=== PATIENT | female | born 1960 | race Caucasian/White ===

== ENCOUNTER → 2016-11-02 | Outpatient (CLI) | payer MEDICARE, MEDICAID ==
[~2016-11-02] MED LIST: ACETAMINOPHEN500 M3 PO; ALBUTEROL-200 PUFFS/ IH; ALBUTEROL0.09 MG/A1 IH; ASPIR-LOW81 MG PO; ASPIRIN 81MG TA81 MG PO; ATORVASTATIN CA20 MG PO; AVPAK AZITHROM250 MG PO; AZITHROMYCIN250 M1 PO; AZITHROMYCIN500 MG PO; BACTRIM DS 8001 TA1 PO; CALCITRIOL 00.25 MCG PO; CALCITRIOL0.25 MCG PO; CALCIUM 500 + D1 TA1 PO; CALCIUM500 MG PO; CARVEDILOL6.25 M1 PO; CARVEDILOL6.25 MG PO; CIPRO 500MG TA500 MG PO; CLARITIN10 MG OR; CLARITIN10 MG PO; CLOPIDOGREL75 M2 PO; COMBIVENT1 ARO IH; COUMADIN 5MG TAB5 MG PO; DIAZEPAM5 M1 PO; DIAZEPAM5 MG PO; DOCUSATE SODIU250 M1 PO; DOXYCYCLINE MO100 MG PO; DUONEB 3 MG/3 ML3 ML IH; EVISTA60 MG PO; EYE DROP ORIGIN15 ML OP; FAMOTIDINE 20MG20 MG PO; FLANAX220 MG PO; FLONASE 50 MCG16 GM; FUROSEMIDE 20MG20 MG PO; GABAPENTIN300 M1 PO; GABAPENTIN300 MG OR; GABAPENTIN300 MG PO; IBUPROFEN 600M600 MG PO; IBUPROFEN600 MG PO; IMDUR60 MG PO; IPRATROPIUM 2.2.5 ML IH; IPRATROPIUM BROM3 M1 IN; LANOXIN 0.120.125 MG PO; LEVAQUIN500 MG PO; LEVOFLOXACIN 5500 M1 PO; LEVOTHROID0.1 MG PO; LEVOTHYROXIN0.088 MG PO; LEVOTHYROXINE0.1 M2 PO; LIPITOR20 MG PO; LIPITOR40 MG PO; LISINOPRIL 5MG T5 MG PO; LISINOPRIL5 MG PO; LORTAB 500 MG-71 TAB PO; LOSARTAN POTAS100 MG PO; LOVENOX 6060 MG/0.6 SC; MACROBID100 M3 PO; MAGNESIUM400 MG PO; MEDROL 4MG. DOSE4 MG PO; METOPROLOL25 MG PO; MIRALAX(PO17 GM/1 PA PO; MUCINEX DM 60 M1 TER PO; NEURONTIN 300M300 MG PO; NICOTINE PATCH;14 MG TD; OMEPRAZOLE40 MG PO; OMNICEF 300 MG300 MG PO; ORAPRED15 MG/5 ML PO; OXYBUTYNIN5 MG PO; PERCOCET 5/3251 EACH PO; PHENERGAN 25MG.25 M1 PO; PLAVIX75 MG PO; PRAVASTATIN20 MG PO; PREDNICOT10 MG PO; PREDNISONE 20MG20 MG PO; PREDNISONE20 MG PO; RALOXIFENE HCL60 MG PO; RANITIDINE HCL150 MG OR; RANITIDINE HYD150 MG PO; SPIRIVA HA1 PUFF/INH IH; SULFAMETHOXAZOL1 TA6 PO; SYMBICORT1 AE1 IH; SYNTHROID 0.1M0.1 MG PO; SYNTHROID0.2 MG PO; TESSALON PERLE100 M1 PO; TESSALON PERLE100 MG PO; TESSALON PERLE200 MG PO; TRIAMCINOLON 0.80 G2 TP; TUMS REGULAR S500 MG PO; TYLENOL325 MG PO; VENTOLIN H0.09 MG/AC IH; VENTOLIN H0.09 MG/Ac IH; VIBRAMYCIN 100100 MG PO; WARFARIN4 MG PO; XARELTO15 MG PO; ZITHROMAX 250M250 MG PO; ZITHROMAX Z PA250 MG PO; ZITHROMAX Z-PA250 M1 PO; ZOFRAN4 MG PO; [UNRECOGNIZED DRUG - OTHER] PO
[2016-11-02 16:17] LABS: URINE BILIRUBIN - DIPSTICK NEGATIVE (NEG); URINE BLOOD TRACE-INTACT (NEG)
[2016-11-02 16:27] LABS: URINE SQUAMOUS CELLS OCC #/hpf (0-5)
[2016-11-02 16:36] LABS: HEMOGLOBIN 12.5 g/dL (12.2-16.2); LYMPH # 1.2 K/mm3 (0.7-4.5); LYMPH % 16.8 % (10-50.0)
[2016-11-02 17:32] LABS: BUN 11 mg/dL (7-18)
[2016-11-02 18:04] LABS: GFR (ESTIMATED) 52 ML/MIN (59-)
== END ==
LOC: LAB 15:16
PROVIDERS: Hospitalist
DX: N18.9 Chronic kidney disease, unspecified (principal); R82.99 Other abnormal findings in urine

== ENCOUNTER → 2016-11-04 | Outpatient (CLI) | payer MEDICARE, MEDICAID | LOC: LAB 14:16 | PROVIDERS: Hospitalist | DX: N18.9 Chronic kidney disease, unspecified (principal) ==

== ENCOUNTER 2017-04-03 12:54 | Emergency (ER) | payer MEDICARE, MEDICAID ==
[~2017-04-03] VITALS: Ht 149.9 cm; Wt 66.2 kg
[2017-04-03 13:16] LABS: URINE BILIRUBIN - DIPSTICK NEGATIVE (NEG); URINE BLOOD 3+ (NEG)
--- OUTSIDE RECORDS SUMMARY | 2017-04-03 13:16 | External Medical Summary Rpt ---
Author Author [employer] Organization [employer] Address Unknown Phone Unavailable Purpose Continuity of Care Document - through 2016
--- OUTSIDE RECORDS SUMMARY | 2017-04-03 13:31 | External Medical Summary Rpt ---
Author Author , Organization [employer] Address Unknown Phone Unavailable Care Team Providers Care Immigration Investigator Name Role Phone LURDES ANASTACIA, LURDES Unavailable Unavailable ANASTACIA LURDES ANASTACIA, LURDES Unavailable Unavailable ANASTACIA GILES, GILES Unavailable Unavailable GILES SONDRA, GILES Unavailable Unavailable SONDRA GILES SONDRA, GILES Unavailable Unavailable SONDRA GILES, FLO D, Unavailable Unavailable GILES, FLO D ALFARIS MOH, ALFARIS Unavailable Unavailable MOH ALFARIS MOH, ALFARIS Unavailable Unavailable MOH ROSARIO YEH JR, Unavailable Unavailable ROSARIO YEH JR [facility] Unavailable Unavailable [facility], [facility] Unavailable Unavailable INC, [facility] ANJUR-KAPALI GOMEZ, Unavailable Unavailable ANJUR-KAPALI GOMEZ ANJUR-KAPALI GOMEZ, Unavailable Unavailable ANJUR[facility]KAPAL[facility] GOMEZ TENA, TENA Unavailable Unavailable [facility] Unavailable Unavailable MEDICAL GROUP, [facility] BEINEKE ELISSA, BEINEKE Unavailable Unavailable ELISSA BESSON, BESSON Unavailable Unavailable BESSON IZA, BESSON Unavailable Unavailable IZA BESSON IZA, BESSON Unavailable Unavailable IZA KYARASON, COLBY A, Unavailable Unavailable BESSON COLBY A [facility] Unavailable [facility]available [facility] BIRD, BIRD Unavailable Unavailable BIRD ALL, BIRD ALL Unavailable Unavailable ANDER RODRIGUEZ, Unavailable Unavailable ANDER RODRIGUEZ SHANNA, ERLIN Unavailable Unavailable SHANNA PHILLIPS MD Unavailable Unavailable PSCPerla MD PSC JAZMIN CHAGO, JAZMIN Unavailable Unavailable [facility] Unavailable Unavailable [facility], [facility] Unavailable Unavailable [facility] AN[facility] OF Unavailable Unavailable [facility], [facility] CLEO GALLO Unavailable Unavailable CLEO NOHEMI, Unavailable Unavailable CLEO NOHEMI CLEO NOHEMI, Unavailable Unavailable CLEO NOHEMI CLEO, CIRA, Unavailable Unavailable CLEO, CIRA [facility] # [id number], Unavailable Unavailable [facility] # [id number] [id number], Unavailable Unavailable [id number] LAUREN STONE PA-C Unavailable Unavailable DEEPAK, LAUREN JENKINS PA-C DEEPAK NETTIE, NETTIE Unavailable Unavailable [facility] Unavailable [place]available [place] [facility] DON STEFANIE, Unavailable Unavailable DON STEFANIE DARCIE BRA, DARCIE BRA Unavailable Unavailable [facility], [facility] Unavailable Unavailable [facility], F[facility]UJI Unavailable Unavailable MEME FALLUJI, NEZAR M, Unavailable Unavailable FALLUJI, NEZAR M MARGARET BRAVO Unavailable Unavailable A, GEN BRAVOER A FEEBACK REE, FEEBACK Unavailable Unavailable REE SHAIKH THO, Unavailable Unavailable SHAIKH THO MCBRIDE MEL, Unavailable Unavailable MCBRIDE PARI DOUGLAS, Unavailable Unavailable PARI TYLER GIRON MAR, GIRON MAR Unavailable Unavailable AAMIR, AAMIR Unavailable Unavailable GAGUA IRI, GAGUA IRI Unavailable Unavailable BREEZY, BREEZY Unavailable Unavailable BREEZY MATY, BREEZY Unavailable Unavailable MATY BREEZY MATY, BREEZY Unavailable Unavailable MATY TIMOTHY TIJERINA S, Unavailable Unavailable BREEZY TIMOTHY S BRIJESH LIANG MD, Unavailable Unavailable BRIJESH LIANG MD, Unavailable Unavailable BRIJESH LIANG MD CORRIE RHO, CORRIE Unavailable Unavailable RHO CORRIE RHO, CORRIE Unavailable Unavailable RHO HAJIBRAHIM SARAH, Unavailable Unavailable HAJIBRAHIM SARAH ABRIL MARIJA, ABRIL Unavailable Unavailable ANY REDMOND, Unavailable Unavailable ANY MARROQUIN HARPEL STEFANIE, HARPEL Unavailable Unavailable STEFANIE HARPEL STEFANIE, HARPEL Unavailable Unavailable STEFANIE HARPEL, BRIJESH R, Unavailable Unavailable HARPEL, BRIJESH R SAMSON TIFFANIE, SAMSON Unavailable Unavailable TIFFANIE [facility] Un[facility] Unavailable INC, [facility] Unavailable Unavailable HOSPITAL P, [facility], Unavailable Unavailable [facility] AP WASSERMAN, AP Unavailable Unavailable JUAN M ATWOOD Unavailable Unavailable [facility] Unavailable Unavailable [facility], [facility] Unavailable Unavailable MEDICAL G, [facility] Un[facility], [facility] [employer] [facility], Unavailable Unavailable [facility] LAMIY, LAMIY Unavailable Unavailable LAMIY TAYLOR, LAMIY TAYLOR Unavailable Unavailable HERR, HERR Unavailable Unavailable HERR FRANKIE, HERR Unavailable Unavailable FRANKIE HERR FRANKIE, HERR Unavailable Unavailable FRANKIE SMITH GLE, SMTIH GLE Unavailable Unavailable SMITH, ROHAN L, Unavailable Unavailable SMITH, ROHAN L PEDRO DWI, PEDRO DWI Unavailable Unavailable PEDRO JR DWI, PEDRO Unavailable Unavailable JR DWI [place] [facility] ALBERT IAZ, ALBERT IZA Unavailable Unavailable ALBERT IZA, ALBERT IZA Unavailable Unavailable KATHY RUTLEDGE, Unavailable Unavailable KATHY RUTLEDGE MARCHINO IZA, Unavailable Unavailable MARCHINO IZA [facility] Unavailable Unavailable SERVICES, [facility] PARI PRATT, Unavailable Unavailable PARI PRATT COHEN Unavailable Unavailable COHEN JAM, Unavailable Unavailable COHEN PARI SIMPSON R, Unavailable Unavailable PARI COHEN R MCKEMIE JR IRAIDA, Unavailable Unavailable MCKEMIE JR IRAIDA MCKEMIE JR IRAIDA, Unavailable Unavailable MCKEMIE JR IRAIDA MOAMMAR NASIMA, MOAMMAR Unavailable Unavailable NASIMA MOAMMAR NASIMA, MOAMMAR Unavailable Unavailable NASIMA YOJANA MCCURDY, Unavailable Unavailable YOJANA MCCURDY PATRICK, Unavailable Unavailable CLYDE PEDRO JOHN M, Unavailable Unavailable [facility] Unavailable Unavailable [facility], [facility], Unavailable Unavailable [facility] Unavailable Unavailable LAB, [facility] PAVEZ MAR, PAVEZ MAR Unavailable Unavailable PETTEY JAM, PETTEY Unavailable Unavailable JAM PETTEY JAM, PETTEY Unavailable Unavailable JAM MERLENE MUB, MERLENE MUB Unavailable Unavailable MERLENE MUB, MERLENE MUB Unavailable Unavailable AGUDELO, AGUDELO Unavailable Unavailable AGUDELO NABIL, AGUDELO Unavailable Unavailable NABIL JACQUI TOD, JACQUI TOD Unavailable Unavailable ZIMMERMAN, ZIMMERMAN Unavailable Unavailable Sharif PEDRO, Unavailable Unavailable Sharif PEDRO MATY, Unavailable Unavailable DELIA MATY SCHULSTAD CARLOS, Unavailable Unavailable SCHULSTAD CARLOS SCHULSTAD, FLORECITA, Unavailable Unavailable SCHULSTAD, FLORECITA SHASHY LISA, SHASHY Unavailable Unavailable LISA PRATHERJAEI-CORNELL, Unavailable Unavailable SHOJAEI-CORNELL SOKAN BAB, SOKAN BAB Unavailable Unavailable SOKAN, TARYN O, Unavailable Unavailable SOKAN, TARYN O [facility] Unavailable Unavailable [facility], [facility] Unavailable [facility]available [facility], [facility], Unavailable Unavailable [facility], Unavailable Unavailable [facility] LAMBERT DON, Unavailable Unavailable LAMBERT DON LAMBERT DON, Unavailable Unavailable LAMBERT DON LAMBERT, DON R, Unavailable Unavailable LAMBERT, DON R [facility] Un[facility]available [place] [facility] WEHRMAN III IRAIDA, Unavailable Unavailable WEHRMAN III IRAIDA JERONIMO DON, JERONIMO DON Unavailable Unavailable JERONIMO HERRERA Unavailable Unavailable ALYCIA IV A, Unavailable Unavailable ALYCIA IV A [facility] Unavailable [facility] Un[facility], Un[facility], Unavailable [facility]available [facility] Purpose Continuity of Care Document - 11-22-2007 through 2016 Problems Code Diagnosis DOS Provider Status J0101 ACUTE 02-03-2017 [facility] RECURRENT PHYSICIANS MAXILLARY GROUP SINUSITIS J342 DEVIATED 02-03-2017 [facility] NASAL PHYSICIANS SEPTUM GROUP J432 CENTRILOBUL 02-02-2017 [place] AR [facility]ICAL EMPHYSEMA IMAGING ASS J449 CHRONIC 02-02-2017 [place] OBSTRUCTIVE MEDICAL PULMONARY IMAGING ASS DISEASE UNS R911 SOLITARY 02-02-2017 [place] PULMONARY MEDICAL NODULE IMAGING ASS E559 VITAMIN D 01-24-2017 [facility] UNSPECIFIED OF [place] E876 HYPOKALEMIA 01-24-2017 [facility] I10 ESSENTIAL 01-24-2017 [facility]IMARY [facility] HYPERTENSIO OF [place] N I701 ATHEROSCLER 01-24-2017 [facility] OSIS OF ASSOCIATES RENAL OF [place] ARTERY N189 CHRONIC 01-24-2017 [facility] K[facility]NEY [facility] DISEASE OF [place] UNSPECIFIED R339 RETENTION 01-04-2017 [facility] OF URINE [facility] P I471 SUPRAVENTRI 12-16-2016 [facility] C[facility] TACHYCARDIA INC I472 VENTRICULAR 12-16-2016 [facility] TACHYCARDIA INC R0609 OTHER FORMS 12-16-2016 [facility] DYSPNEA MEM [facility]OS[facility] INC R9431 ABNORMAL 12-16-2016 [facility] ELECTROCARD [facility] IOGRAM INC J309 ALLERGIC 12-08-2016 [place] [facility]PEC[facility] R002 PALPITATION 12-07-2016 [facility] G E039 HYPOTHYROID 12-06-2016 [facility] ISM PHYSICIANS UNSPECIFIED GROUP E8351 HYPOCALCEMI 12-06-2016 [facility] A PHYSICIANS GROUP E892 POSTPROCEDU 11-22-2016 [facility] RAL [facility]OC[facility]ATES HYPOPARATHY OF [place] ROIDISM N959 UNSPECIFIED 10-11-2016 [facility] MENOPAUSAL PHYSICIANS & GROUP PERIMENOPAU ROSALIE DISORDER R0781 PLEURODYNIA 10-11-2016 [facility] PHYSICIANS GROUP D649 ANEMIA 09-29-2016 [facility] P C498AWJ UNSPECIFIED 09-20-2016 [place] INJURY OF MEDICAL THORAX IMAGING ASS INITIAL ENCOUNTER Z98907S CONTUSION 09-16-2016 [facility] RT FRONT [facility] WALL THORAX INC INITIAL ENCOUNTER T65293 PERSONAL 09-16-2016 [facility] HISTORY OF [facility] NICOTINE INC DEPENDENCE K219 GASTRO-ESOP 09-14-2016 [facility] H REFLUX PHYSICIANS DISEASE GROUP WITHOUT ESOPHAGITIS E8342 HYPOMAGNESE 09-01-2016 [facility] CINDY PHYSICIANS GROUP G4734 IDIOPATH 09-01-2016 [facility] ALVEOL HYPOVENTILA [place] J439 EMPHYSEMA 09-01-2016 [facility] HOSPI R918 OTHER 09-01-2016 [facility] ABNORMAL HOSPI FINDING OF LUNG FIELD Z139 ENCOUNTER 09-01-2016 [facility] FOR PHYSICIANS SCREENING GROUP UNSPECIFIED R05 COUGH 08-25-2016 [place] [facility] R079 CHEST PAIN 08-25-2016 [place] UNSPECIFIED MEDICAL IMAGING ASS J069 ACUTE UPPER 08-22-2016 [facility] RESPIRATORY INC INFECTION UNSPECIFIED R0989 OTH SPEC SX 08-22-2016 [place] & SIGNS MEDICAL INVLV THE IMAGING ASS CIRC & RESP SYS N390 URINARY 07-21-2016 [facility] TRACT [facility] INFECTION INC SITE NOT SPECIFIED M78420 OTHER 07-12-2016 [facility] MUSCLE PHYSICIANS SPASM GROUP R56107 PAIN IN 07-12-2016 [facility] UNSPECIFIED PHYSICIANS LIMB GROUP N3020 OTHER 07-12-2016 [facility] CHRONIC [facility] CYSTITIS INC WITHOUT HEMATURIA H5712 OCULAR PAIN 07-11-2016 [facility] LEFT EYE [facility] INC R109 UNSPECIFIED 07-02-2016 [place] ABDOMINAL MEDICAL PAIN IMAGING ASS Z9049 ACQUIRED 07-02-2016 [facility] OTH MEDICAL SPEC PARTS IMAGING ASS DIGESTIVE TRACT H109 UNSPECIFIED 06-28-2016 [facility] PHYSICIANS CONJUNCTIVI GROUP TIS M46038 PAIN IN 06-21-2016 [facility] RIGHT ARM [facility] INC J04602 PAIN IN 06-21-2016 [facility] INC R55328 PAIN IN 06-21-2016 [facility] RIGHT LEG [facility] INC I54729 PAIN IN 06-21-2016 [facility]G [facility] INC D126 BENIGN 06-15-2016 [facility] NEOPLASM OF PHYSICIANS COLON GROUP UNSPECIFIED Y94272 PERSONAL 06-15-2016 [facility] HISTORY OF PHYSICIANS COLONIC GROUP POLYPS D497 NEOPLASM OF 06-03-2016 [facility] UNS BHV PHYSICIANS ENDOCRN GROUP GLAND & OTH PART NS E201 PSEUDOHYPOP 06-03-2016 [facility] ARATHYROIDI PHYSICIANS SM GROUP G737 MYOPATHY IN 06-03-2016 [facility] DISEASES PHYSICIANS CLASSIFIED GROUP ELSEWHERE K635 POLYP OF 06-03-2016 [facility] COLON PHYSICIANS GROUP Z09 ENC F/U 06-03-2016 [facility] EXAM AFTR ANESTH OF CMPL TX OTH THE BLUE THAN MALIG NEOPLSM Z1211 ENCOUNTER 06-03-2016 [facility] SCREENING PHYSICIANS MALIGNANT GROUP NEOPLASM OF COLON M859 DISORDER OF 05-20-2016 [facility] BONE PHYSICIANS DENSITY & GROUP STRUCTURE UNSPECIFIED J209 ACUTE 05-15-2016 [place] BRONCHITIS [facility] P G55875 ENCOUNTER 04-28-2016 [facility] AL EXAMINATION S80455 PAIN IN ARM 04-26-2016 [facility] PHYSICIANS UNSPECIFIED GROUP Y76617 PAIN IN LEG 04-26-2016 [facility] PHYSICIANS UNSPECIFIED GROUP M797 FIBROMYALGI 04-26-2016 [facility] A PHYSICIANS GROUP J441 CHRONIC 04-17-[address] [place] [address] [facility] PULMONARY INC DZ W/EXACERBAT ION 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 04-06-2016 [place] [facility] P N319 NEUROMUSCUL 04-06-2016 [facility] P OF BLADDER UNSPECIFIED N289 DISORDER OF 04-01-2016 [place] [facility]ICAL URETER IMAGING ASS UNSPECIFIED R1030 LOWER 04-01-2016 [place] ABDOMINAL MEDICAL PAIN IMAGING ASS UNSPECIFIED R3919 OTHER 04-01-2016 [place] DIFFICULTIE MEDICAL S WITH IMAGING ASS MICTURITION R1084 GENERALIZED 03-23-2016 [facility] P Z720 TOBACCO USE 03-23-2016 [facility] P W08731 SPONDYLOSIS 02-27-2016 [facility]O RADI[facility] MYELOPATH/R ASSOC ADICULOPATH Y LUMB RGN M545 LOW BACK 02-27-2016 [facility] PAIN [facility]IOLOGY ASSOC M546 PAIN IN 02-27-2016 [facility]ACIC [facility] SPINE ASSOC Z9889 OTHER 02-23-2016 NE[facility] SPECIFIED ASSOCIATES POSTPROCEDU OF [place] K06273 ATHEROSCLER 02-18-[address] [facility] QAGAN TAYAGUNGIN ART HEALTH EXT MEDICAL G WNTERMIT OSIEL LT LEG P58665 UNS 02-16-2016 [facility] QAGAN TAYAGUNGIN ART EXTREM BILATERAL LEGS I739 PERIPHERAL 02-16-2016 [facility] DISEASE UNSPECIFIED R3915 URGENCY OF 01-27-2016 [place] URINATION [facility] P J329 CHRONIC 01-15-2016 [facility] SINUSITIS PHYSICIANS UNSPECIFIED GROUP I6523 OCCLUSION & 01-01-[address] 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 I708 ATHEROSCLER 11-24-2015 [place] OSIS OF MEDICAL OTHER IMAGING ASS ARTERIES K17670 PAIN IN 11-24-2015 [place] UNSPECIFIED MEDICAL LOWER LEG IMAGING ASS W97838 OTH SPEC 11-24-2015 [facility] D/O BONE [facility] DENSITY INC STRUCTURE RT THIGH R202 PARESTHESIA 11-24-2015 [facility] OF SKIN [facility] INC G16526 FACIAL 11-24-2015 [place] WEAKNESS MEDICAL IMAGING ASS J22389 ENCOUNTER 11-24-2015 [facility] FOR [facility] SCREENING INC FOR OSTEOPOROSI S G64 OTHER 10-28-2015 [facility] DISORDERS PHYSICIANS OF GROUP PERIPHERAL NERVOUS SYSTEM G5791 UNSPECIFIED 10-25-2015 [facility] MONONEUROPA INC THY RIGHT LOWER LIMB G5792 UNSPECIFIED 10-25-2015 [facility] MONONEUROPA INC THY LEFT LOWER LIMB J40 BRONCHITIS 10-13-2015 [place] NOT MEDICAL SPECIFIED IMAGING ASS ACUTE OR CHRONIC R0602 SHORTNESS 10-13-2015 [place] OF BREATH MEDICAL IMAGING ASS J4531 MILD 09-30-2015 [facility]STENT [facility] ASTHMA WITH INC ACUTE EXACERBATIO N I491 ATRIAL 09-09-2015 [facility] DEPOLARIZAT MEDICAL G ION R0789 OTHER CHEST 09-09-[address] [facility] PAIN HEALTH MEDICAL G E119 TYPE 2 08-21-[address] 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 P RESPIRATORY ABNORMALITI ES 4019 UNSPECIFIED 07-23-2015 [facility] P N 5950 ACUTE 07-22-2015 [place] CYSTITIS [facility] P 5990 URINARY 07-22-2015 [facility] INFECTION INC SITE NOT SPECIFIED 61768 HEMATURIA 07-22-2015 [facility] UNSPECIFIED [facility] INC 56222 CHEST PAIN 07-10-2015 [facility] UNSPECIFIED MEDICAL IMAGING ASS 2724 OTHER AND 07-03-2015 [facility]NSPECIFIED [facility] INC HYPERLIPIDE CINDY 06459 ESOPHAGEAL 07-03-2015 [facility] ASS 94281 DIARRHEA 07-03-2015 [facility] 7906 OTHER 07-03-2015 [facility] ABNORMAL [facility] BLOOD INC CHEMISTRY 52551 OTHER 07-02-2015 [facility] CANDIDIASIS PHYSICIANS OF OTHER GROUP SPECIFIED SITES 5758 OTHER 07-02-2015 [facility] SPECIFIED [facility] DISORDER OF INC GALLBLADDER 7840 HEADACHE 07-02-2015 [facility] INC V1582 PERS HX 07-02-2015 [place] TOBACCO USE MEM HOS[facility] PRESENTING INC HAZARDS HEALTH 496 CHRONIC 06-20-2015 [facility] OBSTRUCTION [facility] NEC 26229 LUMP OR 04-24-2015 [place] MASS IN MEDICAL BREAST IMAGING ASS 2113 BENIGN 04-02-2015 [facility] NEOPLASM OF PHYSICIANS COLON GROUP 78166 REFLUX 04-02-2015 [facility] ESOPHAGITIS PHYSICIANS GROUP 43134 UNS 04-02-2015 [facility] GASTRITIS&G PHYSICIANS ASTRODUODIT GROUP IS W/O MENTION HEMORR V7651 SPECIAL 04-02-2015 [facility] SCREENING PHYSICIANS FOR GROUP MALIGNANT NEOPLASMS COLON 39703 OTHER 02-04-2015 [facility] P OF BLADDER 80941 OTHER 02-04-2015 [place] ABNORMALITY [facility] P URINATION 14403 OBSTRUCTIVE 01-24-2015 [facility] 226 BENIGN 11-11-2014 [facility] NEOPLASM OF THYROID GLANDS 17557 DYSPHAGIA 11-11-2014 [facility] UNSPECIFIED 490 BRONCHITIS 11-06-2014 [facility] P ACUTE OR CHRONIC 76206 ASTHMA, 11-06-2014 [facility] P UNSPECIFIED STATUS 60209 OTHER 11-03-2014 [place] DISEASES OF [facility] HOSPITAL P ELSEWHERE CLASSIFIED 7862 COUGH 11-03-2014 [place] [facility] 4439 UNSPECIFIED 10-07-2014 [place] PERIPHERAL MEDICAL VASCULAR IMAGING ASS DISEASE 62568 SOLITARY 09-11-[address] [place] [address] [facility] NODULE INC 47825 OBSTRUCTIVE 07-24-2014 [facility] CHRONIC PHYSICIANS BRONCHITIS GROUP WITH EXACERBATIO N 486 PNEUMONIA, 07-23-2014 [facility] ORGANISM PHYSICIANS UNSPECIFIED GROUP 2449 UNSPECIFIED 07-05-2014 [facility] HYPOTHYROID [facility] P ISM 4139 OTHER AND 07-05-2014 [facility] P PECTORIS 7823 EDEMA 07-05-2014 [facility] P 7295 PAIN IN 05-07-2014 [facility] SOFT [facility] TISSUES OF INC LIMB V1251 PERSONAL 05-07-2014 [facility] HISTORY, [facility] VENOUS INC THROMBOSIS AND EMBOLISM 67346 SHORTNESS 04-13-2014 [facility] MOH OF BREATH 69750 OTHER ANKLE 03-06-2014 [facility] SPRAIN AND [facility] STRAIN INC V571 OTHER 03-06-2014 [place] PHYSICAL [facility] THERAPY INC 15563 OTHER 02-21-2014 [facility] DISEASES OF LARYNX V5869 LONG-TERM 02-18-2014 [place] (CURRENT) [facility] USE OF INC OTHER MEDICATIONS 30554 HYPOCALCEMI 01-10-[address] [facility] INC V5861 LONG-TERM 11-16-2013 [facility] (CURRENT) [facility] USE OF INC ANTICOAGULA NTS 515 POSTINFLAMM 10-29-2013 [facility] ATORY NOHEMI PULMONARY FIBROSIS 4254 OTHER 10-26-2013 [facility] CARDIOMYOPA SHAGGY V143 PERSONAL 10-26-2013 [facility] HISTORY HOSPITAL ALLERGY OTH ANTI-INFECT CLAUDE AGT V145 PERSONAL 10-26-2013 [facility] HISTORY OF HOSPITAL ALLERGY TO NARCOTIC AGENT [address] 10-08-2013 [facility] SUBENDOCARD [facility] P SUBSQT EPIS CARE 92740 COR 10-08-2013 [facility] ATHEROSLERO [facility] P TYPE VESSEL QAGAN TAYAGUNGIN/JUDY T 16539 OTHER CHEST 10-08-2013 [facility] P V1255 PERSONAL 10-08-2013 [facility] HISTORY OF [facility] P EMBOLISM 26668 OSTEOARTHRO 09-12-2013 [facility] S UNSPEC NOHEMI GEN/LOC PELV REGION&THIG H 7242 LUMBAGO 09-12-2013 [facility] NOHEMI 5110 PLEURISY 09-04-2013 [facility] WITHOUT NOHEMI MENTION EFFUS/CURRE NT TB 2869 OTHER AND 08-27-2013 WEHRMAN III UNSPECIFIED [place] COAGULATION DEFECTS 68917 OTHER 08-27-2013 WEHRMAN III CHRONIC [place] PAIN 72192 METHICILLIN 08-21-2013 [facility] RESISTANT NOHEMI STAPHYLOCOC CUS AUREUS 3682 [address]IPLOPIA 08-21-[address] [facility] 7820 DISTURBANCE 08-21-2013 CLE[facility] OF SKIN NOHEMI SENSATION 7944 NONSPECIFIC 08-21-2013 [facility] ABNORM NOHEMI RESULTS KIDNEY FUNCTION STUDY 27957 DIAB W/O 08-18-2013 JERROD COUCH COMP TYPE II/UNS NOT STATED UNCNTRL 19234 ABDOMINAL 08-18-2013 [facility] PAIN, NOHEMI UNSPECIFIED SITE 7822 LOCALIZED 08-13-2013 [facility] SUPERFICIAL NOHEMI SWELLING MASS OR LUMP V1011 PERSONAL 08-11-2013 [facility] HISTORY NOHEMI MALIG NEOPLASM BRONCHUS&MELANY NG V711 OBSERVATION 08-11-2013 [facility] FOR NOHEMI SUSPECTED MALIGNANT NEOPLASM 7847 EPISTAXIS 08-07-2013 [facility] 98[address] CORONARY 08-02-2013 BESSON IZA ATHEROSCLER OSIS QAGAN TAYAGUNGIN CORONARY ARTERY 4821 PNEUMONIA 08-02-2013 [facility] 07181 OTHER 07-24-2013 JERONIMO DON PULMONARY EMBOLISM AND INFARCTION 4179 UNSPECIFIED 07-24-2013 [facility] DISEASE OF NOHEMI PULMONARY CIRCULATION 4239 UNSPECIFIED 07-24-2013 MERLENE MUB DISEASE OF PERICARDIUM 4242 TRICUSPID 07-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 MERLENE MUB VALVE DISORDERS SPEC NONRHEUMATI C 4280 CONGESTIVE 07-24-2013 MOAMMAR NASIMA HEART FAILURE UNSPECIFIED 4293 CARDIOMEGAL 07-24-2013 MERLENE MUB Y 15412 OTHER 07-24-2013 KYARASON IZA PULMONARY INSUFFICIEN CY NEC 73784 ACUTE AND 07-24-2013 MOAMMAR NASIMA CHRONIC RESPIRATORY FAILURE V141 PERSONAL 07-24-2013 KYARAYISEL IZA HISTORY ALLERGY OTHER ANTIBIOTIC AGENT V4502 AUTOMATIC 07-24-2013 [facility] IMPLANTABLE NOHEMI CARDIAC DEFIBRILLAT OR SITU V550 ATTENTION 07-24-2013 [facility] TO NOHEMI TRACHEOSTOM Y V551 ATTENTION 07-24-2013 [facility] TO NOHEMI GASTROSTOMY V5882 ENCOUNTER 07-24-2013 CORRIE RHO FITTING&ADJ NON-VASCULA R CATHETER NEC 4240 MITRAL 07-22-2013 ANJUR-KAPAL VALVE I GOMEZ DISORDERS 54590 ACUT 07-21-2013 ANJUR-KAPAL MYOCARD I GOMEZ INFARCT UNS SITE EPIS CARE UNS 67580 OTHER 07-20-2013 LURDES ANASTACIA NONSPECIFIC ABNORMAL FINDING OF LUNG FIELD 97730 ACUT 07-19-2013 [facility]BERT IZA MYOCARD INFARCT OTH INF WALL EPIS CARE UNS 7905 OTHER 07-19-2013 GAGUA IRI NONSPECIFIC ABNORMAL SERUM ENZYME LEVELS 22372 HYPOXEMIA 07-19-[address] [place] [address] 07-17-2013 BESSON IZA SUBENDOCARD IAL INFARCT INIT EPIS CARE 06094 ACUTE 07-17-2013 BESSON IZA SYSTOLIC HEART FAILURE 5180 PULMONARY 07-17-2013 CLE[facility] COLLAPSE NOHEMI 23921 ACUTE 07-17-2013 BESSON IZA RESPIRATORY FAILURE 3559 MONONEURITI 06-13-2013 CHRISTINE Simon OF [facility] UNSPECIFIED SITE 31942 PAIN IN 04-06-2013 CLEO JOINT, NOHEMI ANKLE AND FOOT 84100 ACHILLES 04-06-2013 PETTEY JAM BURSITIS OR TENDINITIS 38560 PLANTAR 04-06-2013 PETTE[facility] JAM FASCIAL FIBROMATOSI S 4011 ESSENTIAL 01-01-2013 [facility] VAL[facility]INE HYPERTENSIO N, BENIGN 74132 OTHER 01-01-2013 KEW[facility] VAL[facility] PREMATURE BEATS 4359 UNSPECIFIED 01-01-2013 [facility] VALENTINE TRANSIENT CEREBRAL ISCHEMIA 6272 SYMPTOMATIC 12-07-2012 [facility] STEFANIE MENOPAUSAL/ FEMALE CLIMACTERIC STATES 4373 CEREBRAL 10-12-2012 [facility] NONRUPTURED INC 4479 UNSPECIFIED 10-12-2012 [facility] DISORDERS [facility] OF ARTERIES INC AND ARTERIOLES 2409 GOITER, 10-06-2012 [facility] UNSPECIFIED NOHEMI 6259 UNSPEC 10-06-2012 [facility] W/FEMALE GENITAL ORGANS V7612 OTHER 10-06-2012 [facility] SCREENING [facility] MAMMOGRAM INC 4550 INTERNAL 09-28-2012 [facility] STEFANIE HEMORRHOIDS WITHOUT MENTION COMP V7231 ROUTINE 09-28-2012 [facility] STEFANIE GYNECOLOGIC AL EXAMINATION V7641 SCREENING 09-28-2012 [facility] STEFANIE FOR MALIGNANT NEOPLASM OF THE RECTUM 4928 OTHER 09-08-2012 [facility] EMPHYSEMA NOHEMI 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 52816 OCCL&STENOS 02-23-2012 [place] MX&BILAT MEDICAL PRECERBRL IMAGING ASS ART W/O INFARCT 80041 CHRONIC 02-23-2012 [facility] OBSTRUCTIVE [facility] ASTHMA INC UNSPECIFIED 7802 SYNCOPE AND 02-23-2012 [facility] COLLAPSE [facility] INC 48229 URGE 12-07-2011 [facility] INCONTINENC [facility] E INC 7866 SWELLING, 10-12-2011 [place] MEDICAL LUMP IN IMAGING ASS CHEST 69352 DISPLCMT 10-01-2011 [place] 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 95427 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-2011 [place] 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 V163 FAMILY 09-20-2011 [place] HISTORY OF MEDICAL MALIGNANT IMAGING ASS NEOPLASM OF BREAST 6256 FEMALE 07-20-2011 [facility] P E 98860 UNSPECIFIED 07-01-2011 [facility] URINARY [facility] INCONTINENC INC E 08793 HYPERCALCEM 04-08-2011 [facility] IA [facility] INC 5853 CHRONIC 04-08-2011 [facility] DISEASE INC STAGE III (MODERATE) 4241 AORTIC 03-26-2011 [facility] VALVE PHYSICIANS DISORDERS GROUP V7281 PRE-OPERATI 03-26-2011 [facility] VE PHYSICIANS CARDIOVASCU GROUP LAR EXAMINATION 2440 POSTSURGICA 11-30-2010 [facility] HURLEY HYPOTHYROID ISM 82175 DEHYDRATION 11-30-2010 [facility] INC 2768 HYPOPOTASSE 11-30-2010 [facility] H[place]LEY 7817 TETANY 11-30-2010 [facility] P 47112 ANAL OR 11-05-2010 C [facility] RECTAL PAIN JACQUELINE PALMER PSC 12092 FECAL 11-05-2010 C [facility] SMEARING JACQUELINE PALMER PSC 22020 DISORDER OF 10-27-2010 BRIJESH CADENA AND AZUL PALMER CARTILAGE UNSPECIFIED 4279 UNSPECIFIED 09-21-2010 [facility] CARDIAC PHYSICIANS DYSRHYTHMIA GROUP 7859 OTHER 09-07-2010 [place] SYMPTOMS MEDICAL INVOLVING IMAGING ASS CARDIOVASCU LAR SYSTEM 00687 OTH 09-07-2010 [place] NONSPECIFIC [facility] ABNORM CV INC SYSTEM FUNCTION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 HUMIDFR&M ASK ADMN SET A7003 YOUR YOUR SM VOL 6 PHARMACY PHARMACY NONFILTR [facility] PNEUMAT NEBULIZR DISPBL PHRM Q0513 YOUR YOUR DISPENSIN 6 PHARMACY PHARMACY [employer] LLC INHALATIO N RX; PER 30 DAYS AREO MASK A7015 YOUR YOUR USED W/ 6 PHARMACY PHARMACY DME [employer] ALBUTEROL J7620 YOUR YOUR TO 2.5 6 PHARMACY PHARMACY [employer] IPRATROPI UM BROM TO 0.5 MG XTRNL ECG 81875 ROSS HAWKINS & 48 HR 6 [facility] [place] [address] ROSS HAWKINS PARATHORM 6 [facility] ONE INC INC 25 96010 ROSS HAWKINS HYDROXY 6 [facility] INCLUDES INC INC FRACTIONS IF PERFORMED COMPREHEN 09806 ROSS HAWKINS SIVE 6 [facility] METABOLIC INC INC PANEL COLLECTIO 99310 ROSS HAWKINS N VENOUS [address] [facility] BLOOD INC INC VENIPUNCT URE EXTERNAL 60442 ROSS HAWKINS ECG [address] [facility] SCANNING INC INC ANALYSIS REPORT COMPREHEN 45132 ROSS HAWKINS SIVE 6 [facility] [place] [address] ROSS HAWKINS INFUSION [address] [facility] THERAPY/P INC INC ROPHYLAXI S /DX 1ST TO 1 HR ECG 63193 ROSS HAWKINS ROUTINE [address] [facility] ECG INC INC W/LEAST 12 LDS TRCG ONLY W/O I&R ECG 81195 ROSS HAWKINS ROUTINE [address] [facility] ECG INC INC W/LEAST 12 LDS TRCG ONLY W/O I&R RADIOLOGI 31676 ROSS HAWKINS C EXAM [address] [facility] CHEST 2 INC INC VIEWS FRONTAL&L ATERAL ECG 83058 ROSS ELDER ROUTINE 6 [facility] W/LEAST P 12 LDS I&R ONLY URNLS DIP 47168 ROSS HAWKINS 6 [facility] STICK/TAB INC INC [place] [address] ROSS HAWKINS TROPONIN [address] [facility] QUANTITAT INC INC CLAUDE PRTBLE E0431 DAREK MCGOWAN GASEOUS 6 HOME MAR O2 SYS MEDICAL RENT; EQUIPME FLWMTR HUMIDFR&M ASK O2 CONC 1 E1390 DAREK MCGOWAN DEL PORT 6 HOME MAR 85%/>02 MEDICAL CONC AT [facility] FLW RATE BASIC 24735 ROSS HAWKINS METABOLIC [address] [facility] PANEL INC INC CALCIUM TOTAL ECG 52793 ROSS KYARAYISEL ROUTINE 6 [facility] W/LEAST P 12 LDS I&R ONLY ECG 28275 ROSS HAWKINS ROUTINE 6 [facility] ECG INC INC W/LEAST 12 LDS TRCG ONLY W/O I&R BLOOD 20480 ROSS HAWKINS COUNT 6 [facility] COMPLETE INC INC AUTO&AUTO DIFRNTL WBC COLLECTIO 75606 ROSS ROSS N VENOUS 6 [facility]OS[facility] BLOOD INC INC VENIPUNCT URE ALBUTEROL J7620 YOUR YOUR TO 2.5 6 PHARMACY PHARMACY [employer] IPRATROPI UM BROM TO 0.5 MG PHRM Q0513 YOUR YOUR DISPENSIN 6 PHARMACY PHARMACY G [employer] INHALATIO N RX; PER 30 DAYS ADMN SET A7003 YOUR YOUR SM VOL 6 PHARMACY PHARMACY NONFILTR [employer] [facility] PNEUMAT NEBULIZR DISPBL RADIOLOGI 96850 ROSS HAWKINS C EXAM 6 [facility]OS[facility] CHEST 2 INC INC VIEWS FRONTAL&L ATERAL PRESSURIZ 35649 ROSS HAWKINS ED/NONPRE 6 [facility] SSURIZED INC INC INHALATIO N TREATMENT NONINVASI 96088 ROSS HAWKINS VE 6 [facility] EAR/PULSE INC INC OXIMETRY SINGLE DETER URETHROCY 17173 [place] ALL STOGRAPHY 6 MEDICAL VOIDING IMAGING RS&I ASS LOCM Q9965 ROSS HAWKINS 100-199 6 [facility] MG/ML INC INC IODINE CONCENTRA TION PER ML PRTBLE E0431 DAREK VOGTMARLENYSaida GASEOUS 6 HOME LISA O2 SYS MEDICAL RENT; EQUIPOH FLWMTR HUMIDFR&M ASK O2 CONC 1 E1390 DAREK SHASHY DEL PORT 6 HOME LISA 85%/>02 MEDICAL CONC AT [facility] FLW RATE AREO MASK A7015 YOUR YOUR USED W/ 6 PHARMACY PHARMACY DME [employer] LLC ADMN SET A7003 YOUR YOUR SM VOL 6 PHARMACY PHARMACY NONFILTR LLC LLC PNEUMAT NEBULIZR DISPBL PHRM Q0513 YOUR YOUR DISPENSIN 6 PHARMACY PHARMACY [employer] LLC INHALATIO N RX; PER 30 DAYS ALBUTEROL J7620 YOUR YOUR TO 2.5 6 PHARMACY PHARMACY [employer] IPRATROPI UM BROM TO 0.5 MG PRTBLE E0431 DAREK O'IRA GASEOUS 6 HOME MOL O2 SYS MEDICAL RENT; EQUIPOH FLWMTR HUMIDFR&M ASK O2 CONC 1 E1390 DAREK O'IRA DEL PORT 6 HOME MOL 85%/>02 MEDICAL CONC AT [facility] FLW RATE MRI 29844 CENTR[facility] GIRON MAR SPINAL 6 RADIOLOGY CANAL ASSOC THORACIC W/O CONTRAST MATRL MRI 26475 CENTR[facility] GIRON MAR SPINAL 6 RADIOLOGY CANAL ASSOC LUMBAR W/O CONTRAST MATERIAL NON-INVAS [address] MEME PHYSIOLOG MEDICAL IC STD G EXTREMITY ART 2 LEVEL DUP-SCAN 80312 [facility] 6 [facility] MEME ART/ARTL MEDICAL BPGS G COMPL BI STUDY DUP-SCAN [address] [facility] ART/ARTL BPGS COMPL BI STUDY NON-INVAS [address] PHYSIOLOG IC STD EXTREMITY ART 2 LEVEL DUP-SCAN 39797 NEPHROLOG NEEL ARTL JG 6 Y THO ABDL/PEL/ ASSOCIATE SCROT&/RP S OF BERRY R ORGN COM PRTBLE E0431 DAREK KERN GASEOUS 6 HOME SHANNA O2 SYS MEDICAL RENT; EQUIPME FLWMTR HUMIDFR&M ASK O2 CONC 1 E1390 DAREK KERN DEL PORT 6 HOME SHANNA 85%/>02 MEDICAL CONC AT [facility] FLW RATE LALA 97855 ROSS GILES POST-VOID 6 [facility] RESIDUAL P URINE&/BL ADDER CAP URNLS DIP 74342 ROSS DE SOUZA 6 [facility] STICK/TAB [place] [address] ROSS HAWKINS ABDOMEN & [address] [facility] PELVIS INC INC W/O CONTRAST MATERIAL CULTURE 10056 ROSS HAWKINS BACTERIAL [address] [facility] BLOOD INC INC AEROBIC W/ID ISOLATES BLOOD 54232 ROSS HAWKINS COUNT 6 [facility] COMPLETE INC INC AUTO&AUTO DIFRNTL WBC INJECTION J2405 ROSS TAIWANESE 6 [facility] H[facility] ESOTERIC ONDANSETR INC LABORATOR ON HCL I PER 1 MG THERAPEUT 43954 ROSS HAWKINS IC [address] [facility] INJECTION INC [place] [address] ROSS HAWKINS INFUSION [address] [facility] [facility] THERAPY/P INC INC ROPHYLAXI S /DX 1ST TO [place] [address] ROSS HAWKINS LACTATE 6 [facility] INC INC CULTURE 87097 ROSS HAWKINS BACTERIAL [address] [facility] INC INC QUANTTATI VE COLONY COUNT URINE SLCTV 31863 [facility] C[facility] 6 [facility] CAROTID/I MEDICAL NNOM ART G ANGIO XTRCRANL ART PRTBLE E0431 [facility] G[facility] 6 HOME IZA O2 SYS MEDICAL RENT; [facility] HUMIDFR&M ASK O2 CONC 1 E1390 DAREK ESCOBEDO DEL PORT 6 HOME IZA 85%/>02 [facility] FLW RATE KIDNEY [address]8599 [place] ALL IMG 6 MEDICAL MORPHOLOG IMAGING Y ASS VASCULAR FLOW 1 W/RX URNLS DIP 49639 ROSS GILES 6 [facility] LET RGNT P NON-AUTO W/O MICRSCP CALCIUM 10422 ROSS HAWKINS TOTAL 6 [facility] INC INC COLLECTIO 95235 ROSS HAWKINS N VENOUS [address] [facility] [facility] [place]LOOD [place] [address] ROSS HAWKINS FREE [address] [facility] [address] ROSS HAWKINS THYROID [address] [facility] STIMULATI INC INC NG HORMONE TSH O2 CONC 1 E1390 DAREK BELTRAN PORT 6 HOME HOME 85%/>02 MEDICAL MEDICAL CONC AT [facility] FLW [facility]ATE PRTBLE E0431 DAREKODNNA OSWALD GASEOUS 6 HOME HOME O2 SYS MEDICAL MEDICAL RENT; EQUIPME EQUIPME FLWMTR HUMIDFR&M ASK CT THORAX 78366 ROSS HAWKINS W/O [address] [facility] CONTRAST INC INC MATERIAL DUPLEX 52959 ROSS HAWKINS SCAN 6 [facility] HOS[facility] EXTRACRAN [place] [address] ROSS HAWKISN INFUSION 6 [facility] THERAPY/P INC INC ROPHYLAXI S /DX 1ST TO 1 HR CTA ABDL 39033 [facility]&BI 6 MEDICAL NOHEMI ILIOFEM IMAGING W/CONTRAS ASS T&[place] [address] ROSS HAWKINS INFUSION [address] [facility] THERAPY INC INC PROPHYLAX IS/DX EA HOUR O2 CONC 1 E1390 DAREKDONNA BELTRAN PORT 6 HOME SHANNA 85%/>02 [facility] FLW [facility]ATE PRTBLE E0431 DAREKDONNA KERN GASEOUS 6 HOME SHANNA O2 SYS MEDICAL RENT; EQUIPME FLWPAR HUMIDFR&M ASK COMPREHEN 38901 ROSS HAWKINS SIVE [address] [facility] METABOLIC INC INC PANEL BLOOD 40900 ROSS HAWKINS COUNT [address] [facility] COMPLETE INC INC AUTO&AUTO DIFRNTL WBC RADIOLOGI 23801 ROSS HAWKINS C EXAM [address] [facility] CHEST 2 INC INC VIEWS FRONTAL&L ATERAL ALBUTEROL J7620 YOUR YOUR TO 2.5 5 PHARMACY PHARMACY [employer] IPRATROPI UM BROM TO 0.5 MG PHRM Q0513 YOUR YOUR DISPENSIN 5 PHARMACY PHARMACY [employer] INHALATIO N RX; PER 30 DAYS PRTBLE E0431 DAREK SPRAGUE BRA GASEOUS 5 HOME O2 SYS MEDICAL RENT; EQUIPME FLWMTR HUMIDFR&M ASK O2 CONC 1 E1390 DAREKDONNA SEWELLK BRA DEL PORT 5 HOME 85%/>02 MEDICAL CONC AT [facility] FLW RATE RADIOLOGI 02727 ROSS HAWKINS C EXAM 5 [facility] CHEST 2 INC INC VIEWS FRONTAL&L ATERAL ECG 42179 [facility] ROUTINE 5 [facility] ECG MEDICAL MEDICAL W/LEAST G G 12 LDS W/I&R ALBUTEROL J7620 YOUR YOUR TO 2.5 5 PHARMACY PHARMACY [employer] IPRATROPI UM BROM TO 0.5 MG PHRM Q0513 YOUR YOUR DISPENSIN 5 PHARMACY PHARMACY [employer] INHALATIO N RX; PER 30 DAYS PRTBLE E0431 DAREKDONNA RAMIREZRELL GASEOUS 5 HOME HOME O2 SYS MEDICAL MEDICAL RENT; EQUIPOH EQUIPME FLWMTR HUMIDFR&M ASK O2 CONC 1 E1390 DAREK OSWALD DEL PORT 5 HOME HOME 85%/>02 MEDICAL MEDICAL CONC AT FLW RATE NONCOVERE A9270 [facility] IT[facility] OR 5 HOSPITAL HOSPITAL SERVICE NONCOVERE A9270 [facility] IT[facility] OR 5 HOSPITAL HOSPITAL SERVICE EPHYS 47649 [facility] LAMISaida TAYLOR EVAL 5 [facility] W/ABLATIO MEDICAL N G SUPRAVENT ARRHYTHMI A RADEX 14050 [place] BEINE ESOPHAGUS 5 MEDICAL ELISSA IMAGING ASS HEPATOBIL 35699 [place] CLEO IARY SYST 5 MEDICAL NOHEMI IMAGING IMAGING INCLUDING ASS GALLBLADD ER O2 CONC 1 E1390 DAREK O'IRA DEL PORT 5 HOME MOL 85%/>02 MEDICAL CONC AT [facility] FLW RATE PRTBLE E0431 DAREK O'IRA GASEOUS 5 HOME MOL O2 SYS MEDICAL RENT; EQUIPME FLWMTR HUMIDFR&M ASK XTRNL ECG 73234 ROSS ROSS & 48 HR 5 [facility] RECORDING INC INC XTRNL ECG 05392 ROSS ELDER 5 [facility] S RHYTHM P W/I&R UP TO 48 HRS ECG 81717 ROSS ELDER ROUTINE 5 [facility] W/LEAST P 12 LDS I&R ONLY ECHO 91065 ROSS HAWKINS TTHRC R-T 5 [facility] ER HOSP 2D INC INC W/WOM-MOD E COMPL SPEC&COLR D INSJ 93071 ROSS GILES NON-NDWEL [address] [facility] BLADDER P CATHETER RADIOLOGI 51713 [facility] ALL C EXAM 5 MEDICAL CHEST 2 IMAGING VIEWS ASS FRONTAL&[place] [address] [place]IRD ALL TRACT UPR 5 MEDICAL W/SM INT IMAGING W/MULT ASS SERIAL IMAGES RADIOLOGI 86586 [place] ALL C 5 MEDICAL EXAMINATI IMAGING ON CHEST ASS SINGLE VIEW FRONTAL THERAPEUT 38751 ROSS HAWKINS IC 5 [facility] INJECTION INC INC IV PUSH EACH NEW DRUG PHRM Q0513 YOUR YOUR DISPENSIN 5 PHARMACY PHARMACY [employer] INHALATIO N RX; PER 30 DAYS ALBUTEROL J7620 YOUR YOUR TO 2.5 5 PHARMACY PHARMACY [employer] IPRATROPI UM BROM TO 0.5 MG PRTBLE E0431 DAREK OSWALD GASEOUS 5 HOME HOME O2 SYS MEDICAL MEDICAL RENT; EQUIPME EQUIPME FLWPAR HUMIDFR&M ASK O2 CONC 1 E1390 DAREK OSWALD DEL PORT 5 HOME HOME 85%/>02 MEDICAL MEDICAL CONC AT EQUIPME EQUIPME PRSC FLW RATE DIAGNOSTI G0206 ROSS HAWKINS C 5 [facility] MAMMOGRAP INC INC HY INCL CAD WHEN PERF; UNI US BREAST 45661 ROSS HAWKINS UNI REAL 5 [facility] TIME INC INC WITH IMAGE COMPLETE US BREAST 71810 [facility] UNI REAL 5 MEDICAL MEDICAL TIME IMAGING IMAGING WITH ASS ASS IMAGE LIMITED COLONOSCO 56389 [facility] JACQUI TOD PY 5 PHYSICIAN W/BIOPSY S GROUP SINGLE/MU LTIPLE EGD 32501 [facility] JACQUI TOD TRANSORAL 5 PHYSICIAN BIOPSY S GROUP SINGLE/[place] [address] ROSS HAWKINS INFUSION 5 [facility] THERAPY INC INC PROPHYLAX IS/DX EA HOUR O2 CONC 1 E1390 DAREK OSWALD DEL PORT 5 HOME HOME 85%/>02 MEDICAL MEDICAL CONC AT EQUIPME EQUIPME PRSC FLW RATE PRTBLE E0431 DAREK OSWALD GASEOUS 5 HOME HOME O2 SYS MEDICAL MEDICAL RENT; EQUIPME EQUIPME FLWMTR HUMIDFR&M ASK LALA 26098 ROSS GILES POST-VOID 5 [facility] RESIDUAL P URINE&/BL ADDER CAP PRTBLE E0431 DAREK OSWALD GASEOUS 5 HOME HOME O2 SYS MEDICAL MEDICAL RENT; EQUIPME EQUIPME FLWMTR HUMIDFR&M ASK O2 CONC 1 E1390 DAREK BELTRAN PORT 5 HOME HOME 85%/>02 MEDICAL MEDICAL CONC AT EQUIPME EQUIPME PRSC FLW RATE POLYSOM 95240 BERRYTONY GHOSHDAISY MAR 6/>YRS 5 SLEEP 4/> NEUROSCIE ADDL NCES CENT RERE ATTND POLYSOM 91553 ROSS HAWKINS 6/>YRS 5 [facility] SLEEP 4/> INC INC ADDL RERE ATTND PRTBLE E0431 DAREK OSWALD GASEOUS 5 HOME HOME O2 SYS MEDICAL MEDICAL RENT; EQUIPME EQUIPME FLWMTR HUMIDFR&M ASK O2 CONC 1 E1390 DAREK OSWALD DEL PORT 5 HOME HOME 85%/>02 MEDICAL MEDICAL CONC AT EQUIPME [place] [address] [facility] LAMMARIA L TAYLOR ACTIVTD 5 [facility]ALTH ECG DWNLD MEDICAL W/R&I G </30 DAYS PHRM Q0513 YOUR YOUR DISPENSIN 5 PHARMACY PHARMACY [employer] INHALATIO N RX; PER 30 DAYS ALBUTEROL J7620 YOUR YOUR TO 2.5 5 PHARMACY PHARMACY [employer] IPRATROPI UM BROM TO 0.5 MG PRTBLE E0431 DAREKDONNA RAMIREZRELL GASEOUS 5 HOME HOME O2 SYS MEDICAL MEDICAL RENT; EQUIPME EQUIPME FLWMTR HUMIDFR&M ASK O2 CONC 1 E1390 DAREK BELTRAN PORT 5 HOME HOME 85%/>02 MEDICAL MEDICAL CONC AT EQUIPME EQUIPME PRSC FLW RATE THERAPEUT 55492 ROSS HAWKINS IC 5 [facility] PROPHYLAC INC INC TIC/DX INJECTION SUBQ/IM RADIOLOGI 54061 BALDEV LEMUS C EXAM 5 MEDICAL ELISSA CHEST 2 IMAGING VIEWS ASS FRONTAL&L ATERAL ECG 81156 ROSS VASQUEZ JR ROUTINE 5 [facility] W/LEAST P 12 LDS I&R ONLY PRTBLE E0431 DAREKDONNA RAMIREZRELL GASEOUS 5 HOME HOME O2 SYS MEDICAL MEDICAL RENT; EQUIPME EQUIPME FLWMTR HUMIDFR&M ASK O2 CONC 1 E1390 DAREK BELTRAN PORT 5 HOME HOME 85%/>02 MEDICAL MEDICAL CONC AT EQUIPME EQUIPME PRSC FLW RATE PULM G0424 ROSS HAWKINS REHAB 4 [facility] INCL EXER INC INC 1 HR PER SESS TO 2 PER DAY PULM G0424 ROSS HAWKINS REHAB 4 [facility] INCL EXER INC INC 1 HR PER SESS TO 2 PER DAY PULM G0424 ROSS HAWKINS REHAB 4 [facility] INCL EXER INC INC 1 HR PER SESS TO 2 PER DAY DUP-SCAN 75426 ROSS HAWKINS LXTR 4 [facility] ART/ARTL INC INC BPGS COMPL BI STUDY XTRNL ECG 67488 ROSS HAWKINS & 48 HR 4 [facility] RECORDING INC INC EXTERNAL 69521 ROSS HAWKINS ECG 4 [facility] SCANNING INC INC ANALYSIS REPORT NON-INVAS 19179 BALDEV GALLO CLAUDE 4 MEDICAL NOHEMI PHYSIOLOG IMAGING IC STUDY ASS EXTREMITY 3 LEVLS PRTBLE E0431 DAREK DAREK GASEOUS 4 HOME HOME O2 SYS MEDICAL MEDICAL RENT; EQUIPME EQUIPME FLWMTR HUMIDFR&M ASK O2 CONC 1 E1390 DAREK OSWALD DEL PORT 4 HOME HOME 85%/>02 MEDICAL MEDICAL CONC AT EQUIPME EQUIPME [facility] FLW RATE ALBUTEROL J7620 YOUR YOUR TO 2.5 4 PHARMACY PHARMACY [employer] IPRATROPI UM BROM TO 0.5 MG PHRM Q0513 YOUR YOUR DISPENSIN 4 PHARMACY PHARMACY [employer] INHALATIO N RX; PER [address] THORAX 28732 [facility] W/O 4 [facility] CONTRAST INC INC MATERIAL PRTBLE E0431 DAREK OSWALD GASEOUS 4 HOME HOME O2 [facility]; EQUIPME EQUIPME FLWMTR HUMIDFR&M ASK O2 CONC 1 E1390 DAREK OSWALD DEL [place] 4 HOME HOME 85%/>02 MEDICAL MEDICAL CONC AT EQUIPME EQUIPME [facility] FLW RATE ALBUTEROL J7620 YOUR YOUR TO 2.5 4 PHARMACY PHARMACY [employer] IPRATROPI UM BROM TO 0.5 MG PHRM Q0513 YOUR YOUR DISPENSIN 4 PHARMACY PHARMACY [employer] INHALATIO N RX; PER 30 DAYS PRTBLE E0431 DAREK OSWALD GASEOUS 4 HOME HOME O2 [facility]; EQUIPME EQUIPME FLWMTR HUMIDFR&M ASK O2 CONC 1 E1390 DAREK OSWALD DEL PORT 4 HOME HOME 85%/>02 MEDICAL MEDICAL CONC AT [facility] FL[facility] INJECTION J0696 [facility] 4 PHYSICIAN PHYSICIAN CEFTRIAXO S GROUP S GROUP NE SODIUM PER 250 MG THERAPEUT 52698 [facility] IC 4 PHYSICIAN PHYSICIAN PROPHYLAC S GROUP S GROUP TIC/DX INJECTION SUBQ/IM THERAPEUT 66245 [facility] IC 4 PHYSICIAN PHYSICIAN PROPHYLAC S GROUP S GROUP TIC/DX INJECTION SUBQ/IM INJECTION J1040 [facility] 4 PHYSICIAN PHYSICIAN METHYLPRE S GROUP S GROUP DNISOLONE ACETATE 80 MG INJECTION J0696 [facility] 4 PHYSICIAN PHYSICIAN CEFTRIAXO S GROUP S GROUP NE SODIUM PER 250 MG ECG 16914 ROSS VASQUEZ JR ROUTINE 4 [facility] ECG HOSPITAL W/LEAST P 12 LDS I&R ONLY PRTBLE E0431 DAREK OSWALD GASEOUS 4 HOME HOME O2 [facility]; EQUIPME EQUIPME FLWMTR HUMIDFR&M ASK O2 CONC 1 E1390 DAREK OSWALD DEL [place] 4 HOME HOME 85%/>02 MEDICAL MEDICAL CONC AT EQUIPME EQUIPME [facility] FLW RATE RADIOLOGI 69516 [place] C EXAM 4 MEDICAL NOHEMI CHEST 2 IMAGING VIEWS ASS FRONTAL&L ATERAL DUP-SCAN 84224 [facility] HAWKINS XTR VEINS 4 [facility] INC INC UNILATERA L/LIMITED STUDY ECG 47010 ALFARIS ALFARIS ROUTINE 4 [facility] ECG W/LEAST 12 LDS I&R ONLY BRNCDILAT 47656 JERROD ELDER RSPSE 4 IZA IZA SPMTRY PRE&POST- BRNCDILAT ADMN GAS 69736 ROS[facility] HAWKINS DILUT/WAS 4 [facility] HOUT LUNG INC INC VOL W/WO DISTRIB VENT&V GAS 11948 JERROD BESSON DILUT/WAS 4 IZA IZA HOUT LUNG VOL W/WO DISTRIB VENT&[place] [address] BESSON BESSON DIFFUSING 4 IZA IZA CAPACITY APPL 08348 [facility] HAWKINS MODALITY 4 [facility] 1/> AREAS INC INC ULTRASOUN D EA 15 MIN APPL 32774 [facility] HAWK[facility] MODALITY 4 [facility] 1/> AREAS INC INC IONTOPHOR ESIS EA 15 MIN THERAPEUT 63233 [facility] HAWKINS IC PX 1/> 4 [facility] AREAS INC INC EACH 15 MIN EXERCISES E-STIM G0283 [facility]WK[facility] 1/> AREAS 4 [facility] OTH THAN INC INC WND CARE PART TX PLAN E-STIM G0283 [facility] HAWKINS 1/> AREAS 4 [facility] OTH THAN INC INC WND CARE PART TX PLAN APPL 60710 ROSS HWAKINS MODALITY 4 [facility] 1/> AREAS INC INC IONTOPHOR ESIS EA 15 MIN PHYSICAL 45565 ROS[facility] HAWKINS THERAPY 4 [facility] EVALUATIO INC INC N APPL 18664 ROS[facility] HAWKINS MODALITY 4 [facility] 1/> AREAS INC INC ULTRASOUN D EA 15 MIN ESOPHAGOS 09799 [facility] COPY 4 FRANKIE FRANKIE FLEXIBLE GUIDE WIRE DILATION LARGSC 62354 [facility] EXC 4 FRANKIE FRANKIE OVI&/STRP G CORDS/EPI GL MCRSCP/TL SCP ECG 23417 [facility] ROUTINE 4 [facility] ECG INC INC W/LEAST 12 LDS TRCG ONLY W/O I&R RADIOLOGI 11967 [facility] HAWK[facility] C EXAM 4 [facility] CHEST 2 INC INC VIEWS FRONTAL&L ATERAL RADEX 63276 [facility] HAWKINS ESOPHAGUS 4 [facility] INC INC PHRM Q0513 YOUR YOUR DISPENSIN 4 PHARMACY PHARMACY [employer] INHALATIO N RX; PER 30 DAYS ALBUTEROL J7620 YOUR YOUR TO 2.5 4 PHARMACY PHARMACY [employer] IPRATROPI UM BROM TO 0.5 MG ALBUTEROL J7620 YOUR YOUR TO 2.5 4 PHARMACY PHARMACY [employer] IPRATROPI UM BROM TO 0.5 MG PHRM Q0513 YOUR YOUR DISPENSIN 4 PHARMACY PHARMACY [employer] INHALATIO N RX; PER 30 DAYS HOSPITAL G0463 [facility]WK[facility] OUTPATIEN 4 [facility] [facility] INC INC VISIT ASSESS & MGMT PT RADIOLOGI 52054 CLEO GALLO C EXAM 3 NOHEMI NOHEMI CHEST 2 VIEWS FRONTAL&L ATERAL ECG 24018 BREEZY TIJERINA ROUTINE 3 MATY MATY ECG W/LEAST 12 LDS I&R ONLY NONCOVERE A9270 [facility] D ITEM OR 3 [facility] HOSPITAL SERVICE THER 54145 ROSS HAWKINS PROPH/DX 3 [facility] NJX IV INC INC PUSH SINGLE/1S T SBST/DRUG PRESSURIZ 21218 ROSS HAWKINS ED/NONPRE 3 [facility] SSURIZED INC INC INHALATIO N TREATMENT ECG 71689 BREEZY CARBALLOEY ROUTINE 3 MATY MATY ECG W/LEAST 12 LDS I&R ONLY RHYTHM 62289 ROSS HAWKINS ECG 1-3 3 [facility] LEADS INC INC TRACING ONLY W/O I&R ECG 48689 ROSS HAWKINS ROUTINE 3 [facility] ECG INC INC W/LEAST 12 LDS TRCG ONLY W/O I&R RADIOLOGI 11813 ROSS HAWKINS C 3 [facility] EXAMINATI INC INC ON CHEST SINGLE VIEW FRONTAL PHRM Q0513 YOUR YOUR DISPENSIN 3 PHARMACY PHARMACY G FEE [employer] INHALATIO N RX; PER 30 DAYS ALBUTEROL J7620 YOUR YOUR TO 2.5 3 PHARMACY PHARMACY MG & [employer] IPRATROPI UM BROM TO 0.5 MG DUP-SCAN 19358 ROSS HAWKINS LXTR 3 [facility] ART/ARTL INC INC BPGS COMPL BI STUDY SPMTRY 19910 ROSS ROSS W/VC 3 [facility] EXPIRATOR INC INC Y JG W/WO MXML VOL VNTJ RADEX HIP 70365 CLEO CLEO 3 NOHEMI NOHEMI UNILATERA L COMPLETE MINIMUM 2 VIEWS RADEX 77246 CLEO CLEO SPINE 3 NOHEMI NOHEMI LUMBOSACR AL MINIMUM [address] THORAX 28160 ROSS HAWKINS W/O 3 [facility] CONTRAST INC INC MATERIAL 3D 89268 CLEO CLEO RENDERING 3 NOHEMI NOHEMI W/INTERP& POSTPROC DIFF WORK STATION ECG 26627 OSMAR PRASAD ROUTINE 3 III IRAIDA III IRAIDA ECG W/LEAST 12 LDS I&R ONLY RADIOLOGI 76837 CLEO CLEO C 3 NOHEMI NOHEMI [place]AMINATI [place] [address] CLEO CLEO HEAD/BRAI 3 NOHEMI NOHE[place] [address] CLEO CLEO RETROPERI 3 NOHEMI NOHEMI TONEAL REAL TIME W/IMAGE COMPLETE SBSQ 92449 JERROD ELDER NURSING 3 IZA IZA FACILITY CARE/DAY E/M STABLE 10 MIN SBSQ 55309 JERROD SPARROWSON NURSING 3 IZA IZA FACILITY CARE/DAY E/M STABLE 10 MIN RADIOLOGI 57055 CLEO CLEO C EXAM 3 NOHEMI NOHEMI CHEST 2 VIEWS FRONTAL&L ATERAL RADEX 73837 CLEO CLEO ABDOMEN 1 3 NOHEMI NOHEMI ANTEROPOS TERIOR VIEW SBSQ 69797 JERROD ELDER NURSING 3 IZA IZA FACILITY CARE/DAY E/M STABLE 10 MIN US SOFT 14014 CLEO CLEO TISSUE 3 NOHEMI NOHEMI HEAD & [place] [address] CLEO CLEO ABDOMINAL 3 NOHEMI NOHEMI REAL TIME W/IMAGE DOCUMENTA TION RADIOLOGI 05206 CLEO CLEO C EXAM 3 NOHEMI NOHEMI CHEST 2 VIEWS FRONTAL&L ATERAL ECHO 61992 MCKEMIE MCKEMIE TTHRC R-T 3 JR IRAIDA JR IRAIDA 2D W/WOM-MOD E COMPL SPEC&COLR D RADIOLOGI 68056 ROSS HAWKINS C EXAM 3 [facility] CHEST 2 INC INC VIEWS FRONTAL&L ATERAL ECG 41819 JERROD ELDER ROUTINE 3 IZA IZA ECG W/LEAST 12 LDS W/I&R RADIOLOGI 53545 CORRIE CORRIE C 3 RHO RHO EXAMINATI ON CHEST SINGLE VIEW FRONTAL RADIOLOGI 90679 SAMSON SAMSON C 3 TIFFANIE TIFFANIE EXAMINATI ON CHEST SINGLE VIEW FRONTAL RADIOLOGI 85718 CORRIE CORRIE C 3 RHO RHO EXAMINATI ON CHEST SINGLE VIEW FRONTAL CT THORAX 80580 CLEO CLEO W/O 3 NOHEMI NOHEMI CONTRAST MATERIAL ECHO 07989 MERLENE MUB MERLENE MUB TTHRC R-T 3 2D W/WOM-MOD E COMPL SPEC&COLR D ECG 85067 JERONIMO DON ROUTINE 3 ECG W/LEAST 12 LDS I&R ONLY INTUBATIO 59569 JERONIMO DON N 3 ENDOTRACH EAL EMERGENCY PROCEDURE CRITICAL 86239 MOAMMAR MOAMMAR CARE 3 NASIMA NASIMA ILL/INJUR ED PATIENT INIT 30-74 MIN CRITICAL 93452 JERONIMO DON CARE 3 ILL/INJUR ED PATIENT ADDL 30 MIN ECHO 72230 ANJUR-REANNA ANJUR-REANNA TTHRC R-T 3 ALI GOMEZ ALI GOMEZ 2D W/WOM-MOD E COMPL SPEC&COLR D ECG 84071 ANJUR-REANNA ANJUR-REANNA ROUTINE 3 ALI GOMEZ ALI GOMEZ ECG W/LEAST 12 LDS I&[place] [address] HAJIBRAHI HAJIBRAHI ABDOMEN & 3 M SARAH M SARAH PELVIS W/O CONTRAST MATERIAL RADIOLOGI 68551 LURDES LURDES C 3 ANASTACIA ANASTACIA EXAMINATI ON CHEST SINGLE VIEW FRONTAL ECG 83148 ALBERT IZA ALBERT IZA ROUTINE 3 ECG W/LEAST 12 LDS I&R ONLY ECG 80304 DELIA DELIA ROUTINE 3 MATY MATY ECG W/LEAST 12 LDS I&R ONLY RADIOLOGI 30480 WESTERFIE WESTERFIE C EXAM 3 LD IV A LD IV A CHEST 2 VIEWS FRONTAL&L ATERAL ECG 63217 JERROD SPARROWSON ROUTINE 3 IZA IZA ECG W/LEAST 12 LDS I&R ONLY RADIOLOGI 13126 CLEO CLEO C 3 NOHEMI NOHEMI EXAMINATI ON CHEST SINGLE VIEW FRONTAL ECHO 37638 MCKEMIE MCKEMIE TTHRC R-T 3 JR IRAIDA JR IRAIDA 2D W/WOM-MOD E COMPL SPEC&COLR D ECG 89364 BREEZY TIJERINA ROUTINE 3 MATY MATY ECG W/LEAST 12 LDS I&R ONLY RADIOLOGI 48434 CLEO CLEO C 3 NOHEMI NOHEMI EXAMINATI ON CHEST SINGLE VIEW FRONTAL INTUBATIO 30619 BREEZY TIJERINA N 3 MATY MATY ENDOTRACH EAL EMERGENCY PROCEDURE CONT 9671 ROSS HAWKINS INVASIVE 3 [facility]OS[facility] MECH VENT INC INC < 96 CONSECUTI VE HOURS INSERTION 9604 ROSS HAWKINS OF 3 [facility] ENDOTRACH INC INC EAL TUBE CRITICAL 59409 BREEZY [facility] CARE 3 MATY MATY ILL/INJUR ED PATIENT ADDL 30 MIN CRITICAL 94015 BREEZY [facility] 3 MATY MATY ILL/INJUR ED PATIENT INIT 30-74 MIN ALBUTEROL J7620 YOUR YOUR TO 2.5 3 PHARMACY PHARMACY [employer] IPRATROPI UM BROM TO 0.5 MG PHRM Q0513 YOUR YOUR DISPENSIN 3 PHARMACY PHARMACY G [facility] [employer] INHALATIO N RX; PER 30 DAYS RADEX 37457 CLEO CLEO FOOT 3 NOHEMI NOHEMI COMPLETE MINIMUM 3 VIEWS THERAPEUT 39737 HARPEL HARPEL IC 3 STEFANIE STEFANIE PROPHYLAC TIC/DX INJECTION SUBQ/IM INJECTION J1380 HARPEL HARPEL 3 STEFANIE STEFANIE ESTRADIOL VALERATE UP TO 10 MG INJECTION J1380 HARPEL HARPEL 3 STEFANIE STEFANIE ESTRADIOL VALERATE UP TO 10 MG THERAPEUT 88558 HARPEL HARPEL IC 3 STEFANIE STEFANIE PROPHYLAC TIC/DX INJECTION SUBQ/IM ALBUTEROL J7620 YOUR YOUR TO 2.5 2 PHARMACY PHARMACY MG & I[place]ROP[place] [address] [place] [address] CLEO CLEO ANGIOGRAP 2 NOHEMI NOHEMI HY HEAD W/CONTRAS T/NONCONT RAST SLCTV 04011 FALLUJI FALLUJI CATHJ 1ST 2 MEME MEME 2ND ORD THRC/BRCH /CPHLC BRNCH ECG 69628 ROSS HAWKINS ROUTINE 2 [facility] ECG INC INC W/LEAST 12 LDS TRCG ONLY W/O I&R ANGIOGRAP 09932 FALLUJI FALLUJI HY 2 MEME MEME CERVICOCE REBRAL CATHETER RS&I ANGIOGRAP 72682 FALLUJI FALLUJI HY 2 MEME MEME CAROTID CERVICAL BILATERAL RS&I US SOFT 21199 CLEO CLEO TISSUE 2 NOHEMI NOHEMI HEAD & NECK REAL TIME IMGE DOCM RADIOLOGI 90175 CLEO CLEO C EXAM 2 NOHEMI NOHEMI CHEST 2 VIEWS FRONTAL&L ATERAL COMPUTER- 26437 ROSS HAWKINS AIDED [address] [facility] DETECTION INC INC SCREENING MAMMOGRAP HY COMPREHEN 68176 ROSS HAWKINS SIVE 2 [facility] METABOLIC INC INC PANEL RADEX 67146 CLEO CLEO ESOPHAGUS 2 [place] [address] LARISA PERES RETROPERI 2 EMERGENCY EMERGENCY TONEAL SERVICES SERVICES REAL TIME W/IMAGE LIMITED COLLECTIO 16338 ROSS ROSS N VENOUS 2 [facility] BLOOD INC INC VENIPUNCT URE SCREENING G0202 ROSS HAWKINS 2 [facility] MAMMOGRAP INC INC HY HERNÁN INCL CAD WHEN PERFORMD ALBUTEROL J7620 YOUR YOUR TO 2.5 2 PHARMACY PHARMACY MG & IPRATROPI UM BROM TO 0.5 MG ADMN SET A7003 YOUR YOUR SM VOL 2 PHARMACY PHARMACY NONFILTR PNEUMAT NEBULIZR DISPBL BLOOD 42345 HARPEL HARPEL OCCULT 2 STEFANIE STEFANIE PEROXIDAS E ACTV QUAL FECES [address] THORAX 37531 ROSS HAWKINS W/O 2 [facility] CONTRAST INC INC MATERIAL CT THORAX 21648 CLEO CLEO 2 NOHEMI NOHEMI W/CONTRAS T MATERIAL 3D 03456 CLEO CLEO RENDERING 2 NOHEMI NOHEMI W/INTERP& POSTPROC DIFF WORK STATION ADMN SET A7003 YOUR YOUR SM VOL 2 PHARMACY PHARMACY NONFILTR PNEUMAT NEBULIZR DISPBL ALBUTEROL J7620 YOUR YOUR TO 2.5 2 PHARMACY PHARMACY MG & IPRATROPI UM BROM TO 0.5 MG THERAPEUT 78722 HARPEL HARPEL IC 2 STEFANIE STEFANIE PROPHYLAC TIC/DX INJECTION SUBQ/IM THERAPEUT 17569 HARPEL HARPEL IC 2 STEFANIE STEFANIE PROPHYLAC TIC/DX INJECTION SUBQ/IM THERAPEUT 95530 HARPEL HARPEL IC 2 STEFANIE STEFANIE PROPHYLAC TIC/DX INJECTION SUBQ/IM THERAPEUT 79817 HARPEL HARPEL IC 2 STEFANIE STEFANIE PROPHYLAC TIC/DX INJECTION SUBQ/IM CATH PLMT 72180 FALLUJI FALLUJI L HRT & 2 MEME MEME ARTS W/NJX & ANGIO IMG S&I ALBUTEROL J7620 YOUR YOUR TO 2.5 2 PHARMACY PHARMACY [facility] IPRATROPI UM BROM TO 0.5 MG THERAPEUT 02626 BRIJESH COLEY R IC 2 AZUL LIANG MD PROPHYLAC TIC/DX INJECTION SUBQ/IM E-STIM G0283 ROSS HAWKINS 1/> AREAS 2 [facility] OTH THAN INC INC WND CARE PART TX PLAN SPMTRY 94892 ROSS HAWKINS W/VC 2 [facility] EXPIRATOR INC INC Y JG W/WO MXML VOL VNTJ APPL 87779 ROSS HAWKINS MODALITY 2 [facility] 1/> AREAS INC INC ULTRASOUN D EA 15 MIN APPLICATI 30879 ROSS HAWKINS ON 2 [facility] MODALITY INC INC 1/> AREAS HOT/COLD PACKS APPL 69860 ROSS HAWKINS MODALITY 2 [facility] 1/> AREAS INC INC ULTRASOUN D EA 15 MIN APPLICATI 31737 ROSS HAWKINS ON 2 [facility] MODALITY INC INC 1/> AREAS HOT/COLD PACKS 3D 88426 ROSS HAWKINS RENDERING 2 [facility] INC INC W/INTERP& POSTPROC DIFF WORK STATION CT THORAX 89040 ROSS HAWKINS W/O 2 [facility] CONTRAST INC INC MATERIAL ECHO 51122 ROSS HAWKINS TTHRC R-T 2 [facility] 2D INC INC W/WOM-MOD E COMPL SPEC&COLR D E-STIM G0283 ROSS HAWKINS 1/> AREAS 2 [facility] OTH THAN INC INC WND CARE PART TX PLAN THERAPEUT 66389 AZUL LIANG IC 2 STEFANIE STEFANIE PROPHYLAC TIC/DX INJECTION SUBQ/IM DUPLEX 55395 ROSS HAWKINS SCAN 2 [facility] EXTRACRAN INC INC IAL ART COMPL BI STUDY THERAPEUT 32227 ROSS HAWKINS IC PX 1/> 2 [facility] AREAS INC INC EACH 15 MIN EXERCISES PHYSICAL 69131 ROSS HAWKINS THERAPY 2 [facility] EVALUATIO INC INC N XTRNL ECG 15829 BESSON BESSON 2 IZA IZA CONTINUOU S RHYTHM W/I&R UP TO 48 HRS EXTERNAL 26714 ROSS HAWKINS ECG 2 [facility] SCANNING INC INC ANALYSIS REPORT XTRNL ECG 42909 ROSS HAWKINS & 48 HR 2 [facility] RECORDING INC INC THERAPEUT 79522 BRIJESH COLEY R IC 2 AZUL LIANG MD PROPHYLAC TIC/DX INJECTION SUBQ/IM ALBUTEROL J7620 YOUR YOUR TO 2.5 2 PHARMACY PHARMACY & [facility] IPRATROPI UM BROM TO 0.5 MG AREO MASK A7015 YOUR YOUR USED W/ 2 PHARMACY PHARMACY [facility] ADMN SET A7003 YOUR YOUR SM VOL 2 [facility] NEBUL[facility]R DISPBL INJECTION J1380 BRIJESH LIANG 2 AZUL WATTS ESTRADIOL VALERATE UP TO 10 MG INJECTION J1380 BRIJESH LIANG MD STEFANIE ESTRADIOL VALERATE UP TO [address] THORAX 37866 ROSS HAWKINS W/O 1 [facility] CONTRAST INC INC MATERIAL 3D 34210 ROSS HAWKINS RENDERING 1 [facility] INC INC W/INTERP& POSTPROC DIFF WORK STATION 3D 29042 [facility] CLEO RENDERING 1 MEDICAL NOHEMI W/INTERP IMAGING & ASS POSTPROCE SS SUPERVISI ON MRI [address]1657 [place] CLEO SPINAL 1 MEDICAL NOHEMI CANAL IMAGING LUMBAR ASS W/O CONTRAST MATERIAL ADMN SET A7003 YOUR YOUR SM VOL 1 PHARMACY PHARMACY NONFILTR [employer] PNEUMAT NEBULIZR DISPBL ALBUTEROL J7620 YOUR YOUR TO 2.5 1 PHARMACY PHARMACY [employer] [facility] IPRATROPI UM BROM TO 0.5 MG AREO MASK A7015 YOUR YOUR USED W/ 1 PHARMACY PHARMACY [employer] COMPUTER- 17683 [facility] AIDED 1 MEDICAL MEDICAL DETECTION IMAGING IMAGING DX ASS ASS MAMMOGRAP HY NEBULIZER E0570 DAREK OSWALD WITH 1 HOME HOME [facility]PRESS[facility] MEDICAL MEDICAL R EQUIPME EQUIPME NEBULIZER E0570 DAREK OSWALD WITH 1 HOME [facility] MEDICAL MEDICAL R EQUIPME EQUIPME INSJ 08393 ROSS GILES NON-NDWEL [address] [facility] BLADDER P CATHETER CT THORAX 45213 [place] CLEO W/O 1 MEDICAL NOHEMI CONTRAST IMAGING MATERIAL ASS INJECTION J1380 BRIJESH LIANG 1 AZUL WATTS ESTRADIOL VALERATE UP TO 10 MG 3D 87100 [place] CLEO RENDERING 1 MEDICAL NOHEMI IMAGING W/INTERP& ASS POSTPROC DIFF WORK STATION REPAIR C1771 ROSS HAWKINS DEVICE [address] [facility] URINARY INC INC INCONTINE NCE W/[place] [address] ROSS HAWKINS INFUSION 1 [facility] THERAPY INC INC PROPHYLAX IS/DX EA HOUR ECG 71103 ROSS HAWKINS ROUTINE 1 [facility] ECG INC INC W/LEAST 12 LDS TRCG ONLY W/O I&R ECG 94272 ROSS ELDER ROUTINE 1 [facility] W/LEAST P 12 LDS I&R ONLY URNLS DIP 31830 ROSS HAWKINS 1 [facility] STICK/TAB INC INC LET REAGENT AUTO MICROSCOP Y ANES 40953 [facility] 1 ANESTH MARIJA TONEAL OF THE LWR ABD BLUE W/URINARY TRACT NOS SLING 46467 ROSS HAWKINS OPERATION 1 [facility] STRESS INC INC INCONTINE NCE PRESSURIZ 70884 ROSS HAWKINS ED/NONPRE 1 [facility] SSURIZED [place] [address] ROSS HAWKINS INFUSION 1 [facility] THERAPY/P INC INC ROPHYLAXI S /DX 1ST TO 1 HR NEBULIZER E0570 DAREK OSWALD WITH 1 HOME HOME [facility] MEDICAL MEDICAL R EQUIPME EQUIPME BLOOD 99242 ROSS HAWKINS COUNT 1 [facility] COMPLETE INC INC AUTO&AUTO DIFRNTL WBC COLLECTIO 99401 ROSS HAWKINS N VENOUS 1 [facility] BLOOD INC INC VENIPUNCT URE COMPREHEN 81420 ROSS HAWKINS SIVE 1 [facility] METABOLIC INC INC PANEL LIPID 85387 ROSS HAWKINS PANEL 1 [facility] INC INC BASIC 68830 ROSS HAWKINS METABOLIC 1 [facility] PANEL INC INC CALCIUM TOTAL ADMN SET A7003 YOUR YOUR SM VOL 1 [facility] PNE[facility] NEBUL[facility] DISPBL PHRM Q0513 YOUR YOUR DISPENSIN 1 PHARMACY PHARMACY G FEE [facility] INHALATIO N RX; PER 30 DAYS ALBUTEROL J7620 YOUR YOUR TO 2.5 1 PHARMACY PHARMACY & [facility] IPRATROPI UM BROM TO 0.5 MG INJECTION J1380 BRIJESH LIANG 1 AZUL PALMER STEFANIE ESTRADIOL VALERATE UP TO 10 MG NEBULIZER E0570 DAREK OSWALD WITH 1 HOME [facility]ICAL R EQUIPME EQUIPME URNLS DIP 60051 ROSS HAWKINS 1 [facility] STICK/TAB INC INC LET RGNT NON-AUTO W/O MICRSCP NEBULIZER E0570 DAREK OSWALD WITH 1 HOME [facility]ICAL MEDICAL R EQUIPME EQUIPME ADMN SET A7003 YOUR YOUR SM VOL 1 PHARMACY PHARMACY [facility] PNEUMAT NEBULIZR DISPBL AREO MASK A7015 YOUR YOUR USED W/ 1 PHARMACY PHARMACY [facility] 25 04893 ROSS HAWKINS HYDROXY 1 [facility] INCLUDES INC INC FRACTIONS IF PERFORMED COLLECTIO 35278 ROSS HAWKINS N VENOUS 1 [facility] BLOOD INC INC VENIPUNCT URE CALCIUM 81466 ROSS HAWKINS TOTAL 1 [facility] INC INC CALCIUM 77728 ROSS HAWKINS IONIZED 1 [facility] [place] [address] ROSS HAWKINS THYROXINE 1 [facility] [place] [address] ROSS HAWKINS THYROID 1 [facility] STIMULATI INC INC NG HORMONE TSH NEBULIZER E0570 DAREK OSWALD WITH 1 HOME MED HOME MED COMPRESSO EQUIP. L EQUIP. L R INJECTION J1380 BRIJESH LIANG 1 AZUL PALMER STEFANIE ESTRADIOL VALERATE UP TO 10 MG ALBUTEROL J7620 YOUR YOUR TO 2.5 1 PHARMACY PHARMACY [facility] [employer] [facility] IPRATROPI UM BROM TO 0.5 MG ADMN SET A7003 YOUR YOUR SM VOL 1 PHARMACY PHARMACY NONFILTR [facility] PNEUMAT NEBULIZR DISPBL PHRM Q0513 YOUR YOUR DISPENSIN 1 PHARMACY PHARMACY G [facility] [employer] [facility] INHALATIO N RX; PER 30 DAYS NEBULIZER E0570 DAREK OSWALD WITH 1 HOME MED HOME MED COMPRESSO EQUIP. L EQUIP. L R INJECTION J1380 BRIJESH LIANG 1 AZUL PALMER STEFANIE ESTRADIOL VALERATE UP TO 10 MG NEBULIZER E0570 DAREK OSWALD WITH 1 HOME MED HOME MED COMPRESSO EQUIP. L EQUIP. L R INJECTION J1380 BRIJESH LIANG 1 AZUL PALMER STEFANIE ESTRADIOL VALERATE UP TO 10 MG CREATININ 33952 ROSS ROSS E BLOOD [address] [facility] INC INC CT THORAX [address]97 [place] CLEO 1 MEDICAL NOHEMI W/CONTRAS IMAGING T ASS MATERIAL COLLECTIO 90788 ROSS ROSS N VENOUS [address] [facility] BLOOD INC INC VENIPUNCT URE CALCIUM 04885 ROSS HAWKINS TOTAL [address] [facility] [place] [address] ROSS HAWKINS UREA 1 [facility] NITROGEN INC INC QUANTITAT CLAUDE 3D 57302 [place] CLEO RENDERING 1 MEDICAL NOHEMI IMAGING W/INTERP& ASS POSTPROC DIFF WORK STATION CALCIUM 82587 ROSS HAWKINS IONIZED 1 [facility] INC INC NEBULIZER E0570 DAREK OSWALD WITH 1 HOME MED HOME MED COMPRESSO EQUIP. L EQUIP. L R THERAPEUT 39096 BRIJESH LIANG IC 1 AZUL WATTS PROPHYLAC TIC/DX INJECTION SUBQ/IM INJECTION J1380 BRIJESH LIANG 1 AZUL WATTS ESTRADIOL VALERATE UP TO 10 MG CALCIUM 33620 ROSS ROSS TOTAL [address] [facility] [place] [address] ROSS ROSS FREE 1 [facility] THYROXINE INC INC COLLECTIO 47119 ROSS ROSS N VENOUS 1 [facility]LO[facility] [place] [place] [address] ROSS HAWKINS THYROID 1 [facility] STIMULATI INC INC NG HORMONE TSH ALBUTEROL J7620 YOUR YOUR TO 2.5 1 PHARMACY PHARMACY [facility] IPRATROPI UM BROM TO 0.5 MG ADMN SET A7003 YOUR YOUR SM VOL 1 PHARMACY PHARMACY NONFILTR [facility] PNEUMAT NEBULIZR DISPBL PHRM Q0513 YOUR YOUR DISPENSIN 1 PHARMACY PHARMACY G [facility] [employer] INHALATIO N RX; PER 30 DAYS NEBULIZER E0570 DAREK OSWALD WITH 1 HOME MED HOME MED COMPRESSO EQUIP. L EQUIP. L R HOSPITAL 8[address] [facility] DISCHARGE 1 DON DON DAY MANAGEMEN T 30 MIN/< INITIAL 98588 [facility] 1 DON DON CARE/DAY 50 MINUTES ECG 99147 ROSS ELDER ROUTINE 1 [facility] W/LEAST P 12 LDS I&R ONLY ECG 78704 LARISA TIJERINA ROUTINE 1 EMERGENCY MATY ECG SERVICES W/LEAST 12 LDS I&R ONLY INJECTION J1380 BRIJESH LIANG 1 AZUL WATTS ESTRADIOL VALERATE UP TO 10 MG THERAPEUT 96911 BRIJESH LIANG IC 1 AZUL WATTS PROPHYLAC TIC/DX INJECTION SUBQ/IM NEBULIZER E0570 DAREK OSWALD WITH 1 HOME MED HOME MED COMPRESSO EQUIP. L EQUIP. L R US BONE 95625 BRIJESH LIANG DENSITY 0 AZUL WATTS LALA & INTERP PERIPH ANY METHO INJECTION J0970 BRIJESH LIANG 0 AZUL WATTS ESTRADIOL VALERATE UP TO [address] [place] [address] ROSS HAWKINS FREE 0 [facility] THYROXINE INC INC COLLECTIO 03465 ROSS HAWKINS N VENOUS [address] [facility] BLOOD INC INC VENIPUNCT URE CALCIUM 33768 ROSS HAWKINS IONIZED 0 [facility] INC INC US SOFT 22795 [place] CLEO TISSUE 0 MEDICAL NOHEMI HEAD & IMAGING [place] [address] ROSS HAWKINS THYROID 0 [facility] STIMULATI INC INC NG HORMONE TSH NEBULIZER E0570 DAREK OSWALD WITH 0 HOME MED HOME MED COMPRESSO EQUIP. L EQUIP. L R CYTP C/V 11944 BIO BIO AUTO THIN 0 REFERNCE REFERNCE LYR LABORATOR LABORATOR PREPJ SCR IES IES MNL RESCR PHYS SCREENING G0202 [place] CLEO 0 MEDICAL NOHEMI MAMMOGRAP IMAGING HY HERNÁN ASS INCL CAD WHEN PERFORMD COMPUTER- 71719 [place] CLEO AIDED 0 MEDICAL NOHEMI DETECTION IMAGING ASS SCREENING MAMMOGRAP HY IADNA 10387 BIO BIO NEISSERIA 0 REFERNCE REFERNCE LABORATOR LABORATOR GONORRHOE IES IES AE AMPLIFIED PROBE TQ IADNA 54209 BIO BIO CHLAMYDIA 0 REFERNCE REFERNCE LABORATOR LABORATOR TRACHOMAT IES IES IS AMPLIFIED PROBE TQ 3D 10377 ROSS HAWKINS RENDERING 0 [facility] INC INC W/INTERP& [place] [address] ROSS HAWKINS THYROID 0 [facility] STIMULATI [place] [address] ROSS HAWKINS FREE 0 [facility] THYROXINE INC INC CALCIUM 95301 ROSS HAWKINS TOTAL 0 [facility] INC INC DUPLEX 44613 [place] CLEO SCAN 0 MEDICAL NOHEMI EXTRACRAN IMAGING IAL ART ASS COMPL BI STUDY BLOOD 34314 ROSS HAWKINS COUNT 0 [facility] COMPLETE INC INC AUTO&AUTO DIFRNTL WBC COLLECTIO 68496 ROSS HAWKINS N VENOUS 0 [facility] BLOOD INC INC VENIPUNCT URE CT THORAX 31167 [place] CLEO W/O 0 MEDICAL NOHEMI CONTRAST IMAGING MATERIAL ASS XTRNL ECG 00971 ROSS HAWKINS & 48 HR 0 [facility] RECORDING INC INC ALBUTEROL [id number] YOUR YOUR TO 2.5 0 PHARMACY PHARMACY [facility] IPRATROPI UM BROM TO 0.5 MG ADMN SET [id number] DAREK OSWALD SM VOL 0 HOME MED HOME MED NONFILTR EQUIP. L EQUIP. L PNEUMAT NEBULIZR DISPBL COLLECTIO 09404 ROSS HAWKINS N VENOUS 0 [facility] BLOOD INC INC VENIPUNCT URE PHARM [id number] YOUR YOUR DISPEN 0 PHARMACY PHARMACY [facility] RX; INITIAL 30-DAY SUPPLY NEBULIZER E0570 DAREK OSWALD WITH 0 HOME MED HOME MED COMPRESSO [place] [id number] ROSS HAWKINS THYROID 0 [facility] ER [facility]OSP STIMULATI INC INC NG HORMONE TSH INJECTION J0970 BRIJESH LIANG 0 [facility] [place] ESTRADIOL VALERATE UP TO 40 MG [facility] [address]24 [facility] DISCHARGE 0 DON DON DAY MANAGEMEN T 30 MIN/< SBSQ 14543 [facility] 0 DON DON CARE/DAY 25 MINUTES SBSQ [id number] [facility] 0 DON DON CARE/DAY 25 MINUTES INITIAL 93878 [facility] 0 DON DON CARE/DAY 50 MINUTES RHYTHM 37542 LARISA AGUILAR BAB ECG 1-3 0 [facility] INTERPRET ATION & REPRT ON ECG [id number] ROSS VASQUEZ DWI ROUTINE 0 [facility] W/LEAST P 12 LDS I&R ONLY INJECTION J0970 BRIJESH LIANG 0 [place] [place] STEFANIE ESTRADIOL VALERATE UP TO 40 MG NON-INVAS 21432 [place] CLAUDE 0 MEDICAL NOHEMI PHYSIOLOG IMAGING IC STUDY ASS EXTREMITY 3 LEVLS N-INVAS 83386 ROSS HAWKINS PHYSIOLOG 0 [facility] IC STD INC INC LXTR ART COMPL BI ECHO 12949 [facility] TTHRC R-T 0 PHYSICIAN MEME 2D S GROUP W/WOM-MOD E COMPL SPEC&COLR D INJECTION J0970 BRIJESH LIANG 0 [place] ESTRADIOL VALERATE UP [place] [address] [place] [id number] ROSS HAWKINS INFUSION 0 [facility] THERAPY/P INC INC ROPHYLAXI S /DX 1ST TO 1 HR CYSTO 31433 [facility] CALIBRATI 0 LTH SONDRA ON DILAT UROLOGY URTL PSC STRIX/IZA NOSIS ANES 72086 [facility] SMITH GLE TRANSURET 0 ANESTH HRAL OF THE W/URETHRO BLUE CYSTOSCOP Y NOS DILAT 21339 ROSS HAWKINS FEMALE [address] [facility] URETHRA INC INC GENERAL/[place] [address] ROSS HAWKINS INFUSION 0 [facility] THERAPY INC INC PROPHYLAX IS/DX EA HOUR INJECTION J0970 BRIJESH LIANG, 0 [place] ESTRADIOL VALERATE UP TO 40 MG URINALYSI 60954 BRIJESH LIANG, S 0 [place] MICROSCOP IC ONLY INJECTION J0970 BRIJESH LIANG 0 [place] [place] STEFANIE ESTRADIOL VALERATE UP TO 40 MG COLONOSCO 28041 Perla PHILLIPS PY FLX DX 0 JACQUELINE GONZALEZ W/ERIN PALMER PSC SPEC WHEN PFRMD URINALYSI 61447 BRIJESH LIANG, S 0 [place] MICROSCOP IC ONLY INJECTION J0970 BRIJESH LIANG, 0 [place] ESTRADIOL VALERATE UP TO [address] THORAX 14042 BALDEV GALLO, W/O 0 MEDICAL CIRA CONTRAST IMAGING MATERIAL ASSOCIATE S 3D 91216 [place], RENDERING 0 MEDICAL CIRA IMAGING W/INTERP& ASSOCIATE POSTPROC S DIFF WORK STATION PULMONARY 77847 RODOLFO NOEL STRESS 0 [facility] TESTING SERV SIMPLE FOUNDATIO FUNCTIONA 44483 ROSS HAWKINS L 0 [facility] RESIDUAL INC INC CAPACITY OR RESIDUAL VOLUME DETER 35673 ROSS HAWKINS MALDISTRI 0 [facility] BJ OF INC INC INSPIRED GAS N WSHOT CURVE DETER 52207 ROSS HAWKINS AIRWY 0 [facility] CLOSING INC INC VOL 1 BRTH TSTS BRNCDILAT 13363 ROSS HAWKINS RSPSE 0 [facility] SPMTRY INC INC PRE&POST- BRNCDILAT ADMN CARBON 37381 RODOLFO NOEL MONOXIDE 0 [facility] DIFFW/CAP SERV FOUNDATIO PLETHYSMO 14747 RODOLFO NOEL GRAPY TOT 0 [facility] BDY I&R SERV ONLY FOUNDATIO SIMPLE 60592 BRIJESH LIANG UROFLOMET 0 [place] RY COMPLX 14264 BRIJESH LIANG CYSTOMETR 0 [place] O W/VOID PRESS & URETHRAL PROFIL URINLS 71175 BRIJESH LIANG, DIP 0 [place] STICK/TAB LET REAGNT NON-AUTO MICRSCPY URINLS 49453 BRIJESH LIANG, DIP 0 [place] STICK/TAB LET REAGNT NON-AUTO MICRSCPY INJECTION J0970 BRIJESH LIANG, 0 [place] ESTRADIOL VALERATE UP TO 40 MG INJECTION J0970 BRIJESH LIANG, 0 [place] ESTRADIOL VALERATE UP TO 40 MG RADIOLOGI 75241 Perla MOSLEY EXAM 0 MEDICAL CIRA CHEST 2 IMAGING VIEWS ASSOCIATE FRONTAL&L S ATERAL ECG 99500 ROSS JERROD, ROUTINE 0 [facility] W/LEAST PROF SERV 12 LDS I&R ONLY ECG 35170 ROSS HAWKINS ROUTINE 0 [facility] ECG INC INC W/LEAST 12 LDS TRCG ONLY W/O I&R PRESSURIZ 32044 ROSS ROSS ED/NONPRE 0 [facility] SSURIZED INC INC INHALATIO N TREATMENT INJECTION J0970 BRIJESH LIANG, 9 [place]UL [place] ESTRADIOL VALERATE UP TO 40 MG INJECTION J0970 BRIJESH LIANG 9 [place] ESTRADIOL VALERATE UP TO 40 MG CYTP C/V 04910 [facility] AUTO THIN 9 [facility] LYR PREPJ SCR MNL RESCR PHYS IADNA 79319 [facility] CHLAMYDIA 9 [facility] TRACHOMAT IS AMPLIFIED PROBE TQ IADNA 99082 [facility] NEISSERIA 9 [facility] GONORRHOE AE AMPLIFIED PROBE TQ SCREENING 89488 ROSS HAWKINS 9 [facility] MAMMOGRAP INC INC HY BILATERAL COMPUTER- 19854 ROSS HAWKINS AIDED 9 [facility] DETECTION INC INC SCREENING MAMMOGRAP HY INJECTION J0970 Colt GRANT MD ESTRADIOL VALERATE UP TO 40 MG I SI&R 75253 [facility] KWESI, F/NJX PX 9 PHYSICIAN NADEEM [place] DURING S GROUP C-CATHJ VENTR&/AT R ANGRPH I SI&R 76281 [facility] KWESI, F/NJX PX 9 PHYSICIAN NADEEM [place] DURING S GROUP C-CATHJ PULM&/OR SELECT INJECTION 63627 [facility] FALLUDAYO, CARDIAC 9 PHYSICIAN NADEEM [place] CATHJ L S GROUP VENTR/L ATR ANGIOGRAP H L HRT 29547 [facility] KWESI, CATHETERI 9 PHYSICIAN NADEEM GRTION S GROUP [place] [address] [facility] PRASHANTHUDAYO, C-CATHJ 9 PHYSICIAN NADEEM [place] F/[place] [address] [facility] PRASHANTHUDAYO, C-CATHJ 9 PHYSICIAN NADEEM [place] F/AORTOGR S GROUP APY ECG 46359 [place], ROUTINE 9 LEE Olguin C ECG CLINIC W/LEAST PSC 12 LDS I&R ONLY RADIOLOGI 77569 Perla MOSLEY EXAM 9 MEDICAL CASTOR CHEST 2 IMAGING VIEWS ASSOCIATE FRONTAL&L S ATERAL RADIOLOGI 71675 ROSS HAWKINS C EXAM 9 [facility]OS[facility] CHEST 2 INC INC VIEWS FRONTAL&L ATERAL BLOOD 37062 ROSS HAWKINS COUNT 9 [facility] COMPLETE INC INC AUTO&AUTO DIFRNTL WBC COLLECTIO 87229 ROSS HAWKINS N VENOUS 9 [facility] BLOOD INC INC VENIPUNCT URE COMPREHEN 51537 ROSS HAWKINS SIVE 9 [facility]OS[facility] METABOLIC INC INC PANEL INJECTION J0970 BRIJESH LIANG, 9 [place] ESTRADIOL VALERATE UP [place] 40 [place] [address] ROSS HAWKINS INFUSION 9 [facility] THERAPY/P INC INC ROPHYLAXI S /DX 1ST TO 1 HR ECHO 85143 ROSS HAWKINS TRANSESOP 9 [facility]OS[facility] HAG R-T INC INC 2D W/PRB IMG ACQUISJ I&R DOP 41523 ROSS HAWKINS ECHOCARD 9 [facility] COLOR [place] [address] ROSS HAWKINS INFUSION 9 [facility] THERAPY INC INC PROPHYLAX IS/DX EA HOUR 3D 44131 AYO HARRINGTON 9 MEDICAL [place] P IMAGING W/INTERP& ASSOCIATE POSTPROC S DIFF WORK STATION CT THORAX 98664 [place] KAZ, 9 MEDICAL [place]OJANA P W/CONTRAS IMAGING T ASSOCIATE MATERIAL S RADIOLOGI 21287 [facility] MCCURDY Perla EXAM 9 MEDICAL [place] P CHEST 2 IMAGING VIEWS ASSOCIATE FRONTAL&L S ATERAL ECG 83949 ROSS HAWKINS ROUTINE 9 [facility] ECG INC INC W/LEAST 12 LDS TRCG ONLY W/O I&R RADIOLOGI 76108 [facility] Perla GALLO EXAM 9 MEDICAL CIRA CHEST 2 IMAGING VIEWS ASSOCIATE FRONTAL&L S ATERAL ECG 78841 LARISA TIJERINA, ROUTINE 9 EMERGENCY TIMOTHY S ECG SERVICES W/LEAST 12 LDS ASSOCIATE I&R ONLY S ECHO 37693 [facility] KWESI [facility] R-T 9 PHYSICIAN NADEEM Simon GROUP W/WOM-MOD E COMPL SPEC&COLR D CREATINE 49153 ROSS HAWKINS KINASE 9 [facility] TOTAL INC INC NATRIURET 82205 ROSS HAWKINS IC 9 [facility] PEPTIDE INC INC BLOOD 09614 ROSS HAWKINS COUNT 9 [facility] COMPLETE INC INC AUTO&[place] [address] ROSS HAWKINS TROPONIN 9 [facility] QUANTITAT INC INC CLAUDE SEDIMENTA 31395 ROSS HAWKINS TION RATE [address] [facility] RBC INC INC NON-AUTOM ATED PRESSURIZ 28304 ROSS HAWKINS ED/NONPRE 9 [facility] SSURIZED INC INC INHALATIO N TREATMENT INJECTION J0970 BRIJESH LIANG, 9 [place] ESTRADIOL VALERATE UP TO 40 MG COMPREHEN 84970 ROSS HAWKINS SIVE 9 [facility] METABOLIC INC INC PANEL CREATINE 57475 ROSS HAWKINS KINASE MB 9 [facility] FRACTION INC INC ONLY INJECTION J0970 BRIJESH LIANG, Colt [place] ESTRADIOL VALERATE UP TO 40 MG RADIOLOGI 91896 PETRA LAMBERT C 9 DON R DON R EXAMINATI ON CHEST SINGLE VIEW FRONTAL INJECTION J0970 BRIJESH LIANG, 9 [place] ESTRADIOL VALERATE UP TO 40 MG OPHTHALMO 38556 TERENCE PRATT, FAUSTINOY 9 PARI YAÑEZ EXTENDED RETINAL DRAWING I&R 1ST INJECTION J0970 BRIJESH LIANG, 9 [place] ESTRADIOL VALERATE UP TO 40 MG INJECTION J0970 BRIJESH LIANG, 9 [place] ESTRADIOL VALERATE UP TO 40 MG INJECTION J0970 BRIJESH LIANG, 9 [place] ESTRADIOL VALERATE UP TO 40 MG INJECTION J1040 PETRA LAMBERT 9 DON R DON R METHYLPRE DNISOLONE ACETATE 80 MG INJECTION J0970 BRIJESH LIANG, 9 [place] ESTRADIOL VALERATE UP TO 40 MG BLOOD 15580 ROSS HAWKINS COUNT 9 [facility] COMPLETE INC INC AUTO&AUTO DIFRNTL WBC BASIC 49524 ROSS HAWKINS METABOLIC 9 [facility] PANEL INC INC CALCIUM TOTAL URNLS DIP 13400 ROSS HAWKINS 9 [facility] STICK/TAB INC INC LET REAGENT AUTO MICROSCOP Y RADIOLOGI 91245 [place] Perla GALLO EXAM 9 MEDICAL CIRA CHEST 2 IMAGING VIEWS ASSOCIATE FRONTAL&[place] [address] ROSS HAWKINS THYROID 9 [facility] STIMULATI [place] [address] ROSS HAWKINS THYROID 8 [facility] STIMULATI INC INC NG HORMONE TSH LIPID 65369 ROSS HAWKINS PANEL 8 [facility] INC INC CALCIUM 28251 ROSS HAWKINS TOTAL 8 [facility] INC INC COLLECTIO 61017 ROSS HAWKINS N VENOUS 8 [facility] BLOOD INC INC VENIPUNCT URE INJECTION J1040 PETRA LAMBERT 8 DON R DON R METHYLPRE DNISOLONE ACETATE 80 MG INJECTION J0970 Susannah GRANT MD ESTRADIOL VALERATE UP TO 40 MG INJECTION J0970 Susannah GRANT MD ESTRADIOL VALERATE UP [place] [address] [place] KAZ, GUIDANCE 8 MEDICAL [place] P NEEDLE IMAGING PLACEMENT ASSOCIATE IMG S&I S US BREAST 74556 ROSS HAWKINS REAL 8 [facility] TIME INC INC W/IMAGE DOCUMENTA TION CYTP EVAL 67190 PATHOLOGY PATHOLOGY FINE 8 & & NEEDLE CYTOLOGY CYTOLOGY ASPIRATE LAB LAB INTERP & REPORT PUNCTURE 36889 [place] FRANK MCCURDYATIO 8 MEDICAL [place] P N CYST [place]AG[place] [address] PATHOLOGY PATHOLOGY SURG 8 & & PATHOLOGY CYTOLOGY CYTOLOGY LAB LAB GROSS&MATY ROSCOPIC EXAM EGD 20922 [place] JENNIFER, TRANSORAL 8 [facility] BIOPSY SERV SINGLE/MU FOUNDATIO LTIPLE SPECIAL 50533 PATHOLOGY PATHOLOGY STAIN 8 & & GROUP 1 CYTOLOGY CYTOLOGY MICROORGA LAB LAB NISMS I&R SPCL STN 48856 PATHOLOGY PATHOLOGY 2 I&R 8 & & EXCPT CYTOLOGY CYTOLOGY MICROORG/ LAB LAB ENZYME/[place] NFS 46611 ROSS HAWKINS THER 8 [facility] PROPH/DX INC INC 1ST >1 HR IV NFUS 50128 ROSS HAWIKNS THER 8 [facility] PROPH/DX INC INC EA HR LIPID 67706 ROSS HAWKINS PANEL 8 [facility] INC INC COLLECTIO 06736 ROSS HAWKINS N VENOUS 8 [facility] BLOOD INC INC VENIPUNCT URE SIMPLE 78900 BRIJESH LIANG UROFLOMET 8 [place] RY COMPREHEN 18126 ROSS HAWKINS SIVE 8 [facility] METABOLIC INC INC PANEL URTL 04730 BRIJESH LIANG, PRESS 8 [place] PROFILE STDS BLADDER 19903 BRIJESH LIANG PRESSURE 8 [place] MEASUREME NT DURING FILLING US BREAST 53694 [place] KAZ REAL 8 MEDICAL [place] Licea TIME IMAGING W/IMAGE ASSOCIATE DOCUMENTA S TION BASIC 36813 ROSS HAWKINS METABOLIC 8 [facility] PANEL INC INC CALCIUM TOTAL CREATINE 33880 ROSS HAWKINS KINASE MB 8 [facility] FRACTION INC INC ONLY BLOOD 07653 ROSS HAWKINS COUNT 8 [facility] COMPLETE INC INC AUTO&[place] [address] ROSS HAWKINS TROPONIN 8 [facility] QUANTITAT INC INC CLAUDE CREATINE 01181 ROSS ROSS KINASE 8 [facility] TOTAL INC INC RADIOLOGI 68372 ROSS ROSS C EXAM [address] [facility] CHEST 2 INC INC VIEWS FRONTAL&L ATERAL ECG 30437 ROSS ROSS ROUTINE [address] [facility] ECG INC INC W/LEAST 12 LDS TRCG ONLY W/O I&R IAADIADOO 67406 PETRA LAMBERT, 8 XAVI [place] STREPTOCO CCUS GROUP A INJ J0702 PETRA LAMBERT, BETAMETHA 8 [place] SONE ACETATE & PHOSPHATE 3 MG INJECTION J0970 BRIJESH LIANG, 8 [place] ESTRADIOL VALERATE UP TO 40 MG SCR G0123 [facility] CYTOPATH 8 [facility] CERV/VAG INC INC SCR CYTOTECH UND PHYS SUPV CREATINE 54548 ROSS HAWKINS KINASE MB 8 [facility] FRACTION INC INC ONLY BASIC 49131 ROSS ROSS METABOLIC 8 [facility] PANEL INC INC CALCIUM TOTAL BLOOD 69654 ROSSNIHARIKA HAWKINS COUNT 8 [facility] COMPLETE INC INC AUTO&[place] [address] ROSSNIHARIKA HAWKINS TROPONIN 8 [facility] QUANTITAT INC INC CLAUDE FIBRIN 42589 ROSS ROSS DGRADJ 8 [facility] PRODUCTS INC INC D-DIMER QUAL/SEMI SYLWIA ECG 06251 ROSS HAWKINS ROUTINE 8 [facility] ECG INC INC W/LEAST 12 LDS TRCG ONLY W/O I&R RADIOLOGI 73662 ROSS ROSS C EXAM [address] [facility] CHEST 2 INC INC VIEWS FRONTAL&L ATERAL ECG 22615 ROSS KYARASON, ROUTINE 8 [facility] HOSPITAL W/LEAST PROF SERV 12 LDS I&R ONLY CREATINE 40519 ROSS HAWKINS KINASE 8 [facility] TOTAL INC INC IV NFUS 57170 ROSS HAWKINS THER 8 [facility] PROPH/DX INC INC EA HR ECG 51322 ROSS HAWKINS ROUTINE [address] [facility] ECG INC INC W/LEAST 12 LDS TRCG ONLY W/O I&R BLOOD 56414 ROSS ROSS COUNT 8 [facility]OS[facility] COMPLETE INC INC AUTO&[place] [address] ROSS HAWKINS THER [address] [facility] PROPH/DX INC INC 1ST >1 HR ENTEROLSS 95421 ALLRAN RAO FRING 8 JR, JR, INTSTINAL ROSARIO F ROSARIO F ADHESION SPX THER 03804 ROSS HAWKINS PROPH/DX [address] [facility] NJX EA INC INC SEQL IV PUSH SBST/DRUG BASIC 02216 ROSS ROSS METABOLIC [address] [facility] PANEL INC INC CALCIUM TOTAL ANESTHESI 90513 [facility] Chris SMITH ANESTH ROHAN L INTRAPERI OF THE TONEAL [place] LOWER ABD W/LAPS NOS INJECTION J2405 ROSS HAWKINS 8 [facility] ONDANSETR INC INC ON HCL PER 1 MG LAPAROSCO 41217 ROSS HAWKINS PY 8 [facility] ENTEROLYS INC INC IS SEPARATE PROCEDURE INJECTION J0970 BRIJESH LIANG, Susannah [place] ESTRADIOL VALERATE UP TO 40 MG COMPUTER- 61435 [facility] CIRO MCCURDY 8 FABIENNE Licea DETECTION IMAGING ASSOCIATE SCREENING S MAMMOGRAP HY SCREENING 53160 ROSS HAWKINS 8 [facility] MAMMOGRAP INC INC HY BILATERAL INJECTION J0970 BRIJESH LIANG, 8 [place] ESTRADIOL VALERATE UP TO 40 [place] [address] ROSS HAWKINS THER 8 [facility]OSP PROPH/DX INC INC 1ST >1 HR BLOOD 24241 ROSS ROSS COUNT 8 [facility]OS[facility] COMPLETE INC INC AUTO&AUTO DIFRNTL WBC BASIC 68914 ROSS HAWKINS METABOLIC 8 [facility]OS[facility] PANEL INC INC CALCIUM TOTAL INJECTION J0970 BRIJESH LIANG, 8 [place] ESTRADIOL VALERATE UP TO 40 MG DOPPLER 26326 ROSS HAWKINS ECHOCARD 8 [facility] PULSE INC INC WAVE W/SPECTRA L DISPLAY DOP 31930 ROSS HAWKINS ECHOCARD 8 [facility] COLOR INC INC FLOW VELOCITY MAPPING ECHO 70119 ROSS ROSS TRANSTHOR 8 [facility]OS[facility] AC R-T 2D INC INC W/WO M-MODE REC COMP RADEX 29490 ROSS HAWKINS SMALL 8 [facility]OS[facility] INTESTINE INC INC W/MULTIPL E SERIAL IMAGES XTRNL ECG 26919 ROSS HAWKINS & 48 HR 8 [facility]OS[facility] RECORDING INC INC EXTERNAL 71576 ROSS HAWKINS ECG 8 [facility]OS[facility] SCANNING INC INC ANALYSIS REPORT OPHTHALMO 11604 TERENCE PRATT, FAUSTINOY 8 PAIR YAÑEZ EXTENDED RETINAL DRAWING I&R 1ST INJECTION J1040 PETRA LAMBERT, 8 XAVI R DON R METHYLPRE DNISOLONE ACETATE 80 MG INJECTION J2250 [address] [place] HCL PER 1 MG INTRDUCR/ C1894 [facility] SHEATH [address] [place] [address] NOT GUID INTRACARD EP NON-LASR GLUCOSE 90141 [facility] QUANTITAT [address] [place] [address] CLAUDE BLOOD XCPT REAGENT STRIP CHLORIDE 27553 [facility] BLD [address] [place] [address] CREATININ 69626 [facility] BLOOD [address] [place] [address] COLLECTIO 56303 [facility] N VENOUS [address] [place] [address] BLOOD VENIPUNCT URE POTASSIUM [address] PLASMA/WH OLE BLOOD SODIUM [address] PLASMA OR WHOLE BLOOD INJECTION 19977 [facility] CARDIAC [address] [place] [address] CATHJ L VENTR/[place] [address] [facility] C-CATHJ [address] [place] [address] F/SLCTV C ANGRPH L HRT 29181 [facility] CATHETERI [address] [place] [address] ZATION RETROGRAD E BRACHIAL PERQ I SI&R 08699 [facility] F/MNX PX [address] [place] [address] DURING C-CATHJ VENTR&/AT R ANGRPH INJECTION J3010 [facility] FENTANYL [address] [place] [address] CITRATE 0.1 MG I SI&R 96175 [facility] F/MNX PX [address] [place] [address] DURING C-CATHJ PULM&/OR SELECT LOCM Q9967 [facility] [phone] [place] [address] MG/ML IODINE CONCENTRA TION PER ML BLOOD [address] [place] [address] [facility] UREA [address] [place] [address] NITROGEN QUANTITAT CLAUDE BLOOD [address] [place] AUTOMATED INJECTION J0970 BRIJESH LIANG, 8 AZ[place] ESTRADIOL VALERATE UP TO 40 MG RADEX 43136 [facility] MCCURDY, ABDOMEN 8 MEDICAL [place] Licea COMPL IMAGING W/DCBTS&/ ASSOCIATE ERC VIEWS S RADEX 81813 ROSS HAWKINS ABDOMEN [address] [facility] INC INC ANTEROPOS TERIOR VIEW INJECTION J0970 BRIJESH LIANG MD ESTRADIOL VALERATE UP TO 40 MG BLADDER 07689 BRIJESH [place] PRESSURE 8 AZUL LIANG MD MEASUREME NT DURING FILLING SIMPLE 59940 BRIJESH [place] UROFLOMET 8 AZUL LIANG MD RY ANES 48055 [facility] CHEYENNE LOWER 8 ANESTH INTESTINE ANESTHESI OF THE A OF THE [place] ENDOSCOPY [facility] DISTAL PL DUODENUM COLSC FLX 18137 ROSS HAWKINS W/RMVL 8 [facility] OF TUMOR INC [place] [address] ROSS HAWKINS THER 8 [facility] PROPH/DX INC INC 1ST >1 [place] [address] PATHOLOGY PATHOLOGY SURG 8 & & PATHOLOGY CYTOLOGY CYTOLOGY LAB LAB GROSS&MATY ROSCOPIC EXAM Encounters Encounter Start End Date Code Location Performer Type Date OFFICE 87380 [facility] HERR OUTPATIEN 7 7 PHYSICIAN T VISIT S GROUP 10 [facility] ROSS - 7 7 [facility] OUTPATIEN INC T OFFICE 24585 NEPHROLOG AGUDELO OUTPATIEN 7 7 Y T VISIT ASSOCIATE 25 S OF BERRY MINUTES OFFICE 89428 ROSS CHAN OUTPATIEN 7 7 [facility] T VISIT [facility] 10 [facility] ROSS - [address] [facility] OUTPATIEN INC T OFFICE 91104 [place] OUTPATIEN 7 7 MEDICAL T VISIT SERV 25 FOUNDATIO MINUTES N OFFICE 89566 [facility] LAMI OUTPATIEN 7 7 [facility] T VISIT MEDICAL 15 G MINUTES OFFICE 03492 [facility] OUTPATIEN 7 7 PHYSICIAN T VISIT S GROUP 15 MINUTES OFFICE 65418 NEPHROLOG AAMIR OUTPATIEN 7 7 Y T VISIT ASSOCIATE 25 S OF BERRY MINUTES OFFICE 28203 [facility] BREEZY OUTPATIEN 6 6 PHYSICIAN T VISIT S GROUP 25 MINUTES OFFICE 53069 [place] ZIMMERMAN OUTPATIEN 6 6 MEDICAL T NEW 20 SERV MINUTES FOUNDATIO N OFFICE 89458 NEPHROLOG TENA OUTPATIEN 6 6 Y T VISIT ASSOCIATE 25 S OF BERRY MINUTES OFFICE 83851 [facility]IE OUTPATIEN [address] MINUTES HOSPITAL ROSS - 6 6 [facility] OUTPATIEN [facility] ROSS - 6 6 [facility] OUTPATIEN INC T OFFICE 18710 [facility] BREEZY OUTPATIEN 6 6 PHYSICIAN MATY T VISIT S GROUP 25 MINUTES EMERGENCY 72380 ROSS 6 [address] [facility] T VISIT LIMITED/M INOR [facility] ROSS - 6 6 [facility] OUTPATIEN [facility] OFFICE 60305 [facility] JACQUI BRUNSON OUTPATIEN 6 6 PHYSICIAN T VISIT S GROUP 15 MINUTES OFFICE 96633 [facility] OUTPATI 6 6 Y OF CK JOSE T VISIT [place] 25 HOSPI [facility] ROSS - 6 6 [facility]IENT [facility] - 6 6 [facility] OUTPATIEN [facility] EMERGENCY 37538 ROSS [address] [facility] T VISIT LOW/MODER SEVERITY HOSPITAL ROSS - 6 6 [facility] OUTPATIEN [facility] ROSS - 6 6 [facility] OUTPATIEN INC HOSPITAL ROSS - 6 6 [facility] OUTPATIEN INC HOSPITAL ROSS - 6 6 [facility] OUTPATIEN INC HOSPITAL ROSS - 6 6 [facility] OUTPATIEN [facility] ROSS - 6 6 [facility] OUTPATIEN INC [facility] ROSS - 6 6 [facility] OUTPATIEN INC [facility] ROSS - 6 6 [facility] OUTPATIEN INC HOSPITAL ROSS - 6 6 [facility] OUTPATIEN INC T HOSPITAL ROSS - 6 6 [facility] OUTPATIEN INC T OFFICE 95036 [facility] JACQUELINE-M OUTPATIEN 6 6 PHYSICIAN OGHADDAM T VISIT S GROUP 15 MINUTES HOSPITAL ROSS - 6 6 [facility] OUTPATIEN INC T EMERGENCY 74394 ROSS 6 6 [facility] DEPARTMEN INC T VISIT LOW/MODER SEVERITY OFFICE 35330 [facility] OUTPATIEN 6 6 Y OF CK JOSE T VISIT [place] 40 HOSPI MINUTES OFFICE 33327 ROSS GILES OUTPATIEN 6 6 [facility] T VISIT HOSPITAL 10 P MINUTES HOSPITAL ROSS - 6 6 [facility] OUTPATIEN INC T OFFICE 48959 [facility] BREEZY OUTPATIEN 6 6 PHYSICIAN MATY T VISIT S GROUP 15 MINUTES OFFICE 73781 NEPHROLOG AGUDELO OUTPATIEN 6 6 Y NABIL T VISIT ASSOCIATE 25 S OF BERRY MINUTES HOSPITAL ROSS - 6 6 [facility] OUTPATIEN INC T OFFICE 59771 [facility] JACQUI TOD OUTPATIEN 6 6 PHYSICIAN T VISIT S GROUP 10 MINUTES HOSPITAL ROSS - 6 6 [facility] OUTPATIEN INC T OFFICE 67685 [facility] HERR OUTPATIEN 6 6 PHYSICIAN FRANKIE T VISIT S GROUP 10 MINUTES OFFICE 23732 [facility] HARPEL OUTPATIEN 6 6 PHYSICIAN STEFANIE T VISIT S GROUP 15 MINUTES HOSPITAL ROSS - 6 6 [facility] OUTPATIEN INC T OFFICE 82459 [facility] BREEZY OUTPATIEN 6 6 PHYSICIAN MATY T VISIT S GROUP 15 MINUTES EMERGENCY 18955 ROSS 6 6 [facility] DEPARTMEN INC T VISIT MODERATE SEVERITY HOSPITAL ROSS - 6 6 [facility] OUTPATIEN INC T EMERGENCY 06021 ROSS 6 6 [facility] DEPARTMEN INC T VISIT LOW/MODER SEVERITY HOSPITAL ROSS - 6 6 [facility] OUTPATIEN INC [facility] ROSS - [address] [facility] OUTPATIEN INC T OFFICE 72397 [facility] JACQUI TOD OUTPATIEN 6 6 PHYSICIAN T VISIT S GROUP 10 MINUTES OFFICE 15259 [facility] JACQUELINE-M OUTPATIEN 6 6 PHYSICIAN OGTASHIDDAM T NEW S GROUP MINUTES EMERGENCY 59670 ROSS 6 6 [facility] DEPARTMEN INC T VISIT LOW/MODER SEVERITY HOSPITAL ROSS - [address] [facility] OUTPATIEN [facility] T OFFICE 30389 ROSS LOWEKINS OUTPATIEN 6 6 [facility] 15 P [facility] ROSS - [address] [facility]IEN [facility] T OFFICE 14285 ROSS LOWEKINS OUTPATIEN 6 6 [facility] 10 P [facility] OAK[facility]URST - 6 6 [facility] [facility]IEN HOSP T OFFICE 96280 NEPHROLOG AGUDELO OUTPATIEN 6 6 Y NABIL T VISIT ASSOCIATE 25 S OF BERRY MINUTES [facility] [place] [id number] HOSPITAL OUTPATIEN T OFFICE 32056 [facility] HERR OUTPATIEN 6 6 PHYSICIAN FRANKIE T VISIT S GROUP 15 MINUTES OFFICE 59464 [facility] DON OUTPATIEN 6 6 HEALTH STEFANIE T NEW 45 MEDICAL MINUTES GROUP OFFICE 33784 ROSS GILES OUTPATIEN 6 6 [facility] 10 P MINUTES OFFICE 99007 [facility] HERR OUTPATIEN 6 6 PHYSICIAN FRANKIE T VISIT S GROUP 15 MINUTES OFFICE 54114 NEPHROLOG NEEL OUTPATIEN 6 6 Y THO T NEW 60 ASSOCIATE MINUTES S OF BERRY OFFICE 71040 RODOLFO COHEN OUTPATIEN 6 6 MEDICAL JAM T VISIT SERV 15 FOUNDATIO MINUTES N EMERGENCY [id number] ROSS 6 6 [facility] DEPARTMEN INC T VISIT HIGH/URGE NT SEVERITY HOSPITAL ROSS - 6 6 [facility] OUTPATIEN INC T OFFICE 55351 ROSS GILES OUTPATIEN 6 6 [facility] T VISIT HOSPITAL 15 P MINUTES HOSPITAL ROSS - [address] [facility] OUTPATIEN INC T OFFICE 17841 BRIJESH LIANG OUTPATIEN 6 6 AZUL WATTS T VISIT 15 MINUTES HOSPITAL ROSS - [address] [facility] OUTPATIEN INC T OFFICE 84856 [facility] PHYS[facility] STONE T [facility]ISIT S GROUP PA-Perla DEEPAK 15 MINUTES [facility] ROSS - [address] [facility] OUTPATIEN [facility] T EMERGENCY [address] [facility] DEPARTMEN INC T VISIT [facility]OW/MODER SEVERITY HOSPITAL ROSS - [address] [facility] OUTPATIEN [facility] ROSS - [address] [facility]IEN [facility] T OFFICE 82661 [facility] 5 [facility] T [facility]ISIT MEDICAL 15 G MINUTES [facility] [address] [facility] [address] ROSS - [address] [facility]EN [facility] ROSS - [address] [facility]EN [facility] ROSS - 5 5 [facility] ROSS [facility] 5 5 [facility] ROSS - 5 5 [facility] ROSS - 5 5 [facility]PATIEN INC T OFFICE 10621 [facility] LAUREN OUTPATIEN 5 5 PHYSICIAN STONE T VISIT S GROUP SALTY SOTELO 15 HOSPITAL ROSS - 5 5 [facility] ROSS - 5 5 [facility] ROSS - 5 5 [facility] OUTPATIEN INC T OFFICE 46035 CARMENZA CHANCEON OUTPATIEN 5 5 FRANKIE FRANKIE T VISIT [facility] ROSS [facility] 5 5 [facility] OUTPATIEN INC T EMERGENCY 82174 ROSS CARBALLOEY 5 5 [facility] T VISIT P MODERATE SEVERITY HOSPITAL ROSS - 5 5 [facility] OUTPATIEN INC T EMERGENCY 76095 ROSS CARBALLOEY 5 5 [facility] T VISIT P MODERATE SEVERITY HOSPITAL ROSS - 4 4 [facility] ROSS - 4 4 [facility] ROSS - 4 4 [facility] INC T OFFICE 76471 [facility] OUTPATIEN 4 4 PHYSICIAN T VISIT S GROUP MINUTES HOSPITAL ROSS [facility] 4 4 [facility] ROSS - 4 4 [facility] T OFFICE 03514 BREEZY TIJERINA OUTPATIEN 4 4 [facility] 20 MINUTES [facility] ROSS - [address] [facility] ROSS - [address] [facility] ROSS - [address] [facility] ROSS - [address] [facility] - 3 3 [facility] ROSS - [address] [facility] OUTPATIEN [facility] ROSS [facility] [address] [facility] OUTPATIEN [facility] ROSS - 3 [address] [facility] OUTPATIEN [facility] ROSS - [address] [facility]IEN [facility] ROSS [facility] [address] [facility] OUTPATIEN [facility] OFFICE 99160 MCKEMIE MCKEMIE OUTPATIEN 3 3 JR IRAIDA LOPEZ IRAIDA T VISIT 15 MINUTES EMERGENCY 48097 ALFARIS ALFARIS 3 3 [facility] T VISIT MODERATE SEVERITY HOSPITAL ROSS - [address] [facility] OUTPATIEN [facility] ROSS [facility] [address] [facility] INPATIENT [facility] OFFICE 58827 MCKEMIE CHRISTOKEMIE OUTPATIEN 3 3 JR IRAIDA LOPEZ IRAIDA T NEW 30 MINUTES OFFICE 45065 PETTEY PETTEY OUTPATIEN 3 3 AINSLEY SCHMITZ [facility] 30 MINUTES HOSPITAL ROSS - 3 3 [facility]EN [facility] OFFICE 91482 FALLUDAYO FALLUJI OUTPATIEN 3 3 [facility] VALENTINE T VISIT 25 MINUTES HOSPITAL ROSS - [address] [facility] OUTPATIEN [facility] ROSS [facility] [address] [facility] OUTPATIEN [facility] ROSS - 2 2 [facility] INC T OFFICE 30631 GILES GILES OUTPATIEN 2 2 SONDRA SONDAR T VISIT 5 MINUTES OFFICE 38525 HARPEL OUTPATIEN 2 2 STEFANIE T VISIT 5 MINUTES HOSPITAL ROSS - 2 2 [facility] ROSS - 2 2 [facility] ROSS - 2 2 [facility] ROSS - 2 2 [facility] INC T OFFICE 44507 BRIJESH LIANG OUTPATIEN 2 2 AZUL PALMER STEFANIE T VISIT 5 MINUTES OFFICE 78508 [facility]S OUTPATIEN 2 2 [facility] T VISIT INC 25 MINUTES HOSPITAL ROSS - 2 2 [facility] INC T OFFICE 93658 BRIJESH KAISERL OUTPATIEN 2 2 AZUL PALMER STEFANIE T VISIT 5 MINUTES OFFICE 66538 BRIJESH LIANG OUTPATIEN 2 2 AZ[facility] PALMER STEFANIE T VISIT 5 MINUTES HOSPITAL ROSS - 1 1 [facility] INC T OFFICE 67187 BRIJESH LIANG OUTPATIEN 1 1 AZ[facility] PALMER STEFANIE T VISIT 5 MINUTES HOSPITAL ROSS - 1 1 [facility] ROSS - 1 1 [facility] ROSS - 1 1 [facility] INC T OFFICE 95892 BRIJESH KAISERL OUTPATIEN 1 1 AZUL PALMER STEFANIE T VISIT 5 MINUTES OFFICE 31290 ROSS GILES OUTPATIEN 1 1 [facility] 25 P MINUTES HOSPITAL ROSS - 1 1 [facility] T OFFICE 25557 ROSS OUTPATIEN 1 1 [facility] T VISIT INC 25 MINUTES HOSPITAL ROSS - 1 1 [facility]IEN INC T OFFICE 14965 [facility] PRASHANTHU OUTPATIEN 1 1 PHYSICIAN MEME T VISIT S GROUP 25 MINUTES OFFICE 45358 BRIJESH LIANG OUTPATIEN 1 1 AZUL PALMER STEFANIE T VISIT 5 MINUTES OFFICE 14015 ROSS LOWEKINS OUTPATIEN 1 1 [facility] VISIT HOSPITAL 25 P MINUTES OFFICE 01669 BRIJESH LIANG OUTPATIEN 1 1 AZUL PALMER STEFANIE T VISIT 5 MINUTES OFFICE 71727 BRIJESH LIANG OUTPATIEN 1 1 AZ[facility] PALMER STEFANIE T VISIT 5 MINUTES HOSPITAL ROSS - 1 1 [facility] OUTPATIEN [facility] ROSS [facility] 1 1 [facility] OUTPATIEN [facility] OFFICE 15153 ROSS LOWEKINS OUTPATIEN 1 1 [facility] VISIT HOSP[facility] 25 P MINUTES HOSPITAL ROSS - [address] [facility] INPATIENT [facility] EMERGENCY 81422 LARISA TIJERINA DEPT 1 1 EMERGENCY MATY VISIT SERVICES HIGH SEVERITY& THREAT FUN OFFICE 78705 Perla PHILLIPS OUTPATIEN 1 1 JACQUELINE GONZALEZ T VISIT [facility] 25 MINUTES OFFICE 18140 BRIJESH LIANG OUTPATIEN 0 0 AZUL PALMER STEFANIE T VISIT 25 MINUTES HOSPITAL ROSS - 0 0 [facility] OUTPATIEN [facility] ROSS - 0 0 [facility] OUT[facility]IEN [facility] ROS[facility] - [address] [facility] OUTPATIEN INC T HOSPITAL ROSS - [address] [facility] OUTPATIEN [facility] T OFFICE 20662 BRIJESH LIANG OUTPATIEN 0 0 AZUL Hassan VISIT 5 MINUTES EMERGENCY 33855 LARISA AGUILAR [facility] DEPT 0 0 EMERGENCY VISIT SERVICES HIGH SEVERITY& THREAT FUNCJ [facility] ROSS - [address] [facility] INPATIENT INC OFFICE 50357 COMMONWEA GILES OUTPATIEN 0 0 LTH SONDRA T VISIT UROLOGY 25 PSC MINUTES OFFICE 38617 BRIJESH LIANG OUTPATIEN 0 0 AZUL WATTS T VISIT 5 MINUTES [facility] ROSS - [address] [facility] OUTPATIEN [facility] T OFFICE 56602 COMMONWEA GILES OUTPATIEN 0 0 LTH SONDRA T VISIT UROLOGY 25 PSC MINUTES OFFICE 45046 [facility] GILES OUTPATIEN 0 0 LTH SONDRA T VISIT UROLOGY 25 PSC MINUTES OFFICE 33499 BRIJESH LIANG OUTPATIEN 0 0 AZUL Hassan VISIT 5 MINUTES [facility] ROSS - [address] [facility] OUTPATIEN INC T OFFICE 81194 BRIJESH LIANG OUTPATIEN 0 0 [facility] [place] T VISIT 5 MINUTES OFFICE 40591 [facility] GILES OUTPATIEN 0 0 LTH SONDRA T VISIT UROLOGY 25 PSC MINUTES OFFICE 13992 BRIJESH LIANG OUTPATIEN 0 0 [place] [place] T VISIT 15 MINUTES OFFICE 72019 COMMONWEA GILES, OUTPATIEN 0 0 LTH FLO D T NEW 30 UROLOGY MINUTES PSC OFFICE 29280 BRIJESH LIANG OUTPATIEN 0 0 AZUL WATTS T VISIT 5 MINUTES OFFICE 27706 BRIJESH LIANG OUTPATIEN 0 0 AZUL COLEY R T VISIT 15 MINUTES OFFICE 69609 BRIJESH LIANG OUTPATIEN 0 0 AZUL COLEY R T VISIT 15 MINUTES OFFICE 02500 BRIJESH LIANG OUTPATIEN 0 0 AZUL COLEY R T VISIT 5 MINUTES HOSPITAL ROSS - 0 0 [facility] OUTPATIEN INC T OFFICE 95932 BRIJESH LIANG OUTPATIEN 0 0 [facility] [place] T VISIT 25 MINUTES HOSPITAL ROSS - 0 0 [facility] OUTPATIEN INC T OFFICE 81580 BRIJESH LIANG OUTPATIEN 0 0 [facility] [place] T VISIT 25 MINUTES OFFICE 41955 BRIJESH LIANG OUTPATIEN 0 0 [facility] [place] T VISIT 5 MINUTES EMERGENCY 09744 LARISA TIJERINA, 0 0 EMERGENCY [facility] SERVICES T VISIT HIGH/URGE ASSOCIATE NT S SEVERITY EMERGENCY 39904 ROSS 0 0 [facility] DEPARTMEN INC T VISIT MODERATE SEVERITY HOSPITAL ROSS - [address] [facility] T HOSPITAL ROSS - 0 0 [facility] OUTPATIEN INC T EMERGENCY 75417 ROSS 0 0 [facility] DEPARTMEN INC T VISIT LOW/MODER SEVERITY EMERGENCY 03900 LARISA TIJERINA, 0 0 EMERGENCY [facility] T VISIT HIGH/URGE ASSOCIATE NT S SEVERITY OFFICE 12879 BRIJESH LIANG OUTPATIEN 9 9 [facility] [place] T VISIT 5 MINUTES OFFICE 03445 SCHULSTMYNOR SCHULSTMYNOR CONSULTAT 9 9 , FLORECITA BERNABE ION NEW/ESTAB PATIENT 60 MIN OFFICE 62229 LESLIE GRANT 9 9 [facility] [place] T VISIT 40 MINUTES HOSPITAL ROSS - 9 9 [facility] OUTPATIEN INC T EMERGENCY 56966 LARISA CARRASCO, 9 9 EMERGENCY [facility] DEPARTMEN SERVICES T VISIT MODERATE ASSOCIATE SEVERITY S OFFICE 54260 LESLIE GRANT 9 9 [facility] [place] T VISIT 5 MINUTES EMERGENCY 54190 LARISA TYLER, 9 9 EMERGENCY [facility] DEPARTMEN SERVICES T VISIT HIGH/URGE ASSOCIATE NT S SEVERITY EMERGENCY 48424 ROSS 9 9 [facility] DEPARTMEN INC T VISIT LOW/MODER SEVERITY HOSPITAL ROSS - 9 9 [facility] OUTPATIEN INC T HOSPITAL ROSS - 9 9 [facility] OUTPATIEN INC T OFFICE 85432 [facility] LESLIE OROSCO 9 9 PHYSICIAN N[place]EM [place] T VISIT S GROUP 25 MINUTES OFFICE 21381 LESLIE GRANT 9 9 [facility] [place] T VISIT 5 MINUTES HOSPITAL ROSS - 9 9 [facility] OUTPATIEN INC T HOSPITAL ROSS - 9 9 [facility] OUTPATIEN INC T EMERGENCY 65393 ROSS 9 9 [facility] DEPARTMEN INC T VISIT LOW/MODER SEVERITY EMERGENCY 11186 LARISA AGUILAR, 9 9 EMERGENCY TARY[facility] DEPARTMEN SERVICES O T VISIT HIGH/URGE ASSOCIATE NT S SEVERITY OFFICE 20657 PETRA LAMBERT OUTPATIEN 9 9 DON R DON R T VISIT 15 MINUTES HOSPITAL ROSS - [address] [facility] OUTPATIEN INC T HOSPITAL ROSS - [address] [facility] OUTPATIEN INC T OFFICE 49376 LESLIE GRANT 9 9 [facility] [place] T VISIT 5 MINUTES EMERGENCY 12013 LARISA TIJERINA, DEPT 9 9 EMERGENCY TIMOTHY S VISIT SERVICES HIGH SEVERITY& ASSOCIATE THREAT S FUNCJ EMERGENCY [address] [facility] DEPARTMEN INC T VISIT HIGH/URGE NT SEVERITY OFFICE 33127 BRIJESH LIANG OUTCRISS 9 9 [place] [place] T VISIT 5 MINUTES EMERGENCY [address] [facility] DEPARTMEN INC T VISIT LIMITED/M INOR PROB HOSPITAL ROSS - [address] [facility] OUTPATIEN INC T EMERGENCY 45428 LARISA RUTLEDGE, 9 9 EMERGENCY KATHY J DEPARTMEN SERVICES T VISIT MODERATE ASSOCIATE SEVERITY S OFFICE 59256 PETRA LAMBERT OUTCRISS 9 9 DON R DON R T VISIT 15 MINUTES EMERGENCY 74792 LARISA MARROQUIN, 9 9 EMERGENCY ANY R DEPARTMEN SERVICES T VISIT MODERATE ASSOCIATE SEVERITY S EMERGENCY [address] [facility] DEPARTMEN INC T VISIT LIMITED/M INOR PROB HOSPITAL ROSS - [address] [facility] OUTPATIEN INC T OFFICE 13485 LESLIE BERTRAND 9 9 FABIENNE [place] T VISIT SERV 25 FOUNDATIO MINUTES OFFICE 50810 TERENCE PRATT OUTPATIDENNISE 9 9 PARI YAÑEZ T VISIT 40 MINUTES OFFICE 45870 LESLIE GRANT 9 9 [facility] [place] T VISIT 5 MINUTES OFFICE 28227 BRIJESH LIANG OUTPATIDENNISE 9 9 AZUL COLEY R T VISIT 5 MINUTES OFFICE 04248 JULIAN GRANTPATIDENNISE 9 9 AZ[facility] COLEY R T VISIT 5 MINUTES OFFICE 82806 PETRA LAMBERT OUTPATIEN 9 9 DON R DON R T VISIT 15 MINUTES OFFICE 37004 BRIJESH LIANG OUTPATIDENNISE 9 9 AZUL COLEY R T VISIT 5 MINUTES HOSPITAL ROSS - 9 9 [facility] OUTPATIEN INC T EMERGENCY 25491 ROSS 9 9 [facility] DEPARTMEN INC T VISIT MODERATE SEVERITY EMERGENCY 71376 JUSTINO TIJERINA, DEPT 9 9 [facility] VISIT CORPORATI HIGH ON SEVERITY& THREAT [facility] OFFICE 42942 PETRA LAMBERT OUTPATIEN 8 8 DON R DON R T VISIT 15 MINUTES HOSPITAL ROSS - 8 8 [facility] OUTPATIEN INC T OFFICE 87159 PETRA LAMBERT OUTPATIEN 8 8 DON R DON R T VISIT 15 MINUTES OFFICE 39928 LESLIE GRANT 8 8 AZUL [place] R T VISIT 5 MINUTES OFFICE 09546 BRIJESH LIANG OUTPATIDENNISE 8 8 [facility] [place] R T VISIT 25 MINUTES OFFICE 33067 LESLIE GRANT 8 8 [facility] [place] T VISIT 5 MINUTES OFFICE 10377 LESLIE OTOOLE 8 8 MEDICAL CLYDE T VISIT SERV 10 FOUNDATIO MINUTES OFFICE 73916 LESLIE GRANT 8 8 [place] [place] T VISIT 25 MINUTES OFFICE 59879 PETRA LAMBERT OUTPATIEN 8 8 DON R DON R T VISIT 15 MINUTES HOSPITAL ROSS - [address] [facility] OUTPATIEN [facility] T HOSPITAL ROSS - [address] [facility] OUTPATIEN [facility] T OFFICE 92890 LESLIE LEMUS 8 8 MEDICAL GEN T NEW 30 SERV ER A MINUTES FOUNDATIO OFFICE 06685 [facility] MEDICAL ANDER T VISIT SERV 25 FOUNDATIO MINUTES OFFICE 30819 PETRA LAMBERT OUTPATIEN 8 8 DON R DON R T VISIT 15 MINUTES HOSPITAL ROSS - [address] [facility] OUTPATIEN [facility] ROSS - [address] [facility] T EMERGENCY [address] [facility] DEPARTMEN [facility] T VISIT HIGH/URGE NT SEVERITY OFFICE 78735 PETRA LAMBERT OUTPATIEN 8 8 DON R DON R T VISIT 15 MINUTES OFFICE 43659 LESLIE GRANT 8 8 [place] [place] T VISIT 40 MINUTES OFFICE 14207 PETRA LAMBERT OUTPATIEN 8 8 DON R DON R T VISIT 15 MINUTES EMERGENCY [address] [facility] DEPARTMEN INC T VISIT MODERATE SEVERITY HOSPITAL ROSS - [address] [facility] OUTPATIEN [facility] T HOSPITAL ROSS - [address] [facility] OUTPATIEN INC T OFFICE 39324 LESLIE GRANT 8 8 [place] [place] T VISIT 5 MINUTES HOSPITAL ROSS - [address] [facility] T OFFICE 22198 ALLRAN ALLRAN OUTPATIEN 8 8 JR JOHN, T VISIT ROSARIO Mary 25 MINUTES OFFICE 63908 [facility] [place] [place] T VISIT 5 MINUTES OFFICE 76887 [facility] DON R DON R T VISIT 15 MINUTES OFFICE 42738 [facility] 8 8 [facility] T VISIT SERV 25 FOUNDATIO MINUTES EMERGENCY [address] [facility] DEPARTMEN [facility] T VISIT LOW/MODER SEVERITY HOSPITAL ROSS - [address] [facility] OUTPATIEN [facility]PITAL ROSS [facility] [address] [facility] T EMERGENCY [address] [facility] DEPARTMEN [facility] T VISIT HIGH/URGE NT SEVERITY OFFICE 42083 ALLRAN ALLRAN OUTPATIEN 8 8 JR JOHN, T VISIT ROSARIO Mary 15 MINUTES OFFICE 63159 ALLRAN ALLRAN OUTPATIEN 8 8 JR JOHN, T VISIT ROSARIO Mary 25 MINUTES OFFICE 47153 [facility] 8 8 [facility] [place] T VISIT 5 MINUTES HOSPITAL ROSS - [address] [facility] T HOSPITAL ROSS [facility] [address] [facility] T HOSPITAL ROSS - [address] [facility] T OFFICE 30581 [facility] 8 DON R DON R T VISIT 15 MINUTES OFFICE 07554 TERENCE PRATT, CLARI 8 8 PARI [facility]/ESTAB PATIENT 80 MIN [facility]OSPITAL [facility] - 8 8 [facility] [place] - 8 8 [facility] T OFFICE 46088 BRIJESH LIANG [facility] 8 8 AZUL Hassan VISIT 25 MINUTES OFFICE 42071 PETRA LAMBERT [facility] 8 8 XAVI [place] T VISIT 15 MINUTES [facility] [place] - 8 [facility] T OFFICE 93588 RODOLFO RODRIGUEZ [facility] 8 8 [facility] VISIT SERV 25 FOUNDATIO MINUTES
--- OUTSIDE RECORDS SUMMARY | 2017-04-03 13:31 | External Medical Summary Rpt ---
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 G[facility]ES POST-VOID 7 [facility] RESIDUAL P URINE&/BL ADDER CAP PRTBLE E0431 DAREK OSWALD GASEOUS 7 HOME HOME O2 SYS MEDICAL MEDICAL RENT; EQUIPME EQUIPME FLWMTR HUMIDFR&M ASK O2 CONC 1 E1390 DAREK OSWALD DEL PORT 7 HOME HOME 85%/>02 MEDICAL MEDICAL CONC AT EQUIPME EQUIPME PRSC FLW RATE ECHO 23142 [facility] TTHRC R-T 7 [facility] 2D INC INC W/WOM-MOD E COMPL SPEC&COLR D ECG 07744 [facility] LAM ROUTINE 7 [facility] ECG MEDICAL W/LEAST G 12 LDS W/I&R PRTBLE E0431 DAREK OSWALD GASEOUS 7 HOME [...] AT EQUIPME EQUIPME PRSC FLW RATE BLOOD 55463 [facility] COUNT 6 [facility] RETICULOC INC INC YTE AUTOMATED CULTURE 90012 [facility] BACTERIAL 6 [facility] INC INC [place]ANTT[place] [address] [facility] ERYTHROPO 6 [facility] IETIN INC INC IRON 58489 [facility] BINDING 6 [facility] CAPACITY INC INC RENAL 45667 [facility] FUNCTION 6 [facility] PANEL INC INC URNLS DIP 36278 [facility] 6 [facility] STICK/TAB INC INC [place] [address] [facility] FERRITIN 6 [facility] INC INC COLLECTIO 87096 [facility] N VENOUS 6 [facility] [place] [address] [facility] RETROPERI 6 [facility] TONEAL INC [place] W/[place] [address] BALDEV BIRD RETROPERI 6 MEDICAL TONEAL IMAGING [place] [address] [facility] IRON 6 [facility] INC INC RADEX 54445 BALDEV LAURAUTCHER RIBS 6 MEDICAL UNILATERA IMAGING L 2 VIEWS ASS RADEX 18182 [facility] RIBS UNI 6 [facility] W/POSTERO INC INC ANT CH MINIMUM 3 VIEWS RADEX 94265 BALDEV BIRD RIBS UNI 6 MEDICAL W/POSTERO IMAGING ANT CH ASS MINIMUM 3 VIEWS PRTBLE E0431 DAREK DAREK GASEOUS 6 HOME HOME O2 SYS MEDICAL MEDICAL RENT; EQUIPME EQUIPME FLWMTR HUMIDFR&M ASK O2 CONC 1 E1390 DAREK OSWALD DEL PORT 6 HOME HOME 85%/>02 MEDICAL MEDICAL CONC AT EQUIPME EQUIPME PRSC FLW RATE RADIOLOGI 11375 BALDEV BIRD ALL C EXAM 6 MEDICAL CHEST 2 IMAGING VIEWS ASS FRONTAL&L ATERAL ECG 26782 ROS[facility] ELDER ROUTINE 6 [facility] W/LEAST P 12 LDS I&R ONLY RADIOLOGI 18290 [facility] C EXAM 6 [facility] CHEST 2 INC INC VIEWS FRONTAL&L ATERAL PRESSURIZ 96525 [facility] ED/NONPRE 6 [facility] SSURIZED INC INC INHALATIO N TREATMENT PRTBLE E0431 DAREK OSWALD GASEOUS 6 HOME HOME O2 SYS MEDICAL MEDICAL RENT; EQUIPME EQUIPME FLWMTR HUMIDFR&M ASK O2 CONC 1 E1390 DAREK BELTRAN PORT 6 HOME HOME 85%/>02 MEDICAL MEDICAL CONC AT [facility] FLW RATE THERAPEUT 93050 [facility] IC 6 [facility] PROPHYLAC INC INC TIC/DX INJECTION SUBQ/IM THERAPEUT 45468 [facility] IC 6 [facility] PROPHYLAC INC INC TIC/DX INJECTION SUBQ/IM THERAPEUT 49637 [facility] IC 6 [facility] PROPHYLAC INC INC TIC/DX INJECTION SUBQ/IM PHRM Q0513 YOUR YOUR DISPENSIN 6 PHARMACY PHARMACY G [employer] INHALATIO N RX; PER 30 DAYS ADMN SET A7003 YOUR YOUR SM VOL 6 PHARMACY PHARMACY NONFILTR [facility] PNEUMAT NEBULIZR DISPBL ALBUTEROL J7620 YOUR YOUR TO 2.5 6 PHARMACY PHARMACY [employer] IPRATROPI UM BROM TO 0.5 MG THERAPEUT 03565 [facility] IC 6 [facility] PROPHYLAC INC INC TIC/DX INJECTION SUBQ/IM THERAPEUT 67876 [facility] IC 6 [facility] PROPHYLAC INC INC TIC/DX INJECTION SUBQ/IM THERAPEUT 04534 [facility] IC 6 [facility] PROPHYLAC INC INC TIC/DX INJECTION SUBQ/IM THERAPEUT 99717 [facility] IC 6 [facility] PROPHYLAC INC INC TIC/DX INJECTION SUBQ/IM THERAPEUT 75813 [facility] IC 6 [facility] PROPHYLAC INC INC TIC/DX INJECTION SUBQ/IM THERAPEUT 13853 [facility] IC 6 [facility] PROPHYLAC INC INC TIC/DX INJECTION SUBQ/IM THERAPEUT 56274 [facility] IC 6 [facility] PROPHYLAC INC INC TIC/DX INJECTION SUBQ/IM COLLECTIO 52484 [facility] N VENOUS 6 [facility] [place] [address] [facility] ABDOMINAL 6 [facility] REAL INC [place] [address] [facility] BIRD ALL ABDOMINAL 6 MEDICAL REAL IMAGING TIME ASS W/IMAGE LIMITED PRTBLE E0431 DAREK MCGOWAN GASEOUS 6 HOME MAR O2 SYS MEDICAL RENT; EQUIPME FLWMTR HUMIDFR&M ASK O2 CONC 1 E1390 DAREK MCGOWAN DEL PORT 6 HOME MAR 85%/>02 MEDICAL CONC AT [facility] FLW RATE CALCIUM 35949 [facility] IONIZED 6 [facility] INC INC NERVE 20102 [facility] CONDUCTIO 6 [facility] N STUDIES INC INC 5-6 STUDIES URNLS DIP 79365 [facility] 6 [facility] STICK/TAB INC INC LET REAGENT AUTO MICROSCOP Y RENAL 71944 [facility] FUNCTION 6 [facility] PANEL INC INC AREO MASK A7015 YOUR YOUR USED W/ 6 PHARMACY PHARMACY DME NEB [facility] ADMN SET A7003 YOUR YOUR SM VOL 6 PHARMACY PHARMACY NONFILMOSES [facility] PNEUMAT NEBULIZR DISPBL PHRM Q0513 YOUR YOUR DISPENSIN 6 PHARMACY PHARMACY G FEE [facility] INHALATIO N RX; PER 30 DAYS ALBUTEROL J7620 YOUR YOUR TO 2.5 6 PHARMACY PHARMACY [employer] IPRATROPI UM BROM TO 0.5 MG COLONOSCO 50577 [facility] PY 6 [facility] W/BIOPSY INC INC SINGLE/MU LTIPLE ANES 47983 COMMUNITY FEEBACK LOWER 6 ANESTH REE INTESTINE OF THE [place] [address] [facility]INS SURG 6 [facility] PATHOLOGY INC INC GROSS&MATY ROSCOPIC EXAM O2 CONC 1 E1390 DAREK WU DEL PORT 6 HOME CHAGO 85%/>02 MEDICAL CONC AT [facility] FLW RATE PRTBLE E0431 DAREK WU GASEOUS 6 HOME CHAGO O2 SYS MEDICAL RENT; EQUIPME FLWMTR HUMIDFR&M ASK ADMN SET A7003 YOUR YOUR SM VOL 6 PHARMACY PHARMACY NONFILTR [facility] PNEUMAT NEBULIZR DISPBL PHRM Q0513 YOUR YOUR DISPENSIN 6 PHARMACY PHARMACY G [employer] INHALATIO N RX; PER 30 DAYS AREO MASK A7015 YOUR YOUR USED W/ 6 PHARMACY PHARMACY DME [employer] ALBUTEROL J7620 YOUR YOUR TO 2.5 6 PHARMACY PHARMACY [employer] IPRATROPI UM BROM TO 0.5 MG XTRNL ECG 16511 [facility] & 48 HR 6 [facility] [place] [address] [facility] PARATHORM 6 [facility] ONE INC INC 25 21166 [facility] HYDROXY 6 [facility] INCLUDES INC INC FRACTIONS IF PERFORMED COMPREHEN 74066 [facility] SIVE 6 [facility] METABOLIC INC INC PANEL COLLECTIO 53002 [facility] N VENOUS 6 [facility] BLOOD INC INC VENIPUNCT URE EXTERNAL 29782 [facility] ECG 6 [facility] SCANNING INC INC ANALYSIS REPORT COMPREHEN 15823 [facility] SIVE 6 [facility] [place] [address] [facility] INFUSION 6 [facility] THERAPY/P INC INC ROPHYLAXI S /DX 1ST TO 1 HR ECG 66628 [facility] ROUTINE 6 [facility] ECG INC INC W/LEAST 12 LDS TRCG ONLY W/O I&R ECG 83098 [facility] ROUTINE 6 [facility] ECG INC INC W/LEAST 12 LDS TRCG ONLY W/O I&R RADIOLOGI 18152 [facility] C EXAM 6 [facility] CHEST 2 INC INC VIEWS FRONTAL&L ATERAL ECG 96994 ROS[facility] ELDER ROUTINE 6 [facility] W/LEAST P 12 LDS I&R ONLY URNLS DIP 61882 [facility] 6 [facility] STICK/TAB INC INC [place] [address] [facility] TROPONIN 6 [facility] QUANTITAT INC INC CLAUDE PRTBLE E0431 DAREK MCGOWAN GASEOUS 6 HOME MAR O2 SYS MEDICAL RENT; EQUIPME FLWMTR HUMIDFR&M ASK O2 CONC 1 E1390 DAREK MCGOWAN DEL PORT 6 HOME MAR 85%/>02 MEDICAL CONC AT [facility] FLW RATE BASIC 49238 ROS[facility] METABOLIC 6 [facility] PANEL INC INC CALCIUM TOTAL ECG 95969 ROSS KYARAYISEL ROUTINE 6 [facility] W/LEAST P 12 LDS I&R ONLY ECG 96043 [facility] ROUTINE 6 [facility]OSP ECG INC INC W/LEAST 12 LDS TRCG ONLY W/O I&R BLOOD 02252 [facility] COUNT 6 [facility] COMPLETE INC INC AUTO&AUTO DIFRNTL WBC COLLECTIO 90801 ROSS ROSS N VENOUS 6 [facility] BLOOD INC INC VENIPUNCT URE ALBUTEROL J7620 YOUR YOUR TO 2.5 6 PHARMACY PHARMACY [employer] IPRATROPI UM BROM TO 0.5 MG PHRM Q0513 YOUR YOUR DISPENSIN 6 PHARMACY PHARMACY G [employer] INHALATIO N RX; PER 30 DAYS ADMN SET A7003 YOUR YOUR SM VOL 6 PHARMACY PHARMACY NONFILTR [employer] [facility] PNEUMAT NEBULIZR DISPBL RADIOLOGI 70360 [facility] C EXAM 6 [facility] CHEST 2 INC INC VIEWS FRONTAL&L ATERAL PRESSURIZ 90945 [facility] ED/NONPRE 6 [facility]OS[facility] SSURIZED INC INC INHALATIO N TREATMENT NONINVASI 29426 [facility] VE 6 [facility] EAR/PULSE INC INC OXIMETRY SINGLE DETER URETHROCY 23038 [place] [facility] ALL STOGRAPHY 6 MEDICAL VOIDING IMAGING RS&I ASS LOCM Q9965 [facility] 100-199 6 [facility] MG/ML INC INC IODINE CONCENTRA TION PER ML PRTBLE E0431 DAREK VOGTMARLENYSaida GASEOUS 6 HOME LISA O2 SYS MEDICAL RENT; EQUIPIN FLWMTR HUMIDFR&M ASK O2 CONC 1 E1390 DAREK SHASHY DEL PORT 6 HOME LISA 85%/>02 MEDICAL CONC AT [facility] FLW RATE AREO MASK A7015 YOUR YOUR [...] 6 HOME MOL O2 SYS MEDICAL RENT; EQUIPIN FLWMTR HUMIDFR&M ASK O2 CONC 1 E1390 DAREK O'IRA DEL PORT 6 HOME MOL 85%/>02 MEDICAL CONC AT [facility] FLW RATE MRI 32896 CENTR[facility] GIRON MAR SPINAL 6 RADIOLOGY CANAL ASSOC THORACIC W/O CONTRAST MATRL MRI 26350 C[facility] GIRON MAR SPINAL 6 RADIOLOGY CANAL ASSOC LUMBAR W/O CONTRAST MATERIAL NON-INVAS [address] MEME PHYSIOLOG MEDICAL IC STD G EXTREMITY ART 2 LEVEL DUP-SCAN 88404 [facility] 6 [facility] MEME ART/ARTL MEDICAL BPGS G COMPL BI STUDY DUP-SCAN [address] [facility] ART/ARTL BPGS COMPL BI STUDY NON-INVAS [address] PHYSIOLOG IC STD EXTREMITY ART 2 LEVEL DUP-SCAN 96362 NEPHROLOG NEEL ARTL JG 6 Y THO ABDL/PEL/ ASSOCIATE SCROT&/RP S OF BERRY R ORGN COM PRTBLE E0431 DAREK KERN GASEOUS 6 HOME SHANNA O2 SYS MEDICAL RENT; EQUIPME FLWMTR HUMIDFR&M ASK O2 CONC 1 E1390 DAREK KERN DEL PORT 6 HOME SHANNA 85%/>02 MEDICAL CONC AT [facility] FLW RATE LALA 02629 ROS[facility] GILES POST-VOID 6 [facility] RESIDUAL P URINE&/BL ADDER CAP URNLS DIP 99638 [facility] DE SOUZA [address] [facility] STICK/TAB [place] [address] [facility] ABDOMEN & 6 [facility] PELVIS INC INC W/O CONTRAST MATERIAL CULTURE 26900 [facility] HAWKINS BACTERIAL 6 [facility] BLOOD INC INC AEROBIC W/ID ISOLATES BLOOD 36085 [facility] COUNT 6 [facility] COMPLETE INC INC AUTO&AUTO DIFRNTL WBC INJECTION J2405 ROSS STATELESS 6 [facility] H[facility] ESOTERIC ONDANSETR INC LABORATOR ON HCL I PER 1 MG THERAPEUT 11889 [facility] IC 6 [facility] INJECTION [place] [address] [facility] INFUSION 6 [facility] THERAPY/P INC INC ROPHYLAXI S /DX 1ST TO 1 [place] [address] [facility] LACTATE 6 [facility] INC INC CULTURE 15888 [facility] BACTERIAL 6 [facility] INC INC QUANTTATI VE COLONY COUNT URINE SLCTV 78086 [facility] CATH 6 [facility] CAROTID/I MEDICAL NNOM ART G ANGIO XTRCRANL ART PRTBLE E0431 [facility] GASEOUS 6 HOME IZA O2 SYS MEDICAL RENT; [facility] HUMIDFR&M ASK O2 CONC 1 E1390 DAREK ESCOBEDO DEL PORT 6 HOME IZA 85%/>02 [facility] FL[facility]ATE KIDNEY 79752 [place] [facility] ALL IMG 6 MEDICAL MORPHOLOG IMAGING Y ASS VASCULAR FLOW 1 W/RX URNLS DIP 08377 ROSS GILES 6 [facility] LET RGNT P NON-AUTO W/O MICRSCP CALCIUM 13473 [facility] TOTAL 6 [facility] INC INC COLLECTIO 08683 [facility] N VENOUS 6 [facility] [place] [address] [facility]WK[facility] FREE 6 [facility] [address] [facility] THYROID 6 [facility] STIMULATI INC INC NG HORMONE TSH O2 CONC 1 E1390 DAREK BELTRAN PORT 6 HOME HOME 85%/>02 MEDICAL [facility]ICAL [facility] FLW RATE PRTBLE E0431 DAREKDONNA OSWALD GASEOUS 6 HOME HOME O2 SYS MEDICAL MEDICAL RENT; EQUIPME EQUIPME FLWMTR HUMIDFR&M ASK CT THORAX 03516 [facility] W/O 6 [facility] CONTRAST INC INC MATERIAL DUPLEX 12395 [facility] HAWKINS SCAN 6 [facility] EXTRACRAN [place] [address] [facility]INS INFUSION 6 [facility] THERAPY/P INC INC ROPHYLAXI S /DX 1ST TO 1 HR CTA ABDL 50145 [facility]&BI 6 MEDICAL NOHEMI ILIOFEM IMAGING W/CONTRAS ASS T&[place] [address] [facility] INFUSION 6 [facility] THERAPY INC INC PROPHYLAX IS/DX EA HOUR O2 CONC 1 E1390 DAREKDONNA BELTRAN PORT 6 HOME SHANNA 85%/>02 [facility] FLW [facility]ATE PRTBLE E0431 DAREKDONNA KERN GASEOUS 6 HOME SHANNA O2 SYS MEDICAL RENT; EQUIPME FLWMIR HUMIDFR&M ASK COMPREHEN 74940 [facility] SIVE 5 [facility] METABOLIC INC INC PANEL BLOOD 31629 [facility] COUNT 5 [facility] COMPLETE INC INC AUTO&AUTO DIFRNTL WBC RADIOLOGI 66965 [facility] C EXAM 5 [facility] CHEST 2 INC INC VIEWS FRONTAL&L [...] PORT 5 HOME 85%/>02 MEDICAL CONC AT [facility] FLW RATE RADIOLOGI 18792 ROS[facility] HAWKINS C EXAM 5 [facility] CHEST 2 INC INC VIEWS FRONTAL&L ATERAL ECG 21054 [facility] ROUTINE 5 [facility] ECG [...] HOME HOME O2 SYS MEDICAL MEDICAL RENT; EQUIPIN EQUIPME FLWMTR HUMIDFR&M ASK O2 CONC 1 E1390 DAREK OSWALD DEL PORT 5 HOME HOME 85%/>02 MEDICAL MEDICAL CONC AT [facility] FLW RATE NONCOVERE A9270 [facility] ITEM OR 5 HOSPITAL HOSPITAL SERVICE NONCOVERE A9270 [facility] ITEM OR 5 [facility]PITAL HOSPITAL SERVICE EPHYS 68919 [facility] EVAL 5 [facility] W/ABLATIO MEDICAL N G SUPRAVENT ARRHYTHMI A RADEX 53478 [place] BE[facility] ESOPHAGUS 5 MEDICAL ELISSA IMAGING ASS HEPATOBIL 22833 [place] CLEO IARY SYST 5 MEDICAL NOHEMI IMAGING IMAGING INCLUDING ASS GALLBLADD ER O2 CONC 1 E1390 DAREK O'IRA DEL PORT 5 HOME MOL 85%/>02 MEDICAL CONC AT [facility] FLW RATE PRTBLE E0431 DAREK O'IRA GASEOUS 5 HOME MOL O2 SYS MEDICAL RENT; EQUIPME FLWMTR HUMIDFR&M ASK XTRNL ECG 12661 ROSS ROSS & 48 HR 5 [facility] RECORDING INC INC XTRNL ECG 07914 ROSS ELDER 5 [facility] S RHYTHM P W/I&R UP TO 48 HRS ECG 69996 ROSS ELDER ROUTINE 5 [facility] W/LEAST P 12 LDS I&R ONLY ECHO 31123 ROS[facility] HAWKINS TTHRC R-T 5 [facility] HOSP 2D INC INC W/WOM-MOD E COMPL SPEC&COLR D INSJ 83251 ROSS GILES NON-NDWEL [address] [facility] BLADDER P CATHETER RADIOLOGI 71047 [facility] ALL C EXAM 5 MEDICAL CHEST 2 IMAGING VIEWS ASS FRONTAL&[place] [address] [place] [facility] ALL TRACT UPR 5 MEDICAL W/SM INT IMAGING W/MULT ASS SERIAL IMAGES RADIOLOGI 57912 [place] [facility] ALL C 5 MEDICAL EXAMINATI IMAGING ON CHEST ASS SINGLE VIEW FRONTAL THERAPEUT 39337 [facility]WK[facility] IC 5 [facility] INJECTION INC INC IV PUSH EACH NEW DRUG PHRM Q0513 YOUR YOUR DISPENSIN 5 PHARMACY PHARMACY G [employer] INHALATIO N RX; PER 30 DAYS ALBUTEROL J7620 YOUR YOUR TO 2.5 5 PHARMACY PHARMACY [employer] IPRATROPI UM BROM TO 0.5 MG PRTBLE E0431 DAREK OSWALD GASEOUS 5 HOME HOME O2 SYS MEDICAL MEDICAL RENT; EQUIPME EQUIPME FLWMIR HUMIDFR&M ASK O2 CONC 1 E1390 DAREK OSWALD DEL PORT 5 HOME HOME 85%/>02 MEDICAL MEDICAL CONC AT EQUIPME EQUIPME PRSC FLW RATE DIAGNOSTI G0206 [facility] HAWKINS C 5 [facility] MAMMOGRAP INC INC HY INCL CAD WHEN PERF; UNI US BREAST 07100 ROSS HAWKINS UNI REAL 5 [facility] TIME INC INC WITH IMAGE COMPLETE US BREAST 63658 [facility] UNI REAL 5 MEDICAL MEDICAL TIME IMAGING IMAGING WITH ASS ASS IMAGE LIMITED COLONOSCO 48776 [facility] TOD PY 5 PHYSICIAN W/BIOPSY S GROUP SINGLE/MU LTIPLE EGD 83860 [facility] TOD TRANSORAL 5 PHYSICIAN BIOPSY S GROUP SINGLE/[place] [address] [facility] INFUSION 5 [facility] THERAPY INC INC PROPHYLAX IS/DX EA HOUR O2 CONC 1 E1390 DAREK OSWALD DEL PORT 5 HOME HOME 85%/>02 MEDICAL MEDICAL CONC AT EQUIPME EQUIPME PRSC FLW RATE PRTBLE E0431 DAREK OSWALD GASEOUS 5 HOME HOME O2 SYS MEDICAL MEDICAL RENT; EQUIPME EQUIPME FLWMTR HUMIDFR&M ASK LALA 38219 [facility] G[facility] POST-VOID 5 [facility] RESIDUAL P URINE&/BL ADDER CAP PRTBLE E0431 DAREK OSWALD GASEOUS 5 HOME HOME O2 SYS MEDICAL MEDICAL RENT; EQUIPME EQUIPME FLWMTR HUMIDFR&M ASK O2 CONC 1 E1390 DAREK BELTRAN PORT 5 HOME HOME 85%/>02 MEDICAL MEDICAL CONC AT EQUIPME EQUIPME PRSC FLW RATE POLYSOM 28849 BERRYTONY GHOSHDAISY MAR 6/>YRS 5 SLEEP 4/> NEUROSCIE ADDL NCES CENT RERE ATTND POLYSOM 57879 ROS[facility] HAWKINS 6/>YRS 5 [facility] SLEEP 4/> INC INC ADDL RERE ATTND PRTBLE E0431 DAREK OSWALD GASEOUS 5 HOME HOME O2 SYS MEDICAL MEDICAL RENT; EQUIPME EQUIPME FLWMTR HUMIDFR&M ASK O2 CONC 1 E1390 DAREK OSWALD DEL PORT 5 HOME HOME 85%/>02 MEDICAL MEDICAL CONC AT EQUIPME [place] [address] [facility] LAMMARIA L TAYLOR ACTIVTD 5 NE [...] AT EQUIPME EQUIPME PRSC FLW RATE THERAPEUT 43986 [facility]WKINS IC 5 [facility] PROPHYLAC INC INC TIC/DX INJECTION SUBQ/IM RADIOLOGI 78696 BALDEV LEMUS C EXAM 5 MEDICAL ELISSA CHEST 2 IMAGING VIEWS ASS FRONTAL&L ATERAL ECG 84524 ROSS VASQUEZ JR ROUTINE 5 [facility] W[facility]LEAST P 12 LDS I&R ONLY [...] PER SESS TO 2 PER DAY DUP-SCAN 87714 [facility]WKINS LXTR 4 [facility] ART/ARTL INC INC BPGS COMPL BI STUDY XTRNL ECG 40533 ROS[facility] HAWKINS & 48 HR 4 [facility] RECORDING INC INC EXTERNAL 47174 [facility] HAWKINS ECG 4 [facility] SCANNING INC INC ANALYSIS REPORT NON-INVAS 31216 BALDEV GALLO CLAUDE 4 MEDICAL NOHEMI PHYSIOLOG IMAGING IC STUDY ASS EXTREMITY 3 LEVLS PRTBLE E0431 DAREK DAREK GASEOUS 4 HOME HOME O2 SYS MEDICAL MEDICAL RENT; EQUIPME EQUIPME FLWMTR HUMIDFR&M ASK O2 CONC 1 E1390 DAREK OSWALD DEL PORT 4 HOME HOME 85%/>02 MEDICAL MEDICAL CONC AT EQUIPME EQUIPME [facility] FLW RATE ALBUTEROL J7620 YOUR YOUR TO 2.5 4 PHARMACY PHARMACY [employer] IPRATROPI UM BROM TO 0.5 MG PHRM Q0513 YOUR YOUR DISPENSIN 4 PHARMACY PHARMACY [employer] INHALATIO N RX; PER [address] THORAX 06323 [facility] HAWKINS W/O 4 [facility] CONTRAST INC INC MATERIAL PRTBLE E0431 DAREK OSWALD GASEOUS 4 HOME HOME O2 SYS MEDICAL MEDICAL RENT; EQUIPME EQUIPME FLWMTR HUMIDFR&M ASK O2 CONC 1 E1390 DAREK OSWALD DEL PORT 4 HOME HOME 85%/>02 MEDICAL MEDICAL CONC AT EQUIPME EQUIPME [facility] FLW RATE ALBUTEROL J7620 YOUR YOUR TO 2.5 4 PHARMACY PHARMACY [employer] IPRATROPI UM BROM TO 0.5 MG PHRM Q0513 YOUR YOUR DISPENSIN 4 PHARMACY PHARMACY [employer] INHALATIO N RX; PER 30 DAYS PRTBLE E0431 DAREK OSWALD GASEOUS 4 HOME HOME O2 SYS MEDICAL MEDICAL RENT; EQUIPME EQUIPME FLWMTR HUMIDFR&M ASK O2 CONC 1 E1390 DAREK OSWALD DEL PORT 4 HOME HOME 85%/>02 MEDICAL MEDICAL CONC AT E[facility] IN[facility] J0696 [facility] 4 PHYSICIAN PHYSICIAN CEFTRIAXO S GROUP S GROUP NE SODIUM PER 250 MG THERAPEUT 59922 [facility] IC 4 PHYSICIAN PHYSICIAN PROPHYLAC S GROUP S GROUP TIC/DX INJECTION SUBQ/IM THERAPEUT 11617 [facility] IC 4 PHYSICIAN PHYSICIAN PROPHYLAC S GROUP S GROUP TIC/DX INJECTION SUBQ/IM INJECTION J1040 [facility] 4 PHYSICIAN PHYSICIAN METHYLPRE S GROUP S GROUP DNISOLONE ACETATE 80 MG INJECTION J0696 [facility] 4 PHYSICIAN PHYSICIAN CEFTRIAXO S GROUP S GROUP NE SODIUM PER 250 MG ECG 71813 ROSS VASQUEZ JR ROUTINE 4 [facility] ECG HOSPITAL W/LEAST P 12 LDS I&R ONLY PRTBLE E0431 DAREK OSWALD GASEOUS 4 HOME HOME O2 SYS MEDICAL MEDICAL RENT; EQUIPME EQUIPME FLWMTR HUMIDFR&M ASK O2 CONC 1 E1390 DAREK OSWALD DEL PORT 4 HOME HOME 85%/>02 MEDICAL MEDICAL CONC AT EQUIPME EQUIPME PRSC FLW RATE RADIOLOGI 84052 IOWA CLEO C EXAM 4 MEDICAL NOHEMI CHEST 2 IMAGING VIEWS ASS FRONTAL&L ATERAL DUP-SCAN 69617 ROSS HAWKINS XTR VEINS 4 [facility] INC INC UNILATERA L/LIMITED STUDY ECG 97237 ALFARIS ALFARIS ROUTINE 4 [facility] ECG W/LEAST 12 LDS I&R ONLY BRNCDILAT 16119 JERROD ELDER RSPSE 4 IZA IZA SPMTRY PRE&POST- BRNCDILAT ADMN GAS 50636 ROSS HAWKINS DILUT/WAS 4 [facility] HOUT LUNG INC INC VOL W/WO DISTRIB VENT&V GAS 72840 JERROD BESSON DILUT/WAS 4 IZA IZA HOUT LUNG VOL W/[place] DISTRIB VENT&[place] [address] BESSON BESSON DIFFUSING 4 IZA IZA CAPACITY APPL 50928 ROSS HAWKINS MODALITY 4 [facility] 1/> AREAS INC INC ULTRASOUN D EA 15 MIN APPL 00235 ROSS HAWKINS MODALITY 4 [facility] 1/> AREAS INC INC IONTOPHOR ESIS EA 15 MIN THERAPEUT 40641 ROSS HAWKINS IC PX 1/> 4 [facility] AREAS INC INC EACH 15 MIN EXERCISES E-STIM G0283 ROSS HAWKINS 1/> AREAS 4 [facility] OTH THAN INC INC WND CARE PART TX PLAN E-STIM G0283 ROSS HAWKINS 1/> AREAS 4 [facility] OTH THAN INC INC WND CARE PART TX PLAN APPL 18585 ROSS HAWKINS MODALITY 4 [facility] 1/> AREAS INC INC IONTOPHOR ESIS EA 15 MIN PHYSICAL 75343 ROSS HAWKINS THERAPY 4 [facility] EVALUATIO INC INC N APPL 21108 ROSS HAWKINS MODALITY 4 [facility] 1/> AREAS INC INC ULTRASOUN D EA 15 MIN ESOPHAGOS 43401 CARMENZA HERR COPY 4 FRANKIE FRANKIE FLEXIBLE GUIDE WIRE DILATION LARGSC 35967 CARMENZA HERR EXC 4 FRANKIE FRANKIE OVI&/STRP G CORDS/EPI GL MCRSCP/TL SCP ECG 05854 ROSS HAWKINS ROUTINE 4 [facility] ECG INC INC W/LEAST 12 LDS TRCG ONLY W/O I&R RADIOLOGI 49848 ROSS HAWKINS C EXAM 4 [facility] CHEST 2 INC INC VIEWS FRONTAL&L ATERAL RADEX 31672 ROSS HAWKINS ESOPHAGUS 4 [facility] INC INC PHRM Q0513 YOUR YOUR DISPENSIN 4 PHARMACY PHARMACY [employer] INHALATIO N RX; PER 30 DAYS ALBUTEROL J7620 YOUR YOUR TO 2.5 4 PHARMACY PHARMACY [employer] IPRATROPI UM BROM TO 0.5 MG ALBUTEROL J7620 YOUR YOUR TO 2.5 4 PHARMACY PHARMACY [employer] IPRATROPI UM BROM TO 0.5 MG PHRM Q0513 YOUR YOUR DISPENSIN 4 PHARMACY PHARMACY [employer] INHALATIO N RX; PER 30 DAYS HOSPITAL G0463 ROSS HAWKINS OUTPATIEN 4 [facility] T CLIN INC INC VISIT ASSESS & MGMT PT RADIOLOGI 94602 CLEO GALLO C EXAM 3 NOHEMI NOHEMI CHEST 2 VIEWS FRONTAL&L ATERAL ECG 57102 BREEZY TIJERINA ROUTINE 3 MATY MATY ECG W/LEAST 12 LDS I&R ONLY NONCOVERE A9270 [facility] D ITEM OR 3 [facility] SERVICE THER 98108 ROSS HAWKINS PROPH/DX 3 [facility] NJX IV INC INC PUSH SINGLE/1S T SBST/DRUG PRESSURIZ 24136 ROSS HAWKINS ED/NONPRE 3 [facility] SSURIZED INC INC INHALATIO N TREATMENT ECG 49378 BREEZY CARBALLOEY ROUTINE 3 MATY MATY ECG W/LEAST 12 LDS I&R ONLY RHYTHM 81913 ROSS HAWKINS ECG 1-3 3 [facility] LEADS INC INC TRACING ONLY W/O I&R ECG 69966 ROSS HAWKINS ROUTINE 3 [facility] ECG INC INC W/LEAST 12 LDS TRCG ONLY W/O I&R RADIOLOGI 11251 ROSS HAWKINS C 3 [facility] EXAMINATI INC INC ON CHEST SINGLE VIEW FRONTAL PHRM Q0513 YOUR YOUR DISPENSIN 3 PHARMACY PHARMACY [employer] INHALATIO N RX; PER 30 DAYS ALBUTEROL J7620 YOUR YOUR TO 2.5 3 PHARMACY PHARMACY [employer] IPRATROPI UM BROM TO 0.5 MG DUP-SCAN 58700 ROSS HAWKINS LXTR 3 [facility] ART/ARTL INC INC BPGS COMPL BI STUDY SPMTRY 96839 ROSS ROSS W/VC 3 [facility] EXPIRATOR INC INC Y JG W/WO MXML VOL VNTJ RADEX HIP 26205 CLEO CLEO 3 NOHEMI NOHEMI UNILATERA L COMPLETE MINIMUM 2 VIEWS RADEX 26299 CLEO CLEO SPINE 3 NOHEMI NOHEMI LUMBOSACR AL MINIMUM [address] THORAX 96576 ROSS HAWKINS W/O 3 [facility] CONTRAST INC INC MATERIAL 3D 30344 CLEO CLEO RENDERING 3 NOHEMI NOHEMI W/INTERP& POSTPROC DIFF WORK STATION ECG 76236 OSMAR PRASAD ROUTINE 3 III IRAIDA III IRAIDA ECG W/LEAST 12 LDS I&R ONLY RADIOLOGI 08507 CLEO CLEO C 3 NOHEMI NOHEMI [place]AMINATI [place] [address] CLEO CLEO HEAD/BRAI 3 NOHEMI NOHE[place] [address] CLEO CLEO RETROPERI 3 NOHEMI NOHEMI TONEAL REAL TIME W/IMAGE COMPLETE SBSQ 23426 JERROD ELDER NURSING 3 IZA IZA FACILITY CARE/DAY E/M STABLE 10 MIN SBSQ 45176 JERROD SPARROWSON NURSING 3 IZA IZA FACILITY CARE/DAY E/M STABLE 10 MIN RADIOLOGI 92998 CLEO CLEO C EXAM 3 NOHEMI NOHEMI CHEST 2 VIEWS FRONTAL&L ATERAL RADEX 93358 CLEO CLEO ABDOMEN 1 3 NOHEMI NOHEMI ANTEROPOS TERIOR VIEW SBSQ 04097 JERROD ELDER NURSING 3 IZA IZA FACILITY CARE/DAY E/M STABLE 10 MIN US SOFT 23963 CELO CLEO TISSUE 3 NOHEMI NOHEMI HEAD & [place] [address] CLEO CLEO ABDOMINAL 3 NOHEMI NOHEMI REAL TIME W/IMAGE DOCUMENTA TION RADIOLOGI 55861 CLEO CLEO C EXAM 3 NOHEMI NOHEMI CHEST 2 VIEWS FRONTAL&L ATERAL ECHO 07814 MCKEMIE MCKEMIE TTHRC R-T 3 JR IRAIDA JR IRAIDA 2D W/WOM-MOD E COMPL SPEC&COLR D RADIOLOGI 10691 ROSS HAWKINS C EXAM 3 [facility] CHEST 2 INC INC VIEWS FRONTAL&L ATERAL ECG 69489 JERROD ELDER ROUTINE 3 IZA IAZ ECG W/LEAST 12 LDS W/I&R RADIOLOGI 61507 CORRIE CORRIE C 3 RHO RHO EXAMINATI ON CHEST SINGLE VIEW FRONTAL RADIOLOGI 17490 SAMSON SAMSON C 3 TIFFANIE TIFFANIE EXAMINATI ON CHEST SINGLE VIEW FRONTAL RADIOLOGI 92255 CORRIE CORRIE C 3 RHO RHO EXAMINATI ON CHEST SINGLE VIEW FRONTAL CT THORAX 43217 CLEO CLEO W/O 3 NOHEMI NOHEMI CONTRAST MATERIAL ECHO 42888 MERLENE MUB MERLENE MUB TTHRC R-T 3 2D W/WOM-MOD E COMPL SPEC&COLR D ECG 27927 JERONIMO DON ROUTINE 3 ECG W/LEAST 12 LDS I&R ONLY INTUBATIO 75833 JERONIMO DON N 3 ENDOTRACH EAL EMERGENCY PROCEDURE CRITICAL 28727 MOAMMAR MOAMMAR CARE 3 NASIMA NASIMA ILL/INJUR ED PATIENT INIT 30-74 MIN CRITICAL 59580 JERONIMO DON CARE 3 ILL/INJUR ED PATIENT ADDL 30 MIN ECHO 40376 ANJUR-REANNA ANJUR-REANNA TTHRC R-T 3 ALI GOMEZ ALI GOMEZ 2D W/WOM-MOD E COMPL SPEC&COLR D ECG 64644 ANJUR-REANNA ANJUR-REANNA ROUTINE 3 ALI GOMEZ ALI GOMEZ ECG W/LEAST 12 LDS I&[place] [address] HAJIBRAHI HAJIBRAHI ABDOMEN & 3 M SARAH M SARAH PELVIS W/O CONTRAST MATERIAL RADIOLOGI 20999 LURDES LURDES C 3 ANASTACIA ANASTACIA EXAMINATI ON CHEST SINGLE VIEW FRONTAL ECG 93235 ALBERT IZA ALBERT IZA ROUTINE 3 ECG W/LEAST 12 LDS I&R ONLY ECG 43310 DELIA DELIA ROUTINE 3 MATY MATY ECG W/LEAST 12 LDS I&R ONLY RADIOLOGI 54737 WESTERFIE WESTERFIE C EXAM 3 LD IV A LD IV A CHEST 2 VIEWS FRONTAL&L ATERAL ECG 30009 JERROD SPARROWSON ROUTINE 3 IZA IZA ECG W/LEAST 12 LDS I&R ONLY RADIOLOGI 38291 CLEO CLEO C 3 NOHEMI NOHEMI EXAMINATI ON CHEST SINGLE VIEW FRONTAL ECHO 08126 MCKEMIE MCKEMIE TTHRC R-T 3 JR IRAIDA JR IRAIDA 2D W/WOM-MOD E COMPL SPEC&COLR D ECG 47434 BREEZY TIJERINA ROUTINE 3 MATY MATY ECG W/LEAST 12 LDS I&R ONLY RADIOLOGI 12454 CLEO CLEO C 3 NOHEMI NOHEMI EXAMINATI ON CHEST SINGLE VIEW FRONTAL INTUBATIO 43684 BREEZY TIJERINA N 3 MATY MATY ENDOTRACH EAL EMERGENCY PROCEDURE CONT 9671 ROSS HAWKINS INVASIVE 3 [facility] HOSP MECH VENT INC INC < 96 CONSECUTI VE HOURS INSERTION 9604 ROSS HAWKINS OF 3 [facility] ENDOTRACH INC INC EAL TUBE CRITICAL 63412 BREEZY [facility] CARE 3 MATY MATY ILL/INJUR ED PATIENT ADDL 30 MIN CRITICAL 07962 BREEZY [facility] 3 MATY MATY ILL/INJUR ED PATIENT INIT 30-74 MIN ALBUTEROL J7620 YOUR YOUR TO 2.5 3 PHARMACY PHARMACY [employer] IPRATROPI UM BROM TO 0.5 MG PHRM Q0513 YOUR YOUR DISPENSIN 3 PHARMACY PHARMACY [employer] INHALATIO N RX; PER 30 DAYS RADEX 17288 CLEO CLEO FOOT 3 NOHEMI NOHEMI COMPLETE MINIMUM 3 VIEWS THERAPEUT 66129 HARPEL HARPEL IC 3 STEFANIE STEFANIE PROPHYLAC TIC/DX INJECTION SUBQ/IM INJECTION J1380 HARPEL HARPEL 3 STEFANIE STEFANIE ESTRADIOL VALERATE UP TO 10 MG INJECTION J1380 HARPEL HARPEL 3 STEFANIE STEFANIE ESTRADIOL VALERATE UP TO 10 MG THERAPEUT 82412 HARPEL HARPEL IC 3 STEFANIE STEFANIE PROPHYLAC TIC/DX INJECTION SUBQ/IM ALBUTEROL J7620 YOUR YOUR TO 2.5 2 PHARMACY PHARMACY MG & I[place]ATROP[place] [address] [place] [address] CLEO CLEO ANGIOGRAP 2 NOHEMI NOHEMI HY HEAD W/CONTRAS T/NONCONT RAST SLCTV 75390 FALLUJI FALLUJI CATHJ 1ST 2 MEME MEME 2ND ORD THRC/BRCH /CPHLC BRNCH ECG 66726 ROSS HAWKINS ROUTINE 2 [facility] HOSP ECG INC INC W/LEAST 12 LDS TRCG ONLY W/O I&R ANGIOGRAP 09125 FALLUJI FALLUJI HY 2 MEME MEME CERVICOCE REBRAL CATHETER RS&I ANGIOGRAP 17437 FALLUJI FALLUJI HY 2 MEME MEME CAROTID CERVICAL BILATERAL RS&I US SOFT 78151 CLEO CLEO TISSUE 2 NOHEMI NOHEMI HEAD & NECK REAL TIME IMGE DOCM RADIOLOGI 76921 CELO CLEO C EXAM 2 NOHEMI NOHEMI CHEST 2 VIEWS FRONTAL&L ATERAL COMPUTER- 57593 ROSS HAWKINS AIDED 2 [facility] DETECTION INC INC SCREENING MAMMOGRAP HY COMPREHEN 71257 ROSS HAWKINS SIVE 2 [facility] METABOLIC INC INC PANEL RADEX 85973 CLEO CLEO ESOPHAGUS 2 [place] [address] LARISA PERES RETROPERI 2 EMERGENCY EMERGENCY TONEAL SERVICES SERVICES REAL TIME W/IMAGE LIMITED COLLECTIO 18558 ROSS ROSS N VENOUS 2 [facility] BLOOD INC INC VENIPUNCT URE SCREENING G0202 ROSS HAWKINS 2 [facility] HOSP MAMMOGRAP INC INC HY HERNÁN INCL CAD WHEN PERFORMD ALBUTEROL J7620 YOUR YOUR TO 2.5 2 PHARMACY PHARMACY MG & IPRATROPI UM BROM TO 0.5 MG ADMN SET A7003 YOUR YOUR SM VOL 2 PHARMACY PHARMACY NONFILTR PNEUMAT NEBULIZR DISPBL BLOOD 34101 HARPEL HARPEL OCCULT 2 STEFANIE STEFANIE PEROXIDAS E ACTV QUAL FECES [address] THORAX 43074 ROSS HAWKINS W/O 2 [facility] CONTRAST INC INC MATERIAL CT THORAX 40114 CLEO CLEO 2 NOHEMI NOHEMI W/CONTRAS T MATERIAL 3D 88701 CLEO CLEO RENDERING 2 NOHEMI NOHEMI W/INTERP& POSTPROC DIFF WORK STATION ADMN SET A7003 YOUR YOUR SM VOL 2 PHARMACY PHARMACY NONFILTR PNEUMAT NEBULIZR DISPBL ALBUTEROL J7620 YOUR YOUR TO 2.5 2 PHARMACY PHARMACY MG & IPRATROPI UM BROM TO 0.5 MG THERAPEUT 33397 HARPEL HARPEL IC 2 STEFANIE STEFANIE PROPHYLAC TIC/DX INJECTION SUBQ/IM THERAPEUT 53729 HARPEL HARPEL IC 2 STEFANIE STEFANIE PROPHYLAC TIC/DX INJECTION SUBQ/IM THERAPEUT 06496 HARPEL HARPEL IC 2 STEFANIE STEFANIE PROPHYLAC TIC/DX INJECTION SUBQ/IM THERAPEUT 83536 HARPEL HARPEL IC 2 STEFANIE STEFANIE PROPHYLAC TIC/DX INJECTION SUBQ/IM CATH PLMT 28510 FALLUJI FALLUJI L HRT & 2 MEME MEME ARTS W/NJX & ANGIO IMG S&I ALBUTEROL J7620 YOUR YOUR TO 2.5 2 PHARMACY PHARMACY [facility] [employer] [facility] IPRATROPI UM BROM TO 0.5 MG THERAPEUT 97725 BRIJESH COLEY R IC 2 AZUL LIANG MD PROPHYLAC TIC/DX INJECTION SUBQ/IM E-STIM G0283 ROSS HAWKINS 1/> AREAS 2 [facility] OTH THAN INC INC WND CARE PART TX PLAN SPMTRY 74711 ROSS HAWKINS W/VC 2 [facility] EXPIRATOR INC INC Y JG W/WO MXML VOL VNTJ APPL 63689 ROSS HAWKINS MODALITY 2 [facility] 1/> AREAS INC INC ULTRASOUN D EA 15 MIN APPLICATI 36681 ROSS HAWKINS ON 2 [facility] MODALITY INC INC 1/> AREAS HOT/COLD PACKS APPL 80496 ROSS HAWKINS MODALITY 2 [facility] 1/> AREAS INC INC ULTRASOUN D EA 15 MIN APPLICATI 51045 ROSS HAWKINS ON 2 [facility] MODALITY INC INC 1/> AREAS HOT/COLD PACKS 3D 85564 ROSS HAWKINS RENDERING 2 [facility] INC INC W/INTERP& POSTPROC DIFF WORK STATION CT THORAX 73933 ROSS HAWKINS W/O 2 [facility] CONTRAST INC INC MATERIAL ECHO 24192 ROSS HAWKINS TTHRC R-T 2 [facility] 2D INC INC W/WOM-MOD E COMPL SPEC&COLR D E-STIM G0283 ROSS HAWKINS 1/> AREAS 2 [facility]OS[facility] OTH THAN INC INC WND CARE PART TX PLAN THERAPEUT 97252 AZUL LIANG IC 2 STEFANIE STEFANIE PROPHYLAC TIC/DX INJECTION SUBQ/IM DUPLEX 72896 ROSS HAWKINS SCAN 2 [facility] EXTRACRAN INC INC IAL ART COMPL BI STUDY THERAPEUT 44580 ROSS HAWKINS IC PX 1/> 2 [facility] AREAS INC INC EACH 15 MIN EXERCISES PHYSICAL 68221 ROSS HAWKINS THERAPY 2 [facility] EVALUATIO INC INC N XTRNL ECG 87219 BESSON BESSON 2 IZA IZA CONTINUOU S RHYTHM W/I&R UP TO 48 HRS EXTERNAL 83299 ROSS HAWKINS ECG 2 [facility] SCANNING INC INC ANALYSIS REPORT XTRNL ECG 29107 ROSS HAWKINS & 48 HR 2 [facility] RECORDING INC INC THERAPEUT 29606 BRIJESH COLEY R IC 2 AZUL LIANG MD PROPHYLAC TIC/DX INJECTION SUBQ/IM ALBUTEROL J7620 YOUR YOUR TO 2.5 2 PHARMACY PHARMACY & [facility] IPRATROPI UM BROM TO 0.5 MG AREO MASK A7015 YOUR YOUR USED W/ 2 PHARMACY PHARMACY [facility] ADMN SET A7003 YOUR YOUR SM VOL 2 PHARMACY PHARMACY NONFILMOSES [facility] PNEUMAT NEBULIZR DISPBL INJECTION J1380 BRIJESH LIANG 2 [facility]UL WATTS ESTRADIOL VALERATE UP TO 10 MG INJECTION J1380 BRIJESH LIANG MD STEFANIE ESTRADIOL VALERATE UP TO [address] THORAX 70799 ROSS HAWKINS W/O 1 [facility] HOSP CONTRAST INC INC MATERIAL 3D 64796 ROSS HAWKINS RENDERING 1 [facility] INC INC W/INTERP& POSTPROC DIFF WORK STATION 3D 70200 [facility] CLEO RENDERING 1 MEDICAL NOHEMI W/INTERP IMAGING & ASS POSTPROCE SS SUPERVISI ON MRI 46522 IOWA CLEO SPINAL 1 MEDICAL NOHEMI CANAL IMAGING LUMBAR ASS W/O CONTRAST MATERIAL ADMN SET A7003 YOUR YOUR SM VOL 1 PHARMACY PHARMACY NONFILTR [employer] PNEUMAT NEBULIZR DISPBL ALBUTEROL J7620 YOUR YOUR TO 2.5 1 PHARMACY PHARMACY [employer] [facility] IPRATROPI UM BROM TO 0.5 MG AREO MASK A7015 YOUR YOUR USED W/ 1 PHARMACY PHARMACY [employer] COM[employer]ER- 41246 [facility] AIDED 1 MEDICAL MEDICAL DETECTION IMAGING IMAGING DX ASS ASS MAMMOGRAP HY NEBULIZER E0570 DAREK OSWALD WITH 1 HOME HOME [facility]PRESSO MEDICAL MEDICAL R EQUIPME EQUIPME NEBULIZER E0570 DAREK OSWALD WITH 1 HOME HOME [facility] MEDICAL MEDICAL R EQUIPME EQUIPME INSJ 12288 ROSS GILES NON-NDWEL [address] [facility] BLADDER P CATHETER CT THORAX 87845 IOWA CLEO W/O 1 MEDICAL NOHEMI CONTRAST IMAGING MATERIAL ASS INJECTION J1380 BRIJESH LIANG 1 [facility] WATTS ESTRADIOL VALERATE UP TO 10 MG 3D 73850 IOWA CLEO RENDERING 1 MEDICAL NOHEMI IMAGING W/INTERP& ASS POSTPROC DIFF WORK STATION REPAIR C1771 ROSS HAWKINS DEVICE 1 [facility] URINARY INC INC INCONTINE [place] W/[place] [address] ROSS HAWKINS INFUSION 1 [facility] THERAPY INC INC PROPHYLAX IS/DX EA HOUR ECG 82151 ROSS HAWKINS ROUTINE 1 [facility] ECG INC INC W/LEAST 12 LDS TRCG ONLY W/O I&R ECG 95347 ROSS ELDER ROUTINE 1 [facility] W/LEAST P 12 LDS I&R ONLY URNLS DIP 83817 ROSS HAWKINS 1 [facility] STICK/TAB INC INC LET REAGENT AUTO MICROSCOP Y ANES 90521 [facility] EXTRAPERI 1 ANESTH MARIJA TONEAL OF THE LWR ABD BLUE W/URINARY TRACT NOS SLING 36826 ROSS HAWKINS OPERATION 1 [facility] STRESS INC INC INCONTINE NCE PRESSURIZ 15002 ROSS HAWKINS ED/NONPRE 1 [facility] SSURIZED [place] [address] ROSS HAWKINS INFUSION 1 [facility] THERAPY/P INC INC ROPHYLAXI S /DX 1ST TO 1 HR NEBULIZER E0570 DAREK OSWALD WITH 1 HOME HOME COMPRESSO MEDICAL MEDICAL R EQUIPME EQUIPME BLOOD 95775 ROSS HAWKINS COUNT 1 [facility] COMPLETE INC INC AUTO&AUTO DIFRNTL WBC COLLECTIO 30748 ROSS HAWKINS N VENOUS 1 [facility] BLOOD INC INC VENIPUNCT URE COMPREHEN 13285 ROSS HAWKINS SIVE 1 [facility] METABOLIC INC INC PANEL LIPID 62533 ROSS HAWKINS PANEL 1 [facility] INC INC BASIC 04000 ROSS HAWKINS METABOLIC 1 [facility] PANEL INC INC CALCIUM TOTAL ADMN SET A7003 YOUR YOUR SM VOL 1 PHARMACY PHARMACY [facility] PNEUMAT NEBULIZR DISPBL PHRM Q0513 YOUR YOUR DISPENSIN 1 PHARMACY PHARMACY G [facility] INHALATIO N RX; PER 30 DAYS ALBUTEROL J7620 YOUR YOUR TO 2.5 1 PHARMACY PHARMACY & [facility] IPRATROPI UM BROM TO 0.5 MG INJECTION J1380 BRIJESH LIANG 1 AZUL PALMER STEFANIE ESTRADIOL VALERATE UP TO 10 MG NEBULIZER E0570 DAREK OSWALD WITH 1 HOME HOME [facility]PRESS[facility] MEDICAL MEDICAL R EQUIPME EQUIPME URNLS DIP 80923 ROSS HAWKINS 1 [facility] STICK/TAB INC INC LET RGNT NON-AUTO W/O MICRSCP NEBULIZER E0570 DAREK OSWALD WITH 1 HOME HOME [facility]PRESS[facility] MEDICAL MEDICAL R EQUIPME EQUIPME ADMN SET A7003 YOUR YOUR SM VOL 1 PHARMACY PHARMACY [facility] PNEUMAT NEBULIZR DISPBL AREO MASK A7015 YOUR YOUR USED W/ 1 PHARMACY PHARMACY [facility] 25 29533 ROSS HAWKINS HYDROXY 1 [facility] INCLUDES INC INC FRACTIONS IF PERFORMED COLLECTIO 60508 ROSS HAWKINS N VENOUS 1 [facility]OS[facility] BLOOD INC INC VENIPUNCT URE CALCIUM 80165 ROSS HAWKINS TOTAL 1 [facility] INC INC CALCIUM 26582 ROSS HAWKINS IONIZED 1 [facility] [place] [address] ROSS HAWKINS THYROXINE 1 [facility] [place] [address] ROSS HAWKINS THYROID 1 [facility] HOS[facility] STIMULATI INC INC NG HORMONE TSH NEBULIZER E0570 DAREK OSWALD WITH 1 HOME MED HOME MED COMPRESSO EQUIP. L EQUIP. L R INJECTION J1380 BRIJESH LIANG 1 AZUL PALMER STEFANIE ESTRADIOL VALERATE UP TO 10 MG ALBUTEROL J7620 YOUR YOUR TO 2.5 1 PHARMACY PHARMACY [facility] IPRATROPI UM BROM TO 0.5 MG ADMN SET A7003 YOUR YOUR SM VOL 1 PHARMACY PHARMACY NONFILTR [facility] PNEUMAT NEBULIZR DISPBL PHRM Q0513 YOUR YOUR DISPENSIN 1 PHARMACY PHARMACY [facility] INHALATIO N RX; PER 30 DAYS NEBULIZER [...] ESTRADIOL VALERATE UP TO 10 MG CREATININ 29383 ROSS ROSS E BLOOD 1 [facility] INC INC CT THORAX 16167 IOWA CLEO 1 MEDICAL NOHEMI W/CONTRAS IMAGING T ASS MATERIAL COLLECTIO 67019 ROSS ROSS N VENOUS 1 [facility] BLOOD INC INC VENIPUNCT URE CALCIUM 53671 ROSS HAWKINS TOTAL 1 [facility] [place] [address] ROSS HAWKINS UREA 1 [facility] NITROGEN INC INC QUANTITAT CLAUDE 3D 87033 IOWA CLEO RENDERING 1 MEDICAL NOHEMI IMAGING W/INTERP& ASS POSTPROC DIFF WORK STATION CALCIUM 20798 ROSS HAWKINS IONIZED 1 [facility] HOSP INC INC NEBULIZER E0570 DAREK OSWALD WITH 1 HOME MED HOME MED COMPRESSO EQUIP. L EQUIP. L R THERAPEUT 41415 BRIJESH LIANG IC 1 [facility] WATTS PROPHYLAC TIC/DX INJECTION SUBQ/IM INJECTION J1380 BRIJESH LIANG 1 AZUL WATTS ESTRADIOL VALERATE UP TO 10 MG CALCIUM 66600 ROSS ROSS TOTAL 1 [facility] [place] [address] ROSS ROSS FREE 1 [facility] THYROXINE INC INC COLLECTIO 92828 ROSS ROSS N VENOUS 1 [facility] BLOOD [facility] [place] [address] ROSS HAWKINS THYROID 1 [facility] HOSP STIMULATI INC INC NG HORMONE TSH ALBUTEROL J7620 YOUR YOUR TO 2.5 1 PHARMACY PHARMACY [facility] IPRATROPI UM BROM TO 0.5 MG ADMN SET A7003 YOUR YOUR SM VOL 1 PHARMACY PHARMACY NONFILTR [facility] PNEUMAT NEBULIZR DISPBL PHRM Q0513 YOUR YOUR DISPENSIN 1 PHARMACY PHARMACY [facility] [employer] [facility] INHALATIO N RX; PER 30 DAYS NEBULIZER E0570 DAREK OSWALD WITH 1 HOME MED HOME MED COMPRESSO EQUIP. L EQUIP. L R [facility]OSP[facility] [address] [facility] DISCHARGE 1 DON DON DAY MANAGEMEN T 30 MIN/< INITIAL 09082 [facility] 1 DON DON CARE/DAY 50 MINUTES ECG 02618 ROSS ELDER ROUTINE 1 [facility] W/LEAST P 12 LDS I&R ONLY ECG 47735 LARISA TIJERINA ROUTINE 1 EMERGENCY MATY ECG SERVICES W/LEAST 12 LDS I&R ONLY INJECTION J1380 BRIJESH LIANG 1 [facility] WATTS ESTRADIOL VALERATE UP TO 10 MG THERAPEUT 39228 BRIJESH LIANG IC 1 [facility] WATTS PROPHYLAC TIC/DX INJECTION SUBQ/IM NEBULIZER E0570 DAREK OSWALD WITH 1 HOME MED HOME MED COMPRESSO EQUIP. L EQUIP. L R US BONE 63845 BRIJESH LIANG DENSITY 0 AZUL WATTS LALA & INTERP PERIPH ANY METHO INJECTION J0970 BRIJESH LIANG 0 AZUL WATTS ESTRADIOL VALERATE UP [place] [address] [place] [address] ROSS HAWKINS FREE 0 [facility] THYROXINE INC INC COLLECTIO 00616 [facility] N VENOUS 0 [facility] BLOOD INC INC VENIPUNCT URE CALCIUM 58905 [facility] IONIZED 0 [facility] INC INC US SOFT 97608 [facility] TISSUE 0 MEDICAL NOHEMI HEAD & IMAGING [place] [address] [facility] THYROID 0 [facility] STIMULATI INC INC NG HORMONE TSH NEBULIZER E0570 DAREK OSWALD WITH 0 HOME MED HOME MED COMPRESSO EQUIP. L EQUIP. L R CYTP C/V 36958 BIO BIO AUTO THIN 0 REFERNCE REFERNCE LYR LABORATOR LABORATOR PREPJ SCR IES IES MNL RESCR PHYS SCREENING G0202 [facility] 0 MEDICAL NOHEMI MAMMOGRAP IMAGING HY HERÁNN ASS INCL CAD WHEN PERFORMD COMPUTER- 59084 [facility] AIDED 0 [facility]ICAL [facility]MI DETECTION IMAGING ASS SCREENING MAMMOGRAP HY IADNA 38927 BIO BIO NEISSERIA 0 REFERNCE REFERNCE LABORATOR LABORATOR GONORRHOE IES IES AE AMPLIFIED PROBE TQ IADNA 98660 BIO BIO CHLAMYDIA 0 REFERNCE REFERNCE LABORATOR LABORATOR TRACHOMAT IES IES IS AMPLIFIED PROBE TQ 3D 51900 [facility] RENDERING 0 [facility] INC INC W/INTERP& [place] [address] [facility] THYROID 0 [facility] STIMULATI [place] [address] ROS[facility]WKINS FREE 0 [facility] THYROXINE INC INC CALCIUM 45961 ROS[facility] HAWKINS TOTAL 0 [facility] HOSP INC INC DUPLEX 92003 [facility] SCAN 0 MEDICAL NOHEMI EXTRACRAN IMAGING IAL ART ASS COMPL BI STUDY BLOOD 78778 [facility]WK[facility] COUNT 0 [facility]OSP COMPLETE INC INC AUTO&AUTO DIFRNTL WBC COLLECTIO 61632 [facility]WK[facility] N VENOUS 0 [facility] BLOOD INC INC VENIPUNCT URE CT THORAX 51592 [facility] [facility] W/O 0 MEDICAL NOHEMI CONTRAST IMAGING MATERIAL ASS XTRNL ECG 56132 ROS[facility] HAWKINS & 48 HR 0 [facility] RECORDING INC INC ALBUTEROL J7620 YOUR YOUR TO 2.5 0 PHARMACY PHARMACY [facility] IPRATROPI UM BROM TO 0.5 MG ADMN SET A7003 DAREK OSWALD SM VOL 0 HOME MED HOME MED NONFILTR EQUIP. L EQUIP. L PNEUMAT NEBULIZR DISPBL COLLECTIO 94044 [facility]WKINS N VENOUS 0 [facility] BLOOD INC INC VENIPUNCT URE PHARM G0333 YOUR YOUR DISPEN 0 PHARMACY PHARMACY [facility] [employer] RX; INITIAL 30-DAY SUPPLY NEBULIZER E0570 DAREK OSWALD WITH 0 HOME MED HOME MED COMPRESSO [place] [address] [facility] HAWKINS THYROID 0 [facility] HOSP STIMULATI INC INC NG HORMONE TSH INJECTION J0970 BRIJESH LIANG 0 [facility] ESTRADIOL VALERATE UP TO 40 MG [facility] 44296 [facility] DISCHARGE 0 DON DON DAY MANAGEMEN T 30 MIN/< SBSQ 12639 [facility] 0 DON DON CARE/DAY 25 MINUTES SBSQ 54507 [facility] 0 DON DON CARE/DAY 25 MINUTES INITIAL 62995 [facility] 0 DON DON CARE/DAY 50 MINUTES RHYTHM 22767 LARISA AGUILAR BAB ECG 1-3 0 [facility] INTERPRET ATION & REPRT ON ECG 33500 ROSS VASQUEZ DWI ROUTINE 0 [facility] W/LEAST P 12 LDS I&R ONLY INJECTION J0970 BRIJESH LIANG 0 [place] [place] STEFANIE ESTRADIOL VALERATE UP TO 40 MG NON-INVAS 60087 [facility]O CLAUDE 0 MEDICAL NOHEMI PHYSIOLOG IMAGING IC STUDY ASS EXTREMITY 3 LEVLS N-INVAS 67755 [facility] PHYSIOLOG 0 [facility] IC STD INC INC LXTR ART COMPL BI ECHO 61894 [facility] R-T 0 PHYSICIAN MEME 2D S GROUP W/WOM-MOD E COMPL SPEC&COLR D INJECTION J0970 BRIJESH LIANG 0 [facility] ESTRADIOL VALERATE UP [place] [address] [place] [address] [facility]WK[facility] INFUSION 0 [facility] THERAPY/P INC INC ROPHYLAXI S /DX 1ST TO 1 HR CYSTO 47533 [facility] G[facility]ES CALIBRATI 0 LTH SONDRA ON DILAT UROLOGY URTL PSC STRIX/IZA NOSIS ANES 96550 [facility] GLE TRANSURET 0 ANESTH HRAL OF THE W/URETHRO BLUE CYSTOSCOP Y NOS DILAT 24813 [facility] FEMALE 0 [facility] URETHRA INC INC GENERAL/[place] [address] [facility] INFUSION 0 [facility] THERAPY INC INC PROPHYLAX IS/DX EA HOUR INJECTION J0970 BRIJESH LIANG, 0 [place] ESTRADIOL VALERATE UP TO 40 MG URINALYSI 89972 BRIJESH LIANG, S 0 [place] [place] MICROSCOP IC ONLY INJECTION J0970 BRIJESH LIANG 0 [facility] [place] STEFANIE ESTRADIOL VALERATE UP TO 40 MG COLONOSCO 90196 Perla PHILLIPS PY FLX DX 0 JACQUELINE GONZALEZ W/ERIN PALMER PSC SPEC WHEN PFRMD URINALYSI 80110 BRIJESH LIANG, S 0 [facility] [place] MICROSCOP IC ONLY INJECTION J0970 BRIJESH LIANG, 0 [facility] [place] ESTRADIOL VALERATE UP TO [address] THORAX 17064 BALDEV GALLO, W/O 0 MEDICAL [facility]A CONTRAST IMAGING MATERIAL ASSOCIATE S 3D 92542 [place] CLEO, RENDERING 0 MEDICAL CIRA IMAGING W/INTERP& ASSOCIATE POSTPROC S DIFF WORK STATION PULMONARY 22595 RODOLFO NOEL STRESS 0 [facility] TESTING SERV SIMPLE FOUNDATIO FUNCTIONA 13732 [facility] L 0 [facility] RESIDUAL INC INC CAPACITY OR RESIDUAL VOLUME DETER 94600 [facility] MALDISTRI 0 [facility] BJ OF INC INC INSPIRED GAS N WSHOT CURVE DETER 25693 [facility]INS AIRWY 0 [facility] CLOSING INC INC VOL 1 BRTH TSTS BRNCDILAT 10331 [facility] RSPSE 0 [facility] SPMTRY INC INC PRE&POST- BRNCDILAT ADMN CARBON 33898 RODOLFO NOEL MONOXIDE 0 [facility] DIFFW/CAP SERV FOUNDATIO PLETHYSMO 23816 RODOLFO NOEL GRAPY TOT 0 [facility] BDY I&R SERV ONLY FOUNDATIO SIMPLE 84846 BRIJESH LIANG UROFLOMET 0 [facility] [place] RY COMPLX 25377 BRIJESH LIANG CYSTOMETR 0 [facility] [place] O W/VOID PRESS & URETHRAL PROFIL URINLS 47144 BRIJESH LIANG, DIP 0 [facility] [place] STICK/TAB LET REAGNT NON-AUTO MICRSCPY URINLS 50931 BRIJESH LIANG, DIP 0 [facility] [place] STICK/TAB LET REAGNT NON-AUTO MICRSCPY INJECTION J0970 BRIJESH LIANG, 0 [place] [place] ESTRADIOL VALERATE UP TO 40 MG INJECTION J0970 BRIJESH LIANG, 0 [place] [place] ESTRADIOL VALERATE UP TO 40 MG RADIOLOGI 76483 Perla MOSLEY EXAM 0 MEDICAL CIRA CHEST 2 IMAGING VIEWS ASSOCIATE FRONTAL&L S ATERAL ECG 13526 ROSS JERROD, ROUTINE 0 [facility] W/LEAST PROF SERV 12 LDS I&R ONLY ECG 20557 [facility] HAWKINS ROUTINE 0 [facility] ECG INC INC W/LEAST 12 LDS TRCG ONLY W/O I&R PRESSURIZ 67236 ROSS ROSS ED/NONPRE 0 [facility] SSURIZED INC INC INHALATIO N TREATMENT INJECTION J0970 BRIJESH LIANG, 9 [place] [place] ESTRADIOL VALERATE UP TO 40 MG INJECTION J0970 BRIJESH LIANG 9 [place] [place] ESTRADIOL VALERATE UP TO 40 MG CYTP C/V 37894 [facility] AUTO THIN 9 [facility] LYR PREPJ SCR MNL RESCR PHYS IADNA 37611 [facility] CHLAMYDIA 9 [facility] TRACHOMAT IS AMPLIFIED PROBE TQ IADNA 07311 [facility] NEISSERIA 9 [facility] GONORRHOE AE AMPLIFIED PROBE TQ SCREENING 07963 [facility] HAWKINS 9 [facility] MAMMOGRAP INC INC HY BILATERAL COMPUTER- 01544 [facility] HAWKINS AIDED 9 [facility] DETECTION INC INC SCREENING MAMMOGRAP HY INJECTION J0970 Colt GRANT MD ESTRADIOL VALERATE UP TO 40 MG I SI&R 14625 [facility], F/NJX PX 9 PHYSICIAN N[place] DURING S GROUP C-CATHJ VENTR&/AT R ANGRPH I SI&R 21515 [facility], F/NJX PX 9 PHYSICIAN N[place]EM [place] DURING S GROUP C-CATHJ PULM&/OR SELECT INJECTION 87938 [facility], CARDIAC 9 PHYSICIAN [place] CATHJ L S GROUP VENTR/L ATR ANGIOGRAP H L HRT 97159 [facility], CATHETERI 9 PHYSICIAN NADEEM GRTION S GROUP [place] [address] [facility], C-CATHJ 9 PHYSICIAN [place] F/[place] [address] [facility], C-CATHJ 9 PHYSICIAN [place] F/AORTOGR S GROUP APY ECG 36876 [place] MAYELA, ROUTINE 9 LEE [facility] C ECG CLINIC W/LEAST PSC 12 LDS I&R ONLY RADIOLOGI 34705 Perla MOSLEY EXAM 9 [facility] CHEST 2 IMAGING VIEWS ASSOCIATE FRONTAL&L S ATERAL RADIOLOGI 28180 ROSS HAWKINS C EXAM 9 [facility] HOSP CHEST 2 INC INC VIEWS FRONTAL&L ATERAL BLOOD 87066 ROSS HAWKINS COUNT 9 [facility]OSP COMPLETE INC INC AUTO&AUTO DIFRNTL WBC COLLECTIO 16133 ROSS HAWKINS N VENOUS 9 [facility] BLOOD INC INC VENIPUNCT URE COMPREHEN 01281 ROSS HAWKINS SIVE 9 [facility] HOSP METABOLIC INC INC PANEL INJECTION J0970 BRIJESH LIANG, 9 [place] ESTRADIOL VALERATE UP [place] [address] ROSS HAWKINS INFUSION 9 [facility] THERAPY/P INC INC ROPHYLAXI S /DX 1ST TO 1 HR ECHO 08418 ROSS HAWKINS TRANSESOP 9 [facility] HAG R-T INC INC 2D W/PRB IMG ACQUISJ I&R DOP 03164 ROSS HAWKINS ECHOCARD 9 [facility] COLOR [place] [address] ROSS HAWKINS INFUSION 9 [facility] THERAPY INC INC PROPHYLAX IS/DX EA HOUR 3D 63404 AYO HARRINGTON 9 [facility] [place] P IMAGING W/INTERP& ASSOCIATE POSTPROC S DIFF WORK STATION CT THORAX 69658 IOWA KAZ, 9 [facility]ICAL [facility] P W/CONTRAS IMAGING T ASSOCIATE MATERIAL S RADIOLOGI 02803 [facility] MCCURDY Perla EXAM 9 [facility] P CHEST 2 IMAGING VIEWS ASSOCIATE FRONTAL&L S ATERAL ECG 33826 [facility] HAWKINS ROUTINE 9 [facility] ECG INC INC W/LEAST 12 LDS TRCG ONLY W/O I&R RADIOLOGI 03731 [facility] Perla GALLO EXAM 9 [facility] CHEST 2 IMAGING VIEWS ASSOCIATE FRONTAL&L S ATERAL ECG 69225 LARISA TIJERINA, ROUTINE 9 EMERGENCY TIMOTHY S ECG SERVICES W/LEAST 12 LDS ASSOCIATE I&R ONLY S ECHO 67106 [facility] R-T 9 PHYSICIAN NADEEM Simon GROUP W/WOM-MOD E COMPL SPEC&COLR D CREATINE 97574 ROSS HAWKINS KINASE 9 [facility] TOTAL INC INC NATRIURET 88216 [facility] IC 9 [facility] PEPTIDE INC INC BLOOD 52333 [facility] HAWKINS COUNT 9 [facility] COMPLETE INC INC AUTO&[place] [address] ROSS HAWKINS TROPONIN 9 [facility] QUANTITAT INC INC CLAUDE SEDIMENTA 54783 ROSS HAWKINS TION RATE 9 [facility] RBC INC INC NON-AUTOM ATED PRESSURIZ 40721 ROSS HAWKINS ED/NONPRE 9 [facility] SSURIZED INC INC INHALATIO N TREATMENT INJECTION J0970 BRIJESH LIANG, 9 [place] ESTRADIOL VALERATE UP TO 40 MG COMPREHEN 12420 [facility] HAWKINS SIVE 9 [facility] METABOLIC INC INC PANEL CREATINE 22141 ROSS HAWKINS KINASE MB 9 [facility] FRACTION INC INC ONLY INJECTION J0970 BRIJESH LIANG, Colt [place] ESTRADIOL VALERATE UP TO 40 MG RADIOLOGI 41574 PETRA LAMBERT C 9 DON R DON R EXAMINATI ON CHEST SINGLE VIEW FRONTAL INJECTION J0970 BRIJESH LIANG, 9 [place] ESTRADIOL VALERATE UP TO 40 MG OPHTHALMO 12775 TERENCE PRATT, FAUSTINOY 9 PARI YAÑEZ EXTENDED [...] ESTRADIOL VALERATE UP TO 40 MG BLOOD 73679 ROS[facility] HAWKINS COUNT 9 [facility] COMPLETE INC INC AUTO&AUTO DIFRNTL WBC BASIC 85305 ROSS HAWKINS METABOLIC 9 [facility] PANEL INC INC CALCIUM TOTAL URNLS DIP 82001 [facility] HAWKINS 9 [facility] STICK/TAB INC INC LET REAGENT AUTO MICROSCOP Y RADIOLOGI 86448 [place]A Perla GALLO EXAM 9 MEDICAL CIRA CHEST 2 IMAGING VIEWS ASSOCIATE FRONTAL&[place] [address] ROSS HAWKINS THYROID 9 [facility] STIMULATI [place] [address] ROSS HAWKINS THYROID 8 [facility] STIMULATI INC INC NG HORMONE TSH LIPID 17438 ROSS HAWKINS PANEL 8 [facility] INC INC CALCIUM 63194 ROSS HAWKINS TOTAL 8 [facility] INC INC COLLECTIO 86949 ROSS HAWKINS N VENOUS 8 [facility] BLOOD INC INC VENIPUNCT URE INJECTION J1040 PETRA LAMBERT 8 DON R DON R METHYLPRE DNISOLONE ACETATE 80 MG INJECTION J0970 Susannah GRANT MD ESTRADIOL VALERATE UP TO 40 MG INJECTION J0970 Susannah GRANT MD ESTRADIOL VALERATE UP [place] [address] IOWA KAZ, GUIDANCE 8 [facility] [place] P NEEDLE IMAGING PLACEMENT ASSOCIATE IMG S&I S US BREAST 05229 ROSS HAWKINS REAL 8 [facility] TIME INC INC W/IMAGE DOCUMENTA TION CYTP EVAL 88219 PATHOLOGY PATHOLOGY FINE 8 & & NEEDLE CYTOLOGY CYTOLOGY ASPIRATE LAB LAB INTERP & REPORT PUNCTURE 76047 I[place]A FRANK MCCURDYATIO 8 [facility]ICAL [place] P N CYST [place] [address] PATHOLOGY PATHOLOGY SURG 8 & & PATHOLOGY CYTOLOGY CYTOLOGY LAB LAB GROSS&MATY ROSCOPIC EXAM EGD 50181 [place] JENNIFER, TRANSORAL 8 [facility] BIOPSY SERV SINGLE/MU FOUNDATIO LTIPLE SPECIAL 47821 PATHOLOGY PATHOLOGY STAIN 8 & & GROUP 1 CYTOLOGY CYTOLOGY MICROORGA LAB LAB NISMS I&R SPCL STN 09766 PATHOLOGY PATHOLOGY 2 I&R 8 & & EXCPT CYTOLOGY CYTOLOGY MICROORG/ LAB LAB ENZYME/[place] NFS 28155 [facility] HAWKINS THER 8 [facility] PROPH/DX INC INC 1ST >1 HR IV NFUS 65133 ROSS HAWKINS THER 8 [facility] PROPH/DX INC INC EA HR LIPID 56595 ROSS HAWKINS PANEL 8 [facility] INC INC COLLECTIO 06473 ROSS HAWKINS N VENOUS 8 [facility] BLOOD INC INC VENIPUNCT URE SIMPLE 86397 BRIJESH LIANG UROFLOMET 8 [facility] [place] RY COMPREHEN 58748 ROSS HAWKINS SIVE 8 [facility] METABOLIC INC INC PANEL URTL 95124 BRIJESH LIANG, PRESS 8 [facility] [place] PROFILE STDS BLADDER 54115 BRIJESH LIANG PRESSURE 8 [facility] [place] MEASUREME NT DURING FILLING US BREAST 20839 IOWA KAZ REAL 8 MEDICAL [facility] Licea TIME IMAGING W/IMAGE ASSOCIATE DOCUMENTA S TION BASIC 09876 ROSS HAWKINS METABOLIC 8 [facility] PANEL INC INC CALCIUM TOTAL CREATINE 31634 ROSS HAWKINS KINASE MB 8 [facility] FRACTION INC INC ONLY BLOOD 36571 ROSS HAWKINS COUNT 8 [facility] COMPLETE INC INC AUTO&[place] [address] ROSS HAWKINS TROPONIN 8 [facility] QUANTITAT INC INC CLAUDE CREATINE 27312 ROSS ROSS KINASE 8 [facility] TOTAL INC INC RADIOLOGI 84588 ROSS ROSS C EXAM 8 [facility] CHEST 2 INC INC VIEWS FRONTAL&L ATERAL ECG 23579 ROSS ROSS ROUTINE 8 [facility] ECG INC INC W/LEAST 12 LDS TRCG ONLY W/O I&R IAADIADOO 20789 PETRA LAMBERT, 8 XAVI [place] STREPTOCO CCUS GROUP A INJ J0702 PETRA LAMBERT, BETAMETHA 8 [facility] [place] SONE ACETATE & PHOSPHATE 3 MG INJECTION J0970 BRIJESH LIANG, 8 [place] ESTRADIOL VALERATE UP TO 40 MG SCR G0123 [facility] CYTOPATH 8 [facility] CERV/VAG INC INC SCR CYTOTECH UND PHYS SUPV CREATINE 72517 ROSS HAWKINS KINASE MB 8 [facility] FRACTION INC INC ONLY BASIC 35520 ROSS ROSS METABOLIC 8 [facility] PANEL INC INC CALCIUM TOTAL BLOOD 27894 ROSSNIHARIKA HAWKINS COUNT 8 [facility] COMPLETE INC INC AUTO&[place] [address] ROSSNIHARIKA HAWKINS TROPONIN 8 [facility] QUANTITAT INC INC CLAUDE FIBRIN 43875 ROSS ROSS DGRADJ 8 [facility] PRODUCTS INC INC D-DIMER QUAL/SEMI SYLWIA ECG 32154 ROSS HAWKINS ROUTINE 8 [facility] ECG INC INC W/LEAST 12 LDS TRCG ONLY W/O I&R RADIOLOGI 30691 ROSS ROSS C EXAM 8 [facility] CHEST 2 INC INC VIEWS FRONTAL&L ATERAL ECG 62113 ROSS KYARASON, ROUTINE 8 [facility] ECG HOSPITAL W/LEAST PROF SERV 12 LDS I&R ONLY CREATINE 69711 ROSS HAWKINS KINASE 8 [facility] TOTAL INC INC IV NFUS 34784 ROSS HAWKINS THER 8 [facility] PROPH/DX INC INC EA HR ECG 88009 ROSS HAWKINS ROUTINE 8 [facility] ECG INC INC W/LEAST 12 LDS TRCG ONLY W/O I&R BLOOD 49485 ROSS ROSS COUNT 8 [facility] COMPLETE INC INC AUTO&[place] [address] ROSS HAWKINS THER 8 [facility] PROPH/DX INC INC 1ST >1 HR ENTEROLSS 64738 ALLRAN RAO FRING 8 JR, JR, INTSTINAL ROSARIO F ROSARIO F ADHESION SPX THER 52938 ROSS HAWKINS PROPH/DX 8 [facility] NJX EA INC INC SEQL IV PUSH SBST/DRUG BASIC 48238 ROSS ROSS METABOLIC 8 [facility] PANEL INC INC CALCIUM TOTAL ANESTHESI 50460 [facility] Chris SMITH ANESTH ROHAN L INTRAPERI OF THE [place] LOWER ABD W/LAPS NOS INJECTION J2405 [facility] HAWKINS 8 [facility] ONDANSETR INC INC ON HCL PER 1 MG LAPAROSCO 58625 ROSS HAWKINS PY 8 [facility] ENTEROLYS INC INC IS SEPARATE PROCEDURE INJECTION J0970 BRIJESH LIANG, Susannah [place] ESTRADIOL VALERATE UP TO 40 MG COMPUTER- 22318 [facility] [place] [facility] [place] [facility]O MCCURDY 8 FABIENNE Licea DETECTION IMAGING ASSOCIATE SCREENING S MAMMOGRAP HY SCREENING 05520 ROSS HAWKINS 8 [facility] MAMMOGRAP INC INC HY BILATERAL INJECTION J0970 BRIJESH LIANG, 8 [place] ESTRADIOL VALERATE UP TO 40 [place] NFS 41238 ROSS HAWKINS THER 8 [facility] HOSP PROPH/DX INC INC 1ST >1 HR BLOOD 96141 ROSS ROSS COUNT 8 [facility] HOSP COMPLETE INC INC AUTO&AUTO DIFRNTL WBC BASIC 85796 ROSS HAWKINS METABOLIC 8 [facility]OSP PANEL INC INC CALCIUM TOTAL INJECTION J0970 BRIJESH LIANG, 8 [place] ESTRADIOL VALERATE UP TO 40 MG DOPPLER 45113 ROSS HAWKINS ECHOCARD 8 [facility] PULSE INC INC WAVE W/SPECTRA L DISPLAY DOP 18487 ROSS HAWKINS ECHOCARD 8 [facility] COLOR INC INC FLOW VELOCITY MAPPING ECHO 89651 ROSS ROSS TRANSTHOR 8 [facility] HOSP AC R-T 2D INC INC W/WO M-MODE REC COMP RADEX 28226 ROSS HAWKINS SMALL 8 [facility] HOSP INTESTINE INC INC W/MULTIPL E SERIAL IMAGES XTRNL ECG 11365 ROSS HAWKINS & 48 HR 8 [facility] RECORDING INC INC EXTERNAL 72507 ROSS HAWKINS ECG 8 [facility] SCANNING INC INC ANALYSIS REPORT OPHTHALMO 19239 TERENCE PRATT, FAUSTINOY 8 PARI YAÑEZ EXTENDED RETINAL DRAWING I&R 1ST INJECTION J1040 PETRA LAMBERT, 8 XAVI R DON R METHYLPRE DNISOLONE ACETATE 80 MG INJECTION J2250 [address] [place] HCL PER 1 MG INTRDUCR/ C1894 [facility] SHEATH [address] [place] [address] NOT GUID INTRACARD EP NON-LASR GLUCOSE 10923 [facility] QUANTITAT [address] [place] [address] CLAUDE BLOOD XCPT REAGENT STRIP CHLORIDE 47708 [facility] BLD [address] [place] [address] CREATININ 08879 [facility] BLOOD [address] [place] [address] COLLECTIO 02982 [facility] N VENOUS [address] [place] [address] BLOOD VENIPUNCT URE POTASSIUM [address] PLASMA/WH OLE BLOOD SODIUM [address] PLASMA OR WHOLE BLOOD INJECTION 98571 [facility] CARDIAC [address] [place] [address] CATHJ L VENTR/[place] [address] [facility] C-CATHJ [address] [place] [address] F/SLCTV C ANGRPH L HRT 51788 [facility] CATHETERI [address] [place] [address] ZATION RETROGRAD E BRACHIAL PERQ I SI&R 94665 [facility] F/KYX PX [address] [place] [address] DURING C-CATHJ VENTR&/AT R ANGRPH INJECTION J3010 [facility] FENTANYL [address] [place] [address] CITRATE 0.1 MG I SI&R 79223 [facility] F/KYX PX [address] [place] [address] DURING C-CATHJ PULM&/OR SELECT LOCM Q9967 [facility] 300-[address] [place] [address] MG/ML IODINE CONCENTRA TION PER ML BLOOD [address] [address] [facility] UREA [address] [place] [address] NITROGEN QUANTITAT CLAUDE BLOOD [address] PLATELET AUTOMATED INJECTION J0970 BRIJESH LIANG, 8 AZ[place] ESTRADIOL VALERATE UP TO 40 MG RADEX 80138 [facility] MCCURDY, ABDOMEN 8 MEDICAL [facility] Licea COMPL IMAGING W/DCBTS&/ ASSOCIATE ERC VIEWS S RADEX 44141 ROSS HAWKINS ABDOMEN 1 8 [facility] INC INC ANTEROPOS TERIOR VIEW INJECTION J0970 BRIJESH LIANG MD ESTRADIOL VALERATE UP TO 40 MG BLADDER 80656 BRIJESH [place] PRESSURE 8 AZUL LIANG MD MEASUREME NT DURING FILLING SIMPLE 67563 BRIJESH [place] UROFLOMET 8 AZUL LIANG MD RY ANES 48763 [facility] LOWER 8 ANESTH INTESTINE ANESTHESI OF THE A OF THE [place] ENDOS[facility] [place] DIST[place] PL DUODENUM COLSC FLX 32737 ROSS HAWKINS W/RMVL 8 [facility] OF TUMOR [place] [address] ROSS HAWKINS THER 8 [facility] PROPH/DX INC [place] 1ST >1 [place] [address] PATHOLOGY PATHOLOGY SURG 8 & & PATHOLOGY CYTOLOGY CYTOLOGY LAB LAB GROSS&MATY ROSCOPIC EXAM Encounters Encounter Start End Date Code Location Performer Type Date OFFICE 22421 [facility] 7 7 PHYSICIAN T VISIT S GROUP 10 [facility] ROSS - 7 7 [facility] OUTPATIEN INC T OFFICE 07617 NEPHROLOG AGUDELO OUTPATIEN 7 7 Y T VISIT ASSOCIATE 25 S OF BERRY MINUTES OFFICE 35971 ROSS CHAN OUTPATIEN 7 7 [facility] T VISIT [facility] 10 [facility] ROSS - 7 7 [facility] OUTPATIEN INC T OFFICE 43584 [place] [facility] OUTPATIEN 7 7 MEDICAL T VISIT SERV 25 FOUNDATIO MINUTES N OFFICE 42417 [facility] LAMI OUTPATIEN 7 7 [facility] T VISIT MEDICAL 15 G MINUTES OFFICE 62514 [facility] 7 7 PHYSICIAN T VISIT S GROUP 15 MINUTES OFFICE 27775 NEPHROLOG AAMIR OUTPATIEN 7 7 Y T VISIT ASSOCIATE 25 S OF BERRY MINUTES OFFICE 12984 [facility] OUTPATIEN 6 6 PHYSICIAN T VISIT S GROUP 25 MINUTES OFFICE 61980 [place] ZIMMERMAN OUTPATIEN 6 6 MEDICAL T NEW 20 SERV MINUTES FOUNDATIO N OFFICE 49935 NEPHROLOG TENA OUTPATIEN 6 6 Y T VISIT ASSOCIATE 25 S OF BERRY MINUTES OFFICE 72857 ROSS NETTIE OUTPATIEN [address] MINUTES HOSPITAL ROSS - 6 6 [facility] OUTPATIEN [facility] ROSS - 6 6 [facility] OUTPATIEN INC T OFFICE 91254 [facility] OUT[facility] 6 6 PHYSICIAN MATY T VISIT S GROUP 25 MINUTES EMERGENCY 38433 ROSS 6 6 [facility] DEPARTMEN [facility] T VISIT LIMITED/M INOR [facility] ROSS - 6 6 [facility] OUTPATIEN [facility] OFFICE 89065 [facility]UNSON OUTPATIEN 6 6 PHYSICIAN T VISIT S GROUP 15 MINUTES OFFICE 55455 [facility] OUTPATI 6 6 Y OF CK JOSE T VISIT [place] 25 HOSPI [facility] ROSS - 6 6 [facility] INPATIENT [facility] ROSS - 6 6 [facility] OUTPATIEN [facility] EMERGENCY 17016 ROSS 6 6 [facility] DEPARTMEN [facility] T VISIT LOW/MODER SEVERITY HOSPITAL ROSS - 6 6 [facility] OUTPATIEN [facility] ROSS - 6 6 [facility] OUTPATIEN INC [facility]OSPITAL ROSS - 6 6 [facility] OUTPATIEN INC [facility]ITAL ROSS - 6 6 [facility] OUTPATIEN INC [facility] ROSS - 6 6 [facility] OUTPATIEN [facility] ROSS - 6 6 [facility]PATIEN [facility] ROSS - 6 6 [facility] OUTPATIEN INC T [facility] ROSS - 6 6 [facility] OUTPATIEN INC [facility]OSPITAL ROSS - 6 6 [facility] OUTPATIEN INC T HOSPITAL ROSS - 6 6 [facility] OUTPATIEN INC T OFFICE 52896 [facility]M OUTPATIEN 6 6 PHYSICIAN OGHADDAM T VISIT S GROUP 15 MINUTES HOSPITAL ROSS - 6 6 [facility] OUTPATIEN INC T EMERGENCY 68406 ROSS 6 6 [facility] DEPARTMEN INC T VISIT LOW/MODER SEVERITY OFFICE 20175 [facility] OUTPATIEN 6 6 Y OF CK JOSE T VISIT [place] 40 HOSPI MINUTES OFFICE 78856 ROSS GILES OUTPATIEN 6 6 [facility] T VISIT HOSPITAL 10 P MINUTES HOSPITAL ROSS - 6 6 [facility] OUTPATIEN INC T OFFICE 81847 [facility] OUT[facility] 6 6 PHYSICIAN MATY T VISIT S GROUP 15 MINUTES OFFICE 11205 NEPHROLOG AGUDELO OUTPATIEN 6 6 Y NABIL T VISIT ASSOCIATE 25 S OF BERRY MINUTES HOSPITAL ROSS - 6 6 [facility] OUTPATIEN INC T OFFICE 09825 [facility] TOD OUTPATIEN 6 6 PHYSICIAN T VISIT S GROUP 10 MINUTES HOSPITAL ROSS - 6 6 [facility] OUTPATIEN INC T OFFICE 17922 [facility] OUTPATIEN 6 6 PHYSICIAN FRANKIE T VISIT S GROUP 10 MINUTES OFFICE 46117 [facility] OUTPATIEN 6 6 PHYSICIAN STEFANIE T VISIT S GROUP 15 MINUTES HOSPITAL ROSS - 6 6 [facility] OUTPATIEN INC T OFFICE 18005 [facility] OUT[facility] 6 6 PHYSICIAN MATY T VISIT S GROUP 15 MINUTES EMERGENCY 98748 ROSS 6 6 [facility] DEPARTMEN INC T VISIT MODERATE SEVERITY HOSPITAL ROSS - 6 6 [facility] OUTPATIEN INC T EMERGENCY 54914 ROSS 6 6 [facility] DEPARTMEN INC T VISIT LOW/MODER SEVERITY HOSPITAL ROSS - 6 6 [facility] ROS[facility] - 6 6 [facility] T OFFICE 25800 [facility] JACQU[facility] TOD OUTPATIEN 6 6 PHYSICIAN T VISIT S GROUP 10 MINUTES OFFICE 88123 [facility] JACQU[facility]-M OUTPATIEN 6 6 PHYSICIAN OGTASHIDDAM T NEW S GROUP MINUTES EMERGENCY 48811 ROSS 6 6 [facility] DEPARTMEN INC T VISIT LOW/MODER SEVERITY HOSPITAL ROSS - 6 6 [facility] T OFFICE 31642 [facility] OUTPATIEN 6 6 [facility] 15 P [facility] ROSS [facility] 6 6 [facility] T OFFICE 80817 ROSS LOWEKINS OUTPATIEN 6 6 [facility] 10 P [facility] POMPEYS PILLAR - 6 6 [facility] T OFFICE 21315 NEPHROLOG AGUDELO OUTPATIEN 6 6 Y NABIL T VISIT ASSOCIATE 25 S OF BERRY MINUTES [facility] [place] [place] [address] OUTPATIEN T OFFICE 81762 [facility] OUTPATIEN 6 6 PHYSICIAN FRANKIE T VISIT S GROUP 15 MINUTES OFFICE 91918 [facility] DON OUTPATIEN 6 6 HEALTH STEFANIE T NEW 45 MEDICAL MINUTES GROUP OFFICE 76396 [facility] GILES OUTPATIEN 6 6 [facility] 10 P MINUTES OFFICE 86703 [facility] 6 6 PHYSICIAN FRANKIE T VISIT S GROUP 15 MINUTES OFFICE 35754 NEPHROLOG NEEL OUTPATIEN 6 6 Y THO T NEW 60 ASSOCIATE MINUTES S OF BERRY OFFICE 17607 RODOLFO COHEN OUTPATIEN 6 6 MEDICAL JAM T VISIT SERV 15 FOUNDATIO MINUTES N EMERGENCY 93572 ROSS 6 6 [facility] DEPARTMEN INC T VISIT HIGH/URGE NT SEVERITY HOSPITAL ROSS - 6 6 [facility] OUTPATI[facility] INC T OFFICE 69331 ROS[facility] GILES OUTPATIEN 6 6 [facility] T VISIT HOSPITAL 15 P MINUTES HOSPITAL ROSS - 6 6 [facility] INC T OFFICE 87733 BRIJESH LIANG OUTPATIEN 6 6 AZUL WATTS T VISIT 15 MINUTES HOSPITAL ROSS [facility] 6 6 [facility] INC T OFFICE 32215 [facility] 5 PHYSICIAN STONE T VISIT S GROUP PA-Perla DEEPAK 15 MINUTES [facility] ROSS [facility] 5 5 [facility] T EMERGENCY 79840 ROSS 5 5 [facility] DEPARTMEN INC T VISIT LOW/MODER SEVERITY HOSPITAL ROSS [facility] 5 5 [facility] ROSS [facility] 5 5 [facility] T OFFICE 68282 [facility] VIS[facility] 15 G MINUTES [facility] [address] [facility] [address] ROSS - 5 5 [facility] ROSS [facility] 5 5 [facility] ROSS - 5 5 [facility] T [facility] ROSS - 5 5 [facility] ROSS - 5 5 [facility] T [facility] ROSS - 5 5 [facility] INC T OFFICE 50570 [facility] OUT[facility] 5 5 PHYSICIAN STONE T VISIT S GROUP SALTY SOTELO 15 [facility] ROSS - 5 5 [facility] ROSS - 5 5 [facility] ROSS - 5 5 [facility] INC T OFFICE 62373 CARMENZA CHANCEON OUTPATIEN 5 5 FRANKIE FRANKIE T VISIT [facility] ROSS - 5 5 [facility] OUTPATI[facility] INC T EMERGENCY 50171 ROSS CARBALLOEY 5 5 [facility] T VISIT P MODERATE SEVERITY HOSPITAL ROSS - 5 5 [facility] T EMERGENCY 47587 ROSS CARBALLOEY 5 5 [facility] T VISIT P MODERATE SEVERITY HOSPITAL ROSS - 4 4 [facility] ROSS - 4 4 [facility] ROSS - 4 4 [facility] T OFFICE 14019 [facility] 4 4 PHYSICIAN T VISIT S GROUP MINUTES HOSPITAL ROSS - 4 4 [facility] ROSS - 4 4 [facility] T OFFICE 56912 BREEZY TIJERINA OUTPATIEN 4 4 [facility] 20 MINUTES [facility] ROSS - 4 4 [facility] ROSS [facility] 4 4 [facility] ROSS - 4 4 [facility] ROSS [facility] 4 4 [facility] - 3 3 [facility] 3 3 [facility] ROSS [facility] 3 3 [facility] ROSS - 3 3 [facility] ROSS - 3 3 [facility] ROSS [facility] 3 3 [facility] OFFICE 34670 MCKEMIE MCKEMIE OUTPATIEN 3 3 JR IRAIDA LOPEZ IRAIDA T VISIT 15 MINUTES EMERGENCY 36554 ALFARIS ALFARIS 3 3 [facility] T VISIT MODERATE SEVERITY HOSPITAL ROSS - 3 3 [facility]PAT[facility]EN [facility] ROSS - 3 3 [facility] INPATIENT [facility] OFFICE 38337 MCKEMIE CHRISTOKEMIE OUTPATIEN 3 3 JR IRAIDA LOPEZ IRAIDA T NEW 30 MINUTES OFFICE 55024 PETTEY PETTEY OUTPATIEN 3 3 AINSLEY SCHMITZ [facility] 30 MINUTES HOSPITAL ROSS - 3 3 [facility]EN [facility] OFFICE 68818 FALLUDAYO FALLUJI OUTPATIEN 3 3 MEM[facility] VALENTINE T VISIT 25 MINUTES HOSPITAL ROSS - 2 2 [facility] ROSS [facility] 2 2 [facility] ROSS - 2 2 [facility] T OFFICE 16975 GILES GILES OUTPATIEN 2 2 SONDRA SONDRA T VISIT 5 MINUTES OFFICE 41787 HARPEL OUTPATIEN 2 2 STEFANIE T VISIT 5 MINUTES HOSPITAL ROSS - 2 2 [facility] ROSS - 2 2 [facility] ROSS - 2 2 [facility] ROSS - 2 2 [facility] T OFFICE 04563 BRIJESH LIANG OUTPATIEN 2 2 AZUL PALMER STEFANIE T VISIT 5 MINUTES OFFICE 54539 ROSS OUTPATIEN 2 2 [facility] T VISIT INC 25 MINUTES HOSPITAL ROSS - 2 2 [facility] T OFFICE 47621 BRIJESH KAISERL OUTPATIEN 2 2 AZUL PALMER STEFANIE T VISIT 5 MINUTES OFFICE 16428 BRIJESH LIANG OUTPATIEN 2 2 AZUL PALMER STEFANIE T VISIT 5 MINUTES HOSPITAL ROSS - 1 1 [facility] T OFFICE 81494 BRIJESH LIANG OUTPATIEN 1 1 AZUL PALMER STEFANIE T VISIT 5 MINUTES HOSPITAL ROSS - 1 1 [facility] ROSS - 1 1 [facility] ROSS - 1 1 [facility] T OFFICE 53811 BRIJESH KAISERL OUTPATIEN 1 1 AZUL PALMER STEFANIE T VISIT 5 MINUTES OFFICE 48241 ROSS GILES OUTPATIEN 1 1 [facility] 25 P MINUTES HOSPITAL ROSS - 1 1 [facility] T OFFICE 39678 ROSS OUTPATIEN 1 1 [facility] T VISIT INC 25 MINUTES HOSPITAL ROSS - 1 1 [facility] T OFFICE 81994 [facility] PRASHANTHU OUTPATIEN 1 1 PHYSICIAN MEM[facility] T VISIT S GROUP 25 MINUTES OFFICE 33537 BRIJESH LIANG OUTPATIEN 1 1 AZUL PALMER STEFANIE T VISIT 5 MINUTES OFFICE 52412 ROSS LOWEKINS OUTPATIEN 1 1 [facility] 25 P MINUTES OFFICE 94712 BRIJESH LIANG OUTPATIEN 1 1 AUZL PALMER STEFANIE T VISIT 5 MINUTES OFFICE 10725 BRIJESH LIANG OUTPATIEN 1 1 AZUL PALMER STEFANIE T VISIT 5 MINUTES HOSPITAL ROSS - 1 1 [facility]EN [facility] ROSS [facility] 1 1 [facility] OFFICE 63961 ROSS LOWEKINS OUTPATIEN 1 1 [facility] 25 P MINUTES HOSPITAL ROSS - 1 1 [facility] INPATIENT [facility] EMERGENCY 63966 LARISA TIJERINA DEPT 1 1 EMERGENCY MATY VISIT SERVICES HIGH SEVERITY& THREAT FUN OFFICE 42191 Perla PHILLIPS OUTPATIEN 1 1 JACQUELINE GONZALEZ T VISIT [facility] 25 MINUTES OFFICE 61296 BRIJESH LIANG OUTPATIEN 0 0 AZUL PALMER STEFANIE T VISIT 25 MINUTES HOSPITAL ROSS - 0 0 [facility]PAT[facility]EN [facility] ROSS - 0 0 [facility] ROSS - 0 0 [facility] OUTPATIEN INC T HOSPITAL ROSS - 0 0 [facility] OUTPATIEN [facility] T OFFICE 87420 BRIJESH LIANG OUTPATIEN 0 0 AZUL Hassan VISIT 5 MINUTES EMERGENCY 49943 LARISA AGUILAR [facility] DE[facility] 0 0 EMERGENCY VISIT SERVICES HIGH SEVERITY& THREAT FUNCJ [facility] ROSS - 0 0 [facility] INPATIENT INC OFFICE 99631 [facility] OUTPATIEN 0 0 LTH SONDRA T VISIT UROLOGY 25 PSC MINUTES OFFICE 20049 BRIJESH LIANG OUTPATIEN 0 0 AZUL WATTS T VISIT 5 MINUTES [facility] ROSS - 0 0 [facility] OUTPATIEN [facility] T OFFICE 06802 [facility] OUTPATIEN 0 0 LTH SONDRA T VISIT UROLOGY 25 PSC MINUTES OFFICE 85106 [facility] OUTPATIEN 0 0 LTH SONDRA T VISIT UROLOGY 25 PSC MINUTES OFFICE 79017 BRIJESH LIANG OUTPATIEN 0 0 AZUL Hassan VISIT 5 MINUTES [facility] ROSS - 0 0 [facility] OUTPATIEN INC T OFFICE 66467 BRIJESH LIANG OUTPATIEN 0 0 [facility] [place] T VISIT 5 MINUTES OFFICE 32842 [facility] OUTPATIEN 0 0 LTH SONDRA T VISIT UROLOGY 25 PSC MINUTES OFFICE 51607 BRIJESH LIANG OUTPATIEN 0 0 [facility] [place] T VISIT 15 MINUTES OFFICE 88947 [facility], OUTPATIEN 0 0 LTH FLO D T NEW 30 UROLOGY MINUTES PSC OFFICE 46957 BRIJESH LIANG OUTPATIEN 0 0 AZUL WATTS T VISIT 5 MINUTES OFFICE 36726 BRIJESH LIANG OUTPATIEN 0 0 AZUL [place] R T VISIT 15 MINUTES OFFICE 37450 BRIJESH LIANG OUTPATIEN 0 0 AZUL COLEY R T VISIT 15 MINUTES OFFICE 07875 BRIJESH LIANG OUTPATIEN 0 0 AZUL COLEY R T VISIT 5 MINUTES HOSPITAL ROSS - 0 0 [facility]PATIEN INC T OFFICE 75310 BRIJESH LIANG OUTPATIEN 0 0 [facility] [place] T VISIT 25 MINUTES HOSPITAL ROSS - 0 0 [facility] OUTPATIEN INC T OFFICE 39331 BRIJESH LIANG OUTPATIEN 0 0 [place] [place] T VISIT 25 MINUTES OFFICE 51649 BRIJESH LIANG OUTPATIEN 0 0 AZUL [place] T VISIT 5 MINUTES EMERGENCY 45110 LARISA TIJERINA, 0 0 EMERGENCY [facility] SERVICES T VISIT HIGH/URGE ASSOCIATE NT S SEVERITY EMERGENCY 14654 ROSS 0 0 [facility] DEPARTMEN INC T VISIT MODERATE SEVERITY HOSPITAL ROSS - 0 0 [facility] OUTPATIEN [facility] T HOSPITAL ROSS - 0 0 [facility] OUTPATIEN INC T EMERGENCY 13079 ROSS 0 0 [facility] DEPARTMEN INC T VISIT LOW/MODER SEVERITY EMERGENCY 29471 LARISA TIJERINA, 0 0 EMERGENCY [facility] T VISIT HIGH/URGE ASSOCIATE NT S SEVERITY OFFICE 73167 BRIJESH LIANG OUTPATIEN 9 9 [facility] [place] T VISIT 5 MINUTES OFFICE 64047 SCHULSTMYNOR SCHULSTMYNOR CONSULTAT 9 9 , FLORECITA BERNABE ION NEW/ESTAB PATIENT 60 MIN OFFICE 33532 LESLIE GRANT 9 9 [facility] [place] T VISIT 40 MINUTES HOSPITAL ROSS - 9 9 [facility] OUTPATIEN INC T EMERGENCY 49001 LARISA CARRASCO, 9 9 EMERGENCY [facility] DEPARTMEN SERVICES T VISIT MODERATE ASSOCIATE SEVERITY S OFFICE 21641 LESLIE GRANT 9 9 [place] [place] T VISIT 5 MINUTES EMERGENCY 66557 LARISA TYLER, 9 9 EMERGENCY [facility] DEPARTMEN SERVICES T VISIT HIGH/URGE ASSOCIATE NT S SEVERITY EMERGENCY 27067 ROSS 9 9 [facility] DEPARTMEN INC T VISIT LOW/MODER SEVERITY HOSPITAL ROSS - 9 9 [facility] OUTPATIEN INC T HOSPITAL ROSS - 9 9 [facility] OUTPATIEN INC T OFFICE 70573 [facility] LESLIE OROSCO 9 9 PHYSICIAN N[place]EM [place] T VISIT S GROUP 25 MINUTES OFFICE 94992 LESLIE GRANT 9 9 [facility] [place] T VISIT 5 MINUTES HOSPITAL ROSS - 9 9 [facility] OUTPATIEN INC T HOSPITAL ROSS - 9 9 [facility] OUTPATIEN INC T EMERGENCY 60373 RSOS 9 9 [facility] DEPARTMEN INC T VISIT LOW/MODER SEVERITY EMERGENCY 87112 LARISA AGUILAR, 9 9 EMERGENCY TARYN DEPARTMEN SERVICES O T VISIT HIGH/URGE ASSOCIATE NT S SEVERITY OFFICE 64397 PETRA LAMBERT OUTPATIEN 9 9 DON R DON R T VISIT 15 MINUTES HOSPITAL ROSS - 9 9 [facility] OUTPATIEN INC T HOSPITAL ROSS - 9 9 [facility] OUTPATIEN INC T OFFICE 01363 LESLIE GRANT 9 9 [facility] [place] T VISIT 5 MINUTES EMERGENCY 21990 LARISA TIJERINA, DEPT 9 9 EMERGENCY TIMOTHY S VISIT SERVICES HIGH SEVERITY& ASSOCIATE THREAT S FUNCJ EMERGENCY 83344 ROSS 9 9 [facility] DEPARTMEN INC T VISIT HIGH/URGE NT SEVERITY OFFICE 07696 BRIJESH LIANG OUTCRISS 9 9 [place] [place] T VISIT 5 MINUTES EMERGENCY 21183 ROSS 9 9 [facility] DEPARTMEN INC T VISIT LIMITED/M [facility] ROSS - 9 9 [facility] OUTPATIEN INC T EMERGENCY 04629 LARISA RUTLEDGE, 9 9 EMERGENCY KATHY J DEPARTMEN SERVICES T VISIT MODERATE ASSOCIATE SEVERITY S OFFICE 87496 PETRA LAMBERT OUTCRISS 9 9 DON R DON R T VISIT 15 MINUTES EMERGENCY 23482 LARISA MARROQUIN, 9 9 EMERGENCY ANY R DEPARTMEN SERVICES T VISIT MODERATE ASSOCIATE SEVERITY S EMERGENCY 08368 ROSS 9 9 [facility] DEPARTMEN INC T VISIT LIMITED/M [facility] ROSS - 9 9 [facility] OUTPATIEN INC T OFFICE 59900 LESLIE BERTRAND 9 9 FABIENNE [place] T VISIT SERV 25 FOUNDATIO MINUTES OFFICE 88240 TERENCE PRATT OUTPATIDENNISE 9 9 PARI YAÑEZ T VISIT 40 MINUTES OFFICE 65756 LESLIE GRANT 9 9 [facility] [place] T VISIT 5 MINUTES OFFICE 27654 BRIJESH LIANG OUTPATIDENNISE 9 9 AZUL COLEY R T VISIT 5 MINUTES OFFICE 82127 JULIAN GRANTPATIDENNISE 9 9 AZUL COLEY R T VISIT 5 MINUTES OFFICE 14989 PETRA LAMBERT OUTPATIEN 9 9 DON R DON R T VISIT 15 MINUTES OFFICE 26916 BRIJESH LIANG OUTPATIDENNISE 9 9 AZUL CO[place] R T VISIT 5 MINUTES HOSPITAL ROSS - 9 9 [facility] OUTPATIEN INC T EMERGENCY 18606 ROSS 9 9 [facility] DEPARTMEN INC T VISIT MODERATE SEVERITY EMERGENCY 26377 JUSTINO TIJERINA, DEPT [address] [facility] VISIT CORPORATI HIGH ON SEVERITY& THREAT [facility] OFFICE 39268 PETRA LAMBERT OUTPATIEN 8 8 DON R DON R T VISIT 15 MINUTES HOSPITAL ROSS - 8 8 [facility] OUTPATIEN INC T OFFICE 38487 PETRA LAMBERT OUTPATIEN 8 8 DON R DON R T VISIT 15 MINUTES OFFICE 34224 LESLIE GRANT 8 8 AZUL [place] R T VISIT 5 MINUTES OFFICE 93409 BRIJESH LIANG OUTPATIDENNISE 8 8 AZUL [place] R T VISIT 25 MINUTES OFFICE 50311 LESLIE GRANT 8 8 [place] [place] T VISIT 5 MINUTES OFFICE 16159 LESLIE OTOOLE 8 8 MEDICAL CLYDE T VISIT SERV 10 FOUNDATIO MINUTES OFFICE 42245 LESLIE GRANT 8 8 [place] [place] T VISIT 25 MINUTES OFFICE 63478 PETRA LAMBERT OUTPATIEN 8 8 DON R DON R T VISIT 15 MINUTES HOSPITAL ROSS - 8 8 [facility] T HOSPITAL ROSS - 8 8 [facility] OUTPATIEN [facility] T OFFICE 73785 LESLIE LEMUS 8 8 MEDICAL GEN T NEW 30 SERV ER A MINUTES FOUNDATIO OFFICE 29435 RODOLFO RODRIGUEZ [facility] 8 8 MEDICAL ANDER T VISIT SERV 25 FOUNDATIO MINUTES OFFICE 04793 PETRA LAMBERT OUTPATIEN 8 8 DON R DON R T VISIT 15 MINUTES HOSPITAL ROSS - 8 8 [facility] ROSS - 8 8 [facility] T EMERGENCY 24782 ROSS 8 8 [facility] DEPARTMEN [facility] T VISIT HIGH/URGE NT SEVERITY OFFICE 51396 PETRA LAMBERT OUTPATIEN 8 8 DON R DON R T VISIT 15 MINUTES OFFICE 02857 LESLIE GRANT 8 8 [place] [place] T VISIT 40 MINUTES OFFICE 05655 PETRA LAMBERT OUTPATIEN 8 8 DON R DON R T VISIT 15 MINUTES EMERGENCY 72192 ROSS 8 8 [facility] DEPARTMEN INC T VISIT MODERATE SEVERITY HOSPITAL ROSS - 8 8 [facility] OUTPATIEN [facility] T HOSPITAL ROSS - 8 8 [facility]PATIEN INC T OFFICE 38457 LESLIE GRANT 8 8 AZ[facility] [place] T VISIT 5 MINUTES HOSPITAL ROSS - 8 8 [facility] OUTPATIEN [facility] T OFFICE 16511 ALLRAN ALLRAN OUTPATIEN 8 8 JR JOHN, T VISIT ROSARIO Mary 25 MINUTES OFFICE 76688 [facility]RIJESH [facility] 8 8 [place] [place] T VISIT 5 MINUTES OFFICE 70528 [facility] DON R DON R T VISIT 15 MINUTES OFFICE 25487 RODOLFO RODRIGUEZ [facility] 8 8 [facility] T VISIT SERV 25 FOUNDATIO MINUTES EMERGENCY 82331 ROSS 8 8 [facility] DEPARTMEN [facility] T VISIT LOW/MODER SEVERITY HOSPITAL ROSS - 8 8 [facility] ROSS - 8 8 MEM [facility] OUTPATIEN [facility] T EMERGENCY 32590 ROSS 8 8 [facility] DEPARTMEN [facility] T VISIT HIGH/URGE NT SEVERITY OFFICE 66869 ALLRAN ALLRAN OUTPATIEN 8 8 JR JOHN, T VISIT ROSARIO Mary 15 MINUTES OFFICE 09582 ALLRAN ALLRAN OUTPATIEN 8 8 JR JOHN, T VISIT ROSARIO Mary 25 MINUTES OFFICE 48040 [facility]RIJESH [facility] 8 8 [place] [place] T VISIT 5 MINUTES HOSPITAL ROSS - 8 8 [facility]PATIEN [facility] T HOSPITAL ROSS - 8 8 [facility]PATIEN [facility] T HOSPITAL ROSS - 8 8 [facility] OUTPATIEN [facility] T OFFICE 75614 [facility] DON R DON R T VISIT 15 MINUTES OFFICE 58323 TERENCE PRATT, CLARI 8 8 PARI [place] [facility]/ESTAB PATIENT 80 MIN [facility] - 8 8 [facility] 8 8 [facility] T OFFICE 19573 BRIJESH LIANG [facility] 8 8 AZUL Hassan VISIT 25 MINUTES OFFICE 87508 PETRA LAMBERT [facility] 8 8 XAVI [place] T VISIT 15 MINUTES HOSPITAL [place] - 8 [facility] T OFFICE 45546 RODOLFO RODRIGUEZ [facility] 8 8 [facility] VISIT SERV 25 FOUNDATIO MINUTES
--- OUTSIDE RECORDS SUMMARY | 2017-04-03 13:33 | External Medical Summary Rpt ---
Author Author , Organization [employer] Address Unknown Phone Unavailable Purpose Continuity of Care Document - 08-21-2015 through 2016 Immunization Name Date Route CVX Reacti Commen Provid Is Given on t er Refuse d Influe 140 Histor [place] No nza, 2014 uscula ical P-Free r Inform ation - Source Unspec ified
--- OUTSIDE RECORDS SUMMARY | 2017-04-03 13:33 | External Medical Summary Rpt ---
Author Author JUAN Sauceda, [employer] Organization [employer] Address Unknown Phone Unavailable
--- OUTSIDE RECORDS SUMMARY | 2017-04-03 13:33 | External Medical Summary Rpt ---
Author Author , Organization [employer] Address Unknown Phone Unavailable Purpose Continuity of Care Document - 08-21-2015 through 2016 Immunization Name Date Route CVX Reacti Commen Provid Is Given on t er Refuse d Influe 140 Histor OR No nza, 2014 uscula ical P-Free r Inform ation - Source Unspec ified
[2017-04-03] MEDS ORDERED: ZOFRAN ODT4 MG PO (13:40)
[2017-04-03] MEDS ORDERED: KEFLEX 500MG.500 MG PO (13:40)
--- NOTE | 2017-04-03 13:42 | Urgent Treatment Center Report ---
History of Present Issue Date/Time Seen by Provider 04/03/17 0265 Visit Reason Pt arrived:Walked Presenting Problem:PT STATES SHE HAS A HEADCAHE, BURNING AND PAIN WHEN SHE URINATES AND BLOOD IN URINE. Location if Accident: Onset of symptoms date/time:/ or onset unknown for:MEDICAL HX UNKNOWN Have you (or family members/close friends) recently traveled outside the [place]? N If Yes, where/when: Have you had exposure to infectious disease within the past month? TB? Other? Specify: Source patient Exam Limitations no limitations Comment 56-year-old female presents today for burning, painful urination, headache, nausea, and blood in urine that started yesterday. Patient states she has decreased kidney function ALLERGIES Coded Allergies: azithromycin (From ZITHROMAX Z-JACI) (Mild, 09/16/16) codeine (Mild, 09/16/16) guaifenesin (From MUCINEX) (Mild, 09/16/16) Home Medications Active Scripts Magnesium Oxide (Magnesium) 400 MG PO BID #60 TAB Ref 1 Prov: 08/27/16 Calcium Carbonate (TUMS) 500 MG PO BID #120 TAB Ref 3 Prov: 08/27/16 Naproxen Sodium (Flanax) 220 MG PO BID PRN pain #10 TAB Prov: 09/16/16 ALBUTEROL-IPRATROPIUM (Iprat-Albut 0.5-3(2.5) MG/3 Ml) 3 ML IN Q6H6 1 Days Prov: 08/13/13 Gabapentin 300 MG PO TID 1 Days Prov: 08/13/13 Acetaminophen (Acetaminophen Extra Strength) 500 MG PO Q4HP PRN PAIN NEEDED 1 Days Prov: 08/13/13 Reported Medications Atorvastatin Calcium (Atorvastatin) 20 MG PO DAILY Fluticasone Propionate (Flonase 50 Mcg Nasal Kirvin) 1 SPRAY NA DAILY #1 BOT ALBUTEROL (Ventolin Hfa) 1 PUFF IH Q6H6 Tiotropium [place] (Spiriva) 1 PUFF IH DAILY #30 ASPIRIN (Aspirin) 81 MG PO DAILY Losartan Potassium (Losartan 100MG) 100 MG PO DAILY Levothyroxine Sodium (Levothyroxine 0.088MG) 0.088 MG PO DAILY CLOPIDOGREL BISULFATE (Clopidogrel) 75 MG PO DAILY #90 RALOXIFENE HCL (Raloxifene HCl) 60 MG PO DAILY #90 Calcitriol (Calcitriol 0.25MCG Capsule) 0.25 MCG PO BID History Medical History General CAD? No Angina: Yes ND: Yes Hypertension? Yes Hyperlipidemia? Yes CHF? Yes DVT? No PE? No COPD? Yes Asthma? No Anemia? No GERD? No Gastric ulcers? No GI Bleed? No Hernia? No Thyroid Problems? Yes Hypothyroidism? Yes CVA? Yes Seizures? No Diabetes? No Insulin Dependent: No Insulin Pump: No Home FSBS? No Renal Insuffiency? Yes UTI? Yes Stones? No BPH? No GB Disease: Yes Nephritic Syndrome? No Asplenia? No Hepatitis? No Sickle Cell Disease? No Arthritis? Yes Migraines? No Cataracts? No Glaucoma? No MRSA? No HIV? No TB? No Anxiety? No Depression? No Cancer? No More? No Immunization HX DT/Tetanus 1-4 Years Ago Flu Refused Pneumonia Received In Past Surgical Hx Previous Surgery?Y GALLBLADDER X 2 TONSILLS THYROID HYSTERECTOMY APPENDIX, CYST REMOVED BLADDER TACK X 2 HERNÁN BREAST BIOPSY D& C, SEVERAL HEART CATH X 6 Family History Family HX Diabetes Yes CAD Yes Hypertension Yes Hyperlipidemia Yes Cancer Yes TB No Social History Smoking Hx Smoker: Current Every Day Smoker Tobacco: Yes Type Cigarettes Packs/day 1 1/2 - 2 Packs Alcohol Alcohol: No Review of Systems All Other Systems Reviewed and Negative Genitourinary see HPI, frequency, hesitancy, hematuria, pain. Physical Exam Vital Signs Vital Signs Date Time Temp Pulse Resp B/P Pulse O2 O2 Flow FiO2 Ox Delivery Rate 04/03 1305 97.7 82 20 153/73 96 / 1300 97.7 82 20 153/73 96 - WBC >12,000 or <4,000 or 10% bands? 2 or more SIRS Criteria Met? B/P:153/73 MAP:99 Creatinine >2.0? UA output<0.5ml/kg/hr for 2 hrs? Platelet count >100,000? Lactate >2.0mmol/1? INR >1.2 or PTT > than 60 sec? Evidence of Organ Dysfunction? Provider documented clinical suspician of infection? Sepsis Criteria Count: 1 Sepsis Risk: General Appearance normal appearance, no apparent distress Respiratory Status Yes: trachea midline, chest symmetrical. No: respiratory distress. Lung Sounds bilateral: normal breath sounds, lungs clear. Cardiovascular normal exam, regular rate/rhythm Back CVA tenderness (L) Extremities non-tender, normal range of motion Neurologic alert, normal exam, no motor/sensory deficits, oriented x 3 Medical Decision Making LABS/Meds/Orders Pt receiving controlled substance in ED? No Results/Orders Laboratory Tests 04/03/17 1307: Urine Color RED, Urine Appearance Clear, Urine pH 7.5, Ur Specific Beecher 1.010 , Urine Protein 100, Urine Ketones NEGATIVE, Urine Blood 3+ H, Urine Nitrate NEGATIVE, Urine Bilirubin NEGATIVE, Urine Urobilinogen 0.2, Ur Leukocyte Esterase 2+ H, Urine Glucose NEGATIVE Current Medication Orders Sig/Cuong Start time Last Medication Dose Route Stop Time Status Admin Ceftriaxone Sodium 1 GM ONCE ONE 04/03 1345 AC IM 04/03 1346 Lidocaine HCl 0 ONCE ONE 04/03 1345 AC IM 04/03 1346 Ondansetron HCl 4 MG Q8HP PRN 04/03 1345 CKDr PO Ceftriaxone Sodium 0 .STK-MED ONE 04/03 1338 DC .ROUTE Lidocaine HCl 0 .STK-MED ONE 04/03 1338 DC IJ Ondansetron HCl 0 .STK-MED ONE 04/03 1338 DC .ROUTE Orders Procedure Date/time Status CULTURE, URINE 04/03 1315 Active UTC URINE DIPSTICK 04/03 1307 Complete Departure Departure Time of Disposition 1338 Disposition DC Home or Self Care(routine) Clinical Impression Primary Impression: UTI (urinary tract infection) Qualifiers: Urinary tract infection type: site unspecified Hematuria presence: with hematuria Qualified Code: N39.0 - Urinary tract infection, site not specified Condition STABLE Referrals Mago PALMER,Mat Melo (Family): Tomorrow-Call Office Patient Instructions DI for Urinary Tract Infection (UTI) Additional Instructions Increase fluids,Tylenol and Motrin as needed for pain or fever, follow-up with PCP tomorrow-call for appointment ,return or be seen in the ER if symptoms worsen or do not improve Discharge Counseling Counseled pt/family regarding diagnosis, test results, medications/RX, home care, follow up needs Prescriptions Current Visit Scripts CEPHALEXIN (Keflex 500MG Capsule) 500 MG PO BID 10 Days Ondansetron (Zofran 4MG Odt) 4 MG PO Q8HP PRN NAUSEA [address] on Keflex pending culture results due to kidney function at 6122
[2017-04-03 13:45] VITALS: BP 153/73
== END 2017-04-03 13:48 | disposition home or self-care (01) ==
LOC: ER 12:54 → UTC 12:54
PROVIDERS: Nurse Practitioner Family
DX: N39.0 Urinary tract infection, site not specified (principal); I10 Essential (primary) hypertension; J44.9 Chronic obstructive pulmonary disease, unspecified; Z72.0 Tobacco use

== ENCOUNTER 2017-04-05 21:40 | Emergency (ER) | payer MEDICARE, MEDICAID ==
[~2017-04-05] VITALS: Ht 149.9 cm; Wt 66.2 kg
[~2017-04-05 21:40] MED LIST changes: +KEFLEX 500MG.500 MG PO; +ZOFRAN ODT4 MG PO
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
--- OUTSIDE RECORDS SUMMARY | 2017-04-05 22:18 | External Medical Summary Rpt ---
Author Author , Organization [employer] Address Unknown Phone Unavailable Care Team Providers Care Director Online Marketing Name Role Phone LURDES ANASTACIA, LURDES Unavailable Unavailable ANASTACIA LURDES ANASTACIA, LURDES Unavailable Unavailable ANASTACIA GILES, GILES Unavailable Unavailable GILES SONDRA, GILES Unavailable Unavailable SONDRA GILES SONDRA, GILES Unavailable Unavailable SONDRA GILES, FLO D, Unavailable Unavailable GILES, FLO D ALFARIS MOH, ALFARIS Unavailable Unavailable MOH ALFARIS MOH, ALFARIS Unavailable Unavailable MOH ROSARIO YEH JR, Unavailable Unavailable ROSARIO YEH JR [facility] Unavailable Unavailable [facility], [facility] Unavailable Unavailable INC, [facility] Any Johnson MD, Unavailable Unavailable Any Johnson MD ANJUR-KAPALI GOMEZ, Unavailable Unavailable ANJUR-KAPALI GOMEZ ANJUR-KAPALI GOMEZ, Unavailable Unavailable ANJUR-KAPALI GOMEZ TENA, TENA Unavailable Unavailable [facility] Unavailable Unavailable [facility], [facility] BEINEKE ELISSA, BEINEKE Unavailable Unavailable ELISSA BESSON, BESSON Unavailable Unavailable BESSON IZA, BESSON Unavailable Unavailable IZA BESSON IZA, BESSON Unavailable Unavailable IZA JERROD JAN A, Unavailable Unavailable BESSON JAN A [facility]available [facility]available [facility], [facility] BIRD, BIRD Unavailable Unavailable BIRD ALL, BIRD ALL Unavailable Unavailable ANDER RODRIGUEZ, Unavailable Unavailable ANDER RODRIGUEZ BRUNSON Unavailable Unavailable SHANNA PHILLIPS MD Unavailable Unavailable PSC, C FLORECITA PHILLIPS MD PSC JAZMIN CHAGO, JAZMIN Unavailable Unavailable CHAGO [facility], Unavailable Unavailable [facility] Unavailable [facility], [facility] Unavailable Unavailable [facility] Unavailable Unavailable [facility] CLEO, CLEO Unavailable Unavailable CLEO NOHEMI, Unavailable Unavailable CLEO NOHEMI CLEO NOHEMI, Unavailable Unavailable CLEO NOHEMI CLEO, CIRA, Unavailable Unavailable CLEO, CIRA [id number], Unavailable Unavailable [id number], Unavailable Unavailable [id number] LAUREN STONE PA-C Unavailable Unavailable DEEPAK, LAUREN JENKINS PA-C DEEPAK NETTIE, NETTIE Unavailable Unavailable [facility] Unavailable [place]available [place] DON STEFANIE, Unavailable Unavailable DON STEFANIE DARCIE BRA, DARCIE BRA Unavailable Unavailable [facility], [facility] Unavailable Unavailable [facility], [facility] Unavailable Unavailable [facility] FALLUJI, NEZAR M, Unavailable Unavailable FALLUJI, NEZAR M MARGARET BRAVO Unavailable Unavailable A, MARGARET BRAVO A FEEBACK REE, FEEBACK Unavailable Unavailable REE SHAIKH THO, Unavailable Unavailable SHAIKH THO MCBRIDE JOSE, Unavailable Unavailable MCBRIDE JOSE TYLER, PARI P, Unavailable Unavailable TYLER, PARI P AAMIR, AAMIR Unavailable Unavailable FRYMAN EUG, FRYMAN Unavailable Unavailable EUG GAGUA IRI, GAGUA IRI Unavailable Unavailable BREEZY, BREEZY Unavailable Unavailable BREEZY MATY, BREEZY Unavailable Unavailable MATY BREEZY MATY, BREEZY Unavailable Unavailable MATY TIMOTHY MERCEDES S, Unavailable Unavailable TIMOTHY MERCEDES S BRIJESH LIANG MD, Unavailable Unavailable BRIJESH LIANG MD, Unavailable Unavailable BRIJESH LIANG MD CORRIE RHO, CORRIE Unavailable Unavailable RHO CORRIE RHO, CORRIE Unavailable Unavailable RHO HAJIBRAHIM SARAH, Unavailable Unavailable HAJIBRAHIM SARAH ABRIL MARIJA, ABRIL Unavailable Unavailable ANY REDMOND, Unavailable Unavailable ANY MARROQUIN HARPEL STEFANIE, HARPEL Unavailable Unavailable STEFANIE HARPEL STEFANIE, HARPEL Unavailable Unavailable BRIJESH MADRID R, Unavailable Unavailable BRIJESH LIANG R SAMSON TIFFANIE, SAMSON Unavailable Unavailable TIFFANIE [facility] Unavailable Unavailable INC, [facility] Unavailable Unavailable HOSPITAL P, [facility], Unavailable Unavailable [facility] AP WASSERMAN, DE SOUZA Unavailable Unavailable LISY Kath NOBLE, Unavailable Unavailable Kath MCGOWAN MAR, JUAN M Unavailable Unavailable [facility] Unavailable Unavailable MEDICAL G, [facility] Elizabeth Pressley MD, Unavailable Unavailable Elizabeth Pressley MD [facility], Unavailable Unavailable [facility] LAMIY, LAMIY Unavailable Unavailable LAMIY TAYLOR, [...] RUTLEDGE MARCHINO IZA, Unavailable Unavailable MARCHINO IZA [facility] Unavailable Unavailable SERVICES, [facility] PARI PRATT, Unavailable Unavailable PARI PRATT COHEN Unavailable Unavailable COHENMAMTA SCHMITZ, Unavailable Unavailable PARI PETIT, Unavailable Unavailable PARI COHEN R MCKEMIE JR [...] Unavailable Sharif PEDRO, Unavailable Unavailable Sharif PEDRO DELIA MATY, Unavailable Unavailable DELIA MATY SCHULSTAD CARLOS, Unavailable Unavailable SCHULSTAD CARLOS SCHULSTAD, FLORECITA, Unavailable Unavailable SCHULSTAD, FLORECITA ONELY LISA, SHASHY Unavailable Unavailable LIAS SHOJAEI-CORNELL, Unavailable Unavailable SHOJAEI-CORNELL SOKAN BAB, SOKAN BAB Unavailable Unavailable SOKAN, TARYN O, Unavailable Unavailable SOKAN, TARYN O [facility] Unavailable Unavailable [facility] L, [facility] Unavailable Unavailable [facility], [facility], Unavailable Unavailable [facility], Unavailable Unavailable [facility] Jan Elder MD, Unavailable Unavailable Jan HURLEY, Unavailable Unavailable PETRA HURLEY, Unavailable Unavailable XAVI NUGENT R, Unavailable Unavailable XAVI LAMBERT R [facility] Un[facility] Alessandro Castro MD, Unavailable Unavailable Alessandro Castro MD WEHRMAN III IRAIDA, Unavailable Unavailable WEHRMAN III [...] Diagnosis DOS Provider Status J0101 ACUTE 02-03-2017 [facility] RECURRENT PHYSICIANS MAXILLARY GROUP SINUSITIS J342 DEVIATED 02-03-2017 [facility] NASAL PHYSICIANS SEPTUM GROUP J432 CENTRILOBUL 02-02-2017 [facility] EMPHYSEMA IMAGING ASS J449 CHRONIC 02-02-2017 [place] OBSTRUCTIVE [facility]ICAL PULMONARY IMAGING ASS DISEASE UNS R911 SOLITARY 02-02-2017 [place] PULMONARY [facility] NODULE IMAGING ASS E559 VITAMIN D 01-24-2017 [facility] UNSPECIFIED OF BERRY E876 HYPOKALEMIA 01-24-2017 [facility] [place] I10 ESSENTIAL 01-24-2017 [facility] PRIMARY [facility] HYPERTENSIO OF [place]ERRY N I701 ATHEROSCLER 01-24-2017 [facility] OSIS OF ASSOCIATES RENAL OF [place] ARTERY N189 CHRONIC 01-24-2017 [facility] KIDNEY [facility] DISEASE OF [place]ERR[place] UNSPECIFIED R339 RETENTION 01-04-2017 [facility] OF URINE [facility] P I471 SUPRAVENTRI 12-16-2016 [facility] CULAR [facility] TACHYCARDIA INC I472 VENTRICULAR 12-16-2016 [facility] TACHYCARDIA INC R0609 OTHER FORMS 12-16-2016 [facility] OF DYSPNEA MEM HOS[facility] INC R9431 ABNORMAL 12-16-2016 [facility] ELECTROCARD [facility] IOGRAM INC J309 ALLERGIC 12-08-2016 [facility] UNSPECIFIED FOUNDATION R002 PALPITATION 12-07-2016 [facility] Video Furnace E039 HYPOTHYROID 12-06-2016 [facility] ISM PHYSICIANS UNSPECIFIED GROUP E8351 HYPOCALCEMI 12-06-2016 [facility] A PHYSICIANS GROUP E892 POSTPROCEDU 11-22-2016 [facility] RAL ASSOC[facility]ATES HYPOPARATHY OF [place] ROIDISM N959 UNSPECIFIED 10-11-2016 [facility] MENOPAUSAL PHYSICIANS & GROUP PERIMENOPAU ROSALIE DISORDER R0781 PLEURODYNIA 10-11-2016 [facility] PHYSICIANS GROUP D649 ANEMIA 09-29-2016 [facility] P H356UDF UNSPECIFIED 09-20-2016 [place] INJURY OF MEDICAL THORAX IMAGING ASS INITIAL ENCOUNTER U25339G CONTUSION 09-16-2016 [facility] RT FRONT [facility] WALL THORAX INC INITIAL ENCOUNTER Y46299 PERSONAL 09-16-2016 [facility] HISTORY OF [facility] NICOTINE INC DEPENDENCE K219 GASTRO-ESOP 09-14-2016 [facility] REFLUX PHYSICIANS DISEASE GROUP WITHOUT ESOPHAGITIS E8342 HYPOMAGNESE 09-01-2016 [facility] CINDY PHYSICIANS GROUP G4734 IDIOPATH 09-01-2016 [facility] NONOBST HOSPI ALVEOL HYPOVENTILA [place] J439 EMPHYSEMA 09-01-2016 [facility] HOSPI R918 OTHER 09-01-2016 [facility] ABNORMAL HOSPI FINDING OF LUNG FIELD Z139 ENCOUNTER 09-01-2016 [facility] FOR PHYSICIANS SCREENING GROUP UNSPECIFIED R05 COUGH 08-25-2016 [facility] [facility] R079 CHEST PAIN 08-25-2016 [place] UNSPECIFIED MEDICAL IMAGING ASS J069 ACUTE UPPER 08-22-2016 [place] [facility] RESPIRATORY INC INFECTION UNSPECIFIED R0989 OT SPEC SX 08-22-2016 [place] & SIGNS MEDICAL INVLV THE IMAGING ASS CIRC & RESP SYS N390 URINARY 07-21-2016 [facility] TRACT [facility] INFECTION INC SITE NOT SPECIFIED H92636 OTHER 07-12-2016 [facility] MUSCLE PHYSICIANS SPASM GROUP R55876 PAIN IN 07-12-2016 [facility] UNSPECIFIED PHYSICIANS LIMB GROUP N3020 OTHER 07-12-2016 [facility] CHRONIC [facility] CYSTITIS INC WITHOUT HEMATURIA H5712 OCULAR PAIN 07-11-2016 [facility] LEFT EYE [facility] INC R109 UNSPECIFIED 07-02-2016 [place] ABDOMINAL MEDICAL PAIN IMAGING ASS Z9049 ACQUIRED 07-02-2016 [place] ABSENCE OT MEDICAL SPEC PARTS IMAGING ASS DIGESTIVE TRACT H109 UNSPECIFIED 06-28-2016 [facility] PHYSICIANS CONJUNCTIVI GROUP TIS L37011 PAIN IN 06-21-2016 [facility] RIGHT ARM [facility] INC K14807 PAIN IN 06-21-2016 [facility] LEFT ARM [facility] INC H88161 PAIN IN 06-21-2016 [facility] RIGHT LEG [facility] INC F15154 PAIN IN 06-21-2016 [facility] LEFT LEG [facility] INC D126 BENIGN 06-15-2016 [facility] NEOPLASM OF PHYSICIANS COLON GROUP UNSPECIFIED U59625 PERSONAL 06-15-2016 [facility] HISTORY OF PHYSICIANS COLONIC GROUP POLYPS D497 NEOPLASM OF 06-03-2016 [facility] UNS BHV PHYSICIANS ENDOCRN GROUP GLAND & OTH PART NS E201 PSEUDOHYPOP 06-03-2016 [facility] ARATHYROIDI PHYSICIANS SM GROUP G737 MYOPATHY IN 06-03-2016 [facility] DISEASES PHYSICIANS CLASSIFIED GROUP ELSEWHERE K635 POLYP OF 06-03-2016 [facility] COLON PHYSICIANS GROUP Z09 ENC F/U 06-03-2016 COMMUNITY EXAM AFTR ANESTH OF CMPL TX OTH THE BLUE THAN MALIG NEOPLSM Z1211 ENCOUNTER 06-03-2016 [facility] SCREENING PHYSICIANS MALIGNANT GROUP NEOPLASM OF COLON M859 DISORDER OF 05-20-2016 [facility] BONE PHYSICIANS DENSITY & GROUP STRUCTURE UNSPECIFIED J209 ACUTE 05-15-2016 [facility] BRONCHITIS [facility] P V34602 ENCOUNTER 04-28-2016 [facility] FOR OTHER [facility] EXAMINATION L77177 PAIN IN ARM 04-26-2016 [facility] PHYSICIANS UNSPECIFIED GROUP D15904 PAIN IN LEG 04-26-2016 [facility] PHYSICIANS UNSPECIFIED GROUP M797 FIBROMYALGI 04-26-2016 [facility] A PHYSICIANS GROUP J441 CHRONIC 04-17-2016 [facility] OBSTRUCTIVE [facility] PULMONARY INC DZ W/EXACERBAT ION 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 04-06-2016 [place] KIDNEY [facility] P N319 NEUROMUSCUL 04-06-2016 [facility] P OF BLADDER UNSPECIFIED N289 DISORDER OF 04-01-2016 [place] [facility] MEDICAL URETER IMAGING ASS UNSPECIFIED R1030 LOWER 04-01-2016 [place] ABDOMINAL MEDICAL PAIN IMAGING ASS UNSPECIFIED R3919 OTHER 04-01-2016 [place] DIFFICULTIE MEDICAL S WITH IMAGING ASS MICTURITION R1084 GENERALIZED 03-23-2016 [place] ABDOMINAL [facility] P Z720 TOBACCO USE 03-23-2016 [facility] P D07918 SPONDYLOSIS 02-27-2016 [facility] W/O RADIOLOGY MYELOPATH/R ASSOC ADICULOPATH Y LUMB RGN M545 LOW BACK 02-27-2016 [facility] PAIN RADIOLOGY ASSOC M546 PAIN IN 02-27-2016 [facility] THORACIC [facility] SPINE ASSOC Z9889 OTHER 02-23-2016 NEPHROLOGY SPECIFIED ASSOCIATES POSTPROCEDU OF [place]ERRY [facility] STATES W28564 ATHEROSCLER 02-18-2016 [facility] [place] ART HEALTH EXT MEDICAL G WNTERMIT OSIEL LT LEG Z25669 UNS 02-16-2016 [facility] [place] ART EXTREM BILATERAL LEGS I739 PERIPHERAL 02-16-2016 [facility] DISEASE UNSPECIFIED R3915 URGENCY OF 01-27-2016 [place] URINATION [facility] P J329 CHRONIC 01-15-2016 [facility] SINUSITIS PHYSICIANS UNSPECIFIED GROUP I6523 OCCLUSION & 01-01-2016 [facility] STENOSIS HEALTH BILATERAL MEDICAL G CAROTID ARTERIES E049 NONTOXIC 12-15-2015 [facility] GOITER [facility] UNSPECIFIED INC 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 I708 ATHEROSCLER 11-24-2015 [place] OSIS OF MEDICAL OTHER IMAGING ASS ARTERIES T12577 PAIN IN 11-24-2015 [place] UNSPECIFIED MEDICAL LOWER LEG IMAGING ASS I54576 OTH SPEC 11-24-2015 [facility] D/O BONE [facility] DENSITY INC STRUCTURE RT THIGH R202 PARESTHESIA 11-24-2015 [facility] OF SKIN [facility] INC Z54435 FACIAL 11-24-2015 [place] WEAKNESS MEDICAL IMAGING ASS R23768 ENCOUNTER 11-24-2015 [facility] FOR [facility] SCREENING INC FOR OSTEOPOROSI S G64 OTHER 10-28-2015 [facility] DISORDERS PHYSICIANS OF GROUP PERIPHERAL NERVOUS SYSTEM G5791 UNSPECIFIED 10-25-2015 [facility] MONONEUROPA INC THY RIGHT LOWER LIMB G5792 UNSPECIFIED 10-25-2015 [facility] [facility] MONONEUROPA INC THY LEFT LOWER LIMB J40 BRONCHITIS 10-13-2015 [place] NOT MEDICAL SPECIFIED IMAGING ASS ACUTE OR CHRONIC R0602 SHORTNESS 10-13-2015 [facility] OF BREATH MEDICAL IMAGING ASS J4531 MILD 09-30-2015 [place] PERSISTENT [facility] ASTHMA WITH INC ACUTE EXACERBATIO N I491 ATRIAL 09-09-2015 [facility] DEPOLARIZAT MEDICAL G ION R0789 OTHER CHEST 09-09-2015 [facility] PAIN HEALTH MEDICAL G E119 TYPE 2 08-21-2015 [facility] DIABETES [facility] MELLITUS MEDICAL G WITHOUT COMPLICATIO NS I4891 UNSPECIFIED 08-20-2015 [facility] FIBRILLATIO N I493 VENTRICULAR 08-20-2015 [facility] DEPOLARIZAT ION Z23 ENCOUNTER 08-20-2015 [facility] IMMUNIZATIO N J21097 OTHER LONG 08-20-2015 [facility] CURRENT DRUG THERAPY E785 HYPERLIPIDE 08-14-2015 [facility] UNSPECIFIED 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 P RESPIRATORY ABNORMALITI ES 4019 UNSPECIFIED 07-23-2015 [facility] P N 5950 ACUTE 07-22-2015 [place] CYSTITIS [facility] P 5990 URINARY 07-22-2015 [place] TRACT [facility] INFECTION INC SITE NOT SPECIFIED 36480 HEMATURIA 07-22-2015 [place] UNSPECIFIED MEM [facility]OS[facility] INC 53927 CHEST PAIN 07-10-2015 [place] UNSPECIFIED [facility]ICAL IMAGING ASS 2724 OTHER AND 07-03-2015 [facility] UNSPECIFIED [facility] INC HYPERLIPIDE CINDY 41598 ESOPHAGEAL 07-03-2015 [place] REFLUX MEDICAL IMAGING ASS 98667 DIARRHEA 07-03-2015 [place] [facility] 7906 OTHER 07-03-2015 [facility] ABNORMAL [facility] BLOOD INC CHEMISTRY 08631 OTHER 07-02-2015 [facility] CANDIDIASIS PHYSICIANS OF OTHER GROUP SPECIFIED SITES 5758 OTHER 07-02-2015 [facility] SPECIFIED [facility] DISORDER OF INC GALLBLADDER 7840 HEADACHE 07-02-2015 [facility] INC V1582 PERS HX 07-02-2015 [facility] TOBACCO USE [facility]OS[facility] PRESENTING INC [facility]ZAR[facility] 496 CHRONIC 06-20-2015 [facility] OBSTRUCTION [facility] NEC 39115 LUMP OR 04-24-2015 [place] MASS IN MEDICAL BREAST IMAGING ASS 2113 BENIGN 04-02-2015 [facility] NEOPLASM OF PHYSICIANS COLON GROUP 17559 REFLUX 04-02-2015 [facility] ESOPHAGITIS PHYSICIANS GROUP 59075 UNS 04-02-2015 [facility] GASTRITIS&G PHYSICIANS ASTRODUODIT GROUP IS W/O MENTION HEMORR V7651 SPECIAL 04-02-2015 [facility] SCREENING PHYSICIANS FOR GROUP MALIGNANT NEOPLASMS COLON 83203 OTHER 02-04-2015 [place] SPECIFIED [facility] P OF BLADDER 52594 OTHER 02-04-2015 [place] ABNORMALITY [facility] P URINATION 07551 OBSTRUCTIVE 01-24-2015 [place] [facility] NEUROSCIENC APNEA ES CENT 226 BENIGN 11-11-2014 [facility] NEOPLASM OF THYROID GLANDS 10558 DYSPHAGIA 11-11-2014 [facility] UNSPECIFIED 490 BRONCHITIS 11-06-2014 [facility] SPECIFIED HOSPITAL P ACUTE OR CHRONIC 66849 ASTHMA, 11-06-2014 [facility] UNSPECIFIED [facility] HOSPITAL P UNSPECIFIED STATUS 49675 OTHER 11-03-2014 [place] DISEASES OF [facility] LUNG NOT HOSPITAL P ELSEWHERE CLASSIFIED 7862 COUGH 11-03-2014 [place] [facility] 4439 UNSPECIFIED 10-07-2014 [place] PERIPHERAL MEDICAL VASCULAR IMAGING ASS DISEASE 02537 SOLITARY 09-11-2014 [place] PULMONARY [facility] NODULE INC 90037 OBSTRUCTIVE 07-24-2014 [facility] CHRONIC PHYSICIANS BRONCHITIS GROUP WITH EXACERBATIO N 486 PNEUMONIA, 07-23-2014 [facility] ORGANISM PHYSICIANS UNSPECIFIED GROUP 2449 UNSPECIFIED 07-05-2014 [facility] HYPOTHYROID HOSPITAL P ISM 4139 OTHER AND 07-05-2014 [place] UNSPECIFIED [facility] P PECTORIS 7823 EDEMA 07-05-2014 [facility] P 7295 PAIN IN 05-07-2014 [facility] SOFT [facility] TISSUES OF INC LIMB V1251 PERSONAL 05-07-2014 [facility] HISTORY, [facility]OS[facility] VENOUS INC THROMBOSIS AND EMBOLISM 15971 SHORTNESS 04-13-2014 [facility] MOH OF BREATH 16911 OTHER ANKLE 03-06-2014 [facility] SPRAIN AND [facility]OS[facility] STRAIN INC V571 OTHER 03-06-2014 [facility] PHYSICAL [facility] THERAPY INC 61478 OTHER 02-21-2014 [facility] DISEASES OF LARYNX V5869 LONG-TERM 02-18-2014 [facility] (CURRENT) [facility]OS[facility] USE OF INC OTHER MEDICATIONS 73063 HYPOCALCEMI 01-10-2014 [facility] A [facility] INC V5861 LONG-TERM 11-16-2013 [facility] (CURRENT[facility] USE OF INC ANTICOAGULA NTS 515 POSTINFLAMM 10-29-2013 [facility] ATORY NOHEMI PULMONARY FIBROSIS 4254 OTHER 10-26-2013 [facility] CARDIOMYOPA SHAGGY V143 PERSONAL 10-26-2013 [facility] ALLERGY OTH ANTI-INFECT CLAUDE AGT V145 PERSONAL 10-26-2013 [facility] ALLERGY TO NARCOTIC AGENT 69553 ACUT ND 10-08-2013 [place] [facility]END[facility]ARD [facility] P SUBSQT EPIS CARE 44440 COR 10-08-2013 [place] [facility]OS[facility] P TYPE VESSEL [place]/JUDY T 80696 OTHER CHEST 10-08-2013 [place] PAIN [facility] P V1255 PERSONAL 10-08-2013 [place] HISTORY OF [facility] P EMBOLISM 53193 OSTEOARTHRO 09-12-2013 [facility] S UNSPEC NOHEMI GEN/LOC PELV REGION&THIG H 7242 LUMBAGO 09-12-2013 [facility] NOHEMI 5110 PLEURISY 09-04-2013 [facility] WITHOUT NOHEMI MENTION EFFUS/CURRE NT TB 2869 OTHER AND 08-27-2013 WEHRMAN III UNSPECIFIED [place] COAGULATION DEFECTS 43006 OTHER 08-27-2013 WEHRMAN III CHRONIC [place] PAIN 86020 METHICILLIN 08-21-2013 [facility] RESISTANT NOHEMI STAPHYLOCOC CUS AUREUS 3682 DIPLOPIA 08-21-2013 [facility] INC 7820 DISTURBANCE 08-21-2013 [facility] OF SKIN NOHEMI SENSATION 7944 NONSPECIFIC 08-21-2013 [facility] ABNORM NOHEMI RESULTS KIDNEY FUNCTION STUDY 12386 DIAB W/O 08-18-2013 JERROD COUCH COMP TYPE II/UNS NOT STATED UNCNTRL 75428 ABDOMINAL 08-18-2013 [facility] PAIN, NOHEMI UNSPECIFIED SITE 7822 LOCALIZED 08-13-2013 [facility] SUPERFICIAL NOHEMI SWELLING MASS OR LUMP V1011 PERSONAL 08-11-2013 [facility] HISTORY NOHEMI MALIG NEOPLASM BRONCHUS&MELANY NG V711 OBSERVATION 08-11-2013 [facility] FOR NOHEMI SUSPECTED MALIGNANT NEOPLASM 7847 EPISTAXIS 08-07-2013 [facility] 20732 CORONARY 08-02-2013 JERROD COUCH ATHEROSCLER [place] CORONARY ARTERY 4821 PNEUMONIA 08-02-2013 [facility] DUE TO MEM HOSP PSEUDOMONAS INC 69915 OTHER 07-24-2013 JERONIMO DON PULMONARY EMBOLISM AND INFARCTION 4179 UNSPECIFIED 07-24-2013 [facility] DISEASE OF NOHEMI PULMONARY CIRCULATION 4239 UNSPECIFIED 07-24-2013 MERLENE MUB DISEASE OF PERICARDIUM 4242 TRICUSPID 07-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 MERLENE MUB VALVE DISORDERS SPEC NONRHEUMATI C 4280 CONGESTIVE 07-24-2013 MOAMMAR NASIMA HEART FAILURE UNSPECIFIED 4293 CARDIOMEGAL 07-24-2013 MERLENE MUB Y 64360 OTHER 07-24-2013 JERROD COUCH PULMONARY INSUFFICIEN CY NEC 58357 ACUTE AND 07-24-2013 MOAMMAR NASIMA CHRONIC RESPIRATORY FAILURE V141 PERSONAL 07-24-2013 JERROD COUCH HISTORY ALLERGY OTHER ANTIBIOTIC AGENT V4502 AUTOMATIC 07-24-2013 [facility] IMPLANTABLE NOHEMI CARDIAC DEFIBRILLAT OR SITU V550 ATTENTION 07-24-2013 [facility] TO NOHEMI TRACHEOSTOM Y V551 ATTENTION 07-24-2013 [facility] TO NOHEMI GASTROSTOMY V5882 ENCOUNTER 07-24-2013 CORRIE RHO FITTING&ADJ NON-VASCULA R CATHETER NEC 4240 MITRAL 07-22-2013 ANJUR-KAPAL VALVE I GOMEZ DISORDERS 58128 ACUT 07-21-2013 ANJUR-KAPAL MYOCARD I GOMEZ INFARCT UNS SITE EPIS CARE UNS 16789 OTHER 07-20-2013 LURDES ANASTACIA NONSPECIFIC ABNORMAL FINDING OF LUNG FIELD 61942 ACUT 07-19-2013 ALBERT IZA MYOCARD INFARCT OTH INF WALL EPIS CARE UNS 7905 OTHER 07-19-2013 GAGUA IRI NONSPECIFIC ABNORMAL SERUM ENZYME LEVELS 27792 HYPOXEMIA 07-19-2013 GAGUA IRI 67344 ACUT ND 07-17-2013 JERROD IZA SUBENDOCARD IAL INFARCT INIT EPIS CARE 25625 ACUTE 07-17-2013 BESSON IZA SYSTOLIC HEART FAILURE 5180 PULMONARY 07-17-2013 [facility] COLLAPSE NOHEMI 12676 ACUTE 07-17-2013 KYARASON IZA RESPIRATORY FAILURE 3559 MONONEURITI 06-13-2013 CHRISTINE Simon OF [place] UNSPECIFIED SITE 69087 PAIN IN 04-06-2013 [facility] JOINT, NOHEMI ANKLE AND FOOT 49889 ACHILLES 04-06-2013 PETTEY JAM BURSITIS OR TENDINITIS 86491 PLANTAR 04-06-2013 PETTEY JAM FASCIAL FIBROMATOSI S 4011 ESSENTIAL 01-01-2013 [facility] HYPERTENSIO N, BENIGN 53221 OTHER 01-01-2013 [facility] PREMATURE BEATS 4359 UNSPECIFIED 01-01-2013 [facility] TRANSIENT CEREBRAL ISCHEMIA 6272 SYMPTOMATIC 12-07-2012 HARPEL STEFANIE MENOPAUSAL/ FEMALE CLIMACTERIC STATES 4373 CEREBRAL 10-12-2012 [facility]EUR[facility], [facility] NONRUPTURED INC 4479 UNSPECIFIED 10-12-2012 [facility] DISORDERS [facility] OF ARTERIES INC AND ARTERIOLES 2409 GOITER, 10-06-2012 [facility] UNSPECIFIED NOHEMI 6259 UNSPEC 10-06-2012 [facility] W/FEMALE GENITAL ORGANS V7612 OTHER 10-06-2012 [facility] SCREENING [facility] MAMMOGRAM INC 4550 INTERNAL 09-28-2012 HARPEL STEFANIE HEMORRHOIDS WITHOUT MENTION COMP V7231 ROUTINE 09-28-2012 HAR[facility] STEFANIE GYNECOLOGIC AL EXAMINATION V7641 SCREENING 09-28-2012 HARPEL STEFANIE FOR MALIGNANT NEOPLASM OF THE RECTUM 4928 OTHER 09-08-2012 [facility] EMPHYSEMA NOHEMI 21296 MIXED 07-11-2012 GIL[facility]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 E URGE AND STRESS 95841 OCCL&STENOS 02-23-2012 [place] [facility]&BILAT [facility] PRECERBRL IMAGING ASS ART W/O INFARCT 91998 CHRONIC 02-23-2012 [facility] OBSTRUCTIVE [facility] ASTHMA INC UNSPECIFIED 7802 SYNCOPE AND 02-23-2012 [facility] COLLAPSE [facility] INC 36763 URGE 12-07-2011 [facility] INCONTINENC [facility] E INC 7866 SWELLING, 10-12-2011 [place], OR MEDICAL LUMP IN IMAGING ASS CHEST 00202 DISPLCMT 10-01-2011 [place] 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 91386 DEGEN 10-01-2011 [place] 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 V163 FAMILY 09-20-2011 [place] HISTORY OF MEDICAL MALIGNANT IMAGING ASS NEOPLASM OF BREAST 6256 FEMALE 07-20-2011 [facility] P E 22251 UNSPECIFIED 07-01-2011 [facility] E [id number] HYPERCALCEM 04-08-2011 [facility] 5853 CHRONIC 04-08-2011 [facility] STAGE III (MODERATE) 4241 AORTIC 03-26-2011 [facility] [id number] PRE-OPERATI 03-26-2011 [facility] CARDIOVASCU GROUP LAR EXAMINATION 2440 POSTSURGICA 11-30-2010 [facility] HURLEY HYPOTHYROID ISM 24842 DEHYDRATION 11-30-2010 [facility] 2768 HYPOPOTASSE 11-30-2010 LAMBERTAlfred HURLEY 7817 TETANY 11-30-2010 [facility] P 53021 ANAL OR 11-05-2010 [facility] RECTAL PAIN JACQUELINE PALMER PSC [id number] FECAL 11-05-2010 [facility] SMEARING JACQUELINE PALMER PSC [id number] DISORDER OF 10-27-2010 BRIJESH [facility] BONE AND AZUL PALMER CARTILAGE UNSPECIFIED 4279 UNSPECIFIED 09-21-2010 [facility] DYSRHYTHMIA GROUP 7859 OTHER 09-07-2010 [place] [facility] ASS CARDIOVASCU LAR SYSTEM 92260 OTH 09-07-2010 [facility] ABNORM CV INC SYSTEM FUNCTION STUDY 3569 UNSPEC 07-28-2010 [facility] HER[facility]IDI 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 7931 NONSPEC 03-05-2010 [place] [facility] LUNG FIELD 4919 UNSPECIFIED 02-23-2010 [facility] BRONCH[facility] 61906 EXTRINSIC 02-23-2010 [place] [facility] [place], SERV UNSPECIFIED FOUNDATIO 94522 UNS PROLAPS 02-10-2010 [facility] VAG DAVIS LIANG MD W/O MENTION UTERN PROLAPS 5119 UNSPECIFIED 01-07-2010 [facility] 4660 ACUTE 12-17-2009 [facility] 4559 RESIDUAL 08-26-2009 [place], HEMORRHOIDA FLORECITA L SKIN TAGS V780 SCREENING 08-26-2009 BRIJESH [place] FOR IRON AZUL PALMER DEFICIENCY ANEMIA 7804 DIZZINESS 08-22-2009 [facility] GIDDINESS [facility] 25220 OBST 07-07-2009 [facility] BR[facility] W/ACUTE BRONCHITIS 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 [facility]AS[facility] 7856 ENLARGEMENT 06-13-2009 [facility] NODES INC 4168 OTHER 06-11-2009 [facility] PULMONARY SERVICES HEART [facility] DISEASES 30670 ABDOMINAL 06-11-2009 [place] [facility] PA[facility] RIGHT SERV UPPER FOUNDATIO QUADRANT 80053 ASTHMA 06-04-2009 [facility] UNSPECIFIED [facility]ERGENCY WITH SERVICES EXACERBATIO ASSOCIATES N 7291 UNSPECIFIED 06-04-2009 [facility] MYOSITIS PROF SERV 5693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 07-18-2013 11:00 Name Value Interpretat Reference Comment ion Range O2% 98 % 07-15-2013 04:49 Name Value Interpretat Reference Comment ion Range Body 99.2 [degF] Temperature Weight 0 [oz_av] Measured Weight 58.968 kg Measured 07-15-2013 04:15 Name Value Interpretat Reference Comment ion Range BP 86 mm[Hg] Diastolic BP Systolic 156 mm[Hg] Heart 114 /min Rate/Pulse O2% 91 % Respiratory 12 /min Rate Results Labs Lab Lab Date Result Refere Interp Status Commen Order Detail nces retati t Range on Urinalysis macro (dipstick) panel in Urine (04-03-2017 13:07) Appeara Clear CLEAR complet nce of 017 ed Urine 13:07 Bilirub NEGATIV NEG complet in 017 E ed [Presen 13:07 ce] in Urine by Test strip Erythro 3+ NEG Abnorma complet cytes 017 l ed [Presen 13:07 ce] in Urine Color RED YELLOW complet of 017 ed Urine 13:07 Ketones NEGATIV NEG complet 017 E ed [Presen 13:07 ce] in Urine by Automat ed test strip Leukocy 2+ NEG Abnorma complet te 017 l ed esteras 13:07 e [Presen ce] in Urine by Automat ed test strip Nitrite NEGATIV NEG complet 017 E ed [Presen 13:07 ce] in Urine by Test strip Urobili 0.2 NEG complet nogen 017 ed [Presen 13:07 ce] in Urine by Test strip COMPREHENSIVE METABOLIC PANEL (10-29-2013 23:00) Glucose 102 74-106 complet 013 mg/dL ed Bld-mCn 23:00 c BUN 12 7-18 complet Bld-mCn 013 mg/dL ed c 23:00 Creat 1.3 0.6-1.0 complet SerPl-m 013 mg/dL ed Cnc 23:00 GFR/BSA 43 59- complet .pred 013 ML/MIN ed SerPl 23:00 Schwart z-vRate Sodium 137 136-145 complet SerPl-s 013 mmoL/L ed Cnc 23:00 Potassi 3.8 3.5-5.1 complet um 013 mmoL/L ed SerPl-s 23:00 Cnc Chlorid 98 98-107 complet e 013 mmoL/L ed SerPl-s 23:00 Cnc CO2 30 21.0-32 complet SerPl-s 013 mmoL/L .0 ed Cnc 23:00 Calcium 8.2 8.5-10. complet 013 mg/dL 1 ed SerPl-m 23:00 Cnc Prot 8.4 6.4-8.2 complet SerPl-m 013 gm/dL ed Cnc 23:00 Albumin 10-29- 3.5 3.4-5.0 complet 013 gm/dL ed SerPl-m 23:00 Cnc Globuli 10-29- 4.9 1.3-3.2 complet n 013 gm/dL ed Ser-mCn 23:00 c Albumin 10-29- 0.7 UNK 1.1-1.8 complet /Glob 013 ed SerPl-m 23:00 Rto Bilirub 0.3 0.2-1.0 complet 013 mg/dL ed SerPl-m 23:00 Cnc AST 25 U/L 15-37 complet SerPl-c 013 ed Cnc 23:00 ALT 39 U/L 30-65 complet SerPl-c 013 ed Cnc 23:00 ALP 142 U/L 50-136 complet SerPl-c 013 ed Cnc 23:00 D Dimer PPP (10-29-2013 23:00) D Dimer 312 0-400 complet PPP 013 ng/mL ed 23:00 PROTIME/INR (10-29-2013 23:00) PROTHRO 18.1 9.9-11. complet MBIN 013 SECONDS 6 ed TIME 23:00 INR Bld 1.68 0.9-1.1 complet 013 UNK ed 23:00 CBC with AUTO DIFF (10-29-2013 23:00) WBC # 10-29-2 6.6 4.8-10. complet Bld 013 K/MM3 8 ed Auto 23:00 RBC # 10-29-2 3.84 4.2-5.4 complet Bld 013 M/mm3 ed Auto 23:00 Hgb 11.2 12.2-16 complet Bld-mCn 013 g/dL .2 ed c 23:00 Hct Fr 33.3 % 37.0-47 complet Bld 013 .0 ed 23:00 MCV RBC 86.7 fl 82.2-97 complet 013 .8 ed 23:00 MCH RBC 29.2 pg 27-31.2 complet Qn 013 ed Auto 23:00 MEAN 33.7 31.8-35 complet CORPUSC 013 g/dl .4 ed ULAR 23:00 HGB CONC RDW RBC 30-2 14.4 % 11.5-17 complet Auto 013 .5 ed 23:00 Platele 10-29-2 557 142-424 complet t Bld 013 K/mm3 ed Ql 23:00 Manual MEAN 30-2 6.7 fl 7.4-10. complet PLATELE 013 4 ed T 23:00 VOLUME Granulo 30-2 63.1 % 37.0-80 complet cytes 013 .0 ed Fr Bld 23:00 Auto LYMPH % 30-2 21.2 % 10-50.0 complet 013 ed 23:00 Monocyt 30-2 8.3 % 1.7-9.3 complet es Fr 013 ed Bld 23:00 Auto Eosinop 30-2 6.7 % 0.1-12. complet hil Fr 013 0 ed Bld 23:00 Auto Basophi 30-2 0.7 % 0.1-2.0 complet ls Fr 013 ed Bld 23:00 Auto Granulo 30-2 4.2 1.8-7.8 complet cytes # 013 K/mm3 ed Bld 23:00 Auto Lymphoc 30-2 1.4 0.7-4.5 complet ytes Fr 013 K/mm3 ed Bld 23:00 Auto Monocyt 30-2 0.6 0.1-1.0 complet es # 013 K/mm3 ed Bld 23:00 Auto Eosinop 30-2 0.5 0.0-0.4 complet hil # 013 K/mm3 ed Bld 23:00 Auto Basophi 12-30-2 0.1 0-0.2 complet ls # 013 K/MM3 ed Bld 23:00 Auto URINALYSIS/COMPLETE (10-08-2013 01:15) URINE YELLOW YELLOW complet COLOR 013 ed 01:15 URINE CLEAR CLEAR complet APPEARA 013 ed NCE 01:15 URINE NEGATIV NEG complet GLUCOSE 013 E ed - 01:15 DIPSTIC K URINE NEGATIV NEG complet BILIRUB 013 E ed IN - 01:15 DIPSTIC K URINE NEGATIV NEG complet KETONE 013 E mg/dL ed 01:15 URINE Less 1.005-1 complet SPECIFI 013 than or .030 ed C 01:15 equal GRAVITY to 1.005 URINE NEGATIV NEG complet BLOOD 013 E ed 01:15 URINE 6.5 UNK 5.0-8.5 complet PH 013 ed 01:15 URINE NEGATIV NEG complet PROTEIN 013 E mg/dL ed - 01:15 DIPSTIC K URINE 0.2 NEG complet UROBILI 013 E.U./dL ed NOGEN - 01:15 DIPSTIC K URINE NEGATIV NEG complet NITRATE 013 E ed - 01:15 DIPSTIC K URINE NEGATIV NEG complet LEUK 013 E ed ESTERAS 01:15 E URINE TRACE NONE complet AMORPH 013 ed SEDIMEN 01:15 T COMPREHENSIVE METABOLIC PANEL (10-08-2013 01:00) Glucose 103 74-106 complet 013 mg/dL ed Bld-mCn 01:00 c BUN 16 7-18 complet Bld-mCn 013 mg/dL ed c 01:00 Creat 1.1 0.6-1.0 complet SerPl-m 013 mg/dL ed Cnc 01:00 GFR/BSA 53 59- complet .pred 013 ML/MIN ed SerPl 01:00 Schwart z-vRate Sodium 136 136-145 complet SerPl-s 013 mmoL/L ed Cnc 01:00 Potassi 4.2 3.5-5.1 complet um 013 mmoL/L ed SerPl-s 01:00 Cnc Chlorid 99 98-107 complet e 013 mmoL/L ed SerPl-s 01:00 Cnc CO2 28 21.0-32 complet SerPl-s 013 mmoL/L .0 ed Cnc 01:00 Calcium 7.7 8.5-10. complet 013 mg/dL 1 ed SerPl-m 01:00 Cnc Prot 8.4 6.4-8.2 complet SerPl-m 013 gm/dL ed Cnc 01:00 Albumin 3.8 3.4-5.0 complet 013 gm/dL ed SerPl-m 01:00 Cnc Globuli 4.6 1.3-3.2 complet n 013 gm/dL ed Ser-mCn 01:00 c Albumin 0.8 UNK 1.1-1.8 complet /Glob 013 ed SerPl-m 01:00 Rto Bilirub 0.4 0.2-1.0 complet 013 mg/dL ed SerPl-m 01:00 Cnc AST 63 U/L 15-37 complet SerPl-c 013 ed Cnc 01:00 ALT 79 U/L 30-65 complet SerPl-c 013 ed Cnc 01:00 ALP 123 U/L 50-136 complet SerPl-c 013 ed Cnc 01:00 PROTIME/INR (10-08-2013 01:00) PROTHRO 19.5 9.9-11. complet MBIN 013 SECONDS 6 ed TIME 01:00 INR Bld 1.81 0.9-1.1 complet 013 UNK ed 01:00 CBC with AUTO DIFF (10-08-2013 01:00) WBC # 10-08- 6.7 4.8-10. complet Bld 013 K/MM3 8 ed Auto 01:00 RBC # 10-08- 4.12 4.2-5.4 complet Bld 013 M/mm3 ed Auto 01:00 Hgb 12.2 12.2-16 complet Bld-mCn 013 g/dL .2 ed c 01:00 Hct Fr 36.5 % 37.0-47 complet Bld 013 .0 ed 01:00 MCV RBC 88.6 fl 82.2-97 complet 013 .8 ed 01:00 MCH RBC 29.6 pg 27-31.2 complet Qn 013 ed Auto 01:00 MEAN 33.4 31.8-35 complet CORPUSC 013 g/dl .4 ed ULAR 01:00 HGB CONC RDW RBC 14.2 % 11.5-17 complet Auto 013 .5 ed 01:00 Platele 451 142-424 complet t Bld 013 K/mm3 ed Ql 01:00 Manual MEAN 6.9 fl 7.4-10. complet PLATELE 013 4 ed T 01:00 VOLUME Granulo 63.4 % 37.0-80 complet cytes 013 .0 ed Fr Bld 01:00 Auto LYMPH % 20.1 % 10-50.0 complet 013 ed 01:00 Monocyt 2 8.6 % 1.7-9.3 complet es Fr 013 ed Bld 01:00 Auto Eosinop 7.3 % 0.1-12. complet hil Fr 013 0 ed Bld 01:00 Auto Basophi 2 0.7 % 0.1-2.0 complet ls Fr 013 ed Bld 01:00 Auto Granulo 2 4.3 1.8-7.8 complet cytes # 013 K/mm3 ed Bld 01:00 Auto Lymphoc 2 1.4 0.7-4.5 complet ytes Fr 013 K/mm3 ed Bld 01:00 Auto Monocyt 10-08-2 0.6 0.1-1.0 complet es # 013 K/mm3 ed Bld 01:00 Auto Eosinop 2 0.5 0.0-0.4 complet hil # 013 K/mm3 ed Bld 01:00 Auto Basophi 10-08-2 0.1 0-0.2 complet ls # 013 K/MM3 ed Bld 01:00 Auto COMPREHENSIVE METABOLIC PANEL (08-27-2013 13:00) Glucose 108 74-106 complet 013 mg/dL ed Bld-mCn 13:00 c BUN 13 7-18 complet Bld-mCn 013 mg/dL ed c 13:00 Creat 1.4 0.6-1.0 complet SerPl-m 013 mg/dL ed Cnc 13:00 ESTIMAT 42 50-200 complet ED 013 ML/MIN ed CREATIN 13:00 INE CLEARAN CE GFR 40 59- complet (ESTIMA 013 ML/MIN ed PAUL) 13:00 Sodium 137 136-145 complet SerPl-s 013 mmoL/L ed Cnc 13:00 Potassi 3.6 3.5-5.1 complet um 013 mmoL/L ed SerPl-s 13:00 Cnc Chlorid 97 98-107 complet e 013 mmoL/L ed SerPl-s 13:00 Cnc CO2 29 21.0-32 complet SerPl-s 013 mmoL/L .0 ed Cnc 13:00 Calcium 6.6 8.5-10. complet 013 mg/dL 1 ed SerPl-m 13:00 Cnc Prot 6.4 6.4-8.2 complet SerPl-m 013 gm/dL ed Cnc 13:00 Albumin 2.8 3.4-5.0 complet 013 gm/dL ed SerPl-m 13:00 Cnc Globuli 3.6 1.3-3.2 complet n 013 gm/dL ed Ser-mCn 13:00 c Albumin 0.8 UNK 1.1-1.8 complet /Glob 013 ed SerPl-m 13:00 Rto Bilirub 0.4 0.2-1.0 complet 013 mg/dL ed SerPl-m 13:00 Cnc AST 14 U/L 15-37 complet SerPl-c 013 ed Cnc 13:00 ALT 32 U/L 30-65 complet SerPl-c 013 ed Cnc 13:00 ALP 91 U/L 50-136 complet SerPl-c 013 ed Cnc 13:00 PROTIME/INR (08-27-2013 13:00) PROTHRO 08-27- 15.8 9.9-11. complet MBIN 013 SECONDS 6 ed TIME 13:00 INR Bld 1.47 0.9-1.1 complet 013 UNK ed 13:00 CBC with AUTO DIFF (08-27-2013 13:00) WBC # 08-27-2 13.5 4.8-10. complet Bld 013 K/MM3 8 ed Auto 13:00 RBC # 08-27-2 3.32 4.2-5.4 complet Bld 013 M/mm3 ed Auto 13:00 Hgb 10-28-2 10.2 12.2-16 complet Bld-mCn 013 g/dL .2 ed c 13:00 Hct Fr 31.5 % 37.0-47 complet Bld 013 .0 ed 13:00 MCV RBC 95.1 fl 82.2-97 complet 013 .8 ed 13:00 MCH RBC 30.7 pg 27-31.2 complet Qn 013 ed Auto 13:00 MEAN 32.3 31.8-35 complet CORPUSC 013 g/dl .4 ed ULAR 13:00 HGB CONC RDW RBC 14.4 % 11.5-17 complet Auto 013 .5 ed 13:00 Platele 538 142-424 complet t Bld 013 K/mm3 ed Ql 13:00 Manual MEAN 6.8 fl 7.4-10. complet PLATELE 013 4 ed T 13:00 VOLUME Granulo 66.5 % 37.0-80 complet cytes 013 .0 ed Fr Bld 13:00 Auto LYMPH % 19.1 % 10-50.0 complet 013 ed 13:00 Monocyt 2 9.3 % 1.7-9.3 complet es Fr 013 ed Bld 13:00 Auto Eosinop 08-27-2 4.6 % 0.1-12. complet hil Fr 013 0 ed Bld 13:00 Auto Basophi 08-27-2 0.5 % 0.1-2.0 complet ls Fr 013 ed Bld 13:00 Auto Granulo 08-27-2 9.0 1.8-7.8 complet cytes # 013 K/mm3 ed Bld 13:00 Auto Lymphoc 08-27-2 2.6 0.7-4.5 complet ytes Fr 013 K/mm3 ed Bld 13:00 Auto Monocyt 08-27-2 1.3 0.1-1.0 complet es # 013 K/mm3 ed Bld 13:00 Auto Eosinop 08-27-2 0.6 0.0-0.4 complet hil # 013 K/mm3 ed Bld 13:00 Auto Basophi 08-27-2 0.1 0-0.2 complet ls # 013 K/MM3 ed Bld 13:00 Auto PROTIME/INR (08-24-2013 00:25) PROTHRO 08-24- 20.1 9.9-11. complet MBIN 013 SECONDS 6 ed TIME 00:25 INR Bld 08-24-2 1.87 0.9-1.1 complet 013 UNK ed 00:25 BASIC METABOLIC PANEL (08-24-2013 00:15) Glucose 109 74-106 complet 013 mg/dL ed Bld-mCn 00:15 c BUN 14 7-18 complet Bld-mCn 013 mg/dL ed c 00:15 Creat 1.3 0.6-1.0 complet SerPl-m 013 mg/dL ed Cnc 00:15 GFR 43 59- complet (ESTIMA 013 ML/MIN ed PAUL) 00:15 Sodium 140 136-145 complet SerPl-s 013 mmoL/L ed Cnc 00:15 Potassi 4.2 3.5-5.1 complet um 013 mmoL/L ed SerPl-s 00:15 Cnc Chlorid 100 98-107 complet e 013 mmoL/L ed SerPl-s 00:15 Cnc CO2 31 21.0-32 complet SerPl-s 013 mmoL/L .0 ed Cnc 00:15 Calcium 8.1 8.5-10. complet 013 mg/dL 1 ed SerPl-m 00:15 Cnc CBC with AUTO DIFF (08-24-2013 00:15) WBC # 08-24-2 9.2 4.8-10. complet Bld 013 K/MM3 8 ed Auto 00:15 RBC # 08-24-2 3.71 4.2-5.4 complet Bld 013 M/mm3 ed Auto 00:15 Hgb 11.5 12.2-16 complet Bld-mCn 013 g/dL .2 ed c 00:15 Hct Fr 35.3 % 37.0-47 complet Bld 013 .0 ed 00:15 MCV RBC 95.0 fl 82.2-97 complet 013 .8 ed 00:15 MCH RBC 10-25-2 31.0 pg 27-31.2 complet Qn 013 ed Auto 00:15 MEAN 1025-2 32.6 31.8-35 complet CORPUSC 013 g/dl .4 ed ULAR 00:15 HGB CONC RDW RBC 1025-2 14.2 % 11.5-17 complet Auto 013 .5 ed 00:15 Platele 10-25-2 368 142-424 complet t Bld 013 K/mm3 ed Ql 00:15 Manual MEAN 25-2 7.4 fl 7.4-10. complet PLATELE 013 4 ed T 00:15 VOLUME Granulo -25-2 79.5 % 37.0-80 complet cytes 013 .0 ed Fr Bld 00:15 Auto LYMPH % 10-25-2 12.3 % 10-50.0 complet 013 ed 00:15 Monocyt 10-25-2 6.6 % 1.7-9.3 complet es Fr 013 ed Bld 00:15 Auto Eosinop 10-25-2 1.3 % 0.1-12. complet hil Fr 013 0 ed Bld 00:15 Auto Basophi 10-25-2 0.2 % 0.1-2.0 complet ls Fr 013 ed Bld 00:15 Auto Granulo 10-25-2 7.3 1.8-7.8 complet cytes # 013 K/mm3 ed Bld 00:15 Auto Lymphoc 10-25-2 1.1 0.7-4.5 complet ytes Fr 013 K/mm3 ed Bld 00:15 Auto Monocyt 10-25-2 0.6 0.1-1.0 complet es # 013 K/mm3 ed Bld 00:15 Auto Eosinop 10-25-2 0.1 0.0-0.4 complet hil # 013 K/mm3 ed Bld 00:15 Auto Basophi 10-25-2 0.0 0-0.2 complet ls # 013 K/MM3 ed Bld 00:15 Auto BASIC METABOLIC PANEL (08-23-2013 06:45) Glucose 08-23-2 114 74-106 complet 013 mg/dL ed Bld-mCn 06:45 c BUN 08-23-2 14 7-18 complet Bld-mCn 013 mg/dL ed c 06:45 Creat 24-2 1.3 0.6-1.0 complet SerPl-m 013 mg/dL ed Cnc 06:45 ESTIMAT 24-2 45 50-200 complet ED 013 ML/MIN ed CREATIN 06:45 INE CLEARAN CE GFR 08-23-2 43 59- complet (ESTIMA 013 ML/MIN ed PAUL) 06:45 Sodium 08-23-2 139 136-145 complet SerPl-s 013 mmoL/L ed Cnc 06:45 Potassi 08-23-2 4.2 3.5-5.1 complet um 013 mmoL/L ed SerPl-s 06:45 Cnc Chlorid 08-23-2 100 98-107 complet e 013 mmoL/L ed SerPl-s 06:45 Cnc CO2 08-23-2 30 21.0-32 complet SerPl-s 013 mmoL/L .0 ed Cnc 06:45 Calcium 08-23-2 7.5 8.5-10. complet 013 mg/dL 1 ed SerPl-m 06:45 Cnc CBC with AUTO DIFF (08-23-2013 06:45) WBC # 24-2 9.5 4.8-10. complet Bld 013 K/MM3 8 ed Auto 06:45 RBC # 24-2 3.46 4.2-5.4 complet Bld 013 M/mm3 ed Auto 06:45 Hgb 08-23-2 10.8 12.2-16 complet Bld-mCn 013 g/dL .2 ed c 06:45 Hct Fr 08-23-2 32.8 % 37.0-47 complet Bld 013 .0 ed 06:45 MCV RBC 08-23-2 94.8 fl 82.2-97 complet 013 .8 ed 06:45 MCH RBC 08-23-2 31.1 pg 27-31.2 complet Qn 013 ed Auto 06:45 MEAN 24-2 32.8 31.8-35 complet CORPUSC 013 g/dl .4 ed ULAR 06:45 HGB CONC RDW RBC 24-2 14.2 % 11.5-17 complet Auto 013 .5 ed 06:45 Platele -24-2 314 142-424 complet t Bld 013 K/mm3 ed Ql 06:45 Manual MEAN 24-2 7.5 fl 7.4-10. complet PLATELE 013 4 ed T 06:45 VOLUME Granulo 10-24-2 80.1 % 37.0-80 complet cytes 013 .0 ed Fr Bld 06:45 Auto LYMPH % 10-24-2 12.4 % 10-50.0 complet 013 ed 06:45 Monocyt 10-24-2 6.7 % 1.7-9.3 complet es Fr 013 ed Bld 06:45 Auto Eosinop 10-24-2 0.7 % 0.1-12. complet hil Fr 013 0 ed Bld 06:45 Auto Basophi 10-24-2 0.2 % 0.1-2.0 complet ls Fr 013 ed Bld 06:45 Auto Granulo 10-24-2 7.6 1.8-7.8 complet cytes # 013 K/mm3 ed Bld 06:45 Auto Lymphoc 10-24-2 1.2 0.7-4.5 complet ytes Fr 013 K/mm3 ed Bld 06:45 Auto Monocyt 10-24-2 0.6 0.1-1.0 complet es # 013 K/mm3 ed Bld 06:45 Auto Eosinop 10-24-2 0.1 0.0-0.4 complet hil # 013 K/mm3 ed Bld 06:45 Auto Basophi 10-24-2 0.0 0-0.2 complet ls # 013 K/MM3 ed Bld 06:45 Auto C dif Tox A+B Stl Ql (08-23-2013 04:30) C dif 08-23-2 NOT NOT complet Tox A+B 013 DETECTE DETECTE ed Stl Ql 04:30 D COMPREHENSIVE METABOLIC PANEL (08-22-2013 06:05) Glucose 128 74-106 complet 013 mg/dL ed Bld-mCn 06:05 c BUN 14 7-18 complet Bld-mCn 013 mg/dL ed c 06:05 Creat 1.6 0.6-1.0 complet SerPl-m 013 mg/dL ed Cnc 06:05 ESTIMAT 08-22- 39 50-200 complet ED 013 ML/MIN ed CREATIN 06:05 INE CLEARAN CE GFR 34 59- complet (ESTIMA 013 ML/MIN ed PAUL) 06:05 Sodium 08-22- 129 136-145 complet SerPl-s 013 mmoL/L ed Cnc 06:05 Potassi 08-22-2 4.6 3.5-5.1 complet um 013 mmoL/L ed SerPl-s 06:05 Cnc Chlorid 08-22- 92 98-107 complet e 013 mmoL/L ed SerPl-s 06:05 Cnc CO2 08-22- 26 21.0-32 complet SerPl-s 013 mmoL/L .0 ed Cnc 06:05 Calcium 08-22-2 6.9 8.5-10. complet 013 mg/dL 1 ed SerPl-m 06:05 Cnc Prot 08-22-2 6.4 6.4-8.2 complet SerPl-m 013 gm/dL ed Cnc 06:05 Albumin 08-22-2 2.7 3.4-5.0 complet 013 gm/dL ed SerPl-m 06:05 Cnc Globuli 08-22-2 3.7 1.3-3.2 complet n 013 gm/dL ed Ser-mCn 06:05 c Albumin 08-22- 0.7 UNK 1.1-1.8 complet /Glob 013 ed SerPl-m 06:05 Rto Bilirub 08-22-2 0.5 0.2-1.0 complet 013 mg/dL ed SerPl-m 06:05 Cnc AST 08-22- 40 U/L 15-37 complet SerPl-c 013 ed Cnc 06:05 ALT 08-22- 56 U/L 30-65 complet SerPl-c 013 ed Cnc 06:05 ALP 08-22- 133 U/L 50-136 complet SerPl-c 013 ed Cnc 06:05 CBC with AUTO DIFF (08-22-2013 06:05) WBC # 08-22-2 7.9 4.8-10. complet Bld 013 K/MM3 8 ed Auto 06:05 RBC # 08-22-2 3.18 4.2-5.4 complet Bld 013 M/mm3 ed Auto 06:05 Hgb 08-22-2 9.8 12.2-16 complet Bld-mCn 013 g/dL .2 ed c 06:05 Hct Fr 08-22- 29.8 % 37.0-47 complet Bld 013 .0 ed 06:05 MCV RBC 08-22-2 93.7 fl 82.2-97 complet 013 .8 ed 06:05 MCH RBC 10-23-2 30.8 pg 27-31.2 complet Qn 013 ed Auto 06:05 MEAN 10-23-2 32.9 31.8-35 complet CORPUSC 013 g/dl .4 ed ULAR 06:05 HGB CONC RDW RBC 10-23-2 13.6 % 11.5-17 complet Auto 013 .5 ed 06:05 Platele 10-23-2 251 142-424 complet t Bld 013 K/mm3 ed Ql 06:05 Manual MEAN -23-2 7.7 fl 7.4-10. complet PLATELE 013 4 ed T 06:05 VOLUME Granulo 10-23-2 80.4 % 37.0-80 complet cytes 013 .0 ed Fr Bld 06:05 Auto LYMPH % 10-23-2 12.6 % 10-50.0 complet 013 ed 06:05 Monocyt 10-23-2 6.5 % 1.7-9.3 complet es Fr 013 ed Bld 06:05 Auto Eosinop 10-23-2 0.5 % 0.1-12. complet hil Fr 013 0 ed Bld 06:05 Auto Basophi 10-23-2 0.0 % 0.1-2.0 complet ls Fr 013 ed Bld 06:05 Auto Granulo 10-23-2 6.3 1.8-7.8 complet cytes # 013 K/mm3 ed Bld 06:05 Auto Lymphoc 10-23-2 1.0 0.7-4.5 complet ytes Fr 013 K/mm3 ed Bld 06:05 Auto Monocyt 10-23-2 0.5 0.1-1.0 complet es # 013 K/mm3 ed Bld 06:05 Auto Eosinop 10-23-2 0.0 0.0-0.4 complet hil # 013 K/mm3 ed Bld 06:05 Auto Basophi 10-23-2 0.0 0-0.2 complet ls # 013 K/MM3 ed Bld 06:05 Auto CREATININE (08-21-2013 15:37) URINE 08-21-2 YELLOW YELLOW complet COLOR 013 ed 15:37 URINE 08-21-2 CLEAR CLEAR complet APPEARA 013 ed NCE 15:37 URINE 08-21-2 NEGATIV NEG complet GLUCOSE 013 E ed - 15:37 DIPSTIC K URINE 10-22-2 NEGATIV NEG complet BILIRUB 013 E ed IN - 15:37 DIPSTIC K URINE 10-22-2 NEGATIV NEG complet KETONE 013 E mg/dL ed 15:37 URINE 10-22-2 1.010 1.005-1 complet SPECIFI 013 UNK .030 ed C 15:37 GRAVITY URINE 22-2 NEGATIV NEG complet BLOOD 013 E ed 15:37 URINE 10--2 5.5 UNK 5.0-8.5 complet PH 013 ed 15:37 URINE 10-22-2 NEGATIV NEG complet PROTEIN 013 E mg/dL ed - 15:37 DIPSTIC K URINE 1022-2 0.2 NEG complet UROBILI 013 E.U./dL ed NOGEN - 15:37 DIPSTIC K URINE 1022-2 NEGATIV NEG complet NITRATE 013 E ed - 15:37 DIPSTIC K URINE 10-22-2 NEGATIV NEG complet LEUK 013 E ed ESTERAS 15:37 E URINE 10-2 OCC 0 complet RBC 013 rbc/hpf ed 15:37 URINE 10--2 OCC 0-5 complet SQUAMOU 013 #/hpf ed S CELLS 15:37 URINE 08-21-2 TRACE O complet BACTERI 013 ed A 15:37 URINE 10--2 3-5 NONE complet FINE 013 #/lpf ed GRAN 15:37 CAST URINE 08-21-2 1+ NONE complet AMORPH 013 ed SEDIMEN 15:37 T Vancomycin Trough SerPl-nc (08-21-2013 09:05) Vancomy 22.0 10.0-20 complet avery 013 mcg/mL .0 ed Trough 09:05 SerPl-m Cnc Tobramycin Ran SerPl-mCnc (08-21-2013 09:05) Tobramy 08-21- 14.8 complet avery Ran 013 ug/mL ed 09:05 SerPl-m Cnc CREATININE (08-21-2013 09:05) Creat 08-21- 3.1 0.6-1.0 complet SerPl-m 013 mg/dL ed Cnc 09:05 Creat 20 50-200 complet Cl 013 ML/MIN ed predict 09:05 ed SerPl C-G-vRa te GFR 16 59- Low complet (ESTIMA 013 ML/MIN alert ed PAUL) 09:05 PROTIME/INR (08-21-2013 09:05) PROTHRO --2 17.9 9.9-11. complet MBIN 013 SECONDS 6 ed TIME 09:05 INR Bld 08-21-2 1.66 0.9-1.1 complet 013 UNK ed 09:05 CBC with AUTO DIFF (08-21-2013 09:05) WBC # 10-22-2 5.7 4.8-10. complet Bld 013 K/MM3 8 ed Auto 09:05 RBC # 22-2 3.40 4.2-5.4 complet Bld 013 M/mm3 ed Auto 09:05 Hgb 08-21-2 10.8 12.2-16 complet Bld-mCn 013 g/dL .2 ed c 09:05 Hct Fr 08-21-2 33.2 % 37.0-47 complet Bld 013 .0 ed 09:05 MCV RBC 08-21-2 97.5 fl 82.2-97 complet 013 .8 ed 09:05 MCH RBC 08-21-2 31.6 pg 27-31.2 complet Qn 013 ed Auto 09:05 MEAN 08-21-2 32.4 31.8-35 complet CORPUSC 013 g/dl .4 ed ULAR 09:05 HGB CONC RDW RBC 08-21-2 14.3 % 11.5-17 complet Auto 013 .5 ed 09:05 Platele 08-21-2 213 142-424 complet t Bld 013 K/mm3 ed Ql 09:05 Manual MEAN 08-21-2 7.2 fl 7.4-10. complet PLATELE 013 4 ed T 09:05 VOLUME Granulo 08-21-2 67.3 % 37.0-80 complet cytes 013 .0 ed Fr Bld 09:05 Auto LYMPH % 08-21-2 14.2 % 10-50.0 complet 013 ed 09:05 Monocyt 08-21-2 5.6 % 1.7-9.3 complet es Fr 013 ed Bld 09:05 Auto Eosinop 08-21-2 12.8 % 0.1-12. complet hil Fr 013 0 ed Bld 09:05 Auto Basophi 08-21-2 0.1 % 0.1-2.0 complet ls Fr 013 ed Bld 09:05 Auto Granulo -22-2 3.8 1.8-7.8 complet cytes # 013 K/mm3 ed Bld 09:05 Auto Lymphoc -22-2 0.8 0.7-4.5 complet ytes Fr 013 K/mm3 ed Bld 09:05 Auto Monocyt 10-22-2 0.3 0.1-1.0 complet es # 013 K/mm3 ed Bld 09:05 Auto Eosinop -22-2 0.7 0.0-0.4 complet hil # 013 K/mm3 ed Bld 09:05 Auto Basophi 22-2 0.0 0-0.2 complet ls # 013 K/MM3 ed Bld 09:05 Auto Tobramycin Ran SerPl-mCnc (08-21-2013 01:05) Tobramy 08-21-2 19.4 complet vaery Ran 013 ug/mL ed 01:05 SerPl-m Cnc Tobramycin Ran SerPl-mCnc (08-20-2013 14:10) Tobramy 21-2 1.8 complet avery Ran 013 ug/mL ed 14:10 SerPl-m Cnc Tobramycin Ran SerPl-mCnc (08-20-2013 10:20) Tobramy 10-21-2 3.1 complet avery Ran 013 ug/mL ed 10:20 SerPl-m Cnc URINALYSIS/COMPLETE (08-20-2013 09:30) URINE 10-21-2 YELLOW YELLOW complet COLOR 013 ed 09:30 URINE 10-21-2 CLEAR CLEAR complet APPEARA 013 ed NCE 09:30 URINE 10-21-2 NEGATIV NEG complet GLUCOSE 013 E ed - 09:30 DIPSTIC K URINE 10-21-2 NEGATIV NEG complet BILIRUB 013 E ed IN - 09:30 DIPSTIC K URINE 10-21-2 NEGATIV NEG complet KETONE 013 E mg/dL ed 09:30 URINE 10-21-2 Less 1.005-1 complet SPECIFI 013 than or .030 ed C 09:30 equal GRAVITY to 1.005 URINE 10-21-2 NEGATIV NEG complet BLOOD 013 E ed 09:30 URINE 10-21-2 6.0 UNK 5.0-8.5 complet PH 013 ed 09:30 URINE 10-21-2 NEGATIV NEG complet PROTEIN 013 E mg/dL ed - 09:30 DIPSTIC K URINE 10-21-2 0.2 NEG complet UROBILI 013 E.U./dL ed NOGEN - 09:30 DIPSTIC K URINE 10-21-2 NEGATIV NEG complet NITRATE 013 E ed - 09:30 DIPSTIC K URINE 10-21-2 NEGATIV NEG complet LEUK 013 E ed ESTERAS 09:30 E URINE 10-21-2 OCC 0 complet RBC 013 rbc/hpf ed 09:30 URINE 10-21-2 5-10 O complet WBC 013 wbc/hpf ed 09:30 URINE 10-21-2 OCC 0-5 complet SQUAMOU 013 #/hpf ed S CELLS 09:30 URINE 10-21-2 OCC NONE complet HYALINE 013 #/lpf ed CAST 09:30 CBC with Manual DIFF (08-19-2013 08:55) WBC # 10-20-2 9.0 4.8-10. complet Bld 013 K/MM3 8 ed Auto 08:55 RBC # 10-20-2 4.05 4.2-5.4 complet Bld 013 M/mm3 ed Auto 08:55 Hgb 10-20-2 12.4 12.2-16 complet Bld-mCn 013 g/dL .2 ed c 08:55 Hct Fr 10-20-2 38.6 % 37.0-47 complet Bld 013 .0 ed 08:55 MCV RBC 10-20-2 95.4 fl 82.2-97 complet 013 .8 ed 08:55 MCH RBC 10-20-2 30.8 pg 27-31.2 complet Qn 013 ed Auto 08:55 MEAN 10-20-2 32.2 31.8-35 complet CORPUSC 013 g/dl .4 ed ULAR 08:55 HGB CONC RDW RBC 10-20-2 14.8 % 11.5-17 complet Auto 013 .5 ed 08:55 Platele 10-20-2 298 142-424 complet t Bld 013 K/mm3 ed Ql 08:55 Manual MEAN 10-20-2 7.5 fl 7.4-10. complet PLATELE 013 4 ed T 08:55 VOLUME Granulo 10-20-2 72.7 % 37.0-80 complet cytes 013 .0 ed Fr Bld 08:55 Auto LYMPH % 10-20-2 13.0 % 10-50.0 complet 013 ed 08:55 Monocyt 10-20-2 5.7 % 1.7-9.3 complet es Fr 013 ed Bld 08:55 Auto Eosinop 10-20-2 8.5 % 0.1-12. complet hil Fr 013 0 ed Bld 08:55 Auto Basophi 10-20-2 0.2 % 0.1-2.0 complet ls Fr 013 ed Bld 08:55 Auto Granulo 10-20-2 6.5 1.8-7.8 complet cytes # 013 K/mm3 ed Bld 08:55 Auto Lymphoc 10-20-2 1.2 0.7-4.5 complet ytes Fr 013 K/mm3 ed Bld 08:55 Auto Monocyt 10-20-2 0.5 0.1-1.0 complet es # 013 K/mm3 ed Bld 08:55 Auto Eosinop 10-20-2 0.8 0.0-0.4 complet hil # 013 K/mm3 ed Bld 08:55 Auto Basophi 10-20-2 0.0 0-0.2 complet ls # 013 K/MM3 ed Bld 08:55 Auto TOTAL 10-20-2 100 complet CELLS 013 #CELLS ed COUNTED 08:55 NEUTROP 10-20-2 64 % 42-76 complet HILS 013 ed 08:55 Neuts 10-20-2 7 % 0-8 complet Band Fr 013 ed Bld 08:55 Auto LYMPH 10-20-2 18 % 10-50 complet 013 ed 08:55 Variant 10-20-2 1 % 0-5 complet Lymphs 013 ed Fr Bld 08:55 Manual MONOCYT 10-20-2 10 % 2-9 complet E 013 ed 08:55 PLATELE 10-20-2 NORMAL complet T 013 ed ESTIMAT 08:55 E Anisocy 10-20-2 1+ complet tosis 013 ed Bld Ql 08:55 Smear MYCOPLASMA IGM (RAPID) (08-19-2013 08:55) MYCOPLA 10-20-2 NON-ABDULAZIZ NONREAC complet SMA IGM 013 CTIVE TIVE ed 08:55 (RAPID) Vancomycin Trough [facility] (08-18-2013 09:30) Vancomy 10-19-2 18.4 10.0-20 complet avery 013 mcg/mL .0 ed Trough 09:30 SerPl-m Cnc COMPREHENSIVE METABOLIC PANEL (08-18-2013 06:40) Glucose 08-18- 98 74-106 complet 013 mg/dL ed Bld-mCn 06:40 c BUN 08-18-2 6 mg/dL 7-18 complet Bld-mCn 013 ed c 06:40 Creat 08-18-2 1.0 0.6-1.0 complet SerPl-m 013 mg/dL ed Cnc 06:40 ESTIMAT 08-18-2 62 50-200 complet ED 013 ML/MIN ed CREATIN 06:40 INE CLEARAN CE GFR 59 59- complet (ESTIMA 013 ML/MIN ed PAUL) 06:40 Sodium 08-18- 139 136-145 complet SerPl-s 013 mmoL/L ed Cnc 06:40 Potassi 08-18- 3.9 3.5-5.1 complet um 013 mmoL/L ed SerPl-s 06:40 Cnc Chlorid 103 98-107 complet e 013 mmoL/L ed SerPl-s 06:40 Cnc CO2 08-18- 26 21.0-32 complet SerPl-s 013 mmoL/L .0 ed Cnc 06:40 Calcium 08-18-2 6.6 8.5-10. complet 013 mg/dL 1 ed SerPl-m 06:40 Cnc Prot 08-18-2 5.8 6.4-8.2 complet SerPl-m 013 gm/dL ed Cnc 06:40 Albumin 08-18-2 3.0 3.4-5.0 complet 013 gm/dL ed SerPl-m 06:40 Cnc Globuli 08-18-2 2.8 1.3-3.2 complet n 013 gm/dL ed Ser-mCn 06:40 c Albumin 08-18-2 1.1 UNK 1.1-1.8 complet /Glob 013 ed SerPl-m 06:40 Rto Bilirub 08-18-2 0.4 0.2-1.0 complet 013 mg/dL ed SerPl-m 06:40 Cnc AST 08-18- 42 U/L 15-37 complet SerPl-c 013 ed Cnc 06:40 ALT 08-18-2 51 U/L 30-65 complet SerPl-c 013 ed Cnc 06:40 ALP 10-19-2 101 U/L 50-136 complet SerPl-c 013 ed Cnc 06:40 PROTIME/INR (08-18-2013 06:40) PROTHRO 10-19-2 33.9 9.9-11. complet MBIN 013 SECONDS 6 ed TIME 06:40 INR Bld 1019-2 3.13 0.9-1.1 complet 013 UNK ed 06:40 CBC with AUTO DIFF (08-18-2013 06:40) WBC # 10-19-2 5.5 4.8-10. complet Bld 013 K/MM3 8 ed Auto 06:40 RBC # 10-19-2 3.46 4.2-5.4 complet Bld 013 M/mm3 ed Auto 06:40 Hgb 10-19-2 10.7 12.2-16 complet Bld-mCn 013 g/dL .2 ed c 06:40 Hct Fr 10-19-2 33.3 % 37.0-47 complet Bld 013 .0 ed 06:40 MCV RBC 10-19-2 96.1 fl 82.2-97 complet 013 .8 ed 06:40 MCH RBC 10-19-2 30.8 pg 27-31.2 complet Qn 013 ed Auto 06:40 MEAN 10-19-2 32.0 31.8-35 complet CORPUSC 013 g/dl .4 ed ULAR 06:40 HGB CONC RDW RBC 10-19-2 14.4 % 11.5-17 complet Auto 013 .5 ed 06:40 Platele 10-19-2 280 142-424 complet t Bld 013 K/mm3 ed Ql 06:40 Manual MEAN 10-19-2 7.1 fl 7.4-10. complet PLATELE 013 4 ed T 06:40 VOLUME Granulo 10-19-2 58.3 % 37.0-80 complet cytes 013 .0 ed Fr Bld 06:40 Auto LYMPH % 10-19-2 21.8 % 10-50.0 complet 013 ed 06:40 Monocyt 10-19-2 8.1 % 1.7-9.3 complet es Fr 013 ed Bld 06:40 Auto Eosinop 10-19-2 11.5 % 0.1-12. complet hil Fr 013 0 ed Bld 06:40 Auto Basophi 10-19-2 0.3 % 0.1-2.0 complet ls Fr 013 ed Bld 06:40 Auto Granulo 08-18-2 3.2 1.8-7.8 complet cytes # 013 K/mm3 ed Bld 06:40 Auto Lymphoc 08-18-2 1.2 0.7-4.5 complet ytes Fr 013 K/mm3 ed Bld 06:40 Auto Monocyt 08-18-2 0.5 0.1-1.0 complet es # 013 K/mm3 ed Bld 06:40 Auto Eosinop 08-18-2 0.6 0.0-0.4 complet hil # 013 K/mm3 ed Bld 06:40 Auto Basophi 08-18-2 0.0 0-0.2 complet ls # 013 K/MM3 ed Bld 06:40 Auto PROTIME/INR (08-15-2013 06:00) PROTHRO 08-15- 24.8 9.9-11. complet MBIN 013 SECONDS 6 ed TIME 06:00 INR Bld 2.30 0.9-1.1 complet 013 UNK ed 06:00 PROTIME/INR (08-14-2013 11:35) PROTHRO 08-14-2 24.8 9.9-11. complet MBIN 013 SECONDS 6 ed TIME 11:35 INR Bld 2.30 0.9-1.1 complet 013 UNK ed 11:35 BASIC METABOLIC PANEL (08-13-2013 10:30) Glucose 88 74-106 complet 013 mg/dL ed Bld-mCn 10:30 c BUN 6 mg/dL 7-18 complet Bld-mCn 013 ed c 10:30 Creat 1.0 0.6-1.0 complet SerPl-m 013 mg/dL ed Cnc 10:30 ESTIMAT 63 50-200 complet ED 013 ML/MIN ed CREATIN 10:30 INE CLEARAN CE GFR 59 59- complet (ESTIMA 013 ML/MIN ed PAUL) 10:30 Sodium 143 136-145 complet SerPl-s 013 mmoL/L ed Cnc 10:30 Potassi 4.1 3.5-5.1 complet um 013 mmoL/L ed SerPl-s 10:30 Cnc Chlorid 101 98-107 complet e 013 mmoL/L ed SerPl-s 10:30 Cnc CO2 32 21.0-32 complet SerPl-s 013 mmoL/L .0 ed Cnc 10:30 Calcium 7.6 8.5-10. complet 013 mg/dL 1 ed SerPl-m 10:30 Cnc Vancomycin Trough SerPl-mCnc (08-13-2013 10:30) Vancomy 15.1 10.0-20 complet avery 013 mcg/mL .0 ed Trough 10:30 SerPl-m Cnc PROTIME/INR (08-13-2013 10:30) PROTHRO 17.7 9.9-11. complet MBIN 013 SECONDS 6 ed TIME 10:30 INR Bld 1.65 0.9-1.1 complet 013 UNK ed 10:30 BASIC METABOLIC PANEL (08-12-2013 10:00) Glucose 83 74-106 complet 013 mg/dL ed Bld-mCn 10:00 c BUN 2 mg/dL 7-18 complet Bld-mCn 013 ed c 10:00 Creat 1.0 0.6-1.0 complet SerPl-m 013 mg/dL ed Cnc 10:00 ESTIMAT 62 50-200 complet ED 013 ML/MIN ed CREATIN 10:00 INE CLEARAN CE GFR 59 59- complet (ESTIMA 013 ML/MIN ed PAUL) 10:00 Sodium 140 136-145 complet SerPl-s 013 mmoL/L ed Cnc 10:00 Potassi 4.1 3.5-5.1 complet um 013 mmoL/L ed SerPl-s 10:00 Cnc Chlorid 103 98-107 complet e 013 mmoL/L ed SerPl-s 10:00 Cnc CO2 31 21.0-32 complet SerPl-s 013 mmoL/L .0 ed Cnc 10:00 Calcium 7.4 8.5-10. complet 013 mg/dL 1 ed SerPl-m 10:00 Cnc Vancomycin Trough SerPl-mCnc (08-12-2013 10:00) Vancomy 6.7 10.0-20 complet avery 013 mcg/mL .0 ed Trough 10:00 SerPl-m Cnc PROTIME/INR (08-12-2013 10:00) PROTHRO 14.4 9.9-11. complet MBIN 013 SECONDS 6 ed TIME 10:00 INR Bld 1.34 0.9-1.1 complet 013 UNK ed 10:00 BNP Bld-mCnc (08-11-2013 08:25) BNP 229 0-100 complet Bld-mCn 013 pg/mL ed c 08:25 BASIC METABOLIC PANEL (08-10-2013 09:10) Glucose 72 74-106 complet 013 mg/dL ed Bld-mCn 09:10 c BUN 3 mg/dL 7-18 complet Bld-mCn 013 ed c 09:10 Creat 1.0 0.6-1.0 complet SerPl-m 013 mg/dL ed Cnc 09:10 ESTIMAT 60 50-200 complet ED 013 ML/MIN ed CREATIN 09:10 INE CLEARAN CE GFR 59 59- complet (ESTIMA 013 ML/MIN ed PAUL) 09:10 Sodium 142 136-145 complet SerPl-s 013 mmoL/L ed Cnc 09:10 Potassi 3.4 3.5-5.1 complet um 013 mmoL/L ed SerPl-s 09:10 Cnc Chlorid 105 98-107 complet e 013 mmoL/L ed SerPl-s 09:10 Cnc CO2 24 21.0-32 complet SerPl-s 013 mmoL/L .0 ed Cnc 09:10 Calcium 6.7 8.5-10. complet 013 mg/dL 1 ed SerPl-m 09:10 Cnc Magnesium SerPl-mCnc (08-10-2013 09:10) Magnesi 08-10- 1.3 1.4-2.2 complet um 013 mg/dL ed SerPl-m 09:10 Cnc PROTIME/INR (08-10-2013 09:10) PROTHRO 10-11-2 11.2 9.9-11. complet MBIN 013 SECONDS 6 ed TIME 09:10 INR Bld 10-11-2 1.05 0.9-1.1 complet 013 UNK ed 09:10 CBC with AUTO DIFF (08-10-2013 09:10) WBC # 10-11-2 6.8 4.8-10. complet Bld 013 K/MM3 8 ed Auto 09:10 RBC # 10-11-2 3.77 4.2-5.4 complet Bld 013 M/mm3 ed Auto 09:10 Hgb 10-11-2 12.0 12.2-16 complet Bld-mCn 013 g/dL .2 ed c 09:10 Hct Fr 10-11-2 37.0 % 37.0-47 complet Bld 013 .0 ed 09:10 MCV RBC 10-11-2 98.3 fl 82.2-97 complet 013 .8 ed 09:10 MCH RBC -11-2 31.7 pg 27-31.2 complet Qn 013 ed Auto 09:10 MEAN 10-11-2 32.3 31.8-35 complet CORPUSC 013 g/dl .4 ed ULAR 09:10 HGB CONC RDW RBC 10-11-2 14.7 % 11.5-17 complet Auto 013 .5 ed 09:10 Platele 10-11-2 388 142-424 complet t Bld 013 K/mm3 ed Ql 09:10 Manual MEAN 10-11-2 7.3 fl 7.4-10. complet PLATELE 013 4 ed T 09:10 VOLUME Granulo 10-11-2 58.1 % 37.0-80 complet cytes 013 .0 ed Fr Bld 09:10 Auto LYMPH % 10-11-2 21.9 % 10-50.0 complet 013 ed 09:10 Monocyt 10-11-2 8.3 % 1.7-9.3 complet es Fr 013 ed Bld 09:10 Auto Eosinop 10-11-2 11.1 % 0.1-12. complet hil Fr 013 0 ed Bld 09:10 Auto Basophi 10-11-2 0.6 % 0.1-2.0 complet ls Fr 013 ed Bld 09:10 Auto Granulo 10-11-2 3.9 1.8-7.8 complet cytes # 013 K/mm3 ed Bld 09:10 Auto Lymphoc 08-10-2 1.5 0.7-4.5 complet ytes Fr 013 K/mm3 ed Bld 09:10 Auto Monocyt 08-10-2 0.6 0.1-1.0 complet es # 013 K/mm3 ed Bld 09:10 Auto Eosinop 11-2 0.8 0.0-0.4 complet hil # 013 K/mm3 ed Bld 09:10 Auto Basophi 2 0.0 0-0.2 complet ls # 013 K/MM3 ed Bld 09:10 Auto URINALYSIS/COMPLETE (08-08-2013 18:00) URINE GITA YELLOW complet COLOR 013 ed 18:00 URINE CLEAR CLEAR complet APPEARA 013 ed NCE 18:00 URINE NEGATIV NEG complet GLUCOSE 013 E ed - 18:00 DIPSTIC K URINE NEGATIV NEG complet BILIRUB 013 E ed IN - 18:00 DIPSTIC K URINE NEGATIV NEG complet KETONE 013 E mg/dL ed 18:00 URINE 1.010 1.005-1 complet SPECIFI 013 UNK .030 ed C 18:00 GRAVITY URINE 3+ NEG complet BLOOD 013 ed 18:00 URINE 7.0 UNK 5.0-8.5 complet PH 013 ed 18:00 URINE 1+ NEG complet PROTEIN 013 mg/dL ed - 18:00 DIPSTIC K URINE 0.2 NEG complet UROBILI 013 E.U./dL ed NOGEN - 18:00 DIPSTIC K URINE NEGATIV NEG complet NITRATE 013 E ed - 18:00 DIPSTIC K URINE 1+ NEG complet LEUK 013 ed ESTERAS 18:00 E URINE TNTC 0 complet RBC 013 rbc/hpf ed 18:00 URINE 1020 O complet WBC 013 wbc/hpf ed 18:00 URINE 10-20 0-5 complet SQUAMOU 013 #/hpf ed S CELLS 18:00 COMPREHENSIVE METABOLIC PANEL (08-08-2013 17:00) Glucose 103 74-106 complet 013 mg/dL ed Bld-mCn 17:00 c BUN 5 mg/dL 7-18 complet Bld-mCn 013 ed c 17:00 Creat 1.0 0.6-1.0 complet SerPl-m 013 mg/dL ed Cnc 17:00 ESTIMAT 59 50-200 complet ED 013 ML/MIN ed CREATIN 17:00 INE CLEARAN CE GFR 59 59- complet (ESTIMA 013 ML/MIN ed PAUL) 17:00 Sodium 141 136-145 complet SerPl-s 013 mmoL/L ed Cnc 17:00 Potassi 3.1 3.5-5.1 complet um 013 mmoL/L ed SerPl-s 17:00 Cnc Chlorid 103 98-107 complet e 013 mmoL/L ed SerPl-s 17:00 Cnc CO2 26 21.0-32 complet SerPl-s 013 mmoL/L .0 ed Cnc 17:00 Calcium 7.0 8.5-10. complet 013 mg/dL 1 ed SerPl-m 17:00 Cnc Prot 6.8 6.4-8.2 complet SerPl-m 013 gm/dL ed Cnc 17:00 Albumin 3.6 3.4-5.0 complet 013 gm/dL ed SerPl-m 17:00 Cnc Globuli 3.2 1.3-3.2 complet n 013 gm/dL ed Ser-mCn 17:00 c Albumin 1.1 UNK 1.1-1.8 complet /Glob 013 ed SerPl-m 17:00 Rto Bilirub 0.6 0.2-1.0 complet 013 mg/dL ed SerPl-m 17:00 Cnc AST 14 U/L 15-37 complet SerPl-c 013 ed Cnc 17:00 ALT 28 U/L 30-65 complet SerPl-c 013 ed Cnc 17:00 ALP 83 U/L 50-136 complet SerPl-c 013 ed Cnc 17:00 PROTIME/INR (08-08-2013 17:00) PROTHRO 12.5 9.9-11. complet MBIN 013 SECONDS 6 ed TIME 17:00 INR Bld 1.17 0.9-1.1 complet 013 UNK ed 17:00 ACT PARTIAL THROMBO TIME (08-08-2013 17:00) ACT 33.4 25.3-32 complet PARTIAL 013 SECONDS .0 ed 17:00 THROMBO TIME CBC with AUTO DIFF (08-08-2013 17:00) WBC # 12.6 4.8-10. complet Bld 013 K/MM3 8 ed Auto 17:00 RBC # 4.03 4.2-5.4 complet Bld 013 M/mm3 ed Auto 17:00 Hgb 12.4 12.2-16 complet Bld-mCn 013 g/dL .2 ed c 17:00 Hct Fr 38.9 % 37.0-47 complet Bld 013 .0 ed 17:00 MCV RBC 96.7 fl 82.2-97 complet 013 .8 ed 17:00 MCH RBC 30.7 pg 27-31.2 complet Qn 013 ed Auto 17:00 MEAN 31.7 31.8-35 complet CORPUSC 013 g/dl .4 ed ULAR 17:00 HGB CONC RDW RBC 14.3 % 11.5-17 complet Auto 013 .5 ed 17:00 Platele 455 142-424 complet t Bld 013 K/mm3 ed Ql 17:00 Manual MEAN 7.4 fl 7.4-10. complet PLATELE 013 4 ed T 17:00 VOLUME Granulo 82.8 % 37.0-80 complet cytes 013 .0 ed Fr Bld 17:00 Auto LYMPH % 9.6 % 10-50.0 complet 013 ed 17:00 Monocyt 4.1 % 1.7-9.3 complet es Fr 013 ed Bld 17:00 Auto Eosinop 3.3 % 0.1-12. complet hil Fr 013 0 ed Bld 17:00 Auto Basophi 2 0.3 % 0.1-2.0 complet ls Fr 013 ed Bld 17:00 Auto Granulo 10.4 1.8-7.8 complet cytes # 013 K/mm3 ed Bld 17:00 Auto Lymphoc 1.2 0.7-4.5 complet ytes Fr 013 K/mm3 ed Bld 17:00 Auto Monocyt 2 0.5 0.1-1.0 complet es # 013 K/mm3 ed Bld 17:00 Auto Eosinop 0.4 0.0-0.4 complet hil # 013 K/mm3 ed Bld 17:00 Auto Basophi 2 0.0 0-0.2 complet ls # 013 K/MM3 ed Bld 17:00 Auto URINALYSIS/COMPLETE (07-24-2013 02:15) URINE -24-2 YELLOW YELLOW complet COLOR 013 ed 02:15 URINE -24-2 CLEAR CLEAR complet APPEARA 013 ed NCE 02:15 URINE -24-2 NEGATIV NEG complet GLUCOSE 013 E ed - 02:15 DIPSTIC K URINE -24-2 NEGATIV NEG complet BILIRUB 013 E ed IN - 02:15 DIPSTIC K URINE -24-2 NEGATIV NEG complet KETONE 013 E mg/dL ed 02:15 URINE -24-2 1.010 1.005-1 complet SPECIFI 013 UNK .030 ed C 02:15 GRAVITY URINE 24-2 1+ NEG complet BLOOD 013 ed 02:15 URINE 24-2 5.5 UNK 5.0-8.5 complet PH 013 ed 02:15 URINE -24-2 NEGATIV NEG complet PROTEIN 013 E mg/dL ed - 02:15 DIPSTIC K URINE -24-2 0.2 NEG complet UROBILI 013 E.U./dL ed NOGEN - 02:15 DIPSTIC K URINE -24-2 NEGATIV NEG complet NITRATE 013 E ed - 02:15 DIPSTIC K URINE -24-2 NEGATIV NEG complet LEUK 013 E ed ESTERAS 02:15 E URINE -24-2 OCC 0 complet RBC 013 rbc/hpf ed 02:15 URINE 09-24-2 OCC O complet WBC 013 wbc/hpf ed 02:15 URINE 5-10 0-5 complet SQUAMOU 013 #/hpf ed S CELLS 02:15 ARTERIAL BLOOD GAS (07-24-2013 01:43) ARTERIA 07-24- 7.19 7.35-7. Low complet L PH 013 MMOL/L 45 alert ed 01:43 ARTERIA 89.3 35.0-45 complet L PCO2 013 MMHG .0 ed 01:43 ARTERIA 209.8 80-100 complet L PO2 013 MMHG ed 01:43 ARTERIA 33.5 22.0-26 complet L HCO3 013 MMOL/L .0 ed 01:43 ARTERIA 36.2 23-27 complet L TCO2 013 MMOL/L ed 01:43 Base 5.0 -2.4-+2 complet excess 013 MMOL/L .3 ed BldA-sC 01:43 nc ARTERIA 3 % 90-100 Low complet L O2 013 alert ed SAT 01:43 OXYGEN 100% complet 013 ed 01:43 Arteria ACCEPTA complet l 013 BLE ed patency 01:43 Wrist a BASIC METABOLIC PANEL (07-24-2013 01:30) Glucose 151 74-106 complet 013 mg/dL ed Bld-mCn 01:30 c BUN 14 7-18 complet Bld-mCn 013 mg/dL ed c 01:30 Creat 1.3 0.6-1.0 complet SerPl-m 013 mg/dL ed Cnc 01:30 GFR 43 59- complet (ESTIMA 013 ML/MIN ed PAUL) 01:30 Sodium 135 136-145 complet SerPl-s 013 mmoL/L ed Cnc 01:30 Potassi 5.2 3.5-5.1 complet um 013 mmoL/L ed SerPl-s 01:30 Cnc Chlorid 95 98-107 complet e 013 mmoL/L ed SerPl-s 01:30 Cnc CO2 37 21.0-32 complet SerPl-s 013 mmoL/L .0 ed Cnc 01:30 Calcium -24-2 8.9 8.5-10. complet 013 mg/dL 1 ed SerPl-m 01:30 Cnc BNP Bld-mCnc (07-24-2013 01:30) BNP -24-2 382 0-100 complet Bld-mCn 013 pg/mL ed c 01:30 TROPONIN I (07-24-2013 01:30) TROPONI 24-2 0.03 0.00-0. complet N I 013 ng/mL 06 ed 01:30 CBC with AUTO DIFF (07-24-2013 01:30) WBC # 24-2 16.5 4.8-10. complet Bld 013 K/MM3 8 ed Auto 01:30 RBC # 24-2 4.72 4.2-5.4 complet Bld 013 M/mm3 ed Auto 01:30 Hgb -24-2 14.8 12.2-16 complet Bld-mCn 013 g/dL .2 ed c 01:30 Hct Fr 07-24-2 45.6 % 37.0-47 complet Bld 013 .0 ed 01:30 MCV RBC 24-2 96.5 fl 82.2-97 complet 013 .8 ed 01:30 MCH RBC 24-2 31.3 pg 27-31.2 complet Qn 013 ed Auto 01:30 MEAN 24-2 32.4 31.8-35 complet CORPUSC 013 g/dl .4 ed ULAR 01:30 HGB CONC RDW RBC 24-2 13.7 % 11.5-17 complet Auto 013 .5 ed 01:30 Platele -24-2 570 142-424 complet t Bld 013 K/mm3 ed Ql 01:30 Manual MEAN 24-2 7.4 fl 7.4-10. complet PLATELE 013 4 ed T 01:30 VOLUME Granulo 24-2 65.3 % 37.0-80 complet cytes 013 .0 ed Fr Bld 01:30 Auto LYMPH % -24-2 22.6 % 10-50.0 complet 013 ed 01:30 Monocyt -24-2 7.0 % 1.7-9.3 complet es Fr 013 ed Bld 01:30 Auto Eosinop -24-2 4.9 % 0.1-12. complet hil Fr 013 0 ed Bld 01:30 Auto Basophi 24-2 0.2 % 0.1-2.0 complet ls Fr 013 ed Bld 01:30 Auto Granulo 07-24-2 10.8 1.8-7.8 complet cytes # 013 K/mm3 ed Bld 01:30 Auto Lymphoc 07-24-2 3.7 0.7-4.5 complet ytes Fr 013 K/mm3 ed Bld 01:30 Auto Monocyt 07-24-2 1.2 0.1-1.0 complet es # 013 K/mm3 ed Bld 01:30 Auto Eosinop 07-24-2 0.8 0.0-0.4 complet hil # 013 K/mm3 ed Bld 01:30 Auto Basophi 07-24-2 0.0 0-0.2 complet ls # 013 K/MM3 ed Bld 01:30 Auto BASIC METABOLIC PANEL (07-18-2013 05:00) Glucose 139 74-106 complet 013 mg/dL ed Bld-mCn 05:00 c BUN 12 7-18 complet Bld-mCn 013 mg/dL ed c 05:00 Creat 1.1 0.6-1.0 complet SerPl-m 013 mg/dL ed Cnc 05:00 ESTIMAT 59 50-200 complet ED 013 ML/MIN ed CREATIN 05:00 INE CLEARAN CE GFR 53 59- complet (ESTIMA 013 ML/MIN ed PAUL) 05:00 Sodium 141 136-145 complet SerPl-s 013 mmoL/L ed Cnc 05:00 Potassi 3.5 3.5-5.1 complet um 013 mmoL/L ed SerPl-s 05:00 Cnc Chlorid 100 98-107 complet e 013 mmoL/L ed SerPl-s 05:00 Cnc CO2 34 21.0-32 complet SerPl-s 013 mmoL/L .0 ed Cnc 05:00 Calcium 6.6 8.5-10. complet 013 mg/dL 1 ed SerPl-m 05:00 Cnc CBC with AUTO DIFF (07-18-2013 05:00) WBC # 09-18-2 18.4 4.8-10. complet Bld 013 K/MM3 8 ed Auto 05:00 RBC # 09-18-2 4.23 4.2-5.4 complet Bld 013 M/mm3 ed Auto 05:00 Hgb -18-2 13.3 12.2-16 complet Bld-mCn 013 g/dL .2 ed c 05:00 Hct Fr 18-2 40.4 % 37.0-47 complet Bld 013 .0 ed 05:00 MCV RBC 18-2 95.6 fl 82.2-97 complet 013 .8 ed 05:00 MCH RBC 18-2 31.5 pg 27-31.2 complet Qn 013 ed Auto 05:00 MEAN 18-2 32.9 31.8-35 complet CORPUSC 013 g/dl .4 ed ULAR 05:00 HGB CONC RDW RBC 18-2 13.7 % 11.5-17 complet Auto 013 .5 ed 05:00 Platele -18-2 379 142-424 complet t Bld 013 K/mm3 ed Ql 05:00 Manual MEAN 07-18-2 7.7 fl 7.4-10. complet PLATELE 013 4 ed T 05:00 VOLUME Granulo 18-2 91.4 % 37.0-80 complet cytes 013 .0 ed Fr Bld 05:00 Auto LYMPH % -18-2 4.0 % 10-50.0 complet 013 ed 05:00 Monocyt -18-2 4.0 % 1.7-9.3 complet es Fr 013 ed Bld 05:00 Auto Eosinop -18-2 0.5 % 0.1-12. complet hil Fr 013 0 ed Bld 05:00 Auto Basophi -18-2 0.0 % 0.1-2.0 complet ls Fr 013 ed Bld 05:00 Auto Granulo -18-2 16.8 1.8-7.8 complet cytes # 013 K/mm3 ed Bld 05:00 Auto Lymphoc -18-2 0.8 0.7-4.5 complet ytes Fr 013 K/mm3 ed Bld 05:00 Auto Monocyt 09-18-2 0.7 0.1-1.0 complet es # 013 K/mm3 ed Bld 05:00 Auto Eosinop 2 0.1 0.0-0.4 complet hil # 013 K/mm3 ed Bld 05:00 Auto Basophi 07-18-2 0.0 0-0.2 complet ls # 013 K/MM3 ed Bld 05:00 Auto Tobramycin Ran SerPl-mCnc (07-17-2013 21:15) Tobramy 07-17-2 2.3 complet avery Ran 013 ug/mL ed 21:15 SerPl-m Cnc COMPREHENSIVE METABOLIC PANEL (07-17-2013 21:15) Glucose 312 74-106 complet 013 mg/dL ed Bld-mCn 21:15 c BUN 11 7-18 complet Bld-mCn 013 mg/dL ed c 21:15 Creat 1.1 0.6-1.0 complet SerPl-m 013 mg/dL ed Cnc 21:15 ESTIMAT 59 50-200 complet ED 013 ML/MIN ed CREATIN 21:15 INE CLEARAN CE GFR 53 59- complet (ESTIMA 013 ML/MIN ed PAUL) 21:15 Sodium 139 136-145 complet SerPl-s 013 mmoL/L ed Cnc 21:15 Potassi 4.3 3.5-5.1 complet um 013 mmoL/L ed SerPl-s 21:15 Cnc Chlorid 102 98-107 complet e 013 mmoL/L ed SerPl-s 21:15 Cnc CO2 26 21.0-32 complet SerPl-s 013 mmoL/L .0 ed Cnc 21:15 Calcium 07-17- 6.6 8.5-10. complet 013 mg/dL 1 ed SerPl-m 21:15 Cnc Prot 07-17- 7.3 6.4-8.2 complet SerPl-m 013 gm/dL ed Cnc 21:15 Albumin 07-17- 3.3 3.4-5.0 complet 013 gm/dL ed SerPl-m 21:15 Cnc GLOBULI 4.0 1.3-3.2 complet N 013 gm/dL ed 21:15 ALB/SHALOM 0.8 UNK 1.1-1.8 complet B RATIO 013 ed 21:15 Bilirub 09-17-2 0.2 0.2-1.0 complet 013 mg/dL ed SerPl-m 21:15 Cnc AST 17-2 33 U/L 15-37 complet SerPl-c 013 ed Cnc 21:15 ALT -17-2 45 U/L 30-65 complet SerPl-c 013 ed Cnc 21:15 ALP -17-2 90 U/L 50-136 complet SerPl-c 013 ed Cnc 21:15 CBC with AUTO DIFF (07-17-2013 21:15) WBC # -17-2 23.9 4.8-10. complet Bld 013 K/MM3 8 ed Auto 21:15 RBC # 09-17-2 4.16 4.2-5.4 complet Bld 013 M/mm3 ed Auto 21:15 Hgb -17-2 13.2 12.2-16 complet Bld-mCn 013 g/dL .2 ed c 21:15 Hct Fr 17-2 41.1 % 37.0-47 complet Bld 013 .0 ed 21:15 MCV RBC -17-2 98.9 fl 82.2-97 complet 013 .8 ed 21:15 MCH RBC -17-2 31.7 pg 27-31.2 complet Qn 013 ed Auto 21:15 MEAN -17-2 32.0 31.8-35 complet CORPUSC 013 g/dl .4 ed ULAR 21:15 HGB CONC RDW RBC -17-2 14.0 % 11.5-17 complet Auto 013 .5 ed 21:15 Platele -17-2 514 142-424 complet t Bld 013 K/mm3 ed Ql 21:15 Manual MEAN -17-2 7.9 fl 7.4-10. complet PLATELE 013 4 ed T 21:15 VOLUME Granulo -17-2 89.0 % 37.0-80 complet cytes 013 .0 ed Fr Bld 21:15 Auto LYMPH % -17-2 6.2 % 10-50.0 complet 013 ed 21:15 Monocyt 09-17-2 4.3 % 1.7-9.3 complet es Fr 013 ed Bld 21:15 Auto Eosinop -17-2 0.3 % 0.1-12. complet hil Fr 013 0 ed Bld 21:15 Auto Basophi -17-2 0.1 % 0.1-2.0 complet ls Fr 013 ed Bld 21:15 Auto Granulo -17-2 21.3 1.8-7.8 complet cytes # 013 K/mm3 ed Bld 21:15 Auto Lymphoc -17-2 1.5 0.7-4.5 complet ytes Fr 013 K/mm3 ed Bld 21:15 Auto Monocyt -17-2 1.0 0.1-1.0 complet es # 013 K/mm3 ed Bld 21:15 Auto Eosinop -17-2 0.1 0.0-0.4 complet hil # 013 K/mm3 ed Bld 21:15 Auto Basophi -17-2 0.0 0-0.2 complet ls # 013 K/MM3 ed Bld 21:15 Auto ARTERIAL BLOOD GAS (07-17-2013 21:04) ARTERIA 07-17-2 7.27 7.35-7. complet L PH 013 MMOL/L 45 ed 21:04 ARTERIA 17-2 59.8 35.0-45 complet L PCO2 013 MMHG .0 ed 21:04 ARTERIA 17-2 53.9 80-100 complet L PO2 013 MMHG ed 21:04 ARTERIA 17-2 26.6 22.0-26 complet L HCO3 013 MMOL/L .0 ed 21:04 ARTERIA 17-2 28.4 23-27 complet L TCO2 013 MMOL/L ed 21:04 Base 07-17- -0.4 -2.4-+2 complet excess 013 MMOL/L .3 ed BldA-sC 21:04 nc ARTERIA 07-17- 83.1 % 90-100 Low complet L O2 013 alert ed SAT 21:04 OXYGEN 07-17- 32% VIA complet 013 n/c ed 21:04 Arteria 07-17-2 PATIENT complet l 013 UNABLE ed patency 21:04 Wrist a Tobramycin Ran SerPl-[facility] (07-17-2013 15:00) Tobramy 6.8 complet avery Ran 013 ug/mL ed 15:00 SerPl-[facility] COMPREHENSIVE METABOLIC PANEL (07-17-2013 05:10) Glucose 157 74-106 complet 013 mg/dL ed Bld-mCn 05:10 c BUN 8 mg/dL 7-18 complet Bld-mCn 013 ed c 05:10 Creat 0.9 0.6-1.0 complet SerPl-m 013 mg/dL ed Cnc 05:10 ESTIMAT 70 50-200 complet ED 013 ML/MIN ed CREATIN 05:10 INE CLEARAN CE GFR 66 59- complet (ESTIMA 013 ML/MIN ed PAUL) 05:10 Sodium 141 136-145 complet SerPl-s 013 mmoL/L ed Cnc 05:10 Potassi 3.6 3.5-5.1 complet um 013 mmoL/L ed SerPl-s 05:10 Cnc Chlorid 106 98-107 complet e 013 mmoL/L ed SerPl-s 05:10 Cnc CO2 26 21.0-32 complet SerPl-s 013 mmoL/L .0 ed Cnc 05:10 Calcium 6.2 8.5-10. complet 013 mg/dL 1 ed SerPl-m 05:10 Cnc Prot 6.2 6.4-8.2 complet SerPl-m 013 gm/dL ed Cnc 05:10 Albumin 2.6 3.4-5.0 complet 013 gm/dL ed SerPl-m 05:10 Cnc Globuli 3.6 1.3-3.2 complet n 013 gm/dL ed Ser-mCn 05:10 c Albumin 0.7 UNK 1.1-1.8 complet /Glob 013 ed SerPl-m 05:10 Rto Bilirub 0.2 0.2-1.0 complet 013 mg/dL ed SerPl-m 05:10 Cnc AST 20 U/L 15-37 complet SerPl-c 013 ed Cnc 05:10 ALT 33 U/L 30-65 complet SerPl-c 013 ed Cnc 05:10 ALP 78 U/L 50-136 complet SerPl-c 013 ed Cnc 05:10 Magnesium SerPl-mCnc (07-17-2013 05:10) Magnesi -17-2 1.9 1.4-2.2 complet um 013 mg/dL ed SerPl-m 05:10 Cnc CBC with AUTO DIFF (07-17-2013 05:10) WBC # 09-17-2 15.5 4.8-10. complet Bld 013 K/MM3 8 ed Auto 05:10 RBC # -17-2 3.72 4.2-5.4 complet Bld 013 M/mm3 ed Auto 05:10 Hgb -17-2 11.8 12.2-16 complet Bld-mCn 013 g/dL .2 ed c 05:10 Hct Fr -17-2 35.3 % 37.0-47 complet Bld 013 .0 ed 05:10 MCV RBC -17-2 94.7 fl 82.2-97 complet 013 .8 ed 05:10 MCH RBC -17-2 31.8 pg 27-31.2 complet Qn 013 ed Auto 05:10 MEAN -17-2 33.5 31.8-35 complet CORPUSC 013 g/dl .4 ed ULAR 05:10 HGB CONC RDW RBC -17-2 13.6 % 11.5-17 complet Auto 013 .5 ed 05:10 Platele -17-2 358 142-424 complet t Bld 013 K/mm3 ed Ql 05:10 Manual MEAN -17-2 7.8 fl 7.4-10. complet PLATELE 013 4 ed T 05:10 VOLUME Granulo -17-2 92.1 % 37.0-80 complet cytes 013 .0 ed Fr Bld 05:10 Auto LYMPH % -17-2 4.6 % 10-50.0 complet 013 ed 05:10 Monocyt -17-2 3.1 % 1.7-9.3 complet es Fr 013 ed Bld 05:10 Auto Eosinop -17-2 0.2 % 0.1-12. complet hil Fr 013 0 ed Bld 05:10 Auto Basophi -17-2 0.0 % 0.1-2.0 complet ls Fr 013 ed Bld 05:10 Auto Granulo -17-2 14.2 1.8-7.8 complet cytes # 013 K/mm3 ed Bld 05:10 Auto Lymphoc 09-17-2 0.7 0.7-4.5 complet ytes Fr 013 K/mm3 ed Bld 05:10 Auto Monocyt 07-17-2 0.5 0.1-1.0 complet es # 013 K/mm3 ed Bld 05:10 Auto Eosinop 07-17- 0.0 0.0-0.4 complet hil # 013 K/mm3 ed Bld 05:10 Auto Basophi 07-17- 0.0 0-0.2 complet ls # 013 K/MM3 ed Bld 05:10 Auto BASIC METABOLIC PANEL (07-16-2013 05:05) Glucose 144 74-106 complet 013 mg/dL ed Bld-mCn 05:05 c BUN 11 7-18 complet Bld-mCn 013 mg/dL ed c 05:05 Creat 1.0 0.6-1.0 complet SerPl-m 013 mg/dL ed Cnc 05:05 ESTIMAT 61 50-200 complet ED 013 ML/MIN ed CREATIN 05:05 INE CLEARAN CE GFR 59 59- complet (ESTIMA 013 ML/MIN ed PAUL) 05:05 Sodium 139 136-145 complet SerPl-s 013 mmoL/L ed Cnc 05:05 Potassi 3.3 3.5-5.1 complet um 013 mmoL/L ed SerPl-s 05:05 Cnc Chlorid 103 98-107 complet e 013 mmoL/L ed SerPl-s 05:05 Cnc CO2 23 21.0-32 complet SerPl-s 013 mmoL/L .0 ed Cnc 05:05 Calcium 6.0 8.5-10. complet 013 mg/dL 1 ed SerPl-m 05:05 Cnc Magnesium SerPl-mCnc (07-16-2013 05:05) Magnesi 1.3 1.4-2.2 complet um 013 mg/dL ed SerPl-m 05:05 Cnc BNP Bld-mCnc (07-16-2013 05:05) BNP 1030 0-100 complet Bld-mCn 013 pg/mL ed c 05:05 CBC with AUTO DIFF (07-16-2013 05:05) WBC # 09-16-2 15.6 4.8-10. complet Bld 013 K/MM3 8 ed Auto 05:05 RBC # 09-16-2 3.90 4.2-5.4 complet Bld 013 M/mm3 ed Auto 05:05 Hgb 09-16-2 12.0 12.2-16 complet Bld-mCn 013 g/dL .2 ed c 05:05 Hct Fr -16-2 36.8 % 37.0-47 complet Bld 013 .0 ed 05:05 MCV RBC -16-2 94.4 fl 82.2-97 complet 013 .8 ed 05:05 MCH RBC -16-2 30.9 pg 27-31.2 complet Qn 013 ed Auto 05:05 MEAN -16-2 32.7 31.8-35 complet CORPUSC 013 g/dl .4 ed ULAR 05:05 HGB CONC RDW RBC -16-2 13.4 % 11.5-17 complet Auto 013 .5 ed 05:05 Platele -16-2 297 142-424 complet t Bld 013 K/mm3 ed Ql 05:05 Manual MEAN -16-2 7.8 fl 7.4-10. complet PLATELE 013 4 ed T 05:05 VOLUME Granulo -16-2 91.8 % 37.0-80 complet cytes 013 .0 ed Fr Bld 05:05 Auto LYMPH % 09-16-2 5.3 % 10-50.0 complet 013 ed 05:05 Monocyt 09-16-2 2.3 % 1.7-9.3 complet es Fr 013 ed Bld 05:05 Auto Eosinop 09-16-2 0.6 % 0.1-12. complet hil Fr 013 0 ed Bld 05:05 Auto Basophi 09-16-2 0.0 % 0.1-2.0 complet ls Fr 013 ed Bld 05:05 Auto Granulo 09-16-2 14.3 1.8-7.8 complet cytes # 013 K/mm3 ed Bld 05:05 Auto Lymphoc 09-16-2 0.8 0.7-4.5 complet ytes Fr 013 K/mm3 ed Bld 05:05 Auto Monocyt 09-16-2 0.4 0.1-1.0 complet es # 013 K/mm3 ed Bld 05:05 Auto Eosinop 0.1 0.0-0.4 complet hil # 013 K/mm3 ed Bld 05:05 Auto Basophi 0.0 0-0.2 complet ls # 013 K/MM3 ed Bld 05:05 Auto LIPID PROFILE (07-16-2013 05:00) Cholest 144 Less complet 013 mg/dL than ed SerPl-m 05:00 200 Cnc HDLc 49.0 40-60 complet SerPl-m 013 MG/DL ed Cnc 05:00 LDLc 78.4 0-130 complet SerPl 013 mg/dL ed Calc-mC 05:00 nc VLDL 16.6 0-40 complet CHOLEST 013 UNK ed CHAYO 05:00 Trigl 83 30-200 complet SerPl-m 013 mg/dL ed Cnc 05:00 DRUG-TRIAGE,URINE (07-15-2013 13:10) ARTERIA 7.37 7.35-7. complet L PH 013 MMOL/L 45 ed 13:10 ARTERIA 40.8 35.0-45 complet L PCO2 013 MMHG .0 ed 13:10 ARTERIA 179.4 80-100 complet L PO2 013 MMHG ed 13:10 ARTERIA 23.1 22.0-26 complet L HCO3 013 MMOL/L .0 ed 13:10 ARTERIA 24.3 23-27 complet L TCO2 013 MMOL/L ed 13:10 Base -2.2 -2.4-+2 complet excess 013 MMOL/L .3 ed BldA-sC 13:10 nc ARTERIA 99.3 % 90-100 complet L O2 013 ed SAT 13:10 TIDAL 500 UNK complet VOLUME 013 ed 13:10 OXYGEN 50 UNK complet 013 ed 13:10 VENT 4 UNK complet RATE 013 ed 13:10 PEEP 07-15- 5 UNK complet 013 ed 13:10 PRESSUR 10 UNK complet E 013 ed SUPPORT 13:10 Arteria ACCEPTA complet l 013 BLE ed patency 13:10 Wrist a SOURCE RIGHT complet 013 BRACHIA ed 13:10 L DRUG-TRIAGE,URINE (07-15-2013 04:58) ARTERIA 7.19 7.35-7. Low complet L PH 013 MMOL/L 45 alert ed 04:58 ARTERIA 67.1 35.0-45 complet L PCO2 013 MMHG .0 ed 04:58 ARTERIA 187.9 80-100 complet L PO2 013 MMHG ed 04:58 ARTERIA 24.9 22.0-26 complet L HCO3 013 MMOL/L .0 ed 04:58 ARTERIA 26.9 23-27 complet L TCO2 013 MMOL/L ed 04:58 Base -3.4 -2.4-+2 complet excess 013 MMOL/L .3 ed BldA-sC 04:58 nc ARTERIA 99.1 % 90-100 complet L O2 013 ed SAT 04:58 TIDAL 07-15-2 500 UNK complet VOLUME 013 ed 04:58 OXYGEN --2 60 UNK complet 013 ed 04:58 VENT 07-15-2 16 UNK complet RATE 013 ed 04:58 PEEP --2 5 UNK complet 013 ed 04:58 PRESSUR 07-15-2 10 UNK complet E 013 ed SUPPORT 04:58 Arteria PATIENT complet l 013 UNABLE ed patency 04:58 Wrist a SOURCE LEFT complet 013 RADIAL ed 04:58 ARTERIAL BLOOD GAS (07-15-2013 04:10) ARTERIA 6.97 7.35-7. Low complet L PH 013 MMOL/L 45 alert ed 04:10 ARTERIA 98.1 35.0-45 complet L PCO2 013 MMHG .0 ed 04:10 ARTERIA 155.7 80-100 complet L PO2 013 MMHG ed 04:10 ARTERIA 22.1 22.0-26 complet L HCO3 013 MMOL/L .0 ed 04:10 ARTERIA -9.6 23-27 complet L TCO2 013 MMOL/L ed 04:10 Base 25.1 -2.4-+2 complet excess 013 MMOL/L .3 ed BldA-sC 04:10 nc ARTERIA 98.1 % 90-100 complet L O2 013 ed SAT 04:10 OXYGEN 100% complet 013 AMBU ed 04:10 Arteria PATIENT complet l 013 UNABLE ed patency 04:10 Wrist a COMPREHENSIVE METABOLIC PANEL (07-15-2013 04:00) Glucose 289 74-106 complet 013 mg/dL ed Bld-mCn 04:00 c BUN 8 mg/dL 7-18 complet Bld-mCn 013 ed c 04:00 Creat 1.3 0.6-1.0 complet SerPl-m 013 mg/dL ed Cnc 04:00 GFR 43 59- complet (ESTIMA 013 ML/MIN ed PAUL) 04:00 Sodium 140 136-145 complet SerPl-s 013 mmoL/L ed Cnc 04:00 Potassi 4.4 3.5-5.1 complet um 013 mmoL/L ed SerPl-s 04:00 Cnc Chlorid 101 98-107 complet e 013 mmoL/L ed SerPl-s 04:00 Cnc CO2 30 21.0-32 complet SerPl-s 013 mmoL/L .0 ed Cnc 04:00 Calcium 7.5 8.5-10. complet 013 mg/dL 1 ed SerPl-m 04:00 Cnc Prot 7.9 6.4-8.2 complet SerPl-m 013 gm/dL ed Cnc 04:00 Albumin 3.5 3.4-5.0 complet 013 gm/dL ed SerPl-m 04:00 Cnc Globuli 4.4 1.3-3.2 complet n 013 gm/dL ed Ser-mCn 04:00 c Albumin 0.8 UNK 1.1-1.8 complet /Glob 013 ed SerPl-m 04:00 Rto Bilirub 0.3 0.2-1.0 complet 013 mg/dL ed SerPl-m 04:00 Cnc AST 21 U/L 15-37 complet SerPl-c 013 ed Cnc 04:00 ALT 07-15- 32 U/L 30-65 complet SerPl-c 013 ed Cnc 04:00 ALP 109 U/L 50-136 complet SerPl-c 013 ed Cnc 04:00 PROTIME/INR (07-15-2013 04:00) PROTHRO 07-15-2 10.0 9.9-11. complet MBIN 013 SECONDS 6 ed TIME 04:00 INR Bld 07-15-2 0.93 0.9-1.1 complet 013 UNK ed 04:00 CBC with AUTO DIFF (07-15-2013 04:00) WBC # -15-2 18.6 9.0-30. complet Bld 013 K/MM3 0 ed Auto 04:00 RBC # 07-15-2 4.71 4.04-5. complet Bld 013 M/mm3 48 ed Auto 04:00 Hgb 14.8 17.0-24 complet Bld-mCn 013 g/dL .0 ed c 04:00 Hct Fr 46.6 % 53.0-70 complet Bld 013 .0 ed 04:00 MCV RBC 07-15- 98.9 fl 81-99 complet 013 ed 04:00 MCH RBC 07-15- 31.4 pg 27-31.2 complet Qn 013 ed Auto 04:00 MEAN 31.7 31.8-35 complet CORPUSC 013 g/dl .4 ed ULAR 04:00 HGB CONC RDW RBC 07-15-2 13.7 % 11.5-17 complet Auto 013 .5 ed 04:00 Platele 07-15- 501 142-424 complet t Bld 013 K/mm3 ed Ql 04:00 Manual MEAN 8.0 fl 7.4-10. complet PLATELE 013 4 ed T 04:00 VOLUME Granulo 69.5 % 37.0-80 complet cytes 013 .0 ed Fr Bld 04:00 Auto LYMPH % 23.7 % 10-50 complet 013 ed 04:00 Monocyt 07-15-2 4.2 % complet es Fr 013 ed Bld 04:00 Auto Eosinop 2.0 % 0.1-12. complet hil Fr 013 0 ed Bld 04:00 Auto Basophi 07-15-2 0.5 % 0.1-2.0 complet ls Fr 013 ed Bld 04:00 Auto Granulo 07-15-2 12.9 1.8-7.8 complet cytes # 013 K/mm3 ed Bld 04:00 Auto Lymphoc 07-15-2 4.4 0.7-4.5 complet ytes Fr 013 K/mm3 ed Bld 04:00 Auto Monocyt 07-15-2 0.8 0.1-1.0 complet es # 013 K/mm3 ed Bld 04:00 Auto Eosinop 07-15-2 0.4 0.0-0.4 complet hil # 013 K/mm3 ed Bld 04:00 Auto Basophi 07-15-2 0.1 0-0.2 complet ls # 013 K/MM3 ed Bld 04:00 Auto GLYCOHEMOGLOBIN (A1c) (07-15-2013 04:00) HEMOGLO 07-15-2 5.1 % 0.0-7.0 complet BIN A1C 013 ed 04:00 Procedures Procedure DOS Code Location Performer Comment CT THORAX 27452 EREN CLEO W/O 7 MEDICAL CONTRAST IMAGING MATERIAL ASS O2 CONC 1 E1390 DAREK RAMIREZRELL DEL PORT 7 HOME HOME 85%/>02 MEDICAL [facility] FL[facility] PRTBLE E0431 DAREK OSWALD GASEOUS 7 HOME HOME O2 SYS MEDICAL MEDICAL RENT; EQUIPME EQUIPME FLWMTR HUMIDFR&M ASK LALA 77306 ROSS GILES POST-VOID 7 [facility] RESIDUAL P URINE&/BL ADDER CAP PRTBLE E0431 DAREK RAMIREZRELL GASEOUS 7 HOME HOME O2 SYS MEDICAL MEDICAL RENT; EQUIPME EQUIPME FLWMTR HUMIDFR&M ASK O2 CONC 1 E1390 DAREK RAMIREZRELL DEL PORT 7 HOME HOME 85%/>02 MEDICAL MEDICAL CONC AT EQUIPME EQUIPME [facility] FLW RATE ECHO 38978 ROSS HAWKINS TTHRC R-T 7 [facility] INC INC W/WOM-MOD E COMPL SPEC&COLR D ECG 22007 [facility] ROUTINE 7 [facility] ECG MEDICAL W/LEAST G 12 LDS W/I&R O2 CONC 1 E1390 DAREK BELTRAN PORT 7 HOME HOME 85%/>02 MEDICAL MEDICAL CONC AT EQUIPME EQUIPME PRSC FLW RATE PRTBLE E0431 DAREK OSWALD GASEOUS 7 HOME HOME O2 SYS MEDICAL MEDICAL RENT; EQUIPME EQUIPME FLWMTR HUMIDFR&M ASK PRTBLE E0431 DAREK OSWALD GASEOUS 7 HOME HOME O2 SYS MEDICAL MEDICAL RENT; EQUIPME EQUIPME FLWMTR HUMIDFR&M ASK O2 CONC 1 E1390 DAREK OSWALD DEL PORT 7 HOME HOME 85%/>02 MEDICAL MEDICAL CONC AT EQUIPME EQUIPME PRSC FLW RATE O2 CONC 1 E1390 DAREK OSWALD DEL PORT 6 HOME HOME 85%/>02 MEDICAL MEDICAL CONC AT EQUIPME EQUIPME PRSC FLW RATE PRTBLE E0431 DAREK OSWALD GASEOUS 6 HOME HOME O2 SYS MEDICAL MEDICAL RENT; EQUIPME EQUIPME FLWMTR [place]FR&[place] [address] ROSS HAWKINS RETROPERI 6 [facility] TONEAL [place] [address] [place] RETROPERI 6 MEDICAL TONEAL IMAGING REAL TIME ASS W/IMAGE LIMITED COLLECTIO 17577 ROSS HAWKINS N VENOUS 6 [facility] BLOOD INC INC VENIPUNCT URE RENAL 02224 ROSS HAWKINS FUNCTION 6 [facility] PANEL INC INC URNLS DIP 44278 ROSS HAWKINS 6 [facility] STICK/TAB INC INC [place] [address] ROSS HAWKINS ERYTHROPO 6 [facility] IETIN INC INC IRON 60727 ROSS HAWKINS BINDING 6 [facility] CAPACITY INC INC CULTURE 12942 ROSS HAWKINS BACTERIAL 6 [facility] INC INC QUANTTATI VE COLONY COUNT URINE BLOOD 71552 ROSS HAWKINS COUNT 6 [facility] [place] [address] ROSS HAWKINS IRON 6 [place] [address] ROSS HAWKINS FERRITIN 6 [facility] INC INC RADEX 65392 ROSS HAWKINS RIBS UNI 6 [facility] W/POSTERO INC INC ANT CH MINIMUM 3 VIEWS RADEX 71414 [facility] RIBS 6 MEDICAL [place] IMAGING L 2 VIEWS ASS RADEX 90141 ROSS HAWKINS RIBS UNI 6 [facility] W/POSTERO INC INC ANT CH MINIMUM 3 VIEWS O2 CONC 1 E1390 DAREKDONNA RAMIREZRELL DEL PORT 6 HOME HOME 85%/>02 MEDICAL MEDICAL CONC AT EQUIPME EQUIPME PRSC FLW RATE PRTBLE E0431 DAREK DAREK GASEOUS 6 HOME HOME O2 SYS MEDICAL MEDICAL RENT; EQUIPME EQUIPME FLWMTR HUMIDFR&M ASK RADIOLOGI 16575 [place] ALL C EXAM 6 MEDICAL CHEST 2 IMAGING VIEWS ASS FRONTAL&L ATERAL ECG 46288 ROSS ELDER ROUTINE [address] [facility] W/LEAST P 12 LDS I&R ONLY RADIOLOGI 82371 ROSS ROSS C EXAM 6 [facility] CHEST 2 INC INC VIEWS FRONTAL&L ATERAL PRESSURIZ 28123 ROSS ROSS ED/NONPRE 6 [facility] SSURIZED INC INC INHALATIO N TREATMENT O2 CONC 1 E1390 DAREK RAMIREZRELL DEL PORT 6 HOME HOME 85%/>02 MEDICAL MEDICAL CONC AT EQUIPME EQUIPME PRSC FLW RATE PRTBLE E0431 DAREK DAREK GASEOUS 6 HOME HOME O2 SYS MEDICAL MEDICAL RENT; EQUIPME EQUIPME FLWMTR HUMIDFR&M ASK THERAPEUT 30648 ROSS HAWKINS IC 6 [facility] PROPHYLAC INC INC TIC/DX INJECTION SUBQ/IM THERAPEUT 37940 ROSS HAWKINS IC 6 [facility] PROPHYLAC INC INC TIC/DX INJECTION SUBQ/IM THERAPEUT 48910 ROSS HAWKINS IC 6 [facility] PROPHYLAC INC INC TIC/DX INJECTION SUBQ/IM PHRM Q0513 YOUR YOUR DISPENSIN 6 PHARMACY PHARMACY G [employer] INHALATIO N RX; PER 30 DAYS ADMN SET A7003 YOUR YOUR SM VOL 6 PHARMACY PHARMACY NONFILTR [facility] PNEUMAT NEBULIZR DISPBL ALBUTEROL J7620 YOUR YOUR TO 2.5 6 PHARMACY PHARMACY [employer] IPRATROPI UM BROM TO 0.5 MG THERAPEUT 66576 ROSS HAWKINS IC 6 [facility] PROPHYLAC INC INC TIC/DX INJECTION SUBQ/IM THERAPEUT 92250 ROSS HAWKINS IC 6 [facility] PROPHYLAC INC INC TIC/DX INJECTION SUBQ/IM THERAPEUT 90150 ROSS HAWKINS IC 6 [facility] PROPHYLAC INC INC TIC/DX INJECTION SUBQ/IM THERAPEUT 78328 ROSS HAWKINS IC 6 [facility] PROPHYLAC INC INC TIC/DX INJECTION SUBQ/IM THERAPEUT 94760 ROSS HAKWINS IC 6 [facility] PROPHYLAC INC INC TIC/DX INJECTION SUBQ/IM THERAPEUT 27872 ROSS HAWKINS IC 6 [facility] PROPHYLAC INC INC TIC/DX INJECTION SUBQ/IM THERAPEUT 53912 ROSS HAWKINS IC 6 [facility] PROPHYLAC INC INC TIC/[place]JECTION SUBQ/[place] [address] ROSS HAWKINS ABDOMINAL 6 [facility] REAL INC [place] [address] [place] ABDOMINAL 6 MEDICAL REAL IMAGING TIME ASS W/IMAGE LIMITED COLLECTIO 01019 ROSS HAWKINS N VENOUS 6 [facility] BLOOD INC INC VENIPUNCT URE PRTBLE E0431 DAREK MCGOWAN GASEOUS 6 HOME MAR O2 SYS MEDICAL RENT; [facility] HUMIDFR&M ASK O2 CONC 1 E1390 DAREK MCGOWAN DEL PORT 6 HOME MAR 85%/>02 MEDICAL CONC AT [facility] FLW RATE CALCIUM 21514 ROSS ROSS IONIZED 6 [facility] HOS[facility] INC INC NERVE 74574 ROSS HAWKINS CONDUCTIO 6 [facility] N STUDIES INC INC 5-6 STUDIES RENAL 55831 ROSS HAWKINS FUNCTION 6 [facility] PANEL INC INC URNLS DIP 08194 ROSS HAWKINS 6 [facility] STICK/TAB INC INC LET REAGENT AUTO MICROSCOP Y AREO MASK A7015 YOUR YOUR USED W/ 6 PHARMACY PHARMACY [facility] ADMN SET A7003 YOUR YOUR SM VOL 6 PHARMACY PHARMACY [facility] PNEUMAT NEBULIZR DISPBL ALBUTEROL J7620 YOUR YOUR TO 2.5 6 PHARMACY PHARMACY [facility] IPRATROPI UM BROM TO 0.5 MG PHRM Q0513 YOUR YOUR DISPENSIN 6 PHARMACY PHARMACY [facility] INHALATIO N RX; PER 30 DAYS COLONOSCO 43892 ROSS ROSS PY 6 [facility] W/BIOPSY INC INC SINGLE/MU LTIPLE ANES 31902 [facility] FEEBACK LOWER 6 ANESTH REE INTESTINE OF THE [place] [address] ROSS ROSS SURG 6 [facility] PATHOLOGY INC INC GROSS&MATY ROSCOPIC EXAM PRTBLE E0431 DAREK JAZMIN GASEOUS 6 HOME [place] O2 SYS MEDICAL RENT; EQUIPME FLWMTR HUMIDFR&M ASK O2 CONC 1 E1390 DAREK WU DEL PORT 6 HOME [place] 85%/>02 MEDICAL CONC AT EQUIPME PRS FLW RATE AREO MASK A7015 YOUR YOUR USED W/ 6 PHARMACY PHARMACY [facility] ADMN SET A7003 YOUR YOUR SM VOL 6 PHARMACY PHARMACY [facility] PNEUMAT NEBULIZR DISPBL ALBUTEROL J7620 YOUR YOUR TO 2.5 6 PHARMACY PHARMACY [facility] IPRATROPI UM BROM TO 0.5 MG PHRM Q0513 YOUR YOUR DISPENSIN 6 PHARMACY PHARMACY [facility] INHALATIO N RX; PER 30 DAYS EXTERNAL 56758 ROSS HAWKINS ECG 6 [facility] SCANNING [place] [address] ROSS HAWKINS PARATHORM 6 [facility] ONE INC INC 25 17802 ROSS HAWKINS HYDROXY 6 [facility] INCLUDES INC INC FRACTIONS IF PERFORMED COMPREHEN 29531 ROSS ROSS SIVE 6 [facility] METABOLIC INC INC PANEL XTRNL ECG 49614 ROSS HAWKINS & 48 HR 6 [facility] RECORDING INC INC COLLECTIO 14797 ROSS HAWKINS N VENOUS 6 [facility] BLOOD INC INC VENIPUNCT URE ECG 65143 ROSS HAWKINS ROUTINE 6 [facility] ECG INC INC W/LEAST 12 LDS TRCG ONLY W/O I&R COMPREHEN 87518 ROSS HAWKINS SIVE 6 [facility] [address] ROSS HAWKINS INFUSION 6 [facility] THERAPY/P INC INC ROPHYLAXI S /DX 1ST TO 1 HR ECG 71448 ROSS HAWKINS ROUTINE 6 [facility] ECG INC INC W/LEAST 12 LDS TRCG ONLY W/O I&[place] [address] ROSS HAWKINS TROPONIN 6 [facility] QUANTITAT INC INC CLAUDE ECG 79002 ROSS ELDER ROUTINE 6 [facility] W/LEAST P 12 LDS I&R ONLY RADIOLOGI 77477 ROSS HAWKINS C EXAM 6 [facility] CHEST 2 INC INC VIEWS FRONTAL&L ATERAL URNLS DIP 13010 ROSS HAWKINS 6 [facility] STICK/TAB INC INC LET REAGENT AUTO MICROSCOP Y O2 CONC 1 E1390 DAREK BELTRAN PORT 6 HOME MAR 85%/>02 MEDICAL CONC AT [facility] FLW RATE PRTBLE E0431 DAREK MCGOWAN GASEOUS 6 HOME MAR O2 SYS MEDICAL RENT; EQUIPME FLWMTR HUMIDFR&M ASK BLOOD 36683 ROSS HAWKINS COUNT 6 [facility] COMPLETE INC INC AUTO&AUTO DIFRNTL WBC COLLECTIO 96021 ROSS HAWKINS N VENOUS 6 [facility] BLOOD INC INC VENIPUNCT URE ECG 11679 ROSS SPARROWSON ROUTINE 6 [facility] W/LEAST P 12 LDS I&R ONLY ECG 13553 ROSS HAWKINS ROUTINE 6 [facility] ECG INC INC W/LEAST 12 LDS TRCG ONLY W/O I&R BASIC 02398 ROSS HAWKINS METABOLIC 6 [facility] PANEL INC INC CALCIUM TOTAL ADMN SET A7003 YOUR YOUR SM VOL 6 PHARMACY PHARMACY NONFILTR [employer] [facility] PNEUMAT NEBULIZR DISPBL ALBUTEROL J7620 YOUR YOUR TO 2.5 6 PHARMACY PHARMACY [employer] [facility] IPRATROPI UM BROM TO 0.5 MG PHRM Q0513 YOUR YOUR DISPENSIN 6 PHARMACY PHARMACY [employer] [facility] INHALATIO N RX; PER 30 DAYS PRESSURIZ 18698 ROSS HAWKINS ED/NONPRE 6 [facility] SSURIZED INC INC INHALATIO N TREATMENT NONINVASI 61423 ROSS HAWKINS VE 6 [facility] EAR/PULSE INC INC OXIMETRY SINGLE DETER RADIOLOGI 00943 ROSS HAWKINS C EXAM 6 [facility] HOSP CHEST 2 INC INC VIEWS FRONTAL&L ATERAL O2 CONC 1 E1390 DAREK HEDRICK DEL PORT 6 HOME LISA 85%/>02 MEDICAL CONC AT EQUIPME PRSC FLW RATE URETHROCY 31351 [place] STOGRAPHY 6 MEDICAL VOIDING IMAGING RS&I ASS PRTBLE E0431 DAREK HEDRICK GASEOUS 6 HOME LISA O2 SYS MEDICAL RENT; EQUIPME FLWMTR HUMIDFR&M ASK LOCM Q9965 ROSS ROSS 100-199 6 [facility] MG/ML INC INC IODINE CONCENTRA TION PER ML PHRM Q0513 YOUR YOUR DISPENSIN 6 PHARMACY PHARMACY [employer] [facility] INHALATIO N RX; PER 30 DAYS AREO MASK A7015 YOUR YOUR USED W/ 6 PHARMACY PHARMACY [facility] [employer] ALBUTEROL J7620 YOUR YOUR TO 2.5 6 PHARMACY PHARMACY [employer] [facility] IPRATROPI UM BROM TO 0.5 MG ADMN SET A7003 YOUR YOUR SM VOL 6 PHARMACY PHARMACY [facility] PNEUMAT NEBULIZR DISPBL O2 CONC 1 E1390 DAREK Ortiz'IRA DEL PORT 6 HOME MOL 85%/>02 MEDICAL CONC AT [facility] FLW RATE PRTBLE E0431 DAREK Alcantar'IRA GASEOUS 6 HOME MOL O2 SYS MEDICAL RENT; [facility] FLWMTR HUMIDFR&M ASK MRI 36747 [facility] SPINAL 6 [facility] THORACIC W/O CONTRAST MATRL MRI 28177 [facility] SPINAL 6 [facility] H[facility]P LUMBAR W/O CONTRAST MATERIAL NON-INVAS [address] PHYSIOLOG MEDICAL IC STD G EXTREMITY ART 2 LEVEL DUP-SCAN [address] ART/ARTL MEDICAL BPGS G COMPL BI STUDY DUP-SCAN [address] ART/ARTL BPGS COMPL BI STUDY NON-INVAS [address] PHYSIOLOG IC STD EXTREMITY ART 2 LEVEL DUP-SCAN 01811 NEPHROLOG NEEL PIMENTEL JG 6 Y THO ABDL/PEL/ ASSOCIATE SCROT&/RP S OF BERRY R ORGN COM O2 CONC 1 E1390 DAREK KERN DEL PORT 6 HOME SHANNA 85%/>02 MEDICAL CONC AT [facility] FLW RATE PRTBLE E0431 DAREK KERN GASEOUS 6 HOME SHANNA O2 SYS MEDICAL RENT; [facility] FLWMTR HUMIDFR&M ASK LALA 66792 ROSS GILES POST-VOID 6 [facility] RESIDUAL P URINE&/[place] [address] ROSS HAWKINS ABDOMEN & 6 [facility] PELVIS INC INC W/O CONTRAST MATERIAL CULTURE 08225 [facility] BACTERIAL 6 [facility] BLOOD INC INC AEROBIC W/ID ISOLATES BLOOD 44781 [facility] COUNT 6 [facility] COMPLETE INC INC AUTO&AUTO DIFRNTL WBC URNLS DIP 55408 ROSS DE SOUZA 6 [facility] LISY STICK/TAB INC LET REAGENT AUTO MICROSCOP Y CULTURE 10784 [facility] BACTERIAL 6 [facility] INC INC QUANTTATI VE COLONY COUNT URINE INJECTION J2405 ROSS VALLE 6 [facility] ESOTERIC ONDANSETR INC LABORATOR ON HCL I PER [address] [place] [address] ROSS HAWKINS LACTATE 6 [facility] [place] [address] ROSS HAWKINS INFUSION 6 [facility] THERAPY/P INC INC ROPHYLAXI S /DX 1ST TO 1 HR THERAPEUT 68494 [facility]WK[facility] IC 6 [facility] INJECTION INC INC IV PUSH EACH NEW DRUG SLCTV 37757 [facility] CATH 6 [facility] CAROTID/I MEDICAL NNOM ART G ANGIO XTRCRANL ART PRTBLE E0431 [facility] GASEOUS 6 HOME IZA O2 SYS MEDICAL RENT; [facility] H[facility]&M ASK O2 CONC 1 E1390 [facility] DEL PORT 6 HOME IZA 85%/>02 MEDICAL CONC AT EQUIPME PRS FLW RATE KIDNEY [address] [place] ALL IMG 6 MEDICAL MORPHOLOG IMAGING Y ASS VASCULAR FLOW 1 W/RX URNLS DIP 18649 ROSS CHAN 6 [facility] LET RGNT P NON-AUTO W/O MICRSCP CALCIUM 61182 ROS[facility] HAWKINS TOTAL 6 [facility] [place] [address] [facility] HAWK[facility] THYROID 6 [facility] STIMULATI [place] [address] ROSS HAWKINS FREE 6 [facility] THYROXINE INC INC COLLECTIO 99485 ROSS HAWKINS N VENOUS 6 [facility]OS[facility] BLOOD INC INC VENIPUNCT URE O2 CONC 1 E1390 [facility] DEL PORT 6 HOME HOME 85%/>02 MEDICAL MEDICAL CONC AT EQUIPME EQUIPAZ PRS FLW RATE PRTBLE E0431 DAREK OSWALD GASEOUS 6 HOME HOME O2 SYS MEDICAL MEDICAL RENT; EQUIPME EQUIPME FLWMTR HUMIDFR&M ASK CTA ABDL 30234 [place] CLE[place] AORTA&BI 6 MEDICAL [place] ILIOFEM IMAGING W/CONTRAS ASS T&POSTP CT THORAX 29751 ROSS HAWKINS W/O 6 [facility] CONTRAST INC INC MATERIAL DUPLEX 46936 [place] CLE[place] SCAN 6 MEDICAL [place] EXTRACRAN IMAGING [place] [address] [facility]WKINS INFUSION 6 [facility] THERAPY INC INC PROPHYLAX IS/[place] [address] [facility]S HAWKINS INFUSION 6 [facility] THERAPY/P INC INC ROPHYLAXI S /DX 1ST TO 1 HR O2 CONC 1 E1390 D[facility] KERN DEL PORT 6 HOME SHANNA 85%/>02 MEDICAL CONC AT [facility] FLW RATE PRTBLE E0431 DAREK ERLIN GASEOUS 6 HOME SHANNA O2 SYS MEDICAL RENT; [facility] FLWMTR HUMIDFR&M ASK BLOOD 39135 ROSSNIHARIKA HAWKINS COUNT 5 [facility] COMPLETE INC INC AUTO&AUTO DIFRNTL WBC COMPREHEN 96729 ORSS HAWKINS SIVE 5 [facility] METABOLIC INC INC PANEL RADIOLOGI 86913 [place] ALL C EXAM 5 MEDICAL CHEST 2 IMAGING VIEWS ASS FRONTAL&L ATERAL ALBUTEROL J7620 YOUR YOUR TO 2.5 5 PHARMACY PHARMACY [facility] IPRATROPI UM BROM TO 0.5 MG PHRM Q0513 YOUR YOUR DISPENSIN 5 PHARMACY [facility]ARMACY [facility] INHALATIO N RX; PER 30 DAYS PRTBLE E0431 DAREKDONNA SEWELLK BRA GASEOUS 5 HOME O2 SYS MEDICAL RENT; EQUIPAZ FLWMTR HUMIDFR&M ASK O2 CONC 1 E1390 DAREK SPRAGUE BRA DEL PORT 5 HOME 85%/>02 MEDICAL CONC AT [facility] FLW RATE RADIOLOGI 36237 ROSS HAWKINS C EXAM 5 [facility] CHEST 2 INC INC VIEWS FRONTAL&L ATERAL ECG 79715 [facility] ROUTINE 5 [facility] ECG MEDICAL MEDICAL W/LEAST G G 12 LDS W/I&R ALBUTEROL J7620 YOUR YOUR TO 2.5 5 PHARMACY PHARMACY [facility] IPRATROPI UM BROM TO 0.5 MG PHRM Q0513 YOUR YOUR DISPENSIN 5 PHARMACY PHARMACY [facility] INHALATIO N RX; PER 30 DAYS O2 CONC 1 E1390 DAREK RAMIREZRELL DEL PORT 5 HOME HOME 85%/>02 MEDICAL MEDICAL CONC AT EQUIPME EQUIPAZ PRSC FLW RATE PRTBLE E0431 DAREK DAREK GASEOUS 5 HOME HOME O2 SYS MEDICAL MEDICAL RENT; EQUIPAZ EQUIPAZ FLWMTR HUMIDFR&M ASK NONCOVERE A9270 [facility] ITEM OR [address] [place] [address] HOSPITAL SERVICE NONCOVERE A9270 [facility] ITEM OR [address] [place] [address] HOSPITAL SERVICE EPHYS 140[address] [facility] LAMMARIA L [place]AY[place] EVAL 5 [place] [facility] W/ABLATIO MEDICAL N G SUPRAVENT ARRHYTHMI A RADEX 36258 [place] BEINE ESOPHAGUS 5 MEDICAL ELISSA IMAGING ASS HEPATOBIL 83989 [place] CELO IARY SYST 5 MEDICAL NOHEMI IMAGING IMAGING INCLUDING ASS GALLBLADD ER PRTBLE E0431 DAREK O'IRA GASEOUS 5 HOME MOL O2 SYS MEDICAL RENT; EQUIPME FLWMTR HUMIDFR&M ASK O2 CONC 1 E1390 DAREK BenitesIRA DEL PORT 5 HOME MOL 85%/>02 MEDICAL CONC AT EQUIPAZ PRSC FLW RATE XTRNL ECG 85079 [facility]S [facility] S RHYTHM P W/I&R UP TO 48 HRS XTRNL ECG 29601 ROSS HAWKINS & 48 HR 5 [facility] RECORDING INC INC ECG 35021 ROSS ELDER ROUTINE [address] [facility] W/LEAST P 12 LDS I&R ONLY ECHO 34241 ROSS HAWKINS TTHRC R-T 5 [facility] 2D INC INC W/WOM-MOD E COMPL SPEC&COLR D INSJ 98259 ROSS GILES NON-NDWEL 5 [facility] BLADDER P CATHETER RADIOLOGI 37644 [place] BIRD ALL C EXAM 5 MEDICAL CHEST 2 IMAGING VIEWS ASS FRONTAL&[place] [address] ROSS HAWKINS TRACT UPR 5 [facility] W/SM INT INC INC W/MULT SERIAL IMAGES THERAPEUT 28049 ROSS HAWKINS IC 5 [facility] INJECTION INC INC IV PUSH EACH NEW DRUG RADIOLOGI [address] [facility] C 5 MEDICAL EXAMINATI IMAGING ON CHEST ASS SINGLE VIEW FRONTAL ALBUTEROL J7620 YOUR YOUR TO 2.5 5 PHARMACY PHARMACY [employer] IPRATROPI UM BROM TO 0.5 MG PHRM Q0513 YOUR YOUR DISPENSIN 5 PHARMACY PHARMACY G F[facility] [employer] INHALATIO N RX; PER 30 DAYS O2 CONC 1 E1390 DAREK OSWALD DEL PORT 5 HOME HOME 85%/>02 MEDICAL MEDICAL CONC AT EQUIPME EQUIPME PRSC FLW RATE PRTBLE E0431 DAREK DAREK GASEOUS 5 HOME HOME O2 SYS MEDICAL MEDICAL RENT; EQUIPME EQUIPME FLWMTR HUMIDFR&M ASK US BREAST 66163 ROSS HAWKINS UNI REAL 5 [facility] TIME INC INC WITH IMAGE COMPLETE US BREAST 87926 [facility] REAL 5 MEDICAL MEDICAL TIME IMAGING IMAGING WITH ASS ASS IMAGE LIMITED DIAGNOSTI G0206 ROSS HAWKINS C 5 [facility] MAMMOGRAP INC INC HY INCL CAD WHEN PERF; UNI COLONOSCO 74900 [facility] JACQUI TOD PY 5 PHYSICIAN W/BIOPSY S GROUP SINGLE/MU LTIPLE EGD 71321 [facility] JACQUI TOD TRANSORAL 5 PHYSICIAN BIOPSY S GROUP SINGLE/[place] [address] ROSS HAWKINS INFUSION 5 [facility] THERAPY INC INC PROPHYLAX IS/DX EA HOUR PRTBLE E0431 DAREK RAMIREZRELL GASEOUS 5 HOME HOME O2 SYS MEDICAL MEDICAL RENT; EQUIPME EQUIPME FLWMTR HUMIDFR&M ASK O2 CONC 1 E1390 ADREK [place] PORT 5 HOME HOME 85%/>02 MEDICAL MEDICAL CONC AT EQUIPME EQUIPME PRSC FLW RATE LALA 21471 ROSS GILES POST-VOID 5 [facility] RESIDUAL P URINE&/BL ADDER CAP PRTBLE E0431 DAREK OSWALD GASEOUS 5 HOME HOME O2 SYS MEDICAL MEDICAL RENT; EQUIPME EQUIPME FLWMTR HUMIDFR&M ASK O2 CONC 1 E1390 DAREK [place] 5 HOME HOME 85%/>02 MEDICAL MEDICAL CONC AT EQUIPME EQUIPME PRS FLW RATE POLYSOM 13012 LEE XIE MAR 6/>YRS 5 SLEEP 4/> NEUROSCIE ADDL NCES CENT RERE ATTND POLYSOM 34225 ROSS HAWKINS 6/>YRS 5 [facility] SLEEP 4/> INC INC ADDL RERE ATTND O2 CONC 1 E1390 DAREK [place] PORT 5 HOME HOME 85%/>02 MEDICAL MEDICAL CONC AT EQUIPME EQUIPME PRSC FLW RATE PRTBLE E0431 DAREK OSWALD GASEOUS 5 HOME HOME O2 SYS MEDICAL MEDICAL RENT; EQUIPME EQUIPME FLWMTR HUMIDFR&[place] [address] [facility] CAR [place]AY[place] ACTIVTD 5 [place] [facility] ECG DWNLD MEDICAL W/R&I G </30 DAYS ALBUTEROL J7620 YOUR YOUR TO 2.5 5 PHARMACY PHARMACY [employer] [facility] IPRATROPI UM BROM TO 0.5 MG PHRM Q0513 YOUR YOUR DISPENSIN 5 PHARMACY PHARMACY G FEE LLC LLC INHALATIO N RX; PER 30 DAYS PRTBLE E0431 DAREK OSWALD GASEOUS 5 HOME HOME O2 SYS MEDICAL MEDICAL RENT; EQUIPME EQUIPME FLWMTR HUMIDFR&M ASK O2 CONC 1 E1390 DAREK [place] PORT 5 HOME HOME 85%/>02 MEDICAL MEDICAL CONC AT EQUIPME EQUIPME [facility] FLW RATE THERAPEUT 96164 ROSS HAWKINS IC 5 [facility] PROPHYLAC INC INC TIC/DX INJECTION SUBQ/IM RADIOLOGI 73629 [facility] LEMUS C EXAM 5 MEDICAL ELISSA CHEST 2 IMAGING VIEWS ASS FRONTAL&L ATERAL ECG 61715 ROSS VASQUEZ JR ROUTINE 5 [facility] W/LEAST P 12 LDS I&R ONLY O2 CONC 1 E1390 DAREK [place] PORT 5 HOME HOME 85%/>02 MEDICAL MEDICAL CONC AT EQUIPME EQUIPME PRS FLW RATE PRTBLE E0431 DAREKDONNA OSWALD GASEOUS 5 HOME HOME O2 SYS MEDICAL MEDICAL RENT; EQUIPME EQUIPME FLWMTR HUMIDFR&M ASK PULM G0424 ROSS HAWKINS REHAB 4 MEM [...] HR PER SESS TO 2 PER DAY EXTERNAL 11491 ROSS HAWKINS ECG 4 [facility] SCANNING INC INC ANALYSIS REPORT NON-INVAS 73303 [place] CLEO CLAUDE 4 MEDICAL NOHEMI PHYSIOLOG IMAGING IC STUDY ASS EXTREMITY 3 LEVLS XTRNL ECG 43293 ROSS HAWKINS & 48 HR 4 [facility] RECORDING INC INC DUP-SCAN 49076 ROSS HAWKINS LXTR 4 [facility] ART/ARTL INC INC BPGS COMPL BI STUDY O2 CONC 1 E1390 DAREK [place] 4 HOME HOME 85%/>02 MEDICAL MEDICAL CONC AT EQUIPME EQU[facility]ME [facility] FLW RATE PRTBLE E0431 DAREK DAREK GASEOUS 4 HOME HOME O2 SYS MEDICAL MEDICAL RENT; EQUIPME EQUIPME FLWMTR HUMIDFR&M ASK PHRM Q0513 YOUR YOUR DISPENSIN 4 PHARMACY PHARMACY G [facility] [employer] INHALATIO N RX; PER 30 DAYS ALBUTEROL J7620 YOUR YOUR TO 2.5 4 PHARMACY PHARMACY [facility] [employer] [facility] IPRATROPI UM BROM TO 0.[address] THORAX 28392 ROSS HAWKINS W/O 4 [facility] CONTRAST INC INC MATERIAL O2 CONC 1 E1390 DAREK OSWALD DEL PORT 4 HOME HOME 85%/>02 MEDICAL MEDICAL CONC AT EQUIPME EQUIPME PRSC FLW RATE PRTBLE E0431 DAREK OSWALD GASEOUS 4 HOME HOME O2 SYS MEDICAL MEDICAL RENT; EQUIPME EQUIPME FLWMTR HUMIDFR&M ASK ALBUTEROL J7620 YOUR YOUR TO 2.5 4 PHARMACY PHARMACY [employer] IPRATROPI UM BROM TO 0.5 MG PHRM Q0513 YOUR YOUR DISPENSIN 4 PHARMACY PHARMACY G [facility] [employer] INHALATIO N RX; PER 30 DAYS PRTBLE E0431 DAREK OSWALD GASEOUS 4 HOME HOME O2 SYS MEDICAL MEDICAL RENT; EQUIPME EQUIPME FLWMTR HUMIDFR&M ASK O2 CONC 1 E1390 DAREK OSWALD DEL PORT 4 HOME HOME 85%/>02 MEDICAL MEDICAL CONC AT EQUIPME EQUIPME PRSC FLW RATE INJECTION J0696 [facility] 4 PHYSICIAN PHYSICIAN CEFTRIAXO S GROUP S GROUP NE SODIUM PER 250 MG THERAPEUT 28563 [facility] IC 4 PHYSICIAN PHYSICIAN PROPHYLAC S GROUP S GROUP TIC/DX INJECTION SUBQ/IM THERAPEUT 14758 [facility] IC 4 PHYSICIAN PHYSICIAN PROPHYLAC S GROUP S GROUP TIC/DX INJECTION SUBQ/IM INJECTION J0696 [facility] 4 PHYSICIAN PHYSICIAN CEFTRIAXO S GROUP S GROUP NE SODIUM PER 250 MG INJECTION J1040 [facility] 4 PHYSICIAN PHYSICIAN METHYLPRE S GROUP S GROUP DNISOLONE ACETATE 80 MG ECG 50299 ROSS VASQUEZ JR ROUTINE 4 [facility] W/LEAST P 12 LDS I&R ONLY PRTBLE E0431 DAREK OSWALD GASEOUS 4 HOME HOME O2 SYS MEDICAL MEDICAL RENT; EQUIPME EQUIPME FLWMTR HUMIDFR&M ASK O2 CONC 1 E1390 DAREK OSWALD DEL [place] 4 HOME HOME 85%/>02 MEDICAL MEDICAL CONC AT EQUIPME EQUIPME PRSC FLW RATE RADIOLOGI 97673 BALDEV GALLO C EXAM 4 MEDICAL NOHEMI CHEST 2 IMAGING VIEWS ASS FRONTAL&L ATERAL DUP-SCAN 04639 ROSS HAWKINS XTR VEINS 4 [facility] INC INC UNILATERA L/LIMITED STUDY ECG 81774 ALFARIS ALFARIS ROUTINE 4 [facility] ECG W/LEAST 12 LDS I&R ONLY BRNCDILAT 66774 JERROD ELDER RSPSE 4 IZA IZA SPMTRY PRE&POST- BRNCDILAT ADMN GAS 34098 ROSS HAWKINS DILUT/WAS 4 [facility] HOUT LUNG INC INC VOL W/WO DISTRIB VENT&V GAS 01410 JERROD SPARROWSON DILUT/WAS 4 IAZ IZA HOUT LUNG VOL W/WO DISTRIB VENT&[place] [address] KYARASON BESSON DIFFUSING 4 IZA IZA CAPACITY APPL 16275 ROSS HAWKINS MODALITY 4 [facility] 1/> AREAS INC INC ULTRASOUN D EA 15 MIN APPL 88657 ROSS HAWKINS MODALITY 4 [facility] 1/> AREAS INC INC IONTOPHOR ESIS EA 15 MIN THERAPEUT 37885 ROSS HAWKINS IC PX 1/> 4 [facility] AREAS INC INC EACH 15 MIN EXERCISES E-STIM G0283 ROSS HAWKINS 1/> AREAS 4 [facility] OTH THAN INC INC WND CARE PART TX PLAN E-STIM G0283 ROSS HAWKINS 1/> AREAS 4 [facility] OTH THAN INC INC WND CARE PART TX PLAN APPL 73080 ROSS HAWKINS MODALITY 4 [facility] 1/> AREAS INC INC IONTOPHOR ESIS EA 15 MIN PHYSICAL 94604 ROSS HAWKINS THERAPY 4 [facility] EVALUATIO INC INC N APPL 79250 ROSS HAWKINS MODALITY 4 [facility] 1/> AREAS INC INC ULTRASOUN D EA 15 MIN ESOPHAGOS 24808 [facility] COPY 4 FRANKIE FRANKIE FLEXIBLE GUIDE WIRE DILATION LARGSC 07706 [facility] EXC 4 FRANKIE FRANKIE OVI&/STRP G CORDS/EPI GL MCRSCP/TL SCP ECG 26121 ROSS HAWKINS ROUTINE 4 [facility] ECG INC INC W/LEAST 12 LDS TRCG ONLY W/O I&R RADIOLOGI 19711 ROSS HAWKINS C EXAM 4 [facility] CHEST 2 INC INC VIEWS FRONTAL&L ATERAL RADEX 95652 ROSS HAWKINS ESOPHAGUS 4 [facility] INC INC ALBUTEROL J7620 YOUR YOUR TO 2.5 4 PHARMACY PHARMACY [employer] [facility] IPRATROPI UM BROM TO 0.5 MG PHR Q0513 YOUR YOUR DISPENSIN 4 PHARMACY PHARMACY [facility] LLC INHALATIO N RX; PER 30 DAYS PHRM Q0513 YOUR YOUR DISPENSIN 4 PHARMACY PHARMACY [facility] [employer] [facility] INHALATIO N RX; PER 30 DAYS ALBUTEROL J7620 YOUR YOUR TO 2.5 4 PHARMACY PHARMACY [employer] [facility] IPRATROPI UM BROM TO 0.5 MG [facility] G0463 ROSS HAWKINS OUTPATIEN 4 [facility] T CLIN INC INC VISIT ASSESS & MGMT PT RADIOLOGI 00500 CLEO GALLO C EXAM 3 NOHEMI NOHEMI CHEST 2 VIEWS FRONTAL&L ATERAL ECG 99195 BREEZY MERCEDES ROUTINE 3 MATY MATY ECG W/LEAST 12 LDS I&R ONLY NONCOVERE A9270 [facility] ITEM OR 3 [facility] HOSPITAL SERVICE RADIOLOGI 75570 ROSS HAWKINS C 3 [facility] EXAMINATI INC INC ON CHEST SINGLE VIEW FRONTAL ECG 59920 ROSS HAWKINS ROUTINE 3 [facility] ECG INC INC W/LEAST 12 LDS TRCG ONLY W/O I&R ECG 66419 BREEZY MERCEDES ROUTINE 3 MATY MATY ECG W/LEAST 12 LDS I&R ONLY RHYTHM 70412 ROSS HAWKINS ECG 1-3 3 [facility] LEADS INC INC TRACING ONLY W/O I&R PRESSURIZ 01623 ROSS HAWKINS ED/NONPRE 3 [facility] SSURIZED INC INC INHALATIO N TREATMENT THER 72828 ROSS HAWKINS PROPH/DX 3 [facility] NJX IV INC INC PUSH SINGLE/1S T SBST/DRUG PHRM Q0513 YOUR YOUR DISPENSIN 3 PHARMACY PHARMACY [facility] [employer] INHALATIO N RX; PER 30 DAYS ALBUTEROL J7620 YOUR YOUR TO 2.5 3 PHARMACY PHARMACY [facility] [employer] [facility] IPRATROPI UM BROM TO 0.5 MG DUP-SCAN 53538 ROSS HAWKINS LXTR 3 [facility] ART/ARTL INC INC BPGS COMPL BI STUDY SPMTRY 76090 ROSS ALANIZON W/VC 3 [facility] EXPIRATOR INC INC Y JG W/WO MXML VOL VNTJ RADEX 25977 ROSS HAWKINS SPINE 3 [facility] LUMBOSACR INC INC AL MINIMUM 4 VIEWS RADEX HIP 11006 ROSS HAWKINS 3 [facility] UNILATERA INC INC L COMPLETE MINIMUM [address] THORAX 57323 ROSS HAWKINS W/O 3 [facility] CONTRAST INC INC MATERIAL 3D 79993 CLEO CLEO RENDERING 3 NOHEMI NOHEMI W/INTERP& POSTPROC DIFF WORK STATION ECG 21842 OSMAR PRASAD ROUTINE 3 III IRAIDA III IRAIDA ECG W/LEAST 12 LDS I&R ONLY RADIOLOGI 97242 CLEO CLEO C 3 NOHEMI NOHEMI [place]AMINAT[place] [address] ROSS ALANIZON HEAD/BRAI 3 [facility] N W/O INC INC CONTRAST MATERIAL SBSQ 69289 [facility]ON [facility] NURSING 3 IZA IZA FACILITY CARE/DAY E/M [place] 10 [place] [address] CLEO CLEO RETROPERI 3 NOHEMI NOHEMI TONEAL REAL TIME W/IMAGE COMPLETE SBSQ 31288 [facility] 3 IZA IZA FACILITY CARE/DAY E/M STABLE 10 MIN RADIOLOGI 27575 CLEO CLEO C EXAM 3 NOHEMI NOHEMI CHEST 2 VIEWS FRONTAL&L ATERAL RADEX 03942 CLEO CLEO ABDOMEN 1 3 NOHEMI NOHEMI ANTEROPOS TERIOR VIEW SBSQ 47442 JERROD ELDER NURSING 3 IZA IZA FACILITY CARE/DAY E/M ST[place] [address] CLEO CLEO ABDOMINAL 3 NOHEMI NOHEMI REAL TIME W/IMAGE DOCUMENTA TION US SOFT 09645 CLEO CLEO TISSUE 3 NOHEMI NOHEMI HEAD & NECK REAL TIME IMGE DOCM RADIOLOGI 88313 CLEO CLEO C EXAM 3 NOHEMI NOHEMI CHEST 2 VIEWS FRONTAL&L ATERAL ECHO 83314 MCKEMIE MCKEMIE TTHRC R-T 3 JR IRAIDA JR IRAIDA 2D W/WOM-MOD E COMPL SPEC&COLR D RADIOLOGI 16843 ROSS HAWKINS C EXAM 3 [facility] CHEST 2 INC INC VIEWS FRONTAL&L ATERAL ECG 67194 JERROD JERROD ROUTINE 3 IZA IZA ECG W/LEAST 12 LDS W/I&R RADIOLOGI 02940 CORRIE CORRIE C 3 RHO RHO EXAMINATI ON CHEST SINGLE VIEW FRONTAL RADIOLOGI 45529 SAMSON SAMSON C 3 TIFFANIE TIFFANIE EXAMINATI ON CHEST SINGLE VIEW FRONTAL RADIOLOGI 79098 CORRIE CORRIE C 3 RHO RHO EXAMINATI ON CHEST SINGLE VIEW FRONTAL INTUBATIO 83313 JERONIMO DON N 3 ENDOTRACH EAL EMERGENCY PROCEDURE ECHO 38086 MERLENE MUB MERLENE MUB TTHRC R-T 3 2D W/WOM-MOD E COMPL SPEC&COLR D ECG 68965 JERROD SPARROWYISEL ROUTINE 3 IZA IZA ECG W/LEAST 12 LDS I&R ONLY CT THORAX 32768 CLEO CLEO W/O 3 NOHEMI NOHEMI CONTRAST MATERIAL CRITICAL 68212 MOAMMAR MOAMMAR CARE 3 NASIMA NASIMA ILL/INJUR ED PATIENT INIT 30-74 MIN CRITICAL 94710 JERONIMO DON CARE 3 ILL/INJUR ED PATIENT ADDL 30 MIN ECHO 51688 ANJUR-REANNA ANJUR-REANNA TTHRC R-T 3 ALI GOMEZ ALI GOMEZ 2D W/WOM-MOD E COMPL SPEC&COLR D ECG 03435 ANJUR-REANNA ANJUR-RAENNA ROUTINE 3 ALI GOMEZ ALI GOMEZ ECG W/LEAST 12 LDS I&[place] [address] HAJIBRAHI HAJIBRAHI ABDOMEN & 3 M SARAH M SARAH PELVIS W/O CONTRAST MATERIAL RADIOLOGI 78807 LURDES LURDES C 3 ANASTACIA ANASTACIA EXAMINATI ON CHEST SINGLE VIEW FRONTAL ECG 39500 ALBERT IZA ALBERT IZA ROUTINE 3 ECG W/LEAST 12 LDS I&R ONLY ECG 47728 DELIA DELIA ROUTINE 3 MATY MATY ECG W/LEAST 12 LDS I&R ONLY RADIOLOGI 48657 WESTERFIE WESTERFIE C EXAM 3 LD IV A LD IV A CHEST 2 VIEWS FRONTAL&L ATERAL ECG 14677 KYARASON BESSON ROUTINE 3 IZA IZA ECG W/LEAST 12 LDS I&R ONLY RADIOLOGI 64915 CLEO CLEO C 3 NOHEMI NOHEMI EXAMINATI ON CHEST SINGLE VIEW FRONTAL ECHO 61063 MCKEMIE MCKEMIE TTHRC R-T 3 JR IRAIDA KHOURY 2D W/WOM-MOD E COMPL SPEC&COLR D ECG 46390 MCKEMIE MCKEMIE ROUTINE 3 JR IRAIDA KHOURY ECG W/LEAST 12 LDS I&R ONLY RADIOLOGI 23266 CLEO LCEO C 3 NOHEMI NOHEMI EXAMINATI ON CHEST SINGLE VIEW FRONTAL INTUBATIO 62600 BREEZY CARBALLOEY N 3 MATY MATY ENDOTRACH EAL EMERGENCY PROCEDURE CRITICAL 40220 BREEZY [facility] CARE 3 MATY MATY ILL/INJUR ED PATIENT ADDL 30 MIN CRITICAL 48647 [facility] MATY MATY ILL/INJUR ED PATIENT INIT 30-74 MIN CONT 9671 ROSS HAWKINS INVASIVE 3 [facility] MECH VENT INC INC < 96 CONSECUTI VE HOURS INSERTION 9604 ROSS HAWKINS OF 3 [facility] ENDOTRACH INC INC EAL TUBE PHRM Q0513 YOUR YOUR DISPENSIN 3 PHARMACY PHARMACY G [facility] [employer] INHALATIO N RX; PER 30 DAYS ALBUTEROL J7620 YOUR YOUR TO 2.5 3 PHARMACY PHARMACY [facility] IPRATROPI UM BROM TO 0.5 MG RADEX 28015 CLEO CLEO FOOT 3 NOHEMI NOHEMI COMPLETE MINIMUM 3 VIEWS INJECTION J1380 HARPEL HARPEL 3 STEFANIE STEFANIE ESTRADIOL VALERATE UP TO 10 MG THERAPEUT 92798 HARPEL HARPEL IC 3 STEFANIE STEFANIE PROPHYLAC TIC/DX INJECTION SUBQ/IM THERAPEUT 53017 HARPEL HARPEL IC 3 STEFANIE STEFANIE PROPHYLAC TIC/DX INJECTION SUBQ/IM INJECTION J1380 HARPEL HARPEL 3 STEFANIE STEFANIE ESTRADIOL VALERATE UP TO 10 MG ALBUTEROL J7620 YOUR YOUR TO 2.5 2 PHARMACY PHARMACY MG & IPRATROPI [place] [address] [place] [address] CLEO CLEO ANGIOGRAP 2 NOHEMI NOHEMI HY HEAD W/CONTRAS T/NONCONT RAST ANGIOGRAP 35232 FALLUJI FALLUJI HY 2 MEME MEME CAROTID CERVICAL BILATERAL RS&I ECG 63866 ROSS HAWKINS ROUTINE 2 [facility] ECG INC INC W/LEAST 12 LDS TRCG ONLY W/O I&R ANGIOGRAP 73663 FALLUJI FALLUJI HY 2 MEME MEME CERVICOCE REBRAL CATHETER RS&I SLCTV 72896 FALLUJI FALLUJI CATHJ 1ST 2 MEME MEME 2ND ORD THRC/BRCH /[place] [address] LARISA TENORIOI 2 EMERGENCY EMERGENCY TONEAL SERVICES SERVICES REAL TIME W/IMAGE LIMITED COMPREHEN 03609 ROSS HAWKINS SIVE 2 [facility] METABOLIC INC INC PANEL COLLECTIO 42657 ROSS HAWKINS N VENOUS 2 [facility] BLOOD INC INC VENIPUNCT URE US SOFT 70082 CLEO CLEO TISSUE 2 NOHEMI NOHEMI HEAD & NECK REAL TIME IMGE DOC COMPUTER- 20158 ROSS HAWKINS AIDED 2 [facility] DETECTION INC INC SCREENING MAMMOGRAP HY RADEX 49660 ROSS HAWKINS ESOPHAGUS 2 [facility] INC INC RADIOLOGI 19442 ROSS HAWKINS C EXAM 2 [facility] CHEST 2 INC INC VIEWS FRONTAL&L ATERAL SCREENING G0202 ROSS HAWKINS 2 [facility] MAMMOGRAP INC INC HY HERNÁN INCL CAD WHEN PERFORMD BLOOD 03799 HARPEL HARPEL OCCULT 2 STEFANIE STEFANIE PEROXIDAS E ACTV QUAL FECES 1 DETER ADMN SET A7003 YOUR YOUR SM VOL 2 PHARMACY PHARMACY NONFILTR PNEUMAT NEBULIZR DISPBL ALBUTEROL J7620 YOUR YOUR TO 2.5 2 PHARMACY PHARMACY MG & IPRATROPI UM BROM TO 0.[address] THORAX 76269 CLEO CLEO 2 NOHEMI NOHEMI W/CONTRAS T MATERIAL CT THORAX 31762 ROSS ROSS W/O 2 [facility] CONTRAST INC INC MATERIAL 3D 40880 CLEO CLEO RENDERING 2 NOHEMI NOHEMI W/INTERP& POSTPROC DIFF WORK STATION ADMN SET A7003 YOUR YOUR SM VOL 2 PHARMACY PHARMACY NONFILTR PNEUMAT NEBULIZR DISPBL ALBUTEROL J7620 YOUR YOUR TO 2.5 2 PHARMACY PHARMACY MG & IPRATROPI UM BROM TO 0.5 MG THERAPEUT 08134 HARPEL HARPEL IC 2 STEFANIE STEFANIE PROPHYLAC TIC/DX INJECTION SUBQ/IM THERAPEUT 23381 HARPEL HARPEL IC 2 STEFANIE STEFANIE PROPHYLAC TIC/DX INJECTION SUBQ/IM THERAPEUT 12210 HARPEL HARPEL IC 2 STEFANIE STEFANIE PROPHYLAC TIC/DX INJECTION SUBQ/IM THERAPEUT 65936 HARPEL HARPEL IC 2 STEFANIE STEFANIE PROPHYLAC TIC/DX INJECTION SUBQ/IM CATH PLMT 19867 FALLUDAYO ALFORDUDAYO L HRT & 2 MEME MEME ARTS W/NJX & ANGIO IMG S&I ALBUTEROL J7620 YOUR YOUR TO 2.5 2 PHARMACY PHARMACY [facility] IPRATROPI UM BROM TO 0.5 MG THERAPEUT 43655 BRIJESH COLEY R IC 2 AZUL LIANG MD PROPHYLAC TIC/DX INJECTION SUBQ/IM SPMTRY 39289 ROSS HAWKINS W/VC 2 [facility] EXPIRATOR INC INC Y JG W/WO MXML VOL VNTJ E-STIM G0283 ROSS HAWKINS 1/> AREAS 2 [facility] OTH THAN INC INC WND CARE PART TX PLAN APPLICATI 57530 ROSS HAWKINS ON 2 [facility] MODALITY INC INC 1/> AREAS HOT/COLD PACKS APPL 62338 ROSS HAWKINS MODALITY 2 [facility] 1/> AREAS INC INC ULTRASOUN D EA 15 MIN THERAPEUT 65620 ROSS HAWKINS IC PX 1/> 2 [facility] AREAS INC INC EACH 15 MIN EXERCISES APPL 60926 ROSS HAWKINS MODALITY 2 [facility] 1/> AREAS INC INC ULTRASOUN D EA 15 MIN PHYSICAL 47812 ROSS HAWKINS THERAPY 2 [facility] EVALUATIO INC INC N APPLICATI 92875 ROSS HAWKINS ON 2 [facility] MODALITY INC INC 1/> AREAS HOT/COLD PACKS E-STIM G0283 ROSS HAWKINS 1/> AREAS 2 [facility] OTH THAN INC INC WND CARE PART TX PLAN ECHO 79413 ROSS HAWKINS TTHRC R-T 2 [facility] 2D INC INC W/WOM-MOD E COMPL SPEC&COLR D CT THORAX 43263 ROSS HAWKINS W/O 2 [facility] CONTRAST INC INC MATERIAL 3D 90662 ROSS HAWKINS RENDERING 2 [facility] INC INC W/INTERP& POSTPROC DIFF WORK STATION THERAPEUT 00906 AZUL LIANG IC 2 STEFANIE WATTS PROPHYLAC TIC/DX INJECTION SUBQ/IM DUPLEX 38032 ROSS HAWKINS SCAN 2 [facility] EXTRACRAN INC INC IAL ART COMPL BI STUDY XTRNL ECG 48311 JERROD ELDER 2 IZA IZA CONTINUOU S RHYTHM W/I&R UP TO 48 HRS EXTERNAL 37911 ROSS HAWKINS ECG 2 [facility] SCANNING INC INC ANALYSIS REPORT XTRNL ECG 45700 ROSS HAWKINS & 48 HR 2 [facility] RECORDING INC INC THERAPEUT 40882 BRIJESH [place] IC 2 AZUL LIANG MD PROPHYLAC TIC/DX INJECTION SUBQ/IM AREO MASK A7015 YOUR YOUR USED W/ 2 PHARMACY PHARMACY [employer] ALBUTEROL J7620 YOUR YOUR TO 2.5 2 PHARMACY PHARMACY [employer] IPRATROPI UM BROM TO 0.5 MG ADMN SET A7003 YOUR YOUR SM VOL 2 PHARMACY PHARMACY [employer] [facility] PNEUMAT NEBULIZR DISPBL INJECTION J1380 BRIJESH LIANG 2 AZUL WATTS ESTRADIOL VALERATE UP TO 10 MG INJECTION J1380 BRIJESH LIANG MD STEFANIE ESTRADIOL VALERATE UP TO [address] THORAX 63643 ROSS HAWKINS W/O 1 [facility] CONTRAST INC INC MATERIAL 3D 46452 [place] CLEO RENDERING 1 MEDICAL NOHEMI IMAGING W/INTERP& ASS POSTPROC DIFF WORK STATION 3D 37743 [place] CLEO RENDERING 1 MEDICAL NOHEMI W/INTERP IMAGING & ASS POSTPROCE SS SUPERVISI [place] MRI 43864 [place] CLEO SPINAL 1 MEDICAL NOHEMI CANAL IMAGING LUMBAR ASS W/O CONTRAST MATERIAL ADMN SET A7003 YOUR YOUR SM VOL 1 PHARMACY PHARMACY [employer] PNEUMAT NEBULIZR DISPBL ALBUTEROL J7620 YOUR YOUR TO 2.5 1 PHARMACY PHARMACY [facility] IPRATROPI UM BROM TO 0.5 MG AREO MASK A7015 YOUR YOUR USED W/ 1 PHARMACY PHARMACY [employer] COMPUTER- [id number] [facility] AIDED 1 MEDICAL MEDICAL DETECTION IMAGING IMAGING DX ASS ASS MAMMOGRAP HY NEBULIZER E0570 DAREK OSWALD WITH 1 HOME HOME [facility]PRESS[facility] MEDICAL MEDICAL R EQUIPME EQUIPME NEBULIZER E0570 DAREK OSWALD WITH 1 HOME [facility]ICAL MEDICAL R EQUIPME EQUIPME INSJ 06763 ROSS GILES NON-NDWEL 1 [facility] BLADDER P CATHETER 3D 67559 [place] [facility] 1 MEDICAL NOHEMI IMAGING W/INTERP& ASS POSTPROC DIFF WORK STATION CT THORAX 79034 [place] W/O 1 MEDICAL NOHEMI CONTRAST IMAGING MATERIAL ASS INJECTION J1380 BRIJESH LIANG 1 [facility] PALMER STEFANIE ESTRADIOL VALERATE UP TO 10 MG ECG 27819 [facility] ROUTINE 1 [facility] ECG INC INC W/LEAST 12 LDS TRCG ONLY W/O I&R SLING 80654 ROS[facility] HAWKINS OPERATION 1 [facility] STRESS INC INC INCONTINE NCE URNLS DIP 40540 ROSS HAWKINS 1 [facility] STICK/TAB INC INC LET REAGENT AUTO MICROSCOP Y ECG 64314 ROSS ELDER ROUTINE [address] [facility] W/LEAST P 12 LDS I&R ONLY ANES 23128 [facility] 1 ANESTH MARIJA TONEAL OF THE LWR ABD BLUE W/URINARY TRACT NOS REPAIR C1771 ROS[facility] HAWKINS DEVICE 1 [facility] URINARY INC INC INCONTINE NCE W/[place] [address] ROS[facility] HAWKINS INFUSION 1 [facility] THERAPY INC INC PROPHYLAX IS/DX EA HOUR PRESSURIZ 01889 ROSS HAWKINS ED/NONPRE 1 [facility] SSURIZED [place] [address] [facility] HAWKINS INFUSION 1 [facility] THERAPY/P INC INC ROPHYLAXI S /DX 1ST TO 1 HR NEBULIZER E0570 DAREK OSWALD WITH 1 HOME HOME [facility] MEDICAL MEDICAL R EQUIPME EQUIPME BLOOD 13748 [facility] HAWKINS COUNT 1 [facility] COMPLETE INC INC AUTO&AUTO DIFRNTL WBC COLLECTIO 48998 ROSS ROSS N VENOUS 1 [facility] BLOOD INC INC VENIPUNCT URE LIPID 83222 ROS[facility]WKINS PANEL 1 [facility] INC INC COMPREHEN 10846 ROS[facility] HAWKINS SIVE 1 [facility] METABOLIC INC INC PANEL BASIC 50054 ROSS ROSS METABOLIC 1 [facility] PANEL INC INC CALCIUM TOTAL ADMN SET A7003 YOUR YOUR SM VOL 1 PHARMACY PHARMACY [facility] PNEUMAT NEBULIZR DISPBL ALBUTEROL J7620 YOUR YOUR TO 2.5 1 PHARMACY PHARMACY [facility] & [facility] IPRATROPI UM BROM TO 0.5 MG PHRM Q0513 YOUR YOUR DISPENSIN 1 PHARMACY PHARMACY G FEE [facility] INHALATIO N RX; PER 30 DAYS INJECTION J1380 BRIJESH LIANG 1 [facility] W[facility]TS ESTRADIOL VALERATE UP TO 10 MG NEBULIZER E0570 DAREK OSWALD WITH 1 HOME HOME [facility] MEDICAL MEDICAL R EQUIPME EQUIPME URNLS DIP 05064 [facility] 1 [facility] STICK/TAB INC INC LET RGNT NON-AUTO W/O MICRSCP NEBULIZER E0570 DAREK OSWALD WITH 1 HOME HOME [facility] MEDICAL MEDICAL R EQUIPME EQUIPME ADMN SET A7003 YOUR YOUR SM VOL 1 PHARMACY PHARMACY [facility] PNEUMAT NEBULIZR DISPBL AREO MASK A7015 YOUR YOUR USED W/ 1 PHARMACY PHARMACY [facility] COLLECTIO 59156 ROSS ROSS N VENOUS 1 [facility] BLOOD INC INC VENIPUNCT URE 25 79198 ROSS HAWKINS HYDROXY 1 [facility] INCLUDES INC INC FRACTIONS IF PERFORMED CALCIUM 26619 ROSS HAWKINS IONIZED 1 [facility] INC INC CALCIUM 87047 ROSS HAWKINS TOTAL 1 [place] [address] ROSS HAWKINS THYROID 1 [facility] [place]UL[place] [address] ROSS HAWKINS THYROXINE 1 [facility] TOTAL INC INC NEBULIZER E0570 DAREK OSWALD WITH 1 HOME MED HOME MED COMPRESSO EQUIP. L EQUIP. L R INJECTION J1380 BRIJESH LIANG 1 [place] WATTS ESTRADIOL VALERATE UP TO 10 MG ADMN SET A7003 YOUR YOUR SM VOL 1 PHARMACY PHARMACY NONFILTR [facility] PNEUMAT NEBULIZR DISPBL ALBUTEROL J7620 YOUR YOUR TO 2.5 1 PHARMACY PHARMACY [facility] IPRATROPI UM BROM TO 0.5 MG PHRM Q0513 YOUR YOUR DISPENSIN 1 PHARMACY PHARMACY G FEE [facility] INHALATIO N RX; PER 30 DAYS NEBULIZER E0570 DAREK OSWALD WITH 1 HOME MED HOME MED COMPRESSO EQUIP. L EQUIP. L R INJECTION J1380 BRIJESH LIANG 1 AZUL PALMER STEFANIE ESTRADIOL VALERATE UP TO 10 MG NEBULIZER E0570 DAREK OSWALD WITH 1 HOME MED HOME MED COMPRESSO EQUIP. L EQUIP. L R INJECTION J1380 BRIJESH LIANG 1 AZUL WATTS ESTRADIOL VALERATE UP TO 10 MG CALCIUM 91545 ROSS HAWKINS TOTAL 1 [facility] INC INC CT THORAX 42619 [facility] 1 MEDICAL NOHEMI W/CONTRAS IMAGING T ASS MATERIAL CALCIUM 37399 ROSS HAWKINS IONIZED 1 [facility] INC INC CREATININ 06085 ROSS HAWKINS E BLOOD 1 [facility] [place] [address] ROSS HAWKINS UREA 1 [facility] NITROGEN INC INC QUANTITAT CLAUDE COLLECTIO 19397 ROSS HAWKINS N VENOUS 1 [facility] BLOOD INC INC VENIPUNCT URE 3D 61842 [facility] RENDERING 1 MEDICAL NOHEMI IMAGING W/INTERP& ASS POSTPROC DIFF WORK STATION NEBULIZER E0570 DAREK OSWALD WITH 1 HOME MED HOME MED COMPRESSO EQUIP. L EQUIP. L R INJECTION J1380 BRIJESH LIANG 1 [place] WATTS ESTRADIOL VALERATE UP TO 10 MG THERAPEUT 82001 BRIJESH LIANG IC 1 [place] WATTS PROPHYLAC TIC/DX INJECTION SUBQ/IM COLLECTIO 18752 ROSS HAWKINS N VENOUS 1 [facility] BLOOD INC INC VENIPUNCT URE CALCIUM 50566 ROSS HAWKINS TOTAL 1 [facility] [place] [address] ROSS HAWKINS FREE 1 [facility] [place] [address] ROSS HAWKINS THYROID 1 [facility] STIMULATI INC INC NG HORMONE TSH ALBUTEROL J7620 YOUR YOUR TO 2.5 1 PHARMACY PHARMACY MG & [employer] IPRATROPI UM BROM TO 0.5 MG ADMN SET A7003 YOUR YOUR SM VOL 1 PHARMACY PHARMACY NONFILTR [employer] PNEUMAT NEBULIZR DISPBL PHRM Q0513 YOUR YOUR DISPENSIN 1 PHARMACY PHARMACY G FEE [employer] INHALATIO N RX; PER 30 DAYS NEBULIZER E0570 DAREK OSWALD WITH 1 HOME MED HOME MED COMPRESSO EQUIP. L EQUIP. L [facility] [address] [facility] DISCHARGE 1 DON DON DAY MANAGEMEN T 30 MIN/< INITIAL 30655 [facility] 1 DON DON CARE/DAY 50 MINUTES ECG 35921 ROSS ELDER ROUTINE [address] [facility] W/LEAST P 12 LDS I&R ONLY ECG 15916 LARISA MERCEDES ROUTINE 1 [facility] ECG SERVICES W/LEAST 12 LDS I&R ONLY THERAPEUT 42130 BRIJESH LIANG IC 1 [place] WATTS PROPHYLAC TIC/DX INJECTION SUBQ/IM INJECTION J1380 BRIJESH LIANG 1 AZUL PALMER STEFANIE ESTRADIOL VALERATE UP TO 10 MG NEBULIZER E0570 DAREK OSWALD WITH 1 HOME MED HOME MED COMPRESSO EQUIP. L EQUIP. L R INJECTION J0970 BRIJESH LIANG 0 [place] WATTS ESTRADIOL VALERATE UP TO 40 MG US BONE 56950 BRIJESH LIANG DENSITY 0 AZUL WATTS LALA & [place] [address] ROSS HAWKINS FREE 0 [facility] [place] [address] ROSS HAWKINS THYROID 0 [facility] STIMULATI INC INC NG HORMONE TSH CALCIUM 24593 ROSS ALANIZON IONIZED 0 [facility] INC INC COLLECTIO 76265 ROSS HAWKINS N VENOUS 0 [facility] BLOOD INC INC VENIPUNCT URE US SOFT 98349 BALDEV LAURAUTCHER TISSUE 0 MEDICAL [place] HEAD & IMAGING NECK REAL ASS TIME IMGE DOCM NEBULIZER E0570 DAREK OSWALD WITH 0 HOME MED HOME MED COMPRESSO EQUIP. L EQUIP. L R CYTP C/V 77439 BIO BIO AUTO THIN 0 REFERNCE REFERNCE LYR LABORATOR LABORATOR PREPJ SCR IES IES MNL RESCR PHYS IADNA 59531 BIO BIO CHLAMYDIA 0 REFERNCE REFERNCE LABORATOR LABORATOR TRACHOMAT IES IES IS AMPLIFIED PROBE TQ COMPUTER- 59095 ROSS ALANIZON AIDED 0 [facility] DETECTION INC INC SCREENING MAMMOGRAP HY IADNA 19677 BIO BIO NEISSERIA 0 REFERNCE REFERNCE LABORATOR LABORATOR GONORRHOE IES IES AE AMPLIFIED PROBE TQ SCREENING G0202 ROSS HAWKINS 0 [facility] MAMMOGRAP INC INC HY HERNÁN INCL CAD WHEN PERFORMD CT THORAX 06700 ROSS HAWKINS W/O 0 [facility] CONTRAST INC INC MATERIAL BLOOD 98312 ROSS HAWKINS COUNT 0 [facility] COMPLETE INC INC AUTO&AUTO DIFRNTL WBC 3D 61539 ROSS HAWKINS RENDERING 0 [facility] INC INC W/INTERP& POSTPROC DIFF WORK STATION COLLECTIO 85936 ROSS HAWKINS N VENOUS 0 [facility] [place] [address] ROSS HAWKINS THYROID 0 [facility] STIMULAT[place] [address] ROSS HAWKINS FREE 0 [facility] THYROXINE INC INC DUPLEX 23402 ROSS ROSS SCAN 0 [facility] EXTRACRAN INC INC IAL ART COMPL BI STUDY CALCIUM 07975 ROSS HAWKINS TOTAL 0 [facility] INC INC ADMN SET A7003 DAREK OSWALD SM VOL 0 HOME MED HOME MED NONFILTR EQUIP. L EQUIP. L PNEUMAT NEBULIZR DISPBL PHARM G0333 YOUR YOUR DISPEN 0 PHARMACY PHARMACY [employer] RX; INITIAL 30-DAY SUPPLY NEBULIZER E0570 DAREK DAREK WITH 0 HOME MED HOME MED COMPRESSO EQUIP. L EQUIP. L R ALBUTEROL J7620 YOUR YOUR TO 2.5 0 PHARMACY PHARMACY [employer] IPRATROPI UM BROM TO 0.5 [place] [address] ROSS HAWKINS THYROID 0 [facility] STIMULATI INC INC NG HORMONE TSH COLLECTIO 84424 ROSS HAWKINS N VENOUS 0 [facility] BLOOD INC INC VENIPUNCT URE XTRNL ECG 67844 ROSS HAWKINS & 48 HR 0 [facility] RECORDING INC INC INJECTION J0970 BRIJESH LIANG 0 AZ[place] WATTS ESTRADIOL VALERATE UP TO 40 [facility] [address] [facility] DISCHAR[facility] 0 DON DON DAY MANAGEMEN T 30 MIN/< SBSQ 48219 [facility] 0 DON DON CARE/DAY 25 MINUTES SBSQ 35911 [facility] 0 DON DON CARE/DAY 25 MINUTES INITIAL 50670 [facility] 0 DON DON CARE/DAY 50 MINUTES RHYTHM 91130 LARISA SYKES ECG 1-3 0 [facility] INTERPRET ATION & REPRT ON ECG 94785 ROSS VASQUEZ DWI ROUTINE 0 [facility] W/LEAST P 12 LDS I&R ONLY INJECTION J0970 BRIJESH LIANG 0 [place] WATTS ESTRADIOL VALERATE UP TO 40 MG N-INVAS 23088 ROSS HAWKINS PHYSIOLOG 0 [facility] IC STD INC INC LXTR ART COMPL BI NON-INVAS 72057 ROSS HAWKINS CLAUDE 0 [facility] PHYSIOLOG INC INC IC STUDY EXTREMITY 3 LEVLS ECHO 22679 ROSS HAWKINS TTHRC R-T 0 [facility] 2D INC INC W/WOM-MOD E COMPL SPEC&COLR D INJECTION J0970 BRIJESH LIANG 0 AZUL PALMER STEFANIE ESTRADIOL VALERATE UP TO 40 MG CYSTO 47524 [facility] CALIBRATI 0 LTH SONDRA ON DILAT UROLOGY URTL PSC STRIX/[place] [address] ROSS HAWKINS INFUSION 0 [facility] THERAPY/P INC INC ROPHYLAXI S /DX 1ST TO 1 HR DILAT 51956 ROSS HAWKINS FEMALE 0 [facility] URETHRA INC INC GENERAL/C NDJ SPINAL ANES ANES 54603 [facility] TRANSURET 0 ANESTH HRAL OF THE W/[place] N[place] [address] ROSS HAWKINS INFUSION 0 [facility] THERAPY INC INC PROPHYLAX IS/DX EA HOUR INJECTION J0970 BRIJESH LIANG, 0 [place] ESTRADIOL VALERATE UP TO 40 MG URINALYSI 90334 BRIJESH LIANG, S 0 [place] MICROSCOP IC ONLY INJECTION J0970 BRIJESH LIANG 0 AZUL PALMER STEFANIE ESTRADIOL VALERATE UP TO 40 MG COLONOSCO 54263 Perla PHILLIPS PY FLX DX 0 JACQUELINE GONZALEZ W/ERIN PALMER PSC SPEC WHEN PFRMD URINALYSI 03618 BRIJESH LIANG, S 0 AZUL DAVIDSON IC ONLY INJECTION J0970 BRIJESH LIANG, 0 [place] ESTRADIOL VALERATE UP TO [address] THORAX 02984 BALDEV GALLO, W/O 0 MEDICAL [facility] CONTRAST IMAGING MATERIAL ASSOCIATE S 3D 56441 BALDEV CLEO, RENDERING 0 MEDICAL CIR[facility] IMAGING W/INTERP& ASSOCIATE POSTPROC S DIFF WORK STATION CARBON 10455 RODOLFO COHEN MONOXIDE 0 [facility] DIFFW/CAP SERV FOUNDATIO BRNCDILAT 85343 ROSS HAWKINS RSPSE 0 [facility] SPMTRY INC INC PRE&POST- BRNCDILAT ADMN FUNCTIONA 93919 ROSS HAWKINS L 0 [facility] RESIDUAL INC INC CAPACITY OR RESIDUAL VOLUME DETER 16149 ROSS HAWKINS MALDISTRI 0 [facility] BJ OF INC INC INSPIRED GAS N WSHOT CURVE DETER 81899 ROSS HAWKINS AIRWY 0 [facility] CLOSING INC INC VOL 1 BRTH TSTS PLETHYSMO 50006 RODOLFO COHEN GRAPY TOT 0 [facility] BDY I&R SERV ONLY FOUNDATIO PULMONARY 34698 RODOLFO COHEN STRESS 0 [facility] TESTING SERV SIMPLE FOUNDATIO URINLS 25309 BRIJESH LIANG, DIP 0 [place] [place] STICK/TAB LET REAGNT NON-AUTO MICRSCPY SIMPLE 20116 BRIJESH LIANG UROFLOMET 0 [place] [place] RY COMPLX 37487 BRIJESH LIANG CYSTOMETR 0 [place] [place] O W/VOID PRESS & URETHRAL PROFIL URINLS 78232 BRIJESH LIANG, DIP 0 [place] STICK/TAB LET REAGNT NON-AUTO MICRSCPY INJECTION J0970 BRIJESH LIANG, 0 [place] ESTRADIOL VALERATE UP TO 40 MG INJECTION J0970 BRIJESH LIANG, 0 [place] ESTRADIOL VALERATE UP TO 40 MG ECG 89849 ROSS HAWKINS ROUTINE 0 [facility] ECG INC INC W/LEAST 12 LDS TRCG ONLY W/O I&R ECG 60040 ROSS ELDER, ROUTINE 0 [facility] W/LEAST PROF SERV 12 LDS I&R ONLY RADIOLOGI 88638 Perla MOSLEY EXAM 0 MEDICAL CIRA CHEST 2 IMAGING VIEWS ASSOCIATE FRONTAL&L S ATERAL PRESSURIZ 57229 ROSS HAWKINS ED/NONPRE 0 [facility] SSURIZED INC INC INHALATIO N TREATMENT INJECTION J0970 Colt GRANT MD ESTRADIOL VALERATE UP TO 40 MG INJECTION J0970 Colt GRANT MD ESTRADIOL VALERATE UP TO 40 MG IADNA 98781 [facility] CHLAMYDIA 9 [facility] TRACHOMAT IS AMPLIFIED PROBE TQ CYTP C/V 92042 [facility] AUTO THIN 9 [facility] LYR PREPJ SCR MNL RESCR PHYS IADNA 27689 [facility] NEISSERIA 9 [facility] GONORRHOE AE AMPLIFIED PROBE TQ COMPUTER- 38059 ROSS HAWKINS AIDED 9 [facility] DETECTION INC INC SCREENING MAMMOGRAP HY SCREENING 91776 ROSS HAWKINS 9 [facility] MAMMOGRAP INC INC HY BILATERAL INJECTION J0970 BRIJESH LIANG, Colt [place] ESTRADIOL VALERATE UP TO 40 MG INJECTION 38517 [facility] FALLUJI, CARDIAC 9 PHYSICIAN NADEEM RAMSEY L S GROUP VENTR/L ATR ANGIOGRAP H L HRT 39662 [facility] FALLUJI, CATHETERI 9 PHYSICIAN NADEEM DIANE S GROUP [place] [address] [facility] FALLUJI, C-CATHJ 9 PHYSICIAN NADEEM [place] F/SLCTV C S GROUP ANGRPH I SI&R 32173 [facility] FALLU[facility], F/NJX PX 9 PHYSICIAN NADEEM [place] DURING S GROUP C-CATHJ VENTR&/AT R ANGRPH I SI&R 95909 [facility] FALLU[facility], F/NJX PX 9 PHYSICIAN NADEEM [place] DURING S GROUP C-CATHJ PULM&/[place] [address] [facility] Perla OROSCO-CATHJ 9 PHYSICIAN NADEEM Mary/AORTOGR S GROUP APY ECG 17857 GLENIS BOB 9 [facility] ECG CLINIC W/LEAST PSC 12 LDS I&R ONLY RADIOLOGI 04210 Perla MOSLEY EXAM 9 MEDICAL CIRA CHEST 2 IMAGING VIEWS ASSOCIATE FRONTAL&L S ATERAL RADIOLOGI 16776 Perla MOSLEY EXAM 9 MEDICAL CIRA CHEST 2 IMAGING VIEWS ASSOCIATE FRONTAL&L S ATERAL COLLECTIO 96183 ROSS HAWKINS N VENOUS 9 [facility] BLOOD INC INC VENIPUNCT URE BLOOD 50756 ROSS HAWKINS COUNT 9 [facility] COMPLETE INC INC AUTO&AUTO DIFRNTL WBC COMPREHEN 73368 ROSS HAWKINS SIVE 9 [facility] METABOLIC INC INC PANEL INJECTION J0970 BRIJESH LIANG, 9 [place] ESTRADIOL VALERATE UP TO 40 MG DOP 37774 ROSS HAWKINS ECHOCARD 9 [facility] COLOR INC INC FLOW VELOCITY MAPPING ECHO 09717 ROSS HAWKINS TRANSESOP 9 [facility] HAG R-T INC INC 2D W/PRB IMG ACQUISJ [place] [address] ROSS HAWKINS INFUSION 9 [facility] THERAPY INC [place] [address] ROSS HAWKINS INFUSION 9 [facility] THERAPY/P INC INC ROPHYLAXI S /DX 1ST TO [address] THORAX 15113 ROSS HAWKINS 9 [facility] W/CONTRAS INC INC T MATERIAL 3D 83269 ROSS HAWKINS RENDERING 9 [facility] INC INC W/INTERP& POSTPROC DIFF WORK STATION RADIOLOGI 68360 ROSS HAWKINS C EXAM 9 [facility] CHEST 2 INC INC VIEWS FRONTAL&L ATERAL RADIOLOGI 93947 Perla MOSLEY EXAM 9 MEDICAL CIRA CHEST 2 IMAGING VIEWS ASSOCIATE FRONTAL&L S ATERAL NATRIURET 18698 ROSS HAWKINS IC 9 [facility] PEPTIDE INC INC ECG 67069 ROSS BESSON, ROUTINE 9 [facility] W/LEAST PROF SERV 12 L[place] [address] ROSS HAWKINS TROPONIN 9 [facility] QUANTITAT INC INC CLAUDE ECHO 84402 [facility] FALLUDAYO, TTHRC R-T 9 PHYSICIAN NADEEM Simon GROUP W/WOM-MOD E COMPL SPEC&COLR D BLOOD 03122 ROSS HAWKINS COUNT 9 [facility] COMPLETE INC INC AUTO&AUTO DIFRNTL WBC ECG 12652 ROSS HAWKINS ROUTINE 9 [facility] ECG INC INC W/LEAST 12 LDS TRCG ONLY W/O I&R COMPREHEN 13033 ROSS HAWKINS SIVE 9 [facility] METABOLIC INC INC PANEL CREATINE 71072 ROSS HAWKINS KINASE MB 9 [facility] FRACTION INC INC ONLY CREATINE 17805 ROSS HAWKINS KINASE 9 [facility] TOTAL INC INC INJECTION J0970 Colt GRANT MD ESTRADIOL VALERATE UP TO 40 MG SEDIMENTA 27190 ROSS HAWKINS TION RATE 9 [facility] RBC INC INC NON-AUTOM ATED PRESSURIZ 35166 ROSS HAWKINS ED/NONPRE 9 [facility] SSURIZED INC INC INHALATIO N TREATMENT INJECTION J0970 Colt GRANT MD ESTRADIOL VALERATE UP TO 40 MG RADIOLOGI 54005 PETRA LAMBERT C 9 DON R DON R EXAMINATI ON CHEST SINGLE VIEW FRONTAL INJECTION J0970 Colt GRANT MD ESTRADIOL VALERATE UP TO 40 MG OPHTHALMO 62163 TERENCE PRATT, ANSELMO 9 PARI YAÑEZ EXTENDED RETINAL DRAWING I&R 1ST INJECTION J0970 Colt GRANT MD ESTRADIOL VALERATE UP TO 40 MG INJECTION J0970 BRIJESH LIANG, 9 [place] ESTRADIOL VALERATE UP TO 40 MG INJECTION J0970 BRIJESH LIANG, 9 [place] ESTRADIOL VALERATE UP TO 40 MG INJECTION J1040 PETRA LAMBERT, 9 DON R DON R METHYLPRE DNISOLONE ACETATE 80 MG INJECTION J0970 BRIJESH LIANG, 9 [place] ESTRADIOL VALERATE UP [place] [address] [place] [address] ROSS HAWKINS THYROID 9 [facility] STIMULATI INC INC NG HORMONE TSH BASIC 40600 ROSS HAWKINS METABOLIC 9 [facility] PANEL INC INC CALCIUM TOTAL URNLS DIP 85024 ROSS HAWKINS 9 [facility] STICK/TAB INC INC LET REAGENT AUTO MICROSCOP Y RADIOLOGI 43516 ROSS HAWKINS C EXAM 9 [facility] CHEST 2 INC INC VIEWS FRONTAL&L ATERAL BLOOD 66979 ROSS HAWKINS COUNT 9 [facility] COMPLETE INC INC AUTO&AUTO DIFRNTL WBC COLLECTIO 54224 ROSS HAWKINS N VENOUS 8 [facility] BLOOD INC INC VENIPUNCT URE LIPID 63185 ROSS HAWKINS PANEL 8 [facility] INC INC CALCIUM 03449 ROSS HAWKINS TOTAL 8 [facility] [place] [address] ROSS HAWKINS THYROID 8 [facility] STIMULATI INC INC NG HORMONE TSH INJECTION J1040 PETRA LAMBERT, Susannah HURLEY R DON R METHYLPRE DNISOLONE ACETATE 80 MG INJECTION J0970 BRIJESH LIANG, 8 [place] ESTRADIOL VALERATE UP TO 40 MG INJECTION J0970 Susannah GRANT MD ESTRADIOL VALERATE UP TO 40 MG PUNCTURE 11815 ROSS HAWKINS ASPIRATIO 8 [facility] N CYST INC INC BREAST CYTP EVAL 54513 PATHOLOGY PATHOLOGY FINE 8 & & NEEDLE CYTOLOGY CYTOLOGY ASPIRATE LAB LAB INTERP & RE[place] [address] ROSS HAWKINS GUIDANCE 8 [facility] NEEDLE INC INC PLACEMENT IMG S&I US BREAST 69646 [facility] LAUGHLIN 8 MED[facility] [place] P TIME IMAGING W/IMAGE ASSOCI[place] [address] PATHOLOGY PATHOLOGY SURG 8 & & PATHOLOGY CYTOLOGY CYTOLOGY LAB LAB GROSS&MATY ROSCOPIC EXAM EGD 99723 RODOLFO JENNIFER, TRANSORAL 8 [facility] ANDER BIOPSY SERV SINGLE/MU FOUNDATIO LTIPLE IV NFUS 37763 ROSS HAWKINS THER 8 [facility] PROPH/DX INC INC EA HR SPECIAL 61969 PATHOLOGY PATHOLOGY STAIN 8 & & GROUP 1 CYTOLOGY CYTOLOGY MICROORGA LAB LAB NISMS I&R SPCL STN 90263 PATHOLOGY PATHOLOGY 2 I&R 8 & & EXCPT CYTOLOGY CYTOLOGY MICROORG/ LAB [place] [address]96 ROSS HAWKINS THER 8 [facility] PROPH/DX INC INC 1ST >1 HR COMPREHEN 82446 ROSS HAWKINS SIVE 8 [facility] METABOLIC INC INC PANEL LIPID 38796 ROSS HAWKINS PANEL 8 [facility] INC INC URTL 33333 BRIJESH LIANG, PRESS 8 [place] PROFILE STDS BLADDER 23767 BRIJESH LIANG, PRESSURE 8 [place] MEASUREME NT DURING FILLING SIMPLE 58712 BRIJESH LIANG, UROFLOMET 8 [place] RY US BREAST 74071 [facility] LAUGHLIN 8 [facility]ICAL [place] P TIME IMAGING W/IMAGE ASSOCIATE DOCUMENTA S TION COLLECTIO 92195 ROSS HAWKINS N VENOUS 8 [facility] [place] [address] ROSS HAWKINS TROPONIN 8 [facility] QUANTITAT INC INC CLAUDE BLOOD 94871 ROSS HAWKINS COUNT 8 [facility] COMPLETE INC INC AUTO&AUTO DIFRNTL WBC RADIOLOGI 61631 ROSS HAWKINS C EXAM 8 [facility] CHEST 2 INC INC VIEWS FRONTAL&L ATERAL ECG 82852 ROSS HAWKINS ROUTINE 8 [facility] ECG INC INC W/LEAST 12 LDS TRCG ONLY W/O I&R BASIC 44369 ROSS HAWKINS METABOLIC 8 [facility] PANEL INC INC CALCIUM TOTAL CREATINE 72145 ROSS HAWKINS KINASE 8 [facility] TOTAL INC INC CREATINE 54850 ROSS HAWKINS KINASE MB 8 [facility] FRACTION INC INC ONLY INJ J0702 PETRA LAMBERT BETAMETHA 8 [facility] [place] SONE ACETATE & PHOSPHATE 3 MG IAADIADOO 69916 PETRA LAMBERT, Susannah DON R XAVI R STREPTOCO CCUS GROUP A INJECTION J0970 BRIJESH LIANG, 8 [place] ESTRADIOL VALERATE UP TO 40 MG SCR G0123 [facility] AMER[facility]ATH CYTOPATH 8 [facility] CERV/VAG INC INC SCR CYTOTECH UND PHYS SUPV FIBRIN 47461 ROSS HAWKINS DGRADJ 8 [facility] PRODUCTS INC INC D-DIMER QUAL/SEMI SYLWIA CREATINE 65846 ROSS HAWKINS KINASE 8 [facility] TOTAL INC INC BASIC 20710 ROSS HAWKINS METABOLIC 8 [facility] PANEL INC INC CALCIUM TOTAL ECG 89020 ROSS HAWKINS ROUTINE 8 [facility] ECG INC INC W/LEAST 12 LDS TRCG ONLY W/O I&R CREATINE 02464 ROSS HAWKINS KINASE MB 8 [facility] FRACTION INC INC ONLY BLOOD 93911 ROSS HAWKINS COUNT 8 [facility] COMPLETE INC INC AUTO&AUTO DIFRNTL WBC RADIOLOGI 57544 [place] ePrla GALLO EXAM 8 MEDICAL CIRA CHEST 2 IMAGING VIEWS ASSOCIATE FRONTAL&L S ATERAL ECG 13919 ROSS SPARROWSON, ROUTINE 8 [facility] W/LEAST PROF SERV 12 LDS I&[place] [address] ROSS HAWKINS TROPONIN 8 [facility] QUANTITAT INC INC CLAUDE IV NFUS 35780 ROSS HAWKINS THER 8 [facility] PROPH/DX INC INC EA HR ENTEROLSS 81716 RAO OBRIENJULIOCESAR FENTON 8 JR, JR, INTSTINAL ROSARIO F ROSARIO F ADHESION SPX BLOOD 57094 ROSS HAWKINS COUNT 8 [facility] COMPLETE INC INC AUTO&AUTO DIFRNTL WBC ANESTHESI 29757 [facility] SM[facility] 8 ANESTH ROHAN L [facility] A[facility] W/LAPS NOS ECG 91830 ROSS HAWKINS ROUTINE 8 [facility] ECG INC INC W/LEAST 12 LDS TRCG ONLY W/O I&R IV NFS 76694 ROSS HAWKINS THER 8 [facility] PROPH/DX INC INC 1ST >1 HR BASIC 54918 ROSS HAWKINS METABOLIC 8 [facility] PANEL INC INC CALCIUM TOTAL LAPAROSCO 67956 ROSS HAWKINS PY 8 [facility] ENTEROLYS INC INC IS SEPARATE PROCEDURE THER 07363 ROSS HAWKINS PROPH/DX 8 [facility] NJX EA INC INC SEQL IV PUSH SBST/DRUG INJECTION J2405 ROSS HAWKINS 8 [facility] ONDANSETR INC INC ON HCL PER 1 MG INJECTION J0970 Susannah GRANT MD ESTRADIOL VALERATE UP TO 40 MG COMPUTER- 01199 [place] CIRO MCCURDY 8 [facility]ICAL [place] P DETECTION IMAGING ASSOCIATE SCREENING S MAMMOGRAP HY SCREENING 53249 [place] Susannah MCCURDY MEDICAL [place] P MAMMOGRAP IMAGING HY ASSOCIATE BILATERAL S INJECTION J0970 Susannah GRANT MD ESTRADIOL VALERATE UP TO 40 [place]FS [address]4798 ROSS HAWKINS THER 8 [facility] PROPH/DX INC INC 1ST >1 HR BASIC 16662 ROSS HAWKINS METABOLIC 8 [facility] PANEL INC INC CALCIUM TOTAL BLOOD 10601 [facility] COUNT 8 [facility] COMPLETE INC INC AUTO&AUTO DIFRNTL WBC ECHO 68618 [facility] HAWKINS TRANSTHOR 8 [facility] AC R-T 2D INC INC W/WO M-MODE REC COMP DOP 54847 ROS[facility] HAWKINS ECHOCARD 8 [facility] COLOR INC INC FLOW VELOCITY MAPPING INJECTION J0970 BRIJESH LIANG, 8 AZUL [place] ESTRADIOL VALERATE UP TO 40 MG DOPPLER 56730 ROS[facility] HAWKINS ECHOCARD 8 [facility] PULSE INC INC WAVE W/SPECTRA L DISPLAY RADEX 55495 ROBERT HARRINGTON 8 [facility]ICAL [place] INTESTINE IMAGING ASSOCIATE W/MULTIPL S E SERIAL IMAGES EXTERNAL 05286 ROSS HAWKINS ECG 8 [facility] SCANNING INC INC ANALYSIS REPORT XTRNL ECG 83180 ROSS HAWKINS & 48 HR 8 [facility] RECORDING INC INC INJECTION J1040 PETRA LAMBERT, 8 XAVI R XAVI [place] METHYLPRE DNISOLONE ACETATE 80 MG OPHTHALMO 58232 TERENCE PRATT, FAUSTINOY 8 PARI YAÑEZ EXTENDED RETINAL DRAWING I&R 1ST CREATININ 78292 [facility] E BLOOD [address] [place] [address] CHLORIDE 75531 [facility] BLD [address] [place] [address] INJECTION 88534 [facility] CARDIAC [address] [place] [address] CATHJ L VENTR/L ATR ANGIOGRAP H INJECTION J3010 [facility] FENTANYL [address] [place] [address] CITRATE 0.1 MG BLOOD 49552 [facility] COUNT [address] [place] [address] PLATELET AUTOMATED I SI&R 64210 [facility]/MAX PX [address] [place] [address] DURING C-CATHJ PULM&/OR SELECT I SI&R 31478 [facility]/MAX PX [address] [place] [address] DURING C-CATHJ VENTR&/[place] [address] [facility] C-[address] F/SLCTV C ANGRPH L HRT 17124 [facility] CATHETER[address] ZATION RETROGRAD E BRACHIAL PERQ POTASSIUM [address] PLASMA/WH OLE BLOOD INJECTION J2[address] [place] HCL PER 1 MG SODIUM [address] PLASMA OR WHOLE BLOOD GLUCOSE 11807 [facility] QUANTITAT [address] [place] [address] CLAUDE BLOOD XCPT REAGENT STRIP BLOOD 78065 [facility] COUNT [address] [place] [address] [place] [address] [facility] UREA [address] [place] [address] NITROGEN QUANTITAT CLAUDE COLLECTIO 85196 [facility] N VENOUS [address] [place] [address] BLOOD VENIPUNCT URE LOCM Q9967 [facility] [phone] [place] [address] MG/ML IODINE CONCENTRA TION PER ML INTRDUCR/ C1894 [facility] SHEATH [address] [place] [address] NOT GUID INTRACARD EP NON-LASR INJECTION J0970 BRIJESH LIANG, 8 AZUL [place] ESTRADIOL VALERATE UP TO 40 MG RADEX 22194 [facility] ABDOMEN 1 8 [facility] INC ANTEROPOS TERIOR VIEW RADEX 33242 [place] KAZ, ABDOMEN 8 [facility] COMPL IMAGING W/DCBTS&/ ASSOCIATE ERC VIEWS S INJECTION J0970 BRIJESH [place] 8 AZUL LIANG MD ESTRADIOL VALERATE UP TO 40 MG SIMPLE 72947 BRIJESH [place] UROFLOMET 8 AZUL LIANG MD RY BLADDER 69462 BRIJESH [place] PRESSURE 8 AZUL LIANG MD MEASUREME NT DURING FILLING ANES 45668 [facility] LOWER 8 ANESTH INTESTINE ANESTHESI OF THE [facility] [place] [address] PATHOLOGY PATHOLOGY SURG 8 & & PATHOLOGY CYTOLOGY CYTOLOGY LAB LAB GROSS&MATY ROSCOPIC EXAM COLSC FLX 65679 [facility] W/RMVL 8 [facility] OF TUM[facility] INC INC POLYP LESION [place] [address] [facility] ALANIZON THER 8 [facility] PROPH/DX INC INC 1ST >1 HR CONTINUOU 96.71 Jan Elder MD INVASIVE MECHANICA L VENTILATI ON <96 CONSEC HRS INSERT 96.04 Elizabeth Pressley MD EAL TUBE Encounters Encounter Start End Date Code Location Performer Type Date OFFICE 13682 [facility] HERR OUTPATIEN 7 7 PHYSICIAN T VISIT S GROUP 10 [facility] ROSS - 7 7 [facility]IEN INC T OFFICE 59765 NEPHROLOG AGUDELO OUTPATIEN 7 7 Y T VISIT ASSOCIATE 25 S OF BERRY MINUTES OFFICE 26720 ROSS GILES OUTPATIEN 7 7 [facility] T VISIT HOSPITAL 10 P [facility] ROSS - 7 7 [facility] OUTPATIEN INC T OFFICE 79159 [place] OUTPATIEN 7 7 MEDICAL T VISIT SERV 25 FOUNDATIO MINUTES N OFFICE 48823 [facility] LAMISaida OUTPATIEN 7 7 [facility] T VISIT MEDICAL 15 G MINUTES OFFICE 40924 [facility] OUTPATIEN 7 7 PHYSICIAN T VISIT S GROUP 15 MINUTES OFFICE 70892 NEPHROLOG AAMIR OUTPATIEN 7 7 Y T VISIT ASSOCIATE 25 S OF BERRY MINUTES OFFICE 12712 [facility] BREEZY OUTPATIEN 6 6 PHYSICIAN T VISIT S GROUP 25 MINUTES OFFICE 56055 RODOLFO ZIMMERMAN OUTPATIEN 6 6 MEDICAL T NEW 20 SERV MINUTES FOUNDATIO N OFFICE 76031 NEPHROLOG TENA OUTPATIEN 6 6 Y T VISIT ASSOCIATE 25 S OF BERRY MINUTES OFFICE 17445 ROSS ACOSTAIMONE OUTPATIEN 6 6 [facility] MINUTES HOSPITAL ROSS - 6 6 [facility]EN INC [facility]PITAL ROSS - 6 6 [facility]IEN INC T OFFICE 82309 [facility] BREEZY OUTPATIEN 6 6 PHYSICIAN MATY T VISIT S GROUP 25 MINUTES EMERGENCY 38534 ROSS 6 6 [facility] T VISIT LIMITED/M INOR PROB HOSPITAL ROSS - 6 6 [facility] OUTPATIEN [facility] T OFFICE 43467 [facility] JACQUI BRUNSON OUTPATIEN 6 6 PHYSICIAN T VISIT S GROUP 15 MINUTES OFFICE 55926 [facility] DARRIN OUTPATIEN 6 6 PHYSICIAN EUG T VISIT S GROUP 25 MINUTES HOSPITAL ROSS - 6 6 [facility] ROSS - 6 6 [facility] OUTPATIEN [facility] EMERGENCY 28173 ROSS 6 6 [facility] T VISIT LOW/MODER SEVERITY HOSPITAL ROSS - 6 6 [facility] OUTPATIEN [facility] HOSPITAL ROSS - 6 6 [facility]EN [facility] HOSPITAL ROSS - 6 6 [facility]EN [facility] HOSPITAL ROSS [facility] 6 6 [facility]EN [facility] HOSPITAL ROSS - 6 6 [facility] HOSPITAL ROSS - 6 6 [facility] HOSPITAL ROSS - 6 6 [facility]PATIEN [facility] HOSPITAL ROSS - 6 6 [facility]PATIEN [facility] HOSPITAL ROSS - 6 6 [facility] OUTPATIEN [facility] T OFFICE 76145 [facility] AZEEM OUTPATIEN 6 6 PHYSICIAN OGHADDAM T VISIT S GROUP 15 MINUTES HOSPITAL ROSS - 6 6 [facility] OUTPATIEN [facility] HOSPITAL ROSS - 6 6 [facility] OUTPATIEN INC T EMERGENCY 58551 ROSS 6 6 [facility] DEPARTMEN INC T VISIT LOW/MODER SEVERITY OFFICE 94369 RAKESH BRYAN OUTPATIEN 6 6 Y OF CK JOSE T VISIT [place] 40 HOSPI MINUTES OFFICE 69679 ROSS LOWEKINS OUTPATIEN 6 6 [facility] 10 P MINUTES HOSPITAL ROSS - 6 6 [facility] OUTPATIEN INC T OFFICE 48149 [facility] BREEZY OUTPATIEN 6 6 PHYSICIAN MATY T VISIT S GROUP 15 MINUTES OFFICE 20538 NEPHROLOG AGUDELO OUTPATIEN 6 6 Y NABIL T VISIT ASSOCIATE 25 S OF BERRY MINUTES HOSPITAL ROSS - 6 6 [facility] OUTPATIEN INC T OFFICE 51429 [facility] JACQUI TOD OUTPATIEN 6 6 PHYSICIAN T VISIT S GROUP 10 MINUTES HOSPITAL ROSS - 6 6 [facility] OUTPATIEN INC T OFFICE 41222 [facility] HERR OUTPATIEN 6 6 PHYSICIAN FRANKIE T VISIT S GROUP 10 MINUTES OFFICE 01099 [facility] HARPEL OUTPATIEN 6 6 PHYSICIAN STEFANIE T VISIT S GROUP 15 MINUTES OFFICE 54677 [facility] BREEZY OUTPATIEN 6 6 PHYSICIAN MATY T VISIT S GROUP 15 MINUTES HOSPITAL ROSS - 6 6 [facility] OUTPATIEN INC T EMERGENCY 03709 ROSS 6 6 [facility] DEPARTMEN INC T VISIT MODERATE SEVERITY HOSPITAL ROSS - 6 6 [facility] OUTPATIEN INC T EMERGENCY 69263 ROSS 6 6 [facility] DEPARTMEN INC T VISIT LOW/MODER SEVERITY HOSPITAL ROSS - 6 6 [facility] OUTPATIEN INC T OFFICE 43944 [facility] JACQUI FELIXD OUTPATIEN 6 6 PHYSICIAN T VISIT S GROUP 10 MINUTES HOSPITAL ROSS - 6 6 [facility] OUTPATIEN INC T OFFICE 41348 [facility] JACQUELINE-M OUTPATIEN 6 6 PHYSICIAN OGHADDAM T NEW 45 S GROUP MINUTES HOSPITAL ROSS - 6 6 [facility] OUTPATIEN INC T EMERGENCY 70463 ROSS 6 6 [facility] INC T VISIT LOW/MODER SEVERITY OFFICE 57967 ROSS LOWEKINS OUTPATIEN 6 6 [facility] VISIT [facility] 15 P MINUTES HOSPITAL ROSS [facility] 6 6 [facility] OUTPATIEN [facility] T OFFICE 35056 ROSS LOWEKINS OUTPATIEN 6 6 [facility] VISIT [facility] 10 P MINUTES HOSPITAL CENTRAL - 6 6 [facility] OUTPATIEN HOSP T OFFICE 83151 NEPHROLOG AGUDELO OUTPATIEN 6 6 Y NABIL T VISIT ASSOCIATE 25 S OF BERRY MINUTES [facility] [place] [address] HOSPITAL OUTPATIEN T OFFICE 04195 [facility] HERR OUTPATIEN 6 6 PHYSICIAN FRANKIE T VISIT S GROUP 15 MINUTES OFFICE 61666 UATSDIN DON OUTPATIEN 6 6 HEALTH STEFANIE T NEW 45 MEDICAL MINUTES GROUP OFFICE 10157 ROSS GILES OUTPATIEN 6 6 [facility] 10 P MINUTES OFFICE 23011 [facility] HERR OUTPATIEN 6 6 PHYSICIAN FRANKIE T VISIT S GROUP 15 MINUTES OFFICE 83314 NEPHROLOG SHAIKH OUTPATIEN 6 6 Y THO T NEW 60 ASSOCIATE MINUTES S OF BERRY OFFICE 43872 [place] OUTPATIEN 6 6 MEDICAL JAM T VISIT SERV 15 FOUNDATIO MINUTES N EMERGENCY 95610 ROSS 6 6 [facility] DEPARTMEN [facility] T VISIT HIGH/URGE NT SEVERITY HOSPITAL ROSS - 6 6 [facility] OUTPATIEN [facility] T OFFICE 04711 ROSS GILES OUTPATIEN 6 6 [facility] VISIT [facility] 15 P MINUTES HOSPITAL ROSS - 6 6 [facility] OUTPATIEN [facility] T OFFICE 11285 BRIJESH LIANG OUTPATIEN 6 6 AZUL WATTS T VISIT 15 MINUTES HOSPITAL ROSS - 6 6 [facility] OUTPATIEN [facility] T OFFICE 79081 [facility] LAUREN NELSON 5 5 PHYSICIAN JENKINS T VISIT S GROUP SALTY SOTELO 15 MINUTES EMERGENCY 54417 ROSS 5 5 [facility] DEPARTMEN [facility] T VISIT LOW/MODER SEVERITY HOSPITAL ROSS - 5 5 [facility] OUTPATIEN [facility] ROSS - 5 5 [facility] OUTPATIEN [facility] HOSPITAL ROSS - 5 5 [facility] OUTPATIEN [facility] T OFFICE 56009 [facility] 5 5 [facility] VIS[facility] 15 G MINUTES [facility] [address] [facility] [address] IN[facility]IENT HOSPITAL ROSS - 5 5 [facility]PATIEN [facility] ROSS - 5 5 [facility] OUTPATIEN [facility] HOSPITAL ROSS - 5 5 [facility] OUTPATIEN [facility] ROSS - 5 5 [facility] OUTPATIEN [facility] ROSS - 5 5 [facility] OUTPATIEN [facility] T OFFICE 86272 HMJuliana AGUILAR OUTPATIEN 5 5 PHYSICIAN STONE T VISIT S GROUP SALTY SOTELO 15 MINUTES HOSPITAL ROSS - 5 5 [facility]PATIEN INC [facility] ROSS - 5 5 [facility]EN [facility] ROSS - 5 5 [facility] INC [facility] ROSS - 5 5 [facility] OUTPATIEN INC T OFFICE 03487 CARMENZA HERR OUTPATIEN 5 5 FRANKIE FRANKIE T VISIT 10 MINUTES EMERGENCY 39581 ROSS MERCEDES 5 5 [facility] T VISIT P MODERATE SEVERITY HOSPITAL ROSS - 5 5 [facility] OUTPATIEN INC EMERGENCY 08892 ROSS MERCEDES 5 5 [facility] T VISIT P MODERATE SEVERITY HOSPITAL ROSS - 5 5 [facility] OUTPATIEN INC [facility]PITAL ROSS - 4 4 [facility] ROSS - 4 4 [facility] ROSS - 4 4 [facility] OUTPATIEN INC T OFFICE 51328 [facility] OUTPATIEN 4 4 PHYSICIAN T VISIT S GROUP 25 MINUTES HOSPITAL ROSS - 4 4 [facility] OUTPATIEN INC [facility] ROSS - 4 4 [facility] OUTPATIEN INC T OFFICE 43236 BREEZY BREEZY OUTPATIEN 4 4 [facility] T NEW 20 HOSPITAL ROSS - 4 4 [facility] OUTPATIEN INC [facility]PITAL ROSS - 4 4 [facility] ROSS - 4 4 [facility] ROSS - 4 4 [facility] OUTPATIEN INC Emergency ERICH Mercedes MD (ER) 3 23:16 3 01:07 [facility] [place] [address] 3 [facility] IMP Ross Johnson MD (IN) 3 01:10 3 03:40 [facility] ROSS - 3 3 [facility] OUTPATIEN [facility] HOSPITAL ROSS [facility] 3 3 [facility] OUTPATIEN [facility] ROSS - 3 3 [facility] OUTPATIEN [facility] HOSPITAL ROSS - 3 3 [facility] OUTPATIEN [facility] Emergency ERICH Prasad (ER) 3 12:15 3 16:27 [facility] Emergency ERICH Mercedes MD (ER) 3 23:38 3 01:05 [facility] ROSS - 3 3 [facility] IMP (IN) 3 14:10 3 10:30 Inpatient IMP Ross McYurymie (IN) 3 07:00 3 14:10 [facility] Goran OFFICE 17310 MCKEMIE MCKEMIE OUTPATIEN 3 3 JR IRAIDA IRAIDA T VISIT 15 MINUTES Emergency ERICH MCKINNON (ER) 3 21:46 3 21:54 [facility] EMERGENCY 63195 ALFARIS ALFARIS 3 3 [facility] T VISIT [facility] ROSS - 3 3 [facility] OUTPATIEN [facility] T Emergency ERICH Pressley MD (ER) 3 01:47 3 06:27 [facility] Inpatient IMP Ross Castro (IN) 3 04:31 3 11:50 Aliya Francois [facility] ROSS - 3 3 [facility] INPATIENT INC OFFICE 73990 SUSYSTACEY SUSYEDGAREarl OUTPATIEN 3 3 JR IRAIDA [facility] 30 MINUTES [facility] ROSS - 3 3 [facility] OUTPATIEN INC OFFICE 55371 PETTEY PETTEY OUTPATIEN 3 3 [facility] 30 MINUTES OFFICE 13900 FALLUDAYO FALLUJI OUTPATIEN 3 3 [facility] T VISIT 25 MINUTES HOSPITAL ROSS - 2 2 [facility] OUTPATIEN [facility] ROSS - 2 2 [facility] ROSS - 2 2 [facility] OUTPATIEN [facility] T OFFICE 02512 GILES GILES OUTPATIEN 2 2 SONDRA SONDRA T VISIT 5 MINUTES OFFICE 96412 HARPERNELL OUTPATIEN 2 2 STEFANIE T VISIT 5 MINUTES HOSPITAL ROSS - 2 2 [facility] OUTPATIEN [facility] ROSS - 2 2 [facility] ROSS - 2 2 [facility] OUTPATIEN [facility] HOSPITAL ROSS - 2 2 [facility] OUTPATIEN INC T OFFICE 36444 BRIJESH LIANG OUTPATIEN 2 2 AZUL WATTS T VISIT 5 MINUTES OFFICE 36875 ROSS OUTPATIEN 2 2 [facility] T VISIT INC 25 MINUTES HOSPITAL ROSS - 2 2 [facility] OUTPATIEN INC T OFFICE 59153 BRIJESH LIANG OUTPATIEN 2 2 AZ[facility] WATTS T VISIT 5 MINUTES OFFICE 64516 BRIJESH ANDINOPEL OUTPATIEN 2 2 AZUL PALMER STEFANIE T VISIT 5 MINUTES HOSPITAL ROSS - 1 1 [facility] OUTPATIEN INC T OFFICE 14917 BRIJESH [place] HARPEL OUTPATIEN 1 1 AZUL PALMER STEFANIE T VISIT 5 MINUTES HOSPITAL ROSS - 1 1 [facility] OUTPATIEN INC T HOSPITAL ROSS - 1 1 [facility] OUTPATIEN INC T HOSPITAL ROSS - 1 1 [facility] OUTPATIEN INC T OFFICE 29652 BRIJESH [place] HARPEL OUTPATIEN 1 1 AZUL PALMER STEFANIE T VISIT 5 MINUTES OFFICE 53957 ROSS LOWEKINS OUTPATIEN 1 1 [facility] VISIT HOSPITAL 25 P MINUTES HOSPITAL ROSS - 1 1 [facility] OUTPATIEN INC T OFFICE 04216 ROSS OUTPATIEN 1 1 [facility] T VISIT INC 25 MINUTES HOSPITAL ROSS - 1 1 [facility] OUTPATIEN INC T OFFICE 64738 [facility] OUTPATIEN 1 1 PHYSICIAN MEME T VISIT S GROUP 25 MINUTES OFFICE 03919 BRIJESH ANDINOPEL OUTPATIEN 1 1 AZUL PALMER STEFANIE T VISIT 5 MINUTES OFFICE 56870 ROSS GILES OUTPATIEN 1 1 [facility] 25 P MINUTES OFFICE 54873 BRIJESH ANDINOPEL OUTPATIEN 1 1 AZUL PALMER STEFANIE T VISIT 5 MINUTES OFFICE 85555 BRIJESH KAISERL OUTPATIEN 1 1 AZUL PALMER STEFANIE T VISIT 5 MINUTES HOSPITAL ROSS - 1 1 [facility] OUTPATIEN INC T HOSPITAL ROSS - 1 1 [facility] OUTPATIEN [facility] OFFICE 32923 ROSS GILES OUTPATIEN 1 1 [facility] SONDRA VISIT HOSPITAL 25 P MINUTES HOSPITAL ROSS - 1 1 [facility] INPATIENT [facility] EMERGENCY 24085 LARISA MERCEDES DEPT 1 1 EMERGENCY MATY VISIT SERVICES HIGH SEVERITY& THREAT FUNCJ OFFICE 84602 Perla PHILLIPS OUTPATIEN 1 1 JACQUELINE GONZALEZ T VISIT PSC 25 MINUTES OFFICE 92680 BRIJESH LIANG OUTPATIEN 0 0 AZ[facility] WATTS T VISIT 25 MINUTES HOSPITAL ROSS - 0 0 [facility] OUTPATIEN [facility] ROSS - 0 0 [facility] ROSS - 0 0 [facility] ROSS [facility] 0 0 [facility] OUTPATIEN [facility] OFFICE 57013 BRIJESH LIANG OUTPATIEN 0 0 AZUL WATTS T VISIT 5 MINUTES HOSPITAL ROSS - 0 0 [facility] INPATIENT [facility] EMERGENCY 21824 LARISA SYKES DEPT 0 0 EMERGENCY VISIT SERVICES HIGH SEVERITY& THREAT FUNCJ OFFICE 06684 COMM[facility] GILES OUTPATIEN 0 0 LT SONDRA T VISIT UROLOGY 25 PSC MINUTES OFFICE 35189 BRIJESH LIANG OUTPATIEN 0 0 AZ[facility] WATTS T VISIT 5 MINUTES HOSPITAL ROSS - 0 0 [facility] OUTPATIEN [facility] T OFFICE 50051 COMMONWEA GILES OUTPATIEN 0 0 LTH SONDRA T VISIT UROLOGY 25 PSC MINUTES OFFICE 25929 [facility] GILES OUTPATIEN 0 0 LTH SONDRA T VISIT UROLOGY 25 PSC MINUTES OFFICE 90042 BRIJESH R HARPEL OUTPATIEN 0 0 HARPEL MD WATTS T VISIT 5 MINUTES HOSPITAL ROSS - 0 0 [facility] OUTPATIEN INC T OFFICE 43134 COMMONWEA GILES OUTPATIEN 0 0 LTH SONDRA T VISIT UROLOGY 25 PSC MINUTES OFFICE 88713 BRIJESH [place] HARPEL, OUTPATIEN 0 0 THUPEL MD COLEY R T VISIT 5 MINUTES OFFICE 76087 BRIJESH [place] HARPEL, OUTPATIEN 0 0 HARPEL MD COLEY R T VISIT 15 MINUTES OFFICE 77746 BRIJESHSUSAN LIANG OUTPATIEN 0 0 THUPEL MD WATTS T VISIT 5 MINUTES OFFICE 71357 COMMONWEA GILES, OUTPATIEN 0 0 [facility] F[facility] T NEW 30 UROLOGY MINUTES PSC OFFICE 00757 BRIJESH [place] HARPEL, OUTPATIEN 0 0 HARPEL MD COLEY R T VISIT 15 MINUTES OFFICE 34741 BRIJESH [place] HARPEL, OUTPATIEN 0 0 HARPEL MD COLEY R T VISIT 15 MINUTES OFFICE 05911 BRIJESH R HARPEL, OUTPATIEN 0 0 AWILDAL MD COLEY R T VISIT 5 MINUTES HOSPITAL ROSS - 0 0 [facility] OUTPATIEN INC T OFFICE 51272 BRIJESH [place] HARPEL, OUTPATIEN 0 0 AWILDAL MD COLEY R T VISIT 25 MINUTES HOSPITAL ROSS - 0 0 [facility] OUTPATIEN INC T OFFICE 99303 BRIJESH R HARPEL, OUTPATIEN 0 0 AZUL COLEY R T VISIT 25 MINUTES OFFICE 60703 BRIJESH ANDINOPEAdrian, OUTPATIEN 0 0 AZUL COLEY R T VISIT 5 MINUTES HOSPITAL ROSS - 0 0 [facility] OUTPATIEN INC T EMERGENCY 36658 ROSS 0 0 [facility] DEPARTMEN INC T VISIT MODERATE SEVERITY EMERGENCY 76000 LARISA MERCEDES, [address] [facility] T VISIT HIGH/URGE ASSOCIATE NT S SEVERITY EMERGENCY 13024 LARISA MERCEDES, [address] [facility] T VISIT HIGH/URGE ASSOCIATE NT S SEVERITY EMERGENCY 19301 ROSS 0 0 [facility] DEPARTMEN INC T VISIT LOW/MODER SEVERITY HOSPITAL ROSS - 0 0 [facility] OUTPATIEN INC T OFFICE 32170 LESLIE GRANT 9 9 [facility] [place] T VISIT 5 MINUTES OFFICE 48652 [facility] CON[facility] 9 9 , FLORECITAFLORECITA Campbell ION NEW/ESTAB PATIENT 60 MIN OFFICE 65496 LESLIE GRANT 9 9 AZ[facility] [place] T VISIT 40 MINUTES EMERGENCY 34868 LARISA CARRASCO, 9 9 EMERGENCY [facility] DEPARTMEN SERVICES T VISIT MODERATE ASSOCIATE SEVERITY S HOSPITAL ROSS - 9 9 [facility] OUTPATIEN INC T OFFICE 43333 LESLIE GRANT 9 9 [place] [place] T VISIT 5 MINUTES EMERGENCY 30295 ROSS 9 9 [facility] DEPARTMEN INC T VISIT LOW/MODER SEVERITY EMERGENCY 54331 LARISA TYLER, 9 9 EMERGENCY PARI DEPARTMEN SERVICES T VISIT HIGH/URGE ASSOCIATE NT S SEVERITY HOSPITAL ROSS - 9 9 [facility] OUTPATIEN INC T OFFICE 24699 [facility] LESLIE OROSCO 9 9 PHYSICIAN NADEEM [place] T VISIT S GROUP 25 MINUTES HOSPITAL ROSS - 9 9 [facility] OUTPATIEN INC T OFFICE 39251 LESLIE GRANT 9 9 [facility] [place] T VISIT 5 MINUTES HOSPITAL ROSS - 9 9 [facility] OUTPATIEN INC T HOSPITAL ROSS - 9 9 [facility] OUTPATIEN INC T EMERGENCY 68358 ROSS 9 9 [facility] DEPARTMEN INC T VISIT LOW/MODER SEVERITY OFFICE 15523 LESLIE BERTRAND 9 9 MEDICAL ANDER T VISIT SERV 15 FOUNDATIO MINUTES EMERGENCY 04390 LARISA AGUILAR, 9 9 EMERGENCY [facility] DEPARTMEN SERVICES O T VISIT HIGH/URGE ASSOCIATE NT S SEVERITY HOSPITAL ROSS - 9 9 [facility] OUTPATIEN INC T EMERGENCY 42291 ROSS 9 9 [facility] DEPARTMEN INC T VISIT HIGH/URGE NT SEVERITY OFFICE 15663 LESLIE GRANT 9 9 [facility] [place] T VISIT 5 MINUTES EMERGENCY 20401 LARISA MERCEDES, DEPT 9 9 EMERGENCY AL[place]A S VISIT SERVICES HIGH SEVERITY& ASSOCIATE THREAT S [facility] ROSS - 9 9 [facility] OUTPATIEN INC T OFFICE 06385 LESLIE GRANT 9 9 [facility] [place] T VISIT 5 MINUTES HOSPITAL ROSS - 9 9 [facility] OUTPATIEN INC T EMERGENCY 38352 ROSS 9 9 [facility] DEPARTMEN INC T VISIT LIMITED/M INOR PROB EMERGENCY 62173 LARISA RUTLEDGE 9 9 EMERGENCY [facility] DEPARTMEN SERVICES T VISIT MODERATE ASSOCIATE SEVERITY S OFFICE 57479 PETRA LAMBERT OUTPATIEN 9 9 DON R DON R T VISIT 15 MINUTES EMERGENCY 91121 LARISA MARROQUIN, [address] [facility] SERVICES T VISIT MODERATE ASSOCIATE SEVERITY S EMERGENCY 80575 ROSS 9 9 [facility] DEPARTMEN INC T VISIT LIMITED/M INOR PROB HOSPITAL ROSS - 9 9 [facility] OUTPATIEN INC T OFFICE 61842 RODOLFO RODRIGUEZ OUTPATIEN 9 9 FABIENNE WORTHINGTON T VISIT SERV 25 FOUNDATIO MINUTES OFFICE 29244 TERENCE PRATT OUTPATIEN 9 9 PARI YAÑEZ T VISIT 40 MINUTES OFFICE 24563 LESLIE GRANT 9 9 AZUL COLEY R T VISIT 5 MINUTES OFFICE 33189 JULIAN GRANTPATIDENNISE 9 9 AZUL COLEY R T VISIT 5 MINUTES OFFICE 20070 JULIAN GRANTPATIDENNISE 9 9 AZUL COLEY R T VISIT 5 MINUTES OFFICE 18677 PETRA LAMBERT OUTPATIEN 9 9 DON R DON R T VISIT 15 MINUTES OFFICE 43278 LESLIE GRANT 9 9 AZUL COLEY R T VISIT 5 MINUTES EMERGENCY 83497 ROSS 9 9 [facility] DEPARTMEN INC T VISIT MODERATE SEVERITY HOSPITAL ROSS - 9 9 [facility] OUTPATIEN INC T EMERGENCY 17418 JUSTINO MERCEDES, DEPT 9 9 NATIONAL TIMOTHY S VISIT CORPORATI HIGH ON SEVERITY& THREAT [facility] ROSS - 8 8 [facility] OUTPATIEN INC T OFFICE 81919 PETRA LAMBERT OUTPATIEN 8 8 DON R DON R T VISIT 15 MINUTES OFFICE 11733 PETRA LAMBERT OUTPATIEN 8 8 DON R DON R T VISIT 15 MINUTES OFFICE 57611 BRIJESH LIANG OUTPATIEN 8 8 AZUL PALMER BRIJESH R T VISIT 5 MINUTES OFFICE 38320 BRIJESH LIANG OUTPATIDENNISE 8 8 AZUL PALMER BRIJESH R T VISIT 25 MINUTES OFFICE 96972 BRIJESH LIANG OUTPATIEN 8 8 AZUL PALMER BRIJESH R T VISIT 5 MINUTES OFFICE 59623 LESLIE OTOOLE 8 8 MEDICAL CLYED T VISIT SERV 10 FOUNDATIO MINUTES OFFICE 23566 BRIJESH LIANG OUTPATIDENNISE 8 8 AZUL COLEY R T VISIT 25 MINUTES OFFICE 74765 PETRA LAMBERT OUTPATIEN 8 8 DON R DON R T VISIT 15 MINUTES HOSPITAL ROSS - 8 8 [facility] OUTPATIEN INC T HOSPITAL ROSS - 8 8 [facility] OUTPATIEN INC T OFFICE 18530 LESLIE LEMUS 8 8 MEDICAL GEN T NEW 30 SERV ER A MINUTES FOUNDATIO OFFICE 79665 LESLIE BERTRAND 8 8 MEDICAL ANDER T VISIT SERV 25 FOUNDATIO MINUTES OFFICE 21626 PETRA LAMBERT OUTPATIEN 8 8 DON R DON R T VISIT 15 MINUTES HOSPITAL ROSS - 8 8 [facility] OUTPATIEN INC T HOSPITAL ROSS - 8 8 [facility] OUTPATIEN INC T EMERGENCY 43479 ROSS 8 8 [facility] DEPARTMEN INC T VISIT HIGH/URGE NT SEVERITY OFFICE 31933 PETRA LAMBERT OUTPATIEN 8 8 DON R DON R T VISIT 15 MINUTES OFFICE 00909 LESLIE GRANT 8 8 [place] [place] T VISIT 40 MINUTES OFFICE 21866 PETRA LAMBERT OUTPATIEN 8 8 DON R DON R T VISIT 15 MINUTES HOSPITAL ROSS - 8 8 [facility] OUTPATIEN INC T EMERGENCY 57715 ROSS 8 8 [facility] DEPARTMEN INC T VISIT MODERATE SEVERITY HOSPITAL [facility] - 8 8 [facility] INC T OFFICE 99927 BRIJESH LIANG OUTPATIDENNISE 8 8 [place] T VISIT 5 MINUTES HOSPITAL ROSS - 8 8 [facility] INC T OFFICE 75174 [facility] JR JOHN, T VISIT ROSARIO Mary ROSARIO F 25 MINUTES OFFICE 51447 LESLIE GRANT 8 8 [place] T VISIT 5 MINUTES OFFICE 11745 PETRA LAMBERT OUTPATIEN 8 8 DON R DON R T VISIT 15 MINUTES OFFICE 67923 LESLIE BERTRAND 8 8 FABIENNE [place] T VISIT SERV 25 FOUNDATIO MINUTES EMERGENCY [id number] ROSS 8 8 [facility] DEPARTMEN INC T VISIT LOW/MODER SEVERITY HOSPITAL ROSS - 8 8 [facility] OUTPATIEN INC T HOSPITAL ROSS [facility] 8 8 [facility] OUTPATIEN INC T EMERGENCY [id number] ROSS 8 8 [facility] DEPARTMEN INC T VISIT HIGH/URGE NT SEVERITY OFFICE 81002 ALLRAN ALLRAN OUTPATIEN 8 8 JR JOHN, T VISIT ROSARIO Mary 15 MINUTES OFFICE 96446 ALLJULIOCESAR YEH [facility] 8 8 JR JOHN, T VISIT ROSARIO Mary 25 MINUTES OFFICE 61475 BRIJESH LIANG [facility] 8 8 [place] Hassan VISIT 5 MINUTES [facility] [place] - 8 8 [facility] [place] [facility] 8 8 [facility] [place] [facility] 8 8 [facility] T OFFICE 19482 TERENCE PRATT, CONSULTFRANCISCO 8 8 [facility] [facility] PATIENT 80 MIN OFFICE 05224 [facility] 8 8 DON R DON R T VISIT 15 MINUTES [facility] - 8 8 [facility] [place] [facility] 8 [facility] T OFFICE 19958 BRIJESH LIANG [facility] 8 8 [place] VISIT 25 MINUTES OFFICE 71225 [facility] 8 DON R DON R T VISIT 15 MINUTES [facility] [place] - 8 8 [facility]PATIEN [facility] T OFFICE 82306 R[facility]FO [facility]ODRIGUEZ [facility] 8 8 FABIENNE [place] T VISIT SERV 25 FOUNDATIO MINUTES
--- OUTSIDE RECORDS SUMMARY | 2017-04-05 22:18 | External Medical Summary Rpt ---
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 Goran [place] hematuria [facility] 244.9 272.4 275.42 305.1 Smoker [facility] 415.19 Pulmonary [place] embolism [facility] 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 [facility] 427.89 Ectopic [place] beats [facility] [id number] Acute [place] urinary [facility] tract Hospital infection 482.1 Pneumonia [place] due to [facility] [id number] 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 9% SO EMLANY TI ON CE 00 10 1 No [...] RO 40 -2 SE 96 0- Lo RI 10 20 ng DE 20 13 er [...] MC ti G ve TA BL ET RI 11 10 9 No RA 52 -1 [...] 25 0M G Ca ps ul e RI 11 10 0 No RA 52 -1 [...] TI ve -G RE LF LI Q ND 51 10 10 No OM 07 -1 [...] TI ve -G RE LF LI Q ND 51 10 3 No OM 07 -1 [...] TI ON DI 63 09 0 No ND 32 -2 IV 30 4- Lo AN [...] RO 40 -1 SE 96 8- Lo RI 10 20 ng DE 20 13 er [...] RO 40 -1 SE 96 7- Lo RI 10 20 ng DE 20 13 er [...] 40 ve 0 MG TA BL ET ND 51 09 2 No AV 07 -1 [...] RO 40 -1 SE 96 5- Lo RI 10 20 ng DE 20 13 er 4 40 Ac ti MG ve /4 ML AL RI 00 09 0 No DA 40 -1 [...] ti ML ve Sy ri ng e ND 00 09 3 No OM 64 -1 [...] 20 20 AR 10 10 10 MA RI 1 CY CH # AE L 05 S 43 7 50 02 02 00 15 5 CV 52 GA Ac 11 -1 -2 .0 S 21 IN ti 10 7- 6- 00 PH 96 EY ve 85 20 20 AR 10 10 10 MA RI 1 CY CH AE #5 L 43 [...] 40 59- complet (ESTIMA 013 ML/MIN ed PALU) 13:00 Sodium 137 136-145 complet SerPl-s 013 [...] SerPl-mCnc (08-21-2013 01:05) Tobramy 08-21-2 19.4 complet avery Ran 013 ug/mL ed 01:05 SerPl-m Cnc [...] CTIVE TIVE ed 08:55 (RAPID) Vancomycin Trough [facility] (08-18-2013 09:30) Vancomy 10-19-2 18.4 10.0-20 complet [...] 43 59- complet (ESTIMA 013 ML/MIN ed APUL) 01:30 Sodium 135 136-145 complet SerPl-s 013 [...] ed patency 21:04 Wrist a Tobramycin [facility] (07-17-2013 15:00) Tobramy 6.8 complet avery Ran 013 ug/mL ed 15:00 [facility] COMPREHENSIVE METABOLIC PANEL (07-17-2013 05:10) Glucose 157 [...] DOS Code Location Performer Comment CT THORAX 43455 EREN CLEO W/O 7 MEDICAL CONTRAST IMAGING MATERIAL ASS O2 CONC 1 E1390 DAREK RAMIREZRELL DEL PORT 7 HOME HOME 85%/>02 MEDICAL MEDICAL CONC AT [facility] FLW [facility]ATE PRTBLE E0431 DAREK OSWALD GASEOUS 7 HOME HOME O2 SYS MEDICAL MEDICAL RENT; EQUIPME EQUIPME FLWMTR HUMIDFR&M ASK LALA 78040 ROSS GILES POST-VOID 7 [facility] RESIDUAL P URINE&/BL ADDER CAP PRTBLE E0431 DAREK RAMIREZRELL GASEOUS 7 HOME HOME O2 SYS MEDICAL MEDICAL RENT; EQUIPME EQUIPME FLWMTR HUMIDFR&M ASK O2 CONC 1 E1390 DAREK RAMIREZRELL DEL PORT 7 HOME HOME 85%/>02 MEDICAL MEDICAL CONC AT EQUIPME EQUIPME [facility] FLW RATE ECHO 44687 ROSS HAWKINS TTHRC R-T 7 MEM HOS[facility]OS[facility] INC INC W/WOM-MOD E COMPL SPEC&COLR D ECG 57671 [facility] LAMIY ROUTINE 7 [facility] ECG [...] RENT; EQUIPME EQUIPME FLWMTR [place]FR&[place] [address] ROSS HAWKINS RETROPERI 6 [facility] H[facility]OS[facility] TONEAL INC [place] [address] [place] RETROPERI 6 MEDICAL TONEAL IMAGING REAL TIME ASS W/IMAGE LIMITED COLLECTIO 81299 ROS[facility] HAWKINS N VENOUS 6 [facility] BLOOD INC INC VENIPUNCT URE RENAL 35383 ROS[facility] HAWKINS FUNCTION 6 [facility] PANEL INC INC URNLS DIP 93786 [facility] HAWKINS 6 [facility] STICK/TAB INC INC [place] [address] ROSS HAWKINS ERYTHROPO 6 [facility] IETIN INC INC IRON 34709 ROSS HAWKINS BINDING 6 [facility] CAPACITY INC INC CULTURE 27463 ROS[facility] BACTERIAL 6 [facility]OS[facility] INC INC QUANTTATI VE COLONY COUNT URINE BLOOD 28899 [facility]WK[facility] COUNT 6 [facility] [place] [address] ROS[facility] HAWKINS IRON 6 [place] [address] ROS[facility] HAWKINS FERRITIN 6 [facility] INC INC RADEX 16165 ROSS HAWKINS RIBS UNI 6 MEM H[facility] W/POSTERO INC INC ANT CH MINIMUM 3 VIEWS RADEX 66803 [facility] RIBS 6 MEDICAL [place] IMAGING L 2 VIEWS ASS RADEX 42058 ROS[facility] HAWKINS RIBS UNI 6 MEM HOS[facility]OS[facility] W/POSTERO INC INC ANT CH MINIMUM 3 VIEWS O2 CONC 1 E1390 DAREKDONNA RAMIREZRELL DEL PORT 6 HOME HOME 85%/>02 MEDICAL MEDICAL CONC AT EQUIPME EQUIPME PRSC FLW RATE PRTBLE E0431 DAREK DAREK GASEOUS 6 HOME HOME O2 SYS MEDICAL MEDICAL RENT; EQUIPME EQUIPME FLWMTR HUMIDFR&M ASK RADIOLOGI 19306 [place] ALL C EXAM 6 MEDICAL CHEST 2 IMAGING VIEWS ASS FRONTAL&L ATERAL ECG 54507 ROSS ELDER ROUTINE 6 [facility] W/LEAST P 12 LDS I&R ONLY RADIOLOGI 60875 ROSS ROSS C EXAM 6 MEM HOS[facility]OS[facility] CHEST 2 INC INC VIEWS FRONTAL&L ATERAL PRESSURIZ 85852 ROSS ROSS ED/NONPRE 6 [facility] HOS[facility] HOS[facility] SSURIZED INC INC INHALATIO N TREATMENT O2 CONC 1 E1390 DAREK RAMIREZRELL DEL PORT 6 HOME HOME 85%/>02 MEDICAL MEDICAL CONC AT EQUIPME EQUIPME PRSC FLW RATE PRTBLE E0431 DAREK DAREK GASEOUS 6 HOME HOME O2 SYS MEDICAL MEDICAL RENT; EQUIPME EQUIPME FLWMTR HUMIDFR&M ASK THERAPEUT 36762 [facility] HAWKINS IC 6 MEM HOSP [facility]OS[facility] PROPHYLAC INC INC TIC/DX INJECTION SUBQ/IM THERAPEUT 60012 ROS[facility] HAWKINS IC 6 [facility] H[facility]OS[facility] PROPHYLAC INC INC TIC/DX INJECTION SUBQ/IM THERAPEUT 20780 [facility] HAWKINS IC 6 [facility] H[facility]OS[facility] PROPHYLAC INC INC TIC/DX INJECTION SUBQ/IM PHRM Q0513 YOUR YOUR DISPENSIN 6 PHARMACY PHARMACY [facility] [employer] INHALATIO N RX; PER 30 DAYS ADMN SET A7003 YOUR YOUR SM VOL 6 PHARMACY PHARMACY NONFILTR [facility] PNEUMAT NEBULIZR DISPBL ALBUTEROL J7620 YOUR YOUR TO 2.5 6 PHARMACY PHARMACY [employer] IPRATROPI UM BROM TO 0.5 MG THERAPEUT 35237 ROS[facility] HAWKINS IC 6 MEM HOS[facility]OS[facility] PROPHYLAC INC INC TIC/DX INJECTION SUBQ/IM THERAPEUT 84246 ROS[facility] HAWKINS IC 6 [facility] H[facility]OS[facility] PROPHYLAC INC INC TIC/DX INJECTION SUBQ/IM THERAPEUT 84557 ROSS HAWKINS IC 6 [facility] PROPHYLAC INC INC TIC/DX INJECTION SUBQ/IM THERAPEUT 35044 ROSS HAWKINS IC 6 [facility] PROPHYLAC INC INC TIC/DX INJECTION SUBQ/IM THERAPEUT 88505 ROSS HAWKINS IC 6 [facility] PROPHYLAC INC INC TIC/DX INJECTION SUBQ/IM THERAPEUT 70361 ROSS HAWKINS IC 6 [facility] PROPHYLAC INC INC TIC/DX INJECTION SUBQ/IM THERAPEUT 99794 ROS[facility] HAWKINS IC 6 [facility] PROPHYLAC INC INC TIC/[place] INJECTION SUBQ/[place] [address] ROSS HAWKINS ABDOMINAL 6 [facility] REAL INC [place] [address] [place] ALL ABDOMINAL 6 MEDICAL REAL IMAGING TIME ASS W/IMAGE LIMITED COLLECTIO 66318 [facility] HAWKINS N VENOUS 6 [facility] BLOOD INC INC VENIPUNCT URE PRTBLE E0431 DAREK MCGOWAN GASEOUS 6 HOME MAR O2 SYS MEDICAL RENT; [facility] HUMIDFR&M ASK O2 CONC 1 E1390 DAREK MCGOWAN DEL PORT 6 HOME MAR 85%/>02 MEDICAL CONC AT [facility] FLW RATE CALCIUM 93249 ROSS ROSS IONIZED 6 MEM HOSP [facility] HOS[facility] INC INC NERVE 00965 ROSS [facility]WKINS CONDUCTIO 6 [facility] H[facility] N STUDIES INC INC 5-6 STUDIES RENAL 95518 ROSS HAWKINS FUNCTION 6 [facility] H[facility] PANEL INC INC URNLS DIP 10805 ROS[facility] HAWKINS 6 [facility] H[facility] STICK/TAB INC INC LET REAGENT AUTO MICROSCOP Y AREO MASK A7015 YOUR YOUR USED W/ 6 PHARMACY PHARMACY [facility] ADMN SET A7003 YOUR YOUR SM VOL 6 PHARMACY PHARMACY [facility] PNEUMAT NEBULIZR DISPBL ALBUTEROL J7620 YOUR YOUR TO 2.5 6 PHARMACY PHARMACY [facility] IPRATROPI UM BROM TO 0.5 MG PHRM Q0513 YOUR YOUR DISPENSIN 6 PHARMACY PHARMACY [facility] INHALATIO N RX; PER 30 DAYS COLONOSCO 66378 ROSS ROSS PY 6 [facility] H[facility] W/BIOPSY INC INC SINGLE/MU LTIPLE ANES 02637 [facility] FEEBACK LOWER 6 ANESTH REE INTESTINE OF THE [place] [address] ROSS ROSS SURG 6 [facility] PATHOLOGY INC INC GROSS&MATY ROSCOPIC EXAM PRTBLE E0431 DAREK JAZMIN GASEOUS 6 HOME [place] O2 SYS MEDICAL RENT; EQUIPME FLWMTR HUMIDFR&M ASK O2 CONC 1 E1390 DAREK WU DEL PORT 6 HOME [place] 85%/>02 MEDICAL CONC AT EQUIPME PRS FLW RATE AREO MASK A7015 YOUR YOUR USED W/ 6 PHARMACY PHARMACY [facility] ADMN SET A7003 YOUR YOUR SM VOL 6 PHARMACY PHARMACY [facility] PNEUMAT NEBULIZR DISPBL ALBUTEROL J7620 YOUR YOUR TO 2.5 6 PHARMACY PHARMACY [facility] & [facility] IPRATROPI UM BROM TO 0.5 MG PHRM Q0513 YOUR YOUR DISPENSIN 6 PHARMACY PHARMACY [facility] INHALATIO N RX; PER 30 DAYS EXTERNAL 10657 ROS[facility] HAWKINS ECG 6 MEM HOSP [facility] SCANNING [place] [address] ROSS HAWKINS PARATHORM 6 [facility] H[facility] ONE INC INC 25 01225 ROSS HAWKINS HYDROXY 6 [facility] HOS[facility] INCLUDES INC INC FRACTIONS IF PERFORMED COMPREHEN 50515 ROSS ROSS SIVE 6 [facility] HOS[facility] METABOLIC INC INC PANEL XTRNL ECG 59000 ROSS HAWKINS & 48 HR 6 [facility] RECORDING INC INC COLLECTIO 80582 ROSS HAWKINS N VENOUS 6 [facility] BLOOD INC INC VENIPUNCT URE ECG 76776 ROS[facility] HAWKINS ROUTINE 6 [facility] ECG INC INC W/LEAST 12 LDS TRCG ONLY W/O I&R COMPREHEN 91813 ROSS HAWKINS SIVE 6 [facility] HOS[facility] [address] ROSS HAWKINS INFUSION 6 [facility] THERAPY/P INC INC ROPHYLAXI S /DX 1ST TO 1 HR ECG 71944 ROSS HAWKINS ROUTINE 6 [facility] ECG INC INC W/LEAST 12 LDS TRCG ONLY W/O I&[place] [address] ROSS HAWKINS TROPONIN 6 [facility] QUANTITAT INC INC CLAUDE ECG 81280 ROSS ELDER ROUTINE 6 [facility] W/LEAST P 12 LDS I&R ONLY RADIOLOGI 51254 ROSS HAWKINS C EXAM 6 [facility] CHEST 2 INC INC VIEWS FRONTAL&L ATERAL URNLS DIP 79015 ROSS HAWKINS 6 [facility] STICK/TAB INC INC LET REAGENT AUTO MICROSCOP Y O2 CONC 1 E1390 DAREK BELTRAN PORT 6 HOME MAR 85%/>02 MEDICAL CONC AT [facility] FLW RATE PRTBLE E0431 DAREK MCGOWAN GASEOUS 6 HOME MAR O2 SYS MEDICAL RENT; EQUIPME FLWMTR HUMIDFR&M ASK BLOOD 71932 ROS[facility] HAWKINS COUNT 6 [facility] COMPLETE INC INC AUTO&AUTO DIFRNTL WBC COLLECTIO 86094 ROS[facility] HAWKINS N VENOUS 6 [facility] H[facility] BLOOD INC INC VENIPUNCT URE ECG 46825 ROSS SPARROWSON ROUTINE 6 [facility] W/LEAST P 12 LDS I&R ONLY ECG 19591 ROSS HAWKINS ROUTINE 6 [facility] H[facility] ECG INC INC W/LEAST 12 LDS TRCG ONLY W/O I&R BASIC 19847 ROSS HAWKINS METABOLIC 6 [facility] PANEL INC INC CALCIUM TOTAL ADMN SET A7003 YOUR YOUR SM VOL 6 PHARMACY PHARMACY NONFILTR [employer] [facility] PNEUMAT NEBULIZR DISPBL ALBUTEROL J7620 YOUR YOUR TO 2.5 6 PHARMACY PHARMACY [employer] [facility] IPRATROPI UM BROM TO 0.5 MG PHRM Q0513 YOUR YOUR DISPENSIN 6 PHARMACY PHARMACY [employer] [facility] INHALATIO N RX; PER 30 DAYS PRESSURIZ 25535 ROSS HAWKINS ED/NONPRE 6 [facility] SSURIZED INC INC INHALATIO N TREATMENT NONINVASI 83176 ROSS HAWKINS VE 6 [facility] EAR/PULSE INC INC OXIMETRY SINGLE DETER RADIOLOGI 34671 ROSS HAWKINS C EXAM 6 [facility] CHEST 2 INC INC VIEWS FRONTAL&L ATERAL O2 CONC 1 E1390 DAREK HEDRICK DEL PORT 6 HOME LISA 85%/>02 MEDICAL CONC AT EQUIPME PRSC FLW RATE URETHROCY 38077 [place] ALL STOGRAPHY 6 MEDICAL VOIDING IMAGING RS&I ASS PRTBLE E0431 DAREK HEDRICK GASEOUS 6 HOME LISA O2 SYS MEDICAL RENT; EQUIPME FLWMTR HUMIDFR&M ASK LOCM Q9965 ROSS ROSS 100-199 6 MEM HOSP [facility]OS[facility] MG/ML INC INC IODINE CONCENTRA TION PER ML PHRM Q0513 YOUR YOUR DISPENSIN 6 PHARMACY PHARMACY [employer] [facility] INHALATIO N RX; PER 30 DAYS AREO MASK A7015 YOUR YOUR USED W/ 6 PHARMACY PHARMACY [facility] [employer] ALBUTEROL J7620 YOUR YOUR TO 2.5 6 PHARMACY PHARMACY [employer] [facility] IPRATROPI UM BROM TO 0.5 MG ADMN SET A7003 YOUR YOUR SM VOL 6 PHARMACY PHARMACY [facility] PNEUMAT NEBULIZR DISPBL O2 CONC 1 E1390 DAREK Ortiz'IRA DEL PORT 6 HOME MOL 85%/>02 MEDICAL CONC AT [facility] FLW RATE PRTBLE E0431 DAREK Alcantar'IRA GASEOUS 6 HOME MOL O2 SYS MEDICAL RENT; [facility] FLWMTR HUMIDFR&M ASK MRI 25807 [facility] SPINAL 6 [facility] THORACIC W/O CONTRAST MATRL MRI 77872 [facility] SPINAL 6 [facility] LUMBAR W/O CONTRAST MATERIAL NON-INVAS [address] PHYSIOLOG MEDICAL IC STD G EXTREMITY ART 2 LEVEL DUP-SCAN [address] ART/ARTL MEDICAL BPGS G COMPL BI STUDY DUP-SCAN [address] ART/ARTL BPGS COMPL BI STUDY NON-INVAS [address] PHYSIOLOG IC STD EXTREMITY ART 2 LEVEL DUP-SCAN 29023 NEPHROLOG NEEL PIMENTEL JG 6 Y THO ABDL/PEL/ ASSOCIATE SCROT&/RP S OF BERRY R ORGN COM O2 CONC 1 E1390 DAREK KERN DEL PORT 6 HOME SHANNA 85%/>02 MEDICAL CONC AT [facility] FLW RATE PRTBLE E0431 DAREK KERN GASEOUS 6 HOME SHANNA O2 SYS MEDICAL RENT; [facility] FLWMTR HUMIDFR&M ASK LALA 15344 ROSS GILES POST-VOID 6 [facility] RESIDUAL P URINE&/[place] [address] ROSS HAWKINS ABDOMEN & 6 MEM HOS[facility]OS[facility] PELVIS INC INC W/O CONTRAST MATERIAL CULTURE 63039 ROS[facility] HAWKINS BACTERIAL 6 MEM HOS[facility]OS[facility] BLOOD INC INC AEROBIC W/ID ISOLATES BLOOD 57261 ROS[facility] HAWKINS COUNT 6 [facility]OS[facility] COMPLETE INC INC AUTO&AUTO DIFRNTL WBC URNLS DIP 07859 ROSS DE SOUZA 6 [facility] LISY STICK/TAB INC LET REAGENT AUTO MICROSCOP Y CULTURE 35940 ROS[facility] HAWKINS BACTERIAL 6 [facility] H[facility] INC INC QUANTTATI VE COLONY COUNT URINE INJECTION J2405 ROSS VALLE 6 MEM HOSP ESOTERIC ONDANSETR INC LABORATOR [place] HCL I PER 1 [place] [address] ROSS HAWKINS LACTATE 6 [facility] HOS[facility] [place] [place] [address] ROSS HAWKINS INFUSION 6 MEM HOS[facility]OS[facility] THERAPY/P INC INC ROPHYLAXI S /DX 1ST TO 1 HR THERAPEUT 15049 ROSS HAWKINS IC 6 [facility] H[facility] INJECTION INC INC IV PUSH EACH NEW DRUG SLCTV 68169 [facility] CATH 6 COUNT INCLUDES THE [facility] CAROTID/I MEDICAL NNOM ART G ANGIO XTRCRANL ART PRTBLE E0431 DAREK [facility] GASEOUS 6 HOME IZA O2 SYS MEDICAL RENT; [facility] HUMID[facility]&M ASK O2 CONC 1 E1390 DAREK [facility] DEL PORT 6 HOME IZA 85%/>02 MEDICAL CONC AT EQUIPME PRS FLW RATE KIDNEY 20877 [place] ALL IMG 6 MEDICAL MORPHOLOG IMAGING Y ASS VASCULAR FLOW 1 W/RX URNLS DIP 03776 ROSS CHAN 6 [facility] LET RGNT P NON-AUTO W/O MICRSCP CALCIUM 34334 ROSS HAWKINS TOTAL 6 [facility] [place] [address] ROSS HAWKINS THYROID 6 [facility] STIMULATI [place] [address] ROSS HAWKINS FREE 6 [facility] THYROXINE INC INC COLLECTIO 10526 ROSS HAWKINS N VENOUS 6 [facility] BLOOD INC INC VENIPUNCT URE O2 CONC 1 E1390 DAREK [facility] DEL PORT 6 HOME HOME 85%/>02 MEDICAL MEDICAL CONC AT EQUIPME EQUIPNY PRS FLW RATE PRTBLE E0431 DAREK OSWALD GASEOUS 6 HOME HOME O2 SYS MEDICAL MEDICAL RENT; EQUIPME EQUIPME FLWMTR HUMIDFR&M ASK CTA ABDL 59115 [place] AORTA&BI 6 MEDICAL NOHEMI ILIOFEM IMAGING W/CONTRAS ASS T&POSTP CT THORAX 31583 ROS[facility] HAWKINS W/O 6 [facility] CONTRAST INC INC MATERIAL DUPLEX 03336 [place] SCAN 6 MEDICAL NOHEMI EXTRACRAN IMAGING [place] [address] ROS[facility] HAWKINS INFUSION 6 [facility] HOS[facility] THERAPY INC [place] [address] ROSS HAWKINS INFUSION 6 [facility] H[facility] THERAPY/P INC INC ROPHYLAXI S /DX 1ST TO 1 HR O2 CONC 1 E1390 DAREK KERN DEL PORT 6 HOME SHANNA 85%/>02 MEDICAL CONC AT [facility] FLW RATE PRTBLE E0431 DAREK ERLIN GASEOUS 6 HOME SHANNA O2 SYS MEDICAL RENT; [facility] FLWMTR HUMIDFR&M ASK BLOOD 72576 ROSSNIHARIKA HAWKINS COUNT 5 [facility] COMPLETE INC INC AUTO&AUTO DIFRNTL WBC COMPREHEN 37647 ROS[facility] HAWKINS SIVE 5 [facility] H[facility] METABOLIC INC INC PANEL RADIOLOGI 53922 [place] ALL C EXAM 5 MEDICAL CHEST 2 IMAGING VIEWS ASS FRONTAL&L ATERAL ALBUTEROL J7620 YOUR YOUR TO 2.5 5 PHARMACY PHARMACY [employer] IPRATROPI UM BROM TO 0.5 MG PHRM Q0513 YOUR YOUR DISPENSIN 5 PHARMACY PHARMACY [employer] INHALATIO N RX; PER 30 DAYS PRTBLE E0431 DAREKDONNA SEWELLK BRA GASEOUS 5 HOME O2 SYS MEDICAL RENT; EQUIPNY FLWMTR HUMIDFR&M ASK O2 CONC 1 E1390 DAREK SPRAGUE BRA DEL PORT 5 HOME 85%/>02 MEDICAL CONC AT [facility] FLW RATE RADIOLOGI 52711 ROSS HAWKINS C EXAM 5 [facility] CHEST 2 INC INC VIEWS FRONTAL&L ATERAL ECG 67249 [facility] ROUTINE 5 [facility] ECG MEDICAL MEDICAL W/LEAST G G [...] HOME 85%/>02 MEDICAL MEDICAL CONC AT EQUIPME EQUIPNY PRSC FLW RATE PRTBLE E0431 DAREK DAREK GASEOUS 5 HOME HOME O2 SYS MEDICAL MEDICAL RENT; EQUIPNY EQUIPNY FLWMTR HUMIDFR&M ASK NONCOVERE [id number] [facility] ITEM OR [address] [place] [address] HOSPITAL SERVICE NONCOVERE [id number] [facility] ITEM OR [address] [place] [address] HOSPITAL SERVICE EPHYS 09270 [facility] LAMMARIA L TAYLOR EVAL 5 [facility] W/ABLATIO MEDICAL N G SUPRAVENT ARRHYTHMI A RADEX 09074 [place] [facility] ESOPHAGUS 5 MEDICAL ELISSA IMAGING ASS HEPATOBIL 72122 [place] IARY SYST 5 MEDICAL NOHEMI IMAGING IMAGING INCLUDING ASS GALLBLADD ER PRTBLE E0431 DAREK O'IRA GASEOUS 5 HOME MOL O2 SYS MEDICAL RENT; EQUIPME FLWMTR HUMIDFR&M ASK O2 CONC 1 E1390 DAREK BenitesIRA DEL PORT 5 HOME MOL 85%/>02 MEDICAL CONC AT EQUIPNY PRSC FLW RATE XTRNL ECG 89663 ROSS ELDER 5 [facility] S RHYTHM P W/I&R UP TO 48 HRS XTRNL ECG 79798 ROSS HAWKINS & 48 HR 5 [facility] RECORDING INC INC ECG 36395 ROSS ELDER ROUTINE 5 [facility] W/LEAST P 12 LDS I&R ONLY ECHO 15083 ROSS HAWKINS TTHRC R-T 5 [facility] 2D INC INC W/WOM-MOD E COMPL SPEC&COLR D INSJ 44927 ROSS GILES NON-NDWEL 5 [facility] BLADDER P CATHETER RADIOLOGI 95171 [place] ALL C EXAM 5 MEDICAL CHEST 2 IMAGING VIEWS ASS FRONTAL&[place] [address] ROSS HAWKINS TRACT UPR 5 [facility] W/SM INT INC INC W/MULT SERIAL IMAGES THERAPEUT 50514 ROSS HAWKINS IC 5 [facility] INJECTION INC INC IV PUSH EACH NEW DRUG RADIOLOGI 13874 [facility] ALL C 5 MEDICAL EXAMINATI IMAGING ON CHEST ASS SINGLE VIEW FRONTAL ALBUTEROL J7620 YOUR YOUR TO 2.5 5 PHARMACY PHARMACY [employer] IPRATROPI UM BROM TO 0.5 MG PHRM Q0513 YOUR YOUR DISPENSIN 5 PHARMACY PHARMACY G [employer] INHALATIO N RX; PER 30 DAYS O2 CONC 1 E1390 DAREK OSWALD DEL PORT 5 HOME HOME 85%/>02 MEDICAL MEDICAL CONC AT EQUIPME EQUIPME PRSC FLW RATE PRTBLE E0431 DAREK DAREK GASEOUS 5 HOME HOME O2 SYS MEDICAL MEDICAL RENT; EQUIPME EQUIPME FLWMTR HUMIDFR&M ASK US BREAST 75858 ROSS HAWKINS UNI REAL 5 [facility] TIME INC INC WITH IMAGE COMPLETE US BREAST 22690 [facility] REAL 5 MEDICAL MEDICAL TIME IMAGING IMAGING WITH ASS ASS IMAGE LIMITED DIAGNOSTI G0206 ROSS HAWKINS C 5 [facility] MAMMOGRAP INC INC HY INCL CAD WHEN PERF; UNI COLONOSCO 26663 [facility] JACQUI TOD PY 5 PHYSICIAN W/BIOPSY S GROUP SINGLE/MU LTIPLE EGD 96418 [facility] JACQUI TOD TRANSORAL 5 PHYSICIAN BIOPSY S GROUP SINGLE/[place] [address] ROSS HAWKINS INFUSION 5 [facility] THERAPY INC INC PROPHYLAX IS/DX EA HOUR PRTBLE E0431 DAREK RAMIREZRELL GASEOUS 5 HOME HOME O2 SYS MEDICAL MEDICAL RENT; EQUIPME EQUIPME FLWMTR HUMIDFR&M ASK O2 CONC 1 E1390 DAREK [place] PORT 5 HOME HOME 85%/>02 MEDICAL MEDICAL CONC AT EQUIPME EQUIPME PRSC FLW RATE LALA 45496 ROSS GILES POST-VOID 5 [facility] RESIDUAL P URINE&/BL ADDER CAP PRTBLE E0431 DAREK OSWALD GASEOUS 5 HOME HOME O2 SYS MEDICAL MEDICAL RENT; EQUIPME EQUIPME FLWMTR HUMIDFR&M ASK O2 CONC 1 E1390 DAREK [place] 5 HOME HOME 85%/>02 MEDICAL MEDICAL CONC AT EQUIPME EQUIPME PRS FLW RATE POLYSOM 66026 LEE XIE MAR 6/>YRS 5 SLEEP 4/> NEUROSCIE ADDL NCES CENT RERE ATTND POLYSOM 63793 ROSS HAWKINS 6/>YRS 5 [facility] SLEEP 4/> INC INC ADDL RERE ATTND O2 CONC 1 E1390 DAREK [place] 5 HOME HOME 85%/>02 MEDICAL MEDICAL CONC AT EQUIPME EQUIPME PRSC FLW RATE PRTBLE E0431 DAREK OSWALD GASEOUS 5 HOME HOME O2 SYS MEDICAL MEDICAL RENT; EQUIPME EQUIPME FLWMTR HUMIDFR&[place] [address] [facility] CAR [place] ACTIVTD 5 [facility] ECG DWNLD MEDICAL W/R&I G </30 [...] 85%/>02 MEDICAL MEDICAL CONC AT EQUIPME EQUIPME [facility] FLW RATE THERAPEUT 08408 ROSS HAWKINS IC 5 [facility] PROPHYLAC INC INC TIC/DX INJECTION SUBQ/IM [facility]OLOGI 42526 [facility] L[facility] C EXAM 5 MEDICAL ELISSA CHEST 2 IMAGING VIEWS ASS FRONTAL&L ATERAL ECG 07523 ROSS VASQUEZ JR ROUTINE 5 [facility] W/LEAST P 12 LDS I&R ONLY O2 [...] PER SESS TO 2 PER DAY EXTERNAL 74699 ROSS HAWKINS ECG 4 [facility] SCANNING INC INC ANALYSIS REPORT NON-INVAS 92578 [place] CLEO CLAUDE 4 MEDICAL NOHEMI PHYSIOLOG IMAGING IC STUDY ASS EXTREMITY 3 LEVLS XTRNL ECG 63694 ROSS HAWKINS & 48 HR 4 [facility] RECORDING INC INC DUP-SCAN 25494 ROSS HAWKINS LXTR 4 [facility] ART/ARTL INC INC BPGS COMPL BI STUDY O2 CONC 1 E1390 DAREK [place] 4 HOME HOME 85%/>02 MEDICAL MEDICAL CONC AT EQUIPME EQUIPME [facility] FLW RATE PRTBLE E0431 DAREK DAREK GASEOUS 4 HOME HOME O2 SYS MEDICAL MEDICAL RENT; EQUIPME EQUIPME FLWMTR HUMIDFR&M ASK PHRM Q0513 YOUR YOUR DISPENSIN 4 PHARMACY PHARMACY G [employer] INHALATIO N RX; PER 30 DAYS ALBUTEROL J7620 YOUR YOUR TO 2.5 4 PHARMACY PHARMACY [employer] [facility] [employer] [facility] IPRATROPI UM BROM TO 0.[address] THORAX 41686 ROSS HAWKINS W/O 4 [facility] MEM [...] EQUIPME EQUIPME PRSC FLW RATE INJECTION J0696 [facility] 4 PHYSICIAN PHYSICIAN CEFTRIAXO S GROUP S GROUP NE SODIUM PER 250 MG THERAPEUT 97703 [facility] IC 4 PHYSICIAN PHYSICIAN PROPHYLAC S GROUP S GROUP TIC/DX INJECTION SUBQ/IM THERAPEUT 59146 [facility] IC 4 PHYSICIAN PHYSICIAN PROPHYLAC S GROUP S GROUP TIC/DX INJECTION SUBQ/IM INJECTION J0696 [facility] 4 PHYSICIAN PHYSICIAN CEFTRIAXO S GROUP S GROUP NE SODIUM PER 250 MG INJECTION J1040 [facility] 4 PHYSICIAN PHYSICIAN METHYLPRE S GROUP S GROUP DNISOLONE ACETATE 80 MG ECG 72312 ROSS VASQUEZ JR ROUTINE 4 [facility] W/LEAST P 12 LDS I&R ONLY PRTBLE E0431 DAREK OSWALD GASEOUS 4 HOME HOME O2 SYS MEDICAL MEDICAL RENT; EQUIPME EQUIPME FLWMTR HUMIDFR&M ASK O2 CONC 1 E1390 DAREK OSWALD [place] 4 HOME HOME 85%/>02 MEDICAL MEDICAL CONC AT EQUIPME EQUIPME PRSC FLW RATE RADIOLOGI 21240 BALDEV GALLO C EXAM 4 MEDICAL NOHEMI CHEST 2 IMAGING VIEWS ASS FRONTAL&L ATERAL DUP-SCAN 67841 ROSS HAWKINS XTR VEINS 4 [facility] INC INC UNILATERA L/LIMITED STUDY ECG 16779 ALFARIS ALFARIS ROUTINE 4 [facility] ECG W/LEAST 12 LDS I&R ONLY BRNCDILAT 58961 JERROD ELDER RSPSE 4 IZA IZA SPMTRY PRE&POST- BRNCDILAT ADMN GAS 70533 ROSS HAWKINS DILUT/WAS 4 [facility] HOUT LUNG INC INC VOL W/WO DISTRIB VENT&V GAS 50183 JERROD SPARROWSON DILUT/WAS 4 IZA IZA HOUT LUNG VOL W/[place] DISTRIB VENT&[place] [address] KYARASON BESSON DIFFUSING 4 IZA IZA CAPACITY APPL 09801 ROSS HAWKINS MODALITY 4 [facility] 1/> AREAS INC INC ULTRASOUN D EA 15 MIN APPL 93020 ROSS HAWKINS MODALITY 4 [facility] 1/> AREAS INC INC IONTOPHOR ESIS EA 15 MIN THERAPEUT 02179 ROSS HAWKINS IC PX 1/> 4 [facility] AREAS INC INC EACH 15 MIN EXERCISES E-STIM G0283 ROSS HAWKINS 1/> AREAS 4 [facility] OTH THAN INC INC WND CARE PART TX PLAN E-STIM G0283 ROSS HAWKINS 1/> AREAS 4 [facility] OTH THAN INC INC WND CARE PART TX PLAN APPL 18820 ROSS HAWKINS MODALITY 4 [facility] 1/> AREAS INC INC IONTOPHOR ESIS EA 15 MIN PHYSICAL 27994 ROSS HAWKINS THERAPY 4 [facility] EVALUATIO INC INC N APPL 78061 ROSS HAWKINS MODALITY 4 [facility] 1/> AREAS INC INC ULTRASOUN D EA 15 MIN ESOPHAGOS 73068 [facility] COPY 4 FRANKIE FRANKIE FLEXIBLE GUIDE WIRE DILATION LARGSC 65824 CARMEN[facility] HERR EXC 4 FRANKIE FRANKIE OVI&/STRP G CORDS/EPI GL MCRSCP/TL SCP ECG 27480 ROSS HAWKINS ROUTINE 4 [facility] ECG INC INC W/LEAST 12 LDS TRCG ONLY W/O I&R RADIOLOGI 74222 ROSS HAWKINS C EXAM 4 [facility] CHEST 2 INC INC VIEWS FRONTAL&L ATERAL RADEX 13162 ROSS HAWKINS ESOPHAGUS 4 [facility] MEM [...] LLC IPRATROPI UM BROM TO 0.5 MG [facility] G0463 ROSS HAWKINS OUTPATIEN 4 [facility] T CLIN INC INC VISIT ASSESS & MGMT PT RADIOLOGI 16798 CLEO GALLO C EXAM 3 NOHEMI NOHEMI CHEST 2 VIEWS FRONTAL&L ATERAL ECG 01752 BREEZY MERCEDES ROUTINE 3 MATY MATY ECG W/LEAST 12 LDS I&R ONLY NONCOVERE A9270 [facility] ITEM OR 3 [facility] HOSPITAL SERVICE RADIOLOGI 68840 ROSS HAWKINS C 3 [facility] EXAMINATI INC INC ON CHEST SINGLE VIEW FRONTAL ECG 42950 ROSS HAWKINS ROUTINE 3 [facility] ECG INC INC W/LEAST 12 LDS TRCG ONLY W/O I&R ECG 71443 BREEZY MERCEDES ROUTINE 3 MATY MATY ECG W/LEAST 12 LDS I&R ONLY RHYTHM 92918 ROSS HAWKINS ECG 1-3 3 [facility] LEADS INC INC TRACING ONLY W/O I&R PRESSURIZ 20683 ROSS HAWKINS ED/NONPRE 3 [facility] SSURIZED INC INC INHALATIO N TREATMENT THER 50148 ROSS HAWKINS PROPH/DX 3 [facility] NJX IV INC INC PUSH SINGLE/1S T SBST/DRUG PHRM Q0513 YOUR YOUR DISPENSIN 3 PHARMACY PHARMACY [facility] [employer] INHALATIO N RX; PER 30 DAYS ALBUTEROL J7620 YOUR YOUR TO 2.5 3 PHARMACY PHARMACY [employer] [facility] IPRATROPI UM BROM TO 0.5 MG DUP-SCAN 12133 ROSS HAWKINS LXTR 3 [facility] ART/ARTL INC INC BPGS COMPL BI STUDY SPMTRY 47990 ROSS ALANIZON W/VC 3 [facility] EXPIRATOR INC INC Y JG W/WO MXML VOL VNTJ RADEX 61604 ROSS HAWKINS SPINE 3 [facility] LUMBOSACR INC INC AL MINIMUM 4 VIEWS RADEX HIP 12989 ROSS HAWKINS 3 [facility] UNILATERA INC INC L COMPLETE MINIMUM [address] THORAX 53605 ROSS HAWKINS W/O 3 [facility] CONTRAST INC INC MATERIAL 3D 21079 CLEO CLEO RENDERING 3 NOHEMI NOHEMI W/INTERP& POSTPROC DIFF WORK STATION ECG 93626 OSMAR PRASAD ROUTINE 3 III IRAIDA III IRAIDA ECG W/LEAST 12 LDS I&R ONLY RADIOLOGI 38635 CLEO CLEO C 3 NOHEMI NOHEMI [place]AMINAT[place] [address] ROSS ALANIZON HEAD/BRAI 3 [facility] N W/O INC INC CONTRAST MATERIAL SBSQ 49718 [facility]ON [facility] NURSING 3 IZA IZA FACILITY CARE/DAY E/M STABLE 10 [place] [address]22 CLEO CLEO RETROPERI 3 NOHEMI NOHEMI TONEAL REAL TIME W/IMAGE COMPLETE SBSQ 98959 BESSON B[facility] 3 IZA IZA FACILITY CARE/DAY E/M STABLE 10 MIN RADIOLOGI 74821 CLEO CLEO C EXAM 3 NOHEMI NOHEMI CHEST 2 VIEWS FRONTAL&L ATERAL RADEX 65785 CLEO CLEO ABDOMEN 1 3 NOHEMI NOHEMI ANTEROPOS TERIOR VIEW SBSQ 02230 JERROD ELDER NURSING 3 IZA IZA FACILITY CARE/DAY E/M STABLE 10 MIN US 03444 CLEO CLEO ABDOMINAL 3 NOHEMI NOHEMI REAL TIME W/IMAGE DOCUMENTA TION US SOFT 37904 CLEO CLEO TISSUE 3 NOHEMI NOHEMI HEAD & NECK REAL TIME IMGE DOCM RADIOLOGI 28257 CLEO CLEO C EXAM 3 NOHEMI NOHEMI CHEST 2 VIEWS FRONTAL&L ATERAL ECHO 10325 MCKEMIE MCKEMIE TTHRC R-T 3 JR IRAIDA JR IRAIDA 2D W/WOM-MOD E COMPL SPEC&COLR D RADIOLOGI 27606 ROSS HAWKINS C EXAM 3 [facility] CHEST 2 INC INC VIEWS FRONTAL&L ATERAL ECG 96013 JERROD JERROD ROUTINE 3 IZA IZA ECG W/LEAST 12 LDS W/I&R RADIOLOGI 86128 CORRIE CORRIE C 3 RHO RHO EXAMINATI ON CHEST SINGLE VIEW FRONTAL RADIOLOGI 78000 SAMSON SAMSON C 3 TIFFANIE TIFFANIE EXAMINATI ON CHEST SINGLE VIEW FRONTAL RADIOLOGI 56045 CORRIE CORRIE C 3 RHO RHO EXAMINATI ON CHEST SINGLE VIEW FRONTAL INTUBATIO 56771 JERONIMO DON N 3 ENDOTRACH EAL EMERGENCY PROCEDURE ECHO 47012 MERLENE MUB MERLENE MUB TTHRC R-T 3 2D W/WOM-MOD E COMPL SPEC&COLR D ECG 49038 JERROD SPARROWYISEL ROUTINE 3 IZA IZA ECG W/LEAST 12 LDS I&R ONLY CT THORAX 51795 CLEO CLEO W/O 3 NOHEMI NOHEMI CONTRAST MATERIAL CRITICAL 31104 MOAMMAR MOAMMAR CARE 3 NASIMA NASIMA ILL/INJUR ED PATIENT INIT 30-74 MIN CRITICAL 04880 JERONIMO DON CARE 3 ILL/INJUR ED PATIENT ADDL 30 MIN ECHO 10151 ANJUR-REANNA ANJUR-REANNA TTHRC R-T 3 ALI GOMEZ ALI GOMEZ 2D W/WOM-MOD E COMPL SPEC&COLR D ECG 00429 ANJUR-REANNA ANJUR-REANNA ROUTINE 3 ALI GOMEZ ALI GOMEZ ECG W/LEAST 12 LDS I&[place] [address] HAJIBRAHI HAJIBRAHI ABDOMEN & 3 M SARAH M SARAH PELVIS W/O CONTRAST MATERIAL RADIOLOGI 73331 LURDES LURDES C 3 ANASTACIA ANASTACIA EXAMINATI ON CHEST SINGLE VIEW FRONTAL ECG 21847 ALBERT IZA ALBERT IZA ROUTINE 3 ECG W/LEAST 12 LDS I&R ONLY ECG 71494 DELIA DELIA ROUTINE 3 MATY MATY ECG W/LEAST 12 LDS I&R ONLY RADIOLOGI 39363 WESTERFIE WESTERFIE C EXAM 3 LD IV A LD IV A CHEST 2 VIEWS FRONTAL&L ATERAL ECG 36922 KYARASON BESSON ROUTINE 3 IZA IZA ECG W/LEAST 12 LDS I&R ONLY RADIOLOGI 60707 CLEO CLEO C 3 NOHEMI NOHEMI EXAMINATI ON CHEST SINGLE VIEW FRONTAL ECHO 53759 MCKEMIE MCKEMIE TTHRC R-T 3 JR IRAIDA KHOURY 2D W/WOM-MOD E COMPL SPEC&COLR D ECG 78343 MCKEMIE MCKEMIE ROUTINE 3 JR IRAIDA KHOURY ECG W/LEAST 12 LDS I&R ONLY RADIOLOGI 09937 CLEO CLEO C 3 NOHEMI NOHEMI EXAMINATI ON CHEST SINGLE VIEW FRONTAL INTUBATIO 41042 BREEZY CARBALLOEY N 3 MATY MATY ENDOTRACH EAL EMERGENCY PROCEDURE CRITICAL 70634 BREEZY [facility] CARE 3 MATY MATY ILL/INJUR ED PATIENT ADDL 30 MIN [facility] MATY MATY ILL/INJUR ED PATIENT INIT 30-74 MIN CONT 9671 ROSS HAWKINS INVASIVE 3 [facility] MECH VENT INC INC < 96 CONSECUTI VE HOURS INSERTION 9604 ROSS HAWKINS OF 3 [facility] ENDOTRACH INC INC EAL TUBE PHRM Q0513 YOUR YOUR DISPENSIN 3 PHARMACY PHARMACY [facility] [employer] [employer] INHALATIO N RX; PER 30 DAYS ALBUTEROL J7620 YOUR YOUR TO 2.5 3 PHARMACY PHARMACY [employer] [facility] IPRATROPI UM BROM TO 0.5 MG RADEX 74222 CLEO CLEO FOOT 3 NOHEMI NOHEMI COMPLETE MINIMUM 3 VIEWS INJECTION J1380 HARPEL HARPEL 3 STEFANIE STEFANIE ESTRADIOL VALERATE UP TO 10 MG THERAPEUT 28272 HARPEL HARPEL IC 3 STEFANIE STEFANIE PROPHYLAC TIC/DX INJECTION SUBQ/IM THERAPEUT 57415 HARPEL HARPEL IC 3 STEFANIE STEFANIE PROPHYLAC TIC/DX INJECTION SUBQ/IM INJECTION J1380 HARPEL HARPEL 3 STEFANIE STEFANIE ESTRADIOL VALERATE UP TO 10 MG ALBUTEROL J7620 YOUR YOUR TO 2.5 2 PHARMACY PHARMACY MG & IPRATROPI [place] [address] [place] [address] CLEO CLEO ANGIOGRAP 2 NOHEMI NOHEMI HY HEAD W/CONTRAS T/NONCONT RAST ANGIOGRAP 65798 FALLUJI FALLUJI HY 2 MEME MEME CAROTID CERVICAL BILATERAL RS&I ECG 65227 ROSS HAWKINS ROUTINE 2 [facility] ECG INC INC W/LEAST 12 LDS TRCG ONLY W/O I&R ANGIOGRAP 25257 FALLUJI FALLUJI HY 2 MMEE MEME CERVICOCE REBRAL CATHETER RS&I SLCTV 16709 FALLUJI FALLUJI CATHJ 1ST 2 MEME MEME 2ND ORD THRC/BRCH /[place] [address] LARISA TENORIOI 2 EMERGENCY EMERGENCY TONEAL SERVICES SERVICES REAL TIME W/IMAGE LIMITED COMPREHEN 91352 ROSS HAWKINS SIVE 2 [facility] METABOLIC INC INC PANEL COLLECTIO 39672 ROSS HAWKINS N VENOUS 2 [facility] BLOOD INC INC VENIPUNCT URE US SOFT 20444 CLEO CLEO TISSUE 2 NOHEMI NOHEMI HEAD & NECK REAL TIME IMGE DOC COMPUTER- 42963 ROSS HAWKINS AIDED 2 [facility] DETECTION INC INC SCREENING MAMMOGRAP HY RADEX 20821 ROSS HAWKINS ESOPHAGUS 2 [facility] INC INC RADIOLOGI 46771 ROSS HAWKINS C EXAM 2 [facility] CHEST 2 INC INC VIEWS FRONTAL&L ATERAL SCREENING G0202 ROSS HAWKINS 2 [facility] MAMMOGRAP INC INC HY HERNÁN INCL CAD WHEN PERFORMD BLOOD 65346 HARPEL HARPEL OCCULT 2 STEFANIE STEFANIE PEROXIDAS E ACTV QUAL FECES 1 DETER ADMN SET A7003 YOUR YOUR SM VOL 2 PHARMACY PHARMACY NONFILTR PNEUMAT NEBULIZR DISPBL ALBUTEROL J7620 YOUR YOUR TO 2.5 2 PHARMACY PHARMACY MG & IPRATROPI UM BROM TO 0.[address] THORAX 28863 CLEO CLEO 2 NOHEMI NOHEMI W/CONTRAS T MATERIAL CT THORAX 88857 ROSS ROSS W/O 2 [facility] CONTRAST INC INC MATERIAL 3D 72393 CLEO CLEO RENDERING 2 NOHEMI NOHEMI W/INTERP& POSTPROC DIFF WORK STATION ADMN SET A7003 YOUR YOUR SM VOL 2 PHARMACY PHARMACY NONFILTR PNEUMAT NEBULIZR DISPBL ALBUTEROL J7620 YOUR YOUR TO 2.5 2 PHARMACY PHARMACY MG & IPRATROPI UM BROM TO 0.5 MG THERAPEUT 07317 HARPEL HARPEL IC 2 STEFANIE STEFANIE PROPHYLAC TIC/DX INJECTION SUBQ/IM THERAPEUT 01787 HARPEL HARPEL IC 2 STEFANIE STEFANIE PROPHYLAC TIC/DX INJECTION SUBQ/IM THERAPEUT 17209 HARPEL HARPEL IC 2 STEFANIE STEFANIE PROPHYLAC TIC/DX INJECTION SUBQ/IM THERAPEUT 62048 HARPEL HARPEL IC 2 STEFANIE STEFANIE PROPHYLAC TIC/DX INJECTION SUBQ/IM CATH PLMT 43728 FALLUDAYO ALFORDUDAYO L HRT & 2 MEME MEME ARTS W/NJX & ANGIO IMG S&I ALBUTEROL J7620 YOUR YOUR TO 2.5 2 PHARMACY PHARMACY [facility] IPRATROPI UM BROM TO 0.5 MG THERAPEUT 98409 BRIJESH COLEY R IC 2 AZUL LIANG MD PROPHYLAC TIC/DX INJECTION SUBQ/IM SPMTRY 84854 ROSS HAWKINS W/VC 2 [facility] EXPIRATOR INC INC Y JG W/WO MXML VOL VNTJ E-STIM G0283 ROSS HAWKINS 1/> AREAS 2 [facility] OTH THAN INC INC WND CARE PART TX PLAN APPLICATI 91623 ROSS HAWKINS ON 2 [facility] MODALITY INC INC 1/> AREAS HOT/COLD PACKS APPL 35521 ROSS HAWKINS MODALITY 2 [facility] 1/> AREAS INC INC ULTRASOUN D EA 15 MIN THERAPEUT 89103 ROSS HAWKINS IC PX 1/> 2 [facility] AREAS INC INC EACH 15 MIN EXERCISES APPL 45311 ROSS HAWKINS MODALITY 2 [facility] 1/> AREAS INC INC ULTRASOUN D EA 15 MIN PHYSICAL 14708 ROSS HAWKINS THERAPY 2 [facility] EVALUATIO INC INC N APPLICATI 72584 ROSS HAWKINS ON 2 [facility] MODALITY INC INC 1/> AREAS HOT/COLD PACKS E-STIM G0283 ROSS HAWKINS 1/> AREAS 2 [facility]OS[facility] OTH THAN INC INC WND CARE PART TX PLAN ECHO 81896 ROSS HAWKINS TTHRC R-T 2 [facility] 2D INC INC W/WOM-MOD E COMPL SPEC&COLR D CT THORAX 38905 ROSS HAWKINS W/O 2 [facility] CONTRAST INC INC MATERIAL 3D 69119 ROSS HAWKINS RENDERING 2 [facility] INC INC W/INTERP& POSTPROC DIFF WORK STATION THERAPEUT 97030 AZUL LIANG IC 2 STEFANIE WATTS PROPHYLAC TIC/DX INJECTION SUBQ/IM DUPLEX 55441 ROSS HAWKINS SCAN 2 [facility] EXTRACRAN INC INC IAL ART COMPL BI STUDY XTRNL ECG 16751 JERROD ELDER 2 IZA IZA CONTINUOU S RHYTHM W/I&R UP TO 48 HRS EXTERNAL 02205 ROSS HAWKINS ECG 2 [facility] SCANNING INC INC ANALYSIS REPORT XTRNL ECG 35138 ROSS HAWKINS & 48 HR 2 [facility] RECORDING INC INC THERAPEUT 24900 BRIJESH [place] IC 2 AZUL LIANG MD PROPHYLAC TIC/DX INJECTION SUBQ/IM AREO MASK A7015 YOUR YOUR USED W/ 2 PHARMACY PHARMACY [employer] ALBUTEROL J7620 YOUR YOUR TO 2.5 2 PHARMACY PHARMACY [employer] IPRATROPI UM BROM TO 0.5 MG ADMN SET A7003 YOUR YOUR SM VOL 2 PHARMACY PHARMACY [employer] [facility] PNEUMAT NEBULIZR DISPBL INJECTION J1380 BRIJESH LIANG 2 AZUL WATTS ESTRADIOL VALERATE UP TO 10 MG INJECTION J1380 BRIJESH LIANG MD STEFANIE ESTRADIOL VALERATE UP TO [address] THORAX 13011 ROSS HAWKINS W/O 1 [facility] HOSP CONTRAST INC INC MATERIAL 3D 02439 [place] CLEO RENDERING 1 MEDICAL NOHEMI IMAGING W/INTERP& ASS POSTPROC DIFF WORK STATION 3D 98564 [place] CLEO RENDERING 1 MEDICAL NOHEMI W/INTERP IMAGING & ASS POSTPROCE [place]PERVIS[place] MRI 81406 [place] CLEO SPINAL 1 MEDICAL NOHEMI CANAL IMAGING LUMBAR ASS W/O CONTRAST MATERIAL ADMN SET A7003 YOUR YOUR SM VOL 1 PHARMACY PHARMACY [employer] PNEUMAT NEBULIZR DISPBL ALBUTEROL J7620 YOUR YOUR TO 2.5 1 PHARMACY PHARMACY [employer] IPRATROPI UM BROM TO 0.5 MG AREO MASK A7015 YOUR YOUR USED W/ 1 PHARMACY PHARMACY [employer] COMPUTER- 84266 [facility] AIDED 1 MEDICAL MEDICAL DETECTION IMAGING IMAGING DX ASS ASS MAMMOGRAP HY NEBULIZER E0570 DAREK OSWALD WITH 1 HOME HOME [facility]PRESSO MEDICAL MEDICAL R EQUIPME EQUIPME NEBULIZER E0570 DAREK OSWALD WITH 1 HOME HOME COMPRESSO MEDICAL MEDICAL R EQUIPME EQUIPME INSJ 52084 ROSS GILES NON-NDWEL 1 [facility] BLADDER P CATHETER 3D 42448 [place] CLEO RENDERING 1 MEDICAL NOHEMI IMAGING W/INTERP& ASS POSTPROC DIFF WORK STATION CT THORAX 12022 [place] CLEO W/O 1 MEDICAL NOHEMI CONTRAST IMAGING MATERIAL ASS INJECTION J1380 BRIJESH LIANG 1 AZUL PALMER STEFANIE ESTRADIOL VALERATE UP TO 10 MG ECG 05545 ROSS HAWKINS ROUTINE 1 [facility] ECG INC INC W/LEAST 12 LDS TRCG ONLY W/O I&R SLING 06916 ROSS HAWKINS OPERATION 1 [facility]OS[facility] STRESS INC INC INCONTINE NCE URNLS DIP 04629 ROSS HAWKINS 1 [facility]OS[facility] STICK/TAB INC INC LET REAGENT AUTO MICROSCOP Y ECG 69539 ROSS ELDER ROUTINE 1 [facility] W/LEAST P 12 LDS I&R ONLY ANES 81937 [facility] 1 ANESTH MARIJA TONEAL OF THE LWR ABD BLUE W/URINARY TRACT NOS REPAIR C1771 ROSS HAWKINS DEVICE 1 MEM [facility]OS[facility] URINARY INC INC INCONTINE NCE W/[place] [address] ROSS HAWKINS INFUSION 1 [facility] THERAPY INC INC PROPHYLAX IS/DX EA HOUR PRESSURIZ 90452 ROSS HAWKINS ED/NONPRE 1 MEM [facility] HOSP SSURIZED [place] [address] ROSS HAWKINS INFUSION 1 [facility] THERAPY/P INC INC ROPHYLAXI S /DX 1ST TO 1 HR NEBULIZER E0570 DAREK OSWALD WITH 1 HOME HOME [facility]PRESS[facility] MEDICAL MEDICAL R EQUIPME EQUIPME BLOOD 19438 ROSS HAWKINS COUNT 1 [facility] COMPLETE INC INC AUTO&AUTO DIFRNTL WBC COLLECTIO 13329 ROSS ROSS N VENOUS 1 [facility] BLOOD INC INC VENIPUNCT URE LIPID 49703 ROSS HAWKINS PANEL 1 [facility] INC INC COMPREHEN 82614 ROSS HAWKINS SIVE 1 [facility] METABOLIC INC INC PANEL BASIC 42189 ROSS ROSS METABOLIC 1 [facility] PANEL INC INC CALCIUM TOTAL ADMN SET A7003 YOUR YOUR SM VOL 1 PHARMACY PHARMACY [facility] PNEUMAT NEBULIZR DISPBL ALBUTEROL J7620 YOUR YOUR TO 2.5 1 PHARMACY PHARMACY [facility] & [facility] IPRATROPI UM BROM TO 0.5 MG PHRM Q0513 YOUR YOUR DISPENSIN 1 PHARMACY PHARMACY G FEE [facility] INHALATIO N RX; PER 30 DAYS INJECTION J1380 BRIJESH LIANG 1 AZUL WATTS ESTRADIOL VALERATE UP TO 10 MG NEBULIZER E0570 DAREK OSWALD WITH 1 HOME HOME [facility]ICAL R EQUIPME EQUIPME URNLS DIP 08694 ROSS HAWKINS 1 [facility] STICK/TAB INC INC LET RGNT NON-AUTO W/O MICRSCP NEBULIZER E0570 DAREK OSWALD WITH 1 HOME HOME [facility]ICAL [facility]ICAL R EQUIPME EQUIPME ADMN SET A7003 YOUR YOUR SM VOL 1 PHARMACY PHARMACY [facility] PNEUMAT NEBULIZR DISPBL AREO MASK A7015 YOUR YOUR USED W/ 1 PHARMACY PHARMACY [facility] COLLECTIO 42963 ROSS ROSS N VENOUS 1 [facility] BLOOD INC INC VENIPUNCT URE 25 86654 ROSS HAWKINS HYDROXY 1 [facility] INCLUDES INC INC FRACTIONS IF PERFORMED CALCIUM 57711 ROSS HAWKINS IONIZED 1 [facility] INC INC CALCIUM 48268 ROSS HAWKINS TOTAL 1 [place] [address] ROSS HAWKINS THYROID 1 MEM H[facility]OS[facility] STIMULATI [place] [address] ROSS HAWKINS THYROXINE 1 [facility]OS[facility] TOTAL INC INC NEBULIZER E0570 DAREK OSWALD WITH 1 HOME MED HOME MED COMPRESSO EQUIP. L EQUIP. L R INJECTION J1380 BRIJESH LIANG 1 AZUL WATTS ESTRADIOL VALERATE UP TO 10 MG ADMN SET A7003 YOUR YOUR SM VOL 1 PHARMACY PHARMACY NONFILTR [employer]ising [facility] PNEUMAT NEBULIZR DISPBL ALBUTEROL J7620 YOUR YOUR TO 2.5 1 PHARMACY PHARMACY [facility] IPRATROPI UM BROM TO 0.5 MG PHRM Q0513 YOUR YOUR DISPENSIN 1 PHARMACY PHARMACY G FEE [employer] [facility] INHALATIO N RX; PER 30 [...] ESTRADIOL VALERATE UP TO 10 MG CALCIUM 85119 ROSS HAWKINS TOTAL 1 [facility] INC INC CT THORAX 30096 [facility] 1 MEDICAL [facility]HE[facility] W/CONTRAS IMAGING T ASS MATERIAL CALCIUM 42441 ROSS HAWKINS IONIZED 1 [facility] INC CREATININ 95184 ROSS HAWKINS E BLOOD 1 [facility] [place] [address] ROSS HAWKINS UREA 1 [facility] NITROGEN INC INC QUANTITAT CLAUDE COLLECTIO 63118 ROSS HAWKINS N VENOUS 1 [facility] BLOOD INC INC VENIPUNCT URE 3D 95998 [facility] RENDERING 1 MEDICAL [facility] IMAGING W/INTERP& ASS POSTPROC DIFF WORK STATION NEBULIZER E0570 DAREK OSWALD WITH 1 HOME MED HOME MED COMPRESSO EQUIP. L EQUIP. L R INJECTION J1380 BRIJESH LIANG 1 [facility] ESTRADIOL VALERATE UP TO 10 MG THERAPEUT 12693 BRIJESH LIANG IC 1 [facility] PROPHYLAC TIC/DX INJECTION SUBQ/IM COLLECTIO 55605 ROSS HAWKINS N VENOUS 1 [facility] BLOOD INC INC VENIPUNCT URE CALCIUM 02249 ROSS HAWKINS TOTAL 1 [facility] [place] [address] ROSS HAWKINS FREE 1 [facility] [place] [address] ROSS HAWKINS THYROID 1 [facility] STIMULATI INC INC NG HORMONE TSH ALBUTEROL J7620 YOUR YOUR TO 2.5 1 PHARMACY PHARMACY [facility] [employer] IPRATROPI UM BROM TO 0.5 MG ADMN SET A7003 YOUR YOUR SM VOL 1 PHARMACY PHARMACY NONFILTR [employer] PNEUMAT NEBULIZR DISPBL PHRM Q0513 YOUR YOUR DISPENSIN 1 PHARMACY PHARMACY G FEE [employer] INHALATIO N RX; PER 30 DAYS NEBULIZER E0570 DAREK OSWALD WITH 1 HOME MED HOME MED COMPRESSO EQUIP. L EQUIP. L [facility] 22758 [facility] DISCHARGE 1 DON DON DAY MANAGEMEN T 30 MIN/< INITIAL [id number] [facility] DON DON CARE/DAY 50 MINUTES ECG 74363 ROSS ELDER ROUTINE 1 [facility] W/LEAST P 12 LDS I&R ONLY ECG 81757 LARISA MERCEDES ROUTINE 1 [facility] ECG SERVICES W/LEAST 12 LDS I&R ONLY THERAPEUT 11285 BRIJESH LIANG IC 1 [facility] PROPHYLAC TIC/DX INJECTION SUBQ/IM INJECTION J1380 BRIJESH LIANG 1 [facility] STEFANIE ESTRADIOL VALERATE UP TO 10 MG NEBULIZER E0570 DAREK OSWALD WITH 1 HOME MED HOME MED COMPRESSO EQUIP. L EQUIP. L R INJECTION J0970 BRIJESH LIANG 0 [facility] ESTRADIOL VALERATE UP TO 40 MG US BONE 48615 BRIJESH LIANG DENSITY 0 [facility] LALA & [place] [address] ROSS HAWKINS FREE 0 [facility] [place] [address] ROSS HAWKINS THYROID 0 [facility] STIMULATI INC INC NG HORMONE TSH CALCIUM 38942 ROSS ALANIZON IONIZED 0 [facility] INC INC COLLECTIO 90187 ROSS HAWKINS N VENOUS 0 [facility] BLOOD INC INC VENIPUNCT URE US SOFT 60659 BALDEV LAURAUTCHER TISSUE 0 [facility] HEAD & IMAGING NECK REAL ASS TIME IMGE DOCM NEBULIZER E0570 DAREK OSWALD WITH 0 HOME MED HOME MED COMPRESSO EQUIP. L EQUIP. L R CYTP C/V 18514 BIO BIO AUTO THIN 0 REFERNCE REFERNCE LYR LABORATOR LABORATOR PREPJ SCR IES IES MNL RESCR PHYS IADNA 96621 BIO BIO CHLAMYDIA 0 REFERNCE REFERNCE LABORATOR LABORATOR TRACHOMAT IES IES IS AMPLIFIED PROBE TQ COMPUTER- 22299 ROSS ALANIZON AIDED 0 [facility] DETECTION INC INC SCREENING MAMMOGRAP HY IADNA 60878 BIO BIO NEISSERIA 0 REFERNCE REFERNCE LABORATOR LABORATOR GONORRHOE IES IES AE AMPLIFIED PROBE TQ SCREENING G0202 ROSS HAWKINS 0 [facility] MAMMOGRAP INC INC HY HERNÁN INCL CAD WHEN PERFORMD CT THORAX 47085 ROSS HAWKINS W/O 0 [facility] CONTRAST INC INC MATERIAL BLOOD 65823 ROSS HAWKINS COUNT 0 [facility] COMPLETE INC INC AUTO&AUTO DIFRNTL WBC 3D 75119 ROSS HAWKINS RENDERING 0 [facility] INC INC W/INTERP& POSTPROC DIFF WORK STATION COLLECTIO 29561 ROSS HAWKINS N VENOUS 0 [facility] [place] [address] ROSS HAWKINS THYROID 0 [facility] STIMULATI [place] [address] ROSS HAWKINS FREE 0 [facility] THYROXINE INC INC DUPLEX 32029 ROSS ROSS SCAN 0 [facility] EXTRACRAN INC INC IAL ART COMPL BI STUDY CALCIUM 77365 ROSS HAWKINS TOTAL 0 [facility] INC INC ADMN SET A7003 DAREK [...] [place] 0.5 [place] [address] ROSS HAWKINS THYROID 0 [facility] STIMULATI INC INC NG HORMONE TSH COLLECTIO 00366 ROSS HAWKINS N VENOUS 0 [facility] BLOOD INC INC VENIPUNCT URE XTRNL ECG 79373 ROSS HAWKINS & 48 HR 0 [facility] RECORDING INC INC INJECTION J0970 BRIJESH LIANG 0 AZUL WATTS ESTRADIOL VALERATE UP TO 40 MG [facility] 26700 [facility] DISCHARGE 0 DON DON DAY MANAGEMEN T 30 MIN/< SBSQ 78823 [facility] 0 DON DON CARE/DAY 25 MINUTES SBSQ 97518 [facility] 0 DON DON CARE/DAY 25 MINUTES INITIAL 55371 [facility] 0 DON DON CARE/DAY 50 MINUTES RHYTHM 34003 LARISA SYKES ECG 1-3 0 [facility] INTERPRET ATION & REPRT ON ECG 01754 ROSS VASQUEZ DWI ROUTINE 0 [facility] W/LEAST P 12 LDS I&R ONLY INJECTION J0970 BRIJESH LIANG 0 AZUL WATTS ESTRADIOL VALERATE UP TO 40 MG N-INVAS 55906 ROSS HAWKINS PHYSIOLOG 0 [facility] IC STD INC INC LXTR ART COMPL BI NON-INVAS 90919 ROSS HAWKINS CLAUDE 0 [facility] PHYSIOLOG INC INC IC STUDY EXTREMITY 3 LEVLS ECHO 87620 ROSS HAWKINS TTHRC R-T 0 [facility] 2D INC INC W/WOM-MOD E COMPL SPEC&COLR D INJECTION J0970 BRIJESH LIANG 0 AZUL PALMER STEFANIE ESTRADIOL VALERATE UP TO 40 MG CYSTO 23075 [facility] CALIBRATI 0 LTH SONDRA ON DILAT UROLOGY URTL PSC STRIX/[place] [address] ROSS HAWKINS INFUSION 0 [facility] THERAPY/P INC INC ROPHYLAXI S /DX 1ST TO 1 HR DILAT 84305 ROSS HAWKINS FEMALE 0 [facility] URETHRA INC INC GENERAL/C NDJ SPINAL ANES ANES 68024 [facility] TRANSURET 0 ANESTH HRAL OF THE W/[place] [address] ROSS HAWKINS INFUSION 0 [facility] THERAPY INC INC PROPHYLAX IS/DX EA HOUR INJECTION J0970 BRIJESH LIANG, 0 [place] ESTRADIOL VALERATE UP TO 40 MG URINALYSI 42694 BRIJESH LIANG, S 0 [place] MICROSCOP IC ONLY INJECTION J0970 BRIJESH LIANG 0 AZUL PALMER STEFANIE ESTRADIOL VALERATE UP TO 40 MG COLONOSCO 17270 ePrla PHILLIPS PY FLX DX 0 JACQUELINE GONZALEZ W/ERIN PALMER PSC SPEC WHEN PFRMD URINALYSI 86918 BRIJESH LIANG, S 0 AZUL DAVIDSON IC ONLY INJECTION J0970 BRIJESH LIANG, 0 [place] ESTRADIOL VALERATE UP TO [address] THORAX 26361 BALDEV GALLO, W/O 0 MEDICAL CIRA CONTRAST IMAGING MATERIAL ASSOCIATE S 3D 04409 BALDEV CLEO, RENDERING 0 MEDICAL CIRA IMAGING W/INTERP& ASSOCIATE POSTPROC S DIFF WORK STATION CARBON 46231 RODOLFO COHEN MONOXIDE 0 [facility] DIFFW/CAP SERV FOUNDATIO BRNCDILAT 31094 ROSS HAWKINS RSPSE 0 [facility] SPMTRY INC INC PRE&POST- BRNCDILAT ADMN FUNCTIONA 41457 ROSS HAWKINS L 0 [facility] RESIDUAL INC INC CAPACITY OR RESIDUAL VOLUME DETER 57775 ROSS HAWKINS MALDISTRI 0 [facility] BJ OF INC INC INSPIRED GAS N WSHOT CURVE DETER 84193 ROSS HAWKINS AIRWY 0 [facility] CLOSING INC INC VOL 1 BRTH TSTS PLETHYSMO 79983 RODOLFO COHEN GRAPY TOT 0 [facility] BDY I&R SERV ONLY FOUNDATIO PULMONARY 83957 RODOLFO COHEN STRESS 0 [facility] TESTING SERV SIMPLE FOUNDATIO URINLS 84925 BRIJESH LIANG, DIP 0 [place] [place] STICK/TAB LET REAGNT NON-AUTO MICRSCPY SIMPLE 01068 BRIJESH LIANG UROFLOMET 0 [facility] [place] RY COMPLX 84548 BRIJESH LIANG CYSTOMETR 0 [facility] [place] O W/VOID PRESS & URETHRAL PROFIL URINLS 86512 BRIJESH LIANG, DIP 0 [place] [place] STICK/TAB LET REAGNT NON-AUTO MICRSCPY INJECTION J0970 BRIJESH LIANG, 0 [place] ESTRADIOL VALERATE UP TO 40 MG INJECTION J0970 BRIJESH LIANG, 0 [place] ESTRADIOL VALERATE UP TO 40 MG ECG 57249 ROSS HAWKINS ROUTINE 0 [facility] ECG INC INC W/LEAST 12 LDS TRCG ONLY W/O I&R ECG 31978 ROSS ELDER, ROUTINE 0 [facility] W/LEAST PROF SERV 12 LDS I&R ONLY RADIOLOGI 81081 Perla MOSLEY EXAM 0 MEDICAL CIRA CHEST 2 IMAGING VIEWS ASSOCIATE FRONTAL&L S ATERAL PRESSURIZ 94507 ROSS HAWKINS ED/NONPRE 0 [facility] SSURIZED INC INC INHALATIO N TREATMENT INJECTION J0970 Colt GRANT MD ESTRADIOL VALERATE UP TO 40 MG INJECTION J0970 Colt GRANT MD ESTRADIOL VALERATE UP TO 40 MG IADNA 57407 [facility] [place] TRACHOMAT IS AMPLIFIED PROBE TQ CYTP C/V 60072 [facility] AUTO THIN 9 [facility] LYR PREPJ SCR MNL RESCR PHYS IADNA 00005 [facility] [place] 9 [facility] GONORRHOE AE AMPLIFIED PROBE TQ COMPUTER- 68691 ROSS HAWKINS AIDED 9 [facility] DETECTION INC INC SCREENING MAMMOGRAP HY SCREENING 49500 ROSS HAWKINS 9 [facility] MAMMOGRAP INC INC HY BILATERAL INJECTION J0970 BRIJESH LIANG, Colt [place] ESTRADIOL VALERATE UP TO 40 MG INJECTION 62741 [facility] FALLUJI, CARDIAC 9 PHYSICIAN NADEEM RAMSEY L S GROUP VENTR/L ATR ANGIOGRAP H L HRT 52416 [facility] FALLUJI, CATHETERI 9 PHYSICIAN NADEEM DIANE S GROUP [place] [address] [facility] FALLUJI, C-CATHJ 9 PHYSICIAN NADEEM [place] F/SLCTV C S GROUP ANGRPH I SI&R 24558 [facility] FALLUJI, F/NJX PX 9 PHYSICIAN NADEEM [place] DURING S GROUP C-CATHJ VENTR&/AT R ANGRPH I SI&R 90559 [facility] FALLUJI, F/NJX PX 9 PHYSICIAN NADEEM [place] DURING S GROUP C-CATHJ PULM&/[place] [address] [facility] Perla OROSCO-CATHJ 9 PHYSICIAN NADEEM Mary/AORTOGR S GROUP APY ECG 58209 GLENIS BOB 9 LEE Duncan ECG CLINIC W/LEAST PSC 12 LDS I&R ONLY RADIOLOGI 91251 Perla MOSLEY EXAM 9 MEDICAL CIRA CHEST 2 IMAGING VIEWS ASSOCIATE FRONTAL&L S ATERAL RADIOLOGI 54941 Perla MOSLEY EXAM 9 MEDICAL CIRA CHEST 2 IMAGING VIEWS ASSOCIATE FRONTAL&L S ATERAL COLLECTIO 28432 ROSS HAWKINS N VENOUS 9 [facility] BLOOD INC INC VENIPUNCT URE BLOOD 63961 ROSS HAWKINS COUNT 9 [facility] COMPLETE INC INC AUTO&AUTO DIFRNTL WBC COMPREHEN 26198 ROSS HAWKINS SIVE 9 [facility] METABOLIC INC INC PANEL INJECTION J0970 BRIJESH LIANG, 9 [place] ESTRADIOL VALERATE UP TO 40 MG DOP 36367 ROSS HAWKINS ECHOCARD 9 [facility] COLOR INC INC FLOW VELOCITY MAPPING ECHO 55195 ROSS HAWKINS TRANSESOP 9 [facility] HAG R-T INC INC 2D W/PRB IMG ACQUISJ I&[place] [address] ROSS HAWKINS INFUSION 9 [facility] THERAPY INC [place] [address] ROSS HAWKINS INFUSION 9 [facility] THERAPY/P INC INC ROPHYLAXI S /DX 1ST TO [address] THORAX 19771 ROSS HAWKINS 9 [facility] W/CONTRAS INC INC T MATERIAL 3D 32037 ROSS HAWKINS RENDERING 9 [facility] INC INC W/INTERP& POSTPROC DIFF WORK STATION RADIOLOGI 47402 ROSS HAWKINS C EXAM 9 [facility] CHEST 2 INC INC VIEWS FRONTAL&L ATERAL RADIOLOGI 73801 Perla MOSLEY EXAM 9 MEDICAL CIRA CHEST 2 IMAGING VIEWS ASSOCIATE FRONTAL&L S ATERAL NATRIURET 48973 ROSS HAWKINS IC 9 [facility] PEPTIDE INC INC ECG 23528 ROSS BESSON, ROUTINE 9 [facility] W/LEAST PROF SERV 12 LDS I&[place] [address] ROSS HAWKINS TROPONIN 9 [facility] QUANTITAT INC INC CLAUDE ECHO 17585 [facility] FALLUDAYO, TTHRC R-T 9 PHYSICIAN NADEEM Simon GROUP W/WOM-MOD E COMPL SPEC&COLR D BLOOD 53759 ROSS HAWKINS COUNT 9 [facility] COMPLETE INC INC AUTO&AUTO DIFRNTL WBC ECG 41107 ROSS HAWKINS ROUTINE 9 [facility] ECG INC INC W/LEAST 12 LDS TRCG ONLY W/O I&R COMPREHEN 94240 ROSS HAWKINS SIVE 9 [facility] METABOLIC INC INC PANEL CREATINE 40403 ROSS HAWKINS KINASE MB 9 [facility] FRACTION INC INC ONLY CREATINE 11827 ROSS HAWKINS KINASE 9 [facility] TOTAL INC INC INJECTION J0970 Colt GRANT MD ESTRADIOL VALERATE UP TO 40 MG SEDIMENTA 16125 ROSS HAWKINS TION RATE 9 [facility] RBC INC INC NON-AUTOM ATED PRESSURIZ 00941 ROSS HAWKINS ED/NONPRE 9 [facility] SSURIZED INC INC INHALATIO N TREATMENT INJECTION J0970 Colt GRANT MD ESTRADIOL VALERATE UP TO 40 MG RADIOLOGI 48364 PETRA LAMBERT C 9 DON R DON R EXAMINATI ON CHEST SINGLE VIEW FRONTAL INJECTION J0970 Colt GRANT MD ESTRADIOL VALERATE UP TO 40 MG OPHTHALMO 69062 TERENCE PRATT, ANSELMO 9 PARI YAÑEZ EXTENDED [...] VALERATE UP TO [address] [place] [address] ROSS HAWKINS THYROID 9 [facility] STIMULATI INC INC NG HORMONE TSH BASIC 34826 ROSS HAWKINS METABOLIC 9 [facility] PANEL INC INC CALCIUM TOTAL URNLS DIP 42242 ROSS HAWKINS 9 [facility] STICK/TAB INC INC LET REAGENT AUTO MICROSCOP Y RADIOLOGI 13998 ROSS HAWKINS C EXAM 9 [facility] CHEST 2 INC INC VIEWS FRONTAL&L ATERAL BLOOD 08064 ROSS HAWKINS COUNT 9 [facility] COMPLETE INC INC AUTO&AUTO DIFRNTL WBC COLLECTIO 21952 ROSS HAWKINS N VENOUS 8 [facility] BLOOD INC INC VENIPUNCT URE LIPID 71190 ROSS HAWKINS PANEL 8 [facility] INC INC CALCIUM 30598 ROSS HAWKINS TOTAL 8 [facility] [place] [place] [address] ROSS HAWKINS THYROID 8 [facility] STIMULATI INC INC NG HORMONE TSH INJECTION J1040 PETRA LAMBERT, Susannah HURLEY R DON R METHYLPRE DNISOLONE ACETATE 80 MG INJECTION J0970 BRIJESH LIANG, 8 [place] ESTRADIOL VALERATE UP TO 40 MG INJECTION J0970 Susannah GRANT MD ESTRADIOL VALERATE UP TO 40 MG PUNCTURE 62256 ROSS HAWKINS ASPIRATIO 8 [facility] N CYST INC INC BREAST CYTP EVAL 23538 PATHOLOGY PATHOLOGY FINE 8 & & NEEDLE CYTOLOGY CYTOLOGY ASPIRATE LAB LAB INTERP & RE[place] [address] ROSS HAWKINS GUIDANCE 8 [facility] NEEDLE INC INC PLACEMENT IMG S&I US BREAST 66276 [facility] 8 MEDICAL [place] P TIME IMAGING W/IMAGE [place] [address] PATHOLOGY PATHOLOGY SURG 8 & & PATHOLOGY CYTOLOGY CYTOLOGY LAB LAB GROSS&MATY ROSCOPIC EXAM EGD 08558 RODOLFO JENNIFER, TRANSORAL 8 [facility] ANDER BIOPSY SERV SINGLE/MU FOUNDATIO LTIPLE IV NFUS 50274 ROSS HAWKINS THER 8 [facility] PROPH/DX INC INC EA HR SPECIAL 97585 PATHOLOGY PATHOLOGY STAIN 8 & & GROUP 1 CYTOLOGY CYTOLOGY MICROORGA LAB LAB NISMS I&R SPCL STN 55995 PATHOLOGY PATHOLOGY 2 I&R 8 & & EXCPT CYTOLOGY CYTOLOGY MICROORG/ LAB LAB ENZYME/IM CYT IV NFS 79287 ROSS HAWKINS THER 8 [facility] PROPH/DX INC INC 1ST >1 HR COMPREHEN 37892 ROSS HAWKINS SIVE 8 [facility] METABOLIC INC INC PANEL LIPID 50955 ROSS HAWKINS PANEL 8 [facility] INC INC URTL 73521 BRIJESH LIANG, PRESS 8 [place] PROFILE STDS BLADDER 33225 BRIJESH LIANG, PRESSURE 8 [place] MEASUREME NT DURING FILLING SIMPLE 97270 BRIJESH LIANG, UROFLOMET 8 [place] RY US BREAST 99357 [facility] 8 MEDICAL [place] P TIME IMAGING W/IMAGE ASSOCIATE DOCUMENTA S TION COLLECTIO 55685 ROSS HAWKINS N VENOUS 8 [facility] [place] [address] ROSS HAWKINS TROPONIN 8 [facility] QUANTITAT INC INC CLAUDE BLOOD 32892 ROSS HAWKINS COUNT 8 [facility] COMPLETE INC INC AUTO&AUTO DIFRNTL WBC RADIOLOGI 46053 ROSS HAWKINS C EXAM 8 [facility] CHEST 2 INC INC VIEWS FRONTAL&L ATERAL ECG 76632 ROSS HAWKINS ROUTINE 8 [facility] ECG INC INC W/LEAST 12 LDS TRCG ONLY W/O I&R BASIC 61331 ROSS HAWKINS METABOLIC 8 [facility] PANEL INC INC CALCIUM TOTAL CREATINE 79165 ROSS HAWKINS KINASE 8 [facility]OS[facility] TOTAL INC INC CREATINE 76112 ROSS HAWKINS KINASE MB 8 [facility] FRACTION INC INC ONLY INJ J0702 PETRA LAMBERT BETAMETHA 8 XAVI [place] SONE ACETATE & PHOSPHATE 3 MG IAADIADOO 38305 PETRA LAMBERT, Susannah DON R XAVI R STREPTOCO CCUS GROUP A INJECTION J0970 BRIJESH LIANG, 8 [place] ESTRADIOL VALERATE UP TO 40 MG SCR G0123 [facility] AMER[facility]ATH CYTOPATH 8 [facility] CERV/VAG INC INC SCR CYTOTECH UND PHYS SUPV FIBRIN 90854 ROSS HAWKINS DGRADJ 8 [facility] PRODUCTS INC INC D-DIMER QUAL/SEMI SYLWIA CREATINE 56430 ROSS HAWKINS KINASE 8 [facility] TOTAL INC INC BASIC 09635 ROSS HAWKINS METABOLIC 8 [facility] PANEL INC INC CALCIUM TOTAL ECG 27119 ROSS HAWKINS ROUTINE 8 [facility] ECG INC INC W/LEAST 12 LDS TRCG ONLY W/O I&R CREATINE 96237 ROSS HAWKINS KINASE MB 8 [facility] FRACTION INC INC ONLY BLOOD 14021 ROSS HAWKINS COUNT 8 [facility] COMPLETE INC INC AUTO&AUTO DIFRNTL WBC RADIOLOGI 97424 [place] Perla GALLO EXAM 8 MEDICAL CIRA CHEST 2 IMAGING VIEWS ASSOCIATE FRONTAL&L S ATERAL ECG 21437 ROSS SPARROWSON, ROUTINE 8 [facility] W/LEAST PROF SERV 12 LDS I&[place] [address] ROSS HAWKINS TROPONIN 8 [facility] QUANTITAT INC INC CLAUDE IV NFUS 17728 ROSS HAWKINS THER 8 [facility] PROPH/DX INC INC EA HR ENTEROLSS 40663 RAO OBRIENJULIOCESAR FENTON 8 JR, JR, INTSTINAL ROSARIO F ROSARIO F ADHESION SPX BLOOD 32771 ROSS HAWKINS COUNT 8 [facility] COMPLETE INC INC AUTO&AUTO DIFRNTL WBC ANESTHESI 38129 [facility] Chris SMITH 8 ANESTH ROHAN L [facility]TRAPERI [facility] L[facility] ABD W/LAPS NOS ECG 32887 ROSS HAWKINS ROUTINE 8 [facility] ECG INC INC W/LEAST 12 LDS TRCG ONLY W/O I&R IV NFS 58602 ROSS HAWKINS THER 8 [facility] PROPH/DX INC INC 1ST >1 HR BASIC 62710 ROSS HAWKINS METABOLIC 8 [facility] PANEL INC INC CALCIUM TOTAL LAPAROSCO 36881 ROSS HAWKINS PY 8 [facility] ENTEROLYS INC INC IS SEPARATE PROCEDURE THER 61400 ROSS HAWKINS PROPH/DX 8 [facility] NJX EA INC INC SEQL IV PUSH SBST/DRUG INJECTION J2405 ROSS HAWKINS 8 [facility] ONDANSETR INC INC ON HCL PER 1 MG INJECTION J0970 Susannah GRANT MD ESTRADIOL VALERATE UP TO 40 MG COMPUTER- 63880 [place] CIRO MCCURDY 8 MEDICAL [place] P DETECTION IMAGING ASSOCIATE SCREENING S MAMMOGRAP HY SCREENING 17323 [place] Susannah MCCURDY MEDICAL [place] P MAMMOGRAP IMAGING HY ASSOCIATE BILATERAL S INJECTION J0970 Susannah GRANT MD ESTRADIOL VALERATE UP TO 40 [place] [address] ROSS HAWKINS THER 8 [facility] PROPH/DX INC INC 1ST >1 HR BASIC 72896 ROSS HAWKINS METABOLIC 8 [facility] PANEL INC INC CALCIUM TOTAL BLOOD 85923 ROSS HAWKINS COUNT 8 [facility] COMPLETE INC INC AUTO&AUTO DIFRNTL WBC ECHO 65990 ROSS HAWKINS TRANSTHOR 8 [facility] AC R-T 2D INC INC W/WO M-MODE REC COMP DOP 15383 ROSS HAWKINS ECHOCARD 8 [facility] COLOR INC INC FLOW VELOCITY MAPPING INJECTION J0970 BRIJESH LIANG, 8 AZ[place] ESTRADIOL VALERATE UP TO 40 MG DOPPLER 65429 ROSS HAWKINS ECHOCARD 8 [facility] PULSE INC INC WAVE W/SPECTRA L DISPLAY RADEX 91134 ROBERT HARRINGTON 8 MEDICAL [place] Licea INTESTINE IMAGING ASSOCIATE W/MULTIPL S E SERIAL IMAGES EXTERNAL 95608 ROSS HAWKINS ECG 8 [facility] SCANNING INC INC ANALYSIS REPORT XTRNL ECG 55504 ROSS HAWKINS & 48 HR 8 [facility] RECORDING INC INC INJECTION J1040 PETRA LAMBERT, 8 XAVI R XAVI [place] METHYLPRE DNISOLONE ACETATE 80 MG OPHTHALMO 80463 TERENCE PRATT, FAUSTINOY 8 PARI YAÑEZ EXTENDED RETINAL DRAWING I&R 1ST CREATININ [address] [facility] E BLOOD [address] [place] [address] [facility] BLD [address] [place] [address] [facility] CARDIAC [address] [place] [address] CATHJ L VENTR/L ATR ANGIOGRAP H INJECTION J3010 [facility] FENTANYL [address] [place] [address] CITRATE 0.[address] [facility] COUNT [address] [place] [address] PLATELET AUTOMATED I SI&R 03257 [facility]/WIX PX [address] [place] [address] DURING C-CATHJ PULM&/OR SELECT I SI&R 68047 [facility]/WIX PX [address] [place] [address] DURING C-CATHJ VENTR&/[place] [address] [facility] C-[address] F/SLCTV C ANGRPH L HRT [address] [facility] [address]HE[address] ZATION RETROGRAD E BRACHIAL PERQ POTASSIUM [address] PLASMA/WH OLE BLOOD INJECTION J2250 [address] [place] HCL PER 1 MG SODIUM [address] PLASMA OR WHOLE BLOOD GLUCOSE 65581 [facility] QUANTITAT [address] [place] [address] CLAUDE BLOOD XCPT REAGENT STRIP BLOOD 34458 [facility] COUNT [address] [place] [address] [place] [address] [facility] UREA [address] [place] [address] NITROGEN QUANTITAT CLAUDE COLLECTIO 52200 [facility] N VENOUS [address] [place] [address] BLOOD VENIPUNCT URE LOCM Q9967 [facility] [phone] [place] [address] MG/ML IODINE CONCENTRA TION PER ML INTRDUCR/ C1894 [facility] SHEATH [address] [place] [address] NOT GUID INTRACARD EP NON-LASR INJECTION J0970 BRIJESH LIANG, 8 AZUL [place] ESTRADIOL VALERATE UP TO 40 MG RADEX 85559 ROSS HAWKINS ABDOMEN 1 8 [facility] INC INC ANTEROPOS TERIOR VIEW RADEX 99160 [place] KAZ, ABDOMEN 8 MEDICAL [place] Licea COMPL IMAGING W/DCBTS&/ ASSOCIATE ERC VIEWS S INJECTION J0970 BRIJESH [place] 8 AZUL LIANG MD ESTRADIOL VALERATE UP TO 40 MG SIMPLE 28611 BRIJESH [place] UROFLOMET 8 AZUL LIANG MD RY BLADDER 46291 BRIJESH [place] PRESSURE 8 AZUL LIANG MD MEASUREME NT DURING FILLING ANES 34690 [facility] LOWER 8 ANESTH INTESTINE ANESTHESI OF THE A OF THE [facility] [place] [address] PATHOLOGY PATHOLOGY SURG 8 & & PATHOLOGY CYTOLOGY CYTOLOGY LAB LAB GROSS&MATY ROSCOPIC EXAM COLSC FLX 35050 ROSS HAWKINS W/RMVL 8 [facility] OF TUMOR INC [place] [address] ROSS ALANIZON THER 8 [facility] PROPH/DX INC INC 1ST >1 HR CONTINUOU 96.71 Jan Elder MD INVASIVE MECHANICA L VENTILATI ON <96 CONSEC HRS INSERT 96.04 Elizabeth Pressley MD EAL TUBE Encounters Encounter Start End Date Code Location Performer Type Date OFFICE 94586 [facility] HERR OUTPATIEN 7 7 PHYSICIAN T VISIT S GROUP 10 [facility] ROSS - 7 7 [facility] OUTPATIEN INC T OFFICE 12972 NEPHROLOG AGUDELO OUTPATIEN 7 7 Y T VISIT ASSOCIATE 25 S OF BERRY MINUTES OFFICE 42523 ROSS GILES OUTPATIEN 7 7 [facility] T VISIT HOSPITAL 10 P [facility] ROSS - 7 7 [facility] OUTPATIEN INC T OFFICE 52253 [place] [facility] OUTPATIEN 7 7 MEDICAL T VISIT SERV 25 FOUNDATIO MINUTES N OFFICE 60133 [facility] LAMISaida OUTPATIEN 7 7 [facility] T VISIT MEDICAL 15 G MINUTES OFFICE 61395 [facility] OUTPATIEN 7 7 PHYSICIAN T VISIT S GROUP 15 MINUTES OFFICE 13608 NEPHROLOG AAMIR OUTPATIEN 7 7 Y T VISIT ASSOCIATE 25 S OF BERRY MINUTES OFFICE 60828 [facility] BREEZY OUTPATIEN 6 6 PHYSICIAN T VISIT S GROUP 25 MINUTES OFFICE 02106 [place] ZIMMERMAN OUTPATIEN 6 6 MEDICAL T NEW 20 SERV MINUTES FOUNDATIO N OFFICE 15944 NEPHROLOG TENA OUTPATIEN 6 6 Y T VISIT ASSOCIATE 25 S OF BERRY MINUTES OFFICE 43067 [facility]S ACOSTAIMONE OUTPATIEN 6 6 [facility] 20 HOSPITAL MINUTES HOSPITAL ROSS - 6 6 [facility] INC [facility]PITAL ROSS - 6 6 [facility] OUTPATIEN INC T OFFICE 09401 [facility] BREEZY OUTPATIEN 6 6 PHYSICIAN MATY T VISIT S GROUP 25 MINUTES EMERGENCY [id number] ROS[facility] 6 6 [facility] T VISIT LIMITED/M INOR PROB HOSPITAL ROSS - 6 6 [facility] OUTPATIEN [facility] T OFFICE 26356 [facility] JACQUI BRUNSON OUTPATIEN 6 6 PHYSICIAN T VISIT S GROUP 15 MINUTES OFFICE 34842 [facility] DARRIN OUTPATIEN 6 6 PHYSICIAN EUG T VISIT S GROUP 25 MINUTES HOSPITAL ROSS - [address] [facility] ROSS - 6 6 [facility] EMERGENCY 13775 ROSS 6 6 [facility] T VISIT [facility]OW/MODER SEVERITY HOSPITAL ROSS - 6 6 [facility]EN [facility] HOSPITAL ROSS - 6 6 [facility] ROSS - 6 6 [facility] ROSS - 6 6 [facility] ROSS - 6 6 [facility] ROSS - 6 6 [facility] ROSS - 6 6 [facility] ROSS - 6 6 [facility] ROSS [facility] 6 6 [facility] OUTPATIEN [facility] T OFFICE 07045 [facility] AZEEM OUTPATIEN 6 6 PHYSICIAN OGHADDAM T VISIT S GROUP 15 MINUTES HOSPITAL ROSS [facility] 6 6 [facility]PITAL ROSS - 6 6 [facility] OUTPATIEN INC T EMERGENCY 12730 ROSS 6 6 [facility] DEPARTMEN INC T VISIT LOW/MODER SEVERITY OFFICE 43609 RAKESH BRYAN OUTPATIEN 6 6 Y OF CK JOSE T VISIT [place] 40 HOSPI MINUTES OFFICE 51706 [facility] LOWEKINS OUTPATIEN 6 6 [facility] 10 P MINUTES HOSPITAL ROSS - 6 6 [facility] OUTPATIEN INC T OFFICE 83082 [facility] BREEZY OUTPATIEN 6 6 PHYSICIAN MATY T VISIT S GROUP 15 MINUTES OFFICE 91934 NEPHROLOG AGUDELO OUTPATIEN 6 6 Y NABIL T VISIT ASSOCIATE 25 S OF BERRY MINUTES HOSPITAL ROSS - 6 6 [facility] OUTPATIEN INC T OFFICE 42260 [facility] JACQUI TOD OUTPATIEN 6 6 PHYSICIAN T VISIT S GROUP 10 MINUTES HOSPITAL ROSS - 6 6 [facility] OUTPATIEN INC T OFFICE 00290 [facility] HERR OUTPATIEN 6 6 PHYSICIAN FRANKIE T VISIT S GROUP 10 MINUTES OFFICE 02075 [facility] HARPEL OUTPATIEN 6 6 PHYSICIAN STEFANIE T VISIT S GROUP 15 MINUTES OFFICE 58720 [facility] BREEZY OUTPATIEN 6 6 PHYSICIAN MATY T VISIT S GROUP 15 MINUTES HOSPITAL ROSS - 6 6 [facility] OUTPATIEN INC T EMERGENCY 87802 ROSS 6 6 [facility] DEPARTMEN INC T VISIT MODERATE SEVERITY HOSPITAL ROSS - 6 6 [facility] OUTPATIEN INC T EMERGENCY 65804 ROSS 6 6 [facility] DEPARTMEN INC T VISIT LOW/MODER SEVERITY HOSPITAL ROSS - 6 6 [facility] OUTPATIEN INC T OFFICE 84571 [facility] JACQUI FELIXD OUTPATIEN 6 6 PHYSICIAN T VISIT S GROUP 10 MINUTES HOSPITAL ROSS - 6 6 [facility] OUTPATIEN INC T OFFICE 84928 [facility] JACQUELINE-M OUTPATIEN 6 6 PHYSICIAN OGHADDAM T NEW 45 S GROUP MINUTES HOSPITAL ROSS - 6 6 [facility] OUTPATIEN INC T EMERGENCY 09753 ROSS 6 6 [facility] INC T VISIT LOW/MODER SEVERITY OFFICE 31412 [facility] LOWEKINS OUTPATIEN 6 6 [facility] VISIT [facility] 15 P MINUTES HOSPITAL ROSS - 6 6 [facility] OUTPATIEN [facility] T OFFICE 65122 ROSS LOWEKINS OUTPATIEN 6 6 [facility] VISIT [facility] 10 P MINUTES HOSPITAL CENTRAL - 6 6 LATTER[facility]DAY OUTPATIEN HOSP T OFFICE 08548 NEPHROLOG AGUDELO OUTPATIEN 6 6 Y NABIL T VISIT ASSOCIATE 25 S OF BERRY MINUTES [facility] [place] [address] HOSPITAL OUTPATIEN T OFFICE 22199 [facility] HERR OUTPATIEN 6 6 PHYSICIAN FRANKIE T VISIT S GROUP 15 MINUTES OFFICE 27062 LATTER-DAY DON OUTPATIEN 6 6 HEALTH STEFANIE T NEW 45 MEDICAL MINUTES GROUP OFFICE 56201 ROSS GILES OUTPATIEN 6 6 [facility] T VISIT HOSPITAL 10 P MINUTES OFFICE 36299 [facility] HERR OUTPATIEN 6 6 PHYSICIAN FRANKIE T VISIT S GROUP 15 MINUTES OFFICE 81430 NEPHROLOG SHAIKH OUTPATIEN 6 6 Y THO T NEW 60 ASSOCIATE MINUTES S OF BERRY OFFICE 44651 [place] [facility] OUTPATIEN 6 6 MEDICAL JAM T VISIT SERV 15 FOUNDATIO MINUTES N EMERGENCY 05667 ROSS 6 6 [facility] DEPARTMEN [facility] T VISIT HIGH/URGE NT SEVERITY HOSPITAL ROSS - 6 6 [facility] OUTPATIEN [facility] T OFFICE 03868 ROSS GILES OUTPATIEN 6 6 [facility] T VISIT HOSPITAL 15 P MINUTES HOSPITAL ROSS - 6 6 [facility] OUTPATIEN [facility] T OFFICE 71383 BRIJESH LIANG OUTPATIEN 6 6 AZUL WATTS T VISIT 15 MINUTES HOSPITAL ROSS - 6 6 [facility] OUTPATIEN [facility] T OFFICE 36774 [facility] LAUREN NELSON 5 5 PHYSICIAN JENKINS T VISIT S GROUP SALTY SOTELO 15 MINUTES EMERGENCY 74331 ROSS 5 5 [facility] DEPARTMEN [facility] T VISIT LOW/MODER SEVERITY HOSPITAL ROSS - 5 5 [facility]EN [facility] ROSS [facility] 5 5 [facility]EN [facility] H[facility]PITAL ROSS - 5 5 [facility] OUTPATIEN [facility] T OFFICE 10059 [facility] 5 5 [facility] T VISIT [facility] 15 G MINUTES [facility] [address] [facility] [address] IN[facility]IENT HOSPITAL ROSS - 5 5 [facility] ROSS [facility] 5 5 [facility] HOSPITAL ROSS - 5 5 [facility] ROSS - 5 5 [facility] OUTPAT[facility]EN [facility] ROSS [facility] 5 5 [facility] OUTPATIEN [facility] T OFFICE 70021 HMJuliana AGUILAR OUTPATIEN 5 5 PHYSICIAN STONE T VISIT S GROUP SALTY SOTELO 15 MINUTES HOSPITAL ROSS - 5 5 [facility] ROSS - 5 5 [facility] ROSS - 5 5 [facility] ROSS - 5 5 [facility] OUTPATIEN INC T OFFICE 96811 CARMENZA HERR OUTPATIEN 5 5 FRANKIE FRANKIE T VISIT 10 MINUTES EMERGENCY 71977 ROSS MERCEDES 5 5 [facility] T VISIT P MODERATE SEVERITY HOSPITAL ROSS - 5 5 [facility] OUTPATIEN INC EMERGENCY 67199 ROSS MERCEDES 5 5 [facility] T VISIT P MODERATE SEVERITY HOSPITAL ROSS - 5 5 [facility] ROSS - 4 4 [facility] ROSS - 4 4 [facility] ROSS - 4 4 [facility] OUTPATIEN INC T OFFICE 02749 [facility] OUTPATIEN 4 4 PHYSICIAN T VISIT S GROUP 25 MINUTES HOSPITAL ROSS - 4 4 [facility] ROSS - 4 4 [facility] OUTPATIEN INC T OFFICE 97210 BREEZY BREEZY OUTPATIEN 4 4 [facility] T NEW 20 HOSPITAL ROSS - 4 4 [facility] ROSS - 4 4 [facility] ROSS - 4 4 [facility] ROSS - 4 4 [facility] OUTPATIEN INC Emergency ERICH Mercedes MD (ER) 3 23:16 3 01:07 [facility] [place] [address] 3 [facility] In[facility] IMP Ross Johnson MD (IN) 3 01:10 3 03:40 [facility] ROSS - 3 3 [facility] OUTPATIEN [facility] HOSPITAL ROSS - 3 3 [facility] OUTPATIEN [facility] ROSS [facility] 3 3 [facility] OUTPATIEN [facility] HOSPITAL ROSS - 3 3 [facility] Emergency ERICH Prasad (ER) 3 12:15 3 16:27 [facility] Emergency ERICH Mercdees MD (ER) 3 23:38 3 01:05 [facility] ROSS - 3 3 [facility] Inpatient IMP (IN) 3 14:10 3 10:30 Inpatient IMP Ross McYurymie (IN) 3 07:00 3 14:10 [facility] Goran OFFICE 51614 MCKEMIE MCKEMIE OUTPATIEN 3 3 JR IRAIDA IRAIDA T VISIT 15 MINUTES Emergency ERICH MCKINNON (ER) 3 21:46 3 21:54 [facility] EMERGENCY 62769 ALFARIS ALFARIS 3 3 [facility] T VISIT [facility] HOSPITAL ROSS - 3 3 [facility] OUTPATIEN [facility] T Emergency ERICH Pressley MD (ER) 3 01:47 3 06:27 [facility] Inpatient IMP Ross Castro (IN) 3 04:31 3 11:50 Aliya Francois [facility] ROSS - 3 3 [facility] INPATIENT INC OFFICE 70281 SUSYSTACEY SUSYEDGAREarl OUTPATIEN 3 3 JR IRAIDA [facility] 30 MINUTES [facility] ROSS - 3 3 [facility] OUTPATIEN INC OFFICE 48532 PETTEY PETTEY OUTPATIEN 3 3 AINSLEY SCHMITZ [facility] 30 MINUTES OFFICE 97121 FALLUDAYO FALLUJI OUTPATIEN 3 3 MEM[facility] VALENTINE T VISIT 25 MINUTES HOSPITAL ROSS - 2 2 [facility] ROSS - 2 2 [facility] ROSS - 2 2 [facility] OUTPATIEN [facility] T OFFICE 02620 GILES GILES OUTPATIEN 2 2 SONDRA SONDRA T VISIT 5 MINUTES OFFICE 90509 HARPERNELL OUTPATIEN 2 2 STEFANIE T VISIT 5 MINUTES HOSPITAL ROSS - 2 2 [facility] ROSS [facility] 2 2 [facility] ROSS [facility] 2 2 [facility] HOSPITAL ROSS - 2 2 [facility] OUTPATIEN INC T OFFICE 92408 BRIJESH LIANG OUTPATIEN 2 2 AZUL WATTS T VISIT 5 MINUTES OFFICE 66933 ROSS OUTPATIEN 2 2 [facility] T VISIT INC 25 MINUTES HOSPITAL ROSS - 2 2 [facility] OUTPATIEN INC T OFFICE 32963 BRIJESH LIANG OUTPATIEN 2 2 AZ[facility] WATTS T VISIT 5 MINUTES OFFICE 41283 BRIJESH ANDINOPEL OUTPATIEN 2 2 AZUL PALMER STEFANIE T VISIT 5 MINUTES HOSPITAL ROSS - 1 1 [facility] OUTPATIEN INC T OFFICE 35477 BRIJESH [place] HARPEL OUTPATIEN 1 1 AZUL PALMER STEFANIE T VISIT 5 MINUTES HOSPITAL ROSS - 1 1 [facility]EN INC T HOSPITAL ROSS - 1 1 [facility] T HOSPITAL ROSS - 1 1 [facility] OUTPATIEN INC T OFFICE 48935 BRIJESH [place] HARPEL OUTPATIEN 1 1 AZUL PALMER STEFANIE T VISIT 5 MINUTES OFFICE 19252 ROSS LOWEKINS OUTPATIEN 1 1 [facility] VISIT HOSPITAL 25 P MINUTES HOSPITAL ROSS - 1 1 [facility] OUTPATIEN INC T OFFICE 63773 ROSS OUTPATIEN 1 1 [facility] T VISIT INC 25 MINUTES HOSPITAL ROSS - 1 1 [facility] OUTPATIEN INC T OFFICE 69198 [facility] OUT[facility] 1 1 PHYSICIAN MEME T VISIT S GROUP 25 MINUTES OFFICE 44465 BRIJESH ANDINOPEL OUTPATIEN 1 1 AZUL PALMER STEFANIE T VISIT 5 MINUTES OFFICE 30155 ROSS GILES OUTPATIEN 1 1 [facility] T VISIT HOSPITAL 25 P MINUTES OFFICE 12185 BRIJESH ANDINOPEL OUTPATIEN 1 1 AZUL PALEMR STEFANIE T VISIT 5 MINUTES OFFICE 06337 BRIJESH KAISERL OUTPATIEN 1 1 AZUL PALMER STEFANIE T VISIT 5 MINUTES HOSPITAL ROSS - 1 1 [facility] OUTPATIEN INC T HOSPITAL ROSS - 1 1 [facility] OFFICE 50729 ORSS GILES OUTPATIEN 1 1 [facility] SONDRA VISIT HOSPITAL 25 P MINUTES HOSPITAL ROSS - 1 1 [facility] INPATIENT [facility] EMERGENCY 82374 LARISA MERCEDES DEPT 1 1 EMERGENCY MATY VISIT SERVICES HIGH SEVERITY& THREAT FUNCJ OFFICE 83410 Perla PHILLIPS OUTPATIEN 1 1 JACQUELINE GONZALEZ T VISIT PSC 25 MINUTES OFFICE 31956 BRIJESH LIANG OUTPATIEN 0 0 AZUL WATTS T VISIT 25 MINUTES HOSPITAL ROSS - 0 0 [facility] OUTPATIEN [facility] ROSS - 0 0 [facility] - 0 0 [facility] 0 0 [facility] OUTPAT[facility] OFFICE 35030 BRIJESH LIANG OUTPATIEN 0 0 AZUL WATTS T VISIT 5 MINUTES HOSPITAL ROSS - 0 0 [facility] INPATIENT [facility] EMERGENCY 20038 LARISA SYKES DEPT 0 0 EMERGENCY VISIT SERVICES HIGH SEVERITY& THREAT FUNCJ OFFICE 95720 COMMON[facility] GILES OUTPATIEN 0 0 LT SONDRA T VISIT UROLOGY 25 PSC MINUTES OFFICE 97531 BRIJESH LIANG OUTPATIEN 0 0 AZUL WATTS T VISIT 5 MINUTES HOSPITAL ROSS - 0 0 [facility] OUTPATIEN [facility] T OFFICE 97107 COMMONWEA GILES OUTPATIEN 0 0 LTH SONDRA T VISIT UROLOGY 25 PSC MINUTES OFFICE 29087 [facility]ON[facility] GILES OUTPATIEN 0 0 LTH SONDRA T VISIT UROLOGY 25 PSC MINUTES OFFICE 01634 BRIJESH R HARPEL OUTPATIEN 0 0 HARPEL MD WATTS T VISIT 5 MINUTES HOSPITAL ROSS - 0 0 [facility] OUTPATIEN INC T OFFICE 49449 COMMONWE[facility] GILES OUTPATIEN 0 0 LTH SONDRA T VISIT UROLOGY 25 PSC MINUTES OFFICE 47441 BRIJESH [place] HARPEL, OUTPATIEN 0 0 THUPEL MD COLEY R T VISIT 5 MINUTES OFFICE 86583 BRIJESH [place] HARPEL, OUTPATIEN 0 0 HARPEL MD COLEY R T VISIT 15 MINUTES OFFICE 22064 BRIJESHSUSAN LIANG OUTPATIEN 0 0 THUPEL MD WATTS T VISIT 5 MINUTES OFFICE 52562 COMMONWEA GILES, OUTPATIEN 0 0 [facility] FLO D T NEW 30 UROLOGY MINUTES PSC OFFICE 07624 BRIJESH [place] HARPEL, OUTPATIEN 0 0 HARPEL MD COLEY R T VISIT 15 MINUTES OFFICE 79245 BRIJESH [place] HARPEL, OUTPATIEN 0 0 HARPEL MD COLEY R T VISIT 15 MINUTES OFFICE 97831 BRIJESH R HARPEL, OUTPATIEN 0 0 AWILDAL MD COLEY R T VISIT 5 MINUTES HOSPITAL ROSS - 0 0 [facility] OUTPATIEN INC T OFFICE 79962 BRIJESH [place] HARPEL, OUTPATIEN 0 0 AWILDAL MD COLEY R T VISIT 25 MINUTES HOSPITAL ROSS - 0 0 [facility] OUTPATIEN INC T OFFICE 58257 BRIJESH R HARPEL, OUTPATIEN 0 0 AZUL COLEY R T VISIT 25 MINUTES OFFICE 70148 BRIJESH ANDINOPEAdrian, OUTPATIEN 0 0 AZUL COLEY R T VISIT 5 MINUTES HOSPITAL ROSS - 0 0 [facility] OUTPATIEN INC T EMERGENCY 02775 ROSS 0 0 [facility] DEPARTMEN INC T VISIT MODERATE SEVERITY EMERGENCY 13181 LARISA MERCEDES, 0 0 EMERGENCY [facility] SERVICES T VISIT HIGH/URGE ASSOCIATE NT S SEVERITY EMERGENCY 11463 LARISA MERCEDES, 0 0 EMERGENCY [facility] SERVICES T VISIT HIGH/URGE ASSOCIATE NT S SEVERITY EMERGENCY 59415 ROSS 0 0 [facility] DEPARTMEN INC T VISIT LOW/MODER SEVERITY HOSPITAL ROSS - 0 0 [facility] OUTPATIEN INC T OFFICE 48792 LESLIE GRANT 9 9 AZ[facility] [place] T VISIT 5 MINUTES OFFICE 01636 [facility] CONSULTAT 9 9 , FLORECITAFLORECITA Campbell ION NEW/ESTAB PATIENT 60 MIN OFFICE 60504 LESLIE GRANT 9 9 AZ[facility] [place] T VISIT 40 MINUTES EMERGENCY 98635 LARISA CARRASCO, 9 9 EMERGENCY [facility] DEPARTMEN SERVICES T VISIT MODERATE ASSOCIATE SEVERITY S HOSPITAL ROSS - 9 9 [facility] OUTPATIEN INC T OFFICE 98136 LESLIE GRANT 9 9 AZUL [place] T VISIT 5 MINUTES EMERGENCY 60142 ROSS 9 9 [facility] DEPARTMEN INC T VISIT LOW/MODER SEVERITY EMERGENCY 20378 LARISA TYLER, 9 9 EMERGENCY PARI DEPARTMEN SERVICES T VISIT HIGH/URGE ASSOCIATE NT S SEVERITY HOSPITAL ROSS - 9 9 [facility] OUTPATIEN INC T OFFICE 72540 [facility] LESLIE OROSCO 9 9 PHYSICIAN NADEEM [place] T VISIT S GROUP 25 MINUTES HOSPITAL ROSS - 9 9 [facility] OUTPATIEN INC T OFFICE 06953 LESLIE GRANT 9 9 AZUL [place] T VISIT 5 MINUTES HOSPITAL ROSS - 9 9 [facility] OUTPATIEN INC T HOSPITAL ROSS - 9 9 [facility] OUTPATIEN INC T EMERGENCY 00476 ROSS 9 9 [facility] DEPARTMEN INC T VISIT LOW/MODER SEVERITY OFFICE 52543 LESLIE BERTRAND 9 9 MEDICAL ANDER T VISIT SERV 15 FOUNDATIO MINUTES EMERGENCY 95461 LARISA AGUILAR, 9 9 EMERGENCY [facility] DEPARTMEN SERVICES O T VISIT HIGH/URGE ASSOCIATE NT S SEVERITY HOSPITAL ROSS - 9 9 [facility] OUTPATIEN INC T EMERGENCY 02755 ROSS 9 9 [facility] DEPARTMEN INC T VISIT HIGH/URGE NT SEVERITY OFFICE 24478 LESLIE GRANT 9 9 AZ[facility] [place] T VISIT 5 MINUTES EMERGENCY 04738 LARISA MERCEDSE, DEPT 9 9 EMERGENCY [place] S VISIT SERVICES HIGH SEVERITY& ASSOCIATE THREAT S [facility] ROSS - 9 9 [facility] OUTPATIEN INC T OFFICE 42750 LESLIE GRANT 9 9 AZUL [place] T VISIT 5 MINUTES HOSPITAL ROSS - 9 9 [facility] OUTPATIEN INC T EMERGENCY 72977 ROSS 9 9 [facility] DEPARTMEN INC T VISIT LIMITED/M INOR PROB EMERGENCY 94703 LARISA RUTLEDGE 9 9 EMERGENCY [facility] DEPARTMEN SERVICES T VISIT MODERATE ASSOCIATE SEVERITY S OFFICE 40553 PETRA LAMBERT OUTPATIEN 9 9 DON R DON R T VISIT 15 MINUTES EMERGENCY 02396 LARISA MARROQUIN, 9 9 EMERGENCY ANY R [facility] SERVICES T VISIT MODERATE ASSOCIATE SEVERITY S EMERGENCY 68167 ROSS 9 9 [facility] DEPARTMEN INC T VISIT LIMITED/M INOR PROB HOSPITAL ROSS - 9 9 [facility] OUTPATIEN INC T OFFICE 36380 RODOLFO RODRIGUEZ OUTPATIEN 9 9 FABIENNE WORTHINGTON T VISIT SERV 25 FOUNDATIO MINUTES OFFICE 19659 TERENCE PRATT OUTPATIEN 9 9 PARI YAÑEZ T VISIT 40 MINUTES OFFICE 77269 LESLIE GRANT 9 9 AZUL COLEY R T VISIT 5 MINUTES OFFICE 45740 JULIAN GRANTPATIDENNISE 9 9 AZUL COLEY R T VISIT 5 MINUTES OFFICE 96812 JULIAN GRANTPATIDENNISE 9 9 AZUL COLEY R T VISIT 5 MINUTES OFFICE 75115 PETRA LAMBERT OUTPATIEN 9 9 DON R DON R T VISIT 15 MINUTES OFFICE 54157 LESLIE GRANT 9 9 AZUL COLEY R T VISIT 5 MINUTES EMERGENCY 22927 ROSS 9 9 [facility] DEPARTMEN INC T VISIT MODERATE SEVERITY HOSPITAL ROSS - 9 9 [facility] OUTPATIEN INC T EMERGENCY 37295 JUSTINO MERCEDES, DEPT 9 9 NATIONAL TIMOTHY S VISIT CORPORATI HIGH ON SEVERITY& THREAT [facility] ROSS - 8 8 [facility] OUTPATIEN INC T OFFICE 65559 PETRA LAMBERT OUTPATIEN 8 8 DON R DON R T VISIT 15 MINUTES OFFICE 68450 PETRA LAMBERT OUTPATIEN 8 8 DON R DON R T VISIT 15 MINUTES OFFICE 90155 BRIJESH LIANG OUTPATIEN 8 8 AZUL PALMER BRIJESH R T VISIT 5 MINUTES OFFICE 84782 BRIJESH LIANG OUTPATIDENNISE 8 8 AZUL PALMER BRIJESH R T VISIT 25 MINUTES OFFICE 21850 BRIJESH LIANG OUTPATIEN 8 8 AZUL PALMER BRIJESH R T VISIT 5 MINUTES OFFICE 44260 LESLIE OTOOLE 8 8 MEDICAL CLYDE T VISIT SERV 10 FOUNDATIO MINUTES OFFICE 65404 BRIJESH LIANG OUTPATIDENNISE 8 8 AZUL COLEY R T VISIT 25 MINUTES OFFICE 95027 PETRA LAMBERT OUTPATIEN 8 8 DON R DON R T VISIT 15 MINUTES HOSPITAL ROSS - 8 8 [facility] OUTPATIEN INC T HOSPITAL ROSS - 8 8 [facility] OUTPATIEN INC T OFFICE 88222 LESLIE LEMUS 8 8 MEDICAL GEN T NEW 30 SERV ER A MINUTES FOUNDATIO OFFICE 03424 LESLIE BERTRAND 8 8 MEDICAL ANDER T VISIT SERV 25 FOUNDATIO MINUTES OFFICE 58860 PETRA LAMBERT OUTPATIEN 8 8 DON R DON R T VISIT 15 MINUTES HOSPITAL ROSS - 8 8 [facility] OUTPATIEN INC T HOSPITAL ROSS - 8 8 [facility] OUTPATIEN INC T EMERGENCY 17209 ROSS 8 8 [facility] DEPARTMEN INC T VISIT HIGH/URGE NT SEVERITY OFFICE 07372 PETRA LAMBERT OUTPATIEN 8 8 DON R DON R T VISIT 15 MINUTES OFFICE 31406 LESLIE GRANT 8 8 AZUL [place] T VISIT 40 MINUTES OFFICE 67058 PETRA LAMBERT OUTPATIEN 8 8 DON R DON R T VISIT 15 MINUTES HOSPITAL ROSS - 8 8 [facility] OUTPATIEN INC T EMERGENCY 77653 ROSS 8 8 [facility] DEPARTMEN INC T VISIT MODERATE SEVERITY HOSPITAL ROSS - 8 8 [facility] OUTPATIEN INC T OFFICE 83499 BRIJESH LIANG OUTPATIDENNISE 8 8 AZ[facility] [place] T VISIT 5 MINUTES HOSPITAL ROSS - 8 8 [facility] OUTPATIEN INC T OFFICE 56654 [facility]AN [facility] JR JOHN, T VISIT ROSARIO Mary ROSARIO F 25 MINUTES OFFICE 92965 LESLIE GRANT 8 8 AZ[facility] [place] T VISIT 5 MINUTES OFFICE 87173 PETRA LAMBERT OUTPATIEN 8 8 DON R DON R T VISIT 15 MINUTES OFFICE 87588 LESLIE BERTRAND 8 8 FABIENNE WORTHINGTON T VISIT SERV 25 FOUNDATIO MINUTES EMERGENCY 46294 ROSS 8 8 [facility] DEPARTMEN INC T VISIT LOW/MODER SEVERITY HOSPITAL ROSS - 8 8 [facility] OUTPATIEN INC T HOSPITAL ROSS - 8 8 [facility] OUTPATIEN INC T EMERGENCY 39038 ROSS 8 8 [facility] DEPARTMEN INC T VISIT HIGH/URGE NT SEVERITY OFFICE 86820 ALLRAN ALLRAN OUTPATIEN 8 8 JR JOHN, T VISIT ROSARIO Mary 15 MINUTES OFFICE 55085 ALLJULIOCESAR [facility] 8 8 JR JOHN, T VISIT ROSARIO Mary 25 MINUTES OFFICE 10797 [facility] 8 8 AZUL Hassan VISIT 5 MINUTES H[facility] [place] - 8 8 [facility]EN [facility] [place] [facility] 8 8 [facility]PATIEN [facility] [place] - 8 8 [facility] OUTPATIEN [facility] T OFFICE 78307 TERENCE PRATT, CONSULTFRANCISCO 8 8 PARI [place] [facility] PATIENT 80 MIN OFFICE 12723 PETRA [facility] 8 8 DON R DON R T VISIT 15 MINUTES [facility]OSP[facility] 8 [facility] [place] [facility] OUT[facility] T OFFICE 64087 [facility]ESH [facility] 8 8 AZUL Hassan VISIT 25 MINUTES OFFICE 24822 [facility] 8 DON R DON R T VISIT 15 MINUTES [facility] [place] - 8 8 [facility] OUTPATIEN [facility] T OFFICE 45365 RODOLFO RODRIGUEZ [facility] 8 8 FBAIENNE WORTHINGTON T VISIT SERV 25 FOUNDATIO MINUTES
[2017-04-05 22:24] VITALS: BP 141/69
--- OUTSIDE RECORDS SUMMARY | 2017-04-05 22:36 | External Medical Summary Rpt ---
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 HAWKINS TTHRC R-T 7 [facility] 2D INC INC W/WOM-MOD E COMPL SPEC&COLR D ECG 82066 [facility] LAM ROUTINE 7 [facility] ECG MEDICAL W/LEAST G 12 LDS [...] MEDICAL RENT; EQUIPME EQUIPME FLWMTR HUMIDFR&M ASK RENAL 20212 [facility] FUNCTION 6 [facility] PANEL INC INC URNLS DIP 27955 [facility] 6 [facility] STICK/TAB INC INC [place] [address] ROSS HAWKINS ERYTHROPO 6 [facility] IETIN INC INC IRON 73950 ROSS HAWKINS BINDING 6 [facility] CAPACITY INC INC BLOOD 89389 [facility] COUNT 6 [facility] RETICULOC INC INC YTE AUTOMATED CULTURE 65708 ROSS HAWKINS BACTERIAL 6 [facility] INC INC QUANTTAT[place] [address] ROSS HAWKINS FERRITIN 6 [facility] [place] [address] ROSS HAWKINS IRON 6 [facility] INC INC COLLECTIO 22914 ROSS HAWKINS N VENOUS 6 [facility] [place] [address] ROSS HAWKINS RETROPERI 6 [facility] TONEAL INC [place] [address] BALDEV BIRD RETROPERI 6 MEDICAL TONEAL IMAGING REAL TIME ASS W/IMAGE LIMITED RADEX 89952 BALDEV LAURAUTCHER RIBS 6 MEDICAL UNILATERA IMAGING L 2 VIEWS ASS RADEX 15138 ROSS HAWKINS RIBS UNI 6 [facility] W/POSTERO INC INC ANT CH MINIMUM 3 VIEWS RADEX 30463 BALDEV BIRD RIBS UNI 6 MEDICAL W/POSTERO IMAGING ANT CH ASS MINIMUM 3 VIEWS O2 CONC 1 E1390 DAREK OSWALD DEL PORT 6 HOME HOME 85%/>02 MEDICAL MEDICAL CONC AT EQUIPME EQUIPME PRSC FLW RATE PRTBLE E0431 DAREK RAMIREZRELL GASEOUS 6 HOME HOME O2 SYS MEDICAL MEDICAL RENT; EQUIPME EQUIPME FLWMTR HUMIDFR&M ASK RADIOLOGI 06486 BALDEV BIRD ALL C EXAM 6 MEDICAL CHEST 2 IMAGING VIEWS ASS FRONTAL&L ATERAL ECG 01391 ROSS ELDER ROUTINE 6 [facility] W/LEAST P 12 LDS I&R ONLY RADIOLOGI 72307 ROS[facility] HAWKINS C EXAM 6 [facility] CHEST 2 INC INC VIEWS FRONTAL&L ATERAL PRESSURIZ 16906 ROSS HAWKINS ED/NONPRE 6 [facility] SSURIZED INC INC INHALATIO N TREATMENT PRTBLE E0431 DAREK RAMIREZRELL GASEOUS 6 HOME HOME O2 SYS MEDICAL MEDICAL RENT; EQUIPME EQUIPME FLWMTR HUMIDFR&M ASK O2 CONC 1 E1390 DAREK BELTRAN PORT 6 HOME HOME 85%/>02 MEDICAL MEDICAL CONC AT [facility] FLW RATE THERAPEUT 09055 ROSS HAWKINS IC 6 [facility] PROPHYLAC INC INC TIC/DX INJECTION SUBQ/IM THERAPEUT 03055 ROS[facility] HAWKINS IC 6 [facility] PROPHYLAC INC INC TIC/DX INJECTION SUBQ/IM THERAPEUT 58785 [facility] HAWKINS IC 6 [facility] PROPHYLAC INC INC TIC/DX INJECTION SUBQ/IM ALBUTEROL J7620 YOUR YOUR TO 2.5 6 PHARMACY PHARMACY [employer] IPRATROPI UM BROM TO 0.5 MG ADMN SET A7003 YOUR YOUR SM VOL 6 PHARMACY PHARMACY NONFIL Fon [facility] PNEUMAT NEBULIZR DISPBL PHRM Q0513 YOUR YOUR DISPENSIN 6 PHARMACY PHARMACY G FEE Fon [facility] INHALATIO N RX; PER 30 DAYS THERAPEUT 19412 [facility] HAWKINS IC 6 [facility] PROPHYLAC INC INC TIC/DX INJECTION SUBQ/IM THERAPEUT 24569 ROS[facility] HAWKINS IC 6 [facility] PROPHYLAC INC INC TIC/DX INJECTION SUBQ/IM THERAPEUT 11044 ROSS HAWKINS IC 6 [facility] PROPHYLAC INC INC TIC/DX INJECTION SUBQ/IM THERAPEUT 63780 ROS[facility] HAWKINS IC 6 [facility] PROPHYLAC INC INC TIC/DX INJECTION SUBQ/IM THERAPEUT 45794 ROSS HAKWINS IC 6 [facility] PROPHYLAC INC INC TIC/DX INJECTION SUBQ/IM THERAPEUT 92877 [facility] HAWKINS IC 6 [facility] PROPHYLAC INC INC TIC/DX INJECTION SUBQ/IM THERAPEUT 78258 [facility] HAWKINS IC 6 [facility] PROPHYLAC INC INC TIC/[place] INJECTION SUBQ/[place] [address] ROSS HAWKINS ABDOMINAL 6 [facility] REAL [place] [address] [place] ALL ABDOMINAL 6 MEDICAL REAL IMAGING TIME ASS W/IMAGE LIMITED COLLECTIO 94726 ROS[facility] HAWKINS N VENOUS 6 [facility] BLOOD INC INC VENIPUNCT URE O2 CONC 1 E1390 DAREK MCGOWAN DEL PORT 6 HOME MAR 85%/>02 MEDICAL CONC AT [facility] FLW RATE CALCIUM 39700 ROSS HAWKINS IONIZED 6 [facility] INC INC PRTBLE E0431 DAREK MCGOWAN GASEOUS 6 HOME MAR O2 SYS MEDICAL RENT; EQUIPME FLWMTR HUMIDFR&M ASK URNLS DIP 46038 [facility] HAWKINS 6 [facility] STICK/TAB INC INC LET REAGENT AUTO MICROSCOP Y RENAL 84375 ROSS HAWKINS FUNCTION 6 [facility] PANEL INC INC NERVE 53561 ROSS HAWKINS CONDUCTIO 6 [facility] N STUDIES INC INC 5-6 STUDIES ADMN SET A7003 YOUR YOUR SM VOL 6 PHARMACY PHARMACY NONFILTR Fon [facility] PNEUMAT NEBULIZR DISPBL ALBUTEROL J7620 YOUR YOUR TO 2.5 6 PHARMACY PHARMACY [employer] [facility] IPRATROPI UM BROM TO 0.5 MG AREO MASK A7015 YOUR YOUR USED W/ 6 PHARMACY PHARMACY [employer] PHR Q0513 YOUR YOUR DISPENSIN 6 PHARMACY PHARMACY G FEE [employer] INHALATIO N RX; PER 30 DAYS COLONOSCO 33336 [facility] HAWKINS PY 6 [facility] W/BIOPSY INC INC SINGLE/MU LTIPLE ANES 94521 COMMUNITY FEEBACK LOWER 6 ANESTH REE INTESTINE OF [place] [address] ROSS HAWKINS SURG 6 [facility] PATHOLOGY INC INC GROSS&MATY ROSCOPIC EXAM O2 CONC 1 E1390 DAREKDONNA WU DEL PORT 6 HOME CHAGO 85%/>02 MEDICAL CONC AT [facility] FLW RATE PRTBLE E0431 DAREK WU GASEOUS 6 HOME CHAGO O2 SYS MEDICAL RENT; EQUIPME FLWMTR HUMIDFR&M ASK AREO MASK A7015 YOUR YOUR USED W/ 6 PHARMACY PHARMACY [employer] PHRM Q0513 YOUR YOUR DISPENSIN 6 PHARMACY PHARMACY G FEE [employer] INHALATIO N RX; PER 30 DAYS ADMN SET A7003 YOUR YOUR SM VOL 6 PHARMACY PHARMACY NONFILTR Fon LLC PNEUMAT NEBULIZR DISPBL ALBUTEROL J7620 YOUR YOUR TO 2.5 6 PHARMACY PHARMACY MG & LLC LLC IPRATROPI UM BROM TO 0.5 MG COMPREHEN 83829 [facility]WKINS SIVE 6 [facility] METABOLIC INC INC PANEL COLLECTIO 51242 ROSS HAWKINS N VENOUS 6 [facility] BLOOD INC INC VENIPUNCT URE EXTERNAL 47273 ROSS HAWKINS ECG 6 [facility] SCANNING [place] [address] ROSS HAWKINS PARATHORM 6 [facility] ONE INC INC 25 29153 ROSS HAWKINS HYDROXY 6 [facility] INCLUDES INC INC FRACTIONS IF PERFORMED XTRNL ECG 24246 ROSS HAWKINS & 48 HR 6 [facility] RECORDING INC INC ECG 27759 ROSS HAWKINS ROUTINE 6 [facility] ECG INC INC W/LEAST 12 LDS TRCG ONLY W/O I&R COMPREHEN 05864 ROS[facility] HAWKINS SIVE 6 [facility] [place] [address] ROSS HAWKINS INFUSION 6 [facility] THERAPY/P INC INC ROPHYLAXI S /DX 1ST TO 1 HR URNLS DIP 31270 ROS[facility] HAWKINS 6 [facility] STICK/TAB INC INC [place] [address] ROSS HAWKINS TROPONIN 6 [facility] QUANTITAT INC INC CLAUDE ECG 23515 ROSS ELDER ROUTINE 6 [facility] W/LEAST P 12 LDS I&R ONLY ECG 06025 ROSS HAWKINS ROUTINE 6 [facility] ECG INC INC W/LEAST 12 LDS TRCG ONLY W/O I&R RADIOLOGI 78654 ROSS HAWKINS C EXAM 6 [facility] CHEST 2 INC INC VIEWS FRONTAL&L ATERAL O2 CONC 1 E1390 DAREK JUAN M DEL PORT 6 HOME MAR 85%/>02 MEDICAL CONC AT [facility] FLW RATE PRTBLE E0431 DAREK JUAN M GASEOUS 6 HOME MAR O2 SYS MEDICAL RENT; [facility] FLWMTR HUMIDFR&M ASK BLOOD 12595 ROSS HAWKINS COUNT 6 [facility] COMPLETE INC INC AUTO&AUTO DIFRNTL WBC BASIC 39588 ROSS HAWKINS METABOLIC 6 [facility] PANEL INC INC CALCIUM TOTAL ECG 29679 ROSS ROSS ROUTINE 6 [facility] ECG INC INC W/LEAST 12 LDS TRCG ONLY W/O I&R COLLECTIO 15157 ROSS HAWKINS N VENOUS 6 [facility] BLOOD INC INC VENIPUNCT URE ECG 96978 ROSS ELDER ROUTINE 6 [facility] W/LEAST P 12 LDS I&R ONLY ALBUTEROL J7620 YOUR YOUR TO 2.5 6 PHARMACY PHARMACY [employer] & [employer] IPRATROPI UM BROM TO 0.5 MG ADMN SET A7003 YOUR YOUR SM VOL 6 PHARMACY PHARMACY NONFILTR Fon [facility] PNEUMAT NEBULIZR DISPBL PHRM Q0513 YOUR YOUR DISPENSIN 6 PHARMACY PHARMACY G F[employer] INHALATIO N RX; PER 30 DAYS NONINVASI 00791 ROSS HAWKINS VE 6 [facility] EAR/PULSE INC INC OXIMETRY SINGLE DETER PRESSURIZ 01632 ROSS HAWKINS ED/NONPRE 6 [facility] SSURIZED INC INC INHALATIO N TREATMENT RADIOLOGI 73118 ROSS HAWKINS C EXAM 6 [facility] CHEST 2 INC INC VIEWS FRONTAL&L ATERAL O2 CONC 1 E1390 DAREK HEDRICK DEL PORT 6 HOME LISA 85%/>02 MEDICAL CONC AT [facility] FLW RATE URETHROCY 01317 BALDEV BIRD ALL STOGRAPHY 6 MEDICAL VOIDING IMAGING RS&I ASS LOCM Q9965 ROSS HAWKINS 100-199 6 [facility] MG/ML INC INC IODINE CONCENTRA TION PER ML PRTBLE E0431 DAREK HEDRICK GASEOUS 6 HOME LISA O2 SYS MEDICAL RENT; EQUIPME FLWMTR HUMIDFR&M ASK AREO MASK A7015 YOUR YOUR USED W/ 6 PHARMACY PHARMACY [employer] PHRM Q0513 YOUR YOUR DISPENSIN [address] [facility] [facility] INHALATIO N RX; PER 30 DAYS ALBUTEROL J7620 YOUR YOUR TO 2.5 6 PHARMACY PHARMACY MG & LLC LLC IPRATROPI UM BROM TO 0.5 MG ADMN SET A7003 YOUR YOUR SM VOL 6 PHARMACY PHARMACY NONFILTR LLC LLC PNEUMAT NEBULIZR DISPBL O2 CONC 1 E1390 DAREK O'IRA DEL PORT 6 HOME MOL 85%/>02 MEDICAL CONC AT EQUIPME PRSC FLW RATE PRTBLE E0431 DAREK O'IRA GASEOUS 6 HOME MOL O2 SYS MEDICAL RENT; EQUIPME FLWMTR HUMIDFR&M ASK MRI 13832 [facility] SPINAL 6 [facility] LUMBAR W/O CONTRAST MATERIAL MRI 28567 [facility] SPINAL 6 [facility] THORACIC W/O CONTRAST MATRL DUP-SCAN [address] ART/ARTL MEDICAL BPGS G COMPL BI STUDY NON-INVAS [address] PHYSIOLOG MEDICAL IC STD G EXTREMITY ART 2 LEVEL NON-INVAS [address] PHYSIOLOG IC STD EXTREMITY ART 2 LEVEL DUP-SCAN 75783 NEPHROLOG NEEL ARTL JG 6 Y THO ABDL/PEL/ ASSOCIATE SCROT&/RP S OF BERRY R ORGN COM DUP-SCAN 32226 [facility] LXTR [address] [place] [address] ART/ARTL BPGS COMPL BI STUDY O2 CONC 1 E1390 DAREK ERLIN DEL PORT 6 HOME SHANNA 85%/>02 MEDICAL CONC AT EQUIPME PRSC FLW RATE PRTBLE E0431 DAREK KERN GASEOUS 6 HOME SHANNA O2 SYS MEDICAL RENT; EQUIPME FLWMTR HUMIDFR&M ASK LALA 21913 ROSS GILES POST-VOID 6 [facility] RESIDUAL P URINE&/[place] [address] ROSS HAWKINS LACTATE 6 [facility] INC INC CULTURE 31266 ROSS HAWKINS BACTERIAL 6 [facility] INC INC QUANTTATI VE COLONY COUNT URINE INJECTION J2405 ROSS FAROESE 6 MEM HOS[facility] ESOTERIC ONDANSETR INC LABORATOR [place]CL [place] [address] [place] [address] ROSS HAWKINS ABDOMEN & 6 [facility] PELVIS INC INC W/O CONTRAST MATERIAL CULTURE 44632 ROSS HAWKINS BACTERIAL 6 [facility] BLOOD INC INC AEROBIC W/ID ISOLATES BLOOD 68202 ROSS HAWKINS COUNT 6 [facility] COMPLETE INC INC AUTO&AUTO DIFRNTL WBC URNLS DIP 72253 ROSS DE SOUZA 6 [facility] LISY STICK/TAB INC LET REAGENT AUTO MICROSCOP Y THERAPEUT 63249 ROSS HAWKINS IC 6 [facility] INJECTION [place] [address] ROSS HAWKINS INFUSION 6 [facility] THERAPY/P INC INC ROPHYLAXI S /DX 1ST TO 1 HR SLCTV 97621 [facility] CATH [address] [facility] CAROTID/I MEDICAL NNOM ART G ANGIO XTRCRANL ART O2 CONC 1 E1390 DAREK [facility] DEL PORT 6 HOME IZA 85%/>02 MEDICAL CONC AT EQUIPME PRS FLW RATE PRTBLE E0431 [facility] 6 HOME IZA O2 SYS MEDICAL RENT; [facility] FLWCTR HUMIDFR&M ASK KIDNEY 83812 [place] ALL IMG 6 MEDICAL MORPHOLOG IMAGING Y ASS VASCULAR FLOW 1 W/RX URNLS DIP 28919 ROSS GILES 6 [facility] LET RGNT P NON-AUTO W/O MICRSCP COLLECTIO 17159 ROSS HAWKINS N VENOUS 6 [facility] H[facility] [place]LO[place] [address] ROSS HAWKINS FREE 6 [facility] [place] [address] ROSS HAWKINS THYROID 6 MEM H[facility] STIMULATI INC INC NG HORMONE TSH CALCIUM 29769 ROSS HAWKINS TOTAL 6 [facility] INC INC O2 CONC 1 E1390 DAREK BELTRAN PORT 6 HOME HOME 85%/>02 MEDICAL MEDICAL CONC AT EQUIPME [facility] FLW RATE PRTBLE E0431 DAREKDONNA OSWALD GASEOUS 6 HOME HOME O2 SYS MEDICAL MEDICAL RENT; EQUIPIA EQUIPIA FLWMTR HUMIDFR&[place] [address] ROSS HAWKINS INFUSION 6 [facility] THERAPY/P INC INC ROPHYLAXI S /DX 1ST TO [address] THORAX 98337 ROSS HAWKINS W/O 6 [facility] [address] ROSS HAWKINS INFUSION 6 [facility] THERAPY INC INC PROPHYLAX IS/DX EA HOUR CTA ABDL 48580 [place] AORTA&BI 6 MEDICAL NOHEMI ILIOFEM IMAGING W/CONTRAS ASS T&POSTP DUPLEX 49312 ROSS HAWKINS SCAN 6 [facility] EXTRACRAN INC INC IAL ART COMPL BI STUDY O2 CONC 1 E1390 DAREK BELTRAN PORT 6 HOME SHANNA 85%/>02 MEDICAL CONC AT EQUIPME [facility] FLW RATE PRTBLE E0431 DAREK KERN GASEOUS 6 HOME SHANNA O2 SYS MEDICAL RENT; EQUIPME FLWMTR HUMIDFR&M ASK BLOOD 80275 ROS[facility] HAWKINS COUNT 5 [facility] COMPLETE INC INC AUTO&AUTO DIFRNTL WBC COMPREHEN 09013 ROS[facility] HAWKINS SIVE 5 [facility] METABOLIC INC INC PANEL RADIOLOGI 58140 ROSS HAWKINS C EXAM 5 [facility] CHEST [...] PORT 5 HOME 85%/>02 MEDICAL CONC AT [facility] FLW RATE RADIOLOGI 36786 ROSS HAWKINS C EXAM 5 [facility] CHEST 2 INC INC VIEWS FRONTAL&L ATERAL ECG 66362 [facility] ROUTINE 5 [facility] [...] HOME HOME O2 SYS MEDICAL MEDICAL RENT; EQUIPIA EQUIPME FLWMTR HUMIDFR&M ASK O2 CONC 1 E1390 DAREK OSWALD DEL PORT 5 HOME HOME 85%/>02 MEDICAL MEDICAL CONC AT [facility] FLW RATE NONCOVERE A9270 [facility] ITEM OR 5 HOSPITAL HOSPITAL SERVICE NONCOVERE A9270 [facility] ITEM OR 5 HOSPITAL HOSPITAL SERVICE EPHYS 66200 [facility] LAMISaida TAYLOR EVAL 5 [facility] W/ABLATIO MEDICAL N G SUPRAVENT ARRHYTHMI A RADEX 84250 [place] ESOPHAGUS 5 MEDICAL ELISSA IMAGING ASS HEPATOBIL 11716 [place] IARY SYST 5 MEDICAL NOHEMI IMAGING IMAGING INCLUDING ASS GALLBLADD ER O2 CONC 1 E1390 DAREK O'IRA DEL PORT 5 HOME MOL 85%/>02 MEDICAL CONC AT [facility] FLW RATE PRTBLE E0431 DAREK O'IRA GASEOUS 5 HOME MOL O2 SYS MEDICAL RENT; EQUIPME FLWMTR HUMIDFR&M ASK XTRNL ECG 39365 ROSS ROSS & 48 HR 5 [facility] RECORDING INC INC XTRNL ECG 21540 ROSS ELDER 5 [facility] S RHYTHM P W/I&R UP TO 48 HRS ECG 90582 ROSS ELDER ROUTINE 5 [facility] W/LEAST P 12 LDS I&R ONLY ECHO 43388 ROSS HAWKINS TTHRC R-T 5 [facility]OS[facility] 2D INC INC W/WOM-MOD E COMPL SPEC&COLR D INSJ 61346 ROSS GILES NON-NDWEL 5 [facility] BLADDER P CATHETER RADIOLOGI 24384 [facility] ALL C EXAM 5 MEDICAL CHEST 2 IMAGING VIEWS ASS FRONTAL&[place] [address] [place] ALL TRACT UPR 5 MEDICAL W/SM INT IMAGING W/MULT ASS SERIAL IMAGES RADIOLOGI 89012 [place] ALL C 5 MEDICAL EXAMINATI IMAGING ON CHEST ASS SINGLE VIEW FRONTAL THERAPEUT 96877 ROSS HAWKINS IC 5 [facility] INJECTION INC INC IV PUSH EACH NEW DRUG PHRM Q0513 YOUR YOUR DISPENSIN 5 PHARMACY PHARMACY G FEE [employer] INHALATIO N RX; PER 30 DAYS ALBUTEROL J7620 YOUR YOUR TO 2.5 5 PHARMACY PHARMACY [employer] IPRATROPI UM BROM TO 0.5 MG O2 CONC 1 E1390 DAREK OSWALD DEL PORT 5 HOME HOME 85%/>02 MEDICAL MEDICAL CONC AT EQUIPME EQUIPME PRSC FLW RATE PRTBLE E0431 DAREK OSWALD GASEOUS 5 HOME HOME O2 SYS MEDICAL MEDICAL RENT; EQUIPME EQUIPME FLWMTR HUMIDFR&M ASK DIAGNOSTI G0206 ROSS HAWKINS C 5 [facility] MAMMOGRAP INC INC HY INCL CAD WHEN PERF; UNI US BREAST 15314 ROSS HAWKINS UNI REAL 5 [facility] TIME INC INC WITH IMAGE COMPLETE US BREAST 12901 [facility] UNI REAL 5 MEDICAL MEDICAL TIME IMAGING IMAGING WITH ASS ASS IMAGE LIMITED COLONOSCO 92682 [facility] JACQUI TOD PY 5 PHYSICIAN W/BIOPSY S GROUP SINGLE/MU LTIPLE EGD 83740 [facility] JACQUI TOD TRANSORAL 5 PHYSICIAN BIOPSY S GROUP SINGLE/[place] [address] ROSS HAWKINS INFUSION 5 [facility] THERAPY INC INC PROPHYLAX IS/DX EA HOUR O2 CONC 1 E1390 DAREK [place] PORT 5 HOME HOME 85%/>02 MEDICAL MEDICAL CONC AT EQUIPME EQUIPME PRSC FLW RATE PRTBLE E0431 DAREK OSWALD GASEOUS 5 HOME HOME O2 SYS MEDICAL MEDICAL RENT; EQUIPME EQUIPME FLWMTR HUMIDFR&M ASK LALA 18304 ROSS GILES POST-VOID 5 [facility] RESIDUAL P URINE&/BL ADDER CAP O2 CONC 1 E1390 DAREK [place] 5 HOME HOME 85%/>02 MEDICAL MEDICAL CONC AT EQUIPME EQUIPME PRSC FLW RATE PRTBLE E0431 DAREK OSWALD GASEOUS 5 HOME HOME O2 SYS MEDICAL MEDICAL RENT; EQUIPME EQUIPME FLWMTR HUMIDFR&M ASK POLYSOM 88259 LEE XIE MAR 6/>YRS 5 SLEEP 4/> NEUROSCIE ADDL NCES CENT RERE ATTND POLYSOM 15098 ROSS HAWKINS 6/>YRS 5 [facility] SLEEP 4/> INC INC ADDL RERE ATTND PRTBLE E0431 DAREK OSWALD GASEOUS 5 HOME HOME O2 SYS MEDICAL MEDICAL RENT; EQUIPME EQUIPME FLWMTR HUMIDFR&M ASK O2 CONC 1 E1390 DAREK [place] 5 HOME HOME 85%/>02 MEDICAL MEDICAL CONC AT EQUIP[place] [address] [facility] [place] ACTIVTD 5 [facility] ECG DWNLD [...] AT EQUIPME EQUIPME PRSC FLW RATE THERAPEUT 08811 ROSS HAWKINS IC 5 [facility] PROPHYLAC INC INC TIC/DX INJECTION SUBQ/IM ECG 05716 ROSS VASQUEZ JR ROUTINE 5 [facility] W/LEAST P 12 LDS I&R ONLY RADIOLOGI 77252 [facility] 5 MEDICAL ELISSA CHEST 2 IMAGING VIEWS ASS FRONTAL&L ATERAL O2 CONC 1 E1390 DAREK [place] [...] PER SESS TO 2 PER DAY DUP-SCAN 71655 ROSS HAWKINS LXTR 4 [facility] ART/ARTL INC INC BPGS COMPL BI STUDY XTRNL ECG 72586 ROSS HAWKINS & 48 HR 4 [facility] RECORDING INC INC EXTERNAL 85156 ROSS HAWKINS ECG 4 [facility] SCANNING INC INC ANALYSIS REPORT NON-INVAS 26211 ERENSaida CLEO CLAUDE 4 MEDICAL NOHEMI PHYSIOLOG IMAGING IC STUDY ASS EXTREMITY 3 LEVLS O2 CONC 1 E1390 DAREK [place]TRAN [place] 4 HOME HOME 85%/>02 MEDICAL MEDICAL CONC AT EQUIPME EQUIPME PRSC FLW RATE PRTBLE E0431 DAREK DAREK GASEOUS 4 HOME HOME O2 SYS MEDICAL MEDICAL RENT; EQUIPME EQUIPME FLWMTR HUMIDFR&M ASK PHRM Q0513 YOUR YOUR DISPENSIN 4 PHARMACY PHARMACY [employer] INHALATIO N RX; PER 30 DAYS ALBUTEROL J7620 YOUR YOUR TO 2.5 4 PHARMACY PHARMACY [employer] IPRATROPI UM BROM TO 0.[address] THORAX 54410 ROSS HAWKINS W/O 4 [facility] CONTRAST INC INC MATERIAL O2 CONC 1 E1390 DAREK RAMIREZRELL DEL PORT 4 HOME HOME 85%/>02 MEDICAL MEDICAL CONC AT EQUIPME EQUIPME PRSC FLW RATE PRTBLE E0431 DAREK DAREK GASEOUS 4 HOME HOME O2 SYS MEDICAL MEDICAL RENT; EQUIPME EQUIPME FLWMTR HUMIDFR&M ASK PHRM Q0513 YOUR YOUR DISPENSIN 4 PHARMACY PHARMACY [employer] INHALATIO N RX; PER 30 DAYS ALBUTEROL J7620 YOUR YOUR TO 2.5 4 PHARMACY PHARMACY [employer] IPRATROPI UM BROM TO 0.5 MG O2 CONC 1 E1390 DAREK OSWALD DEL PORT 4 HOME HOME 85%/>02 MEDICAL MEDICAL CONC AT EQUIPME EQUIPME PRSC FLW RATE PRTBLE E0431 DAREK DAREK GASEOUS 4 HOME HOME O2 SYS MEDICAL MEDICAL RENT; EQUIPME EQUIPME FLWMTR HUMIDFR&M ASK INJECTION J0696 [facility] 4 PHYSICIAN PHYSICIAN CEFTRIAXO S GROUP S GROUP NE SODIUM PER 250 MG THERAPEUT 27027 [facility] IC 4 PHYSICIAN PHYSICIAN PROPHYLAC S GROUP S GROUP TIC/DX INJECTION SUBQ/IM THERAPEUT 32218 [facility] IC 4 PHYSICIAN PHYSICIAN PROPHYLAC S GROUP S GROUP TIC/DX INJECTION SUBQ/IM INJECTION J0696 [facility] 4 PHYSICIAN PHYSICIAN CEFTRIAXO S GROUP S GROUP NE SODIUM PER 250 MG INJECTION J1040 [facility] 4 PHYSICIAN PHYSICIAN METHYLPRE S GROUP S GROUP DNISOLONE ACETATE 80 MG ECG 63022 ROSS VASQUEZ JR ROUTINE 4 [facility] W/LEAST P 12 LDS I&R ONLY O2 CONC 1 E1390 DAREK OSWALD DEL PORT 4 HOME HOME 85%/>02 MEDICAL MEDICAL CONC AT EQUIPME EQUIPME PRSC FLW RATE PRTBLE E0431 DAREK OSWALD GASEOUS 4 HOME HOME O2 SYS MEDICAL MEDICAL RENT; EQUIPME EQUIPME FLWMTR HUMIDFR&M ASK RADIOLOGI 93869 [place] C EXAM 4 MEDICAL NOHEMI CHEST 2 IMAGING VIEWS ASS FRONTAL&L ATERAL DUP-SCAN 36459 ROSS HAWKINS XTR VEINS 4 [facility] INC INC UNILATERA L/LIMITED STUDY ECG 92704 ALFARIS ALFARIS ROUTINE 4 [facility] ECG W/LEAST 12 LDS I&R ONLY GAS 43802 ROSS HAWKINS DILUT/WAS 4 [facility] HOUT LUNG INC INC VOL W/WO DISTRIB VENT&V BRNCDILAT 15604 BESYISEL SPARROWSON RSPSE 4 IZA IZA SPMTRY PRE&POST- BRNCDILAT ADMN GAS 14120 BESSON BESSON DILUT/WAS 4 IZA IZA HOUT LUNG VOL W/[place] DISTRIB VENT&[place] [address] BESSON BESSON DIFFUSING 4 IZA IZA CAPACITY APPL 39849 ROSS HAWKINS MODALITY 4 [facility] 1/> AREAS INC INC IONTOPHOR ESIS EA 15 MIN THERAPEUT 48873 ROSS HAWKINS IC PX 1/> 4 [facility] AREAS INC INC EACH 15 MIN EXERCISES APPL 59060 ROSS HAWKINS MODALITY 4 [facility] 1/> AREAS INC INC ULTRASOUN D EA 15 MIN E-STIM G0283 ROSS HAWKINS 1/> AREAS 4 [facility] OTH THAN INC INC WND CARE PART TX PLAN E-STIM G0283 ROSS HAWKINS 1/> AREAS 4 [facility] OTH THAN INC INC WND CARE PART TX PLAN APPL 44460 ROSS HAWKINS MODALITY 4 [facility] 1/> AREAS INC INC ULTRASOUN D EA 15 MIN APPL 82085 ROSS HAWKINS MODALITY 4 [facility] 1/> AREAS INC INC IONTOPHOR ESIS EA 15 MIN PHYSICAL 78194 ROSS HAWKINS THERAPY 4 [facility] EVALUATIO INC INC N LARGSC 66547 CARMENZA HERR EXC 4 FRANKIE FRANKIE OVI&/STRP G CORDS/EPI GL MCRSCP/TL SCP ESOPHAGOS 03170 CARMENZA HERR COPY 4 FRANKIE FRANKIE FLEXIBLE GUIDE WIRE DILATION ECG 89722 ROSS HAKWINS ROUTINE 4 [facility] ECG INC INC W/LEAST 12 LDS TRCG ONLY W/O I&R RADEX 82806 ROSS HAWKINS ESOPHAGUS 4 [facility] INC INC RADIOLOGI 20354 ROSS HAWKINS C EXAM 4 [facility] CHEST 2 INC INC VIEWS FRONTAL&L ATERAL ALBUTEROL J7620 YOUR YOUR TO 2.5 4 PHARMACY PHARMACY [facility] [employer] IPRATROPI UM BROM TO 0.5 MG [facility] Q0513 YOUR YOUR DISPENSIN 4 PHARMACY PHARMACY G [facility] [employer] INHALATIO N RX; PER 30 DAYS PHR Q0513 YOUR YOUR DISPENSIN 4 PHARMACY PHARMACY G FEE Fon [facility] INHALATIO N RX; PER 30 DAYS ALBUTEROL J7620 YOUR YOUR TO 2.5 4 PHARMACY PHARMACY [facility] [employer] IPRATROPI UM BROM TO 0.5 MG [facility] G0463 ROSS HAWKINS OUTPATIEN 4 [facility] T CLIN INC INC VISIT ASSESS & MGMT PT RADIOLOGI 03451 CLEO GALLO C EXAM 3 NOHEMI NOHEMI CHEST 2 VIEWS FRONTAL&L ATERAL ECG 13966 BREEZY TIJERINA ROUTINE 3 MATY MATY ECG W/LEAST 12 LDS I&R ONLY NONCOVERE A9270 [facility] D ITEM OR 3 [facility] SERVICE RADIOLOGI 36676 ROSS HAWKINS C 3 [facility] EXAMINATI INC INC ON CHEST SINGLE VIEW FRONTAL RHYTHM 69189 ROSS HAWKINS ECG 1-3 3 [facility] LEADS INC INC TRACING ONLY W/O I&R ECG 56066 BREEZY BREEZY ROUTINE 3 MATY MATY ECG W/LEAST 12 LDS I&R ONLY THER 38308 ROSS HAWKINS PROPH/DX 3 [facility] NJX IV INC INC PUSH SINGLE/1S T SBST/DRUG ECG 56349 ROSS HAWKINS ROUTINE 3 [facility] ECG INC INC W/LEAST 12 LDS TRCG ONLY W/O I&R PRESSURIZ 83771 ROSS ALANIZON ED/NONPRE 3 [facility] SSURIZED INC INC INHALATIO N TREATMENT PHRM Q0513 YOUR YOUR DISPENSIN 3 PHARMACY PHARMACY [facility] [employer] INHALATIO N RX; PER 30 DAYS ALBUTEROL J7620 YOUR YOUR TO 2.5 3 PHARMACY PHARMACY [facility] [employer] IPRATROPI UM BROM TO 0.5 MG DUP-SCAN 38665 ROSS ALANIZON LXTR 3 [facility] ART/ARTL INC INC BPGS COMPL BI STUDY SPMTRY 69705 ROSS ALANIZON W/VC 3 [facility] EXPIRATOR INC INC Y JG W/WO MXML VOL VNTJ RADEX HIP 86689 CLEO CLEO 3 NOHEMI NOHEMI UNILATERA L COMPLETE MINIMUM 2 VIEWS RADEX 94184 CLEO CLEO SPINE 3 NOHEMI NOHEMI LUMBOSACR AL MINIMUM 4 VIEWS 3D 40714 CLEO CLEO RENDERING 3 NOHEMI NOHEMI W/INTERP& POSTPROC DIFF WORK STATION CT THORAX 57633 ROSS HAWKINS W/O 3 [facility] CONTRAST INC INC MATERIAL ECG 49885 OSMAR PRASAD ROUTINE 3 III IRAIDA III IRAIDA ECG W/LEAST 12 LDS I&R ONLY RADIOLOGI 09044 CLEO CLEO C 3 NOHEMI NOHEMI [place]AMINATI [place] [address] CLEO CLEO HEAD/BRAI 3 NOHEMI NOHE[place] [address] CLEO CLEO RETROPERI 3 NOHEMI NOHEMI TONEAL REAL TIME W/IMAGE COMPLETE SBSQ 15374 JERROD ELDER NURSING 3 IZA IZA FACILITY CARE/DAY E/M STABLE 10 MIN SBSQ 66429 JERROD SPARROWSON NURSING 3 IZA IZA FACILITY CARE/DAY E/M STABLE 10 MIN RADIOLOGI 04516 CLEO CLEO C EXAM 3 NOHEMI NOHEMI CHEST 2 VIEWS FRONTAL&L ATERAL RADEX 69345 CLEO CLEO ABDOMEN 1 3 NOHEMI NOHEMI ANTEROPOS TERIOR VIEW SBSQ 10185 JERROD ELDER NURSING 3 IZA IZA FACILITY CARE/DAY E/M STABLE 10 [place] [address] CLEO CLEO ABDOMINAL 3 NOHEMI NOHEMI REAL TIME W/IMAGE DOCUMENTA TION US SOFT 84650 CLEO CLEO TISSUE 3 NOHEMI NOHEMI HEAD & NECK REAL TIME IMGE DOC RADIOLOGI 32089 CLEO CLEO C EXAM 3 NOHEMI NOHEMI CHEST 2 VIEWS FRONTAL&L ATERAL ECHO 27069 MCKEMIE MCKEMIE TTHRC R-T 3 JR IRAIDA JR IRAIDA 2D W/WOM-MOD E COMPL SPEC&COLR D RADIOLOGI 72510 ROSS HAWKINS C EXAM 3 [facility] CHEST 2 INC INC VIEWS FRONTAL&L ATERAL ECG 47852 JERROD ELDER ROUTINE 3 IZA IZA ECG W/LEAST 12 LDS W/I&R RADIOLOGI 31281 CORRIE CORRIE C 3 RHO RHO EXAMINATI ON CHEST SINGLE VIEW FRONTAL RADIOLOGI 96324 SAMSON SAMSON C 3 TIFFANIE TIFFANIE EXAMINATI ON CHEST SINGLE VIEW FRONTAL RADIOLOGI 42169 CORRIE CORRIE C 3 RHO RHO EXAMINATI ON CHEST SINGLE VIEW FRONTAL INTUBATIO 04391 JERONIMO DON N 3 ENDOTRACH EAL EMERGENCY PROCEDURE ECHO 41250 MERLENE MUB MERLENE MUB TTHRC R-T 3 2D W/WOM-MOD E COMPL SPEC&COLR D CRITICAL 43463 MOAMMAR MOAMMAR CARE 3 NASIMA NASIMA ILL/INJUR ED PATIENT INIT 30-74 MIN ECG 81108 JERONIMO DON ROUTINE 3 ECG W/LEAST 12 LDS I&R ONLY CRITICAL 06861 JERONIMO DON CARE 3 ILL/INJUR ED PATIENT ADDL [address] THORAX 13417 CLEO CLEO W/O 3 NOHEMI NOHEMI CONTRAST MATERIAL ECHO 06471 ANJUR-REANNA ANJUR-REANNA TTHRC R-T 3 ALI GOMEZ ALI GOMEZ 2D W/WOM-MOD E COMPL SPEC&COLR D ECG 34125 ANJUR-REANNA ANJUR-REANNA ROUTINE 3 ALI GOMEZ ALI GOMEZ ECG W/LEAST 12 LDS I&[place] [address] HAJIBRAHI HAJIBRAHI ABDOMEN & 3 M SARAH M SARAH PELVIS W/O CONTRAST MATERIAL RADIOLOGI 64181 LURDES LURDES C 3 ANASTACIA ANASTACIA EXAMINATI ON CHEST SINGLE VIEW FRONTAL ECG 82155 ALBERT IZA ALBERT IZA ROUTINE 3 ECG W/LEAST 12 LDS I&R ONLY ECG 79496 DELIA DELIA ROUTINE 3 MATY MATY ECG W/LEAST 12 LDS I&R ONLY RADIOLOGI 87203 WESTERFIE WESTERFIE C EXAM 3 LD IV A LD IV A CHEST 2 VIEWS FRONTAL&L ATERAL RADIOLOGI 74208 CLEO CLEO C 3 NOHEMI NOHEMI EXAMINATI ON CHEST SINGLE VIEW FRONTAL ECG 32897 JERROD ELDER ROUTINE 3 IZA IZA ECG W/LEAST 12 LDS I&R ONLY ECHO 03084 MCKEMIE MCKEMIE TTHRC R-T 3 JR IRAIDA JR IRAIDA 2D W/WOM-MOD E COMPL SPEC&COLR D CRITICAL 66439 BREEZY TIJERINA CARE 3 MATY MATY ILL/INJUR ED PATIENT INIT 30-74 MIN RADIOLOGI 34707 CLEO CLEO C 3 NOHEMI NOHEMI EXAMINATI ON CHEST SINGLE VIEW FRONTAL INTUBATIO 32684 BREEZY TIJERINA N 3 MATY MATY ENDOTRACH EAL EMERGENCY PROCEDURE ECG 81426 BREEZY TIJERINA ROUTINE 3 MATY MATY ECG W/LEAST 12 LDS I&R ONLY CRITICAL 45766 BREEZY TIJERINA CARE 3 MATY MATY ILL/INJUR ED PATIENT ADDL 30 MIN CONT 9671 ROSS HAWKINS INVASIVE 3 [facility] INC < 96 CONSECUTI VE HOURS INSERTION 9604 ROSS HAWKINS OF 3 [facility] ENDOTRACH INC INC EAL TUBE PHRM Q0513 YOUR YOUR DISPENSIN 3 PHARMACY PHARMACY [facility] [employer] [facility] INHALATIO N RX; PER 30 DAYS ALBUTEROL J7620 YOUR YOUR TO 2.5 3 PHARMACY PHARMACY [facility] [employer] [facility] IPRATROPI UM BROM TO 0.5 MG RADEX 70623 CLEO CLEO FOOT 3 NOHEMI NOHEMI COMPLETE MINIMUM 3 VIEWS INJECTION J1380 HARPEL HARPEL 3 STEFANIE STEFANIE ESTRADIOL VALERATE UP TO 10 MG THERAPEUT 17866 HARPEL HARPEL IC 3 STEFANIE STEFANIE PROPHYLAC TIC/DX INJECTION SUBQ/IM THERAPEUT 17581 HARPEL HARPEL IC 3 STEFANIE STEFANIE PROPHYLAC TIC/DX INJECTION SUBQ/IM INJECTION J1380 HARPEL HARPEL 3 STEFANIE STEFANIE ESTRADIOL VALERATE UP TO 10 MG ALBUTEROL J7620 YOUR YOUR TO 2.5 2 PHARMACY PHARMACY MG & I[place]ROP[place] [address] [place] [address] CLEO CLEO ANGIOGRAP 2 NOHEMI NOHEMI HY HEAD W/CONTRAS T/NONCONT RAST SLCTV 97126 FALLUJI FALLUJI CATHJ 1ST 2 MEME MEME 2ND ORD THRC/BRCH /CPHLC BRNCH ANGIOGRAP 88432 FALLUJI FALLUJI HY 2 MEME MEME CAROTID CERVICAL BILATERAL RS&I ECG 28813 ROSS HAWKINS ROUTINE 2 [facility] ECG INC INC W/LEAST 12 LDS TRCG ONLY W/O I&R ANGIOGRAP 55333 FALLUJI FALLUJI HY 2 MEME MEME CERVICOCE REBRAL CATHETER RS&I COLLECTIO 11313 ROSS ALANIZON N VENOUS 2 [facility] BLOOD INC INC VENIPUNCT URE COMPUTER- 01288 ROSS HAWKINS AIDED 2 [facility] DETECTION INC INC SCREENING MAMMOGRAP HY RADEX 17877 CLEO CLEO ESOPHAGUS 2 NOHEMI NOHEMI US SOFT 50099 CLEO CLEO TISSUE 2 NOHEMI NOHEMI HEAD & [place] [address] LARISA PERES RETROPERI 2 EMERGENCY EMERGENCY TONEAL SERVICES SERVICES REAL TIME W/IMAGE LIMITED COMPREHEN 09354 ROSS HAWKINS SIVE 2 [facility] METABOLIC INC INC PANEL RADIOLOGI 25508 CLEO CLEO C EXAM 2 NOHEMI NOHEMI CHEST 2 VIEWS FRONTAL&L ATERAL SCREENING G0202 ROSS HAWKINS 2 [facility] MAMMOGRAP INC INC HY HERNÁN INCL CAD WHEN PERFORMD BLOOD 35625 HARPEL HARPEL OCCULT 2 STEFANIE STEFANIE PEROXIDAS E ACTV QUAL FECES 1 DETER ADMN SET A7003 YOUR YOUR SM VOL 2 PHARMACY PHARMACY NONFILTR PNEUMAT NEBULIZR DISPBL ALBUTEROL J7620 YOUR YOUR TO 2.5 2 PHARMACY PHARMACY MG & IPRATROPI UM BROM TO 0.5 MG 3D 37767 CLEO CLEO RENDERING 2 NOHEMI NOHEMI W/INTERP& POSTPROC DIFF WORK STATION CT THORAX 87238 CLEO CLEO 2 NOHEMI NOHEMI W/CONTRAS T MATERIAL CT THORAX 16632 ROSS HAWKINS W/O 2 [facility] CONTRAST INC INC MATERIAL ADMN SET A7003 YOUR YOUR SM VOL 2 PHARMACY PHARMACY NONFILTR PNEUMAT NEBULIZR DISPBL ALBUTEROL J7620 YOUR YOUR TO 2.5 2 PHARMACY PHARMACY MG & IPRATROPI UM BROM TO 0.5 MG THERAPEUT 45857 HARPEL HARPEL IC 2 STEFANIE STEFANIE PROPHYLAC TIC/DX INJECTION SUBQ/IM THERAPEUT 88638 HARPEL HARPEL IC 2 STEFANIE STEFANIE PROPHYLAC TIC/DX INJECTION SUBQ/IM THERAPEUT 88848 HARPEL HARPEL IC 2 STEFANIE STEFANIE PROPHYLAC TIC/DX INJECTION SUBQ/IM THERAPEUT 83019 HARPEL HARPEL IC 2 STEFANIE STEFANIE PROPHYLAC TIC/DX INJECTION SUBQ/IM CATH PLMT 74145 FALLUJI FALLUJI L HRT & 2 MEEM MEME ARTS W/NJX & ANGIO IMG S&I ALBUTEROL J7620 YOUR YOUR TO 2.5 2 PHARMACY PHARMACY [facility] IPRATROPI UM BROM TO 0.5 MG THERAPEUT 52229 BRIJESH COLEY R IC 2 AZUL LIANG MD PROPHYLAC TIC/DX INJECTION SUBQ/IM APPLICATI 20000 ROSS HAWKINS ON 2 [facility] MODALITY INC INC 1/> AREAS HOT/COLD PACKS APPL 54263 ROSS HAWKINS MODALITY 2 [facility] 1/> AREAS INC INC ULTRASOUN D EA 15 MIN SPMTRY 18753 ROSS HAWKINS W/VC 2 [facility] EXPIRATOR INC INC Y JG W/WO MXML VOL VNTJ E-STIM G0283 ROSS HAWKINS 1/> AREAS 2 [facility] OTH THAN INC INC WND CARE PART TX PLAN CT THORAX 10961 ROSS HAWKINS W/O 2 [facility] CONTRAST INC INC MATERIAL E-STIM G0283 ROSS HAWKINS 1/> AREAS 2 [facility]OS[facility] OTH THAN INC INC WND CARE PART TX PLAN ECHO 42556 ROSS HAWKINS TTHRC R-T 2 [facility] 2D INC INC W/WOM-MOD E COMPL SPEC&COLR D APPL 41862 ROSS HAWKINS MODALITY 2 [facility] 1/> AREAS INC INC ULTRASOUN D EA 15 MIN APPLICATI 76381 ROSS HAWKINS ON 2 [facility] MODALITY INC INC 1/> AREAS HOT/COLD PACKS THERAPEUT 65931 AZUL ANDINOPEL IC 2 STEFANIE STEFANIE PROPHYLAC TIC/DX INJECTION SUBQ/IM PHYSICAL 14804 ROSS HAWKINS THERAPY 2 [facility] EVALUATIO INC INC N THERAPEUT 84956 ROSS HAWKINS IC PX 1/> 2 [facility] AREAS INC INC EACH 15 MIN EXERCISES 3D 47295 ROSS HAWKINS RENDERING 2 [facility] INC INC W/INTERP& POSTPROC DIFF WORK STATION DUPLEX 21815 ROSS HAWKINS SCAN 2 [facility] EXTRACRAN INC INC IAL ART COMPL BI STUDY XTRNL ECG 05703 JERROD SPARROWSON 2 IZA IZA CONTINUOU S RHYTHM W/I&R UP TO 48 HRS EXTERNAL 75199 ROSS ALANIZON ECG 2 [facility] INC ANALYSIS REPORT XTRNL ECG 06577 ROSS HAWKINS & 48 HR 2 [facility] RECORDING INC INC THERAPEUT 11780 BRIJESH COLEY R IC 2 AZUL LIANG MD PROPHYLAC TIC/DX INJECTION SUBQ/IM ALBUTEROL J7620 YOUR YOUR TO 2.5 2 PHARMACY PHARMACY MG & [facility] LLC IPRATROPI UM BROM TO 0.5 MG ADMN SET A7003 YOUR YOUR SM VOL [address] NON[address]TR [facility] PNEUMAT NEBULIZR DISPBL AREO MASK A7015 YOUR YOUR USED W/ 2 PHARMACY PHARMACY [facility]ME [facility] INJECTION J1380 BRIJESH LIANG 2 [facility] WATTS ESTRADIOL VALERATE UP TO 10 MG INJECTION J1380 BRIJESH LIANG 2 AZUL PALMER STEFANIE ESTRADIOL VALERATE UP TO 10 MG 3D 03377 ROSS HAWKINS RENDERING 1 [facility]OS[facility] INC INC W/INTERP& POSTPROC DIFF WORK STATION CT THORAX 13746 ROSS HAWKINS W/O 1 [facility] CONTRAST INC INC MATERIAL 3D 50008 BALDEV CLEO RENDERING 1 MEDICAL NOHEMI W/INTERP IMAGING & ASS POSTPROCE SS SUPERVISI ON MRI 73044 [facility] CLEO SPINAL 1 MEDICAL NOHEMI CANAL IMAGING LUMBAR ASS W/O CONTRAST MATERIAL ADMN SET A7003 YOUR YOUR SM VOL 1 PHARMACY PHARMACY NONFILTR [employer] [facility] PNEUMAT NEBULIZR DISPBL ALBUTEROL J7620 YOUR YOUR TO 2.5 1 PHARMACY PHARMACY [facility] [employer] [facility] IPRATROPI UM BROM TO 0.5 MG AREO MASK A7015 YOUR YOUR USED W/ 1 PHARMACY PHARMACY [employer] COMPUTER- 56578 [facility] AIDED 1 MEDICAL MEDICAL DETECTION IMAGING IMAGING DX ASS ASS MAMMOGRAP HY NEBULIZER E0570 DAREK OSWALD WITH 1 HOME [facility] R EQUIPME EQUIPME NEBULIZER E0570 DAREK OSWALD WITH 1 HOME [facility] R EQUIPME EQUIPME INSJ 54721 ROSS GILES NON-NDWEL 1 [facility] BLADDER P CATHETER CT THORAX 11345 [place] CLEO W/O 1 MEDICAL NOHEMI CONTRAST IMAGING MATERIAL ASS INJECTION J1380 BRIJESH LIANG 1 AZUL WATTS ESTRADIOL VALERATE UP TO 10 MG 3D 38738 [place] CLEO RENDERING 1 MEDICAL NOHEMI IMAGING W/INTERP& ASS POSTPROC DIFF WORK STATION ECG 94532 ROSS HAWKINS ROUTINE 1 [facility] ECG INC INC W/LEAST 12 LDS TRCG ONLY W/O I&R REPAIR C1771 ROSS HAWKINS DEVICE 1 [facility] URINARY INC INC INCONTINE NCE W/SLING GRAFT ECG 67268 ROSS ELDER ROUTINE 1 [facility] W/LEAST P 12 LDS I&R ONLY SLING 81492 ROSS HAWKINS OPERATION 1 [facility] [place] [address] ROSS HAWKINS INFUSION 1 MEM [facility] THERAPY INC INC PROPHYLAX IS/DX EA HOUR ANES 57812 [facility] ANESTH MARIJA TONEAL OF THE LWR ABD BLUE W/URINARY TRACT NOS PRESSURIZ 44832 ROSS HAWKINS ED/NONPRE 1 [facility] SSURIZED [place] [address] ROSS HAWKINS INFUSION 1 [facility] THERAPY/P INC INC ROPHYLAXI S /DX 1ST TO 1 HR URNLS DIP 39381 ROSS HAWKINS 1 [facility] STICK/TAB INC INC LET REAGENT AUTO MICROSCOP Y NEBULIZER E0570 DAREK OSWALD WITH 1 HOME [facility] R EQUIPME EQUIPME BASIC 94685 ROSS HAWKINS METABOLIC 1 [facility] PANEL INC INC CALCIUM TOTAL COLLECTIO 98757 ROSS HAWKINS N VENOUS 1 [facility] H[facility] BLOOD INC INC VENIPUNCT URE COMPREHEN 65204 ROSS HAWKINS SIVE 1 [facility] METABOLIC INC INC PANEL LIPID 54896 ROSS HAWKINS PANEL 1 [facility] INC INC BLOOD 69226 ROSS HAWKINS COUNT 1 [facility] COMPLETE INC INC AUTO&AUTO DIFRNTL WBC PHRM Q0513 YOUR YOUR DISPENSIN [address] [facility] [facility] INHALATIO N RX; PER 30 DAYS ALBUTEROL J7620 YOUR YOUR TO 2.5 1 [address] & [facility] IPRATROPI UM BROM TO 0.5 MG ADMN SET A7003 YOUR YOUR SM VOL 1 PHARMACY PHARMACY [facility] PNEUMAT NEBULIZR DISPBL INJECTION J1380 BRIJESH LIANG 1 [employer] WATTS ESTRADIOL VALERATE UP TO 10 MG NEBULIZER E0570 DAREK OSWALD WITH 1 HOME [facility] R EQUIPME EQUIPME URNLS DIP 12519 ROSS HAWKINS 1 [facility] STICK/TAB INC INC LET RGNT NON-AUTO W/O MICRSCP NEBULIZER E0570 DAREK OSWALD WITH 1 HOME [facility] R EQUIPME EQUIPME ADMN SET A7003 YOUR YOUR SM VOL 1 PHARMACY PHARMACY [facility] PNEUMAT NEBULIZR DISPBL AREO MASK A7015 YOUR YOUR USED W/ 1 PHARMACY PHARMACY [facility] CALCIUM 99409 ROSS HAWKINS TOTAL 1 [facility] INC INC 25 31476 ROSS HAWKINS HYDROXY 1 [facility] INCLUDES [place] [address] ROSS HAWKINS THYROID 1 [facility] STIMULATI [place] [address] ROSS HAWKINS THYROXINE 1 [facility] TOTAL INC INC CALCIUM 21029 ROSS HAWKINS IONIZED 1 [facility] INC INC COLLECTIO 13444 ROSS HAWKINS N VENOUS 1 [facility] BLOOD INC INC VENIPUNCT URE NEBULIZER E0570 DAREK OSWALD WITH 1 HOME MED HOME MED [facility]PRESSO EQUIP. L EQUIP. L R INJECTION J1380 BRIJESH LIANG 1 AZUL PALMER STEFANIE ESTRADIOL VALERATE UP TO 10 MG ALBUTEROL J7620 YOUR YOUR TO 2.5 1 PHARMACY PHARMACY MG & [facility] IPRATROPI UM BROM TO 0.5 MG ADMN SET A7003 YOUR YOUR SM VOL [address]TR [facility] PNEUMAT NEBULIZR DISPBL PHRM Q0513 YOUR YOUR DISPENSIN 1 PHARMACY PHARMACY G FEE [facility] INHALATIO N RX; PER 30 DAYS NEBULIZER E0570 DAREK OSWALD WITH 1 HOME MED HOME MED COMPRESSO EQUIP. L EQUIP. L R INJECTION J1380 BRIJESH LIANG MD STEFANIE ESTRADIOL VALERATE UP TO 10 MG NEBULIZER E0570 DAREK DAREK WITH 1 HOME MED HOME MED COMPRESSO EQUIP. L EQUIP. L R INJECTION J1380 BRIJESH LIANG MD STEFANIE ESTRADIOL VALERATE UP TO 10 MG COLLECTIO 86254 ROSS HAWKINS N VENOUS 1 [facility] BLOOD INC INC VENIPUNCT URE 3D 95079 ERENSaida CLEO RENDERING 1 MEDICAL NOHEMI IMAGING W/INTERP& [place] [address] ROSS HAWKINS UREA 1 [facility] NITROGEN INC INC QUANTITAT CLAUDE CT THORAX 27267 ERENSaida CLEO 1 MEDICAL NOHEMI W/CONTRAS IMAGING T ASS MATERIAL CREATININ 33880 ROSS HAWKINS E BLOOD 1 [facility] INC CALCIUM 19054 ROSSNIHARIKA ALANIZON TOTAL 1 [facility] CALCIUM 59251 ROSS ALANIZON IONIZED 1 [facility] NEBULIZER E0570 DAREK OSWALD WITH 1 HOME MED HOME MED COMPRESSO EQUIP. L EQUIP. L R INJECTION J1380 BRIJESH LIANG 1 [employer] WATTS ESTRADIOL VALERATE UP TO 10 MG THERAPEUT 48598 BRIJESH LIANG IC 1 [employer] WATTS PROPHYLAC TIC/DX INJECTION SUBQ/IM CALCIUM 02861 ROSS ROSS TOTAL 1 [facility] COLLECTIO 62021 ROSS HAWKINS N VENOUS 1 [facility] BLOOD [facility] [place] [address] ROSS HAWKINS FREE 1 [facility] THYROXINE [facility] [place] [address] ROSS HAWKINS THYROID 1 [facility] STIMULATI INC INC NG HORMONE TSH ADMN SET A7003 YOUR YOUR SM VOL 1 PHARMACY PHARMACY NONFILTR [employer] PNEUMAT NEBULIZR DISPBL ALBUTEROL J7620 YOUR YOUR TO 2.5 1 PHARMACY PHARMACY [facility] [employer] IPRATROPI UM BROM TO 0.5 MG PHRM Q0513 YOUR YOUR DISPENSIN 1 PHARMACY PHARMACY [facility] [employer] [facility] INHALATIO N RX; PER 30 DAYS NEBULIZER E0570 DAREK OSWALD WITH 1 HOME MED HOME MED COMPRESSO EQUIP. L EQUIP. L R HOSP[facility] 97308 [facility] DISCHARGE 1 DON DON DAY MANAGEMEN T 30 MIN/< ECG 06761 ROSS ELDER ROUTINE 1 [facility] W/LEAST P 12 LDS I&R ONLY INITIAL [address]10[address] [facility] 1 DON DON CARE/DAY 50 MINUTES ECG 94108 LARISA TIJERINA ROUTINE 1 EMERGENCY MATY ECG SERVICES W/LEAST 12 LDS I&R ONLY THERAPEUT 15355 BRIJESH LIANG IC 1 [facility] WATTS PROPHYLAC TIC/DX INJECTION SUBQ/IM INJECTION J1380 BRIJESH LIANG 1 [employer] [facility] ESTRADIOL VALERATE UP TO 10 MG NEBULIZER E0570 DAREK OSWALD WITH 1 HOME MED HOME MED COMPRESSO EQUIP. L EQUIP. L R INJECTION J0970 BRIJESH ANDINOPEL 0 [place] [facility] ESTRADIOL VALERATE UP TO 40 MG US BONE 22371 BRIJESH LIANG DENSITY 0 [facility] LALA & INTERP PERIPH ANY METHO COLLECTIO 31201 [facility] N VENOUS 0 [facility] BLOOD INC INC VENIPUNCT URE US SOFT 34661 [place] TISSUE 0 MEDICAL NOHEMI HEAD & IMAGING N[place] [address] [facility] HAWKINS FREE 0 [facility] [place] [address] ROSS HAWKINS THYROID 0 [facility] STIMULATI INC INC NG HORMONE TSH CALCIUM 54279 [facility]WK[facility] IONIZED 0 [facility] INC INC NEBULIZER E0570 DAREK OSWALD WITH 0 HOME MED HOME MED COMPRESSO EQUIP. L EQUIP. L R IADNA 87614 BIO BIO NEISSERIA 0 REFERNCE REFERNCE LABORATOR LABORATOR GONORRHOE IES IES AE AMPLIFIED PROBE TQ CYTP C/V 44749 BIO BIO AUTO THIN 0 REFERNCE REFERNCE LYR LABORATOR LABORATOR PREPJ SCR IES IES MNL RESCR PHYS IADNA 36508 BIO BIO CHLAMYDIA 0 REFERNCE REFERNCE LABORATOR LABORATOR TRACHOMAT IES IES IS AMPLIFIED PROBE TQ COMPUTER- 68479 [place] AIDED 0 [facility]ICAL NO[facility]MI DETECTION IMAGING ASS SCREENING MAMMOGRAP HY SCREENING G0202 [place] 0 MEDICAL NOHEMI MAMMOGRAP IMAGING HY HERNÁN ASS INCL CAD WHEN PERFORMD BLOOD 92144 [facility]WK[facility] COUNT 0 [facility] COMPLETE INC INC AUTO&AUTO DIFRNTL WBC COLLECTIO 38084 [facility]WK[facility] N VENOUS 0 [facility] BLOOD INC INC VENIPUNCT URE 3D 61073 ROSS HAWKINS RENDERING 0 [facility] INC W/INTERP& POSTPROC DIFF WORK STATION DUPLEX 96131 BALDEV GALLO SCAN 0 MEDICAL NOHEMI EXTRACRAN IMAGING IAL ART ASS COMPL BI STUDY CALCIUM 51296 ROSS HAWKINS TOTAL 0 [facility] INC CT THORAX 26939 BALDEV GALLO W/O 0 MEDICAL NOHE[facility] [place] [address] ROSS HAWKINS THYROID 0 [facility] STIMULATI [place] [address] ROSS HAWKINS FREE 0 [facility] [address] ROSS HAWKINS THYROID 0 [facility] INC NG HORMONE TSH NEBULIZER E0570 DAREK OSWALD WITH 0 HOME MED HOME MED COMPRESSO EQUIP. L EQUIP. L R ADMN SET A7003 DAREK OSWALD SM VOL 0 HOME MED HOME MED NONFILTR EQUIP. L EQUIP. L PNEUMAT NEBULIZR DISPBL XTRNL ECG 57052 ROSSNIHARIKA HAWKINS & 48 HR 0 [facility] INC PHARM G0333 YOUR YOUR DISPEN 0 PHARMACY PHARMACY [facility] [employer] [facility] RX; INITIAL 30-DAY SUPPLY ALBUTEROL J7620 YOUR YOUR TO 2.5 0 PHARMACY PHARMACY [facility] IPRATROPI UM BROM TO 0.5 MG COLLECTIO 14075 ROSS HAWKINS N VENOUS 0 [facility] BLOOD [facility] INC VENIPUNCT URE INJECTION J0970 BRIJESH LIANG 0 [place] [facility] ESTRADIOL VALERATE UP TO 40 MG [facility] 77244 [facility] DISCHARGE 0 DON DON DAY MANAGEMEN T 30 MIN/< SBSQ 46[address] [facility] 0 DON DON CARE/DAY [address] [facility] 0 DON DON CARE/DAY 25 MINUTES ECG 56174 ROSS VASQUEZ DWI ROUTINE 0 [facility] W/LEAST P 12 LDS I&R ONLY RHYTHM 56997 LARISA AGUILAR BAB ECG 1-3 0 [facility] SERVICES INTERPRET ATION & REPRT ON INITIAL 45275 [facility] 0 DON DON CARE/DAY 50 MINUTES INJECTION J0970 BRIJESH LIANG 0 [place] [facility] STEFANIE ESTRADIOL VALERATE UP TO 40 MG NON-INVAS 40346 [place] CLA[place]DE 0 MEDICAL NOHEMI PHYSIOLOG IMAGING IC STUDY ASS EXTREMITY 3 LEVLS N-INVAS 82300 [facility]WKINS PHYSIOLOG 0 [facility] IC STD INC INC LXTR ART COMPL BI ECHO 09497 [facility] TTHRC R-T 0 PHYSICIAN MEME 2D S GROUP W/WOM-MOD E COMPL SPEC&COLR D INJECTION J0970 BRIJESH ANDINOPEAdrian 0 [place] STEFANIE ESTRADIOL VALERATE UP TO 40 MG CYSTO 77272 [place] [facility] CALIBRATI 0 LTH SONDRA ON DILAT UROLOGY URTL PSC STRIX/[place] [address] ROSS ROSS INFUSION 0 [facility] THERAPY INC INC PROPHYLAX IS/DX EA HOUR ANES 31514 [facility] TRANSURET 0 ANESTH HRAL OF THE [place] [address] [facility] INFUSION 0 [facility] THERAPY/P INC INC ROPHYLAXI S /DX 1ST TO 1 HR DILAT 68639 [facility]WK[facility] FEMALE 0 [facility] URETHRA INC INC GENERAL/C NDJ SPINAL ANES INJECTION J0970 BRIJESH LIANG, 0 [place] ESTRADIOL VALERATE UP TO 40 MG URINALYSI 94791 BRIJESH LIANG, S 0 [place] MICROSCOP IC ONLY INJECTION J0970 BRIJESH LIANG 0 AZUL PALMER STEFANIE ESTRADIOL VALERATE UP TO 40 MG COLONOSCO 53254 Perla PHILLIPS PY FLX DX 0 JACQUELINE GONZALEZ W/ERIN PALMER PSC SPEC WHEN PFRMD URINALYSI 42622 BRIJESH LIANG, S 0 [place] MICROSCOP IC ONLY INJECTION J0970 BRIJESH LIANG, 0 [place] ESTRADIOL VALERATE UP TO [address] THORAX 41292 BALDEV LAURAUTCHER, W/O 0 MEDICAL CIRA CONTRAST IMAGING MATERIAL ASSOCIATE S 3D 75437 [facility] CLEO, RENDERING 0 MEDICAL CIRA IMAGING W/INTERP& ASSOCIATE POSTPROC S DIFF WORK STATION PLETHYSMO 19451 RODOL[facility] COHEN GRAPY TOT 0 MEDICAL PARI BDY I&R SERV ONLY [facility] PULMONARY 39306 [place] [facility] STRESS 0 PARI LOVING TESTING SERV SIMPLE [facility] CARBON 78840 [place] [facility] MONOXIDE 0 MEDICAL PARI DIFFW/CAP SERV FOUNDATIO BRNCDILAT 10536 [facility] RSPSE 0 [facility] SPMTRY INC INC PRE&POST- BRNCDILAT ADMN FUNCTIONA 57049 [facility]INS L 0 [facility] RESIDUAL INC INC CAPACITY OR RESIDUAL VOLUME DETER 68813 [facility] HAWKINS MALDISTRI 0 [facility] BJ OF INC INC INSPIRED GAS N WSHOT CURVE DETER 55992 [facility] HAWKINS AIRWY 0 [facility] CLOSING INC INC VOL 1 BRTH TSTS URINLS 50847 BRIJESH LIANG, DIP 0 [place] STICK/TAB LET REAGNT NON-AUTO MICRSCPY COMPLX 17485 BRIJESH LIANG CYSTOMETR 0 [place] O W/VOID PRESS & URETHRAL PROFIL SIMPLE 83393 BRIJESH LIANG UROFLOMET 0 [place] [place] RY URINLS 01571 BRIJESH LIANG, DIP 0 [place] STICK/TAB LET REAGNT NON-AUTO MICRSCPY INJECTION J0970 BRIJESH LIANG, 0 [place] ESTRADIOL VALERATE UP TO 40 MG INJECTION J0970 BRIJESH LIANG, 0 [place] ESTRADIOL VALERATE UP TO 40 MG RADIOLOGI 79633 Perla MOSLEY EXAM 0 MEDICAL CIRA CHEST 2 IMAGING VIEWS ASSOCIATE FRONTAL&L S ATERAL ECG 36647 ROSS JERROD, ROUTINE 0 [facility] W/LEAST PROF SERV 12 LDS I&R ONLY ECG 05197 ROSS ROSS ROUTINE 0 [facility] ECG INC INC W/LEAST 12 LDS TRCG ONLY W/O I&R PRESSURIZ 13131 ROSS ROSS ED/NONPRE 0 [facility] SSURIZED INC INC INHALATIO N TREATMENT INJECTION J0970 BRIJESH LIANG, 9 [place] ESTRADIOL VALERATE UP TO 40 MG INJECTION J0970 BRIJESH LIANG, 9 [place] ESTRADIOL VALERATE UP TO 40 MG IADNA 97471 [facility] 9 [facility] TRACHOMAT IS AMPLIFIED PROBE TQ CYTP C/V 48339 [facility] AUTO THIN 9 [facility] LYR PREPJ SCR MNL RESCR PHYS IADNA 97871 [facility] NEISS[place] 9 [facility] GONORRHOE AE AMPLIFIED PROBE TQ SCREENING 00782 [facility] HAWKINS 9 [facility] MAMMOGRAP INC INC HY BILATERAL COMPUTER- 95099 [facility] HAWKINS AIDED 9 [facility] DETECTION INC INC SCREENING MAMMOGRAP HY INJECTION J0970 Colt GRANT MD ESTRADIOL VALERATE UP TO 40 MG L HRT 66405 [facility] CODY OROSCOI 9 PHYSICIAN [place] DIANE S GROUP RETROGRAD E BRACHIAL PERQ I SI&R 65833 [facility] KWESI F/NJX PX 9 PHYSICIAN NADE[place] NYE S GROUP C-CATHJ PULM&/[place] [address] [facility] FALLUJI, C-CATHJ 9 PHYSICIAN [place]ADE[place] F/SLCTV C S GROUP ANGRPH I SI&R 44877 [facility] KWES[facility], F/NJX PX 9 PHYSICIAN [place] DURING S GROUP C-CATHJ VENTR&/AT R ANGRPH INJECTION 70170 [facility] KWESI, CARDIAC 9 PHYSICIAN NADEEM [place] CATHJ L S GROUP VENTR/[place] [address] [facility] PRASHANTHUDAYO, C-CATHJ 9 PHYSICIAN NADEEM [place] F/AORTOGR S GROUP APY ECG 94123 [place] MAYELA, ROUTINE 9 LEE Olguin C ECG CLINIC W/LEAST PSC 12 LDS I&R ONLY RADIOLOGI 72074 Perla MOSLEY EXAM 9 MEDICAL CIRA CHEST 2 IMAGING VIEWS ASSOCIATE FRONTAL&L S ATERAL RADIOLOGI 46773 ROS[facility] HAWKINS C EXAM 9 [facility] CHEST 2 INC INC VIEWS FRONTAL&L ATERAL COMPREHEN 18287 ROS[facility] HAWKINS SIVE 9 [facility] INC INC PANEL COLLECTIO 40285 ROSS HAWKINS N VENOUS 9 [facility] BLOOD INC INC VENIPUNCT URE BLOOD 37259 ROSS HAWKINS COUNT 9 [facility] COMPLETE INC INC AUTO&AUTO DIFRNTL WBC INJECTION J0970 BRIJESH LIANG, 9 [place] ESTRADIOL VALERATE UP TO [place] [address] ROS[facility] HAWKINS INFUSION 9 [facility] THERAPY INC INC PROPHYLAX IS/DX EA HOUR ECHO 57362 ROSS HAWKINS TRANSESOP 9 [facility] HAG R-T INC INC 2D W/PRB IMG ACQUISJ I&R DOP 59517 ROSS HAWKINS ECHOCARD 9 [facility] COLOR [place] [address] ROS[facility] HAWKINS INFUSION 9 [facility] THERAPY/P INC INC ROPHYLAXI S /DX 1ST TO 1 HR 3D 54376 AYO HARRINGTON 9 MEDICAL [place] P IMAGING W/INTERP& ASSOCIATE POSTPROC S DIFF WORK STATION CT THORAX 29752 [place] KAZ, 9 MEDICAL [place] P W/CONTRAS IMAGING T ASSOCIATE MATERIAL S RADIOLOGI 22844 [place] KAZ, C EXAM 9 MEDICAL [place] P CHEST 2 IMAGING VIEWS ASSOCIATE FRONTAL&L S ATERAL RADIOLOGI 11420 [place] CLEO, C EXAM 9 MEDICAL CIRA CHEST 2 IMAGING VIEWS ASSOCIATE FRONTAL&L S ATERAL ECHO 77886 [facility] K[facility]ES[facility] R-T 9 PHYSICIAN NADE[place] Simon GROUP W/WOM-MOD E COMPL SPEC&COLR D INJECTION J0970 Colt GRANT MD ESTRADIOL VALERATE UP TO 40 MG SEDIMENTA 41042 ROS[facility] HAWKINS TION RATE 9 [facility] RBC INC INC NON-AUTOM ATED CREATINE 73999 ROSS HAWKINS KINASE MB 9 [facility] FRACTION INC INC ONLY CREATINE 45743 [facility] KINASE 9 [facility] TOTAL INC INC ECG 72673 ROSS HAWKINS ROUTINE 9 [facility] ECG INC INC W/LEAST 12 LDS TRCG ONLY W/O I&R COMPREHEN 56774 ROSS HAWKINS SIVE 9 [facility] METABOLIC INC INC PANEL ECG 67083 LARISA CARBALLOEY, ROUTINE 9 EMERGENCY TIMOTHY S ECG SERVICES W/LEAST 12 LDS ASSOCIATE I&R ONLY S PRESSURIZ 68839 ROSS HAWKINS ED/NONPRE 9 [facility] SSURIZED INC INC INHALATIO N TREATMENT NATRIURET 80794 ROS[facility] HAWKINS IC 9 [facility] [place] [address] ROSS HAWKINS TROPONIN 9 [facility] QUANTITAT INC INC CLAUDE BLOOD 96216 ROSS HAWKINS COUNT 9 [facility] COMPLETE INC INC AUTO&AUTO DIFRNTL WBC INJECTION J0970 Colt GRANT MD ESTRADIOL VALERATE UP TO 40 MG RADIOLOGI 59125 PETRA LAMBERT C 9 DON R DON R EXAMINATI ON CHEST SINGLE VIEW FRONTAL INJECTION J0970 BRIJESH LIANG, 9 [place] ESTRADIOL VALERATE UP TO 40 MG OPHTHALMO 92885 TERENCE PRATT, FAUSTINOY 9 PARI YAÑEZ EXTENDED [...] ESTRADIOL VALERATE UP TO 40 MG RADIOLOGI 73654 [facility] FORREST EXAM 9 MEDICAL CIRA CHEST 2 IMAGING VIEWS ASSOCIATE FRONTAL&L S ATERAL BASIC 15066 ROS[facility] HAWKINS METABOLIC 9 [facility] [place] [address] ROSS HAWKINS THYROID 9 [facility] STIMULATI INC INC NG HORMONE TSH BLOOD 83882 ROS[facility] HAWKINS COUNT 9 [facility] COMPLETE INC INC AUTO&AUTO DIFRNTL WBC URNLS DIP 95055 [facility] HAWKINS 9 [facility] STICK/TAB INC INC LET REAGENT AUTO MICROSCOP Y LIPID 17825 ROSS HAWKINS PANEL 8 [place] [address] ROSS HAWKINS THYROID 8 [facility] STIMULATI INC INC NG HORMONE TSH COLLECTIO 03167 ROSS HAWKINS N VENOUS 8 [facility] BLOOD INC INC VENIPUNCT URE CALCIUM 92353 ROSS HAWKINS TOTAL 8 [facility] INC INC INJECTION J1040 PETRA LAMBERT 8 DON R DON R METHYLPRE DNISOLONE ACETATE 80 MG INJECTION J0970 BRIJESH LIANG, 8 [place] ESTRADIOL VALERATE UP TO 40 MG INJECTION J0970 BRIJESH LIANG, 8 [place] ESTRADIOL VALERATE UP TO 40 MG CYTP EVAL 66038 PATHOLOGY PATHOLOGY FINE 8 & & NEEDLE CYTOLOGY CYTOLOGY ASPIRATE LAB LAB INTERP & REPORT PUNCTURE 29753 [place] DANIEL MCCURDYO 8 MEDICAL [place] [address] [place] KAZ GUIDANCE 8 MEDICAL [place] P NEEDLE IMAGING PLACEMENT ASSOCIATE IMG S&I S US BREAST 86802 ROS[facility] HAWKINS REAL 8 [facility] TIME INC INC W/[place] NFS 99398 ROSS HAWKINS THER 8 [facility] PROPH/DX INC INC 1ST >1 HR IV NFUS 40180 [facility] HAWKINS THER 8 [facility] PROPH/DX INC INC EA HR SPECIAL 32026 PATHOLOGY PATHOLOGY STAIN 8 & & GROUP 1 CYTOLOGY CYTOLOGY MICROORGA LAB LAB NISMS I&R SPCL STN 81431 PATHOLOGY PATHOLOGY 2 I&R 8 & & EXCPT CYTOLOGY CYTOLOGY MICROORG/ LAB LAB ENZYME/IM CYT EGD 70836 [place] JENNIFER, TRANSORAL 8 [facility] BIOPSY SERV SINGLE/[place] [address] PATHOLOGY PATHOLOGY SURG 8 & & PATHOLOGY CYTOLOGY CYTOLOGY LAB LAB GROSS&MATY ROSCOPIC EXAM SIMPLE 84925 BRIJESH LIANG UROFLOMET 8 [place] RY URTL 66147 BRIJESH LIANG, PRESS 8 [place] PROFILE STDS COMPREHEN 59556 [facility] HAWKINS SIVE 8 [facility] METABOLIC INC INC PANEL BLADDER 37109 BRIJESH LIANG PRESSURE 8 [place] MEASUREME NT DURING FILLING US BREAST 04158 [facility]ida MCCURDY REAL 8 MEDICAL [place] P TIME IMAGING W/IMAGE ASSOCIATE DOCUMENTA S TION COLLECTIO 71539 ROSSNIHARIKA HAWKINS N VENOUS 8 [facility] BLOOD INC INC VENIPUNCT URE LIPID 16195 ROSS ROSS PANEL 8 [facility] [place] [address] ROSS HAWKINS TROPONIN 8 [facility] QUANTITAT INC INC CLAUDE BLOOD 93199 ROSS HAWKINS COUNT 8 [facility] COMPLETE INC INC AUTO&AUTO DIFRNTL WBC ECG 90320 ROSS HAWKINS ROUTINE 8 [facility] ECG INC INC W/LEAST 12 LDS TRCG ONLY W/O I&R BASIC 47852 ROSS HAWKINS METABOLIC 8 [facility] PANEL INC INC CALCIUM TOTAL RADIOLOGI 53006 ROSS HAWKINS C EXAM 8 [facility] CHEST 2 INC INC VIEWS FRONTAL&L ATERAL CREATINE 99299 ROSS HAWKINS KINASE 8 [facility] TOTAL INC INC CREATINE 98303 ROSS HAWKINS KINASE MB 8 [facility] FRACTION INC INC ONLY INJ J0702 PETRA LAMBERT BETAMETHA 8 XAVI [place] SONE ACETATE & PHOSPHATE 3 MG IAADIADOO 43899 PETRA LAMBERT, Susannah [place] STREPTOCO CCUS GROUP A SCR G0123 AMERIPATH AMERIPATH CYTOPATH 8 [facility] CERV/VAG INC INC SCR CYTOTECH UND PHYS SUPV INJECTION J0970 BRIJESH LIANG, 8 [place] ESTRADIOL VALERATE UP TO 40 MG CREATINE 66038 ROSS HAWKINS KINASE MB 8 [facility] FRACTION INC INC ONLY CREATINE 56677 ROSS HAWKINS KINASE 8 [facility] TOTAL INC INC FIBRIN 58469 ROSS HAWKINS DGRADJ 8 [facility] PRODUCTS INC INC D-DIMER QUAL/SEMI SYLWIA RADIOLOGI 43211 ROSS HAWKINS C EXAM 8 [facility] CHEST 2 INC INC VIEWS FRONTAL&L ATERAL BASIC 83931 ROSS HAWKINS METABOLIC 8 [facility] PANEL INC INC CALCIUM TOTAL ECG 81992 ROSS KYARASON, ROUTINE 8 [facility] ECG HOSPITAL W/LEAST PROF SERV 12 LDS I&R ONLY ECG 51802 ROSS HAWKINS ROUTINE 8 [facility] ECG INC INC W/LEAST 12 LDS TRCG ONLY W/O I&R BLOOD 81802 ROSS ALANIZON COUNT 8 [facility] COMPLETE INC INC AUTO&[place] [address] ROSS ALANIZON TROPONIN 8 [facility] QUANTITAT INC INC CLAUDE BLOOD 50121 ROSS HAWKINS COUNT 8 [facility] COMPLETE INC INC AUTO&AUTO DIFRNTL WBC ECG 85298 ROSS HAWKINS ROUTINE 8 [facility] ECG INC INC W/LEAST 12 LDS TRCG ONLY W/O I&R IV NFS 75099 ROSS HAWKINS THER 8 [facility] PROPH/DX INC INC 1ST >1 HR THER 05320 ROSS ROSS PROPH/DX 8 [facility] NJX EA INC INC SEQL IV PUSH SBST/DRUG ANESTHESI 54521 [facility] Chris SMITH ANESTH ROHAN L INTR[facility]I OF THE [place] LOWER ABD W/LAPS NOS INJECTION J2405 ROSS HAWKINS 8 [facility] ONDANSETR INC INC ON HCL PER 1 MG IV NFUS 83961 ROSS HAWKINS THER 8 [facility] PROPH/DX INC INC EA HR BASIC 74160 ROSS HAWKINS METABOLIC 8 [facility] PANEL INC INC CALCIUM TOTAL ENTEROLSS 85884 RAO FENTON 8 JR, JR, INTSTINAL ROSARIO F ROSARIO F ADHESION SPX LAPAROSCO 46478 ROSS HAWKINS PY 8 [facility] ENTEROLYS INC INC IS SEPARATE PROCEDURE INJECTION J0970 BRIJESH LIANG, Susannah [place] ESTRADIOL VALERATE UP TO 40 MG SCREENING 14463 ROS[facility] HAWKINS 8 [facility] MAMMOGRAP INC INC HY BILATERAL COMPUTER- [address] [facility] P DETECTION IMAGING ASSOCIATE SCREENING S MAMMOGRAP HY INJECTION J0970 BRIJESH LIANG, 8 [place] ESTRADIOL VALERATE UP TO 40 [place] NFS [address] ROSS HAWKINS THER 8 [facility] PROPH/DX INC INC 1ST >1 HR BASIC 33133 ROSS HAWKINS METABOLIC 8 [facility] PANEL INC INC CALCIUM TOTAL BLOOD 85393 ROSSNIHARIKA HAWKINS COUNT 8 [facility] COMPLETE INC INC AUTO&AUTO DIFRNTL WBC INJECTION J0970 BRIJESH LIANG, 8 [place] ESTRADIOL VALERATE UP TO 40 MG DOPPLER 51072 ROSS HAWKINS ECHOCARD 8 [facility] PULSE INC INC WAVE W/SPECTRA L DISPLAY ECHO 17657 ROSS HAWKINS TRANSTHOR 8 [facility] AC R-T 2D INC INC W/WO M-MODE REC COMP DOP 03943 ROSS ALANIZON ECHOCARD 8 [facility] COLOR INC INC FLOW VELOCITY MAPPING RADEX 25249 ROSS HAWKINS SMALL 8 [facility] INTESTINE INC INC W/MULTIPL E SERIAL IMAGES EXTERNAL 85868 ROSS HAWKINS ECG 8 [facility] SCANNING INC INC ANALYSIS REPORT XTRNL ECG 31014 ROSS HAWKINS & 48 HR 8 [facility] RECORDING INC INC INJECTION J1040 PETRA LAMBERT, 8 DON R DON R METHYLPRE DNISOLONE ACETATE 80 MG OPHTHALMO 55250 TERENCE PRATT, FAUSTINOY 8 PARI YAÑEZ EXTENDED RETINAL DRAWING I&R 1ST COLLECTIO 98753 [facility] N VENOUS [address] [place] [address] BLOOD VENIPUNCT URE L HRT 43050 [facility] CATHETERI [address] [place] [address] ZATION [place] [address] [facility] OROSCO C-CATH 8 HEART & NEZAR M F/SLCTV C VASCULAR ANGRPH ASSOC I SI&R 16643 [facility] F/NJX PX [address] [place] [address] DURING C-CATHJ VENTR&/AT R ANGRPH I SI&R 94023 [facility] F/NJX PX [address] [place] [address] DURING C-CATHJ PULM&/OR SELECT INJECTION 76792 [facility]ida FALLUJI, CARDIAC 8 HEART & NEZAR M CATHJ L VASCULAR VENTR/L ASSOC ATR ANGIOGRAP H INJECTION J2250 [address] [place] HCL PER 1 MG BLOOD [address] PLATELET AUTOMATED INJECTION J3010 [facility] FENTANYL [address] [place] [address] CITRATE 0.1 MG POTASSIUM [address] PLASMA/WH OLE BLOOD CREATININ 95519 [facility] E BLOOD [address] [place] [address] CHLORIDE 77832 [facility] BLD [address] [place] [address] B[address] [place] [address] [facility] UREA [address] [place] [address] NITROGEN QUANTITAT CLAUDE LOCM Q9967 [facility] 300-[address] [place] [address] MG/ML IODINE CONCENTRA TION PER ML SODIUM [address] PLASMA OR WHOLE BLOOD GLUCOSE [address] CLAUDE BLOOD XCPT REAGENT STRIP INTRDUCR/ C1894 [facility] SHEATH [address] [place] [address] NOT GUID INTRACARD EP NON-LASR INJECTION J0970 BRIJESH LIANG, 8 [place] ESTRADIOL VALERATE UP TO 40 MG RADEX 13672 [facility] MCCURDY, ABDOMEN 8 MEDICAL [place] Licea COMPL IMAGING W/DCBTS&/ ASSOCIATE ERC VIEWS S RADEX 85172 ROSS HAWKINS ABDOMEN 1 8 [facility] INC INC ANTEROPOS TERIOR VIEW SIMPLE 66160 BRIJESH [place] UROFLOMET 8 AZUL LIANG MD RY BLADDER 56002 BRIJESH [place] PRESSURE 8 AZUL LIANG MD MEASUREME NT DURING FILLING INJECTION J0970 BRIJESH [place] 8 AZUL LIANG MD ESTRADIOL VALERATE UP TO 40 MG ANES 98920 [facility] LOWER 8 ANESTH INTESTINE ANESTHESI OF THE A OF THE [place] ENDOSCOPY [place] [address] PATHOLOGY PATHOLOGY SURG 8 & & PATHOLOGY CYTOLOGY CYTOLOGY LAB LAB GROSS&MATY ROSCOPIC EXAM COLSC FLX 42818 ROSS ROSS W/RMVL 8 [facility] OF TUMOR INC [place] [address]95 ROSS ROSS THER 8 [facility] PROPH/DX INC INC 1ST >1 HR Encounters Encounter Start End Date Code Location Performer Type Date OFFICE 41279 [facility] HERR OUTPATIEN 7 7 PHYSICIAN T VISIT S GROUP 10 MINUTES [facility] ROSS - 7 7 [facility] OUTPATIEN INC T OFFICE 85872 NEPHROLOG AGUDELO OUTPATIEN 7 7 Y T VISIT ASSOCIATE 25 S OF BERRY MINUTES OFFICE 38659 ROSS GILES OUTPATIEN 7 7 [facility] 10 P [facility] ROSS - 7 7 [facility] OUTPATIEN INC T OFFICE 63785 [place] [facility] OUTPATIEN 7 7 MEDICAL T VISIT SERV 25 FOUNDATIO MINUTES N OFFICE 27751 [facility] LAM OUTPATIEN 7 7 NE HEALTH T VISIT MEDICAL 15 G MINUTES OFFICE 31325 [facility] OUTPATIEN 7 7 PHYSICIAN T VISIT S GROUP 15 MINUTES OFFICE 45747 NEPHROLOG AAMIR OUTPATIEN 7 7 Y T VISIT ASSOCIATE 25 S OF BERRY MINUTES OFFICE 98915 [facility] BREEZY OUTPATIEN 6 6 PHYSICIAN T VISIT S GROUP 25 MINUTES OFFICE 66384 [place] ZIMMERMAN OUTPATIEN 6 6 MEDICAL T NEW 20 SERV MINUTES FOUNDATIO N OFFICE 09989 NEPHROLOG TENA OUTPATIEN 6 6 Y T VISIT ASSOCIATE 25 S OF BERRY [facility] ROSS - 6 6 [facility] OUTPATIEN INC T OFFICE 45120 ROSS NETTIE OUTPATIEN [address] ROSS - 6 6 [facility] OUTPATIEN INC T OFFICE 21261 [facility] BREEZY OUTPATIEN 6 6 PHYSICIAN MATY T VISIT S GROUP 25 [facility] ROSS - 6 6 [facility] OUTPATIEN INC T EMERGENCY 50073 ROSS 6 6 [facility] DEPARTMEN [facility] T VISIT LIMITED/M INOR PROB OFFICE 79005 [facility] JACQUI BRUNSON OUTPATIEN 6 6 PHYSICIAN T VISIT S GROUP 15 MINUTES OFFICE 01332 [facility] OUTPATIEN 6 6 Y OF CK JOSE T VISIT [address] ROSS - 6 6 [facility] INPATIENT [facility] ROSS - 6 6 [facility] OUTPATIEN [facility] EMERGENCY 74272 ROSS 6 6 [facility] DEPARTMEN [facility] T VISIT LOW/MODER SEVERITY HOSPITAL ROSS - 6 6 [facility] OUTPATIEN INC [facility] ROSS - 6 6 [facility] OUTPATIEN INC [facility] ROSS - 6 6 [facility] OUTPATIEN INC [facility] ROSS - 6 6 [facility] OUTPATIEN INC [facility]OSP[facility] ROSS - 6 6 [facility] OUTPATIEN INC [facility] ROSS - 6 6 [facility] OUTPATIEN INC [facility] ROSS - 6 6 [facility] OUTPATIEN INC [facility] ROSS - 6 6 [facility] OUTPATIEN [facility] ROSS - 6 6 [facility] OUTPATIEN INC T OFFICE 57228 [facility] JACQUELINE-M OUTPATIEN 6 6 PHYSICIAN OGHADDAM T VISIT S GROUP 15 MINUTES HOSPITAL ROSS - 6 6 [facility] OUTPATIEN INC T HOSPITAL ROSS - 6 6 [facility] OUTPATIEN INC T EMERGENCY 38190 ROSS 6 6 [facility] DEPARTMEN INC T VISIT LOW/MODER SEVERITY OFFICE 49011 [facility] MariaKYTRI OUTPATIEN 6 6 Y OF CK JOSE T VISIT [place] 40 HOSPI MINUTES OFFICE 55889 ROSS GILES OUTPATIEN 6 6 [facility] SONDRA T VISIT [facility] 10 P MINUTES [facility]OSP[facility] ROSS - 6 6 [facility] T OFFICE 98071 [facility] BREEZY OUTPATIEN 6 6 PHYSICIAN MATY T VISIT S GROUP 15 MINUTES HOSPITAL ROSS - 6 6 [facility] INC T OFFICE 05465 NEPHROLOG AGUDELO OUTPATIEN 6 6 Y NABIL T VISIT ASSOCIATE 25 S OF BERRY MINUTES OFFICE 11624 [facility] JACQUI TOD OUTPATIEN 6 6 PHYSICIAN T VISIT S GROUP 10 MINUTES OFFICE 43845 [facility] HERR OUTPATIEN 6 6 PHYSICIAN FRANKIE T VISIT S GROUP 10 MINUTES [facility]OSPITAL ROSS - 6 6 [facility] T OFFICE 06085 [facility] HARPEL OUTPATIEN 6 6 PHYSICIAN STEFANIE T VISIT S GROUP 15 MINUTES OFFICE 21375 [facility] BREE[facility]Y OUTPATIEN 6 6 PHYSICIAN MATY T VISIT S GROUP 15 MINUTES [facility]OSPITAL ROSS - 6 6 [facility] OUT[facility] INC T EMERGENCY 55651 [facility] 6 6 [facility] DEPARTMEN INC T VISIT MODERATE SEVERITY [facility]OSPITAL ROSS - 6 6 [facility] ROSS - 6 6 [facility] INC T EMERGENCY 44568 ROSS 6 6 [facility] DEPARTMEN INC T VISIT LOW/MODER SEVERITY OFFICE 49520 [facility] JACQUI BRUNSON OUTPATIEN 6 6 PHYSICIAN T VISIT S GROUP 10 MINUTES HOSPITAL ROSS - 6 6 [facility] OUTPATIEN [facility] T OFFICE 26915 [facility] JACQUELINEMichael OUTPATIEN 6 6 PHYSICIAN LORRIAM T NEW 45 S GROUP [facility] ROSS [facility] 6 6 [facility] OUTPATIEN [facility] T EMERGENCY 53093 ROSS 6 6 [facility] T VISIT LOW/MODER SEVERITY OFFICE 74213 [facility] G[facility]ES OUTPATIEN 6 6 [facility] 15 P MINUTES HOSPITAL ROSS [facility] 6 6 [facility] OUTPATIEN [facility] T OFFICE 89845 ROSS LOWEKINS OUTPATIEN 6 6 [facility] 10 P [facility] CHAM[facility] - 6 6 [facility]OS[facility] T OFFICE 47285 NEPHROLOG AGUDELO OUTPATIEN 6 6 Y NABIL T VISIT ASSOCIATE 25 S OF BERRY [facility] 6 6 HOSPITAL OUTPATIEN T OFFICE 11073 [facility] HERR OUTPATIEN 6 6 PHYSICIAN FRANKIE T VISIT S GROUP 15 MINUTES OFFICE 11972 [facility]NOST[facility] DON OUTPATIEN 6 6 HEALTH STEFANIE T NEW 45 MEDICAL MINUTES GROUP OFFICE 47414 [facility] G[facility]ES OUTPATIEN 6 6 [facility] VISIT HOSPITAL 10 P MINUTES OFFICE 66527 [facility] CARMENZA OUTPATIEN 6 6 PHYSICIAN FRANKIE T VISIT S GROUP 15 MINUTES OFFICE 55677 NEPHROLOG NEEL OUTPATIEN 6 6 Y THO T NEW 60 ASSOCIATE MINUTES S OF BERRY OFFICE 99587 [facility] OUTPATIEN 6 6 MEDICAL JAM T VISIT SERV 15 FOUNDATIO MINUTES [facility] ROSS - 6 6 [facility] OUTPATIEN INC T EMERGENCY 03176 ROSS 6 6 [facility] DEPARTMEN INC T VISIT HIGH/URGE NT SEVERITY OFFICE 69454 [facility] G[facility]ES OUTPATIEN 6 6 [facility] T VISIT HOSPITAL 15 P [facility] ROSS [facility] 6 6 [facility] OUTPATIEN INC T OFFICE 01730 BRIJESH LIANG OUTPATIEN 6 6 [facility] T VISIT 15 MINUTES HOSPITAL ROSS - 6 6 [facility] OUTPATIEN INC T OFFICE 58469 [facility] PHYSICIAN STONE T VISIT S GROUP SALTY SOTELO 15 MINUTES [facility] ROSS - 5 5 [facility] OUTPATIEN INC T EMERGENCY 61765 ROSS 5 5 [facility] DEPARTMEN INC T VISIT LOW/MODER SEVERITY HOSPITAL ROSS - 5 5 [facility] OUTPATIEN INC [facility] ROSS [facility] 5 5 [facility] [facility] INC T OFFICE 63846 [facility] 5 5 [facility] T VISIT MEDICAL 15 G MINUT[facility] [address] [facility] [address] ROSS - 5 5 [facility] OUT[facility]IEN [facility] ROS[facility] - 5 5 [facility] ROS[facility] 5 5 [facility] ROS[facility] - 5 5 [facility] ROS[facility] - 5 5 [facility] T OFFICE 54810 [facility] LAUREN OUTPATIEN 5 5 PHYSICIAN STONE T VISIT S GROUP SALTY SOTELO 15 MINUTES [facility]OSPITAL ROSS - 5 5 [facility] ROSS - 5 5 [facility] ROSS - 5 5 [facility] ROSS - 5 5 [facility] T OFFICE 70722 CARMEN[facility] HERR OUTPATIEN 5 5 FRANKIE FRANKIE T VISIT 10 [facility] ROSS - 5 5 [facility] INC EMERGENCY 07130 ROSS TIJERINA 5 5 [facility] T VISIT P MODERATE SEVERITY EMERGENCY 05066 ROSS TIJERINA 5 5 [facility] T VISIT P MODERATE [facility]VERITY HOSPITAL ROSS - 5 5 [facility] ROSS - 4 4 [facility] ROSS - 4 4 [facility] ROSS - 4 4 [facility] INC T OFFICE 04914 [facility] JULIANPATIEN 4 4 PHYSICIAN T VISIT S GROUP 25 MINUTES [facility] ROSS - 4 4 [facility] ROSS - 4 4 [facility] T OFFICE 37727 BREEZY TIJERINA OUTPATIEN 4 4 [facility] 20 MINUT[facility] ROSS - 4 4 [facility] OUTPATIEN [facility] ROSS [facility] 4 4 [facility] OUTPATIEN [facility] ROSS - 4 4 [facility] OUTPATIEN [facility] ROSS [facility] 4 4 [facility] OUTPATIEN [facility] - 3 3 [facility] ROSS [facility] 3 3 [facility]IEN [facility] ROSS - 3 3 [facility] OUTPATIEN [facility] ROSS [facility] 3 3 [facility] OUTPATIEN [facility] ROSS - 3 3 [facility] OUTPATIEN [facility] ROSS [facility] 3 3 [facility] OUTPATIEN [facility] OFFICE 13005 MCKEMIE MCKEMIE OUTPATIEN 3 3 IRAIDA LOPEZ IRAIDA T VISIT 15 MINUTES EMERGENCY 76801 ALFARIS ALFARIS 3 3 [facility] T VISIT MODERATE SEVERITY HOSPITAL ROSS - 3 3 [facility] OUTPATIEN [facility] ROSS [facility] 3 3 [facility] INPATIENT [facility] OFFICE 71501 MCKEMIE MCKEMIE OUTPATIEN 3 3 IRAIDA IRAIDA NEW 30 MINUTES OFFICE 14458 PETTESaida PETTEY OUTPATIEN 3 3 AINSLEY SCHMITZ [facility] 30 MINUTES [facility] ROSS - 3 3 [facility] OUTPATIEN [facility] OFFICE 46226 KWESI ALFORDUDAYO OUTPATIEN 3 3 [facility] T VISIT 25 MINUTES HOSPITAL ROSS - 2 2 [facility] ROSS - 2 2 [facility] T [facility]OSPITAL ROSS - 2 2 [facility] INC T OFFICE 87488 CHAN LOWEKINS OUTPATIEN 2 2 SONDRA SONDRA T VISIT 5 MINUTES OFFICE 12848 HARPEL OUTPATIEN 2 2 STEFANIE T VISIT 5 MINUTES HOSPITAL ROSS - 2 2 [facility] ROSS [facility] 2 2 [facility] ROSS - 2 2 [facility] ROSS - 2 2 [facility] INC T OFFICE 35166 BRIJESH LIANG OUTPATIEN 2 2 AZUL PALMER STEFANIE T VISIT 5 MINUTES OFFICE 66185 ROSS OUTPATIEN 2 2 [facility] T VISIT INC 25 MINUTES HOSPITAL ROSS - 2 2 [facility] INC T OFFICE 58205 BRIJESH LIANG OUTPATIEN 2 2 AZUL PALMER STEFANIE T VISIT 5 MINUTES OFFICE 23399 BRIJESH LIANG OUTPATIEN 2 2 AZ[facility] WATTS T VISIT 5 MINUTES [facility]OSPITAL ROSS - 1 1 [facility] INC T OFFICE 37823 BRIJESH KAISERL OUTPATIEN 1 1 AZUL WATTS T VISIT 5 MINUTES HOSPITAL ROSS - 1 1 [facility] ROSS - 1 1 [facility] ROSS - 1 1 [facility] INC T OFFICE 96334 BRIJESH LIANG OUTPATIEN 1 1 AZUL WATTS T VISIT 5 MINUTES OFFICE 58566 ROSS GILES OUTPATIEN 1 1 [facility] VIS[facility]OSPITAL 25 P MINUTES OFFICE 54162 ROSS OUTPATIEN 1 1 [facility] T VISIT INC 25 MINUTES HOSPITAL ROSS - 1 1 [facility] OUTPAT[facility]EN [facility]PITAL ROSS - 1 1 [facility] OUTPATIEN [facility] OFFICE 83153 [facility] OUTPATIEN 1 1 PHYSICIAN MEME T VISIT S GROUP 25 MINUTES OFFICE 23607 BRIJESH LIANG OUTPATIEN 1 1 AZUL PALMER STEFANIE T VISIT 5 MINUTES OFFICE 55139 [facility]S GILES OUTPATIEN 1 1 [facility] 25 P MINUTES OFFICE 55812 BRIJESH LIANG OUTPATIEN 1 1 AZUL PALMER STEFANIE T VISIT 5 MINUTES OFFICE 67026 BRIJESH LIANG OUTPATIEN 1 1 AZUL PALMER STEFANIE T VISIT 5 MINUTES HOSPITAL ROSS - 1 1 [facility] OUTPATIEN [facility]PITAL ROSS - 1 1 [facility] OUTPATIEN [facility] OFFICE 51920 ROSS LOWEKINS OUTPATIEN 1 1 [facility] VISIT HOSPITAL 25 P MINUTES HOSPITAL ROSS - 1 1 [facility] INPATIENT [facility] EMERGENCY 59414 [facility] DEPT 1 1 EMERGENCY MATY VISIT SERVICES HIGH SEVERITY& THREAT FUN OFFICE 74015 Perla PHILLIPS OUTPATIEN 1 1 JACQUELINE SANCHEZ MD [facility] 25 MINUTES OFFICE 73138 BRIJESH LIANG OUTPATIEN 0 0 AZUL PALMER STEFANIE T VISIT 25 MINUTES HOSPITAL ROSS - 0 0 [facility] OUTPATIEN [facility] ROSS - 0 0 [facility]PAT[facility]EN [facility] ROSS - 0 0 [facility] OUTPATIEN [facility]PITAL ROSS [facility] 0 0 [facility] OUTPATIEN [facility] T OFFICE 88643 BRIJESH LIANG OUTPATIEN 0 0 [facility] [place] T VISIT 5 MINUTES EMERGENCY 69302 LARISA SOKADeshaun [facility] DEPT 0 0 EMERGENCY VISIT SERVICES HIGH SEVERITY& THREAT FUNCJ [facility] ROSS - 0 0 [facility] INPATIENT INC OFFICE 82742 [facility] OUTPATIEN 0 0 LTH SONDRA T VISIT UROLOGY 25 PSC MINUTES OFFICE 30004 BRIJESH LIANG OUTPATIEN 0 0 AZUL [place]TS T VISIT 5 MINUTES [facility] ROSS - 0 0 [facility] OUTPATIEN [facility] T OFFICE 32383 [facility] OUTPATIEN 0 0 LTH SONDRA T VISIT UROLOGY 25 PSC MINUTES OFFICE 50329 [facility] OUTPATIEN 0 0 LTH SONDRA T VISIT UROLOGY 25 PSC MINUTES OFFICE 10189 BRIJESH LIANG OUTPATIEN 0 0 AZ[facility] [place] T VISIT 5 MINUTES [facility] ROSS - 0 0 [facility] OUTPATIEN [facility] T OFFICE 02541 [facility] OUTPATIEN 0 0 LTH SONDRA T VISIT UROLOGY 25 PSC MINUTES OFFICE 51130 BRIJESH LIANG OUTPATIEN 0 0 AZUL COLEY R T VISIT 5 MINUTES OFFICE 90783 BRIJESH LIANG, OUTPATIEN 0 0 AZUL COELY R T VISIT 15 MINUTES OFFICE 82746 BRIJESH LIANG OUTPATIEN 0 0 [facility] W[place]TS T VISIT 5 MINUTES OFFICE 88869 IVANNA GILES, OUTPATIEN 0 0 LTH FLO D T NEW 30 UROLOGY MINUTES [facility] OFFICE 46756 BRIJESH LIANG OUTPATIEN 0 0 AWILDAL MD COLEY R T VISIT 15 MINUTES OFFICE 89549 BRIJESH LIANG OUTPATIEN 0 0 AWILDAL MD COLEY R T VISIT 15 MINUTES OFFICE 49057 BRIJESH LIANG OUTPATIEN 0 0 AWILDAL MD BRIJESH [place] T VISIT 5 MINUTES [facility]OSPITAL ROSS - 0 0 [facility] OUTPATIEN INC T OFFICE 06678 BRIJESH LIANG OUTPATIEN 0 0 [facility] [place] T VISIT 25 MINUTES HOSPITAL ROSS - 0 0 [facility] OUTPATIEN INC T OFFICE 38060 BRIJESH LIANG OUTPATIEN 0 0 [facility] [place] T VISIT 25 MINUTES OFFICE 08977 BRIJESH LIANG OUTPATIEN 0 0 [facility] [place] T VISIT 5 MINUTES EMERGENCY 45957 ROSS 0 0 [facility] DEPARTMEN INC T VISIT MODERATE SEVERITY EMERGENCY 20682 LARISA TIJERINA, 0 0 [facility] HIGH/URGE ASSOCIATE NT S SEVERITY HOSPITAL ROSS - 0 0 [facility] OUTPATIEN INC T EMERGENCY 74855 ROSS 0 0 [facility] DEPARTMEN INC T VISIT LOW/MODER SEVERITY EMERGENCY 37484 LARISA TIJERINA, 0 0 EMERGENCY [facility] SERVICES T VISIT HIGH/URGE ASSOCIATE NT S SEVERITY HOSPITAL ROSS - 0 0 [facility] OUTPATIEN INC T OFFICE 65069 BRIJESHLESLIE CASTILLO 9 9 [facility] [place] T VISIT 5 MINUTES OFFICE 89373 LESLIE GRANT 9 9 [facility] [place] T VISIT 40 MINUTES OFFICE 98440 JACQUELINE PHILLIPS CONSULTAT 9 9 , FLORECITA BERNABE ION NEW/ESTAB PATIENT 60 MIN HOSPITAL ROSS - 9 9 [facility] OUTPATIEN INC T EMERGENCY 80181 LARISA CARRASCO, 9 9 EMERGENCY [facility] DEPARTMEN SERVICES T VISIT MODERATE ASSOCIATE SEVERITY S OFFICE 07748 LESLIE GRANT 9 9 [facility] [place] T VISIT 5 MINUTES EMERGENCY 73252 LARISA TYLER, 9 9 EMERGENCY [facility] DEPARTMEN SERVICES T VISIT HIGH/URGE ASSOCIATE NT S SEVERITY EMERGENCY 29346 ROSS 9 9 [facility] DEPARTMEN INC T VISIT LOW/MODER SEVERITY HOSPITAL ROSS - 9 9 [facility] OUTPATIEN INC T OFFICE 08966 [facility] LESLIE OROSCO 9 9 PHYSICIAN NADEEM [place] T VISIT S GROUP 25 MINUTES HOSPITAL ROSS - 9 9 [facility] OUTPATIEN INC T OFFICE 38344 LESLIE GRANT 9 9 [facility] [place] T VISIT 5 MINUTES HOSPITAL ROSS - 9 9 [facility] OUTPATIEN INC T HOSPITAL ROSS - 9 9 [facility] OUTPATIEN INC T HOSPITAL ROSS - 9 9 [facility] OUTPATIEN INC T EMERGENCY 49771 LARISA AGUILAR, 9 9 EMERGENCY [facility] DEPARTMEN SERVICES O T VISIT HIGH/URGE ASSOCIATE NT S SEVERITY EMERGENCY 25312 ROSS 9 9 [facility] DEPARTMEN INC T VISIT LOW/MODER SEVERITY OFFICE 91035 PETRA LAMBERT OUTPATIEN 9 9 DON R DON R T VISIT 15 MINUTES EMERGENCY 50164 LARISA TIJERINA DEPT 9 9 EMERGENCY [facility] VISIT SERVICES HIGH SEVERITY& ASSOCIATE THREAT S [facility] ROSS - 9 9 [facility] OUTPATIEN INC T OFFICE 59094 JULIAN GRANTPATIDENNISE 9 9 [facility] [place] T VISIT 5 MINUTES EMERGENCY 86786 ROSS 9 9 [facility] DEPARTMEN INC T VISIT HIGH/URGE NT SEVERITY OFFICE 83538 BRIJESH LIANG OUTPATIDENNISE 9 9 [facility] [place] T VISIT 5 MINUTES HOSPITAL ROSS - 9 9 [facility] OUTPATIEN INC T EMERGENCY 44273 LARISA RUTLEDGE, 9 9 EMERGENCY [facility] DEPARTMEN SERVICES T VISIT MODERATE ASSOCIATE SEVERITY S EMERGENCY 29424 ROSS 9 9 [facility] DEPARTMEN INC T VISIT LIMITED/M INOR PROB OFFICE 41300 PETRA LAMBERT OUTPATIEN 9 9 DON R DON R T VISIT 15 MINUTES HOSPITAL ROSS - 9 9 [facility] OUTPATIEN INC T EMERGENCY 10966 ROSS 9 9 [facility] DEPARTMEN INC T VISIT LIMITED/M INOR PROB EMERGENCY 37488 LARISA MARROQUIN, 9 9 EMERGENCY ANY R DEPARTMEN SERVICES T VISIT MODERATE ASSOCIATE SEVERITY S OFFICE 81566 LESLIE BERTRAND 9 9 FABIENNE [place] T VISIT SERV 25 FOUNDATIO MINUTES OFFICE 56200 TERENCE PRATT OUTPATIEN 9 9 PARI YAÑEZ T VISIT 40 MINUTES OFFICE 83377 LESLIE GRANT 9 9 AZUL [place] R T VISIT 5 MINUTES OFFICE 81660 LESLIE GRANT 9 9 AZ[facility] [place] R T VISIT 5 MINUTES OFFICE 18011 LESLIE GRANT 9 9 AZUL CO[place] R T VISIT 5 MINUTES OFFICE 54654 PETRA LAMBERT OUTPATIEN 9 9 DON R DON R T VISIT 15 MINUTES OFFICE 48954 LESLIE GRANT 9 9 [facility] [place] T VISIT 5 MINUTES EMERGENCY 97378 JUSTINO TIJERINA, DEPT 9 9 [facility] VISIT CORPORATI HIGH ON SEVERITY& THREAT [facility] ROSS - 9 9 [facility] OUTPATIEN INC T EMERGENCY 16045 ROSS 9 9 [facility] DEPARTMEN INC T VISIT MODERATE SEVERITY HOSPITAL ROSS - 8 8 [facility] OUTPATIEN INC T OFFICE 45396 PETRA LAMBERT OUTPATIEN 8 8 DON R DON R T VISIT 15 MINUTES OFFICE 00249 PETRA LAMBERT OUTPATIEN 8 8 DON R DON R T VISIT 15 MINUTES OFFICE 88350 LESLIE GRANT 8 8 AZ[facility] CO[place] R T VISIT 5 MINUTES OFFICE 09105 LESLIE GRANT 8 8 [facility] [place] T VISIT 25 MINUTES OFFICE 61844 LESLIE OTOOLE 8 8 MEDICAL CLYDE T VISIT SERV 10 FOUNDATIO MINUTES OFFICE 25330 LESLIE GRANT 8 8 AZUL CO[place] R T VISIT 5 MINUTES OFFICE 89055 LESLIE GRANT 8 8 [facility] [place] T VISIT 25 MINUTES OFFICE 64216 PTERA LAMBERT OUTPATIEN 8 8 DON R DON R T VISIT 15 MINUTES HOSPITAL ROSS - 8 8 [facility] OUTPATIEN [facility] T HOSPITAL ROSS - 8 8 [facility] OUTPATIEN [facility] T OFFICE 20808 LESLIE LEMUS 8 8 MEDICAL GEN T NEW 30 SERV ER A MINUTES FOUNDATIO OFFICE 48944 [facility] 8 8 MEDICAL ANDER T VISIT SERV 25 FOUNDATIO MINUTES OFFICE 39610 PETRA LAMBERT OUTPATIEN 8 8 DON R DON R T VISIT 15 MINUTES HOSPITAL ROSS - 8 8 [facility] OUTPATIEN [facility]PITAL ROSS [facility] 8 8 [facility] OUTPATIEN [facility] T EMERGENCY 19572 ROSS 8 8 [facility] DEPARTMEN [facility] T VISIT HIGH/URGE NT SEVERITY OFFICE 11348 PETRA LAMBERT OUTPATIEN 8 8 DON R DON R T VISIT 15 MINUTES OFFICE 55347 LESLIE GRANT 8 8 [facility] [place] T VISIT 40 MINUTES OFFICE 15773 PETRA LAMBERT OUTPATIEN 8 8 DON R DON R T VISIT 15 MINUTES EMERGENCY 04387 ROSS 8 8 [facility] DEPARTMEN [facility] T VISIT MODERATE SEVERITY HOSPITAL ROSS - 8 8 [facility] OUTPATIEN [facility] T HOSPITAL ROSS [facility] 8 8 [facility] OUTPATIEN INC T OFFICE 55717 LESLIE GRANT 8 8 [facility] [place] T VISIT 5 MINUTES HOSPITAL ROSS - 8 8 [facility] OUTPATIEN INC T OFFICE 37373 ALLRAN ALLRAN OUTPATIEN 8 8 JR JOHN, T VISIT ROSARIO Mary 25 MINUTES OFFICE 53067 BRIJESH LIANG OUTPATI 8 8 [facility] [place] T VISIT 5 MINUTES OFFICE 24825 [facility] 8 8 FABIENNE ANDER T VISIT SERV 25 FOUNDATIO MINUTES OFFICE 54564 [facility] DON Dariana HURLEY R T VISIT 15 MINUTES EMERGENCY 38302 ROSS 8 8 [facility] DEPARTMEN [facility] T VISIT LOW/MODER SEVERITY HOSPITAL ROSS - 8 8 [facility] T HOSPITAL ROSS - 8 8 [facility] OUTPATIEN [facility] T EMERGENCY 17085 ROSS 8 8 [facility] DEPARTMEN INC T VISIT HIGH/URGE NT SEVERITY OFFICE 51826 ALLRAN ALLRAN OUTPATIEN 8 8 JR JOHN, T VISIT ROSARIO Mayr 15 MINUTES OFFICE 67797 ALLRAN ALLRAN OUTPATIEN 8 8 JR JOHN, T VISIT ROSARIO Mary 25 MINUTES HOSPITAL ROSS - 8 8 [facility] OUTPATIEN INC T OFFICE 58580 BRIJESH LIANG OUTPATI 8 8 [facility] [place] T VISIT 5 MINUTES HOSPITAL ROSS - 8 8 [facility]PAT[facility] T HOSPITAL ROSS - 8 8 [facility] INC T OFFICE 07448 TERENCE PRATT, CLARI 8 8 PARI MARSHALL/ESTAB PATIENT 80 MIN OFFICE 67378 [facility] 8 8 DON R DON R T VISIT 15 MINUTES HOSPITAL [facility] - 8 8 [facility] T OFF[facility] 13608 BRIJESH LIANG [facility] 8 8 AZUL Hassan VISIT 25 MINUTES [facility] 8 8 [facility] OUTPATIEN [facility] T OFFICE 16613 PETRA LAMBERT [facility] 8 8 DON R DON R T VISIT [address] [facility] 8 8 [facility] OUTPATIEN INC T OFFICE 60317 [facility] 8 FABIENNE WOR[place] T VISIT SERV 25 FOUNDATIO MINUTES
--- OUTSIDE RECORDS SUMMARY | 2017-04-05 22:36 | External Medical Summary Rpt ---
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 INC URNLS DIP 83613 [facility] HAWK[facility] 6 [facility] STICK/TAB INC INC [place] [address] ROSS HAWKINS ERYTHROPO 6 [facility] IETIN INC INC IRON 21121 ROSS HAWKINS BINDING 6 [facility] CAPACITY INC INC BLOOD 28466 ROS[facility]WK[facility] COUNT 6 [facility] RETICULOC INC INC YTE AUTOMATED CULTURE 49775 ROSS HAWKINS BACTERIAL 6 [facility] INC INC QU[place]TTAT[place] [address] ROSS HAWKINS FERRITIN 6 [facility] [place] [place] [address] ROSS HAWKINS IRON 6 [facility] INC INC COLLECTIO 82439 ROSS HAWKINS N VENOUS 6 [facility] [place] [address] ROSS HAWKINS RETROPERI 6 [facility] TONEAL INC [place] W/[place] [address] BALDEV BIRD RETROPERI 6 MEDICAL TONEAL IMAGING REAL TIME ASS W/IMAGE LIMITED RADEX 32250 BALDEV LAURAUTCHER RIBS 6 MEDICAL UNILATERA IMAGING L 2 VIEWS ASS RADEX 54719 ROSS HAWKINS RIBS UNI 6 [facility] W/POSTERO INC INC ANT CH MINIMUM 3 VIEWS RADEX 00103 BALDEV BIRD RIBS UNI 6 MEDICAL W/POSTERO IMAGING ANT CH ASS MINIMUM 3 VIEWS O2 CONC 1 E1390 DAREK OSWALD DEL PORT 6 HOME HOME 85%/>02 MEDICAL MEDICAL CONC AT EQUIPME EQUIPME PRSC FLW RATE PRTBLE E0431 DAREK RAMIREZRELL GASEOUS 6 HOME HOME O2 SYS MEDICAL MEDICAL RENT; EQUIPME EQUIPME FLWMTR HUMIDFR&M ASK RADIOLOGI 56824 BALDEV BIRD ALL C EXAM 6 MEDICAL CHEST 2 IMAGING VIEWS ASS FRONTAL&L ATERAL ECG 42456 ROSS ELDER ROUTINE 6 [facility] W/LEAST P 12 LDS I&R ONLY RADIOLOGI 56634 ROSS HAWKINS C EXAM 6 [facility] CHEST 2 INC INC VIEWS FRONTAL&L ATERAL PRESSURIZ 79458 ROSS HAWKINS ED/NONPRE 6 [facility] SSURIZED INC INC INHALATIO N TREATMENT PRTBLE E0431 DAREK RAMIREZRELL GASEOUS 6 HOME HOME O2 SYS MEDICAL MEDICAL RENT; EQUIPME EQUIPME FLWMTR HUMIDFR&M ASK O2 CONC 1 E1390 DAREK BELTRAN PORT 6 HOME HOME 85%/>02 MEDICAL MEDICAL CONC AT [facility] FLW RATE THERAPEUT 82664 ROSS HAWKINS IC 6 [facility] PROPHYLAC INC INC TIC/DX INJECTION SUBQ/IM THERAPEUT 10458 ROSS HAWKINS IC 6 [facility] PROPHYLAC INC INC TIC/DX INJECTION SUBQ/IM THERAPEUT 64368 ROS[facility] HAWKINS IC 6 [facility] PROPHYLAC INC INC TIC/DX INJECTION SUBQ/IM ALBUTEROL J7620 YOUR YOUR TO 2.5 6 PHARMACY PHARMACY [employer] IPRATROPI UM BROM TO 0.5 MG ADMN SET A7003 YOUR YOUR SM VOL 6 PHARMACY PHARMACY NONFIL [employer] [facility] PNEUMAT NEBULIZR DISPBL PHRM Q0513 YOUR YOUR DISPENSIN 6 PHARMACY PHARMACY G [employer]EE [employer] [facility] INHALATIO N RX; PER 30 DAYS THERAPEUT 65087 ROS[facility] HAWKINS IC 6 [facility] PROPHYLAC INC INC TIC/DX INJECTION SUBQ/IM THERAPEUT 77680 ROSS HAWKINS IC 6 [facility] PROPHYLAC INC INC TIC/DX INJECTION SUBQ/IM THERAPEUT 45979 ROSS HAWKINS IC 6 [facility] PROPHYLAC INC INC TIC/DX INJECTION SUBQ/IM THERAPEUT 00581 ROSS HAWKINS IC 6 [facility] PROPHYLAC INC INC TIC/DX INJECTION SUBQ/IM THERAPEUT 66420 ROSS HAWKINS IC 6 [facility] PROPHYLAC INC INC TIC/DX INJECTION SUBQ/IM THERAPEUT 77768 ROSS HAWKINS IC 6 [facility] PROPHYLAC INC INC TIC/DX INJECTION SUBQ/IM THERAPEUT 60764 ROSS HAWKINS IC 6 [facility] PROPHYLAC INC INC TIC/[place] INJECTION SUBQ/[place] [address] ROSS HAWKINS ABDOMINAL 6 [facility] REAL INC [place] TIME [place] [address] [place] ALL ABDOMINAL 6 MEDICAL REAL IMAGING TIME ASS W/IMAGE LIMITED COLLECTIO 16007 ROSS HAWKINS N VENOUS 6 [facility] BLOOD INC INC VENIPUNCT URE O2 CONC 1 E1390 DAREK MCGOWAN DEL PORT 6 HOME MAR 85%/>02 MEDICAL CONC AT [facility] FLW RATE CALCIUM 27888 ROSS HAWKINS IONIZED 6 [facility] INC INC PRTBLE E0431 DAREK MCGOWAN GASEOUS 6 HOME MAR O2 SYS MEDICAL RENT; EQUIPME FLWMTR HUMIDFR&M ASK URNLS DIP 62577 [facility] HAWKINS 6 [facility] STICK/TAB INC INC LET REAGENT AUTO MICROSCOP Y RENAL 45974 ROSS HAWKINS FUNCTION 6 [facility] PANEL INC INC NERVE 59213 ROSS HAWKINS CONDUCTIO 6 [facility] N STUDIES INC INC 5-6 STUDIES ADMN SET A7003 YOUR YOUR SM VOL 6 PHARMACY PHARMACY NONFILTR [employer] [facility] PNEUMAT NEBULIZR DISPBL ALBUTEROL J7620 YOUR YOUR TO 2.5 6 PHARMACY PHARMACY [employer] [facility] IPRATROPI UM BROM TO 0.5 MG AREO MASK A7015 YOUR YOUR USED W/ 6 PHARMACY PHARMACY [employer] PHR Q0513 YOUR YOUR DISPENSIN 6 PHARMACY PHARMACY [employer] INHALATIO N RX; PER 30 DAYS COLONOSCO 53814 ROS[facility] HAWKINS PY 6 [facility] W/BIOPSY INC INC SINGLE/MU LTIPLE ANES 05133 COMMUNITY FEEBACK LOWER 6 ANESTH REE INTESTINE OF THE [place] [address] ROSS HAWKINS SURG 6 [facility] PATHOLOGY INC INC GROSS&MATY ROSCOPIC EXAM O2 CONC 1 E1390 DAREKDONNA WU DEL PORT 6 HOME CHAGO 85%/>02 MEDICAL CONC AT [facility] FLW RATE PRTBLE E0431 DAREK WU GASEOUS 6 HOME CHAGO O2 SYS MEDICAL RENT; EQUIPME FLWMTR HUMIDFR&M ASK AREO MASK A7015 YOUR YOUR USED W/ 6 PHARMACY PHARMACY [employer] PHRM Q0513 YOUR YOUR DISPENSIN 6 PHARMACY PHARMACY G [employer] INHALATIO N RX; PER 30 DAYS ADMN SET A7003 YOUR YOUR SM VOL 6 PHARMACY PHARMACY NONFILTR [employer] PNEUMAT NEBULIZR DISPBL ALBUTEROL J7620 YOUR YOUR TO 2.5 6 PHARMACY PHARMACY [employer] IPRATROPI UM BROM TO 0.5 MG COMPREHEN 54500 [facility] HAWKINS SIVE 6 [facility] METABOLIC INC INC PANEL COLLECTIO 62123 ROSS HAWKINS N VENOUS 6 [facility] BLOOD INC INC VENIPUNCT URE EXTERNAL 46419 ROSS HAWKINS ECG 6 [facility] SCANNING [place] [address] ROSS HAWKINS PARATHORM 6 [facility] ONE INC INC 25 63005 ROSS HAWKINS HYDROXY 6 [facility] INCLUDES INC INC FRACTIONS IF PERFORMED XTRNL ECG 04443 ROSS HAWKINS & 48 HR 6 [facility] RECORDING INC INC ECG 13339 ROSS HAWKINS ROUTINE 6 [facility] ECG INC INC W/LEAST 12 LDS TRCG ONLY W/O I&R COMPREHEN 48816 ROSS HAWKINS SIVE 6 [facility] [place] [address] ROSS HAWKINS INFUSION 6 [facility] THERAPY/P INC INC ROPHYLAXI S /DX 1ST TO 1 HR URNLS DIP 29948 ROS[facility] HAWKINS 6 [facility] STICK/TAB INC INC [place] [address] ROSS HAWKINS TROPONIN 6 [facility] QUANTITAT INC INC CLAUDE ECG 27452 ROSS ELDER ROUTINE 6 [facility] W/LEAST P 12 LDS I&R ONLY ECG 67991 ROSS HAWKINS ROUTINE 6 [facility] ECG INC INC W/LEAST 12 LDS TRCG ONLY W/O I&R RADIOLOGI 92029 ROSS HAWKINS C EXAM 6 [facility] CHEST 2 INC INC VIEWS FRONTAL&L ATERAL O2 CONC 1 E1390 DAREK JUAN M DEL PORT 6 HOME MAR 85%/>02 MEDICAL CONC AT [facility] FLW RATE PRTBLE E0431 DAREK JUAN M GASEOUS 6 HOME MAR O2 SYS MEDICAL RENT; [facility] FLWMTR HUMIDFR&M ASK BLOOD 39562 ROSS HAWKINS COUNT 6 [facility] COMPLETE INC INC AUTO&AUTO DIFRNTL WBC BASIC 71587 ROSS HAWKINS METABOLIC 6 [facility] PANEL INC INC CALCIUM TOTAL ECG 17746 ROSS ROSS ROUTINE 6 [facility] ECG INC INC W/LEAST 12 LDS TRCG ONLY W/O I&R COLLECTIO 94470 ROSS HAWKINS N VENOUS 6 [facility] BLOOD INC INC VENIPUNCT URE ECG 45334 ROSS ELDER ROUTINE 6 [facility] W/LEAST P 12 LDS I&R ONLY ALBUTEROL J7620 YOUR YOUR TO 2.5 6 PHARMACY PHARMACY [employer] IPRATROPI UM BROM TO 0.5 MG ADMN SET A7003 YOUR YOUR SM VOL 6 PHARMACY PHARMACY NONFILTR [employer] [facility] PNEUMAT NEBULIZR DISPBL PHRM Q0513 YOUR YOUR DISPENSIN 6 PHARMACY PHARMACY [employer] INHALATIO N RX; PER 30 DAYS NONINVASI 33633 ROSS HAWKINS VE 6 [facility] EAR/PULSE INC INC OXIMETRY SINGLE DETER PRESSURIZ 74476 ROSS HAWKINS ED/NONPRE 6 [facility] SSURIZED INC INC INHALATIO N TREATMENT RADIOLOGI 36989 ROSS HAWKINS C EXAM 6 [facility] CHEST 2 INC INC VIEWS FRONTAL&L ATERAL O2 CONC 1 E1390 DAREK HEDRICK DEL PORT 6 HOME LISA 85%/>02 MEDICAL CONC AT [facility] FLW RATE URETHROCY 63620 BALDEV BIRD ALL STOGRAPHY 6 MEDICAL VOIDING IMAGING RS&I ASS LOCM Q9965 ROSS HAWKINS 100-199 6 [facility] MG/ML INC INC IODINE CONCENTRA TION PER ML PRTBLE E0431 DAREK HEDRICK GASEOUS 6 HOME LISA O2 SYS MEDICAL RENT; EQUIPME FLWMTR HUMIDFR&M ASK AREO MASK A7015 YOUR YOUR USED W/ 6 PHARMACY PHARMACY [employer] PHRM Q0513 YOUR YOUR DISPENSIN 6 PHARMACY PHARMACY G FEE [facility] INHALATIO N RX; PER 30 DAYS [...] MEDICAL RENT; EQUIPME FLWMTR HUMIDFR&M ASK MRI 15170 [facility] MAR SPINAL 6 RADIOLOGY CANAL ASSOC LUMBAR W/O CONTRAST MATERIAL MRI 42616 [facility] MAR SPINAL 6 [facility] THORACIC W/O CONTRAST MATRL DUP-SCAN [address] ART/ARTL MEDICAL BPGS G COMPL BI STUDY NON-INVAS [address] PHYSIOLOG MEDICAL IC STD G EXTREMITY ART 2 LEVEL NON-INVAS [address] PHYSIOLOG IC STD EXTREMITY ART 2 LEVEL DUP-SCAN 78647 NEPHROLOG NEEL ARTL JG 6 Y THO ABDL/PEL/ ASSOCIATE SCROT&/RP S OF BERRY R ORGN COM DUP-SCAN 49968 [facility] LXTR [address] [place] [address] ART/ARTL BPGS COMPL BI STUDY O2 CONC 1 E1390 DAREK ERLIN DEL PORT 6 HOME SHANNA 85%/>02 MEDICAL CONC AT EQUIPME PRSC FLW RATE PRTBLE E0431 DAREK KERN GASEOUS 6 HOME SHANNA O2 SYS MEDICAL RENT; EQUIPME FLWMTR HUMIDFR&M ASK LALA 45336 ROSS GILES POST-VOID 6 [facility] RESIDUAL P URINE&/[place] [address] ROSS HAWKINS LACTATE 6 [facility] INC INC CULTURE 41648 ROSS HAWKINS BACTERIAL 6 [facility] INC INC QUANTTATI VE COLONY COUNT URINE INJECTION J2405 ROSS MOLDOVAN 6 [facility] ESOTERIC ONDANSETR INC LABORATOR [place] [address] [place] [address] ROSS HAWKINS ABDOMEN & 6 [facility] PELVIS INC INC W/O CONTRAST MATERIAL CULTURE 31325 ROSS HAWKINS BACTERIAL 6 [facility] BLOOD INC INC AEROBIC W/ID ISOLATES BLOOD 89274 ROSS HAWKINS COUNT 6 [facility] COMPLETE INC INC AUTO&AUTO DIFRNTL WBC URNLS DIP 02550 ROSS DE SOUZA 6 [facility] LISY STICK/TAB INC LET REAGENT AUTO MICROSCOP Y THERAPEUT 53830 ROSS HAWKINS IC 6 [facility] INJECTION [place] [address] ROSS HAWKINS INFUSION 6 [facility] THERAPY/P INC INC ROPHYLAXI S /DX 1ST TO 1 HR SLCTV 81119 [facility] CATH 6 [facility] CAROTID/I MEDICAL NNOM ART G ANGIO XTRCRANL ART O2 CONC 1 E1390 DAREK [facility] DEL PORT 6 HOME IZA 85%/>02 MEDICAL CONC AT EQUIPME PRS FLW RATE PRTBLE E0431 [facility] GASE[facility] 6 HOME IZA O2 SYS MEDICAL RENT; [facility] FLWMDR HUMIDFR&M ASK KIDNEY 64526 [place] ALL IMG 6 MEDICAL MORPHOLOG IMAGING Y ASS VASCULAR FLOW 1 W/RX URNLS DIP 69191 ROSS GILES 6 [facility] LET RGNT P NON-AUTO W/O MICRSCP COLLECTIO 20265 ROSS HAWKINS N VENOUS 6 [facility] BLOOD [place] [address] ROSS HAWKINS FREE 6 [facility] [place] [address] ROSS HAWKINS THYROID 6 [facility] STIMULATI INC INC NG HORMONE TSH CALCIUM 63822 ROSS HAWKINS TOTAL 6 [facility] INC INC O2 CONC 1 E1390 DAREK BELTRAN PORT 6 HOME HOME 85%/>02 MEDICAL MEDICAL CONC AT EQUIPME [facility] FLW RATE PRTBLE E0431 DAREKDONNA OSWALD GASEOUS 6 HOME HOME O2 SYS MEDICAL MEDICAL RENT; EQUIPHI EQUIPHI FLWMTR HUMIDFR&[place] [address] ROSS HAWKINS INFUSION 6 [facility] THERAPY/P INC INC ROPHYLAXI S /DX 1ST TO [address] THORAX 61200 ROSS HAWKINS W/O 6 [facility] [place] [address] ROSS HAWKINS INFUSION 6 [facility] THERAPY INC INC PROPHYLAX IS/DX EA HOUR CTA ABDL 03727 [place] CLEO AORTA&BI 6 MEDICAL NOHEMI ILIOFEM IMAGING W/CONTRAS ASS T&POSTP DUPLEX 63631 ROSS HAWKINS SCAN 6 [facility] EXTRACRAN INC INC IAL ART COMPL BI STUDY O2 CONC 1 E1390 DAREK BELTRAN PORT 6 HOME SHANNA 85%/>02 MEDICAL CONC AT EQUIPME [facility] FLW RATE PRTBLE E0431 DAREK KERN GASEOUS 6 HOME SHANNA O2 SYS MEDICAL RENT; EQUIPME FLWMTR HUMIDFR&M ASK BLOOD 30871 ROSS HAWKINS COUNT 5 [facility] COMPLETE INC INC AUTO&AUTO DIFRNTL WBC COMPREHEN 98866 ROSS HAWKINS SIVE 5 [facility] METABOLIC INC INC PANEL RADIOLOGI 86087 ROSS HAWKINS C EXAM 5 [facility] CHEST 2 [...] PORT 5 HOME 85%/>02 MEDICAL CONC AT [facility] FLW RATE RADIOLOGI 99856 ROSS HAWKINS C EXAM 5 [facility] CHEST 2 INC INC VIEWS FRONTAL&L ATERAL ECG 75354 [facility] ROUTINE 5 [facility] NE [...] HOME HOME O2 SYS MEDICAL MEDICAL RENT; EQUIPHI EQUIPME FLWMTR HUMIDFR&M ASK O2 CONC 1 E1390 DAREK OSWALD DEL PORT 5 HOME HOME 85%/>02 MEDICAL MEDICAL CONC AT [facility] FLW RATE NONCOVERE A9270 [facility] ITEM OR 5 HOSPITAL HOSPITAL SERVICE NONCOVERE A9270 [facility] ITEM OR 5 HOSPITAL HOSPITAL SERVICE EPHYS 84576 [facility] LAMISaida TAYLOR EVAL 5 [facility] W/ABLATIO MEDICAL N G SUPRAVENT ARRHYTHMI A RADEX 79572 [place] BEINE ESOPHAGUS 5 MEDICAL ELISSA IMAGING ASS HEPATOBIL 87760 [place] CLEO IARY SYST 5 MEDICAL NOHEMI IMAGING IMAGING INCLUDING ASS GALLBLADD ER O2 CONC 1 E1390 DAREK O'IRA DEL PORT 5 HOME MOL 85%/>02 MEDICAL CONC AT [facility] FLW RATE PRTBLE E0431 DAREK O'IRA GASEOUS 5 HOME MOL O2 SYS MEDICAL RENT; EQUIPME FLWMTR HUMIDFR&M ASK XTRNL ECG 70316 ROSS ROSS & 48 HR 5 [facility] RECORDING INC INC XTRNL ECG [address] [facility] S RHYTHM P W/I&R UP TO 48 HRS ECG 06911 ROSS ELDER ROUTINE 5 [facility] W/LEAST P 12 LDS I&R ONLY ECHO 66895 ROSS HAWKINS TTHRC R-T 5 [facility] 2D INC INC W/WOM-MOD E COMPL SPEC&COLR D INSJ 41638 ROSS GILES NON-NDWEL 5 [facility] BLADDER P CATHETER RADIOLOGI 82673 [facility] ALL C EXAM 5 MEDICAL CHEST 2 IMAGING VIEWS ASS FRONTAL&[place] [address] [place] ALL TRACT UPR 5 MEDICAL W/SM INT IMAGING W/MULT ASS SERIAL IMAGES RADIOLOGI 16476 [place] ALL C 5 MEDICAL EXAMINATI IMAGING ON CHEST ASS SINGLE VIEW FRONTAL THERAPEUT 69711 ROSS HAWKINS IC 5 [facility] INJECTION INC INC IV PUSH EACH NEW DRUG PHRM Q0513 YOUR YOUR DISPENSIN 5 PHARMACY PHARMACY [employer] INHALATIO N RX; PER 30 DAYS ALBUTEROL J7620 YOUR YOUR TO 2.5 5 PHARMACY PHARMACY [employer] IPRATROPI UM BROM TO 0.5 MG [...] INCL CAD WHEN PERF; UNI US BREAST 97212 ROSS HAWKINS UNI REAL 5 [facility] TIME INC INC WITH IMAGE COMPLETE US BREAST 77013 [facility] UNI REAL 5 MEDICAL MEDICAL TIME IMAGING IMAGING WITH ASS ASS IMAGE LIMITED COLONOSCO 49625 [facility] JACQUI TOD PY 5 PHYSICIAN W/BIOPSY S GROUP SINGLE/MU LTIPLE EGD 89037 [facility] JACQUI TOD TRANSORAL 5 PHYSICIAN BIOPSY S GROUP SINGLE/[place] [address] ROSS HAWKINS INFUSION 5 [facility] THERAPY INC INC PROPHYLAX IS/DX EA HOUR O2 CONC 1 E1390 DAREK [place] PORT 5 HOME HOME 85%/>02 MEDICAL MEDICAL CONC AT EQUIPME EQUIPME PRSC FLW RATE PRTBLE E0431 DAREK OSWALD GASEOUS 5 HOME HOME O2 SYS MEDICAL MEDICAL RENT; EQUIPME EQUIPME FLWMTR HUMIDFR&M ASK LALA 99750 ROSS GILES POST-VOID 5 [facility] RESIDUAL P URINE&/BL ADDER CAP O2 CONC 1 E1390 DAREK [place]TRAN PORT 5 HOME HOME 85%/>02 MEDICAL MEDICAL CONC AT EQUIPME EQUIPME PRSC FLW RATE PRTBLE E0431 DAREK OSWALD GASEOUS 5 HOME HOME O2 SYS MEDICAL MEDICAL RENT; EQUIPME EQUIPME FLWMTR HUMIDFR&M ASK POLYSOM 56908 LEE XIE MAR 6/>YRS 5 SLEEP 4/> NEUROSCIE ADDL NCES CENT RERE ATTND POLYSOM 48121 ROSS HAWKINS 6/>YRS 5 [facility] SLEEP 4/> INC INC ADDL RERE ATTND PRTBLE E0431 DAREK OSWALD GASEOUS 5 HOME HOME O2 SYS MEDICAL MEDICAL RENT; EQUIPME EQUIPME FLWMTR HUMIDFR&M ASK O2 CONC 1 E1390 DAREK [place] PORT 5 HOME HOME 85%/>02 MEDICAL MEDICAL CONC AT EQUIPME [place] [address] [facility] CAR TAYLOR ACTIVTD 5 NE HEALTH ECG [...] AT EQUIPME EQUIPME PRSC FLW RATE THERAPEUT 06220 ROSS HAWKINS IC 5 [facility] PROPHYLAC INC INC TIC/DX INJECTION SUBQ/IM ECG 84967 ROSS VASQUEZ JR ROUTINE 5 [facility] W/LEAST P 12 LDS I&R ONLY RADIOLOGI 31769 [facility] CUR[facility] C EXAM 5 MEDICAL ELISSA CHEST [...] PER SESS TO 2 PER DAY DUP-SCAN 59667 ROSS HAWKINS LXTR 4 [facility] ART/ARTL INC INC BPGS COMPL BI STUDY XTRNL ECG 04339 ROSS HAWKINS & 48 HR 4 [facility] RECORDING INC INC EXTERNAL 93407 ROSS HAWKINS ECG 4 [facility] SCANNING INC INC ANALYSIS REPORT NON-INVAS 80657 ERENSaida CLEO CLAUDE 4 MEDICAL NOHEMI PHYSIOLOG IMAGING IC STUDY ASS EXTREMITY 3 LEVLS O2 CONC 1 E1390 DAREK BELTRAN PORT 4 HOME HOME 85%/>02 MEDICAL MEDICAL CONC AT EQUIPME EQUIPME PRSC FLW RATE PRTBLE E0431 DAREK DAREK GASEOUS 4 HOME HOME O2 SYS MEDICAL MEDICAL RENT; EQUIPME EQUIPME FLWMTR HUMIDFR&M ASK PHRM Q0513 YOUR YOUR DISPENSIN 4 PHARMACY PHARMACY [facility] INHALATIO N RX; PER 30 DAYS ALBUTEROL J7620 YOUR YOUR TO 2.5 4 PHARMACY PHARMACY [facility] IPRATROPI UM BROM TO 0.[address] THORAX 39602 ROSS HAWKINS W/O 4 [facility] CONTRAST INC INC MATERIAL O2 CONC 1 E1390 DAREK RAMIREZRELL DEL PORT 4 HOME HOME 85%/>02 MEDICAL MEDICAL CONC AT EQUIPME EQUIPME PRSC FLW RATE PRTBLE E0431 DAREK DAREK GASEOUS 4 HOME HOME O2 SYS MEDICAL MEDICAL RENT; EQUIPME EQUIPME FLWMTR HUMIDFR&M ASK PHRM Q0513 YOUR YOUR DISPENSIN 4 PHARMACY PHARMACY [facility] INHALATIO N RX; PER 30 DAYS ALBUTEROL J7620 YOUR YOUR TO 2.5 4 PHARMACY PHARMACY [facility] IPRATROPI UM BROM TO 0.5 MG O2 CONC 1 E1390 DAREK OSWALD DEL PORT 4 HOME HOME 85%/>02 MEDICAL MEDICAL CONC AT EQUIPME EQUIPME PRSC FLW RATE PRTBLE E0431 DAREK DAREK GASEOUS 4 HOME HOME O2 SYS MEDICAL MEDICAL RENT; EQUIPME EQUIPME FLWMTR HUMIDFR&M ASK INJECTION J0696 [facility] 4 PHYSICIAN PHYSICIAN CEFTRIAXO S GROUP S GROUP NE SODIUM PER 250 MG THERAPEUT 84784 [facility] IC 4 PHYSICIAN PHYSICIAN PROPHYLAC S GROUP S GROUP TIC/DX INJECTION SUBQ/IM THERAPEUT 20599 [facility] IC 4 PHYSICIAN PHYSICIAN PROPHYLAC S GROUP S GROUP TIC/DX INJECTION SUBQ/IM INJECTION J0696 [facility] 4 PHYSICIAN PHYSICIAN CEFTRIAXO S GROUP S GROUP NE SODIUM PER 250 MG INJECTION J1040 [facility] 4 PHYSICIAN PHYSICIAN METHYLPRE S GROUP S GROUP DNISOLONE ACETATE 80 MG ECG 48933 ROSS VASQUEZ JR ROUTINE 4 [facility] ECG HOSPITAL W/LEAST P 12 LDS I&R ONLY O2 CONC 1 E1390 DAREK OSWALD DEL PORT 4 HOME HOME 85%/>02 MEDICAL MEDICAL CONC AT EQUIPME EQUIPME PRSC FLW RATE PRTBLE E0431 DAREK OSWALD GASEOUS 4 HOME HOME O2 SYS MEDICAL MEDICAL RENT; EQUIPME EQUIPME FLWMTR HUMIDFR&M ASK RADIOLOGI 86843 [place] C EXAM 4 MEDICAL NOHEMI CHEST 2 IMAGING VIEWS ASS FRONTAL&L ATERAL DUP-SCAN 28929 ROSS HAWKINS XTR VEINS 4 [facility] INC INC UNILATERA L/LIMITED STUDY ECG 09981 ALFARIS ALFARIS ROUTINE 4 [facility] ECG W/LEAST 12 LDS I&R ONLY GAS 57782 ROSS HAWKINS DILUT/WAS 4 [facility] HOUT LUNG INC INC VOL W/WO DISTRIB VENT&V BRNCDILAT 10254 BESYISEL SPARROWSON RSPSE 4 IZA IZA SPMTRY PRE&POST- BRNCDILAT ADMN GAS 36084 BESSON BESSON DILUT/WAS 4 IZA IZA HOUT LUNG VOL W/WO DISTRIB VENT&[place] [address] BESSON BESSON DIFFUSING 4 IZA IZA CAPACITY APPL 85715 ROSS HAWKINS MODALITY 4 [facility] 1/> AREAS INC INC IONTOPHOR ESIS EA 15 MIN THERAPEUT 36127 ROSS HAWKINS IC PX 1/> 4 [facility] AREAS INC INC EACH 15 MIN EXERCISES APPL 52898 ROSS HAWKINS MODALITY 4 [facility] 1/> AREAS INC INC ULTRASOUN D EA 15 MIN E-STIM G0283 ROSS HAWKINS 1/> AREAS 4 [facility] OTH THAN INC INC WND CARE PART TX PLAN E-STIM G0283 ROSS HAWKINS 1/> AREAS 4 [facility] OTH THAN INC INC WND CARE PART TX PLAN APPL 62379 ROSS HAWKINS MODALITY 4 [facility] 1/> AREAS INC INC ULTRASOUN D EA 15 MIN APPL 27800 ROSS HAWKINS MODALITY 4 [facility] 1/> AREAS INC INC IONTOPHOR ESIS EA 15 MIN PHYSICAL 54253 ROSS HAWKINS THERAPY 4 [facility] EVALUATIO INC INC N LARGSC 16938 CARMENZA HERR EXC 4 FRANKIE FRANKIE OVI&/STRP G CORDS/EPI GL MCRSCP/TL SCP ESOPHAGOS 84089 CARMEN[facility] HERR COPY 4 FRANKIE FRANKIE FLEXIBLE GUIDE WIRE DILATION ECG 00974 [facility]INS ROUTINE 4 [facility] ECG INC INC W/LEAST 12 LDS TRCG ONLY W/O I&R RADEX 13504 ROSS HAWKINS ESOPHAGUS 4 [facility] INC INC RADIOLOGI 20458 ROSS HAKWINS C EXAM 4 [facility] CHEST 2 INC INC VIEWS FRONTAL&L ATERAL ALBUTEROL J7620 YOUR YOUR TO 2.5 4 PHARMACY PHARMACY [employer] IPRATROPI UM BROM TO 0.5 MG [facility] Q0513 YOUR YOUR DISPENSIN 4 PHARMACY PHARMACY [employer] INHALATIO N RX; PER 30 DAYS PHR Q0513 YOUR YOUR DISPENSIN 4 PHARMACY PHARMACY [employer] [facility] INHALATIO N RX; PER 30 DAYS ALBUTEROL J7620 YOUR YOUR TO 2.5 4 PHARMACY PHARMACY [employer] IPRATROPI UM BROM TO 0.5 MG [facility] G0463 ROSS HAWKINS OUTPATIEN 4 [facility] T CLIN INC INC VISIT ASSESS & MGMT PT RADIOLOGI 67285 CLEO GALLO C EXAM 3 NOHEMI NOHEMI CHEST 2 VIEWS FRONTAL&L ATERAL ECG 77962 BREEZY TIJERINA ROUTINE 3 MATY MATY ECG W/LEAST 12 LDS I&R ONLY NONCOVERE A9270 [facility] D ITEM OR 3 [facility] SERVICE RADIOLOGI 40853 ROSS HAWKINS C 3 [facility] EXAMINATI INC INC ON CHEST SINGLE VIEW FRONTAL RHYTHM 60187 ROSS HAWKINS ECG 1-3 3 [facility] LEADS INC INC TRACING ONLY W/O I&R ECG 35913 BREEZY BREEZY ROUTINE 3 MATY MATY ECG W/LEAST 12 LDS I&R ONLY THER 14749 ROSS HAWKINS PROPH/DX 3 [facility] NJX IV INC INC PUSH SINGLE/1S T SBST/DRUG ECG 63876 ROSS HAWKINS ROUTINE 3 [facility] ECG INC INC W/LEAST 12 LDS TRCG ONLY W/O I&R PRESSURIZ 36174 ROSS ALANIZON ED/NONPRE 3 [facility] SSURIZED INC INC INHALATIO N TREATMENT PHRM Q0513 YOUR YOUR DISPENSIN 3 PHARMACY PHARMACY [employer] INHALATIO N RX; PER 30 DAYS ALBUTEROL J7620 YOUR YOUR TO 2.5 3 PHARMACY PHARMACY [employer] IPRATROPI UM BROM TO 0.5 MG DUP-SCAN 98757 ROSS ALANIZON LXTR 3 [facility] ART/ARTL INC INC BPGS COMPL BI STUDY SPMTRY 66621 ROSS ALANIZON W/VC 3 [facility] EXPIRATOR INC INC Y JG W/WO MXML VOL VNTJ RADEX HIP 12962 CLEO CLEO 3 NOHEMI NOHEMI UNILATERA L COMPLETE MINIMUM 2 VIEWS RADEX 97218 CLEO CLEO SPINE 3 NOHEMI NOHEMI LUMBOSACR AL MINIMUM 4 VIEWS 3D 61193 CLEO CLEO RENDERING 3 NOHEMI NOHEMI W/INTERP& POSTPROC DIFF WORK STATION CT THORAX 09505 ROSS HAWKINS W/O 3 [facility] CONTRAST INC INC MATERIAL ECG 38701 OSMAR PRASAD ROUTINE 3 III IRAIDA III IRAIDA ECG W/LEAST 12 LDS I&R ONLY RADIOLOGI 99985 CLEO CLEO C 3 NOHEMI NOHEMI [place]AMINATI [place] [address] CLEO CLEO HEAD/BRAI 3 NOHEMI NOHE[place] [address] CLEO CLEO RETROPERI 3 NOHEMI NOHEMI TONEAL REAL TIME W/IMAGE COMPLETE SBSQ 16219 JERROD ELDER NURSING 3 IZA IZA FACILITY CARE/DAY E/M STABLE 10 MIN SBSQ 15609 JERROD SPARROWSON NURSING 3 IZA IZA FACILITY CARE/DAY E/M STABLE 10 MIN RADIOLOGI 23979 CLEO CLEO C EXAM 3 NOHEMI NOHEMI CHEST 2 VIEWS FRONTAL&L ATERAL RADEX 02159 CLEO CLEO ABDOMEN 1 3 NOHEMI NOHEMI ANTEROPOS TERIOR VIEW SBSQ 59184 JERROD ELDER NURSING 3 IZA IZA FACILITY CARE/DAY E/M ST[place] 10 [place] [address] CLEO CLEO ABDOMINAL 3 NOHEMI NOHEMI REAL TIME W/IMAGE DOCUMENTA TION US SOFT 10388 CLEO CLEO TISSUE 3 NOHEMI NOHEMI HEAD & NECK REAL TIME IMGE DOC RADIOLOGI 05191 CLEO CLEO C EXAM 3 NOHEMI NOHEMI CHEST 2 VIEWS FRONTAL&L ATERAL ECHO 80439 MCKEMIE MCKEMIE TTHRC R-T 3 JR IRAIDA JR IRAIDA 2D W/WOM-MOD E COMPL SPEC&COLR D RADIOLOGI 14193 ROSS HAWKINS C EXAM 3 [facility] CHEST 2 INC INC VIEWS FRONTAL&L ATERAL ECG 30442 JERROD ELDER ROUTINE 3 IZA IZA ECG W/LEAST 12 LDS W/I&R RADIOLOGI 81666 CORRIE CORRIE C 3 RHO RHO EXAMINATI ON CHEST SINGLE VIEW FRONTAL RADIOLOGI 92741 SAMSON SAMSON C 3 TIFFANIE TIFFANIE EXAMINATI ON CHEST SINGLE VIEW FRONTAL RADIOLOGI 18757 CORRIE CORRIE C 3 RHO RHO EXAMINATI ON CHEST SINGLE VIEW FRONTAL INTUBATIO 25919 JERONIMO DON N 3 ENDOTRACH EAL EMERGENCY PROCEDURE ECHO 27270 MERLENE MUB MERLENE MUB TTHRC R-T 3 2D W/WOM-MOD E COMPL SPEC&COLR D CRITICAL 71354 MOAMMAR MOAMMAR CARE 3 NASIMA NASIMA ILL/INJUR ED PATIENT INIT 30-74 MIN ECG 35245 JERONIMO DON ROUTINE 3 ECG W/LEAST 12 LDS I&R ONLY CRITICAL 97280 JERONIMO DON CARE 3 ILL/INJUR ED PATIENT ADDL [address] THORAX 12980 CLEO CLEO W/O 3 NOHEMI NOHEMI CONTRAST MATERIAL ECHO 57069 ANJUR-REANNA ANJUR-REANNA TTHRC R-T 3 ALI GOMEZ ALI GOMEZ 2D W/WOM-MOD E COMPL SPEC&COLR D ECG 59629 ANJUR-REANNA ANJUR-REANNA ROUTINE 3 ALI GOMEZ ALI GOMEZ ECG W/LEAST 12 LDS I&[place] [address] HAJIBRAHI HAJIBRAHI ABDOMEN & 3 M SARAH M SARAH PELVIS W/O CONTRAST MATERIAL RADIOLOGI 95251 LURDES LURDES C 3 ANASTACIA ANASTACIA EXAMINATI ON CHEST SINGLE VIEW FRONTAL ECG 53217 ALBERT IZA ALBERT IZA ROUTINE 3 ECG W/LEAST 12 LDS I&R ONLY ECG 25624 DELIA DELIA ROUTINE 3 MATY MATY ECG W/LEAST 12 LDS I&R ONLY RADIOLOGI 98893 WESTERFIE WESTERFIE C EXAM 3 LD IV A LD IV A CHEST 2 VIEWS FRONTAL&L ATERAL RADIOLOGI 73948 CLEO CLEO C 3 NOHEMI NOHEMI EXAMINATI ON CHEST SINGLE VIEW FRONTAL ECG 47616 JERROD ELDER ROUTINE 3 IZA IZA ECG W/LEAST 12 LDS I&R ONLY ECHO 78376 MCKEMIE MCKEMIE TTHRC R-T 3 JR IRAIDA JR IRAIDA 2D W/WOM-MOD E COMPL SPEC&COLR D CRITICAL 00155 BREEZY TIJERINA CARE 3 MATY MATY ILL/INJUR ED PATIENT INIT 30-74 MIN RADIOLOGI 07177 CLEO CLEO C 3 NOHEMI NOHEMI EXAMINATI ON CHEST SINGLE VIEW FRONTAL INTUBATIO 37437 BREEZY TIJERINA N 3 MATY MATY ENDOTRACH EAL EMERGENCY PROCEDURE ECG 33322 BREEZY TIJERINA ROUTINE 3 MATY MATY ECG W/LEAST 12 LDS I&R ONLY CRITICAL 43647 BREEZY TIJERINA CARE 3 MATY MATY ILL/INJUR ED PATIENT ADDL 30 MIN CONT 9671 ROSS HAWKINS INVASIVE 3 [facility] MECH VENT INC INC < 96 CONSECUTI VE HOURS INSERTION 9604 ROSS HAWKINS OF 3 [facility] ENDOTRACH INC INC EAL TUBE PHRM Q0513 YOUR YOUR DISPENSIN 3 PHARMACY PHARMACY [employer] INHALATIO N RX; PER 30 DAYS ALBUTEROL J7620 YOUR YOUR TO 2.5 3 PHARMACY PHARMACY [employer] IPRATROPI UM BROM TO 0.5 MG RADEX 81982 CLEO CLEO FOOT 3 NOHEMI NOHEMI COMPLETE MINIMUM 3 VIEWS INJECTION J1380 HARPEL HARPEL 3 STEFANIE STEFANIE ESTRADIOL VALERATE UP TO 10 MG THERAPEUT 00816 HARPEL HARPEL IC 3 STEFANIE STEFANIE PROPHYLAC TIC/DX INJECTION SUBQ/IM THERAPEUT 20764 HARPEL HARPEL IC 3 STEFANIE STEFANIE PROPHYLAC TIC/DX INJECTION SUBQ/IM INJECTION J1380 HARPEL HARPEL 3 STEFANIE STEFANIE ESTRADIOL VALERATE UP TO 10 MG ALBUTEROL J7620 YOUR YOUR TO 2.5 2 PHARMACY PHARMACY MG & I[place]ATROP[place] [address] [place] [address] CLEO CLEO ANGIOGRAP 2 NOHEMI NOHEMI HY HEAD W/CONTRAS T/NONCONT RAST SLCTV 07635 FALLUJI FALLUJI CATHJ 1ST 2 MEME MEME 2ND ORD THRC/BRCH /CPHLC BRNCH ANGIOGRAP 63469 FALLUJI FALLUJI HY 2 MEME MEME CAROTID CERVICAL BILATERAL RS&I ECG 10382 ROSS HAWKINS ROUTINE 2 [facility] ECG INC INC W/LEAST 12 LDS TRCG ONLY W/O I&R ANGIOGRAP 62230 FALLUJI FALLUJI HY 2 MEME MEME CERVICOCE REBRAL CATHETER RS&I COLLECTIO 59231 ROSS ALANIZON N VENOUS 2 [facility] BLOOD INC INC VENIPUNCT URE COMPUTER- 82515 ROSS HAWKINS AIDED 2 [facility] DETECTION INC INC SCREENING MAMMOGRAP HY RADEX 18292 CLEO CLEO ESOPHAGUS 2 NOHEMI NOHEMI US SOFT 48326 CLEO CLEO TISSUE 2 NOHEMI NOHEMI HEAD & [place] [address] LARISA PERES RETROPERI 2 EMERGENCY EMERGENCY TONEAL SERVICES SERVICES REAL TIME W/IMAGE LIMITED COMPREHEN 44060 ROSS HAWKINS SIVE 2 [facility] METABOLIC INC INC PANEL RADIOLOGI 55345 CLEO CLEO C EXAM 2 NOHEMI NOHEMI CHEST 2 VIEWS FRONTAL&L ATERAL SCREENING G0202 ROSS HAWKINS 2 [facility] MAMMOGRAP INC INC HY HERNÁN INCL CAD WHEN PERFORMD BLOOD 65898 HARPEL HARPEL OCCULT 2 STEFANIE STEFANIE PEROXIDAS E ACTV QUAL FECES 1 DETER ADMN SET A7003 YOUR YOUR SM VOL 2 PHARMACY PHARMACY NONFILTR PNEUMAT NEBULIZR DISPBL ALBUTEROL J7620 YOUR YOUR TO 2.5 2 PHARMACY PHARMACY MG & IPRATROPI UM BROM TO 0.5 MG 3D 36451 CLEO CLEO RENDERING 2 NOHEMI NOHEMI W/INTERP& POSTPROC DIFF WORK STATION CT THORAX 50349 CLEO CLEO 2 NOHEMI NOHEMI W/CONTRAS T MATERIAL CT THORAX 88197 ROSS HAWKINS W/O 2 [facility] CONTRAST INC INC MATERIAL ADMN SET A7003 YOUR YOUR SM VOL 2 PHARMACY PHARMACY NONFILTR PNEUMAT NEBULIZR DISPBL ALBUTEROL J7620 YOUR YOUR TO 2.5 2 PHARMACY PHARMACY MG & IPRATROPI UM BROM TO 0.5 MG THERAPEUT 82048 HARPEL HARPEL IC 2 STEFANIE STEFANIE PROPHYLAC TIC/DX INJECTION SUBQ/IM THERAPEUT 60342 HARPEL HARPEL IC 2 STEFANIE STEFANIE PROPHYLAC TIC/DX INJECTION SUBQ/IM THERAPEUT 70840 HARPEL HARPEL IC 2 STEFANIE STEFANIE PROPHYLAC TIC/DX INJECTION SUBQ/IM THERAPEUT 27668 HARPEL HARPEL IC 2 STEFANIE STEFANIE PROPHYLAC TIC/DX INJECTION SUBQ/IM CATH PLMT 88155 FALLUJI FALLUJI L HRT & 2 MEME MEME ARTS W/NJX & ANGIO IMG S&I ALBUTEROL J7620 YOUR YOUR TO 2.5 2 PHARMACY PHARMACY [employer] [facility] IPRATROPI UM BROM TO 0.5 MG THERAPEUT 88891 BRIJESH COLEY R IC 2 AZUL LIANG MD PROPHYLAC TIC/DX INJECTION SUBQ/IM APPLICATI 16598 ROSS HAWKINS ON 2 [facility] MODALITY INC INC 1/> AREAS HOT/COLD PACKS APPL 22883 ROSS HAWKINS MODALITY 2 [facility] 1/> AREAS INC INC ULTRASOUN D EA 15 MIN SPMTRY 02345 ROSS HAWKINS W/VC 2 [facility] EXPIRATOR INC INC Y JG W/WO MXML VOL VNTJ E-STIM G0283 ROSS HAWKINS 1/> AREAS 2 [facility] OTH THAN INC INC WND CARE PART TX PLAN CT THORAX 51254 ROSS HAWKINS W/O 2 [facility] CONTRAST INC INC MATERIAL E-STIM G0283 ROSS HAWKINS 1/> AREAS 2 [facility] OTH THAN INC INC WND CARE PART TX PLAN ECHO 41864 ROSS HAWKINS TTHRC R-T 2 [facility] 2D INC INC W/WOM-MOD E COMPL SPEC&COLR D APPL 14282 ROSS HAWKINS MODALITY 2 [facility] 1/> AREAS INC INC ULTRASOUN D EA 15 MIN APPLICATI 23805 ROSS HAWKINS ON 2 [facility] MODALITY INC INC 1/> AREAS HOT/COLD PACKS THERAPEUT 18027 AZUL ANDINOPEL IC 2 STEFANIE STEFANIE PROPHYLAC TIC/DX INJECTION SUBQ/IM PHYSICAL 94374 ROSS HAWKINS THERAPY 2 [facility] EVALUATIO INC INC N THERAPEUT 41319 ROSS HAWKINS IC PX 1/> 2 [facility] AREAS INC INC EACH 15 MIN EXERCISES 3D 53911 ROSS HAWKINS RENDERING 2 [facility] INC INC W/INTERP& POSTPROC DIFF WORK STATION DUPLEX 18453 ROSS HAWKINS SCAN 2 [facility] EXTRACRAN INC INC IAL ART COMPL BI STUDY XTRNL ECG 38681 JERROD SPARROWSON 2 IZA IZA CONTINUOU S RHYTHM W/I&R UP TO 48 HRS EXTERNAL 38615 ROSS ALANIZON ECG 2 [facility] SCANNING INC INC ANALYSIS REPORT XTRNL ECG 47872 ROSS HAWKINS & 48 HR 2 [facility] RECORDING INC INC THERAPEUT 23280 BRIJESH COLEY R IC 2 AZUL LIANG MD PROPHYLAC TIC/DX INJECTION SUBQ/IM ALBUTEROL J7620 YOUR YOUR TO 2.5 2 PHARMACY PHARMACY MG & [facility] LLC IPRATROPI UM BROM TO 0.5 MG ADMN SET A7003 YOUR YOUR SM VOL 2 PHARMACY PHARMACY NONFILTR [facility] PNEUMAT NEBULIZR DISPBL AREO MASK A7015 YOUR YOUR USED W/ 2 PHARMACY PHARMACY [facility] INJECTION J1380 BRIJESH LIANG 2 AZUL WATTS ESTRADIOL VALERATE UP TO 10 MG INJECTION J1380 BRIJESH LIANG 2 AZUL PALMER STEFANIE ESTRADIOL VALERATE UP TO 10 MG 3D 12596 ROSS HAWKINS RENDERING 1 [facility] INC INC W/INTERP& POSTPROC DIFF WORK STATION CT THORAX 66202 ROSS HAWKINS W/O 1 [facility] CONTRAST INC INC MATERIAL 3D 20972 BALDEV CLEO RENDERING 1 MEDICAL NOHEMI W/INTERP IMAGING & ASS POSTPROCE SS SUPERVISI ON MRI 34379 [facility] SPINAL 1 MEDICAL NOHEMI CANAL IMAGING LUMBAR ASS W/O CONTRAST MATERIAL ADMN SET A7003 YOUR YOUR SM VOL 1 PHARMACY PHARMACY NONFILTR [employer] PNEUMAT NEBULIZR DISPBL ALBUTEROL J7620 YOUR YOUR TO 2.5 1 PHARMACY PHARMACY [employer] IPRATROPI UM BROM TO 0.5 MG AREO MASK A7015 YOUR YOUR USED W/ 1 PHARMACY PHARMACY [employer] COMPUTER- 73075 [facility] AIDED 1 MEDICAL MEDICAL DETECTION IMAGING IMAGING DX ASS ASS MAMMOGRAP HY NEBULIZER E0570 DAREK OSWALD WITH 1 HOME [facility]ICAL R EQUIPME EQUIPME NEBULIZER E0570 DARKE OSWALD WITH 1 HOME [facility] [employer] MEDICAL R EQUIPME EQUIPME INSJ 24085 ROSS GILES NON-NDWEL 1 [facility] BLADDER P CATHETER CT THORAX 57552 [place] CLEO W/O 1 MEDICAL NOHEMI CONTRAST IMAGING MATERIAL ASS INJECTION J1380 BRIJESH LIANG 1 AZUL WATTS ESTRADIOL VALERATE UP TO 10 MG 3D 24594 [place] CLEO RENDERING 1 MEDICAL NOHEMI IMAGING W/INTERP& ASS POSTPROC DIFF WORK STATION ECG 29706 ROSS HAWKINS ROUTINE 1 [facility] ECG INC INC W/LEAST 12 LDS TRCG ONLY W/O I&R REPAIR C1771 ROSS HAWKINS DEVICE 1 [facility] URINARY INC INC INCONTINE NCE W/SLING GRAFT ECG 26911 ROSS ELDER ROUTINE 1 [facility] W/LEAST P 12 LDS I&R ONLY SLING 30682 ROSS HAWKINS OPERATION 1 [facility] [place] [address] ROSS HAWKINS INFUSION 1 [facility] THERAPY INC INC PROPHYLAX IS/DX EA HOUR ANES 42721 [facility] ANESTH MARIJA TONEAL OF THE LWR ABD BLUE W/URINARY TRACT NOS PRESSURIZ 93587 ROSS HAWKINS ED/NONPRE 1 [facility] SSURIZED [place] [address] ROSS HAWKINS INFUSION 1 [facility] THERAPY/P INC INC ROPHYLAXI S /DX 1ST TO 1 HR URNLS DIP 68600 ROSS HAWKINS 1 [facility] STICK/TAB INC INC LET REAGENT AUTO MICROSCOP Y NEBULIZER E0570 DAREK OSWALD WITH 1 HOME HOME [facility] MEDICAL MEDICAL R EQUIPME EQUIPME BASIC 67232 ROSS HAWKINS METABOLIC 1 [facility] PANEL INC INC CALCIUM TOTAL COLLECTIO 34876 ROSS HAWKINS N VENOUS 1 [facility] BLOOD INC INC VENIPUNCT URE COMPREHEN 01874 ROSS HAWKINS SIVE 1 [facility] METABOLIC INC INC PANEL LIPID 11547 ROSS HAWKINS PANEL 1 [facility] INC INC BLOOD 27702 ROSS HAWKINS COUNT 1 [facility] COMPLETE INC INC AUTO&AUTO DIFRNTL WBC PHRM Q0513 YOUR YOUR DISPENSIN 1 PHARMACY PHARMACY G FEE [facility] INHALATIO N RX; PER 30 DAYS ALBUTEROL J7620 YOUR YOUR TO 2.5 1 PHARMACY PHARMACY & [facility] IPRATROPI UM BROM TO 0.5 MG ADMN SET A7003 YOUR YOUR SM VOL 1 PHARMACY PHARMACY [facility] PNEUMAT NEBULIZR DISPBL INJECTION J1380 BRIJESH LIANG 1 AZUL WATTS ESTRADIOL VALERATE UP TO 10 MG NEBULIZER E0570 DAREK OSWALD WITH 1 HOME [facility] [employer]ICAL R EQUIPME EQUIPME URNLS DIP 68843 ROSS HAWKINS 1 [facility] STICK/TAB INC INC LET RGNT NON-AUTO W/O MICRSCP NEBULIZER E0570 DAREK OSWALD WITH 1 HOME HOME [employer] [facility]ICAL R EQUIPME EQUIPME ADMN SET A7003 YOUR YOUR SM VOL 1 PHARMACY PHARMACY [facility] PNEUMAT NEBULIZR DISPBL AREO MASK A7015 YOUR YOUR USED W/ 1 PHARMACY PHARMACY [facility] CALCIUM 34138 ROSS HAWKINS TOTAL 1 [facility] INC INC 25 47770 ROSS HAWKINS HYDROXY 1 [facility] INCLUDES INC [place] [address] ROSS HAWKINS THYROID 1 [facility] STIMULATI [place] [address] ORSS HAWKINS THYROXINE 1 [facility] TOTAL INC INC CALCIUM 36060 ROSS HAWKINS IONIZED 1 [facility] INC INC COLLECTIO 34411 ROSS HAWKINS N VENOUS 1 [facility] BLOOD INC INC VENIPUNCT URE NEBULIZER E0570 DAREK OSWALD WITH 1 HOME MED HOME MED [employer]PRESS[employer] EQUIP. L EQUIP. L R INJECTION J1380 BRIJESH LIANG 1 AZUL PALMER STEFANIE ESTRADIOL VALERATE UP TO 10 MG ALBUTEROL J7620 YOUR YOUR TO 2.5 1 PHARMACY PHARMACY MG & [facility] IPRATROPI UM BROM TO 0.5 MG ADMN SET A7003 YOUR YOUR SM VOL 1 PHARMACY PHARMACY NONFILTR [facility] PNEUMAT NEBULIZR DISPBL PHRM Q0513 YOUR YOUR DISPENSIN 1 PHARMACY PHARMACY [employer] [facility] INHALATIO N RX; PER 30 DAYS [...] ESTRADIOL VALERATE UP TO 10 MG COLLECTIO 38095 ROSS HAWKINS N VENOUS 1 [facility] BLOOD INC INC VENIPUNCT URE 3D 97702 ERENSaida CLEO RENDERING 1 MEDICAL NOHEMI IMAGING W/INTERP& [place] [address] ROSS HAWKINS UREA 1 [facility] NITROGEN INC INC QUANTITAT CLAUDE CT THORAX 43357 ERENSaida CLEO 1 MEDICAL NOHEMI W/CONTRAS IMAGING T ASS MATERIAL CREATININ 03732 ROSS HAWKINS E BLOOD 1 [facility] INC CALCIUM 95626 ROSSNIHARIKA ALANIZON TOTAL 1 [facility] CALCIUM 86707 ROSS ALANIZON IONIZED 1 [facility] NEBULIZER E0570 DAREK OSWALD WITH 1 HOME MED HOME MED [employer]PRESSO EQUIP. L EQUIP. L R INJECTION J1380 BRIJESH LIANG 1 AZUL WATTS ESTRADIOL VALERATE UP TO 10 MG THERAPEUT 57192 BRIJESH LIANG IC 1 AZUL WATTS PROPHYLAC TIC/DX INJECTION SUBQ/IM CALCIUM 80769 ROSS ROSS TOTAL 1 [facility] COLLECTIO 37030 ROSS HAKWINS N VENOUS 1 [facility] BLOOD [facility] [place] [address] ROSS HAWKINS FREE 1 [facility] THYROXINE [facility] [place] [address] ROSS HAWKINS THYROID 1 [facility] STIMULATI INC INC NG HORMONE TSH ADMN SET A7003 YOUR YOUR SM VOL 1 PHARMACY PHARMACY NONFILTR [employer] PNEUMAT NEBULIZR DISPBL ALBUTEROL J7620 YOUR YOUR TO 2.5 1 PHARMACY PHARMACY MG & [employer] IPRATROPI UM BROM TO 0.5 MG PHRM Q0513 YOUR YOUR DISPENSIN 1 PHARMACY PHARMACY G [facility] [employer] INHALATIO N RX; PER 30 DAYS NEBULIZER E0570 DAREK OSWALD WITH 1 HOME MED HOME MED COMPRESSO EQUIP. L [facility]IP. [facility] [address] [facility] DISCHARGE 1 DON DON DAY MANAGEMEN T 30 MIN/< ECG 61637 ROSS ELDER ROUTINE 1 [facility] W/LEAST P 12 LDS I&R ONLY INITIAL 57754 [facility] SPALDING 1 DON DON CARE/DAY 50 MINUTES ECG 33760 LARISA TIJERINA ROUTINE 1 EMERGENCY MATY ECG SERVICES W/LEAST 12 LDS I&R ONLY THERAPEUT 61001 BRIJESH LIANG IC 1 [facility] WATTS PROPHYLAC TIC/DX INJECTION SUBQ/IM INJECTION J1380 BRIJESH LIANG 1 [employer] WATTS ESTRADIOL VALERATE UP TO 10 MG NEBULIZER E0570 DAREK OSWALD WITH 1 HOME MED HOME MED COMPRESSO EQUIP. L EQUIP. L R INJECTION J0970 BRIJESH ANDINOPEL 0 AZUL WATTS ESTRADIOL VALERATE UP TO 40 MG US BONE 71398 BRIJESH LIANG DENSITY 0 AZUL WATTS LALA & INTERP PERIPH ANY METHO COLLECTIO 17004 ROSS HAWKINS N VENOUS 0 [facility] BLOOD INC INC VENIPUNCT URE US SOFT 97863 [place]O TISSUE 0 MEDICAL NOHEMI HEAD & IMAGING [place] [address] ROSS HAWKINS FREE 0 [facility] [address] ROSS HAWKINS THYROID 0 [facility] STIMULATI INC INC NG HORMONE TSH CALCIUM 15802 ROSS HAWKINS IONIZED 0 [facility] INC INC NEBULIZER E0570 DAREK OSWALD WITH 0 HOME MED HOME MED COMPRESSO EQUIP. L EQUIP. 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 LABORATOR TRACHOMAT IES IES IS AMPLIFIED PROBE TQ COMPUTER- 97800 [place] CLEO AIDED 0 MEDICAL NOHEMI DETECTION IMAGING ASS SCREENING MAMMOGRAP HY SCREENING G0202 [place] CLEO 0 MEDICAL NOHEMI MAMMOGRAP IMAGING HY HERNÁN ASS INCL CAD WHEN PERFORMD BLOOD 90444 ROSS HAWKINS COUNT 0 [facility] COMPLETE INC INC AUTO&AUTO DIFRNTL WBC COLLECTIO 93709 ROSS HAWKINS N VENOUS 0 [facility] BLOOD INC INC VENIPUNCT URE 3D 32578 ROSS HAWKINS RENDERING 0 [facility] INC INC W/INTERP& POSTPROC DIFF WORK STATION DUPLEX 98464 BALDEV GALLO SCAN 0 MEDICAL NOHEMI EXTRACRAN IMAGING IAL ART ASS COMPL BI STUDY CALCIUM 29836 ROSS HAWKINS TOTAL 0 [facility] INC INC CT THORAX 56532 BALDEV GALLO W/O 0 [facility] [place] [address] ROSS HAWKINS THYROID 0 [facility] STIMULATI [place] [address] ROSS HAWKINS FREE 0 [facility] [place] [address] ROSS HAWKINS THYROID 0 [facility] STIMULATI [facility] INC NG HORMONE TSH NEBULIZER [id number] DAREK OSWALD WITH 0 HOME MED HOME MED COMPRESSO EQUIP. L EQUIP. L R ADMN SET [id number] DAREK OSWALD SM VOL 0 HOME MED HOME MED NONFILTR EQUIP. L EQUIP. L PNEUMAT NEBULIZR DISPBL XTRNL ECG 97434 ROSSNIHARIKA HAWKINS & 48 HR 0 [facility] RECORDING INC INC PHARM [id number] YOUR YOUR DISPEN 0 PHARMACY PHARMACY [facility] [employer] [facility] RX; INITIAL 30-DAY SUPPLY ALBUTEROL J7620 YOUR YOUR TO 2.5 0 PHARMACY PHARMACY [facility] IPRATROPI UM BROM TO 0.5 MG COLLECTIO 87931 ROSS HAWKINS N VENOUS 0 [facility] BLOOD INC INC VENIPUNCT URE INJECTION J0970 BRIJESH LIANG 0 AZUL WATTS ESTRADIOL VALERATE UP TO 40 MG [facility] 63305 [facility] DISCHARGE 0 DON DON DAY MANAGEMEN T 30 MIN/< SBSQ 29714 [facility] SPALDING 0 DON DON CARE/DAY 25 MINUTES SBSQ 04740 [facility] SP[facility] 0 DON DON CARE/DAY 25 MINUTES ECG 68101 ROSS VASQUEZ DWI ROUTINE [facility] W/LEAST P 12 LDS I&R ONLY RHYTHM 35001 LARISA AGUILAR BAB ECG 1-3 0 [facility] INTERPRET ATION & REPRT ON INITIAL 77668 [facility] SP[facility] 0 DON DON CARE/DAY 50 MINUTES INJECTION J0970 BRIJESH LIANG 0 AZUL PALMER STEFANIE ESTRADIOL VALERATE UP TO 40 MG NON-INVAS 58081 [place] 0 MEDICAL NOHEMI PHYSIOLOG IMAGING IC STUDY ASS EXTREMITY 3 LEVLS N-INVAS 38685 ROSS HAWKINS PHYSIOLOG 0 [facility] IC STD INC INC LXTR ART COMPL BI ECHO 26539 [facility] TTHRC R-T 0 PHYSICIAN MEME 2D S GROUP W/WOM-MOD E COMPL SPEC&COLR D INJECTION J0970 BRIJESH ANDINOPEAdrian 0 [place] PALMER STEFANIE ESTRADIOL VALERATE UP TO 40 MG CYSTO 21111 [place] CALIBRATI 0 LTH SONDRA ON DILAT UROLOGY URTL PSC STRIX/[place] [address] ROSS ROSS INFUSION 0 [facility] THERAPY INC INC PROPHYLAX IS/DX EA HOUR ANES 13724 [facility] TRANSURET 0 ANESTH HRAL OF THE W/[place] N[place] [address] ROSS HAWKINS INFUSION 0 [facility] THERAPY/P INC INC ROPHYLAXI S /DX 1ST TO 1 HR DILAT 00426 ROS[facility] HAWKINS FEMALE 0 [facility] URETHRA INC INC GENERAL/C NDJ SPINAL ANES INJECTION J0970 BRIJESH LIANG, 0 [place] ESTRADIOL VALERATE UP TO 40 MG URINALYSI 37532 BRIJESH LIANG, S 0 [place] [place] MICROSCOP IC ONLY INJECTION J0970 BRIJESH LIANG 0 AZUL PALMER STEFANIE ESTRADIOL VALERATE UP TO 40 MG COLONOSCO 85624 Perla PHILLIPS PY FLX DX 0 JACQUELINE GONZALEZ W/ERIN PALMER PSC SPEC WHEN PFRMD URINALYSI 33349 BRIJESH LIANG, S 0 [place] MICROSCOP IC ONLY INJECTION J0970 BRIJESH LIANG, 0 [place] ESTRADIOL VALERATE UP TO [address] THORAX 31916 BALDEV LAURAUTCHER, W/O 0 MEDICAL CIRA CONTRAST IMAGING MATERIAL ASSOCIATE S 3D 93669 [facility], RENDERING 0 MEDICAL [facility]A IMAGING W/INTERP& ASSOCIATE POSTPROC S DIFF WORK STATION PLETHYSMO 89476 [facility] COHEN GRAPY TOT 0 MEDICAL PARI BDY I&R SERV ONLY [facility] PULMONARY 29357 [place] [facility] STRESS 0 [facility] LOVING TESTING SERV SIMPLE [facility] CARBON 10879 [place] [facility] MONOXIDE 0 MEDICAL PARI DIFFW/CAP SERV [facility] BRNCDILAT 40295 [facility] HAWKINS RSPSE 0 [facility] SPMTRY INC INC PRE&POST- BRNCDILAT ADMN FUNCTIONA 21314 [facility] HAWKINS L 0 [facility] RESIDUAL INC INC CAPACITY OR RESIDUAL VOLUME DETER 28141 ROSS HAWKINS MALDISTRI 0 [facility] BJ OF INC INC INSPIRED GAS N WSHOT CURVE DETER 83564 ROSS HAWKINS AIRWY 0 [facility] CLOSING INC INC VOL 1 BRTH TSTS URINLS 60368 BRIJESH LIANG, DIP 0 [place] STICK/TAB LET REAGNT NON-AUTO MICRSCPY COMPLX 01372 BRIJESH LIANG CYSTOMETR 0 [facility] [place] O W/VOID PRESS & URETHRAL PROFIL SIMPLE 86481 BRIJESH LIANG UROFLOMET 0 [facility] RY URINLS 42848 BRIJESH LIANG, DIP 0 [facility] [place] STICK/TAB LET REAGNT NON-AUTO MICRSCPY INJECTION J0970 BRIJESH LIANG, 0 [place] [place] ESTRADIOL VALERATE UP TO 40 MG INJECTION J0970 BRIJESH LIANG, 0 [place] [place] ESTRADIOL VALERATE UP TO 40 MG RADIOLOGI 06200 Perla MOSLEY EXAM 0 MEDICAL CIRA CHEST 2 IMAGING VIEWS ASSOCIATE FRONTAL&L S ATERAL ECG 13643 ROSS JERROD, ROUTINE 0 [facility] W/LEAST PROF SERV 12 LDS I&R ONLY ECG 27940 ROSS ROSS ROUTINE 0 [facility] ECG INC INC W/LEAST 12 LDS TRCG ONLY W/O I&R PRESSURIZ 96140 ROSS ROSS ED/NONPRE 0 [facility] SSURIZED INC INC INHALATIO N TREATMENT INJECTION J0970 BRIJESH LIANG, 9 [place] [place] ESTRADIOL VALERATE UP TO 40 MG INJECTION J0970 BRIJESH LIANG, 9 [place] ESTRADIOL VALERATE UP TO 40 MG IADNA 70026 [facility] [place] 9 [facility] TRACHOMAT IS AMPLIFIED PROBE TQ CYTP C/V 73119 [facility] AUTO THIN 9 [facility] LYR PREPJ SCR MNL RESCR PHYS IADNA 16709 [facility] [place] 9 [facility] GONORRHOE AE AMPLIFIED PROBE TQ SCREENING 13391 ROSS HAWKINS 9 [facility] MAMMOGRAP INC INC HY BILATERAL COMPUTER- 53919 ROSS HAWKINS AIDED 9 [facility] DETECTION INC INC SCREENING MAMMOGRAP HY INJECTION J0970 Colt GRANT MD ESTRADIOL VALERATE UP TO 40 MG L HRT 65004 [facility] CODY OROSCOI 9 PHYSICIAN [place] DIANE S GROUP RETROGRAD E BRACHIAL PERQ I SI&R 09597 [facility] KWESI F/NJX PX 9 PHYSICIAN [place] NYE S GROUP C-CATHJ PULM&/[place] [address] [facility] FALLUJI, C-CATHJ 9 PHYSICIAN [place] F/SLCTV C S GROUP ANGRPH I SI&R 48559 [facility] KWESI, F/NJX PX 9 PHYSICIAN [place] DURING S GROUP C-CATHJ VENTR&/AT R ANGRPH INJECTION 89573 [facility] KWESI, CARDIAC 9 PHYSICIAN NADE[place] CATHJ L S GROUP [place]ENTR/[place] [address] [facility] PRASHANTHUDAYO, C-CATHJ 9 PHYSICIAN [place] F/AORTOGR S GROUP APY ECG 52385 [place] MAYELA, ROUTINE 9 LEE Olguin C ECG CLINIC W/LEAST PSC 12 LDS I&R ONLY RADIOLOGI 36419 Perla MOSLEY EXAM 9 MEDICAL CIRA CHEST 2 IMAGING VIEWS ASSOCIATE FRONTAL&L S ATERAL RADIOLOGI 99584 ROSS HAWKINS C EXAM 9 [facility]P CHEST 2 INC INC VIEWS FRONTAL&L ATERAL COMPREHEN 51814 ROSS HAWKINS SIVE 9 [facility] METABOLIC INC INC PANEL COLLECTIO 51998 ROSS HAWKINS N VENOUS 9 [facility] BLOOD INC INC VENIPUNCT URE BLOOD 19697 ROSS HAWKINS COUNT 9 [facility]OSP COMPLETE INC INC AUTO&AUTO DIFRNTL WBC INJECTION J0970 BRIJESH LIANG, 9 [place] [place] ESTRADIOL VALERATE UP [place] 40 [place] [address] ROSS HAWKINS INFUSION 9 [facility] HOSP THERAPY INC INC PROPHYLAX IS/DX EA HOUR ECHO 32742 ROSS HAWKINS TRANSESOP 9 [facility]OSP HAG R-T INC INC 2D W/PRB IMG ACQUISJ I&R DOP 78897 ROSS HAWKINS ECHOCARD 9 [facility] COLOR [place] [address] ROSS HAWKINS INFUSION 9 [facility]OS[facility] THERAPY/P INC INC ROPHYLAXI S /DX 1ST TO 1 HR 3D 94868 AYO HARRINGTON 9 [facility]ICAL [place] P IMAGING W/INTERP& ASSOCIATE POSTPROC S DIFF WORK STATION CT THORAX 91151 [place] KAZ, 9 [facility] [place] P W/CONTRAS IMAGING T ASSOCIATE MATERIAL S RADIOLOGI 24283 [place] KAZ, C EXAM 9 MEDICAL [place] P CHEST 2 IMAGING VIEWS ASSOCIATE FRONTAL&L S ATERAL RADIOLOGI 52355 [place] CLEO, C EXAM 9 MEDICAL CIRA CHEST 2 IMAGING VIEWS ASSOCIATE FRONTAL&L S ATERAL ECHO 15022 [facility] KWESI [facility] R-T 9 PHYSICIAN NADEEM Simon GROUP W/WOM-MOD E COMPL SPEC&COLR D INJECTION J0970 Colt GRANT MD ESTRADIOL VALERATE UP TO 40 MG SEDIMENTA 51967 ROSS HAWKINS TION RATE 9 [facility] RBC INC INC NON-AUTOM ATED CREATINE 98570 ROSS HAWKINS KINASE MB 9 [facility] FRACTION INC INC ONLY CREATINE 38966 ROSS HAWKINS KINASE 9 [facility] TOTAL INC INC ECG 86280 ROSS HAWKINS ROUTINE 9 [facility] ECG INC INC W/LEAST 12 LDS TRCG ONLY W/O I&R COMPREHEN 87373 ROSS HAWKINS SIVE 9 [facility] METABOLIC INC INC PANEL ECG 79014 LARISA CARBALLOEY, ROUTINE 9 EMERGENCY TIMOTHY S ECG SERVICES W/LEAST 12 LDS ASSOCIATE I&R ONLY S PRESSURIZ 04577 ROSS HAWKINS ED/NONPRE 9 [facility] SSURIZED INC INC INHALATIO N TREATMENT NATRIURET 22654 ROSS HAWKINS IC 9 [facility] [place] [address] ROSS HAWKINS TROPONIN 9 [facility] QUANTITAT INC INC CLAUDE BLOOD 99765 ROSS HAWKINS COUNT 9 [facility] COMPLETE INC INC AUTO&AUTO DIFRNTL WBC INJECTION J0970 Colt GRANT MD ESTRADIOL VALERATE UP TO 40 MG RADIOLOGI 83277 PETRA LAMBERT C 9 DON R DON R EXAMINATI ON CHEST SINGLE VIEW FRONTAL INJECTION J0970 BRIJESH LIANG, 9 [place] [place] ESTRADIOL VALERATE UP TO 40 MG OPHTHALMO 90637 TERENCE PRATT, FAUSTINOY 9 PARI YAÑEZ EXTENDED [...] ESTRADIOL VALERATE UP TO 40 MG RADIOLOGI 04469 [facility] FORREST EXAM 9 MEDICAL CIRA CHEST 2 IMAGING VIEWS ASSOCIATE FRONTAL&L S ATERAL BASIC 68461 ROSS HAWKINS METABOLIC 9 [facility] [place] [address] ROSS HAWKINS THYROID 9 [facility] STIMULATI INC INC NG HORMONE TSH BLOOD 08835 ROSS HAWKINS COUNT 9 [facility] COMPLETE INC INC AUTO&AUTO DIFRNTL WBC URNLS DIP 32665 ROSS HAWKINS 9 [facility] STICK/TAB INC INC LET REAGENT AUTO MICROSCOP Y LIPID 38800 ROSS HAWKINS PANEL 8 [place] [address] ROSS HAWKINS THYROID 8 [facility] STIMULATI INC INC NG HORMONE TSH COLLECTIO 87896 ROSS HAWKINS N VENOUS 8 [facility] BLOOD INC INC VENIPUNCT URE CALCIUM 80288 ROSS HAWKINS TOTAL 8 [facility] INC INC INJECTION J1040 PETRA LAMBERT 8 DON R DON R METHYLPRE DNISOLONE ACETATE 80 MG INJECTION J0970 BRIJESH LIANG, 8 [place] ESTRADIOL VALERATE UP TO 40 MG INJECTION J0970 BRIJESH LIANG, 8 [place] [place] ESTRADIOL VALERATE UP TO 40 MG CYTP EVAL 67067 PATHOLOGY PATHOLOGY FINE 8 & & NEEDLE CYTOLOGY CYTOLOGY ASPIRATE LAB LAB INTERP & REPORT PUNCTURE 41641 [place] DANIEL MCCURDYO 8 MEDICAL [place] [address] [place] KAZ GUIDANCE 8 MEDICAL [place] P NEEDLE IMAGING PLACEMENT ASSOCIATE IMG S&I S US BREAST 01845 ROSS HAWKINS REAL 8 [facility] TIME INC INC W/[place] NFS 40801 ROSS HAWKINS THER 8 [facility] PROPH/DX INC INC 1ST >1 HR IV NFUS 43457 ROSS HAWKINS THER 8 [facility] PROPH/DX INC INC EA HR SPECIAL 56319 PATHOLOGY PATHOLOGY STAIN 8 & & GROUP 1 CYTOLOGY CYTOLOGY MICROORGA LAB LAB NISMS I&R SPCL STN 34021 PATHOLOGY PATHOLOGY 2 I&R 8 & & EXCPT CYTOLOGY CYTOLOGY MICROORG/ LAB LAB ENZYME/IM CYT EGD 79673 [place] JENNIFER, TRANSORAL 8 [facility] BIOPSY SERV SINGLE/[place] [address] PATHOLOGY PATHOLOGY SURG 8 & & PATHOLOGY CYTOLOGY CYTOLOGY LAB LAB GROSS&MATY ROSCOPIC EXAM SIMPLE 89788 BRIJESH LIANG UROFLOMET 8 [facility] [place] RY URTL 51182 BRIJESH LIANG, PRESS 8 [facility] [place] PROFILE STDS COMPREHEN 75380 ROSS HAWKINS SIVE 8 [facility] METABOLIC INC INC PANEL BLADDER 64368 BRIJESH LIANG PRESSURE 8 [facility] [place] MEASUREME NT DURING FILLING US BREAST 54079 [facility] MCCURDY REAL 8 MEDICAL [place] P TIME IMAGING W/IMAGE ASSOCIATE DOCUMENTA S TION COLLECTIO 78974 ROSSNIHARIKA HAWKINS N VENOUS 8 [facility]P BLOOD INC INC VENIPUNCT URE LIPID 41714 ROSS ROSS PANEL 8 [facility] [place] [place] [address] ROSS HAWKINS TROPONIN 8 [facility]OSP QUANTITAT INC INC CLAUDE BLOOD 79466 ROSS HAWKINS COUNT 8 [facility]OSP COMPLETE INC INC AUTO&AUTO DIFRNTL WBC ECG 84056 ROSS HAWKINS ROUTINE 8 [facility] ECG INC INC W/LEAST 12 LDS TRCG ONLY W/O I&R BASIC 57540 ROSS HAWKINS METABOLIC 8 [facility]OSP PANEL INC INC CALCIUM TOTAL RADIOLOGI 33211 ROSS HAWKINS C EXAM 8 [facility] CHEST 2 INC INC VIEWS FRONTAL&L ATERAL CREATINE 20545 ROSS HAWKINS KINASE 8 [facility] TOTAL INC INC CREATINE 79876 ROSS HAWKINS KINASE MB 8 [facility] FRACTION INC INC ONLY INJ J0702 PETRA LAMBERT BETAMETHA 8 [facility]I [place] SONE ACETATE & PHOSPHATE 3 MG IAADIADOO 15715 PETRA LAMBERT, [place] STREPTOCO CCUS GROUP A SCR G0123 [facility] CYTOPATH 8 [facility] CERV/VAG INC INC SCR CYTOTECH UND PHYS SUPV INJECTION J0970 BRIJESH LIANG, 8 [place] ESTRADIOL VALERATE UP TO 40 MG CREATINE 17178 ROSS HAWKINS KINASE MB 8 [facility] FRACTION INC INC ONLY CREATINE 95243 ROSS HAWKINS KINASE 8 [facility] HOS[facility] TOTAL INC INC FIBRIN 78432 ROSS HAWKINS DGRADJ 8 [facility] PRODUCTS INC INC D-DIMER QUAL/SEMI SYLWIA RADIOLOGI 24797 ROSS HAWKINS C EXAM 8 [facility] CHEST 2 INC INC VIEWS FRONTAL&L ATERAL BASIC 59743 ROSS HAWKINS METABOLIC 8 [facility] PANEL INC INC CALCIUM TOTAL ECG 66958 ROSS KYARASON, ROUTINE 8 [facility] ECG HOSPITAL W/LEAST PROF SERV 12 LDS I&R ONLY ECG 47658 ROSS HAWKINS ROUTINE 8 [facility] ECG INC INC W/LEAST 12 LDS TRCG ONLY W/O I&R BLOOD 24208 ROSS ALANIZON COUNT 8 [facility] COMPLETE INC INC AUTO&[place] [address] ROSS ALANIZON TROPONIN 8 [facility] QUANTITAT INC INC CLAUDE BLOOD 23076 ROSS HAWKINS COUNT 8 [facility] COMPLETE INC INC AUTO&AUTO DIFRNTL WBC ECG 23320 ROSS HAWKINS ROUTINE 8 [facility] ECG INC INC W/LEAST 12 LDS TRCG ONLY W/O I&R IV NFS 56627 ROSS HAWKINS THER 8 [facility] PROPH/DX INC INC 1ST >1 HR THER 06798 ROSS ROSS PROPH/DX 8 [facility] NJX EA INC INC SEQL IV PUSH SBST/DRUG ANESTHESI 07955 [facility] Chris SMITH ANESTH ROHAN L INTRAPERI OF THE [place] LOWER ABD W/LAPS NOS INJECTION J2405 ROSS HAWKINS 8 [facility] ONDANSETR INC INC ON HCL PER 1 MG IV NFUS 66722 ROSS HAWKINS THER 8 [facility] PROPH/DX INC INC EA HR BASIC 90092 ROSS HAWKINS METABOLIC 8 [facility] PANEL INC INC CALCIUM TOTAL ENTEROLSS 55167 RAO FENTON 8 JR, JR, INTSTINAL ROSARIO F ROSARIO F ADHESION SPX LAPAROSCO 06690 ROSS HAWKINS PY 8 [facility] ENTEROLYS INC INC IS SEPARATE PROCEDURE INJECTION J0970 BRIJESH LIANG, [place] ESTRADIOL VALERATE UP TO 40 MG SCREENING 81434 ROSS HAWKINS 8 [facility] MAMMOGRAP INC INC HY BILATERAL COMPUTER- 70189 CIRO HARRINGTON 8 [facility] YOJANA P DETECTION IMAGING ASSOCIATE SCREENING S MAMMOGRAP HY INJECTION J0970 BRIJESH LIANG, 8 [place] ESTRADIOL VALERATE UP TO 40 [place] IV NFS 00837 ROSS HAWKINS THER 8 [facility] PROPH/DX INC INC 1ST >1 HR BASIC 58690 ROSS HAWKINS METABOLIC 8 [facility] HOSP PANEL INC INC CALCIUM TOTAL BLOOD 88607 ROSSNIHARIKA HAWKINS COUNT 8 [facility]OS[facility] COMPLETE INC INC AUTO&AUTO DIFRNTL WBC INJECTION J0970 BRIJESH LIANG, 8 [place] ESTRADIOL VALERATE UP TO 40 MG DOPPLER 17748 ROSS HAWKINS ECHOCARD 8 [facility]OSP PULSE INC INC WAVE W/SPECTRA L DISPLAY ECHO 77396 ROSS HAWKINS TRANSTHOR 8 [facility]OS[facility] AC R-T 2D INC INC W/WO M-MODE REC COMP DOP 70711 ROSS ALANIZON ECHOCARD 8 [facility]OS[facility] COLOR INC INC FLOW VELOCITY MAPPING RADEX 91523 ROSS HAWKINS SMALL 8 [facility]OS[facility] INTESTINE INC INC W/MULTIPL E SERIAL IMAGES EXTERNAL 01605 ROSS HAWKINS ECG 8 [facility]OSP SCANNING INC INC ANALYSIS REPORT XTRNL ECG 46261 ROSS HAWKINS & 48 HR 8 [facility]OS[facility] RECORDING INC INC INJECTION J1040 PETRA LAMBERT, 8 DON R DON R METHYLPRE DNISOLONE ACETATE 80 MG OPHTHALMO 11680 TERENCE PRATT, FAUSTINOY 8 PARI YAÑEZ EXTENDED RETINAL DRAWING I&R 1ST COLLECTIO 90691 [facility] N VENOUS [address] [place] [address] BLOOD VENIPUNCT URE L HRT 38213 [facility] CATHETERI [address] [place] [address] ZATION [place] [address] [facility] OROSCO C-CATH 8 HEART & NEZAR M F/SLCTV C VASCULAR ANGRPH ASSOC I SI&R 59917 [facility] F/NJX PX [address] [place] [address] DURING C-CATHJ VENTR&/AT R ANGRPH I SI&R 20498 [facility] F/NJX PX [address] [place] [address] DURING C-CATHJ PULM&/OR SELECT INJECTION 71421 [facility] FALLUJI, CARDIAC 8 HEART & NEZAR M CATHJ L VASCULAR VENTR/L ASSOC ATR ANGIOGRAP H INJECTION J2250 [address] [place] HCL PER 1 [address] BLOOD [address] PLATELET AUTOMATED INJECTION J3010 [facility] FENTANYL [address] [place] [address] CITRATE 0.1 MG POTASSIUM [address] PLASMA/WH OLE BLOOD CREATININ 98386 [facility] E BLOOD [address] [place] [address] CHLORIDE 76663 [facility] BLD [address] [place] [address] B[address] [place] [address] [facility] UREA [address] [place] [address] NITROGEN QUANTITAT CLAUDE LOCM Q9967 [facility] 300-[address] [place] [address] MG/ML IODINE CONCENTRA TION PER ML SODIUM [address] PLASMA OR WHOLE BLOOD GLUCOSE [address] LCAUDE BLOOD XCPT REAGENT STRIP INTRDUCR/ C1894 [facility] SHEATH [address] [place] [address] NOT GUID INTRACARD EP NON-LASR INJECTION J0970 BRIJESH LIANG, 8 [place] ESTRADIOL VALERATE UP TO 40 MG RADEX 41842 [facility] MCCURDY, ABDOMEN 8 MEDICAL [facility] Licea COMPL IMAGING W/DCBTS&/ ASSOCIATE ERC VIEWS S RADEX 21690 ROSS HAWKINS ABDOMEN 1 8 [facility] INC INC ANTEROPOS TERIOR VIEW SIMPLE 63802 B[facility]JESH [place] UROFLOMET 8 AZUL LIANG MD RY BLADDER 55178 BRIJESH [place] PRESSURE 8 AZUL LIANG MD MEASUREME NT DURING FILLING INJECTION J0970 BRIJESH [place] 8 AZUL LIANG MD ESTRADIOL VALERATE UP TO 40 MG ANES 70376 [facility] LOWER 8 ANESTH INTESTINE ANESTHESI OF THE A OF THE [place] ENDOS[place] [address] PATHOLOGY PATHOLOGY SURG 8 & & PATHOLOGY CYTOLOGY CYTOLOGY LAB LAB GROSS&MATY ROSCOPIC EXAM COLSC FLX 74316 ROSS ROSS W/RMVL 8 [facility] OF TUMOR [place] [address] ROSS ROSS THER 8 [facility] PROPH/DX INC INC 1ST >1 HR Encounters Encounter Start End Date Code Location Performer Type Date OFFICE 50754 [facility] HERR OUTPATIEN 7 7 PHYSICIAN T VISIT S GROUP 10 MINUTES [facility] ROSS - 7 7 [facility] OUTPATIEN INC T OFFICE 85198 NEPHROLOG AGUDELO OUTPATIEN 7 7 Y T VISIT ASSOCIATE 25 S OF BERRY MINUTES OFFICE 30949 ROSS GILES OUTPATIEN 7 7 [facility] 10 P [facility] ROSS - 7 7 [facility] OUTPATIEN INC T OFFICE 21635 [place] [facility] OUTPATIEN 7 7 MEDICAL T VISIT SERV 25 FOUNDATIO MINUTES N OFFICE 37956 [facility] LAM OUTPATIEN 7 7 [facility] T VISIT MEDICAL 15 G MINUTES OFFICE 65735 [facility] OUTPATIEN 7 7 PHYSICIAN T VISIT S GROUP 15 MINUTES OFFICE 78439 NEPHROLOG AAMIR OUTPATIEN 7 7 Y T VISIT ASSOCIATE 25 S OF BERRY MINUTES OFFICE 68170 [facility] BREEZY OUTPATIEN 6 6 PHYSICIAN T VISIT S GROUP 25 MINUTES OFFICE 88699 [place] ZIMMERMAN OUTPATIEN 6 6 MEDICAL T NEW 20 SERV MINUTES FOUNDATIO N OFFICE 21290 NEPHROLOG TENA OUTPATIEN 6 6 Y T VISIT ASSOCIATE 25 S OF BERRY [facility] ROSS - 6 6 [facility] OUTPATIEN INC T OFFICE 16227 [facility]SS NETTIE OUTPATIEN [address] ROSS - 6 6 [facility] OUTPATIEN INC T OFFICE 35610 [facility] BREEZY OUTPATIEN 6 6 PHYSICIAN MATY T VISIT S GROUP 25 [facility] ROSS - 6 6 [facility] OUTPATIEN INC T EMERGENCY 10494 ROSS 6 6 [facility] DEPARTMEN [facility] T VISIT LIMITED/M INOR PROB OFFICE 06016 [facility] JACQUI BRUNSON OUTPATIEN 6 6 PHYSICIAN T VISIT S GROUP 15 MINUTES OFFICE 73474 [facility] OUTPATI[facility] 6 6 Y OF CK JOSE T VISIT [address] ROSS - 6 6 [facility] INPATIENT [facility] ROSS - 6 6 [facility] OUTPATIEN [facility]END[facility] TO [facility] EMERGENCY 43170 ROSS 6 6 [facility] DEPARTMEN [facility] T VISIT LOW/MODER SEVERITY HOSPITAL ROSS - 6 6 [facility] OUTPATIEN INC [facility] ROSS - 6 6 [facility] OUTPATIEN INC [facility] ROSS - 6 6 [facility] OUTPATIEN INC [facility] ROSS - 6 6 [facility] OUTPATIEN INC HOSPITAL ROSS - 6 6 [facility] OUTPATIEN INC [facility] ROSS - 6 6 [facility] OUTPATIEN INC [facility] ROSS - 6 6 [facility] OUTPATIEN INC [facility] ROSS - 6 6 [facility]PATIEN [facility] ROSS - 6 6 [facility] OUTPATIEN INC T OFFICE 51458 [facility] JACQUELINE-M OUTPATIEN 6 6 PHYSICIAN OGHADDAM T VISIT S GROUP 15 MINUTES HOSPITAL ROSS - 6 6 [facility] OUTPATIEN INC T HOSPITAL ROSS - 6 6 [facility] OUTPATIEN INC T EMERGENCY 35673 ROSS 6 6 [facility] DEPARTMEN INC T VISIT LOW/MODER SEVERITY OFFICE 82595 [facility] FITLuz MariaMNTRI OUTPATIEN 6 6 Y OF CK JOSE T VISIT [place] 40 HOSPI MINUTES OFFICE 13147 ROSS GILES OUTPATIEN 6 6 [facility] SONDRA T VISIT [facility] 10 P MINUTES HOSPITAL ROSS - 6 6 [facility] OUTPATIEN INC T OFFICE 59869 [facility] BREEZY OUTPATIEN 6 6 PHYSICIAN MATY T VISIT S GROUP 15 MINUTES HOSPITAL ROSS - 6 6 [facility] OUTPATIEN INC T OFFICE 24980 NEPHROLOG AGUDELO OUTPATIEN 6 6 Y NABIL T VISIT ASSOCIATE 25 S OF BERRY MINUTES OFFICE 81935 [facility] JACQUI TOD OUTPATIEN 6 6 PHYSICIAN T VISIT S GROUP 10 MINUTES OFFICE 30543 [facility] HERR OUTPATIEN 6 6 PHYSICIAN FRANKIE T VISIT S GROUP 10 MINUTES HOSPITAL ROSS - 6 6 [facility] OUTPATIEN INC T OFFICE 05315 [facility] HARPEL OUTPATIEN 6 6 PHYSICIAN STEFANIE T VISIT S GROUP 15 MINUTES OFFICE 64937 [facility] BREEZY OUTPATIEN 6 6 PHYSICIAN MATY T VISIT S GROUP 15 MINUTES HOSPITAL ROSS - 6 6 [facility] OUTPATIEN INC T EMERGENCY 31529 ROSS 6 6 [facility] DEPARTMEN INC T VISIT MODERATE SEVERITY HOSPITAL ROSS - 6 6 [facility] OUTPATIEN INC HOSPITAL ROSS - 6 6 [facility] OUTPATIEN INC T EMERGENCY 36647 ROSS 6 6 [facility] DEPARTMEN INC T VISIT LOW/MODER SEVERITY OFFICE 88176 [facility] JACQUI BRUNSON OUTPATIEN 6 6 PHYSICIAN T VISIT S GROUP 10 MINUTES HOSPITAL ROSS - 6 6 [facility] OUTPATIEN [facility] T OFFICE 61076 [facility] JACQUELINEMichael OUTPATIEN 6 6 PHYSICIAN LORRIAM T NEW 45 S GROUP [facility] ROSS - 6 6 [facility] OUTPATIEN [facility] T EMERGENCY 45449 ROSS 6 6 [facility] T VISIT LOW/MODER SEVERITY OFFICE 56980 ROSS GILES OUTPATIEN 6 6 [facility] 15 P MINUTES HOSPITAL ROSS - 6 6 [facility] OUTPATIEN [facility] T OFFICE 70416 ROSS LOWEKINS OUTPATIEN 6 6 [facility] 10 P [facility] [place] - 6 6 [facility] OUTPATIEN HOSP T OFFICE 05315 NEPHROLOG AGUDELO OUTPATIEN 6 6 Y NABIL T VISIT ASSOCIATE 25 S OF BERRY [facility] 6 6 HOSPITAL OUTPATIEN T OFFICE [id number] [facility] HERR OUTPATIEN 6 6 PHYSICIAN FRANKIE T VISIT S GROUP 15 MINUTES OFFICE 50444 [facility] DON OUTPATIEN 6 6 HEALTH STEFANIE T NEW 45 MEDICAL MINUTES GROUP OFFICE 96875 ROS[facility] GILES OUTPATIEN 6 6 [facility] VISIT HOSPITAL 10 P MINUTES OFFICE 47720 [facility] CARMENZA OUTPATIEN 6 6 PHYSICIAN FRANKIE T VISIT S GROUP 15 MINUTES OFFICE 97536 NEPHROLOG NEEL OUTPATIEN 6 6 Y THO T NEW 60 ASSOCIATE MINUTES S OF BERRY OFFICE 32903 [facility] OUTPATIEN 6 6 MEDICAL JAM T VISIT SERV 15 FOUNDATIO MINUTES [facility] ROSS - 6 6 [facility] OUTPATIEN INC T EMERGENCY 22231 ROSS 6 6 [facility] DEPARTMEN INC T VISIT HIGH/URGE NT SEVERITY OFFICE 39219 [facility] GILES OUTPATIEN 6 6 [facility] T VISIT HOSPITAL 15 P [facility] ROSS - 6 6 [facility] OUTPATIEN INC T OFF[facility] 00003 BRIJESH LIANG OUTPATIEN 6 6 [facility] T VISIT 15 MINUTES HOSPITAL ROSS - 6 6 [facility] OUTPATIEN INC T OFFICE 82809 [facility] PHYSICIAN STONE T VISIT S GROUP SALTY SOTELO 15 MINUTES [facility] ROSS - 5 5 [facility] OUTPATIEN INC T EMERGENCY 05082 ROSS 5 5 [facility] DEPARTMEN INC T VISIT LOW/MODER SEVERITY HOSPITAL ROSS - 5 5 [facility] OUTPATIEN INC [facility] ROSS [facility] 5 5 [facility] OUTPATIEN INC T OFFICE 95923 [facility] CAR [facility] OUTROBERTS [place] 5 5 [facility] T VISIT MEDICAL 15 G MINUTES [facility] [address] [facility] [address] ROSS - 5 5 [facility] ROSS - 5 5 [facility] ROSS [facility] 5 5 [facility] ROSS - 5 5 [facility] ROSS - 5 5 [facility] OUTPATIEN INC T OFFICE 49822 [facility] LAUREN OUTPATIEN 5 5 PHYSICIAN STONE T VISIT S GROUP SALTY SOTELO 15 MINUTES HOSPITAL ROSS - 5 5 [facility] ROSS - 5 5 [facility] ROSS - 5 5 [facility] OUTPATIEN INC [facility] ROSS - 5 5 [facility] OUTPATIEN INC T OFFICE 53217 CAR[facility] HERR OUTPATIEN 5 5 FRANKIE FRANKIE T VISIT 10 [facility] ROSS - 5 5 [facility] OUTPATIEN INC EMERGENCY 05836 ROSS TIJERINA [address] [facility] T VISIT P MODERATE SEVERITY EMERGENCY 30017 ROSS TIJERINA [address] [facility] T VISIT P MODERATE SEVERITY HOSPITAL ROSS - 5 5 [facility] ROSS - 4 4 [facility] ROSS - 4 4 [facility] ROSS - 4 4 [facility] INC T OFFICE 17202 [facility] JULIANPATIEN 4 4 PHYSICIAN T VISIT S GROUP 25 MINUTES [facility] ROSS - 4 4 [facility] ROSS [facility] 4 4 [facility]IEN INC T OFFICE 75128 BREEZY TIJERINA OUTPATIEN 4 4 [facility] 20 MINUTES [facility] ROSS - 4 4 [facility]IEN [facility] ROSS - 4 4 [facility]EN [facility] ROSS - 4 4 [facility] OUTPATIEN [facility] ROSS [facility] 4 4 [facility] [facility] - 3 3 [facility] - 3 3 [facility] OUTPATIEN [facility] ROSS [facility] 3 3 [facility] ROSS [facility] 3 3 [facility] OUT[facility] ROSS - 3 3 [facility] OUTPATIEN [facility] ROSS - 3 3 [facility] OUT[facility]IEN [facility] OFFICE 85196 MCKEMIE MCKEMIE OUTPATIEN 3 3 IRAIDA LOPEZ IRAIDA T VISIT 15 MINUTES EMERGENCY 35612 ALFARIS ALFARIS 3 3 [facility] T VISIT MODERATE SEVERITY HOSPITAL ROSS - 3 3 [facility] OUTPATIEN [facility] ROSS [facility] 3 3 [facility] INPATIENT [facility] OFFICE 83379 MCKEMIE MCKEMIE OUTPATIEN 3 3 IRAIDA IRAIDA NEW 30 MINUTES OFFICE 79742 PETTESaida PETTEY OUTPATIEN 3 3 AINSLEY SCHMITZ [facility] 30 MINUTES [facility] ROSS - 3 3 [facility] OFFICE 50253 KWESI ALFORDUDAYO OUTPATIEN 3 3 [facility] VALENTINE T VISIT 25 MINUTES HOSP[facility] - 2 2 [facility] - 2 2 [facility] T [facility] ROS[facility] - 2 2 [facility] INC T OFFICE 83592 CHAN LOWEKINS OUTPATIEN 2 2 SONDRA SONDRA T VISIT 5 MINUTES OFFICE 72970 HARPEL OUTPATIEN 2 2 STEFANIE T VISIT 5 MINUTES HOSPITAL [facility] - 2 2 [facility] - 2 2 [facility] - 2 2 [facility] - 2 2 [facility] T OFFICE 92071 BRIJESH LIANG OUTPATIEN 2 2 AZUL PALMER STEFANIE T VISIT 5 MINUTES OFFICE 98567 [facility]S OUTPATIEN 2 2 [facility] T VISIT INC 25 MINUTES HOSPITAL [facility]S - 2 2 [facility] INC T OFFICE 83324 BRIJESH LIANG OUTPATIEN 2 2 AZUL PALMER STEFANIE T VISIT 5 MINUTES OFFICE 75891 BRIJESH LIANG OUTPATIEN 2 2 AZUL WATTS T VISIT 5 MINUTES [facility]OSPITAL [facility]S - 1 1 [facility]PATIEN INC T OFFICE 17234 BRIJESH KAISERL OUTPATIEN 1 1 AZUL WATTS T VISIT 5 MINUTES HOSPITAL [facility] - 1 1 [facility] - 1 1 [facility] - 1 1 [facility] INC T OFFICE 18525 BRIJESH LIANG OUTPATIEN 1 1 AZUL WATTS T VISIT 5 MINUTES OFFICE 50739 ROSS GILES OUTPATIEN 1 1 [facility] VISIT HOSPITAL 25 P MINUTES OFFICE 60205 ROSS OUTPATIEN 1 1 [facility] T VISIT INC 25 MINUTES HOSPITAL ROSS - 1 1 [facility] - [facility] 1 [facility] OFFICE 00878 [facility] OUTPATIEN 1 1 PHYSICIAN MEME T VISIT S GROUP 25 MINUTES OFFICE 26758 BRIJESH LIANG OUTPATIEN 1 1 AZUL PALMER STEFANIE T VISIT 5 MINUTES OFFICE 07674 ROSS GILES OUTPATIEN 1 1 [facility] V[facility]OSPITAL 25 P MINUTES OFFICE 22533 BRIJESH LIANG OUTPATIEN 1 1 AZUL PALMER STEFANIE T VISIT 5 MINUTES OFFICE 38229 BRIJESH LIANG OUTPATIEN 1 1 AZUL PALMER STEFANIE T VISIT 5 MINUTES HOSPITAL [facility]S - 1 1 [facility] - 1 1 [facility] OFFICE 57908 ROSS LOWEKINS OUTPATIEN 1 1 [facility] 25 P MINUTES [facility] - 1 1 [facility] INPATIENT [facility] EMERGENCY 94[address] [facility] DEPT 1 1 EMERGENCY MATY VISIT SERVICES HIGH SEVERITY& THREAT FUN OFFICE 44501 Perla PHILLIPS OUTPATIEN 1 1 JACQUELINE SANCHEZ MD [facility] 25 MINUTES OFFICE 16351 BRIJESH LIANG OUTPATIEN 0 0 AZUL PALMER STEFANIE T VISIT 25 MINUTES HOSPITAL ROSS - 0 0 [facility] ROS[facility] - 0 0 [facility] ROSS - 0 0 [facility] OUTPATIEN [facility] T OFFICE 65352 BRIJESH LIANG OUTPATIEN 0 0 AZUL WATTS T VISIT 5 MINUTES EMERGENCY 54493 LARISA SOKADeshaun [facility] DEPT 0 0 EMERGENCY VISIT SERVICES HIGH SEVERITY& THREAT FUNCJ [facility] ROSS - 0 0 [facility] INPATIENT INC OFFICE 04779 COMMONWEA GILES OUTPATIEN 0 0 LTH SONDRA T VISIT UROLOGY 25 PSC MINUTES OFFICE 98054 BRIJESH LIANG OUTPATIEN 0 0 AZUL WATTS T VISIT 5 MINUTES [facility] ROSS - 0 0 [facility] OUTPATIEN [facility] T OFFICE 64481 COMMON[place] GILES OUTPATIEN 0 0 LTH SONDRA T VISIT UROLOGY 25 PSC MINUTES OFFICE 12676 [facility] GILES OUTPATIEN 0 0 LTH SONDRA T VISIT UROLOGY 25 PSC MINUTES OFFICE 84933 BRIJESH LIANG OUTPATIEN 0 0 AZUL WATTS T VISIT 5 MINUTES [facility] ROSS - 0 0 [facility] OUTPATIEN [facility] T OFFICE 01012 [facility] GILES OUTPATIEN 0 0 LTH SONDRA T VISIT UROLOGY 25 PSC MINUTES OFFICE 33084 BRIJESH LIANG OUTPATIEN 0 0 AZUL COLEY R T VISIT 5 MINUTES OFFICE 03717 BRIJESH LIANG, OUTPATIEN 0 0 AZUL COLEY R T VISIT 15 MINUTES OFFICE 09009 BRIJESH LIANG OUTPATIEN 0 0 AZUL WATTS T VISIT 5 MINUTES OFFICE 32038 IVANNA GILES, OUTPATIEN 0 0 LTH FLO D T NEW 30 UROLOGY MINUTES [facility] OFFICE 81481 BRIJESH LIANG OUTPATIEN 0 0 AWILDAL MD COLEY R T VISIT 15 MINUTES OFFICE 91050 BRIJESH LIANG OUTPATIEN 0 0 AWILDAL MD COLEY R T VISIT 15 MINUTES OFFICE 22985 BRIJESH LIANG OUTPATIEN 0 0 AWILDAL MD BRIJESH [place] T VISIT 5 MINUTES HOSPITAL [facility]S - 0 0 [facility] OUTPATIEN INC T OFFICE 79520 BRIJESH LIANG OUTPATIEN 0 0 [facility] [place] T VISIT 25 MINUTES HOSPITAL ROSS - 0 0 [facility] OUTPATIEN INC T OFFICE 96483 BRIJESH LIANG OUTPATIEN 0 0 [facility] [place] T VISIT 25 MINUTES OFFICE 47547 BRIJESH LIANG OUTPATIEN 0 0 [facility] [place] T VISIT 5 MINUTES EMERGENCY 89767 [facility]S 0 0 [facility] DEPARTMEN INC T VISIT MODERATE SEVERITY EMERGENCY 34820 LARISA TIJERINA, 0 0 [facility] HIGH/URGE ASSOCIATE NT S SEVERITY [facility]OSP[facility] - 0 0 [facility] OUTPATIEN INC T EMERGENCY 95487 [facility]S 0 0 [facility] DEPARTMEN INC T VISIT LOW/MODER SEVERITY EMERGENCY 59452 LARISA TIJERINA, 0 0 EMERGENCY [facility] SERVICES T VISIT HIGH/URGE ASSOCIATE NT S SEVERITY [facility]OSPITAL [facility] - 0 0 [facility] OUTPATIEN INC T OFFICE 32950 BRIJESHLESLIE CASTILLO 9 9 [facility] [place] T VISIT 5 MINUTES OFFICE 76201 LESLIE GRANT 9 9 [facility] [place] T VISIT 40 MINUTES OFFICE 91533 JACQUELINE PHILLIPS CONSULTAT 9 9 , FLORECITA BERNABE ION NEW/ESTAB PATIENT 60 MIN HOSPITAL [facility]S - 9 9 [facility] OUTPATIEN INC T EMERGENCY 50828 LARISA CARRASCO, 9 9 EMERGENCY [facility] DEPARTMEN SERVICES T VISIT MODERATE ASSOCIATE SEVERITY S OFFICE 27550 LESLIE GRANT 9 9 [facility] [place] T VISIT 5 MINUTES EMERGENCY 66148 LARISA TYLER, 9 9 EMERGENCY [facility] DEPARTMEN SERVICES T VISIT HIGH/URGE ASSOCIATE NT S SEVERITY EMERGENCY 11720 ROSS 9 9 [facility] DEPARTMEN INC T VISIT LOW/MODER SEVERITY HOSPITAL [facility] - 9 9 [facility] OUTPATIEN INC T OFFICE 00170 [facility] LESLIE OROSCO 9 9 PHYSICIAN NADEEM [place] T VISIT S GROUP 25 MINUTES HOSPITAL ROSS - 9 9 [facility] OUTPATIEN INC T OFFICE 01462 LESLIE GRANT 9 9 [facility] [place] T VISIT 5 MINUTES HOSPITAL ROSS - 9 9 [facility] OUTPATIEN INC T HOSPITAL ROSS - 9 9 [facility] OUTPATIEN INC T HOSPITAL ROSS - 9 9 [facility] OUTPATIEN INC T EMERGENCY 95487 LARISA AGUILAR, 9 9 EMERGENCY [facility]ARY[facility] DEPARTMEN SERVICES O T VISIT HIGH/URGE ASSOCIATE NT S SEVERITY EMERGENCY 83932 ROSS 9 9 [facility] DEPARTMEN INC T VISIT LOW/MODER SEVERITY OFFICE 70867 PETRA LAMBERT OUTPATIEN 9 9 DON R DON R T VISIT 15 MINUTES EMERGENCY 37528 LARISA TIJERINA DEPT 9 9 EMERGENCY [facility] VISIT SERVICES HIGH SEVERITY& ASSOCIATE THREAT S [facility] ROSS - 9 9 [facility] OUTPATIEN INC T OFFICE 77440 JULIAN GRANTPATIDENNISE 9 9 [facility] [place] T VISIT 5 MINUTES EMERGENCY 04901 ROSS 9 9 [facility] DEPARTMEN INC T VISIT HIGH/URGE NT SEVERITY OFFICE 37278 BRIJESH LIANG OUTPATIDENNISE 9 9 [facility] [place] T VISIT 5 MINUTES HOSPITAL ROSS - 9 9 [facility] OUTPATIEN INC T EMERGENCY 03920 LARISA RUTLEDGE, 9 9 EMERGENCY [facility] DEPARTMEN SERVICES T VISIT MODERATE ASSOCIATE SEVERITY S EMERGENCY 55713 ROSS 9 9 [facility] DEPARTMEN INC T VISIT LIMITED/M INOR PROB OFFICE 22487 PETRA LAMBERT OUTPATIEN 9 9 DON R DON R T VISIT 15 MINUTES HOSPITAL ROSS - 9 9 [facility] OUTPATIEN INC T EMERGENCY 65583 ROSS 9 9 [facility] DEPARTMEN INC T VISIT LIMITED/M INOR PROB EMERGENCY 14973 LARISA MARROQUIN, 9 9 EMERGENCY ANY R DEPARTMEN SERVICES T VISIT MODERATE ASSOCIATE SEVERITY S OFFICE 59261 LESLIE BERTRAND 9 9 FABIENNE WOR[place] T VISIT SERV 25 FOUNDATIO MINUTES OFFICE 15305 TERENCE PRATT OUTPATIEN 9 9 PARI YAÑEZ T VISIT 40 MINUTES OFFICE 09746 LESLIE GRANT 9 9 AZUL COLEY R T VISIT 5 MINUTES OFFICE 93878 LESLIE GRANT 9 9 AZUL CO[place] R T VISIT 5 MINUTES OFFICE 96557 LESLIE GRANT 9 9 AZUL CO[place] R T VISIT 5 MINUTES OFFICE 08149 PETRA LAMBERT OUTPATIEN 9 9 DON R DON R T VISIT 15 MINUTES OFFICE 47563 LESLIE GRANT 9 9 [facility] [place] T VISIT 5 MINUTES EMERGENCY 90233 JUSTINO TIJERINA, DEPT 9 9 [facility] VISIT CORPORATI HIGH ON SEVERITY& THREAT [facility] HOSPITAL ROSS - 9 9 [facility] OUTPATIEN INC T EMERGENCY 53840 ROSS 9 9 [facility] DEPARTMEN INC T VISIT MODERATE SEVERITY HOSPITAL ROSS - 8 8 [facility] OUTPATIEN INC T OFFICE 93871 PETRA LAMBERT OUTPATIEN 8 8 DON R DON R T VISIT 15 MINUTES OFFICE 06451 PETRA LAMBERT OUTPATIEN 8 8 DON R DON R T VISIT 15 MINUTES OFFICE 21112 LESLIE GRANT 8 8 AZUL CO[place] R T VISIT 5 MINUTES OFFICE 96347 LESLIE GRANT 8 8 [facility] [place] T VISIT 25 MINUTES OFFICE 63182 LESLIE OTOOLE 8 8 MEDICAL CLYDE T VISIT SERV 10 FOUNDATIO MINUTES OFFICE 48823 LESLIE GRANT 8 8 AZUL CO[place] R T VISIT 5 MINUTES OFFICE 08659 LESLIE GRANT 8 8 [facility] [place] T VISIT 25 MINUTES OFFICE 70977 PETRA LAMBERT OUTPATIEN 8 8 DON R DON R T VISIT 15 MINUTES HOSPITAL ROSS - 8 8 [facility] OUTPATIEN [facility] T HOSPITAL ROSS - 8 8 [facility] T OFFICE 11949 LESLIE LEMUS 8 8 MEDICAL GEN T NEW 30 SERV ER A MINUTES FOUNDATIO OFFICE 90094 RODOLFO RODRIGUEZ [facility]UTR[facility]ERTS [place] 8 8 MEDICAL ANDER T VISIT SERV 25 FOUNDATIO MINUTES OFFICE 65229 PETRA LAMBERT OUTPATIEN 8 8 DON R DON R T VISIT 15 MINUTES HOSPITAL ROSS - 8 8 [facility] OUTPATIEN [facility] - 8 8 [facility] T EMERGENCY 90774 [facility] 8 8 [facility] DEPARTMEN [facility] T VISIT HIGH/URGE NT SEVERITY OFFICE 88106 PETRA LAMBERT OUTPATIEN 8 8 DON R DON R T VISIT 15 MINUTES OFFICE 51678 LESLIE GRANT 8 8 [facility] [place] T VISIT 40 MINUTES OFFICE 64151 PETRA LAMBERT OUTPATIEN 8 8 DON R DON R T VISIT 15 MINUTES EMERGENCY 61575 ROSS 8 8 [facility] DEPARTMEN [facility] T VISIT MODERATE SEVERITY HOSPITAL ROSS - 8 8 [facility] OUTPATIEN [facility] T HOSPITAL ROSS - 8 8 [facility] OUTPATIEN INC T OFFICE 46997 LESLIE GRANT 8 8 [facility] [place] T VISIT 5 MINUTES HOSPITAL ROSS - 8 8 [facility] OUTPATIEN INC T OFFICE 50188 ALLRAN ALLRAN OUTPATIEN 8 8 JR JOHN, T VISIT ROSARIO Mary 25 MINUTES OFFICE 68158 BRIJESH LIANG OUTPATI 8 8 [facility] [place] T VISIT 5 MINUTES OFFICE 25545 RODOLFO RODRIGUEZ [facility] [place] 8 8 FABIENNE ANDER T VISIT SERV 25 FOUNDATIO MINUTES OFFICE 46897 [facility] DON Dariana HURLEY R T VISIT 15 MINUTES EMERGENCY 24710 ROSS 8 8 MEM [facility] DEPARTMEN [facility] T VISIT LOW/MODER SEVERITY HOSPITAL ROSS - 8 8 [facility] OUTPATIEN [facility] T HOSPITAL ROSS - 8 8 [facility] OUTPATIEN [facility] T EMERGENCY 55012 ROSS 8 8 [facility] DEPARTMEN INC T VISIT HIGH/URGE NT SEVERITY OFFICE 86413 ALLRAN ALLRAN OUTPATIEN 8 8 JR JOHN, T VISIT ROSARIO Mary 15 MINUTES OFFICE 56918 ALLRAN ALLRAN OUTPATIEN 8 8 JR JOHN, T VISIT ROSARIO Mary 25 MINUTES HOSPITAL ROS[facility] - 8 8 [facility] OUTPATIEN INC T OFFICE 02093 BRIJESH LIANG OUTPATI 8 8 [facility] [place] T VISIT 5 MINUTES HOSPITAL ROSS - 8 8 [facility] OUTPATIEN INC T HOSPITAL ROSS - 8 8 [facility] OUTPATIEN INC T OFFICE 80560 TERENCE PRATT, CLARI 8 8 PARI MARSHALL/ESTAB PATIENT 80 MIN OFFICE 11893 PETRA LAMBERT [facility] [place] 8 8 DON R DON R T VISIT 15 MINUTES HOSPITAL [facility] - 8 8 [facility] [place] T OFFICE [address] [facility] 8 8 AZUL Hassan VISIT 25 MINUTES [facility] AGUADA - 8 8 [facility] OUTPATIEN [facility] T OFFICE [address] [facility] 8 8 DON R DON R T VISIT 15 MINUTES HOSPITAL [facility] 8 8 [facility] OUTPATIEN INC T OFFICE 99030 [facility]OLFO ROD[facility]IG[facility]Z [facility] FABIENNE [place] T VISIT SERV 25 FOUNDATIO MINUTES
--- OUTSIDE RECORDS SUMMARY | 2017-04-05 22:39 | External Medical Summary Rpt ---
Author Author JUAN Sauceda, JUAN [employer] Organization [employer] Address Unknown Phone Unavailable Results Urinalysis macro (dipstick) panel in Urine Observa Value Referen Units Interpr Notes Date tion ce etation Range Appeara Clear CLEAR No No No Zi 4 nce of informa informa informa 2017 Urine tion in tion in tion in 1:07 PM source source source data data data Bilirub NEGATIV NEG No No No Zi 4 in E informa informa informa 2017 [Presen tion in tion in tion in 1:07 PM ce] in source source source Urine data data data by Test strip Erythro 3+ NEG No Abnorma No Zi 4 cytes informa l informa 2017 [Presen tion in tion in 1:07 PM ce] in source source Urine data data Color RED YELLOW No No No Zi 4 of informa informa informa 2017 Urine tion in tion in tion in 1:07 PM source source source data data data Glucose NEG No No No Zi 4 [Mass/vol informati informati informati 2017 1:07 ume] in on in on in on in PM Urine by source source source Test data data data strip Ketones NEGATIV NEG mg/dL No No Zi 4 E informa informa 2017 [Presen tion in tion in 1:07 PM ce] in source source Urine data data by Automat ed test strip pH of 5.0 - 8.5 No Normal No Zi 4 Urine informati informati 2017 1:07 on in on in PM source source data data Protein NEG mg/dL No No Zi 4 [Mass/vol informati informati 2017 1:07 ume] in on in on in PM Urine by source source Automated data data test strip Specific 1.005 - No Normal No Zi 4 gravity 1.030 informati informati 2017 1:07 of Urine on in on in PM source source data data Leukocy 2+ NEG No Abnorma No Zi 4 te informa l informa 2017 esteras tion in tion in 1:07 PM e source source [Presen data data ce] in Urine by Automat ed test strip Nitrite NEGATIV NEG No No No Apr 03 E informa informa informa 2016 [Presen tion in tion in tion in 1:07 PM ce] in source source source Urine data data data by Test strip Urobili 0.2 NEG E.U./dL No No Apr 03 nogen informa informa 2016 [Presen tion in tion in 1:07 PM ce] in source source Urine data data by Test strip
--- OUTSIDE RECORDS SUMMARY | 2017-04-05 22:39 | External Medical Summary Rpt ---
Author Author , Organization [employer] Address Unknown Phone Unavailable Purpose Continuity of Care Document - 08-21-2015 through 2016 Immunization Name Date Route CVX Reacti Commen Provid Is Given on t er Refuse d Influe 140 Histor [place] No nza, 2014 uscula ical P-Free r Inform ation - Source Unspec ified
--- OUTSIDE RECORDS SUMMARY | 2017-04-05 22:39 | External Medical Summary Rpt ---
Author Author JUAN Sauceda, JUAN [employer] Organization [employer] Address Unknown Phone Unavailable [...]
--- OUTSIDE RECORDS SUMMARY | 2017-04-05 22:39 | External Medical Summary Rpt ---
Author Author , Organization [employer] Address Unknown Phone Unavailable Purpose Continuity of Care Document - 08-21-2015 through 2016 Immunization Name Date Route CVX Reacti Commen Provid Is Given on t er Refuse d Influe 140 Histor [place] No nza, 2014 uscula ical P-Free r Inform ation - Source Unspec ified
== END 2017-04-05 22:24 | disposition home or self-care (01) ==
LOC: ER 21:40
DX: T23.161A Burn of first degree of back of right hand, initial encounter (principal); X08.8XXA Exposure to other specified smoke, fire and flames, initial encounter; Y92.000 Kitchen of unspecified non-institutional (private) residence as the place of occurrence of the external cause

== ENCOUNTER → 2017-07-06 | Outpatient (CLI) | payer MEDICARE, MEDICAID ==
[2017-07-06 10:49] LABS: HEMOGLOBIN 12.5 g/dL (12.2-16.2); LYMPH # 1.9 K/mm3 (0.7-4.5); LYMPH % 24.4 % (10-50.0)
[2017-07-06 13:29] LABS: BUN 11 mg/dL (7-18)
[2017-07-06 13:33] LABS: GFR (ESTIMATED) 58 ML/MIN (59-)
== END ==
LOC: LAB 10:29
PROVIDERS: Emergency Medicine
DX: E03.9 Hypothyroidism, unspecified (principal); Z79.899 Other long term (current) drug therapy

== ENCOUNTER → 2017-08-09 | Outpatient (CLI) | payer MEDICARE, MEDICAID ==
--- NOTE | 2017-08-11 15:11 | RADIOLOGY REPORT PS360 ---
[facility] RENAL SCAN WITH CAPTOP/LAS CLINICAL INDICATION: RT HYDRONEPHROSIS ORDERING PHYSICIAN: David Clements MD PATIENT AGE: 56 years DOSE: 10.37 mCi technetium MAG3 30 mg Lasix IV 15 minutes into the scan. COMPARISON: 12/18/2015 FINDINGS: Initial flow images show 77% uptake to the left kidney and 23% uptake to the right kidney. Prompt excretion from the left kidney with slightly delayed excretion from the right kidney. 15 minutes into exam Lasix was injected showing further excretion by both kidneys left greater than right. No evidence of obstruction. IMPRESSION: 1. No evidence of renal obstruction. 2. Decreased uptake of the right kidney compared to the left. This is not significant change compared to the previous exam. There is 77% uptake to the left kidney and 23% uptake to the right kidney
== END ==
LOC: RAD 13:00
DX: I70.1 Atherosclerosis of renal artery (principal); N13.30 Unspecified hydronephrosis; N11.9 Chronic tubulo-interstitial nephritis, unspecified

== ENCOUNTER → 2017-09-09 | Outpatient (CLI) | payer MEDICARE, MEDICAID | LOC: LAB 11:44 | DX: N39.0 Urinary tract infection, site not specified (principal) ==

== ENCOUNTER → 2017-09-15 | Outpatient (CLI) | payer MEDICARE, MEDICAID | LOC: LAB 13:18 | DX: N39.0 Urinary tract infection, site not specified (principal) ==

== ENCOUNTER → 2017-10-12 | Outpatient (CLI) | payer MEDICARE, MEDICAID ==
[2017-10-12 20:07] LABS: AMPHETAMINES/METAMPHETAMINES NEGATIVE ng/mL (<1000)
== END ==
LOC: LAB 15:16
PROVIDERS: Nurse Practitioner Family
DX: Z79.899 Other long term (current) drug therapy (principal)